=== PATIENT | female | born 1945 | race Caucasian/White ===

== ENCOUNTER → 2017-01-08 | Outpatient (CLI) | payer OTHER ==
[~2017-01-08] MED LIST: ACET1TAB84 PO; ALBU18002 INH; ALLO100T PO; APR50 PO; ASPI81TA28 PO; BACL10TA PO; CLBCRM30 EXT; CMD2 PO; CMD4 PO; INSU0.01 SC; INSUINJ12 SQ; LSX40 PO; LVMI SC; MAGN1TAB15 PO; MAGNTAB17 PO; METO1TAB71 PO; METO2.5T PO; NTRGSL/4 UT; NVLG SQ; NVLGI SC; NVLNI SC; OMEP20CA9 PO; OXYC1TAB3 PO; OXYC5TAB PO; POTA20TA16 PO; ROPI0.5T15 PO; ROPI2TAB6 PO; ROSU40TA PO; RQP/2 PO; SPR25 PO; TPRSR/100 PO; VTMD1000 PO; XPNIN INH
[2017-01-08 17:19] LABS: HEMATOCRIT 37.9 % (37-47); MEAN CELL VOLUME 88.8 fL (80-100); MEAN CORPUSCULAR HEMOGLOBIN 27.2 pg (25-34); MEAN CORPUSCULAR HGB CONC 30.6 g/dl (32-36); MEAN PLATELET VOLUME 9.5 fL (7.4-10.4); PLATELET COUNT 294 K/uL (130-400); RED BLOOD COUNT 4.27 M/uL (4.2-5.4); WHITE BLOOD COUNT 8.21 K/uL (4.8-10.8)
[2017-01-08 17:28] LABS: AST/SGOT 29 U/L (15-37); BLOOD UREA NITROGEN 75 mg/dl (7-18); BUN/CREATININE RATIO 37.7 (10-20); CALCIUM 9.2 mg/dl (8.5-10.1); CARBON DIOXIDE 32 mmol/L (21-32); CHLORIDE 92 mmol/L (98-107); GLUCOSE 234 mg/dl (70-99); POTASSIUM 3.3 mmol/L (3.5-5.1); SODIUM 135 mmol/L (136-145); URIC ACID 11.1 mg/dl (2.6-7.2)
[2017-01-08 17:32] LABS: ALKALINE PHOSPHATASE 87 U/L (45-117); ALT/SGPT 23 U/L (12-78)
[2017-01-08 17:34] LABS: FERRITIN 90.7 ng/ml (8.0-388.0)
== END | disposition home or self-care (01) ==
LOC: C.LABPVFM 10:29
PROVIDERS: ATTEND Internal Medicine
DX: D64.9 Anemia, unspecified (principal); I12.9 Hypertensive chronic kidney disease with stage 1 through stage 4 chronic kidney disease, or unspecified chronic kidney disease; E55.9 Vitamin D deficiency, unspecified; N18.3 Chronic kidney disease, stage 3 (moderate); R60.9 Edema, unspecified; M10.9 Gout, unspecified

== ENCOUNTER → 2017-01-16 | Outpatient (CLI) | payer OTHER ==
--- NOTE | 2017-01-16 10:54 | DIAGNOSTIC IMAGING REPORT ---
CT OF THE CHEST WITHOUT IV CONTRAST CLINICAL HISTORY: Carcinoid tumor. COMPARISON STUDY: Chest CT October 19, 2013 and June 12, 2016 and PET/CT September 07, 2015. CT DOSE: 714.79 mGycm TECHNIQUE: Axial images of the chest were obtained without IV contrast. Images were reviewed in the axial, sagittal, and coronal planes. IV contrast was not administered for this examination. FINDINGS: No enlarged axillary, mediastinal or hilar lymph nodes are present. There are findings consistent with a right middle lobectomy. Mild opacity within the operative bed is noted along the resection margin. Numerous pulmonary nodules are similar to exam of June 12, 2016 hours, several these have increased in size since exam of October 19, 2013. The largest is a 1 cm right lower lobe nodule shown image 44 of 63. This is unchanged since exam of June 12, 2016 but increased in size since earlier exams. Numerous additional nodules are similar in appearance to prior CT. No new nodules are identified. No suspicious osseous lesions are present. Evaluation for hilar lymphadenopathy is suboptimal on this unenhanced exam. There is moderate cardiomegaly and extensive coronary artery calcification. There is no pneumothorax or pleural effusion. The gallbladder is surgically absent. IMPRESSION: 1. Findings consistent with interval right middle lobectomy. Mild opacity within the operative bed is likely postsurgical but should be assessed on subsequent studies. 2. No enlarged thoracic lymph nodes although evaluation for hilar lymphadenopathy is suboptimal on this unenhanced exam. 3. Numerous pulmonary nodules measuring up to 1 cm. These are unchanged since CT of June 12, 2016 but the majority of these have moderately increased in size since initial CT of October 19, 2013. These remain indeterminate and slow growing neoplasms could have this imaging appearance. Electronically signed by: Dennis Hernadez M.D. 01/16/2017 10:53 AM Dictated Date/Time: 01/16/2017 10:36 AM
== END | disposition home or self-care (01) ==
LOC: C.CTS 10:03
PROVIDERS: ATTEND Surgery
DX: D3A.00 Benign carcinoid tumor of unspecified site (principal); Z90.2 Acquired absence of lung [part of]; R91.8 Other nonspecific abnormal finding of lung field

== ENCOUNTER 2017-02-24 07:29 | Emergency (ER) | payer OTHER ==
[~2017-02-24 07:29] MED LIST changes: -ACET1TAB84 PO; -ALBU18002 INH; -ALLO100T PO; -APR50 PO; -ASPI81TA28 PO; -CLBCRM30 EXT; -CMD4 PO; -LSX40 PO; -LVMI SC; -MAGNTAB17 PO; -METO2.5T PO; -NTRGSL/4 UT; -NVLG SQ; -NVLNI SC; -OMEP20CA9 PO; -OXYC1TAB3 PO; -POTA20TA16 PO; -ROPI0.5T15 PO; -ROPI2TAB6 PO; -ROSU40TA PO; -RQP/2 PO; -SPR25 PO; -TPRSR/100 PO; -VTMD1000 PO
[2017-02-24 07:33] VITALS: PULSE 72; TEMP 36.5; O2SAT 97; Ht 167.6 cm
[2017-02-24] MEDS ORDERED: OXYCODONE HCL IR 5 MG TAB (IMMEDIATE RELEASE) PO STA (07:50)
--- NOTE | 2017-02-24 08:29 | DIAGNOSTIC IMAGING REPORT ---
RIGHT KNEE 3 VIEWS CLINICAL HISTORY: Right knee pain. COMPARISON: None FINDINGS: Extensive vascular calcification is present. Alignment of the total right knee arthroplasty is anatomic. There is no periprosthetic fracture or lucency. There is a moderate size right knee joint effusion. There is osteophytosis along the patella. IMPRESSION: 1. Status post total right knee arthroplasty. Hardware intact with no periprosthetic fracture or lucency. 2. Moderate size right knee joint effusion. Electronically signed by: Dennis Hernadez M.D. 02/24/2017 8:28 AM Dictated Date/Time: 02/24/2017 8:26 AM
--- NOTE | 2017-02-24 08:32 | EMERGENCY ROOM VISIT NOTE ---
ED Visit Note First contact with patient: 07:38 CHIEF COMPLAINT: Right knee pain times one day HISTORY OF PRESENT ILLNESS: Patient is a 71-year-old white female who presents emergency department for evaluation of pain in her right knee. She states that it started yesterday. She is status post bilateral total knee arthroplasties performed in 2003. She states that she has been doing well until just yesterday. She denies any fall or direct trauma to the knee, no increased physical activity or unusual activity that would have caused her pain. She largely in the anterior aspect of the knee. She feels it radiating down her chandler slightly. She does have a history of gout. She tried applying BenGay and taking Tylenol which did not help. She had to start walking with a cane.She notes pain with weightbearing, flexion and extension. She presently rates her discomfort a 10/10. She does not have any symptoms in the left leg. She denies any calf or leg pain or swelling. No numbness or tingling. REVIEW OF SYSTEMS: Review of systems as per HPI. All other systems reviewed were negative. At least 6 systems reviewed. PMH: Electronic medical records are reviewed and summarized as above/below. See Problem List. SOCIAL HISTORY: Patient lives at home. . PHYSICAL EXAM: Vital Signs: Reviewed Nurse's notes. CONSTITUTIONAL: Patient is a 71-year-old female who is awake and alert and seated in a wheelchair in no acute distress. HEART: Regular rate and rhythm. LUNGS: Clear to auscultation. MUSCULOSKELETAL: Examination of the right knee notes a well-healed anterior surgical incision. There is no significant soft tissue swelling. No joint effusion. No increased warmth or induration. There is no crepitus with range of motion. The knee is globally tender to palpation. No localized tenderness is appreciated. She can extend fully, flexes greater than 90. The calves are soft and nontender. Distal pulses are easily palpable. Chronic venostasis changes noted in the lower legs bilaterally. EMERGENCY DEPARTMENT COURSE: Patient was medicated with oxycodone 10 mg orally. Ice pack was applied. X-rays of the right knee were obtained. There was no evidence for fracture or lucency around the hardware. Differential diagnoses entertained included septic joint, sprain, strain, failed prosthesis, gouty arthropathy, among others. Patient was reviewed with attending physician. She was encouraged to follow-up with Dr. Dyer's office week for recheck of her right knee. RIGHT KNEE 3 VIEWS CLINICAL HISTORY: Right knee pain. COMPARISON: None FINDINGS: Extensive vascular calcification is present. Alignment of the total right knee arthroplasty is anatomic. There is no periprosthetic fracture or lucency. There is a moderate size right knee joint effusion. There is osteophytosis along the patella. IMPRESSION: 1. Status post total right knee arthroplasty. Hardware intact with no periprosthetic fracture or lucency. 2. Moderate size right knee joint effusion. Problem List Medical Problems: (1) Abdominal pain Status: Resolved (2) Acute bronchitis Status: Resolved (3) Acute diastolic CHF (congestive heart failure) Status: Resolved (4) Acute gouty arthropathy Status: Resolved (5) Acute renal failure Status: Resolved (6) Acute renal failure Status: Resolved (7) Anemia Status: Resolved (8) Anticoagulants,Lt,Current Use Status: Chronic (9) Arthritis Status: Chronic (10) Atrial fibrillation Status: Resolved (11) Atrial fibrillation Status: Chronic (12) Benign hypertension Status: Chronic (13) CHF (congestive heart failure) Status: Resolved (14) CHF exacerbation Status: Resolved (15) Cholecystitis Status: Resolved (16) Chronic Kidney Disease, Unspecified Status: Chronic (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 (18) Dehydration Status: Resolved (19) Diabetes mellitus Status: Chronic (20) Esophageal Reflux Status: Chronic (21) Gallstones Status: Resolved (22) Gallstones Status: Resolved (23) Hepatomegaly Status: Chronic (24) Hyperlipidemia Nec/Nos Status: Chronic (25) Hypotension Status: Resolved (26) Hypoxemia Status: Resolved (27) Left ankle pain Status: Resolved (28) Leg muscle spasm Status: Resolved (29) Lung mass Status: Chronic (30) Myocardial infarction Status: Resolved (31) Occipital neuralgia Status: Resolved (32) Pneumonia Status: Resolved (33) Pneumonia Status: Resolved (34) Shingles Status: Resolved (35) Subtherapeutic anticoagulation Status: Resolved Surgical Problems: (1) Appendectomy Status: Resolved (2) Hx of CABG Status: Resolved (3) Hysterectomy Status: Resolved (4) Replacement of total knee joint Status: Resolved (5) Status post double vessel coronary artery bypass Status: Resolved Current/Historical Medications Scheduled Allopurinol (Zyloprim), 200 MG PO DAILY Aspirin (Aspirin Ec), 81 MG PO QAM Cholecalciferol (Vitamin D3), 1,000 INTUNIT PO QAM Furosemide (Furosemide), 80 MG PO TID Hydralazine HCl (Hydralazine HCl), 50 MG PO TID Insulin Detemir (Levemir), 90 UNIT SC AMPM Insulin Human NPH (Novolin N), 35-48 UNIT SC HS Magnesium Chloride-Calcium Car (Slow-Mag), 2 TAB PO TID Metolazone (Zaroxolyn), 2.5 MG PO DAILY Metoprolol Succinate (Metoprolol Succinate ER), 100 MG PO DAILY Omeprazole (Prilosec), 20 MG PO HS Potassium Ext Rel (Klor-Con), 20 MEQ PO QID Ropinirole (Requip), 0.5 MG PO QPM Rosuvastatin Calcium (Crestor), 40 MG PO QAM Warfarin Sod (Coumadin), 4 MG PO UD Scheduled PRN Nitroglycerin (Nitrostat), 0.4 MG UT UD PRN for Chest Pain Oxycodone Immediate Rel Tab (Roxicodone Ir), 1-2 TAB PO Q4H PRN for Severe Pain Miscellaneous Medications Albuterol Sulfate (Proair Respiclick) Clobetasol Propionate (Clobetasol Propionate Cream 0.05%), 1 APPLN EXT Insulin Aspart (Novolog) Allergies Coded Allergies: No Known Allergies (Unverified , 02/24/17) Vital Signs Date Time Temp Pulse Resp B/P Pulse Ox O2 Delivery O2 Flow Rate FiO2 02/24/17 08:54 189/90 02/24/17 07:33 36.5 72 16 205/89 97 Medications Administered Medications (Trade) Dose Ordered Sig/Scott Route Start Time Stop Time Status Last Admin Dose Admin Oxycodone HCl (Roxicodone Immediate Rel Tab) 10 mg NOW STAT PO 02/24/17 07:50 02/24/17 07:52 DC 02/24/17 08:21 10 MG Departure Information Impression Primary Impression: Right knee pain Additional Impression: History of total knee arthroplasty Prescriptions Oxycodone Immediate Rel Tab (ROXICODONE IR) 5 Mg Tab 1-2 TAB PO Q4H Y for Severe Pain, #20 TAB For Initial Treatment Prov: Sahra Paez PA 02/24/17 Referrals RV. Prasad MD (PCP) Braulio Dyer M.D. Patient Instructions My [facility] Additional Instructions DO NOT drive, drink alcohol, operate machinery, or perform dangerous activities today. You were given medications in the ER that can affect your ability to safely function or operate a vehicle. Percocet 5/325 mg: Take 1-2 pills every four hours for breakthrough pain. Avoid alcohol, operating machinery or dangerous equipment, working on ladders or roofs, DRIVING, or situations where being under the influence may be dangerous. It is recommended to use an sjqv-non-fekbayp stool softener such as Colace, 100mg twice daily while taking this medication to avoid constipation. Ice compresses for 20 minutes at a time four times daily for 2-3 days. Use the cane or walker as needed. Rest and elevate your injury. Continue current medications. Return to the ER immediately for any numbness, tingling, severe pain, extreme swelling in the extremity or as needed. Call [facility] tomorrow to arrange follow up for your injury. Problem Qualifiers
[2017-02-24] MEDS ORDERED: NVLG SQ (08:39)
[2017-02-24] MEDS ORDERED: METO2.5T PO (08:39)
[2017-02-24] MEDS ORDERED: ROPI0.5T15 PO (08:39)
[2017-02-24] MEDS ORDERED: OXYC1TAB3 PO (08:43)
[2017-02-24 08:54] VITALS: BP 189/90
--- NOTE | 2017-02-24 14:14 | EMERGENCY ROOM VISIT NOTE ---
ED Visit Note First contact with patient: 07:38 I have personally evaluated this patient examined her and reviewed the pertinent labs and data. I have discussed the case with Marti Paez, the physician medical assistant per diem and agree with the plan. Please refer to the PA note This patient has a prosthetic knee replacement on the right she's had some pain. She's had no trauma. On my exam, it is not red or warm. Her x-ray shows a moderate effusion. We are going treated with pain management. she's going to follow-up with Dr. Dyer. At this point, she has nothing to suggest infection.
[2017-08-03] MEDS ORDERED: CLBCRM30 EXT (08:39)
[2017-08-03] MEDS ORDERED: CMD4 PO (08:39)
[2017-08-03] MEDS ORDERED: NVLNI SC (08:39)
[2017-08-03] MEDS ORDERED: LVMI SC (08:39)
[2017-08-03] MEDS ORDERED: ALLO100T PO (08:39)
[2017-08-03] MEDS ORDERED: TPRSR/100 PO (08:39)
[2017-08-03] MEDS ORDERED: ALBU18002 INH (08:39)
[2017-08-03] MEDS ORDERED: MAGNTAB17 PO (08:39)
[2017-08-03] MEDS ORDERED: NTRGSL/4 UT (10:00)
[2017-08-03] MEDS ORDERED: VTMD1000 PO (14:05)
[2017-08-03] MEDS ORDERED: APR50 PO (14:05)
[2017-08-03] MEDS ORDERED: LSX40 PO (15:23)
[2017-08-03] MEDS ORDERED: POTA20TA16 PO (16:25)
[2017-08-03] MEDS ORDERED: OMEP20CA9 PO (16:25)
[2017-08-03] MEDS ORDERED: ROSU40TA PO (16:25)
[2017-08-03] MEDS ORDERED: ASPI81TA28 PO (16:29)
== END 2017-02-24 08:55 | disposition home or self-care (01) ==
LOC: C.EDB 07:30 → C.EDA 08:55
DX: M25.561 Pain in right knee (principal); Z96.653 Presence of artificial knee joint, bilateral; M10.9 Gout, unspecified; E11.9 Type 2 diabetes mellitus without complications; K21.9 Gastro-esophageal reflux disease without esophagitis; E78.5 Hyperlipidemia, unspecified; I25.2 Old myocardial infarction; Z87.01 Personal history of pneumonia (recurrent); Z95.1 Presence of aortocoronary bypass graft; Z90.710 Acquired absence of both cervix and uterus; Z90.49 Acquired absence of other specified parts of digestive tract; Z79.82 Long term (current) use of aspirin; Z79.4 Long term (current) use of insulin; Z79.01 Long term (current) use of anticoagulants; Z79.899 Other long term (current) drug therapy

== ENCOUNTER → 2017-02-25 | Outpatient (CLI) | payer OTHER ==
[~2017-02-25] VITALS: Ht 167.6 cm; Wt 118.3 kg
[~2017-02-25] MED LIST changes: +ACET1TAB84 PO; +ALBU18002 INH; +ALLO100T PO; +APR50 PO; +ASPI81TA28 PO; -BACL10TA PO; +CLBCRM30 EXT; -CMD2 PO; +CMD4 PO; -INSU0.01 SC; -INSUINJ12 SQ; +LSX40 PO; +LVMI SC; -MAGN1TAB15 PO; +MAGNTAB17 PO; -METO1TAB71 PO; +METO2.5T PO; +NTRGSL/4 UT; +NVLG SQ; -NVLGI SC; +NVLNI SC; +OMEP20CA9 PO; +OXYC1TAB3 PO; -OXYC5TAB PO; +POTA20TA16 PO; +ROPI0.5T15 PO; +ROPI2TAB6 PO; +ROSU40TA PO; +RQP/2 PO; +SPR25 PO; +TPRSR/100 PO; +VTMD1000 PO; -XPNIN INH
[2017-02-25 13:30] VITALS: BP 140/52; PULSE 40; Ht 167.6 cm; Wt 118.3 kg
[2017-02-25 13:32] VITALS: PULSE 53
== END | disposition home or self-care (01) ==
LOC: C.NEUR 12:55
PROVIDERS: ATTEND Internal Medicine Pulmonary Disease
DX: G47.30 Sleep apnea, unspecified (principal); G25.81 Restless legs syndrome

== ENCOUNTER → 2017-03-04 | Outpatient (CLI) | payer OTHER ==
[~2017-03-04] MED LIST changes: +DICL50TA3 PO; +KFL500 PO; +WARF4TAB8 PO
[2017-03-04 12:32] LABS: URINE APPEARANCE CLEAR (CLEAR); URINE BILIRUBIN NEG (NEG); URINE COLOR YELLOW; URINE EPITHELIAL CELL AUTO >30 /lpf (0-5); URINE NITRITE NEG (NEG); URINE PH 6.5 (4.5-7.5); URINE SPECIFIC GRAVITY 1.012 (1.000-1.030); UROBILINOGEN NEG (NEG)
[2017-03-04 12:35] LABS: HEMATOCRIT 36.6 % (37-47); MEAN CELL VOLUME 86.5 fL (80-100); MEAN CORPUSCULAR HEMOGLOBIN 27.4 pg (25-34); MEAN CORPUSCULAR HGB CONC 31.7 g/dl (32-36); MEAN PLATELET VOLUME 9.1 fL (7.4-10.4); PLATELET COUNT 364 K/uL (130-400); RED BLOOD COUNT 4.23 M/uL (4.2-5.4); WHITE BLOOD COUNT 9.08 K/uL (4.8-10.8)
[2017-03-04 12:43] LABS: MANUAL MICROSCOPIC REQUIRED? NO; REVIEW REQ? NO
[2017-03-04 13:03] LABS: URINE PROTIEN/CREAT RATIO 0.1 (0-0.2)
[2017-03-04 13:11] LABS: ALT/SGPT 35 U/L (12-78); AST/SGOT 32 U/L (15-37); BLOOD UREA NITROGEN 97 mg/dl (7-18); BUN/CREATININE RATIO 46.2 (10-20); CALCIUM 9.1 mg/dl (8.5-10.1); CARBON DIOXIDE 36 mmol/L (21-32); CHLORIDE 90 mmol/L (98-107); GLUCOSE 125 mg/dl (70-99); POTASSIUM 2.8 mmol/L (3.5-5.1); SODIUM 134 mmol/L (136-145)
[2017-03-04 13:13] LABS: ALB/GLOB RATIO 0.8 (0.9-2); ALKALINE PHOSPHATASE 110 U/L (45-117); CHOLESTEROL 96 mg/dl (0-200); CHOLESTEROL/HDL RATIO 3.6; HDL CHOLESTEROL 27 mg/dl; LDL CHOLESTEROL CALCULATED 42 mg/dl; TRIGLYCERIDES 133 mg/dl (0-150); VERY LOW DENSITY LIPOPROT CALC 27 mg/dl
[2017-03-04 13:18] LABS: ESTIMATED AVERAGE GLUCOSE 137 mg/dl; HA1C FLAG Normal (Normal)
== END | disposition home or self-care (01) ==
LOC: C.LABPVFM 07:59
PROVIDERS: ATTEND Internal Medicine Nephrology
DX: Z86.79 Personal history of other diseases of the circulatory system (principal); E55.9 Vitamin D deficiency, unspecified; R80.9 Proteinuria, unspecified; D64.9 Anemia, unspecified; N18.3 Chronic kidney disease, stage 3 (moderate); M10.9 Gout, unspecified; D3A.00 Benign carcinoid tumor of unspecified site; E11.8 Type 2 diabetes mellitus with unspecified complications

== ENCOUNTER → 2017-03-11 | Outpatient (CLI) | payer OTHER ==
[2017-03-11 13:36] LABS: BLOOD UREA NITROGEN 74 mg/dl (7-18); BUN/CREATININE RATIO 46.2 (10-20); CALCIUM 9.3 mg/dl (8.5-10.1); CARBON DIOXIDE 32 mmol/L (21-32); CHLORIDE 95 mmol/L (98-107); GLUCOSE 139 mg/dl (70-99); SODIUM 137 mmol/L (136-145)
== END | disposition home or self-care (01) ==
LOC: C.LABPVFM 07:49
PROVIDERS: ATTEND Internal Medicine
DX: E87.6 Hypokalemia (principal)

== ENCOUNTER → 2017-03-13 | Outpatient (CLI) | payer OTHER ==
[2017-03-13 15:05] LABS: BLOOD UREA NITROGEN 52 mg/dl (7-18); BUN/CREATININE RATIO 40.3 (10-20); CALCIUM 8.9 mg/dl (8.5-10.1); CARBON DIOXIDE 30 mmol/L (21-32); CHLORIDE 107 mmol/L (98-107); GLUCOSE 111 mg/dl (70-99); MAGNESIUM 2.2 mg/dl (1.8-2.4); POTASSIUM 4.1 mmol/L (3.5-5.1); SODIUM 143 mmol/L (136-145)
== END | disposition home or self-care (01) ==
LOC: C.LAB1850 13:46
PROVIDERS: ATTEND Internal Medicine Cardiovascular Disease
DX: E87.6 Hypokalemia (principal)

== ENCOUNTER → 2017-03-18 | Outpatient (CLI) | payer OTHER ==
[2017-03-18 12:55] LABS: BLOOD UREA NITROGEN 26 mg/dl (7-18); BUN/CREATININE RATIO 18.5 (10-20); CARBON DIOXIDE 29 mmol/L (21-32); CHLORIDE 102 mmol/L (98-107); GLUCOSE 111 mg/dl (70-99); MAGNESIUM 1.9 mg/dl (1.8-2.4); POTASSIUM 4.3 mmol/L (3.5-5.1); SODIUM 139 mmol/L (136-145)
[2017-03-18 12:56] LABS: PHOSPHORUS 3.9 mg/dl (2.5-4.9)
== END | disposition home or self-care (01) ==
LOC: C.LABPVFM 08:06
PROVIDERS: ATTEND Internal Medicine Nephrology
DX: N18.3 Chronic kidney disease, stage 3 (moderate) (principal)

== ENCOUNTER → 2017-04-09 | Outpatient (CLI) | payer OTHER ==
[2017-04-09 13:11] LABS: BLOOD UREA NITROGEN 40 mg/dl (7-18); BUN/CREATININE RATIO 36.3 (10-20); CALCIUM 8.8 mg/dl (8.5-10.1); CARBON DIOXIDE 24 mmol/L (21-32); CHLORIDE 108 mmol/L (98-107); GLUCOSE 105 mg/dl (70-99); POTASSIUM 4.5 mmol/L (3.5-5.1); SODIUM 141 mmol/L (136-145)
[2017-04-09 13:12] LABS: PHOSPHORUS 3.5 mg/dl (2.5-4.9)
== END | disposition home or self-care (01) ==
LOC: C.LABPVFM 07:35
PROVIDERS: ATTEND Internal Medicine Nephrology
DX: N18.3 Chronic kidney disease, stage 3 (moderate) (principal)

== ENCOUNTER → 2017-05-10 | Outpatient (CLI) | payer OTHER ==
[2017-05-10 13:35] LABS: HEMATOCRIT 33.5 % (37-47)
[2017-05-10 13:43] LABS: ESTIMATED AVERAGE GLUCOSE 146 mg/dl; HA1C FLAG Normal (Normal)
== END | disposition home or self-care (01) ==
LOC: C.LABPVFM 08:10
PROVIDERS: ATTEND Nurse Practitioner Adult Health
DX: E11.8 Type 2 diabetes mellitus with unspecified complications (principal)

== ENCOUNTER → 2017-06-12 | Outpatient (CLI) | payer OTHER ==
[~2017-06-12] MED LIST changes: -KFL500 PO
[2017-06-12 13:27] LABS: BLOOD UREA NITROGEN 48 mg/dl (7-18); BUN/CREATININE RATIO 32.1 (10-20); CARBON DIOXIDE 24 mmol/L (21-32); CHLORIDE 104 mmol/L (98-107); GLUCOSE 114 mg/dl (70-99); SODIUM 138 mmol/L (136-145)
== END | disposition home or self-care (01) ==
LOC: C.LABPVFM 08:00
PROVIDERS: ATTEND Internal Medicine
DX: D49.0 Neoplasm of unspecified behavior of digestive system (principal)

== ENCOUNTER → 2017-06-14 | Outpatient (CLI) | payer OTHER ==
[~2017-06-14] MED LIST changes: +GADAVIST IV PRN
--- NOTE | 2017-06-14 17:20 | DIAGNOSTIC IMAGING REPORT ---
MRI OF THE ABDOMEN WITH AND WITHOUT CONTRAST PANCREAS PROTOCOL CLINICAL HISTORY: Intraductal papillary mucinous neoplasm. COMPARISON STUDY: MRI of the abdomen May 09, 2015 and right upper quadrant ultrasound February 24, 2016. TECHNIQUE: Utilizing a 1.5 Sofia magnet and dedicated coil, multiplanar, multiecho imaging of the abdomen was performed pre and postcontrast administration. Post contrast imaging was performed utilizing dynamic enhancement. Injection of 12.5 cc of Gadavist IV was uneventful. FINDINGS: The liver is enlarged. There is fatty infiltration of the liver. Mild splenomegaly is unchanged. A few nodules within visualized portions the lower lungs are better depicted on recent chest CT of January 16, 2017. These nodules remain indeterminate. A 9 mm nonenhancing T2 hyperintense lesion within the pancreatic body is unchanged since MRI of May 09, 2015. There is no pancreatic or biliary ductal dilatation. Two left adrenal nodules are unchanged since earlier exams. These are benign given stability. The right adrenal gland and right kidney are unremarkable. There is no hydronephrosis. There is no abdominal lymphadenopathy. Cardiomegaly is unchanged. Several left renal cysts are noted. IMPRESSION: 1. No change in the 9 mm cystic lesion within the pancreatic body since prior exam. This is suggestive of a side branch intraductal papillary neoplasm and no imaging follow-up for this lesion is needed. 2. Fatty liver. 3. Stable mild splenomegaly. Electronically signed by: Dennis Hernadez M.D. 06/14/2017 5:19 PM Dictated Date/Time: 06/14/2017 4:32 PM
== END | disposition home or self-care (01) ==
LOC: C.MRI 14:56
PROVIDERS: ATTEND Internal Medicine
DX: D49.0 Neoplasm of unspecified behavior of digestive system (principal); R16.1 Splenomegaly, not elsewhere classified; K76.0 Fatty (change of) liver, not elsewhere classified

== ENCOUNTER → 2017-06-24 | Outpatient (CLI) | payer OTHER ==
[~2017-06-24] MED LIST changes: -GADAVIST IV PRN
--- NOTE | 2017-06-24 14:31 | MAMMOGRAPHY REPORT ---
BILATERAL DIGITAL SCREENING MAMMOGRAM WITH CAD: 06/24/2017 CLINICAL HISTORY: Routine screening. Patient has no complaints. TECHNIQUE: Current study was also evaluated with a Computer Aided Detection (CAD) system. Bilateral CC and MLO views were obtained. COMPARISON: Comparison is made to exams dated: 06/20/2016 mammogram, 06/17/2015 mammogram, 04/20/2014 m ammogram, 03/31/2012 mammogram, 03/28/2011 mammogram, and 03/27/2010 mammogram - [facility] enter. BREAST COMPOSITION: There are scattered areas of fibroglandular density in both breasts. FINDINGS: No suspicious masses, calcifications, or areas of architectural distortion are noted in ei ther breast. There has been no significant interval change compared to prior exams. IMPRESSION: ACR BI-RADS CATEGORY 1: NEGATIVE There is no mammographic evidence of malignancy. A 1 year screening mammogram is recommended. The pa tient will receive written notification of the results. Approximately 10% of breast cancers are not detected with mammography. A negative mammographic report should not delay biopsy if a clinically suggestive mass is present. Kelsey Navarro M.D. /:06/24/2017 12:18:39 Senior Consulting Manager: Soledad RAMEY([place])([place]), [facility] letter sent: Normal 1/2 BI-RADS Code: ACR BI-RADS Category 1: Negative
== END | disposition home or self-care (01) ==
LOC: C.MAMM 09:54
PROVIDERS: ATTEND Internal Medicine
DX: Z12.31 Encounter for screening mammogram for malignant neoplasm of breast (principal)

== ENCOUNTER → 2017-07-17 | Outpatient (CLI) | payer OTHER ==
[~2017-07-17] MED LIST changes: +KFL500 PO
--- NOTE | 2017-07-17 14:02 | DIAGNOSTIC IMAGING REPORT ---
CT SCAN OF THE CHEST WITHOUT IV CONTRAST CLINICAL HISTORY: Follow-up for nodules. History of neuroendocrine tumor and right middle lobe resection. COMPARISON STUDY: Prior chest CT scans dated 01/16/2017 and 07/18/2014. TECHNIQUE: CT scan of the thorax was performed from the thoracic inlet to the upper abdomen. Images are reviewed in the axial, sagittal, and coronal planes. IV contrast was not administered for this examination as per the referring clinician. A dose lowering technique was utilized adhering to the principles of ALARA. CT DOSE: 720.49 mGycm FINDINGS: Thyroid: A 2 cm coarse calcification is again seen in the right thyroid lobe. Additional subcentimeter nodules and calcifications are identified throughout the gland. Thoracic aorta: There is atherosclerotic calcification of the thoracic aorta, which is normal in caliber and 4-vessel variant arch anatomy. Heart: The patient is status post midline sternotomy. The heart is enlarged and without pericardial effusion. The coronary arteries are densely calcified. The pulmonary trunk is dilated, measuring 3.8 cm in diameter. This suggests pulmonary artery hypertension. There is diminished attenuation of the cardiac blood pool as compared to the myocardium suggesting anemia. Lungs and pleural spaces: There are postoperative changes consistent with right middle lobe resection. Scarring is seen at the operative site. There are numerous (greater than 20) pulmonary nodules scattered throughout both lungs, overall similar in both size and distribution from 01/16/2017. The largest nodule is seen at the right lung base on image #233 and measures 1.1 cm. No airspace consolidation or pleural effusion is identified. The trachea and central airways are clear Mediastinum: There are numerous prominent mediastinal lymph nodes which measure up to 11 mm in short axis. Nicky: Not well assessed without IV contrast. Axillae: There is no axillary lymphadenopathy. Upper abdomen: The spleen is enlarged measuring 15 cm in length. The liver appears enlarged and steatotic. A small hiatal hernia is noted. A 1.3 cm left adrenal nodule meets CT criteria for a fat-containing adenoma. Skeletal structures: The skeletal structures are osteopenic. No lytic or blastic bony lesions are seen. Advanced arthritic change is present in the shoulders. Degenerative change is also seen in the thoracic spine. There is a 9 mm calcified nodule identified in the central spinal canal at the level of T9-T10. This is best seen on axial image #213. IMPRESSION: 1. Again seen are postoperative changes from right middle lobe resection. No airspace consolidation or pleural effusion is identified. 2. There are numerous (greater than 20) pulmonary nodules scattered throughout both lungs. These have not significantly changed from 01/16/2017 but have increased in size dating back to studies from 2014. These remain pathologically indeterminant. Given the history of carcinoid tumor slow-growing neoplasm is not excluded. 3. There is an indeterminant 9 mm calcified nodule seen within the central spinal canal at T9-T10. This is of indeterminate etiology, and although this could represent a disc fragment the appearance is atypical. A neoplasm such as meningioma or less likely ependymoma could also have this appearance. Correlation with a contrast-enhanced MRI of the thoracic spine is recommended for further assessment. 4. Cardiomegaly. 5. Hepatic steatosis and splenomegaly. 6. Additional findings as above. Electronically signed by: Albert Bonner M.D. 07/17/2017 2:01 PM Dictated Date/Time: 07/17/2017 1:35 PM
== END | disposition home or self-care (01) ==
LOC: C.CTS 12:46
PROVIDERS: ATTEND Surgery
DX: R91.8 Other nonspecific abnormal finding of lung field (principal); Z90.2 Acquired absence of lung [part of]; I51.7 Cardiomegaly; K76.0 Fatty (change of) liver, not elsewhere classified; R16.1 Splenomegaly, not elsewhere classified

== ENCOUNTER 2017-08-03 18:53 | Emergency (ER) | payer OTHER ==
[~2017-08-03] VITALS: Ht 167.6 cm; Wt 125.0 kg
[~2017-08-03 18:53] MED LIST changes: -ACET1TAB84 PO; -DICL50TA3 PO; -KFL500 PO; -ROPI2TAB6 PO; -RQP/2 PO; -SPR25 PO; -WARF4TAB8 PO
[2017-08-03 18:59] VITALS: TEMP 36.8; Ht 167.6 cm; Wt 125.0 kg
--- NOTE | 2017-08-03 19:15 | EMERGENCY ROOM VISIT NOTE ---
History First contact with patient: 19:03 Chief Complaint: MEDICATION REFILL REQUEST Stated Complaint: RESTLESS LEGS History of Present Illness The patient is a 71 year old female who presents to the Emergency Room with complaints of medication refill request. The patient states that she takes Requip 2 mg at night for restless leg syndrome. She states that she had to take a few extra in the recent past. He states that because of that she ran of her medication 2 days ago. She states that she cannot get it filled until the 12th of this month. She did follow with her diabetes doctor yesterday. The patient denies any chest pain or worsening shortness of breath from baseline. She states she would not be here if she had the medication at home and that is the only reason she presents to the emergency department. Review of Systems A 10 system review of systems was completed with positives and pertinent negatives listed in the HPI. 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 (18) Dehydration (19) Diabetes mellitus (20) Esophageal Reflux (21) Gallstones (22) Gallstones (23) Hepatomegaly (24) Hyperlipidemia Nec/Nos (25) Hypotension (26) Hypoxemia (27) Left ankle pain (28) Leg muscle spasm (29) Lung mass (30) Myocardial infarction (31) Occipital neuralgia (32) Pneumonia (33) Pneumonia (34) Shingles (35) Subtherapeutic anticoagulation Surgical Problems: (1) Appendectomy (2) Hx of CABG (3) Hysterectomy (4) Replacement of total knee joint (5) Status post double vessel coronary artery bypass Family History Diabetes mellitus Heart disease Hypertension Social History Smoking Status: Former Smoker Alcohol Use: none Drug Use: none Marital Status: Housing Status: lives with significant other Occupation Status: retired Current/Historical Medications Scheduled Allopurinol (Zyloprim), 200 MG PO DAILY Aspirin (Aspirin Ec), 81 MG PO QAM Cholecalciferol (Vitamin D3), 1,000 INTUNIT PO QAM Furosemide (Furosemide), 80 MG PO BID Hydralazine HCl (Hydralazine HCl), 50 MG PO TID Insulin Aspart (Novolog), SQ UD Insulin Detemir (Levemir), 35 UNIT SC AMPM Insulin Human NPH (Novolin N), 50 UNIT SC HS Magnesium Chloride-Calcium Car (Slow-Mag), 2 TAB PO TID Metoprolol Succinate (Metoprolol Succinate ER), 100 MG PO DAILY Omeprazole (Prilosec), 20 MG PO HS Potassium Ext Rel (Klor-Con), 20 MEQ PO QID Ropinirole (Requip), 2 MG PO HS Ropinirole Hydrochloride (Requip), 2 MG PO HS Rosuvastatin Calcium (Crestor), 40 MG PO QAM Spironolactone (Spironolactone), 25 MG PO DAILY Warfarin Sod (Coumadin), 4 MG PO UD Scheduled PRN Acetaminophen (Tylenol Arthritis Ext Rel), 1,300 MG PO Q8H PRN for Pain Albuterol Sulfate (Proair Respiclick), 2 PUFF INH Q4 PRN for SOB/Wheezing Nitroglycerin (Nitrostat), 0.4 MG UT UD PRN for Chest Pain Miscellaneous Medications Clobetasol Propionate (Clobetasol Propionate Cream 0.05%), 1 APPLN EXT Physical Exam Vital Signs Date Time Temp Pulse Resp B/P (MAP) Pulse Ox O2 Delivery O2 Flow Rate FiO2 08/03/17 19:40 57 160/63 94 08/03/17 18:59 36.8 63 20 177/63 93 Room Air Physical Exam VITALS: Vitals are noted on the nurse's note and reviewed by myself. Vital signs stable. GENERAL: This is a 71-year-old female, in no acute distress, nondiaphoretic, well-developed well-nourished. SKIN: The skin was without rashes, erythema, edema, or bruising. There is no tenting of the skin. Capillary reflex less than 2 seconds. HEAD: Normocephalic atraumatic. EARS: The external ears are normal in appearance. EYES: Pupils equal round and reactive to light and accommodation. Conjunctivae without injection, sclerae without icterus. Extraocular movements intact. NOSE: Patent, turbinates without inflammation or discharge. MOUTH: Mucous membranes moist. Tonsils are not enlarged. Pharynx without erythema or exudate. Uvula midline. Airway patent. Tongue does not deviate. NECK: Supple without nuchal rigidity. No JVD. HEART: Regular rate and rhythm without murmurs gallops or rubs. LUNGS: Clear to auscultation bilaterally without wheezes, rales or rhonchi. No retractions or accessory muscle use. MUSCULOSKELETAL: No muscle atrophy, erythema, or edema noted. Full range of motion in all extremities. Normal gait. Strength 5/5 throughout. NEURO: Patient was alert and oriented to person place and time. No focal neurological deficits. Medical Decision & Procedures Medications Administered Medications (Trade) Dose Ordered Sig/Scott Route Start Time Stop Time Status Last Admin Dose Admin Ropinirole HCl (Requip Tab) 2 mg ONE STAT PO 08/03/17 19:19 08/03/17 19:20 DC 08/03/17 19:48 2 MG ED Course The patient was seen and examined. Previous visits were reviewed. The patient presents to the emergency department only for medication refill. The patient states she would not be here otherwise. She denies any change in shortness of breath from baseline, chest pain or any other symptoms. The patient was given 2 mg Requip in the emergency department and a prescription. I advised her to take it to a pharmacy to have the 10 day prescription filled and she will likely have to pay kearney. The patient thinks that she may need a higher dose and I encouraged her to discuss this with her doctor. She should return with any worsening symptoms. The patient was also seen and examined by who agrees with the assessment and treatment plan. Medical Decision The differential diagnosis includes medication refill request, chronic pain, chronic restless leg syndrome, among others Medication Reconcilliation Current Medication List: was personally reviewed by me Blood Pressure Screening Patient's blood pressure: Elevated blood pressure Blood pressure disposition: Elevated BP felt to be situational Impression Primary Impression: Medication refill Departure Information Dispostion Home / Self-Care Condition GOOD Prescriptions Ropinirole (Requip) 2 Mg Tab 2 MG PO HS for 10 Days, #10 TAB Prov: Ashley Sellers PA-C 08/03/17 Referrals RV. Prasad MD (PCP) Patient Instructions My [facility], Restless Leg Syndrome Additional Instructions take the prescription to the pharmacy tomorrow Fill the rest when you can on the 12th Return with worsening symptoms
[2017-08-03] MEDS ORDERED: ROPINIROLE HCL 1 MG TAB PO STA (19:19)
--- NOTE | 2017-08-03 19:21 | EMERGENCY ROOM VISIT NOTE ---
ED Visit Note First contact with patient: 19:03 Patient was seen by our PA/VEHICLE INSURANCE AGENT. I was involved in the patient's care and did evaluate the patient myself. I was involved in the care throughout the ER stay. The patient needs a dose of Requip for her restless legs. She will be given a small prescription of this medication to last until her insurance kicks in to pay for her full prescription.
[2017-08-03] MEDS ORDERED: RQP/2 PO (19:23)
[2017-08-03] MEDS ORDERED: SPR25 PO (19:23)
[2017-08-03] MEDS ORDERED: ACET1TAB84 PO (19:23)
[2017-08-03] MEDS ORDERED: ROPI2TAB6 PO (19:26)
[2017-08-03 19:40] VITALS: BP 160/63; PULSE 57; O2SAT 94
[2017-09-14] MEDS ORDERED: KFL500 PO (12:03)
== END 2017-08-03 20:05 | disposition home or self-care (01) ==
LOC: C.EDB 18:57 → C.EDD 20:05
DX: Z76.0 Encounter for issue of repeat prescription (principal); I13.0 Hypertensive heart and chronic kidney disease with heart failure and stage 1 through stage 4 chronic kidney disease, or unspecified chronic kidney disease; I50.32 Chronic diastolic (congestive) heart failure; E11.22 Type 2 diabetes mellitus with diabetic chronic kidney disease; N18.9 Chronic kidney disease, unspecified; E78.5 Hyperlipidemia, unspecified; M10.9 Gout, unspecified; I48.91 Unspecified atrial fibrillation; I25.2 Old myocardial infarction; M19.021 Primary osteoarthritis, right elbow; K21.9 Gastro-esophageal reflux disease without esophagitis; Z87.891 Personal history of nicotine dependence; Z87.01 Personal history of pneumonia (recurrent); Z90.710 Acquired absence of both cervix and uterus; Z95.1 Presence of aortocoronary bypass graft; Z96.659 Presence of unspecified artificial knee joint; Z90.89 Acquired absence of other organs; Z83.3 Family history of diabetes mellitus; Z82.49 Family history of ischemic heart disease and other diseases of the circulatory system; Z79.01 Long term (current) use of anticoagulants; Z79.4 Long term (current) use of insulin; Z79.82 Long term (current) use of aspirin; Z79.899 Other long term (current) drug therapy

== ENCOUNTER → 2017-08-12 | Outpatient (CLI) | payer OTHER ==
[~2017-08-12] MED LIST changes: +ACET1TAB84 PO; +DICL50TA3 PO; +KFL500 PO; -METO2.5T PO; -OXYC1TAB3 PO; -ROPI0.5T15 PO; +ROPI2TAB6 PO; +RQP/2 PO; +SPR25 PO; +WARF4TAB8 PO
[2017-08-12 12:37] LABS: URINE PROTIEN/CREAT RATIO 0.2 (0-0.2); URINE TOTAL PROTEIN 15.2 mg/dl (0-11.9)
[2017-08-12 12:43] LABS: URINE APPEARANCE CLEAR (CLEAR); URINE BILIRUBIN NEG (NEG); URINE COLOR YELLOW; URINE NITRITE NEG (NEG); URINE PH 6.5 (4.5-7.5); URINE SPECIFIC GRAVITY 1.014 (1.000-1.030); UROBILINOGEN NEG (NEG)
[2017-08-12 12:47] LABS: MANUAL MICROSCOPIC REQUIRED? NO; REVIEW REQ? YES
[2017-08-12 12:54] LABS: BLOOD UREA NITROGEN 36 mg/dl (7-18); BUN/CREATININE RATIO 27.9 (10-20); CARBON DIOXIDE 31 mmol/L (21-32); CHLORIDE 104 mmol/L (98-107); GLUCOSE 97 mg/dl (70-99); POTASSIUM 4.4 mmol/L (3.5-5.1); SODIUM 138 mmol/L (136-145)
[2017-08-12 12:55] LABS: PHOSPHORUS 3.6 mg/dl (2.5-4.9)
[2017-08-12 13:03] LABS: HEMATOCRIT 34.5 % (37-47); MEAN CELL VOLUME 93.5 fL (80-100); MEAN CORPUSCULAR HEMOGLOBIN 26.8 pg (25-34); MEAN CORPUSCULAR HGB CONC 28.7 g/dl (32-36); MEAN PLATELET VOLUME 9.1 fL (7.4-10.4); PLATELET COUNT 318 K/uL (130-400); RED BLOOD COUNT 3.69 M/uL (4.2-5.4); WHITE BLOOD COUNT 8.28 K/uL (4.8-10.8)
[2017-08-12 13:18] LABS: URINE EPITHELIAL CELL AUTO >30 /lpf (0-5)
== END | disposition home or self-care (01) ==
LOC: C.LABPVFM 08:01
PROVIDERS: ATTEND Internal Medicine
DX: M10.9 Gout, unspecified (principal); E55.9 Vitamin D deficiency, unspecified; N18.3 Chronic kidney disease, stage 3 (moderate); D64.9 Anemia, unspecified; R80.9 Proteinuria, unspecified; I12.9 Hypertensive chronic kidney disease with stage 1 through stage 4 chronic kidney disease, or unspecified chronic kidney disease

== ENCOUNTER → 2017-08-27 | Outpatient (CLI) | payer OTHER ==
[~2017-08-27] VITALS: Ht 152.4 cm; Wt 122.4 kg
[~2017-08-27] MED LIST changes: -ROPI2TAB6 PO
[2017-08-27 13:11] VITALS: BP 121/64; PULSE 64; Ht 152.4 cm; Wt 122.4 kg
== END | disposition home or self-care (01) ==
LOC: C.NEUR 12:05
PROVIDERS: ATTEND Internal Medicine Pulmonary Disease
DX: G47.30 Sleep apnea, unspecified (principal); G25.81 Restless legs syndrome; D3A.00 Benign carcinoid tumor of unspecified site; I48.91 Unspecified atrial fibrillation

== ENCOUNTER → 2017-08-31 | Outpatient (CLI) | payer OTHER ==
[~2017-08-31] MED LIST changes: -DICL50TA3 PO; -KFL500 PO; -WARF4TAB8 PO
== END | disposition home or self-care (01) ==
LOC: C.LABPVFM 12:09
PROVIDERS: ATTEND Internal Medicine Nephrology
DX: I12.9 Hypertensive chronic kidney disease with stage 1 through stage 4 chronic kidney disease, or unspecified chronic kidney disease (principal); E55.9 Vitamin D deficiency, unspecified; D64.9 Anemia, unspecified; N18.3 Chronic kidney disease, stage 3 (moderate)

== ENCOUNTER 2017-09-10 11:58 | Inpatient (IN) | payer OTHER ==
[~2017-09-10] VITALS: Ht 167.6 cm; Wt 124.8 kg
[2017-09-10] MEDS ORDERED: WARF4TAB8 PO (12:34)
[2017-09-10] MEDS ORDERED: DICL50TA3 PO (12:34)
--- NOTE | 2017-09-10 13:00 | DIAGNOSTIC IMAGING REPORT ---
SINGLE VIEW CHEST CLINICAL HISTORY: Atypical chest pain. FINDINGS: An AP, portable, upright chest radiograph is compared to study dated 07/23/2016 and correlated with chest CT dated 07/17/2017. The examination is degraded by portable technique and patient rotation. The patient is status post midline sternotomy. The heart is enlarged and there is atherosclerotic calcification of the thoracic aorta. There is mild pulmonary vascular congestion. Suture material and scarring is noted in the right midlung. No airspace consolidation is seen typical for pneumonia and there is no large pleural effusion. No pneumothorax is seen. The skeletal structures are osteopenic. The bony thorax is grossly intact. IMPRESSION: 1. Cardiomegaly with mild pulmonary vascular congestion. 2. No airspace consolidation is seen typical for pneumonia and there is no large pleural effusion. Electronically signed by: Albert Bonner M.D. 09/10/2017 12:59 PM Dictated Date/Time: 09/10/2017 12:57 PM
[2017-09-10 13:13] LABS: BASO % 0.6 %; BASO ABS # 0.05 K/uL (0-0.2); COMPLETE YES; EOS % 2.3 %; HEMATOCRIT 29.4 % (37-47); IG% 0.4 %; LYMPH % 14.2 %; LYMPH ABS # 1.17 K/uL (1.2-3.4); MEAN CELL VOLUME 88.6 fL (80-100); MEAN CORPUSCULAR HEMOGLOBIN 27.1 pg (25-34); MEAN CORPUSCULAR HGB CONC 30.6 g/dl (32-36); MEAN PLATELET VOLUME 8.6 fL (7.4-10.4); MONO % 8.7 %; NEUT % 73.8 %; PLATELET COUNT 251 K/uL (130-400); RED BLOOD COUNT 3.32 M/uL (4.2-5.4); WHITE BLOOD COUNT 8.25 K/uL (4.8-10.8)
[2017-09-10 13:18] LABS: INR 1.7 (0.9-1.1); PROTHROMBIN TIME (PATIENT) 18.5 SECONDS (9.0-12.0)
[2017-09-10 13:29] LABS: BUN/CREATININE RATIO 32.7 (10-20); CALCIUM 8.2 mg/dl (8.5-10.1); POTASSIUM 4.3 mmol/L (3.5-5.1)
[2017-09-10] MEDS ORDERED: FUROSEMIDE INJ 80 MG in SYRINGE 0 ML IV STA (13:30)
[2017-09-10] MEDS ORDERED: FUROSEMIDE 40 MG/4 ML VIAL ONE (13:54)
[2017-09-10] MEDS ORDERED: DEXTROSE 50% 50 ML SYR ONE (14:59)
--- NOTE | 2017-09-10 15:57 | EMERGENCY ROOM VISIT NOTE ---
History Report prepared by Shahana: Randall Whitfield Under the Supervision of: Dr. Laron Willis M.D. First contact with patient: 12:31 Chief Complaint: RESPIRATORY PROBLEMS Stated Complaint: FILLING UP WITH FLUID Nursing Triage Summary: triage note; pt reports "i am filling up with fluid and i am short of breath this started oct ." History of Present Illness The patient is a 72 year old female who presents to the Emergency Room with complaints of worsening shortness of breath beginning 10 days ago. She states she has gained 17 pounds in the last 10 days. She believes she is filling up with fluid. The patient's shortness of breath is worsened with laying flat and exertion. She wears CPAP at night, but no supplemental oxygen normally. She also complains of mild non-productive cough. The patient denies chest pain, fever, chills, nausea, vomiting, or diarrhea. Source of History: patient Onset: Ten days ago Quality: other (shortness of breath) Timing: worsening Associated Symptoms: + cough (mild non-productive), No fevers, No chills, No chest pain, No nausea, No vomiting, No diarrhea Review of Systems See HPI for pertinent positives and negatives. A total of ten systems were reviewed and were otherwise negative. 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 (18) Dehydration (19) Diabetes mellitus (20) Esophageal Reflux (21) Gallstones (22) Gallstones (23) Hepatomegaly (24) Hyperlipidemia Nec/Nos (25) Hypotension (26) Hypoxemia (27) Left ankle pain (28) Leg muscle spasm (29) Lung mass (30) Myocardial infarction (31) Occipital neuralgia (32) Pneumonia (33) Pneumonia (34) Shingles (35) Subtherapeutic anticoagulation Surgical Problems: (1) Appendectomy (2) Hx of CABG (3) Hysterectomy (4) Replacement of total knee joint (5) Status post double vessel coronary artery bypass Family History Diabetes mellitus Heart disease Hypertension Social History Smoking Status: Never Smoker Alcohol Use: none Drug Use: none Marital Status: Housing Status: lives with significant other Occupation Status: retired Current/Historical Medications Scheduled Allopurinol (Zyloprim), 200 MG PO DAILY Aspirin (Aspirin Ec), 81 MG PO QAM Cholecalciferol (Vitamin D3), 1,000 INTUNIT PO QAM Diclofenac (Voltaren), 50 MG PO Q12 Furosemide (Furosemide), 80 MG PO TID Hydralazine HCl (Hydralazine HCl), 50 MG PO TID Insulin Aspart (Novolog), SQ UD Insulin Detemir (Levemir), 45 UNIT SC AMPM Insulin Human NPH (Novolin N), 50 UNIT SC HS Magnesium Chloride-Calcium Car (Slow-Mag), 2 TAB PO TID Metoprolol Succinate (Metoprolol Succinate ER), 100 MG PO DAILY Omeprazole (Prilosec), 20 MG PO HS Potassium Ext Rel (Klor-Con), 20 MEQ PO QID Ropinirole Hydrochloride (Requip), 2 MG PO HS Rosuvastatin Calcium (Crestor), 40 MG PO QAM Spironolactone (Spironolactone), 25 MG PO DAILY Warfarin Sod (Coumadin), 4 MG PO 2XWK Warfarin Sod (Jantoven), 2 MG PO 5XWK Scheduled PRN Acetaminophen (Tylenol Arthritis Ext Rel), 1,300 MG PO Q8H PRN for Pain Albuterol Sulfate (Proair Respiclick), 2 PUFF INH Q4 PRN for SOB/Wheezing Nitroglycerin (Nitrostat), 0.4 MG UT UD PRN for Chest Pain Miscellaneous Medications Clobetasol Propionate (Clobetasol Propionate Cream 0.05%), 1 APPLN EXT Allergies Coded Allergies: No Known Allergies (Unverified , 09/10/17) Physical Exam Vital Signs Date Time Temp Pulse Resp B/P (MAP) Pulse Ox O2 Delivery O2 Flow Rate FiO2 09/10/17 16:00 99 Nasal Cannula 2.0 09/10/17 15:32 42 16 Nasal Cannula 2.0 09/10/17 15:05 40 20 127/37 100 Nasal Cannula 2.0 09/10/17 13:57 46 20 139/77 98 Nasal Cannula 2.0 09/10/17 13:17 41 09/10/17 13:08 39 20 139/77 98 Room Air 09/10/17 13:08 96 T-piece 09/10/17 13:08 98 Nasal Cannula 2.0 09/10/17 12:02 36.5 46 22 126/65 94 Room Air Physical Exam GENERAL: Awake, alert, well-appearing, in no distress HENT: Normocephalic, atraumatic. Oropharynx unremarkable. Dry mucous membranes. EYES: Normal conjunctiva. Sclera non-icteric. NECK: Supple. No nuchal rigidity. FROM. Mild JVD. RESPIRATORY: Labored breathing with mild tripoding. No acute respiratory distress. Diminished at the bases with scattered rales and rhonchi. CARDIAC: Regular rate, normal rhythm. Extremities warm and well perfused. Pulses equal. ABDOMEN: Soft, non-distended. No tenderness to palpation. No rebound or guarding. No masses. RECTAL: Deferred. MUSCULOSKELETAL: Chest examination reveals no tenderness. The back is symmetrical on inspection without obvious abnormality. There is no CVA tenderness to palpation. No joint edema. LOWER EXTREMITIES: Calves are equal size bilaterally. No discoloration. 2+ bilateral pitting edema. NEURO: Normal sensorium. No sensory or motor deficits noted. SKIN: No rash or jaundice noted. Medical Decision & Procedures ER Provider Diagnostic Interpretation: X-ray: Per my interpretation, radiologist review. SINGLE VIEW CHEST FINDINGS: An AP, portable, upright chest radiograph is compared to study dated 07/23/2016 and correlated with chest CT dated 07/17/2017. The examination is degraded by portable technique and patient rotation. The patient is status post midline sternotomy. The heart is enlarged and there is atherosclerotic calcification of the thoracic aorta. There is mild pulmonary vascular congestion. Suture material and scarring is noted in the right midlung. No airspace consolidation is seen typical for pneumonia and there is no large pleural effusion. No pneumothorax is seen. The skeletal structures are osteopenic. The bony thorax is grossly intact. IMPRESSION: 1. Cardiomegaly with mild pulmonary vascular congestion. 2. No airspace consolidation is seen typical for pneumonia and there is no large pleural effusion. Electronically signed by: Albert Bonner M.D. 09/10/2017 12:59 PM Laboratory Results 09/10/17 12:50 Red Blood Count 3.32, Mean Corpuscular Volume 88.6, Mean Corpuscular Hemoglobin 27.1, Mean Corpuscular Hemoglobin Concent 30.6, Mean Platelet Volume 8.6, Neutrophils (%) (Auto) 73.8, Lymphocytes (%) (Auto) 14.2, Monocytes (%) (Auto) 8.7, Eosinophils (%) (Auto) 2.3, Basophils (%) (Auto) 0.6, Neutrophils # (Auto) 6.09, Lymphocytes # (Auto) 1.17, Monocytes # (Auto) 0.72, Eosinophils # (Auto) 0.19, Basophils # (Auto) 0.05 09/10/17 12:50 Test 09/10/17 12:50 White Blood Count 8.25 K/uL (4.8-10.8) Red Blood Count 3.32 M/uL (4.2-5.4) Hemoglobin 9.0 g/dL (12.0-16.0) Hematocrit 29.4 % (37-47) Mean Corpuscular Volume 88.6 fL (80-100) Mean Corpuscular Hemoglobin 27.1 pg (25-34) Mean Corpuscular Hemoglobin Concent 30.6 g/dl (32-36) Platelet Count 251 K/uL (130-400) Mean Platelet Volume 8.6 fL (7.4-10.4) Neutrophils (%) (Auto) 73.8 % Lymphocytes (%) (Auto) 14.2 % Monocytes (%) (Auto) 8.7 % Eosinophils (%) (Auto) 2.3 % Basophils (%) (Auto) 0.6 % Neutrophils # (Auto) 6.09 K/uL (1.4-6.5) Lymphocytes # (Auto) 1.17 K/uL (1.2-3.4) Monocytes # (Auto) 0.72 K/uL (0.11-0.59) Eosinophils # (Auto) 0.19 K/uL (0-0.5) Basophils # (Auto) 0.05 K/uL (0-0.2) RDW Standard Deviation 59.7 fL (36.4-46.3) RDW Coefficient of Variation 18.5 % (11.5-14.5) Immature Granulocyte % (Auto) 0.4 % Immature Granulocyte # (Auto) 0.03 K/uL (0.00-0.02) Prothrombin Time 18.5 SECONDS (9.0-12.0) Prothromb Time International Ratio 1.7 (0.9-1.1) Anion Gap 6.0 mmol/L (3-11) Est Creatinine Clear Calc Drug Dose 34.6 ml/min Estimated GFR () 28.0 Estimated GFR (Non- 24.2 BUN/Creatinine Ratio 32.7 (10-20) Calcium Level 8.2 mg/dl (8.5-10.1) Total Bilirubin 0.9 mg/dl (0.2-1) Direct Bilirubin 0.3 mg/dl (0-0.2) Aspartate Amino Transf (AST/SGOT) 20 U/L (15-37) Alanine Aminotransferase (ALT/SGPT) 24 U/L (12-78) Alkaline Phosphatase 80 U/L (45-117) Troponin I 0.029 ng/ml (0-0.045) Pro-B-Type Natriuretic Peptide 2333 pg/ml (0-900) Total Protein 6.9 gm/dl (6.4-8.2) Albumin 3.2 gm/dl (3.4-5.0) Lipase 151 U/L (73-393) Laboratory results reviewed by me Medications Administered Medications (Trade) Dose Ordered Sig/Scott Route Start Time Stop Time Status Last Admin Dose Admin Furosemide 80 mg/ Syringe 8 ml @ 4 mls/min NOW STAT IV 09/10/17 13:30 09/10/17 13:32 DC 09/10/17 13:30 4 MLS/MIN Dextrose (Dextrose 50% 50ML Syringe) 50 ml STK-MED ONCE .ROUTE 09/10/17 14:59 09/10/17 15:00 DC 09/10/17 15:09 50 ML ECG Indication: SOB/dyspnea Rate (beats per minute): 42 Rhythm: atrial fibrillation (with SVR) Findings: other (Nonspecific conduction delay. QRS of 124. LAD. ) Comparison ECG Date: January 31, 2016 Change: SVR is new, otherwise no change. ED Course 1234: The patient was evaluated in room C2B. A complete history and physical exam was performed. 1330: Ordered Furosemide 80 mg/Syringe 8 mL @ 4 mL/min IV. 1540: Upon reexamination, the patient was resting comfortably. I discussed the test results and treatment plan with her. The patient will be evaluated for further management. Medical Decision I reviewed the patient's past medical history, medications, and the nursing notes as described above. The patient's presentation and history were concerning for CHF, pneumonia, bronchitis, ACS, and PE. The patient is a 72-year-old woman with a past medical history of CHF on 80 of Lasix twice a day who presents to emergency department with worsening shortness of breath, dyspnea on exertion orthopnea with a 17 pound weight gain since the first of the month per history of present illness. Arrival the patient appears dyspneic with mild work of breathing but in no acute distress able to speak full sentences. She is afebrile and with stable vital signs. Patient's BNP is in the 2000 up from prior. CXR shows venous congestion. Given 80 mg of IV Lasix. Patient has also had persistent bradycardia in the 40s and intermittently in the 30s, although with stable blood pressure and mentating normally. Given this in setting of CHF exacerbation will admit for further management. Of note the patient took her insulin today but has not eaten and thus her glucose has been persistently low in the 40s. She was given 1 amp of D50. Case was discussed with DELFIN Britton, hospitalist will admit the patient for further management. Medication Reconcilliation Current Medication List: was personally reviewed by me Blood Pressure Screening Patient's blood pressure: Normal blood pressure Blood pressure disposition: Did not require urgent referral Consults Time Called: 1535 Consulting Physician: Dr. Abiel [place] Returned Call: [phone] Discussed the patient's case. The patient will be evaluated for further treatment and disposition. Impression Primary Impression: CHF exacerbation Scribe Attestation The scribe's documentation has been prepared under my direction and personally reviewed by me in its entirety. I confirm that the note above accurately reflects all work, treatment, procedures, and medical decision making performed by me. Departure Information Dispostion Being Evaluated By Hospitalist Referrals RV. Prasad MD (PCP) Patient Instructions My [facility]
[2017-09-10 16:00] VITALS: O2SAT 99; BMI 46.3
[2017-09-10] MEDS ORDERED: ALUMINUM/MAGNESIUM/SIMETH (MAALOX MAX) 30 ML UDC PO PRN (16:45)
[2017-09-10] MEDS ORDERED: MAGNESIUM HYDROXIDE SUSP 30 ML UDC PO PRN (16:45)
[2017-09-10] MEDS ORDERED: POLYETHYLENE (MIRALAX) 17 GM PACK PO PRN (16:45)
[2017-09-10] MEDS ORDERED: ALBUTEROL HFA 8 GM INHALER INH PRN (16:45)
[2017-09-10] MEDS ORDERED: ONDANSETRON INJ 2 MG/ML 2 ML VIAL IV PRN (16:45)
[2017-09-10] MEDS ORDERED: MoRPHine SULFATE 2 MG/ML CARP IV PRN (16:45)
[2017-09-10] MEDS ORDERED: NITROGLYCERIN 0.4 MG SL PER TAB CHARGE SL PRN (16:45)
--- NOTE | 2017-09-10 17:05 | History and Physical ---
History & Physical Date & Time of Service: Sep 10, 2017 at 16:46 Chief Complaint: Filling Up With Fluid Primary Care Physician: RV. Prasad MD History of Present Illness Source: patient, family ( at bedside ), clinic records, hospital records Patient is a pleasant 72 y/o female, with PMHx of a.fib, CAD s/p CABG, chronic diastolic CHF, chronic anemia, CKD stage III, arthritis, gout. HTN, T2DM, HLD, RLS, carcinoid, and GERD, who presented to the ED because of a 17 pound weight gain since Sep.01. She notes she recently had a follow up with Coty Larson for her diabetes and has been watching what she has been eating. Despite this, she has continued to gain weight. She notices most of her weight gain to her abdomen. She does have a h/o CHF. She has been taking her medications as prescribed. She follows w/ Dr. Hernandez. She denies any recently hospitalizations for CHF. +edema- R>L, notes associated muscle spasms to RLE. +orthopnea. +SOB at rest/exertion. +RLE erythema. Of note, patient was hypoglycemic in ED- states this is unusual for her, she took her medication this AM, but did not eat anything since 0530. Patient denies any fever, chills, sweats, lightheadedness, dizziness, vision changes, CP, palpitations, wheezing, cough, abdominal pain, nausea, vomiting, diarrhea, urinary symptoms, melena, numbness/ tingling, weakness, muscle/joint pain, anxiety/depression, active bleeding. Past Medical/Surgical History Medical Problems: a.fib CAD s/p CABG chronic diastolic CHF gout HTN T2DM HLD RLS GERD chronic anemia CKD stage III arthritis Surgical History: cholecystectomy s/p CABG hysterectomy appendectomy bilateral knee replacement right middle lobectomy and wedge resection to right upper lobe Family History Diabetes mellitus Heart disease Hypertension Social History Smoking Status: Never Smoker Smokeless Tobacco Use: No Alcohol Use: none Drug Use: none Marital Status: Housing status: lives with family Occupational Status: retired Immunizations History of Influenza Vaccine: Unknown Influenza Vaccine Date: Sep 03, 2012 History of Tetanus Vaccine?: Unknown Tetanus Immunization Date: Jun 01, 2005 History of Pneumococcal: Unknown Pneumococcal Date: Aug 10, 2013 History of Hepatitis B Vaccine: Unknown Multi-Drug Resistant Organisms History of MDRO: No Allergies Coded Allergies: No Known Allergies (Unverified , 09/10/17) Home Medications Scheduled Allopurinol (Zyloprim), 200 MG PO DAILY Aspirin (Aspirin Ec), 81 MG PO QAM Cholecalciferol (Vitamin D3), 1,000 INTUNIT PO QAM Diclofenac (Voltaren), 50 MG PO Q12 Furosemide (Furosemide), 80 MG PO TID Hydralazine HCl (Hydralazine HCl), 50 MG PO TID Insulin Aspart (Novolog), SQ UD Insulin Detemir (Levemir), 45 UNIT SC AMPM Insulin Human NPH (Novolin N), 50 UNIT SC HS Magnesium Chloride-Calcium Car (Slow-Mag), 2 TAB PO TID Metoprolol Succinate (Metoprolol Succinate ER), 100 MG PO DAILY Omeprazole (Prilosec), 20 MG PO HS Potassium Ext Rel (Klor-Con), 20 MEQ PO QID Ropinirole Hydrochloride (Requip), 2 MG PO HS Rosuvastatin Calcium (Crestor), 40 MG PO QAM Spironolactone (Spironolactone), 25 MG PO DAILY Warfarin Sod (Coumadin), 4 MG PO 2XWK Warfarin Sod (Jantoven), 2 MG PO 5XWK Scheduled PRN Acetaminophen (Tylenol Arthritis Ext Rel), 1,300 MG PO Q8H PRN for Pain Albuterol Sulfate (Proair Respiclick), 2 PUFF INH Q4 PRN for SOB/Wheezing Nitroglycerin (Nitrostat), 0.4 MG UT UD PRN for Chest Pain Miscellaneous Medications Clobetasol Propionate (Clobetasol Propionate Cream 0.05%), 1 APPLN EXT Physical Exam Vital Signs Date Time Temp Pulse Resp B/P (MAP) Pulse Ox O2 Delivery O2 Flow Rate FiO2 09/10/17 15:32 42 16 Nasal Cannula 2.0 09/10/17 15:05 40 20 127/37 100 Nasal Cannula 2.0 09/10/17 13:57 46 20 139/77 98 Nasal Cannula 2.0 09/10/17 13:17 41 09/10/17 13:08 39 20 139/77 98 Room Air 09/10/17 13:08 96 T-piece 09/10/17 13:08 98 Nasal Cannula 2.0 09/10/17 12:02 36.5 46 22 126/65 94 Room Air General Appearance: no apparent distress, + obese, + pertinent finding (O2 NC ) Head: normocephalic, atraumatic Eyes: normal inspection, PERRL ENT: hearing grossly normal Neck: supple Respiratory/Chest: lungs clear, no respiratory distress, no accessory muscle use Cardiovascular: regular rate, rhythm, + bradycardia Abdomen/GI: normal bowel sounds, non tender, soft Back: normal inspection Extremities/Musculoskelatal: no calf tenderness, + swelling (+1 pitting edema to LLE; +2-3 RLE edema), + pertinent finding (noted erythema + warmth to RLE anterior chandler region ) Neurologic/Psych: alert, normal mood/affect, oriented x 3 Skin: normal color, warm/dry, no rash Diagnostics Laboratory Results Results Past 24 Hours Test 09/10/17 12:50 09/10/17 14:35 09/10/17 14:36 09/10/17 14:57 Range/Units White Blood Count 8.25 4.8-10.8 K/uL Red Blood Count 3.32 4.2-5.4 M/uL Hemoglobin 9.0 12.0-16.0 g/dL Hematocrit 29.4 37-47 % Mean Corpuscular Volume 88.6 80-100 fL Mean Corpuscular Hemoglobin 27.1 25-34 pg Mean Corpuscular Hemoglobin Concent 30.6 32-36 g/dl Platelet Count 251 130-400 K/uL Mean Platelet Volume 8.6 7.4-10.4 fL Neutrophils (%) (Auto) 73.8 % Lymphocytes (%) (Auto) 14.2 % Monocytes (%) (Auto) 8.7 % Eosinophils (%) (Auto) 2.3 % Basophils (%) (Auto) 0.6 % Neutrophils # (Auto) 6.09 1.4-6.5 K/uL Lymphocytes # (Auto) 1.17 1.2-3.4 K/uL Monocytes # (Auto) 0.72 0.11-0.59 K/uL Eosinophils # (Auto) 0.19 0-0.5 K/uL Basophils # (Auto) 0.05 0-0.2 K/uL RDW Standard Deviation 59.7 36.4-46.3 fL RDW Coefficient of Variation 18.5 11.5-14.5 % Immature Granulocyte % (Auto) 0.4 % Immature Granulocyte # (Auto) 0.03 0.00-0.02 K/uL Prothrombin Time 18.5 9.0-12.0 SECONDS Prothromb Time International Ratio 1.7 0.9-1.1 Sodium Level 139 136-145 mmol/L Potassium Level 4.3 3.5-5.1 mmol/L Chloride Level 106 98-107 mmol/L Carbon Dioxide Level 27 21-32 mmol/L Anion Gap 6.0 3-11 mmol/L Blood Urea Nitrogen 65 7-18 mg/dl Creatinine 2.00 0.60-1.20 mg/dl Est Creatinine Clear Calc Drug Dose 34.6 ml/min Estimated GFR () 28.0 Estimated GFR (Non- 24.2 BUN/Creatinine Ratio 32.7 10-20 Random Glucose 67 70-99 mg/dl Calcium Level 8.2 8.5-10.1 mg/dl Total Bilirubin 0.9 0.2-1 mg/dl Direct Bilirubin 0.3 0-0.2 mg/dl Aspartate Amino Transf (AST/SGOT) 20 15-37 U/L Alanine Aminotransferase (ALT/SGPT) 24 12-78 U/L Alkaline Phosphatase 80 45-117 U/L Troponin I 0.029 0-0.045 ng/ml Pro-B-Type Natriuretic Peptide 2333 0-900 pg/ml Total Protein 6.9 6.4-8.2 gm/dl Albumin 3.2 3.4-5.0 gm/dl Lipase 151 73-393 U/L Bedside Glucose 39 40 49 70-90 mg/dl Test 09/10/17 15:30 Range/Units Bedside Glucose 151 70-90 mg/dl Diagnostic Radiology SINGLE VIEW CHEST CLINICAL HISTORY: Atypical chest pain. FINDINGS: An AP, portable, upright chest radiograph is compared to study dated 07/23/2016 and correlated with chest CT dated 07/17/2017. The examination is degraded by portable technique and patient rotation. The patient is status post midline sternotomy. The heart is enlarged and there is atherosclerotic calcification of the thoracic aorta. There is mild pulmonary vascular congestion. Suture material and scarring is noted in the right midlung. No airspace consolidation is seen typical for pneumonia and there is no large pleural effusion. No pneumothorax is seen. The skeletal structures are osteopenic. The bony thorax is grossly intact. IMPRESSION: 1. Cardiomegaly with mild pulmonary vascular congestion. 2. No airspace consolidation is seen typical for pneumonia and there is no large pleural effusion. Electronically signed by: Albert Bonner M.D. 09/10/2017 12:59 PM Dictated Date/Time: 09/10/2017 12:57 PM The status of this report is Signed. Draft = Not yet reviewed or approved by Radiologist. Signed = Reviewed and approved by Radiologist. EKG MERCED SESAY ID:[id number] 10-SEP-2017 13:03:05 [facility] Poor data quality, interpretation may be adversely affected Atrial fibrillation with slow ventricular response Left axis deviation Non-specific intra-ventricular conduction delay Nonspecific ST and T wave abnormality Abnormal ECG When compared with ECG of 31-JAN-2016 07:14, Vent. rate has decreased BY 35 BPM Confirmed by GLORIA LINTON ([id number]) on 09/10/2017 3:04:38 PM 25mm/s 10mm/mV 150Hz 8.0 SP2 12SL 241 DONNY: 13 Referred by: RV. Prasad Confirmed By: GLORIA LINTON Vent. rate 42 BPM NH interval * ms QRS duration 124 ms QT/QTc 564/470 ms P-R-T axes * -54 97 1945 (72 yr) Female 1lb Room: Loc:15 Biostatistics Director:SARAH Aguiar ind: Impression Assessment and Plan Patient is a pleasant 72 y/o female, with PMHx of a.fib, CAD s/p CABG, chronic diastolic CHF, chronic anemia, CKD stage III, arthritis, gout. HTN, T2DM, HLD, RLS, and GERD, who presented to the ED because of a 17 pound weight gain since Sep.01. Acute on chronic diastolic CHF exacerbation: - Admit to tele for cardiac monitoring - Obtain ECHO - IV Lasix 80 mg BID; hold PO Lasix 80 mg TID - Monitor I&Os and daily weights - Consult cardiology, appreciate recommendations ?RLE cellulitis and edema: - Check venous Doppler due to edema, muscle spasms, and subtherapeutic INR - IV Rocephin- check MRSA swab, if positive can add MRSA coverage CAD, s/p CAGB, a.fib, HLD- follows w/ Dr. Hernandez: - Continue ASA 81 mg daily, Crestor 40 mg daily, KCL supplement, Mag supplement - Hold Metoprolol 100 mg daily due to bradycardia - Continue Warfarin 4 mg on Tu, Fri, and 2 mg on all other days- follow PT/INR HTN: Continue Hydralazine 50 mg TID. Spironolactone 25 mg daily T2DM- follows w/ Coty Neo: - Continue Levemir 45 U BID - BSG ACHS and sliding insulin scale CKD, stage III- baseline Cr. 1.6-2.0- follows w/ Dr. Roman- STABLE: Follow PRP Chronic anemia- baseline hgb 9.0-10.0- STABLE: Follow CBC Gout: Continue Allopurinol 200 mg daily Carcinoid s/p middle lobectomy and wedge resection to right upper lobe- follows w/ Dr. Perkins GI Prophylaxis: Protonix DVT prophylaxis: Coumadin Code Status: LEVEL I, FULL Dispo: From home, lives w/ - PT/OT and CM consulted Attending Addendum: I have physically seen and examined this patient, have directed the physician assistants medical activities, and agree with the H&P as noted above with the following exceptions as noted. The patient is awake, alert and oriented 3, well-developed and well-nourished , normocephalic and atraumatic, lying in bed and in no acute distress. HEENT--PERRL, EOMI, mucous membranes and oropharynx dry. Neck--supple, no JVD or bruits, thyroid normal, trachea midline, no adenopathy. Heart--bradycardia, no extra beats, no murmurs, rubs or gallops. Lungs--clear bilaterally with good air movement, no respiratory distress, no accessory muscle use. Abdomen--normal bowel sounds and soft, nontender and nondistended, no hernias or masses, no organomegaly. Extremities--no cyanosis, clubbing. There is bilateral pretibial 1+ pitting Edema on the left 2+ on the right .There are good distal pulses b/l. Dermatologic--right lower extremity with erythema and warmth over the anterior chandler. Neurologic--cranial nerves II through XII grossly intact. Rheumatologic--normal range of motion, nontender, muscles and joints. Psychiatric--normal affect. Assessment and Plan: Acute on chronic diastolic CHF-- The patient will be admitted to telemetry for serial cardiac enzymes, cardiac rhythm monitoring and a 2-D echocardiogram with Dopplers. Change Lasix 80 mg by mouth 3 times a day to 80 mg IV twice a day. Serial BMP and magnesium levels Right lower extremity cellulitis/edema-- Ceftriaxone 1 g IV daily. Order lower extremity venous Doppler. CAD/hypertension/status post CABG/atrial fibrillation-- Continue aspirin, Crestor, potassium, magnesium, hydralazine and spironolactone. Hold metoprolol due to bradycardia. Continue warfarin and follow daily PT/INR. Diabetes mellitus-- Continue Levemir 45 units subcutaneous twice a day. Place on Accu-Cheks before meals and at bedtime with NovoLog coverage per scale. Level of Care Telemetry Advanced Directives Existing Advance Directive: No Existing Living Will: No Existing Power of Matchbook Maker: No Resuscitation Status FULL RESUSCITATION VTE Prophylaxis VTE Risk Assessment Done? Y/N: Yes Risk Level: Moderate Given or contraindicated: Warfarin (Coumadin) Social Service Consult None Apply
[2017-09-10 18:42] VITALS: BP 152/64; PULSE 44; TEMP 36.3; O2SAT 99
[2017-09-10] MEDS: FUROSEMIDE INJ 80 MG in SYRINGE 0 ML IV SCH (19:00)
[2017-09-10] MEDS: INSULIN ASPART 100 UNITS/ML 3 ML PEN SC SCH (21:00)
[2017-09-10] MEDS: CEFTRIAXONE SOD INJ 1 GM in DEXTROSE 5% ADD-VANTAGE 50ML 50 ML IV SCH (21:11)
[2017-09-10] MEDS: DICLOFENAC SOD 25 MG TABEC PO SCH (21:14)
[2017-09-10] MEDS: POTASSIUM CHLORIDE 20 MEQ TABCR PO SCH (21:15)
[2017-09-10] MEDS: ROPINIROLE HCL 1 MG TAB PO SCH (21:15)
[2017-09-10] MEDS: WARFARIN SOD 4 MG TAB PO SCH (21:17)
[2017-09-10] MEDS: MAGNESIUM CHLORIDE 64MG DELAYED REL TAB PO SCH (21:18)
[2017-09-10] MEDS: INSULIN DETEMIR FLEXPEN/FLEX TOUCH 100 UNITS/ML 3ML SC SCH (21:20)
--- NOTE | 2017-09-10 22:14 | DIAGNOSTIC IMAGING REPORT ---
ULTRASOUND R VENOUS DOPP LOWER EXT UNILAT CLINICAL HISTORY: Right leg swelling COMPARISON STUDY: No previous studies for comparison. FINDINGS: Real-time and color flow Doppler imaging were performed. Flow was seen within the femoral, popliteal and calf veins with no intraluminal thrombus demonstrated. The saphenous vein is patent. There is a mildly complex right popliteal cyst measuring 49 x 14 x 29 mm. IMPRESSION: No evidence of right lower extremity DVT. Electronically signed by: Franco Lopez M.D. 09/10/2017 10:13 PM Dictated Date/Time: 09/10/2017 10:12 PM
[2017-09-11] VITALS (7 sets, daily range): BP systolic 132–158; BP diastolic 52–77; PULSE 44–50; TEMP 36.4–36.6; O2SAT 92–95; BMI 45.7
--- NOTE | 2017-09-11 07:49 | Clinical Documentation Query ---
CLINICAL DOCUMENTATION QUERY In your clinical opinion is this patient being managed for: ( ) Acute kidney failure ( ) Not Agree ( ) Other explanation of clinical findings (Please Explain) ( ) Unable to determine (Please Define) ( ) Need to Discuss The medical record reflects the following clinical findings, treatment, and risk factors. Clinical Indicators: Serum creatinine increase from 1.30 to 2.00, GFR decrease 41.0 to 24.2, CKD 3, acute CHF, peripheral edema Treatment: Serial PRPs, Nephrology consult Risk Factors: Age, acute CHF, DM, obesity, HTN, hx acute renal failure, A-fib Please clarify and document your clinical opinion in the progress notes and discharge summary. Terms such as "probable", "suspected", "likely", "questionable", "possible", or "still to be ruled out" are acceptable. IF IN AGREEMENT, YOU MUST DOCUMENT ABOVE DIAGNOSTIC STATEMENT IN DAILY PROGRESS NOTES AND DISCHARGE SUMMARY. This document is not part of the patient's record. Thank You, Tamiko Fritz RN [phone]
[2017-09-11] MEDS: ROSUVASTATIN CALCIUM 20 MG TAB PO SCH (08:08)
[2017-09-11] MEDS: FUROSEMIDE INJ 80 MG in SYRINGE 0 ML IV SCH ×2 (08:08→16:54)
[2017-09-11] MEDS: SPIRONOLACTONE 25 MG TAB PO SCH (08:08)
[2017-09-11] MEDS: CHOLECALCIFEROL 1000 INTER.UNIT TAB PO SCH (08:09)
[2017-09-11] MEDS: ASPIRIN 81 MG ECTAB PO SCH (08:09)
[2017-09-11] MEDS: POTASSIUM CHLORIDE 20 MEQ TABCR PO SCH ×4 (08:09→20:02)
[2017-09-11] MEDS: ALLOPURINOL 100 MG TAB PO SCH (08:09)
[2017-09-11] MEDS: MAGNESIUM CHLORIDE 64MG DELAYED REL TAB PO SCH ×3 (08:09→20:02)
[2017-09-11] MEDS: PANTOprazole SOD 40 MG TAB PO SCH (08:09)
[2017-09-11] MEDS: DICLOFENAC SOD 25 MG TABEC PO SCH ×2 (08:09→20:04)
[2017-09-11] MEDS: INSULIN ASPART 100 UNITS/ML 3 ML PEN SC SCH ×4 (08:12→20:39)
[2017-09-11] MEDS: INSULIN DETEMIR FLEXPEN/FLEX TOUCH 100 UNITS/ML 3ML SC SCH ×2 (08:12→20:39)
--- NOTE | 2017-09-11 10:56 | CARDIOLOGY CONSULTATION REPORT ---
DATE OF CONSULTATION: 09/11/2017 DATE OF CONSULTATION: 09/11/2017 REASON FOR CONSULTATION: 1. Acute on chronic diastolic CHF. 2. CAD s/p CABG x2 vessels 2012. 3. Chronic Atrial Fibrillation with slow ventricular response rate. HISTORY OF PRESENT ILLNESS: Mrs. Ramires is a morbidly obese 72-year-old white female with a history of CAD s/p CABG x2 vessels 07/14/2013 (RANDHAWA to LAD, SVG to PDA), Chronic Atrial Fibrillation (on Coumadin), Chronic Diastolic CHF (initially diagnosed in 2003), insulin requiring Type 2 DM, stage 3 Chronic Kidney Disease, Hypertension, Dyslipidemia, COPD with both obstructive and restrictive features on PFTs, decreased diffusing capacity, Moderate Concentric LVH, Mild Aortic Stenosis, Mild to Moderate MR, Mild TR, Moderate Pulmonary Hypertension, Sleep Apnea, Restless Leg Syndrome, and Diabetic Neuropathy who was admitted acutely on 09/10/2017 after a 17 pound to 18 pound nonintentional weight gain since September 01. The patient denies any recent changes in her dietary salt intake, did not eat at any restaurants recently, and denies any recent changes in her medications. She has noticed most of the swelling around her abdomen, but has also had lower extremity edema and progressive shortness of breath over the past 10 days. She was admitted and noted to have an elevated BMP as well as mild pulmonary vascular congestion on chest x-ray. The patient has been started on Lasix 80 mg IV b.i.d. and has a negative fluid balance of 1.4 liters thus far. The patient is symptomatically improved. She offers no other complaints. She denies any chest pain, heaviness, tightness, pressure, or angina pectoris. Denies any neck, jaw, back or arm pain. Denies any palpitations, tachypalpitations, syncope, or near syncope. She does admit to chronic orthopnea and has noted some PND recently. The patient has had the following cardiac procedures/studies: 1. Cardiac Catheterization 07/27/2013: -- Extensive coronary artery calcifications. -- Severe LAD stenosis with severe mid RCA stenosis. LCX with mild disease. 2. Echocardiogram 08/14/2013: -- LVEF 60% to 65% with moderate concentric LVH, mild AI, mild MR, moderate TR with moderate pulmonary hypertension. 3. Echocardiogram 07/18/2014: -- LVEF 55% to 60%. -- Mild LVH with diastolic dysfunction. -- Moderately dilated LA. -- Normal RV size and systolic function. -- Mild aortic stenosis. -- Mild to moderate MR. -- Mild TR. -- Moderate pulmonary hypertension. 4. Echocardiogram 01/25/2016: -- LVEF 50% to 55%. -- Moderate concentric LVH with basal anteroseptal wall hypokinesis with abnormal septal wall motion consistent with postoperative status. Mid anteroseptum is mildly hypokinetic. -- Mild to moderate MR. -- Mild TR. -- Trace PI. -- Severe pulmonary hypertension. -- Elevated central venous pressure. -- Mild aortic stenosis. 5. Lexiscan Cardiolite 12/08/2015: -- Probable normal pharmacologic Cardiolite stress test. MEDICATIONS: 1. Coumadin 2 mg every Saturday, Saturday, Saturday, and Saturday, 4 mg every Saturday and Saturday. 2. Allopurinol 200 mg daily. 3. Aspirin 81 mg daily. 4. Vitamin D 1000 International Units daily. 5. Crestor 40 mg q.a.m. 6. Spironolactone 25 mg daily. 7. Protonix 40 mg daily. 8. Voltaren 50 mg p.o. q. 12 hour. 9. Hydralazine 50 mg t.i.d. 10. Potassium chloride 20 mEq q.i.d. 11. Requip 2 mg at bedtime. 12. Levemir insulin 45 units subcutaneous injection b.i.d. 13. Slo-Mag 128 mg t.i.d. 14. NovoLog sliding scale insulin. 15. Ceftriaxone 1 gram IV daily. 16. Lasix 80 mg IV b.i.d. 17. Tylenol 650 mg p.r.n. 18. Maalox Max p.r.n. 19. Milk of Magnesia p.r.n. 20. Zofran p.r.n. 21. Sublingual nitroglycerin p.r.n. 22. Morphine sulfate 2 mg IV q. 30 minutes p.r.n. for chest pain. 23. MiraLax 17 grams daily as needed for constipation. 24. Albuterol inhaler 2 puffs p.o. q. 4 hours p.r.n. for shortness of breath or wheezing. ALLERGIES: No known drug allergies. PAST MEDICAL HISTORY: 1. CAD status post CABG x2 vessels 07/31/2013 at [facility]. RANDHAWA to LAD, SVG to PDA. 2. Chronic atrial fibrillation (on chronic Coumadin). 3. Chronic diastolic CHF. 4. Insulin requiring type 2 diabetes mellitus with diabetic neuropathy. 5. Stage 3 chronic kidney disease. 6. Hypertension. 7. Dyslipidemia. 8. History of COPD with both restrictive and obstructive features on PFTs. 9. History of renal cyst. 10. Mild aortic stenosis. 11. History of carcinoid. 12. Status post right middle lobectomy and wedge resection of right upper lobe. 13. Hypertension. 14. Dyslipidemia. 15. Morbid obesity. 16. Gout. 17. Restless leg syndrome. 18. Chronic anemia. 19. Arthritis. 20. Status post cholecystectomy. 21. History of hysterectomy. 22. Status post appendectomy. 23. History of bilateral knee replacements. SOCIAL HISTORY: The patient is and lives with family. She is retired from work. She is a life-long nonsmoker. Does not drink alcohol. FAMILY HISTORY: Significant for diabetes mellitus, heart disease, and hypertension. PHYSICAL EXAMINATION: VITAL SIGNS: Temperature 36.5?C, pulse 48 and slightly irregular, respiration rate 18, no accessory muscle use. Blood pressure is 135/52, SPO2 is 95% on room air. GENERAL: The patient is in no acute distress. HEAD, EYES, EARS, NOSE, AND THROAT: Head is atraumatic, normocephalic. EOM intact. Sclera anicteric. Faces symmetric. No perioral cyanosis. NECK: Without obvious JVD. Jugular venous pressure is elevated. Carotid upstrokes +2 bilaterally without obvious bruits. CHEST AND LUNGS: Are with diminished breath sounds in bilateral bases, occasional crackles noted. CARDIOVASCULAR SYSTEM: S1 and S2 are regular with a grade 1/6 basal systolic murmur, grade 2/6 apical holosystolic murmur. No diastolic murmurs appreciated. No gallops or rubs. PMI is nonpalpable. No lifts, heaves, or thrills. No abdominal, aortic or renal bruits. ABDOMINAL EXAMINATION: Bowel sounds present. Abdomen is distended. No masses, organomegaly, or tenderness. EXTREMITIES: Are with +2 pitting edema of the right lower extremity to the proximal tibia, +2 pitting edema to the proximal tibia on the left. Pigmentation changes consistent with chronic edema are present. Calves are soft, nontender. NEUROLOGIC EXAMINATION: Patient is awake, alert and interactive. Answers questions appropriately. Speech is clear. Normal movement in bilateral upper and lower extremities. Gait pattern not assessed. Echocardiogram is pending. EKGs thus far show atrial fibrillation with an intranuclear conduction delay, slow ventricular response rate. Nonspecific ST T-wave abnormalities. LABORATORY DATA: White blood cell count is 8.25, hemoglobin 9.0 g/dL, hematocrit 29.4%, and platelet count 252,000. INR is 1.7. Sodium is 139 mmol/L, potassium 4.3 mmol/L, BUN 65 mg/dL, creatinine 2.00 mg/dL. Random glucose 67 mg/dL. ProBNP elevated at 2,333 pg/mL. Troponin I is normal at 0.029 ng/mL. Followup laboratory values are pending. I&Os negative 1,515 mL. Body weight 128.5 kg, down 1.6 kg since admission. ASSESSMENT: 1. Acute on Chronic Diastolic CHF. 2. CAD s/p CABG x 2 vessels 2012. 3. Chronic Atrial Fibrillation with slow ventricular response rate -- could signify development of AV disease. 4. Mild Aortic Stenosis. 5. Moderate concentric LVH with diastolic dysfunction. 6. Hypertension. 7. Dyslipidemia. 8. Insulin requiring Type 2 Diabetes Mellitus. 9. Chronic kidney disease. 10. Chronic obstructive pulmonary disease with both restrictive and obstructive physiology on PFTs. 11. Diagnoses as mentioned above. PLAN: 1. The patient was admitted yesterday with an acute on chronic exacerbation of Diastolic CHF. Thus far she has diuresed greater than 1.5 liters, and is symptomatically improving. She continues to have some degree of shortness of breath, dyspnea on exertion, and abdominal bloating/leg edema. 2. She remains in atrial fibrillation, but having very slow ventricular response rate, possibly some physiologic. Would agree with holding metoprolol to allow more appropriate ventricular response rate. 3. Continue holding Metoprolol because of probably inappropriately slow ventricular response rate. 4. Continue Hydralazine 50 mg t.i.d. 5. Continue long-term Coumadin. 6. Continue Aspirin 81 mg a day. 7. Continue Spironolactone 25 mg daily. 8. Continue Lasix 80 mg IV b.i.d. until she approaches an euvolemic state. Suspect that her renal function will worsen before it improves considering degree of volume overload. 9. Continue long-term Crestor 40 mg daily. 10. Echocardiogram is pending. 11. She has not had any angina pectoris or anginal equivalent symptoms. 12. Monitor I&Os and daily body weights closely. 13. Low sodium, heart healthy diet. 14. We will continue to follow. The patient was seen and examined by me in conjunction with Mr. Isaacs. History reviewed with patient. Agree with above. The patient was examined by me. Agree with exam above. Over the past few weeks she has had significant fluid retention, weight gain, and increasing dyspnea. She has had increased peripheral edema as well as increased abdominal distention. Since admission she has begun diuresing with intravenous diuretics. She she feels that her dyspnea has improved. She has no anginal complaints. Echocardiogram performed today reveals low normal overall left ventricular systolic function. Moderate concentric LVH. Moderate right ventricular dilatation and right ventricular systolic dysfunction. Severe pulmonary hypertension. Elevated central venous pressure. Moderate calcific aortic stenosis. Moderate mitral regurgitation. Moderate to severe tricuspid regurgitation. Suspect that her fluid retention is secondary to a combination of her left ventricular diastolic dysfunction as well as her elevated right heart pressures and right ventricular systolic dysfunction. The low ventricular response to atrial fibrillation could also be contributory to a decreased cardiac output. Agree with holding metoprolol. Monitor ventricular response to the atrial fibrillation off of the metoprolol. Agree with continuing with intravenous diuretics. Need to monitor renal function closely. With diuresis and increased heart rate paras cardiac output may actually improve thus increasing renal perfusion. Agree with continuing anticoagulation therapy with warfarin and anti platelet therapy with aspirin. Thank you for asking us to see this patient in Cardiology consultation. Luis Hernandez MD [facility]
[2017-09-11 11:12] LABS: HEMATOCRIT 31.2 % (37-47); MEAN CELL VOLUME 88.1 fL (80-100); MEAN CORPUSCULAR HEMOGLOBIN 26.6 pg (25-34); MEAN CORPUSCULAR HGB CONC 30.1 g/dl (32-36); MEAN PLATELET VOLUME 10.2 fL (7.4-10.4); PLATELET COUNT 198 K/uL (130-400); RED BLOOD COUNT 3.54 M/uL (4.2-5.4); WHITE BLOOD COUNT 9.97 K/uL (4.8-10.8)
[2017-09-11 11:27] LABS: INR 1.7 (0.9-1.1)
[2017-09-11 11:33] LABS: BUN/CREATININE RATIO 30.7 (10-20); CALCIUM 8.4 mg/dl (8.5-10.1); CREATININE 2.1 mg/dl (0.60-1.20); POTASSIUM 4.7 mmol/L (3.5-5.1)
--- NOTE | 2017-09-11 11:56 | ECHOCARDIOGRAM REPORT ---
*NOTICE TO RECEIVING LIBERTARIAN AGENCY This information is strictly Confidential and protected under [place] law. [place] law prohibits you from making any further disclosure of this information unless further disclosure is expressly permitted by the written consent of the person to whom it pertains or is authorized by law. A general authorization for the release of medical or other information is not sufficient for this purpose. Hospital accepts no responsibility if the information is made available to any other person, INCLUDING THE PATIENT. Interpretation Summary * Name: MERCED SESAY Study Date: 09/11/2017 08:40 AM BP: 135/52 mmHg * Patient Location: [facility] HR: 47 * : 1945 (M/d/yyyy) Gender: Female Height: 66 in * Age: 72 yrs Ethnicity: [place] Weight: 286 lb * Ordering Physician: Nay Broderick * Referring Physician: LOAN Prasad. * Performed By: Sandi Villa RCS * * Reason For Study: CHF * BSA: 2.3 m2 * Low normal overall left ventricular systolic function. * Moderate concentric left ventricular hypertrophy. * Biatrial dilatation. * Moderate right ventricular dilatation. * Moderate right ventricular systolic dysfunction. * Moderate calcific aortic stenosis. * Trace pulmonic regurgitation. * Moderate mitral regurgitation. * Moderate to severe tricuspid regurgitation. * Severe pulmonary hypertension. * Elevated central venous pressure. Procedure Details * A complete two-dimensional transthoracic echocardiogram was performed (2D, M-mode, Doppler and color flow Doppler). Left Ventricle * The left ventricle is normal in size. * There is moderate concentric left ventricular hypertrophy. * Ejection Fraction = 50-55%. * Left ventricular systolic function is low normal. * The left ventricular wall motion is normal. Right Ventricle * The right ventricle is moderately dilated. * The right ventricular systolic function is moderately reduced. Atria * The left atrium is moderately dilated. * The right atrium is mildly dilated. Mitral Valve * There is mild mitral annular calcification. * There is no mitral valve stenosis. * There is moderate mitral regurgitation. Tricuspid Valve * The tricuspid valve is normal. * There is no tricuspid stenosis. * There is moderate to severe tricuspid regurgitation. * Right ventricular systolic pressure is elevated at >60mmHg. Aortic Valve * The aortic valve is trileaflet. * The valve is calcified and has decreased opening. * Moderate valvular aortic stenosis. * Dimensionless aortic valve index 0.30 * No aortic regurgitation is present. Pulmonic Valve * The pulmonic valve is not well visualized. * The pulmonary valve is inadequately visualized, but the Doppler data is adequate for interpretation. * There is no pulmonic valvular stenosis. * Trace pulmonic valvular regurgitation. Great Vessels * The aortic root is normal size. Pericardium/Pleural * There is no pericardial effusion. Great Vessels * The inferior vena cava is moderately dilated. MMode 2D Measurements and Calculations IVSd 1.5 cm IVSs 1.5 cm LVIDd 4.8 cm LVIDs 3.5 cm LVPWd 1.4 cm LVPWs 1.6 cm IVS/LVPW 1.1 FS 26.0 % EDV(Teich) 106.4 ml ESV(Teich) 52.1 ml EF(Teich) 51.0 % EDV(cubed) 109.1 ml ESV(cubed) 44.2 ml EF(cubed) 59.5 % % IVS thick 0.56 % % LVPW thick 18.7 % LV mass(C)d 285.2 grams LV mass(C)dI 122.5 grams/m\S\2 LV mass(C)s 213.6 grams LV mass(C)sI 91.7 grams/m\S\2 SV(Teich) 54.3 ml SI(Teich) 23.3 ml/m\S\2 SV(cubed) 64.9 ml SI(cubed) 27.9 ml/m\S\2 Ao root diam 2.8 cm Ao root area 6.1 cm\S\2 LA dimension 4.9 cm LA/Ao 1.8 Doppler Measurements and Calculations MV E max alma 162.3 cm/sec MV P1/2t max alma 203.6 cm/sec MV P1/2t 75.2 msec MVA(P1/2t) 2.9 cm\S\2 MV dec slope 792.9 cm/sec\S\2 MV dec time 0.24 sec Ao V2 max 182.7 cm/sec Ao max PG 13.4 mmHg Ao max PG (full) 12.2 mmHg LV V1 max PG 1.2 mmHg LV V1 max 54.1 cm/sec MR max alma 566.8 cm/sec MR max PG 128.5 mmHg PA V2 max 87.1 cm/sec PA max PG 3.0 mmHg PI max alma 166.5 cm/sec PI max PG 11.1 mmHg PI dec slope 151.7 cm/sec\S\2 PI P1/2t 321.5 msec TR max alma 375.6 cm/sec
--- NOTE | 2017-09-11 15:48 | Hospitalist Progress Note ---
Hospitalist Progress Note Date of Service Sep 11, 2017. (Nishi Parr ., KENNETHC) Subjective Pt evaluation today including: conversation w/ patient, physical exam, chart review, lab review, review of inpatient medication list Pain: None PO Intake: Tolerating PO diet Voiding: no voiding problems The patient reports feeling well. She states that she is no longer having shortness of breath at rest, but she does still complain of dyspnea on exertion , as well as orthopnea and PND. She states that her leg swelling is improved, and her RLE is looking less red. The patient denies fevers, chills, sweats, chest pain, palpitations, claudication, cough, wheezing, shortness of breath at rest, nausea, vomiting, abdominal pain, dysuria, hematuria, urinary retention, paralysis, weakness, numbness and tingling. Additional Comments: See HPI for pertinent positives and negatives. All other systems reviewed and negative. (Nishi Parr ., THERESA-C) Objective Vital Signs Date Time Temp Pulse Resp B/P (MAP) Pulse Ox O2 Delivery O2 Flow Rate FiO2 09/11/17 15:18 36.4 48 18 132/55 (80) 94 Room Air 09/11/17 11:46 36.4 49 18 134/55 (81) 92 Room Air 09/11/17 11:45 Room Air 09/11/17 08:00 Room Air 09/11/17 07:57 36.5 44 18 135/52 (79) 95 Room Air 09/11/17 04:00 94 Nasal Cannula 2.0 09/11/17 04:00 36.5 45 20 158/74 (102) 92 Room Air 09/11/17 00:26 36.6 50 20 153/65 (94) 94 Room Air 09/11/17 00:05 94 Nasal Cannula 2.0 09/10/17 18:42 36.3 44 16 152/64 (93) 99 Nasal Cannula 2.0 09/10/17 18:10 36.5 43 20 145/112 94 09/10/17 17:43 43 20 145/112 94 Nasal Cannula 2.0 09/10/17 17:20 44 09/10/17 17:01 41 16 132/68 99 Nasal Cannula 2.0 09/10/17 16:00 99 Nasal Cannula 2.0 09/10/17 15:32 42 16 Nasal Cannula 2.0 (Nishi Parr ., THERESA-C) Physical Exam Notes: General appearance: +Morbidly obese. Well-developed, well-nourished, no apparent distress Head: Normocephalic, atraumatic Eyes: Normal inspection, PERRL, EOMI ENT: Normal ENT inspection, hearing grossly normal, pharynx normal Neck: Supple, no JVD, trachea midline Respiratory/Chest: Lungs clear to auscultation, normal breath sounds, no respiratory distress Cardiovascular: +Irregularly irregular, bradycardic. No gallop, no murmur Abdomen/GI: Normal bowel sounds, non-tender, soft Extremities/Musculoskeletal: +2+ pitting edema and erythema RLE. Per pt, erythema and edema improved from yesterday. 1+ pitting edema LLE. No calf tenderness Neurological/Psych: Alert, normal mood/affect, oriented x 3 Skin: Normal color, warm/dry, no rash (Nishi Parr, THERESA-C) Laboratory Results Last 24 Hours Test 09/10/17 21:08 09/11/17 07:39 09/11/17 10:43 09/11/17 11:28 Bedside Glucose 126 mg/dl 75 mg/dl 139 mg/dl White Blood Count 9.97 K/uL Red Blood Count 3.54 M/uL Hemoglobin 9.4 g/dL Hematocrit 31.2 % Mean Corpuscular Volume 88.1 fL Mean Corpuscular Hemoglobin 26.6 pg Mean Corpuscular Hemoglobin Concent 30.1 g/dl RDW Standard Deviation 59.7 fL RDW Coefficient of Variation 18.3 % Platelet Count 198 K/uL Mean Platelet Volume 10.2 fL Prothrombin Time 19.0 SECONDS Prothromb Time International Ratio 1.7 Sodium Level 139 mmol/L Potassium Level 4.7 mmol/L Chloride Level 104 mmol/L Carbon Dioxide Level 25 mmol/L Anion Gap 10.0 mmol/L Blood Urea Nitrogen 64 mg/dl Creatinine 2.10 mg/dl Est Creatinine Clear Calc Drug Dose 32.8 ml/min Estimated GFR () 26.4 Estimated GFR (Non- 22.8 BUN/Creatinine Ratio 30.7 Random Glucose 140 mg/dl Calcium Level 8.4 mg/dl (Nishi Parr, THERESA-C) Diagnostic Results Echo: Interpretation Summary * Name: MERCED SESAY Study Date: 09/11/2017 08:40 AM BP: 135/52 mmHg * Patient Location: 286 HR: 47 * : 1945 (M/d/yyyy) Gender: Female Height: 66 in * Age: 72 yrs Ethnicity: [place] Weight: 286 lb * Ordering Physician: Nay Broderick * Referring Physician: LOAN Prasad. * Performed By: Sandi Villa RCS * * Reason For Study: CHF * BSA: 2.3 m2 * Low normal overall left ventricular systolic function. * Moderate concentric left ventricular hypertrophy. * Biatrial dilatation. * Moderate right ventricular dilatation. * Moderate right ventricular systolic dysfunction. * Moderate calcific aortic stenosis. * Trace pulmonic regurgitation. * Moderate mitral regurgitation. * Moderate to severe tricuspid regurgitation. * Severe pulmonary hypertension. * Elevated central venous pressure. Procedure Details * A complete two-dimensional transthoracic echocardiogram was performed (2D, M- mode, Doppler and color flow Doppler). Left Ventricle * The left ventricle is normal in size. * There is moderate concentric left ventricular hypertrophy. * Ejection Fraction = 50-55%. * Left ventricular systolic function is low normal. * The left ventricular wall motion is normal. Right Ventricle * The right ventricle is moderately dilated. * The right ventricular systolic function is moderately reduced. Atria * The left atrium is moderately dilated. * The right atrium is mildly dilated. Mitral Valve * There is mild mitral annular calcification. * There is no mitral valve stenosis. * There is moderate mitral regurgitation. Tricuspid Valve * The tricuspid valve is normal. * There is no tricuspid stenosis. * There is moderate to severe tricuspid regurgitation. * Right ventricular systolic pressure is elevated at >60mmHg. Aortic Valve * The aortic valve is trileaflet. * The valve is calcified and has decreased opening. * Moderate valvular aortic stenosis. * Dimensionless aortic valve index 0.30 * No aortic regurgitation is present. Pulmonic Valve * The pulmonic valve is not well visualized. * The pulmonary valve is inadequately visualized, but the Doppler data is adequate for interpretation. * There is no pulmonic valvular stenosis. * Trace pulmonic valvular regurgitation. Great Vessels * The aortic root is normal size. Pericardium/Pleural * There is no pericardial effusion. Great Vessels * The inferior vena cava is moderately dilated. (Nishi Parr ., PA-C) Assessment and Plan 72 y/o female with a history of a.fib, CAD s/p CABG, chronic diastolic CHF, chronic anemia, CKD stage III, arthritis, gout, HTN, T2DM, HLD, RLS, and GERD, who presented to the ED because of a 17 pound weight gain since Sep.01 and shortness of breath. Acute on chronic diastolic CHF exacerbation--improving - Admit to [facility] for cardiac monitoring. Pt in a-fib with slow ventricular response. HR 30s-40s overnight but asymptomatic - Echo shows LVEF of 50-55%, no wall motion abnormalities, severe pulmonary HTN - Pt diuresed over 1L yesterday - Continue IV Lasix 80 mg BID; hold PO Lasix 80 mg TID - Monitor I&Os and daily weights - Consult cardiology, appreciate recommendations: continue to hold metoprolol - Continue spironolactone 25 mg daily RLE cellulitis and edema--improving - Venous doppler negative for DVT - Continue Rocephin 1 gm IV qd. MRSA swab negative CAD, s/p CAGB, a.fib, HLD- follows w/ Dr. Hernandez - Continue ASA 81 mg daily, Crestor 40 mg daily, KCL supplement, Mag supplement - Hold Metoprolol 100 mg daily due to bradycardia - Continue Warfarin 4 mg on Tues, Fri, and 2 mg on all other days- follow PT/INR HTN--stable -Continue Hydralazine 50 mg TID T2DM- follows w/ [facility]--last HgbA1c was 6.7 on 05/10/17 - Continue Levemir 45 U BID - BSG ACHS and sliding insulin scale - Recheck HgbA1c CKD, stage III- baseline Cr. 1.6-2.0- follows w/ Dr. Roman--stable -Creatinine stable at 2.1 Chronic anemia- baseline hgb 9.0-10.0--stable -Hgb remains stable Gout -Continue Allopurinol 200 mg daily Carcinoid s/p middle lobectomy and wedge resection to right upper lobe- follows w/ Dr. Perkins DVT prophylaxis -Coumadin Code Status -Level I, FULL RESUSCITATION STATUS Dispo -From home, lives w/ - PT/OT and CM consulted (Nishi Parr ., JULIO) I examined patient. I agree with above note. I discussed plan with patient and APC. My exam did not differ from the exam done by the APC. (Mal Sorenson M.D.)
[2017-09-11] MEDS: WARFARIN SOD 4 MG TAB PO SCH (16:55)
[2017-09-11] MEDS: ACETAMINOPHEN 325 MG TAB PO PRN (19:36)
[2017-09-11] MEDS: CEFTRIAXONE SOD INJ 1 GM in DEXTROSE 5% ADD-VANTAGE 50ML 50 ML IV SCH (20:01)
[2017-09-11] MEDS: ROPINIROLE HCL 1 MG TAB PO SCH (20:03)
[2017-09-11] MEDS ORDERED: OXYCODONE/ACETAMINOPHEN 5-325 TAB PO ONE (21:45)
[2017-09-12] VITALS (7 sets, daily range): BP systolic 127–161; BP diastolic 68–92; PULSE 45–56; TEMP 36.3–36.6; O2SAT 91–95; Ht 167.6 cm; Wt 124.8 kg
[2017-09-12] MEDS: FUROSEMIDE INJ 80 MG in SYRINGE 0 ML IV SCH ×3 (05:00→18:05)
[2017-09-12 05:51] LABS: HEMATOCRIT 29.4 % (37-47); MEAN CELL VOLUME 87.2 fL (80-100); MEAN CORPUSCULAR HEMOGLOBIN 26.4 pg (25-34); MEAN CORPUSCULAR HGB CONC 30.3 g/dl (32-36); MEAN PLATELET VOLUME 8.9 fL (7.4-10.4); PLATELET COUNT 227 K/uL (130-400); RED BLOOD COUNT 3.37 M/uL (4.2-5.4)
[2017-09-12 05:59] LABS: INR 1.8 (0.9-1.1); PROTHROMBIN TIME (PATIENT) 19.7 SECONDS (9.0-12.0)
[2017-09-12 06:21] LABS: BUN/CREATININE RATIO 31.8 (10-20); CALCIUM 8.3 mg/dl (8.5-10.1); CREATININE 2.1 mg/dl (0.60-1.20); POTASSIUM 4.5 mmol/L (3.5-5.1)
[2017-09-12] MEDS: CHOLECALCIFEROL 1000 INTER.UNIT TAB PO SCH (08:16)
[2017-09-12] MEDS: ASPIRIN 81 MG ECTAB PO SCH (08:16)
[2017-09-12] MEDS: ROSUVASTATIN CALCIUM 20 MG TAB PO SCH (08:16)
[2017-09-12] MEDS: SPIRONOLACTONE 25 MG TAB PO SCH (08:16)
[2017-09-12] MEDS: MAGNESIUM CHLORIDE 64MG DELAYED REL TAB PO SCH ×3 (08:16→20:51)
[2017-09-12] MEDS: PANTOprazole SOD 40 MG TAB PO SCH (08:16)
[2017-09-12] MEDS: POTASSIUM CHLORIDE 20 MEQ TABCR PO SCH ×4 (08:16→20:50)
[2017-09-12] MEDS: ALLOPURINOL 100 MG TAB PO SCH (08:17)
[2017-09-12] MEDS: DICLOFENAC SOD 25 MG TABEC PO SCH ×2 (08:17→20:52)
[2017-09-12] MEDS: INSULIN ASPART 100 UNITS/ML 3 ML PEN SC SCH ×4 (08:41→20:54)
[2017-09-12] MEDS: INSULIN DETEMIR FLEXPEN/FLEX TOUCH 100 UNITS/ML 3ML SC SCH ×2 (08:42→20:59)
[2017-09-12] MEDS: ACETAMINOPHEN 325 MG TAB PO PRN ×2 (09:28→16:59)
[2017-09-12] MEDS ORDERED: NURSING VERBAL MED ORDER ONE (12:15)
[2017-09-12] MEDS ORDERED: TRAMADOL HCL 50 MG TAB ONE (12:22)
[2017-09-12 13:28] LABS: ESTIMATED AVERAGE GLUCOSE 128 mg/dl; HA1C FLAG Normal (Normal)
[2017-09-12] MEDS: WARFARIN SOD 4 MG TAB PO SCH (16:22)
[2017-09-12] MEDS: CEFTRIAXONE SOD INJ 1 GM in DEXTROSE 5% ADD-VANTAGE 50ML 50 ML IV SCH (19:58)
[2017-09-12] MEDS: ROPINIROLE HCL 1 MG TAB PO SCH (20:51)
--- NOTE | 2017-09-12 22:28 | Progress Note ---
Subjective Date of Service: Sep 12, 2017. Subjective The patient reports feeling well. She states that she is no longer having shortness of breath at rest. She continues to have dyspnea on exertion, however, she is able to ambulate shannen than yesterday. She states that her leg swelling is improved even more. Her RLE is looking less red. The patient denies fevers, chills, sweats, chest pain, palpitations, claudication, cough, wheezing, shortness of breath at rest, nausea, vomiting, abdominal pain, dysuria, hematuria, urinary retention, paralysis, weakness, numbness and tingling. Problem List Medical Problems: (1) Anticoagulants,Lt,Current Use Status: Chronic (2) Arthritis Status: Chronic (3) Atrial fibrillation Status: Chronic (4) Benign hypertension Status: Chronic (5) Chronic Kidney Disease, Unspecified Status: Chronic (6) Diabetes mellitus Status: Chronic (7) Esophageal Reflux Status: Chronic (8) Hepatomegaly Status: Chronic (9) Hyperlipidemia Nec/Nos Status: Chronic (10) Hypoxia Status: Acute (11) Medication refill Status: Acute (12) Right knee pain Status: Acute Social History Problems: (1) History of total knee arthroplasty Status: Acute Review of Systems Constitutional: No fever, No chills Respiratory: No cough, No sputum Cardiac: + orthopnea, + PND, + edema, No chest pain Abdomen: No pain, No nausea Neurologic: No memory loss, No paralysis Psychiatric: No depression symptoms, No anhedonism Heme: No abnormal bleeding/bruising All Other Systems: Reviewed and Negative Medications Current Inpatient Medications Medications (Trade) Dose Ordered Sig/Scott Route Start Time Stop Time Status Last Admin Dose Admin Acetaminophen (Tylenol Tab) 650 mg Q4H PRN PO 09/10/17 16:45 10/10/17 16:44 09/12/17 16:59 650 MG Al Hydrox/Mg Hydrox/Simethicone (Maalox Max Susp) 15 ml Q4H PRN PO 09/10/17 16:45 10/10/17 16:44 Magnesium Hydroxide (Milk Of Magnesia Susp) 30 ml Q12H PRN PO 09/10/17 16:45 10/10/17 16:44 Ondansetron HCl (Zofran Inj) 4 mg Q6H PRN IV 09/10/17 16:45 10/10/17 16:44 Nitroglycerin (Nitrostat Tab) 0.4 mg UD PRN SL 09/10/17 16:45 10/10/17 16:44 Morphine Sulfate (MoRPHine SULFATE INJ) 2 mg Q30M PRN IV 09/10/17 16:45 09/24/17 16:44 Polyethylene (Miralax Powder Packet) 17 gm DAILY PRN PO 09/10/17 16:45 10/10/17 16:44 Allopurinol (Zyloprim Tab) 200 mg DAILY PO 09/11/17 09:00 10/11/17 08:59 09/12/17 08:17 200 MG Aspirin (Ecotrin Tab) 81 mg QAM PO 09/11/17 09:00 10/11/17 08:59 09/12/17 08:16 81 MG Cholecalciferol (Vitamin D Tab) 1,000 inter.unit QAM PO 09/11/17 09:00 10/11/17 08:59 09/12/17 08:16 1,000 INTER.UNIT Diclofenac Sodium (Voltaren Tab) 50 mg Q12 PO 09/10/17 21:00 10/10/17 20:59 09/12/17 20:52 50 MG Hydralazine HCl (Apresoline Tab) 50 mg TID PO 09/10/17 21:00 10/10/17 20:59 09/12/17 20:59 50 MG Potassium Chloride (Klor-Con Tab) 20 meq QID PO 09/10/17 21:00 10/10/17 20:59 09/12/17 20:50 20 MEQ Ropinirole HCl (Requip Tab) 2 mg HS PO 09/10/17 21:00 10/10/17 20:59 09/12/17 20:51 2 MG Rosuvastatin Calcium (Crestor Tab) 40 mg QAM PO 09/11/17 09:00 10/11/17 08:59 09/12/17 08:16 40 MG Spironolactone (Aldactone Tab) 25 mg DAILY PO 09/11/17 09:00 10/11/17 08:59 09/12/17 08:16 25 MG Warfarin Sodium (Coumadin Tab) 4 mg TuFr@1600 PO 09/10/17 20:00 10/10/17 19:59 09/10/17 21:17 4 MG Warfarin Sodium (Coumadin Tab) 2 mg SuMoWeThSa@1600 PO 09/11/17 16:00 10/11/17 15:59 09/12/17 16:22 2 MG Albuterol (Ventolin Hfa Inhaler) 2 puffs Q4 PRN INH 09/10/17 16:45 10/10/17 16:44 Insulin Detemir (Levemir Flexpen/ FlexTouch) 45 units BID SC 09/10/17 21:00 10/10/17 20:59 09/12/17 20:59 45 UNITS Magnesium Chloride (Slow-Mag Tab) 128 mg TID PO 09/10/17 21:00 10/10/17 20:59 09/12/17 20:51 128 MG Pantoprazole Sodium (Protonix Tab) 40 mg QAM PO 09/11/17 09:00 10/11/17 08:59 09/12/17 08:16 40 MG Ceftriaxone Sodium 1 gm/ Dextrose 50 ml @ 100 mls/hr Q24H IV 09/10/17 20:00 09/20/17 19:59 09/12/17 19:58 100 MLS/HR Insulin Aspart (novoLOG ASPART) SLIDING SCALE G... ACHS SC 09/10/17 21:00 10/10/17 20:59 09/12/17 17:46 4 UNITS Furosemide 80 mg/ Syringe 8 ml @ 4 mls/min BID@0500,1700 IV 09/11/17 17:00 10/10/17 18:59 09/12/17 18:05 4 MLS/MIN Objective Vital Signs Date Time Temp Pulse Resp B/P (MAP) Pulse Ox O2 Delivery O2 Flow Rate FiO2 09/12/17 20:12 56 18 161/68 (99) 94 Room Air 09/12/17 20:00 Room Air 09/12/17 15:50 Room Air 09/12/17 15:22 36.5 53 18 147/71 (96) 95 Room Air 09/12/17 11:45 Room Air 09/12/17 11:01 36.3 56 18 144/73 (96) 93 Room Air 09/12/17 07:57 94 Room Air 09/12/17 07:45 Room Air 09/12/17 07:11 36.3 56 18 127/74 (91) 94 Room Air 09/12/17 04:32 36.4 47 18 159/92 (114) 92 Room Air 09/12/17 04:00 Room Air 09/12/17 00:00 Room Air 09/11/17 23:58 36.4 47 16 155/77 (103) 92 Room Air Physical Exam Comments: General appearance: +Morbidly obese. Well-developed, well-nourished, no apparent distress Head: Normocephalic, atraumatic Eyes: Normal inspection, PERRL, EOMI ENT: Normal ENT inspection, hearing grossly normal, pharynx normal Neck: Supple, no JVD, trachea midline Respiratory/Chest: Lungs clear to auscultation, normal breath sounds, no respiratory distress Cardiovascular: +Irregularly irregular, bradycardic. No gallop, no murmur Abdomen/GI: Normal bowel sounds, non-tender, soft Extremities/Musculoskeletal: +1 pitting edema and erythema RLE. Per pt, erythema and edema improved from yesterday. no pitting edema on LLE. No calf tenderness Neurological/Psych: Alert, normal mood/affect, oriented x 3 Skin: Normal color, warm/dry, no rash Laboratory Results Last 24 Hours Test 09/12/17 05:27 09/12/17 07:27 09/12/17 11:16 09/12/17 16:34 White Blood Count 6.90 K/uL Red Blood Count 3.37 M/uL Hemoglobin 8.9 g/dL Hematocrit 29.4 % Mean Corpuscular Volume 87.2 fL Mean Corpuscular Hemoglobin 26.4 pg Mean Corpuscular Hemoglobin Concent 30.3 g/dl RDW Standard Deviation 58.9 fL RDW Coefficient of Variation 18.4 % Platelet Count 227 K/uL Mean Platelet Volume 8.9 fL Prothrombin Time 19.7 SECONDS Prothromb Time International Ratio 1.8 Sodium Level 138 mmol/L Potassium Level 4.5 mmol/L Chloride Level 105 mmol/L Carbon Dioxide Level 24 mmol/L Anion Gap 9.0 mmol/L Blood Urea Nitrogen 67 mg/dl Creatinine 2.10 mg/dl Est Creatinine Clear Calc Drug Dose 32.8 ml/min Estimated GFR () 26.4 Estimated GFR (Non- 22.8 BUN/Creatinine Ratio 31.8 Random Glucose 72 mg/dl Estimated Average Glucose 128 mg/dl Hemoglobin A1c 6.1 % Calcium Level 8.3 mg/dl Bedside Glucose 62 mg/dl 140 mg/dl 117 mg/dl Test 09/12/17 20:21 Bedside Glucose 166 mg/dl Assessment and Plan 72 y/o female with a history of a.fib, CAD s/p CABG, chronic diastolic CHF, chronic anemia, CKD stage III, arthritis, gout, HTN, T2DM, HLD, RLS, and GERD, who presented to the ED because of a 17 pound weight gain since Sep.01 and shortness of breath. Acute on chronic diastolic CHF exacerbation--improving - Pt in a-fib with slow ventricular response. HR 30s-40s overnight but asymptomatic - Echo shows LVEF of 50-55%, no wall motion abnormalities, severe pulmonary HTN - Pt negative about 1 liter - Continue IV Lasix 80 mg BID; will likely change to PO lasix tomorrow - Monitor I&Os and daily weights - No new input from cardio: continue to hold metoprolol - Continue spironolactone 25 mg daily RLE cellulitis and edema--improving - Venous doppler negative for DVT - Continue Rocephin 1 gm IV qd. MRSA swab negative CAD, s/p CAGB, a.fib, HLD- follows w/ Dr. Hernandez - Continue ASA 81 mg daily, Crestor 40 mg daily, KCL supplement, Mag supplement - Hold Metoprolol 100 mg daily due to bradycardia - Continue Warfarin 4 mg on Tu, Fri, and 2 mg on all other days- follow PT/INR HTN--stable -Continue Hydralazine 50 mg TID T2DM- follows w/ [facility]--last HgbA1c was 6.7 on 05/10/17 - Continue Levemir 45 U BID - BSG ACHS and sliding insulin scale - HBA1C was 6.1 CKD, stage III- baseline Cr. 1.6-2.0- follows w/ Dr. Roman--stable -Creatinine stable at 2.1. no change from yesterday Chronic anemia- baseline hgb 9.0-10.0--stable -Hgb remains stable Gout -Continue Allopurinol 200 mg daily Carcinoid s/p middle lobectomy and wedge resection to right upper lobe- follows w/ Dr. Perkins DVT prophylaxis -Coumadin Code Status -Level I, FULL RESUSCITATION STATUS Continued [facility] stay due to: ambulation difficulties Discharge planning: uncertain, other
[2017-09-13] VITALS (7 sets, daily range): BP systolic 140–149; BP diastolic 58–80; PULSE 51–61; TEMP 36.4–36.9; O2SAT 90–97
[2017-09-13] MEDS: FUROSEMIDE INJ 80 MG in SYRINGE 0 ML IV SCH ×3 (05:00→16:21)
[2017-09-13 06:15] LABS: HEMATOCRIT 30.1 % (37-47); MEAN CELL VOLUME 87.2 fL (80-100); MEAN CORPUSCULAR HEMOGLOBIN 26.4 pg (25-34); MEAN CORPUSCULAR HGB CONC 30.2 g/dl (32-36); MEAN PLATELET VOLUME 8.7 fL (7.4-10.4); PLATELET COUNT 232 K/uL (130-400); RED BLOOD COUNT 3.45 M/uL (4.2-5.4); WHITE BLOOD COUNT 8.28 K/uL (4.8-10.8)
[2017-09-13 06:28] LABS: INR 1.9 (0.9-1.1)
[2017-09-13 06:47] LABS: BUN/CREATININE RATIO 28.3 (10-20); CALCIUM 8.5 mg/dl (8.5-10.1); CREATININE 2.4 mg/dl (0.60-1.20); POTASSIUM 4.8 mmol/L (3.5-5.1)
[2017-09-13] MEDS: CHOLECALCIFEROL 1000 INTER.UNIT TAB PO SCH (08:09)
[2017-09-13] MEDS: POTASSIUM CHLORIDE 20 MEQ TABCR PO SCH ×4 (08:09→20:28)
[2017-09-13] MEDS: ASPIRIN 81 MG ECTAB PO SCH (08:09)
[2017-09-13] MEDS: ROSUVASTATIN CALCIUM 20 MG TAB PO SCH (08:09)
[2017-09-13] MEDS: SPIRONOLACTONE 25 MG TAB PO SCH (08:09)
[2017-09-13] MEDS: MAGNESIUM CHLORIDE 64MG DELAYED REL TAB PO SCH ×3 (08:09→20:27)
[2017-09-13] MEDS: PANTOprazole SOD 40 MG TAB PO SCH (08:09)
[2017-09-13] MEDS: ALLOPURINOL 100 MG TAB PO SCH (08:10)
[2017-09-13] MEDS: DICLOFENAC SOD 25 MG TABEC PO SCH ×2 (08:10→08:16)
[2017-09-13] MEDS: INSULIN ASPART 100 UNITS/ML 3 ML PEN SC SCH ×4 (08:12→20:31)
[2017-09-13] MEDS: INSULIN DETEMIR FLEXPEN/FLEX TOUCH 100 UNITS/ML 3ML SC SCH ×2 (08:13→20:31)
--- NOTE | 2017-09-13 09:10 | CARDIOLOGY PROGRESS NOTE ---
DATE: 09/13/2017 HISTORY OF PRESENT ILLNESS: The patient was seen by me this morning in the telemetry unit room. She was first seen by me and Mr. Xavi Isaacs on 09/11/2017. On 09/12/2017, I was not in the hospital. On reviewing the patient's medication list this morning, it was noted that she is on diclofenac. The patient states that she was placed on this approximately 2 weeks ago. Of note is that since she was started on it, she began to develop fluid retention and increased dyspnea. The diclofenac was given for back pain. The patient states that since admission, she has had a slight decrease in her peripheral edema and abdominal distention. She still has dyspnea walking down the cha. This is worse than her baseline. No dyspnea at rest. No orthopnea or PND overnight. No palpitations, lightheadedness, syncope or chest pain. No leg pain. No abdominal pain or nausea. CURRENT MEDICATIONS: As of this morning, she has been on diclofenac 50 mg q. 12 hours. Other medications include furosemide 80 mg IV b.i.d., warfarin 2 mg Sundays, Mondays, Wednesdays, and Saturdays, allopurinol 200 mg daily, aspirin 81 mg daily, vitamin D 1000 units daily, rosuvastatin 40 mg daily, spironolactone 25 mg daily, pantoprazole 40 mg daily, hydralazine 50 mg t.i.d., potassium 20 mEq q.i.d., ropinirole 2 mg at bedtime, detemir insulin 45 units subcu b.i.d., magnesium chloride 128 mg t.i.d., NovoLog sliding scale insulin, warfarin 4 mg on Tuesdays and Fridays, ceftriaxone 1 gram IV q. 24 hours and several p.r.n. medications. ALLERGIES AND ADVERSE DRUG REACTIONS: On admission, no known drug allergies or adverse drug reactions. WOULD LIST NONSTEROIDAL ANTI-INFLAMMATORY DRUGS NOW ADVERSE DRUG REACTION. Monitor reviewed by me. Atrial fibrillation with slow ventricular response. Ventricular rates generally in the 50s to low 60s. Intake and output yesterday 1820/4300. Today's weight 128.3 kg. Admission weight was 130.1 kg. PHYSICAL EXAMINATION: GENERAL: Shows her to be in no distress. She is sitting in a chair by her bedside. VITAL SIGNS: This morning oral temperature 36.4, pulse 51, blood pressure 140/63, pulse oximetry on room air 90%. At 4 a.m., her pulse oximetry on room air was 97%. NECK: No jugular venous distention sitting upright. LUNGS: Normal respiratory effort. Clear. No rales or wheezes. HEART: Irregularly irregular. Decreased rate. 2/6 systolic murmur second intercostal space and left sternal border. No diastolic murmur or rub. ABDOMEN: Soft. Nontender. No palpable masses or organomegaly. No bruits. EXTREMITIES: 2+ pretibial edema bilaterally. NEUROLOGIC: Alert and oriented x3. Motor grossly intact. PSYCHIATRIC: Affect is normal. LABORATORY DATA: This morning hemoglobin 9.1, hematocrit 30.1, platelet count 232. INR today 1.9. Metabolic profile -- sodium 137, potassium 4.8, chloride 104, carbon dioxide 24, BUN 68, creatinine 2.40, random glucose 93. Echocardiogram 09/11/2017 with low normal overall LV systolic function, moderate concentric LVH, biatrial dilatation, moderate right ventricular systolic dysfunction, moderate calcific aortic stenosis, trace pulmonic regurgitation, moderate mitral regurgitation, moderate to severe tricuspid regurgitation, severe pulmonary hypertension, elevated central venous pressure. ASSESSMENT: 1. Fluid retention. This is in the setting of low normal left ventricular systolic function, left ventricular diastolic dysfunction and right ventricular systolic dysfunction. She also has severe pulmonary hypertension. Of note is that the patient has been on a nonsteroidal anti-inflammatory drug for 2 weeks. Since starting on diclofenac, her fluid retention started. Suspect that the nonsteroidal is a major contributing factor to her fluid retention. 2. No evidence of pulmonary vascular congestion on exam. 3. Chronic atrial fibrillation. Slow ventricular response. Cannot exclude edema in her atrioventricular node. 4. Chronic kidney disease. BUN and creatinine are elevated since admission. They were elevated at the time of admission. The nonsteroidal would certainly contribute to worsening of her renal function by decreasing renal perfusion. She is also receiving intravenous diuretics at this time which could worsen her renal function. 5. Blood pressure good despite slow ventricular response. Her metoprolol was held at the time of admission. RECOMMENDATIONS AND PLAN: 1. Discontinue diclofenac. It has been done by me. 2. Would avoid administration of nonsteroidal anti-inflammatory drugs in her in the future. 3. Continue intravenous diuretics today. 4. If her renal function remains relatively stable by tomorrow and if she is stable, would consider discharge home. She does have a followup appointment already scheduled with me on 09/16/2017. 5. Continue to hold beta blockers at this time. If her ventricular response improves and increases, we will consider restarting low-dose beta jody in the future.
[2017-09-13] MEDS ORDERED: TRAMADOL HCL 50 MG TAB PO PRN (12:45)
--- NOTE | 2017-09-13 12:47 | Hospitalist Progress Note ---
Hospitalist Progress Note Date of Service Sep 13, 2017. Subjective Pt evaluation today including: conversation w/ patient, physical exam, chart review, lab review, review of inpatient medication list The patient reports feeling better. She still has some dyspnea on exertion but states that this is improving. She denies any shortness of breath at rest. She still has some redness and swelling in her right lower extremity, but this is also improving. The patient denies fevers, chills, sweats, chest pain, palpitations, claudication, cough, wheezing, shortness of breath at rest, nausea , vomiting, abdominal pain, dysuria, hematuria, urinary retention, paralysis, weakness, numbness and tingling. Additional Comments: See HPI for pertinent positives and negatives. All other systems reviewed and negative. Objective Vital Signs Date Time Temp Pulse Resp B/P (MAP) Pulse Ox O2 Delivery O2 Flow Rate FiO2 09/13/17 12:10 36.4 53 18 146/62 (90) 96 Room Air 09/13/17 11:45 Room Air 09/13/17 08:09 36.4 51 18 140/63 (88) 90 Room Air 09/13/17 07:45 Room Air 09/13/17 04:00 36.6 54 18 142/61 (88) 97 Room Air 09/13/17 04:00 Room Air 09/13/17 00:00 Room Air 09/12/17 23:44 36.6 45 18 145/74 (97) 91 Room Air 09/12/17 20:12 56 18 161/68 (99) 94 Room Air 09/12/17 20:00 Room Air 09/12/17 15:50 Room Air 09/12/17 15:22 36.5 53 18 147/71 (96) 95 Room Air Physical Exam Notes: General appearance: +Morbidly obese. Well-developed, well-nourished, no apparent distress Head: Normocephalic, atraumatic Eyes: Normal inspection, PERRL, EOMI ENT: Normal ENT inspection, hearing grossly normal, pharynx normal Neck: Supple, no JVD, trachea midline Respiratory/Chest: Lungs clear to auscultation, normal breath sounds, no respiratory distress Cardiovascular: +Irregularly irregular, bradycardic. No gallop, no murmur Abdomen/GI: Normal bowel sounds, non-tender, soft Extremities/Musculoskeletal: +2+ pitting edema and erythema RLE. Erythema improving. 1+ pitting edema LLE. No calf tenderness Neurological/Psych: Alert, normal mood/affect, oriented x 3 Skin: Normal color, warm/dry, no rash Laboratory Results Last 24 Hours Test 09/12/17 16:34 09/12/17 20:21 09/13/17 05:42 09/13/17 07:33 Bedside Glucose 117 mg/dl 166 mg/dl 93 mg/dl White Blood Count 8.28 K/uL Red Blood Count 3.45 M/uL Hemoglobin 9.1 g/dL Hematocrit 30.1 % Mean Corpuscular Volume 87.2 fL Mean Corpuscular Hemoglobin 26.4 pg Mean Corpuscular Hemoglobin Concent 30.2 g/dl RDW Standard Deviation 59.1 fL RDW Coefficient of Variation 18.4 % Platelet Count 232 K/uL Mean Platelet Volume 8.7 fL Prothrombin Time 21.0 SECONDS Prothromb Time International Ratio 1.9 Sodium Level 137 mmol/L Potassium Level 4.8 mmol/L Chloride Level 104 mmol/L Carbon Dioxide Level 24 mmol/L Anion Gap 9.0 mmol/L Blood Urea Nitrogen 68 mg/dl Creatinine 2.40 mg/dl Est Creatinine Clear Calc Drug Dose 28.7 ml/min Estimated GFR () 22.5 Estimated GFR (Non- 19.4 BUN/Creatinine Ratio 28.3 Random Glucose 93 mg/dl Calcium Level 8.5 mg/dl Test 09/13/17 11:47 Bedside Glucose 98 mg/dl Assessment and Plan 72 y/o female with a history of a.fib, CAD s/p CABG, chronic diastolic CHF, chronic anemia, CKD stage III, arthritis, gout, HTN, T2DM, HLD, RLS, and GERD, who presented to the ED because of a 17 pound weight gain since Sep.01 and shortness of breath. Acute on chronic diastolic CHF exacerbation--improving - Admit to [facility] for cardiac monitoring. Pt still in a-fib with slow ventricular response. HR 40s-50s - Echo shows LVEF of 50-55%, no wall motion abnormalities, severe pulmonary HTN - UO 4300 cc, net balance -2480 cc 09/12 - Continue IV Lasix 80 mg BID; hold PO Lasix 80 mg TID - Monitor I&Os and daily weights - Consult cardiology, appreciate recommendations: D/C diclofenac and avoid NSAIDs as these can worsen heart failure. Would observe for one more day after stopping diclofenac and continue IV diuresis. Continue to hold metoprolol - Continue spironolactone 25 mg daily RLE cellulitis and edema--improving - Venous doppler negative for DVT - D/C Rocephin - Start Keflex 500 mg PO BID. Day #3 of abx - MRSA swab negative CAD, s/p CAGB, a.fib, HLD- follows w/ Dr. Hernandez - Continue ASA 81 mg daily, Crestor 40 mg daily, KCL supplement, Mag supplement - Hold Metoprolol 100 mg daily due to bradycardia - Continue Warfarin 4 mg on , Fri, and 2 mg on all other days- follow PT/INR HTN--stable -Continue Hydralazine 50 mg TID T2DM- follows w/ Coty Larson--last HgbA1c was 6.7 on 05/10/17 - Continue Levemir 45 U BID - BSG ACHS and sliding insulin scale - HgbA1c 6.1 on 09/12 SRINI on CKD, stage III- baseline Cr. 1.6-2.0- follows w/ Dr. Roman -Creatinine 2.4 on 09/13 -Continue IV Lasix per cardio, continue to monitor creatinine Chronic back pain -D/C diclofenac -Start tramadol 25 mg PO q6h prn pain Chronic anemia- baseline hgb 9.0-10.0--stable -Hgb remains stable Gout -Continue Allopurinol 200 mg daily Carcinoid s/p middle lobectomy and wedge resection to right upper lobe- follows w/ Dr. Perkins DVT prophylaxis -Coumadin Code Status -Level I, FULL RESUSCITATION STATUS Dispo -From home, lives w/ - PT/OT and CM consulted -PT recommends return home
[2017-09-13] MEDS: ACETAMINOPHEN 325 MG TAB PO PRN (13:59)
[2017-09-13] MEDS: WARFARIN SOD 4 MG TAB PO SCH (16:20)
[2017-09-13] MEDS: CEPHALEXIN MONOHYDRATE 500 MG CAP PO SCH (20:28)
[2017-09-13] MEDS: ROPINIROLE HCL 1 MG TAB PO SCH (20:28)
[2017-09-14 00:07] VITALS: O2SAT 93
[2017-09-14 04:00] VITALS: BP 145/57; PULSE 58; TEMP 36.9; O2SAT 93
[2017-09-14] MEDS: FUROSEMIDE INJ 80 MG in SYRINGE 0 ML IV SCH (05:28)
[2017-09-14 05:55] LABS: HEMATOCRIT 30.3 % (37-47); MEAN CELL VOLUME 86.6 fL (80-100); MEAN PLATELET VOLUME 8.5 fL (7.4-10.4); PLATELET COUNT 247 K/uL (130-400)
[2017-09-14 06:08] LABS: INR 1.8 (0.9-1.1); PROTHROMBIN TIME (PATIENT) 19.3 SECONDS (9.0-12.0)
[2017-09-14 06:37] LABS: BUN/CREATININE RATIO 30.1 (10-20); CALCIUM 8.9 mg/dl (8.5-10.1); CREATININE 2.1 mg/dl (0.60-1.20); POTASSIUM 4.2 mmol/L (3.5-5.1)
[2017-09-14 07:09] VITALS: BP 149/52; PULSE 59; TEMP 36.4; O2SAT 95
[2017-09-14] MEDS: ROSUVASTATIN CALCIUM 20 MG TAB PO SCH (08:41)
[2017-09-14] MEDS: MAGNESIUM CHLORIDE 64MG DELAYED REL TAB PO SCH (08:41)
[2017-09-14] MEDS: PANTOprazole SOD 40 MG TAB PO SCH (08:42)
[2017-09-14] MEDS: SPIRONOLACTONE 25 MG TAB PO SCH (08:42)
[2017-09-14] MEDS: CEPHALEXIN MONOHYDRATE 500 MG CAP PO SCH (08:42)
[2017-09-14] MEDS: POTASSIUM CHLORIDE 20 MEQ TABCR PO SCH ×2 (08:42→12:25)
[2017-09-14] MEDS: CHOLECALCIFEROL 1000 INTER.UNIT TAB PO SCH (08:43)
[2017-09-14] MEDS: ALLOPURINOL 100 MG TAB PO SCH (08:43)
[2017-09-14] MEDS: ASPIRIN 81 MG ECTAB PO SCH (08:43)
[2017-09-14] MEDS: INSULIN ASPART 100 UNITS/ML 3 ML PEN SC SCH ×2 (08:54→12:27)
[2017-09-14] MEDS: INSULIN DETEMIR FLEXPEN/FLEX TOUCH 100 UNITS/ML 3ML SC SCH (08:54)
[2017-09-14 11:26] VITALS: BP 156/73; PULSE 65; TEMP 36.5; O2SAT 95
[2017-09-14] MEDS ORDERED: KFL500 PO (12:03)
--- NOTE | 2017-09-14 12:10 | Discharge Instructions ---
Discharge Instructions Date of Service Sep 14, 2017. Admission Reason for Admission: Chf Exacerbation Discharge Discharge Diagnosis / Problem: CHF exacerbation/ RLE cellulitis Discharge Goals Goal(s): Decrease discomfort, Improve function Activity Recommendations Activity Limitations: resume your previous activity . Instructions / Follow-Up Instructions / Follow-Up F/U with Cardiology on Saturday with Dr. Hernandez (already scheduled) Monitor weight Monitor INR in 3 days F/U with PCP in 1 week Current Hospital Diet Patient's current hospital diet: AHA Diet (Heart Healthy), Diabetes Type 2 Diet Discharge Diet Recommended Diet: AHA Diet (Heart Healthy), Diabetes Type 2 Diet Fluid Restriction: 1800 ml (7 cups) Pending Studies Studies pending at discharge: no Laboratory Results Hemoglobin A1c Test 09/12/17 05:27 Range/Units Estimated Average Glucose 128 mg/dl Hemoglobin A1c 6.1 H 4.5-5.6 % Medical Emergencies . Who to Call and When: Medical Emergencies: If at any time you feel your situation is an emergency, please call 911 immediately. . Non-Emergent Contact Non-Emergency issues call your: Primary Care Provider Call Non-Emergent contact if: you have any medication questions increased weight gain (1-2 pound) per day . . "Provider Documentation" section prepared by Mal Sorenson. . VTE Core Measure Inpt VTE Proph given/why not?: Warfarin (Coumadin)
[2017-09-14 12:47] VITALS: BP 156/73; PULSE 65; TEMP 36.5; O2SAT 95
== END 2017-09-14 14:29 | disposition home or self-care (01) | DRG 292 ==
LOC: C.EDB 12:00 → C.MED 16:42 → ENRESERV 17:40
PROVIDERS: ADMIT Hospitalist; ATTEND Internal Medicine Sports Medicine
DX: I50.33 Acute on chronic diastolic (congestive) heart failure (principal); L03.115 Cellulitis of right lower limb; N17.9 Acute kidney failure, unspecified; Z83.3 Family history of diabetes mellitus; Z82.49 Family history of ischemic heart disease and other diseases of the circulatory system; Z79.82 Long term (current) use of aspirin; Z79.4 Long term (current) use of insulin; I48.91 Unspecified atrial fibrillation; I25.10 Atherosclerotic heart disease of native coronary artery without angina pectoris; Z95.1 Presence of aortocoronary bypass graft; D64.9 Anemia, unspecified; N18.3 Chronic kidney disease, stage 3 (moderate); M19.90 Unspecified osteoarthritis, unspecified site; M10.9 Gout, unspecified; I10 Essential (primary) hypertension; E11.22 Type 2 diabetes mellitus with diabetic chronic kidney disease; E78.5 Hyperlipidemia, unspecified; G25.81 Restless legs syndrome; K21.9 Gastro-esophageal reflux disease without esophagitis; R60.9 Edema, unspecified; E08.41 Diabetes mellitus due to underlying condition with diabetic mononeuropathy; J44.9 Chronic obstructive pulmonary disease, unspecified; E66.01 Morbid (severe) obesity due to excess calories

== ENCOUNTER → 2017-09-16 | Outpatient (CLI) | payer OTHER ==
[~2017-09-16] MED LIST changes: +KFL500 PO; -TPRSR/100 PO; +WARF4TAB8 PO
[2017-09-16 15:00] LABS: HEMATOCRIT 36.1 % (37-47); MEAN CELL VOLUME 87.4 fL (80-100); MEAN CORPUSCULAR HEMOGLOBIN 25.9 pg (25-34); MEAN CORPUSCULAR HGB CONC 29.6 g/dl (32-36); MEAN PLATELET VOLUME 8.6 fL (7.4-10.4); PLATELET COUNT 342 K/uL (130-400); RED BLOOD COUNT 4.13 M/uL (4.2-5.4); WHITE BLOOD COUNT 8.34 K/uL (4.8-10.8)
[2017-09-16 18:39] LABS: BLOOD UREA NITROGEN 46 mg/dl (7-18); CARBON DIOXIDE 27 mmol/L (21-32); CHLORIDE 102 mmol/L (98-107); CREATININE 1.63 mg/dl (0.60-1.20); GLUCOSE 45 mg/dl (70-99); SODIUM 137 mmol/L (136-145); TOTAL IRON BINDING CAPACITY 212 mcg/dl (250-450)
== END | disposition home or self-care (01) ==
LOC: C.LAB1850 13:43
PROVIDERS: ATTEND Internal Medicine Cardiovascular Disease
DX: I12.9 Hypertensive chronic kidney disease with stage 1 through stage 4 chronic kidney disease, or unspecified chronic kidney disease (principal); E55.9 Vitamin D deficiency, unspecified; N18.3 Chronic kidney disease, stage 3 (moderate); D64.9 Anemia, unspecified; R60.0 Localized edema

== ENCOUNTER → 2017-10-17 | Outpatient (CLI) | payer OTHER ==
[2017-10-17 15:09] LABS: BLOOD UREA NITROGEN 59 mg/dl (7-18); BUN/CREATININE RATIO 39.5 (10-20); CALCIUM 9.3 mg/dl (8.5-10.1); CARBON DIOXIDE 28 mmol/L (21-32); CHLORIDE 102 mmol/L (98-107); CREATININE 1.49 mg/dl (0.60-1.20); GLUCOSE 149 mg/dl (70-99); MAGNESIUM 2.5 mg/dl (1.8-2.4); POTASSIUM 4.3 mmol/L (3.5-5.1); SODIUM 138 mmol/L (136-145)
== END | disposition home or self-care (01) ==
LOC: C.LAB1850 13:41
PROVIDERS: ATTEND Physician Assistant Medical
DX: I50.32 Chronic diastolic (congestive) heart failure (principal)

== ENCOUNTER → 2018-01-22 | Outpatient (CLI) | payer OTHER ==
[2018-01-22 12:39] LABS: HEMATOCRIT 36.4 % (37-47); HEMOGLOBIN 11.3 g/dL (12.0-16.0); MEAN CELL VOLUME 90.3 fL (80-100); MEAN PLATELET VOLUME 9.4 fL (7.4-10.4); PLATELET COUNT 231 K/uL (130-400); RED CELL DISTRIBUTION WIDTH CV 17.5 % (11.5-14.5); RED CELL DISTRIBUTION WIDTH SD 58.2 fL (36.4-46.3); WHITE BLOOD COUNT 6.92 K/uL (4.8-10.8)
[2018-01-22 13:51] LABS: ALBUMIN 3.7 gm/dl (3.4-5.0); BLOOD UREA NITROGEN 52 mg/dl (7-18); CALCIUM 9.1 mg/dl (8.5-10.1); CARBON DIOXIDE 28 mmol/L (21-32); GLUCOSE 160 mg/dl (70-99); POTASSIUM 3.9 mmol/L (3.5-5.1); SODIUM 138 mmol/L (136-145)
[2018-01-22 13:58] LABS: PHOSPHORUS 4.1 mg/dl (2.5-4.9); TRANSFERRIN 142 mg/dl (200-360)
[2018-01-22 14:07] LABS: URIC ACID 7.8 mg/dl (2.6-7.2)
== END | disposition home or self-care (01) ==
LOC: C.LABPVFM 07:45
PROVIDERS: ATTEND Internal Medicine
DX: I12.9 Hypertensive chronic kidney disease with stage 1 through stage 4 chronic kidney disease, or unspecified chronic kidney disease (principal); E55.9 Vitamin D deficiency, unspecified; D64.9 Anemia, unspecified; N28.1 Cyst of kidney, acquired; N18.3 Chronic kidney disease, stage 3 (moderate); M10.9 Gout, unspecified; E04.2 Nontoxic multinodular goiter

== ENCOUNTER → 2018-06-25 | Outpatient (CLI) | payer OTHER ==
[~2018-06-25] MED LIST changes: +BCTCR/30 EXT; +CLIN300C2 PO; +POTA-639 PO; -POTA20TA16 PO; +ROPI5TAB PO; +SPIR25TA6 PO; -SPR25 PO
--- NOTE | 2018-06-26 07:56 | MAMMOGRAPHY REPORT ---
BILATERAL DIGITAL SCREENING MAMMOGRAM TOMOSYNTHESIS WITH CAD: 06/25/2018 CLINICAL HISTORY: Routine screening. Patient has no complaints. TECHNIQUE: The study was acquired using full field digital technology and interpreted from soft copy. Breast tomosynthesis in addition to standard 2D mammography was performed. Current study was also ev aluated with a Computer Aided Detection (CAD) system. COMPARISON: Comparison is made to exams dated: 06/20/2016 mammogram, 06/17/2015 mammogram, 03/31/2012 m ammogram, 04/20/2014 mammogram, 03/28/2011 mammogram, and 03/27/2010 mammogram - [facility] enter. BREAST COMPOSITION: There are scattered areas of fibroglandular density in both breasts. FINDINGS: There are mild vascular calcifications bilaterally. No new suspicious mass, architectural d istortion or cluster of microcalcifications is seen. IMPRESSION: ACR BI-RADS CATEGORY 1: NEGATIVE There is no mammographic evidence of malignancy. A 1 year screening mammogram is recommended.( 019) The patient will receive written notification of the results. Some breast cancers are not detected with mammography. A negative mammographic report should not gris y biopsy if a clinically suggestive mass is present. Lois Rocha M.D. ay/:06/25/2018 13:36:58 [employer] Supervisor: RT Elmo(R)(M)(BD), [facility] letter sent: Normal 1/2 BI-RADS Code: ACR BI-RADS Category 1: Negative
== END | disposition home or self-care (01) ==
LOC: C.MAMM 12:18
PROVIDERS: ATTEND Internal Medicine
DX: Z12.31 Encounter for screening mammogram for malignant neoplasm of breast (principal)

== ENCOUNTER → 2018-07-14 | Outpatient (CLI) | payer OTHER ==
[~2018-07-14] MED LIST changes: -CLBCRM30 EXT; +DOXY-300 PO; -KFL500 PO; +LEVO1TAB34 PO; -RQP/2 PO
--- NOTE | 2018-07-14 12:44 | DIAGNOSTIC IMAGING REPORT ---
L TOE(S) MIN 2 VIEWS CLINICAL HISTORY: 72 years-old Female presenting with ULCER 3RD L TOE. TECHNIQUE: Frontal, oblique, and lateral views of the left third toe were obtained. COMPARISON: None. FINDINGS: Significant osseous dissolution of the distal phalanx of the third toe. This does not grossly involve the distal interphalangeal joint. No gross evidence of osseous dissolution of the middle phalanx allowing for the presence of osteopenia. No displaced fracture or malalignment. No advanced degenerative change. Focal soft tissue swelling at the distal aspect of the left third toe. Atherosclerosis. IMPRESSION: Findings highly suspicious for osteomyelitis of the distal phalanx of the left third toe. No radiographic evidence of more proximal extension allowing for osteopenia. The report will be called/faxed according to standard departmental protocol. Electronically signed by: Jabier Avila M.D. 07/14/2018 12:43 PM Dictated Date/Time: 07/14/2018 12:41 PM
== END | disposition home or self-care (01) ==
LOC: C.RAD 10:54
PROVIDERS: ATTEND Emergency Medicine
DX: S91.105A Unspecified open wound of left lesser toe(s) without damage to nail, initial encounter (principal); X58.XXXA Exposure to other specified factors, initial encounter

== ENCOUNTER 2019-05-24 17:13 | Inpatient (IN) ==
[2019-05-24] MEDS ORDERED: SODIUM CHLORIDE 0.9% 1000ML 1,000 ML IV SCH (17:30)
[2019-05-24] MEDS ORDERED: ONDANSETRON INJ 2 MG/ML 2 ML VIAL IV STA (17:30)
[2019-05-24 17:49] LABS: Hematocrit (blood only) 31.7 % (37-47); Hemoglobin 10.1 g/dL (12.0-16.0); Mean Corpuscular Hgb Conc 31.9 g/dL (32-36); Mean Platelet Volume 9.1 fL (7.4-10.4); Platelet Count 187 K/uL (130-400); RDW Coefficient of Variation 16.5 % (11.5-14.5); RDW Standard Deviation 53.5 fL (36.4-46.3); Red Blood Count 3.56 M/uL (4.2-5.4); White Blood Count 17.43 K/uL (4.8-10.8)
--- NOTE | 2019-05-24 17:50 | XRay Report ---
XR chest 1V portable CLINICAL HISTORY: weakness COMPARISON STUDY: 11/08/2018 FINDINGS: The heart is enlarged. There is mild pulmonary vascular congestion. There are postsurgical changes of a midline sternotomy. There is no focal pulmonary consolidation. No pleural effusions are visualized.[ IMPRESSION: Cardiomegaly and mild central pulmonary vascular congestion. No evidence of acute parench ymal consolidation. Electronically signed by: Franco Lopez M.D. 05/24/2019 5:48 PM
[2019-05-24 18:01] LABS: INR 1.2 (0.9-1.1); Partial Thromboplastin Ratio 1.2; Partial Thromboplastin Time 32.6 Seconds (21.0-31.0); Prothrombin Time 12.4 Seconds (9.0-12.0)
[2019-05-24 18:13] LABS: Basophils # (auto) 0.02 K/uL (0-0.2); Basophils % (auto) 0.1 %; Eosinophils # (auto) 0.03 K/uL (0-0.5); Eosinophils % (auto) 0.2 %; Immature Granulocytes # (auto) 0.08 K/uL (0.00-0.02); Immature Granulocytes % (auto) 0.5 %; Lymphocytes # (auto) 0.81 K/uL (1.2-3.4); Lymphocytes % (auto) 4.6 %; Monocytes # (auto) 1.04 K/uL (0.11-0.59); Neutrophils # (auto) 15.45 K/uL (1.4-6.5); Neutrophils % (auto) 88.6 %; Polychromasia 1+
[2019-05-24] MEDS ORDERED: LIDOCAINE/EPINEPHRINE 1% 20 ML VIAL INFIL ONE (18:14)
[2019-05-24 18:16] LABS: Albumin Level 3.2 gm/dl (3.4-5.0); BUN Creatinine Ratio 30.6 (10-20); Creatinine Clr Calc Pharmacy 37.3 ml/min; Est GFR (African American) 33.6; Magnesium 1.9 mg/dl (1.8-2.4)
--- NOTE | 2019-05-24 18:19 | CT Scan Report ---
CT head/brain wo con CLINICAL HISTORY: Change in neurological status with new onset weakness COMPARISON STUDY: 11/08/2018 TECHNIQUE: Axial CT of the brain is performed from the vertex to the skull base. IV contrast was not administered for this examination. A dose lowering technique was utilized adhering to the principles of ALARA. CT DOSE: 691.05 mGy.cm FINDINGS: There is a zacarias 7 mm dural based calcification in the left inferior parietal region. There is no C T evidence of acute cortical infarction. There is no evidence of midline shift. There is no acute he morrhage. No calvarial fractures are visualized. There are patchy white matter hypodensities likely on a small vessel basis. 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 There is no evidence of acute sinusitis IMPRESSION: No acute intracranial findings Electronically signed by: Franco Lopez M.D. 05/24/2019 6:18 PM
[2019-05-24 18:27] LABS: Albumin Globulin Ratio 0.7 (0.9-2); Bilirubin,Total 1.8 mg/dl (0.2-1); Globulin 4.3 gm/dl (2.5-4.0); Total Protein 7.5 gm/dl (6.4-8.2); Troponin I 0.045 ng/ml (0-0.045)
--- NOTE | 2019-05-24 18:32 | CT Scan Report ---
CT SCAN OF THE ABDOMEN AND PELVIS WITHOUT CONTRAST CLINICAL HISTORY: vomiting COMPARISON STUDY: November 2018 TECHNIQUE: CT scan of the abdomen and pelvis was performed from the lung bases to the proximal femurs . Images are reviewed in the axial, sagittal, and coronal planes. IV contrast was not administered fo r this examination. A dose lowering technique was utilized adhering to the principles of ALARA. CT DOSE: 1505.85 mGy.cm FINDINGS: Lower chest: The heart is enlarged. There is no pericardial effusion. There are no pleural effusions. There are multiple bilateral point nodules the largest of which measures 1 cm. Liver: There is mild hepatic steatosis. No focal masses are visualized. Gallbladder: Surgically absent Spleen: The spleen is mildly enlarged measuring 12.5 cm. Pancreas: Unremarkable. Adrenal glands: There are 2 left adrenal nodules, similar to the preceding study. Kidneys: There are bilateral renal calcifications. While many of the calcifications are likely vascul ar, 2 tiny right renal calculi are suspected.. There is a 44 mm left renal cyst. There is no signific ant hydronephrosis. No ureteral or bladder calculi are visualized. Bowel: There are no transition zones indicate bowel obstruction. There is no evidence of acute divert iculitis. By history the appendix is surgically absent. Peritoneum: There is no intraperitoneal free air or abdominal ascites. Vasculature: The abdominal aorta is normal in course and caliber. Atheromatous calcifications are pre sent within the aorta and iliac vessels. Adenopathy: None. Pelvic viscera: The uterus appears surgically absent. Skeletal structures: No destructive osseous lesions are seen. IMPRESSION: 1. Hepatic steatosis and mild hepatosplenomegaly 2. No evidence of bowel obstruction. No evidence of free air 3. No acute inflammatory changes 4. Multiple pulmonary nodules similar to the prior study. Electronically signed by: Franco Lopez M.D. 05/24/2019 6:29 PM
[2019-05-24] MEDS ORDERED: cefTRIAXone SODIUM 1,000 MG/50 ML BAG IV STA (18:49)
[2019-05-24] MEDS ORDERED: metroNIDAZOLE 500 MG/100 ML BAG IV STA (18:49)
--- NOTE | 2019-05-24 19:01 | Emergency Department Note ---
Entered by Negra Ding acting as a scribe for History of Present Illness General Chief complaint: Nausea Stated complaint: FELL AND HIT HEAD,FEVER,NO APETITE Time Seen by Provider: 05/24/19 17:22 Source: patient Mode of arrival: ambulatory Limitations: no limitations History of Present Illness Provider complaint: weakness Onset (ago): hour(s) (this am) Location: lower extremity Pain Consistency: + other (episode) Quality: + other (weakness) Associated symptoms: + denies other symptoms, + cough and + nausea/vomiting; no chest pain, no headaches and no shortness of breath The patient is a 73 year old female who presents to the Emergency Room with complaints of an episode of weakness that occurred this morning. The patient reports that both her legs just keep going down. She states that she also had an episode of nausea and vomiting. She notes that she has a history of spinal stenosis and lumbar radiculopathy but denies any back pain today. She reports that she has had similar episodes in the past and that she does follow-up with physical therapy. She states that she has been eating and drinking baseline. She denies doing nay strenuous activities and explains she was at a picnic earlier today. She reports that she has a mild cough but denies any chest pain, shortnes s of breath, abdominal pain, or headaches. She states that she has a history of diabetes, hypertension and a-fib. Home Medications Home Medications Medication Instructions Recorded Confirmed Type albuterol sulfate HFA 90 1 - 2 puffs INH Q4H PRN gm 07/30/18 05/24/19 History mcg/actuation aerosol inhaler allopurinol 100 mg tablet 200 mg PO QAM tab 07/30/18 05/24/19 History furosemide 80 mg tablet 120 mg PO BID tab 07/30/18 05/24/19 History hydralazine 50 mg tablet 50 mg PO TID 07/30/18 05/24/19 History nitroglycerin 0.4 mg sublingual 0.4 mg SL UD PRN tab 07/30/18 05/24/19 History tablet ropinirole 5 mg tablet 5 mg PO BID tab 07/30/18 05/24/19 History rosuvastatin 40 mg tablet 40 mg PO QAM tab 07/30/18 05/24/19 History spironolactone 25 mg tablet 25 mg PO QAM tab 07/30/18 05/24/19 History cholecalciferol (vitamin D3) 2,000 unit PO QAM 10/13/18 05/24/19 History [Vitamin D3] metoprolol succinate 50 mg PO QAM 10/13/18 05/24/19 History potassium chloride 20 meq PO TID 10/13/18 05/24/19 History Levemir U-100 Insulin 30 units SUBCUT BID 11/08/18 05/24/19 History Novolin N NPH U-100 Insulin 10 units SUBCUT HS 11/08/18 05/24/19 History Novolog U-100 Insulin aspart 25 unit SUBCUT QAM 11/08/18 05/24/19 History apixaban 5 mg tablet 5 mg PO BID 11/21/18 05/24/19 History acetaminophen [Tylenol Extra 500 mg PO Q6H PRN 05/24/19 05/24/19 History Strength] amitriptyline 50 mg PO HS 05/24/19 05/24/19 History ferrous sulfate [iron] 325 mg PO QAM 05/24/19 05/24/19 History insulin aspart U-100 [Novolog 20 unit SUBCUT BID 05/24/19 05/24/19 History U-100 Insulin aspart] magnesium chloride 64 mg PO TID 05/24/19 05/24/19 History Allergies Allergy/AdvReac Type Severity Reaction Status Date / Time NSAIDS (Non-Steroidal Allergy Unknown UNK? Verified 05/24/19 17:50 Anti-Inflamma DENIES SOB. capsaicin AdvReac Severe SHORTNESS Verified 05/24/19 17:50 OF BREATH diclofenac AdvReac Severe SHORTNESS Verified 05/24/19 17:50 OF BREATH Diclopak AdvReac Severe SHORTNESS Verified 07/24/18 10:57 OF BREATH Past Med/Surg History Medical History Chronic atrial fibrillation (Chronic) Abscess of right genital labia (Acute) CHF (congestive heart failure) (Chronic) CAD (coronary artery disease) (Chronic) Diabetes mellitus (Chronic) Lumbar spinal stenosis (Chronic) Severe at L4-5 Chronic obstructive pulmonary disease (Chronic) Myocardial Infarction (Chronic) 2012 Diabetic foot ulcer associated with type 2 diabetes mellitus (Acute) Status post amputation of toe of left foot (Acute) Acquired hammer toe of right foot (Acute) Callus (Acute) Type 2 diabetes mellitus with diabetic neuropathy (Chronic) Hallux valgus (acquired), left foot (Chronic) Acquired hallux valgus of right foot (Chronic) Acquired claw toe of left foot (Chronic) Anemia (Resolved) Neuropathic ulcer of toe of right foot (Acute) 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 CORTES Chronic kidney disease FOLLOWS W/ DR. SHAY Clostridium difficile infection DX [facility] 11/2018 - TREATED - REPORTS CONTINUED DIARRHEA - STOOL SPECIMEN PROVIDED TO PCP OFFICE 01/12/19. RESULTS PENDING Diabetes mellitus, type 2 IDDM Fatty liver Gout History of hypotension Lung cancer S/P SURGERY Osteoarthritis Restless leg syndrome Sleep apnea CPAP Syncope Transient ischemic attack (TIA) 2005 Surgical History Hx of CABG (Resolved) 2012 - - [place] - [place] - 2 VESSELS - FOLLOWS W/ DR. CORTES History of bilateral knee replacement (Resolved) H/O: hysterectomy (Resolved) History of appendectomy (Resolved) History of amputation LEFT 3RD TOE History of appendectomy History of bronchoscopy History of cardiac cath 2012 [facility] - CT - NO STENTS/ANGIOPLASTY -- > CABG - FOLLOWS W/ DR. CORTES History of cholecystectomy History of colonoscopy 11/2018 [facility] History of esophagogastroduodenoscopy (EGD) 11/2018 [facility] History of hysterectomy with oophorectomy History of lobectomy of lung RML History of surgery VATS PROCEDURE History of total knee replacement BL Family History Daughter Family history of diabetes mellitus Social History Preferred Language: Afghan Communication Ability: Effective Visual Impairment: No Limitations Hearing Ability: Normal Beliefs That Will Affect Care: None marital status: Current Living Situation: Spouse Feels Safe at Home: Yes Smoking Status: Former smoker Tobacco Type: cigarettes Cigarettes Per Day: 10 Second Hand Exposure: No Hx Alcohol Use: No Hx Substance Use: No Review of Systems See HPI for pertinent positives & negatives. and A total of 10 systems reviewed and were otherwise negative Physical Exam Vital Signs Vital Signs - 24 hr 05/24/19 19:01 Pulse Rate [Left Finger] 87 Respiratory Rate 22 Blood Pressure [Left Arm] 136/67 Blood Pressure Mean [Left Arm] 90 Pulse Oximetry 93 Oxygen Delivery Method Room Air GENERAL: Patient is awake, alert, and in no acute distress.Patient is resting comfortably and showing no signs of anxiety EYES: The conjunctivae are clear. The pupils are round and reactive. EARS, NOSE, MOUTH AND THROAT: The nose is without any evidence of any deformity. Mucous membranes are moist.Tongue is midline NECK: The neck is nontender and supple. RESPIRATORY: Normal respiratory effort is noted. There is no evidence of wh eezing rhonchi or rales to auscultation. CARDIOVASCULAR: Irregular rhythm was noted to auscultation. There were no murmurs rubs or gallops noted. GASTROINTESTINAL: The abdomen is soft. Bowel sounds are present in all quadrants. Abdomen is nontender. MUSCULOSKELETAL/EXTREMITIES: There is no evidence of gross deformity. Full range of motion is noted in the hips and shoulders. SKIN: There is no obvious evidence of any rash. There are no petechiae, pallor or cyanosis noted. Pedal edema bilaterally. Skin is warm and dry. NEUROLOGIC: Patient is awake alert and oriented x3. No facial drift or pronator drift. Speech is clear. Patient was able to hold up legs for longer than 5 seconds. Procedures Abscess I/D Site: other (labia) Side (if applicable): right Local Anesthetic: lidocaine 1% and with epi Amount of anesthesia used (mL): 3 Technique: incised with #11 blade Amount of fluid expressed (mL): 1 Irrigation: No Packing used?: none Course 1727: Past medical records reviewed. The patient was evaluated in room C3. A complete history and physical examination was performed. 1841: Abscess I&D perfromed. 1857: I reviewed the patient's case with Dr. Doss - [facility] Hospitalist. He will evaluate the patient for further management. Administered Medications Allopurinol (Zyloprim) 200 mg PO QAM [facility] Stop: 06/24/19 08:59 Last Admin: 05/25/19 08:20 Dose: 200 mg Documented by: [id number] Amitriptyline HCl (Elavil) 50 mg PO HS [facility] Stop: 06/23/19 20:59 Last Admin: 05/24/19 21:42 Dose: 50 mg Documented by: [id number] Ferrous Sulfate (Feosol) 325 mg PO QDB [facility] Stop: 06/24/19 07:29 Last Admin: 06/24/19 08:21 Dose: 325 mg Documented by: [id number] Furosemide (Lasix) 120 mg PO BID17 [facility] Stop: 06/24/19 08:59 Last Admin: 05/25/19 16:43 Dose: 120 mg Documented by: [id number] Admin: 05/25/19 08:21 Dose: 120 mg Documented by: [id number] Hydralazine HCl (Apresoline) 50 mg PO TID [facility] Stop: 06/23/19 20:59 Last Admin: 05/25/19 13:14 Dose: 50 mg Documented by: [id number] Admin: 05/25/19 08:20 Dose: 50 mg Documented by: [id number] Admin: 05/24/19 21:42 Dose: 50 mg Documented by: [id number] Ceftriaxone Sodium 2,000 mg/ (Dextrose) 70 mls @ 100 mls/hr IV DAILY [facility]; Protocol Stop: 06/04/19 08:59 Last Infusion: 05/25/19 08:58 Dose: 0 mls/hr Documented by: [id number] Admin: 05/25/19 08:16 Dose: 100 mls/hr Documented by: [id number] Insulin Aspart (Novolog Flexpen) 0 units SC ACHS [facility] Stop: 06/23/19 21:59 Last Admin: 05/25/19 16:43 Dose: Not Given Documented by: [id number] Cosigned by: [id number] Admin: 05/25/19 12:19 Dose: 2 units Documented by: [id number] Cosigned by: [id number] Admin: 05/25/19 08:19 Dose: Not Given Documented by: [id number] Cosigned by: [id number] Admin: 05/24/19 22:29 Dose: 1 units Documented by: [id number] Cosigned by: [id number] Insulin Detemir (Levemir Flextouch) 30 units SC BID [facility] Stop: 06/23/19 20:59 Last Admin: 05/25/19 08:18 Dose: 30 units Documented by: [id number] Cosigned by: [id number] Admin: 05/24/19 21:43 Dose: 30 units Documented by: [id number] Cosigned by: [id number] Insulin Human NPH (Novolin N Nph) 10 units SC HS [facility] Stop: 06/23/19 20:59 Last Admin: 05/24/19 21:43 Dose: 10 units Documented by: [id number] Cosigned by: [id number] Magnesium Chloride (Slow-Mag) 64 mg PO TID [facility] Stop: 06/23/19 20:59 Last Admin: 05/25/19 13:14 Dose: 64 mg Documented by: [id number] Admin: 05/25/19 08:20 Dose: 64 mg Documented by: [id number] Admin: 05/24/19 21:43 Dose: 64 mg Documented by: [id number] Metoprolol Succinate (Toprol Xl) 50 mg PO [place] Stop: 06/24/19 08:59 Last Admin: 05/25/19 08:20 Dose: 50 mg Documented by: [id number] Potassium Chloride (Klor-Con M20) 20 meq PO TID [facility] Stop: 06/23/19 20:59 Last Admin: 05/25/19 13:14 Dose: 20 meq Documented by: [id number] Admin: 05/25/19 08:21 Dose: 20 meq Documented by: [id number] Admin: 05/24/19 21:42 Dose: 20 meq Documented by: [id number] Ropinirole HCl (Requip) 5 mg PO BID [facility] Stop: 06/23/19 20:59 Last Admin: 05/25/19 08:19 Dose: 5 mg Documented by: [id number] Admin: 05/24/19 21:43 Dose: 5 mg Documented by: [id number] Rosuvastatin Calcium (Crestor) [address] [facility] Stop: 06/24/19 08:59 Last Admin: 05/25/19 08:20 Dose: 40 mg Documented by: [id number] Spironolactone (Aldactone) 25 mg PO [place] Stop: 06/24/19 08:59 Last Admin: 05/25/19 08:20 Dose: 25 mg Documented by: [id number] Vitamin D (Vitamin D3) 2,000 units PO [place] Stop: 06/24/19 08:59 Last Admin: 05/25/19 08:21 Dose: 2,000 units Documented by: [id number] Discontinued Medications Sodium Chloride (Nss 1000ml) 1,000 mls @ 999 mls/hr IV .Q1H1M [facility] Stop: 05/24/19 18:30 Last Infusion: 05/24/19 19:05 Dose: 0 mls/hr Documented by: [id number] Admin: 05/24/19 18:01 Dose: 999 mls/hr Documented by: [id number] Ceftriaxone Sodium (Rocephin) 1,000 mg in 50 mls @ 100 mls/hr IV NOW STA Stop: 05/24/19 19:18 Last Infusion: 05/24/19 20:21 Dose: 0 mls/hr Documented by: [id number] Admin: 05/24/19 19:23 Dose: 100 mls/hr Documented by: [id number] Metronidazole (Flagyl) 500 mg in 100 mls @ 100 mls/hr IV NOW STA Stop: 05/24/19 19:48 Last Infusion: 05/24/19 20:58 Dose: 0 mls/hr Documented by: [id number] Admin: 05/24/19 19:23 Dose: 100 mls/hr Documented by: [id number] Metronidazole (Flagyl) 500 mg in 100 mls @ 100 mls/hr IV Q8H [facility] Stop: 06/03/19 18:59 Last Infusion: 05/25/19 09:52 Dose: 0 mls/hr Documented by: [id number] Admin: 05/25/19 08:52 Dose: 100 mls/hr Documented by: [id number] Infusion: 05/25/19 03:08 Dose: 0 mls/hr Documented by: [id number] Admin: 05/25/19 01:57 Dose: 100 mls/hr Documented by: [id number] Lidocaine/Epinephrine (Xylocaine/Epinephrine 1%) 20 ml INFIL NOW ONE Stop: 05/24/19 18:15 Last Admin: 05/24/19 18:37 Dose: 20 ml Documented by: [id number] Ondansetron HCl (Zofran) 4 mg IV NOW STA Stop: 05/24/19 17:31 Last Admin: 05/24/19 18:01 Dose: 4 mg Documented by: [id number] Medical Decision Making Differential Diagnosis Differential diagnosis includes: gastroenteritis, food borne illness, infec tions, appendicitis, diverticulitis, inflammatory bowel disease, obstruction, GI bleed, biliary pathology, as well as others were entertained. Medical Records Attestation: I reviewed the patient's medical records. Home Medications Current Medication List: was personally reviewed by me Laboratory Data Attestation: I reviewed the patient's lab results. Result diagrams: 05/25/19 05:37 05/25/19 05:37 Lab Results 05/24/19 05/24/19 05/24/19 Range/Units 17:38 17:38 17:38 WBC 17.43 H (4.8-10.8) K/uL RBC 3.56 L (4.2-5.4) M/uL Hgb 10.1 L (12.0-16.0) g/dL Hct 31.7 L (37-47) % MCV 89.0 (80-100) fL MCH 28.4 (25-34) pg MCHC 31.9 L (32-36) g/dL RDW Std Deviation 53.5 H (36.4-46.3) fL RDW Coeff of Lelo 16.5 H (11.5-14.5) % Plt Count 187 (130-400) K/uL MPV 9.1 (7.4-10.4) fL Immature Gran % (Auto) 0.5 % Neut % (Auto) 88.6 % Lymph % (Auto) 4.6 % [place] % (Auto) 6.0 % Eos % (Auto) 0.2 % Baso % (Auto) 0.1 % Immature Gran # (Auto) 0.08 H (0.00-0.02) K/uL Neut # (Auto) 15.45 H (1.4-6.5) K/uL Lymph # (Auto) 0.81 L (1.2-3.4) K/uL [place] # (Auto) 1.04 H (0.11-0.59) K/uL Eos # (Auto) 0.03 (0-0.5) K/uL Baso # (Auto) 0.02 (0-0.2) K/uL Polychromasia 1+ PT 12.4 H (9.0-12.0) Seconds INR 1.2 H (0.9-1.1) APTT 32.6 H (21.0-31.0) Seconds PTT Ratio 1.2 Sodium 135 L (136-145) mmol/L Potassium 4.0 (3.5-5.1) mmol/L Chloride 102 (98-107) mmol/L Carbon Dioxide 25 (21-32) mmol/L Anion Gap 8.0 (3-11) BUN 52 H (7-18) mg/dl Creatinine 1.71 H (0.6-1.2) mg/dl Est Cr Clr Drug Dosing 37.3 ml/min Est GFR ( Amer) 33.6 Est GFR (Non-Af Amer) 29.0 BUN/Creatinine Ratio 30.6 H (10-20) Glucose 210 H (70-99) mg/dl Calcium 9.0 (8.5-10.1) mg/dl Magnesium 1.9 (1.8-2.4) mg/dl Total Bilirubin 1.8 H (0.2-1) mg/dl AST 16 (15-37) U/L ALT 19 (12-78) U/L Alkaline Phosphatase 89 (45-117) U/L Troponin I 0.045 (0-0.045) ng/ml Total Protein 7.5 (6.4-8.2) gm/dl Albumin 3.2 L (3.4-5.0) gm/dl Globulin 4.3 H (2.5-4.0) gm/dl Albumin/Globulin Ratio 0.7 L (0.9-2) TSH 0.465 (0.300-4.500) uIu/ml Imaging Data Radiologist's Impression: Radiology results as stated below per my review and the radiologist's interpretation: XR chest 1V portable CLINICAL HISTORY: weakness COMPARISON STUDY: 11/08/2018 FINDINGS: The heart is enlarged. There is mild pulmonary vascular congestion. There are postsurgical changes of a midline sternotomy. There is no focal pulmonary consolidation. No pleural effusions are visualized.[ IMPRESSION: Cardiomegaly and mild central pulmonary vascular congestion. No evidence of acute parenchymal consolidation. Electronically signed by: Franco Lopez M.D. 05/24/2019 5:[address] head/brain wo con CLINICAL HISTORY: Change in neurological status with new onset weakness COMPARISON STUDY: 11/08/2018 TECHNIQUE: Axial CT of the brain is performed from the vertex to the skull base. IV contrast was not administered for this examination. A dose lowering technique was utilized adhering to the principles of ALARA. CT DOSE: 691.05 mGy.cm FINDINGS: There is a zacarias 7 mm dural based calcification in the left inferior parietal region. There is no CT evidence of acute cortical infarction. There is no evid ence of midline shift. There is no acute hemorrhage. No calvarial fractures are visualized. There are patchy white matter hypodensities likely on a small vessel basis. There is an old left frontal lobe infarct There is no evidence of pathologic ventricular dilatation. There is no evidence of acute sinusitis IMPRESSION: No acute intracranial findings Electronically signed by: Franco Lopez M.D. 05/24/2019 6:[address] SCAN OF THE ABDOMEN AND PELVIS WITHOUT CONTRAST CLINICAL HISTORY: vomiting COMPARISON STUDY: November 2018 TECHNIQUE: CT scan of the abdomen and pelvis was performed from the lung bases to the proximal femurs. Images are reviewed in the axial, sagittal, and coronal planes. IV contrast was not administered for this examination. A dose lowering technique was utilized adhering to the principles of ALARA. CT DOSE: 1505.85 mGy.cm FINDINGS: Lower chest: The heart is enlarged. There is no pericardial effusion. There are no pleural effusions. There are multiple bilateral point nodules the largest of which measures 1 cm. Liver: There is mild hepatic steatosis. No focal masses are visualized. Gallbladder: Surgically absent Spleen: The spleen is mildly enlarged measuring 12.5 cm. Pancreas: Unremarkable. Adrenal glands: There are 2 left adrenal nodules, similar to the preceding study. Kidneys: There are bilateral renal calcifications. While many of the calcifications are likely vascular, 2 tiny right renal calculi are suspected.. There is a 44 mm left renal cyst. There is no significant hydronephrosis. No u reteral or bladder calculi are visualized. Bowel: There are no transition zones indicate bowel obstruction. There is no evidence of acute diverticulitis. By history the appendix is surgically absent. Peritoneum: There is no intraperitoneal free air or abdominal ascites. Vasculature: The abdominal aorta is normal in course and caliber. Atheromatous calcifications are present within the aorta and iliac vessels. Adenopathy: None. Pelvic viscera: The uterus appears surgically absent. Skeletal structures: No destructive osseous lesions are seen. IMPRESSION: 1. Hepatic steatosis and mild hepatosplenomegaly 2. No evidence of bowel obstruction. No evidence of free air 3. No acute inflammatory changes 4. Multiple pulmonary nodules similar to the prior study. Electronically signed by: Franco Lopez M.D. 05/24/2019 6:29 PM ECG Data Attestation: I personally reviewed and interpreted this ECG as follows: Indication: weakness Rate (beats per minute): 84 Rhythm: normal sinus Findings: + LBBB; no PVC Comparison ECG Date: from (09-NOV-2018) Change: no significant change Blood Pressure Blood Pressure Findings: Elevated blood pressure Blood Pressure Disposition: further management by hospitalist MDM Narrative The patient is a 73-year-old female who presented to the emergency department for an evaluation of generalized weakness. The patient was complaining of nausea near syncope. She was found to have a fever as well as an elevated white blood cell count in the emergency department. The patient is a diabetic. Furt her laboratory and radiographic studies were obtained. The patient then told nursing that she was having pain and swelling around her vaginal area. She was found to have a very large area of right labial swelling. This appears to be consistent with a cellulitis. Attempts were made to incise and drain this area as it was felt to be a possible abscess. No purulent material was noted. The patient was treated with IV fluids and IV antibiotic in the emergency department. Because of her comorbidities and findings on laboratory studies I did discuss her case with the on-call [facility] hospitalist group. They have agreed to evaluate the patient in the emergency department for further man agement and disposition. The patient was feeling somewhat better on subsequent reevaluation. Impression & Plan Cellulitis of labia, Fever, Nausea & vomiting, Near syncope Discharge Plan Visit Data *Final* Discharge Date/Time: 05/24/19 19:46 Chief Complaint: Nausea Stated Complaint: FELL AND HIT HEAD,FEVER,NO APETITE Other Complaint: Fall ED Provider: Jose J Casanova Discharge Problem: Cellulitis of labia, Fever, Nausea & vomiting, Near syncope Patient Disposition: Admitted As Inpatient Discharge Instructions Interventions: ED Discharge Assessment Last Done: 05/24/19 19:46 Discharge Problem: Fever Qualifiers: Fever type: unspecified Qualified Code(s): R50.9 - Fever, unspecified Nausea & vomiting Qualifiers: Vomiting type: unspecified Vomiting Intractability: non-intractable Qualified Code(s): R11.2 - Nausea with vomiting, unspecified The scribe's documentation has been prepared under my direction and personally reviewed by me in its entirety. I confirm that the note above accurately reflects all work, treatment, procedures, and medical decision making performed by me.
--- NOTE | 2019-05-24 19:27 | History & Physical Report ---
Date of Service May 24, 2019 Assessment & Plan (1) Abscess of right genital labia: Continue intravenous Rocephin and Flagyl. Hold Eliquis. Consult DRY PASTE SUPERVISOR for possible incision and drainage Present on Admission?: Yes (2) Chronic atrial fibrillation: Rate controlled. Eliquis is on hold (3) Diabetes mellitus: Continue basal insulin. Sliding scale coverage. ADA diet (4) CAD (coronary artery disease): Continue current medical management (5) CHF (congestive heart failure): Diastolic. Stable. Continue current medical management History of Present Illness Chief Complaint: Nausea, fever, labial abscess Primary Care Provider: Jaquelin Crowley MD 73-year-old diabetic female with heart disease who has nausea, fever, right labial swelling and tenderness for several days. She has a large right labial abscess with minimal drainage. There is some surrounding cellulitis. There does not appear to be any gangrenous changes or skin breakdown at this time. White count is 17,400. She was administered intravenous Rocephin and Flagyl in the ED. DRY PASTE SUPERVISOR consultation is pending. She is admitted for further evaluation and treatment. Allergies Allergy/AdvReac Type Severity Reaction Status Date / Time NSAIDS (Non-Steroidal Allergy Unknown UNK? Verified 05/24/19 17:50 Anti-Inflamma DENIES SOB. capsaicin AdvReac Severe SHORTNESS Verified 05/24/19 17:50 OF BREATH diclofenac AdvReac Severe SHORTNESS Verified 05/24/19 17:50 OF BREATH Diclopak AdvReac Severe SHORTNESS Verified 07/24/18 10:57 OF BREATH Home Medications Home Medications Medication Instructions Recorded Confirmed Type albuterol sulfate HFA 90 1 - 2 puffs INH Q4H PRN gm 07/30/18 05/24/19 History mcg/actuation aerosol inhaler allopurinol 100 mg tablet 200 mg PO QAM tab 07/30/18 05/24/19 History furosemide 80 mg tablet 120 mg PO BID tab 07/30/18 05/24/19 History hydralazine 50 mg tablet 50 mg PO TID 07/30/18 05/24/19 History nitroglycerin 0.4 mg sublingual 0.4 mg SL UD PRN tab 07/30/18 05/24/19 History tablet ropinirole 5 mg tablet 5 mg PO BID tab 07/30/18 05/24/19 History rosuvastatin 40 mg tablet 40 mg PO QAM tab 07/30/18 05/24/19 History spironolactone 25 mg tablet 25 mg PO QAM tab 07/30/18 05/24/19 History cholecalciferol (vitamin D3) 2,000 unit PO QAM 10/13/18 05/24/19 History [Vitamin D3] metoprolol succinate 50 mg PO QAM 10/13/18 05/24/19 History potassium chloride 20 meq PO TID 10/13/18 05/24/19 History Levemir U-100 Insulin 30 units SUBCUT BID 11/08/18 05/24/19 History Novolin N NPH U-100 Insulin 10 units SUBCUT HS 11/08/18 05/24/19 History Novolog U-100 Insulin aspart 25 unit SUBCUT QAM 11/08/18 05/24/19 History apixaban 5 mg tablet 5 mg PO BID 11/21/18 05/24/19 History acetaminophen [Tylenol Extra 500 mg PO Q6H PRN 05/24/19 05/24/19 History Strength] amitriptyline 50 mg PO HS 05/24/19 05/24/19 History ferrous sulfate [iron] 325 mg PO QAM 05/24/19 05/24/19 History insulin aspart U-100 [Novolog 20 unit SUBCUT BID 05/24/19 05/24/19 History U-100 Insulin aspart] magnesium chloride 64 mg PO TID 05/24/19 05/24/19 History Past Med/Surg History Medical History Lumbar spinal stenosis (Chronic) Severe at L4-5 Chronic obstructive pulmonary disease (Chronic) Myocardial Infarction (Chronic) 2012 Diabetic foot ulcer associated with type 2 diabetes mellitus (Acute) Status post amputation of toe of left foot (Acute) Acquired hammer toe of right foot (Acute) Callus (Acute) Type 2 diabetes mellitus with diabetic neuropathy (Chronic) Hallux valgus (acquired), left foot (Chronic) Acquired hallux valgus of right foot (Chronic) Acquired claw toe of left foot (Chronic) Anemia (Resolved) Neuropathic ulcer of toe of right foot (Acute) 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 CORTES Chronic kidney disease FOLLOWS W/ DR. SHAY Clostridium difficile infection DX [facility] 11/2018 - TREATED - REPORTS CONTINUED DIARRHEA - STOOL SPECIMEN PROVIDED TO PCP OFFICE 01/12/19. RESULTS PENDING Diabetes mellitus, type 2 IDDM Fatty liver Gout History of hypotension Lung cancer S/P SURGERY Osteoarthritis Restless leg syndrome Sleep apnea CPAP Syncope Transient ischemic attack (TIA) 2005 Surgical History Hx of CABG (Resolved) 2012 - - [place] - [place] - 2 VESSELS - FOLLOWS W/ DR. CORTES History of bilateral knee replacement (Resolved) H/O: hysterectomy (Resolved) History of appendectomy (Resolved) History of amputation LEFT 3RD TOE History of appendectomy History of bronchoscopy History of cardiac cath 2012 [facility] - [place] - NO STENTS/ANGIOPLASTY -- > CABG - FOLLOWS W/ DR. CORTES History of cholecystectomy History of colonoscopy 11/2018 [facility] History of esophagogastroduodenoscopy (EGD) 11/2018 [facility] History of hysterectomy with oophorectomy History of lobectomy of lung RML History of surgery VATS PROCEDURE History of total knee replacement BL Family History Daughter Family history of diabetes mellitus Social History Preferred Language: Sami Communication Ability: Effective Visual Impairment: No Limitations Hearing Ability: Normal Beliefs That Will Affect Care: None marital status: Current Living Situation: Spouse Feels Safe at Home: Yes Smoking Status: Former smoker Tobacco Type: cigarettes Cigarettes Per Day: 10 Second Hand Exposure: No Hx Alcohol Use: No Hx Substance Use: No Review of Systems Review of Systems: Constitutional-fever and chills ENT-no blurred vision, no double vision, no epistaxis, no sore throat Respiratory-no cough, no wheezing, no shortness of breath Cardiac-no palpitations, no chest pain, no syncope GI-no nausea, vomiting, diarrhea, melena, hematochezia [id number] labial abscess as discussed above Musculoskeletal-no joint pain, no muscle tenderness Skin-no bruising, no rashes, no pruritus Neuro-no isolated weakness, no paresthesia, no weakness Psych-no depression, no anxiety Physical Exam Physical Exam: General-alert and oriented x3, no fevers, no chills HEENT-head atraumatic and normocephalic, TMs intact bilaterally, pupils equal and reactive to light, extraocular muscles intact Neck-no lymphadenopathy or thyromegaly, trachea midline Chest-clear to auscultation percussion. No rales wheezing or rhonchi Cardiac-irregular rhythm consistent with atrial fibrillation. Controlled rate, normal S1 and S2 Abdomen-normal bowel sounds, nontender, no hepatosplenomegaly Extremities-no cyanosis, clubbing, or edema GYNright labial swelling, tenderness, induration, erythema Neuro-cranial nerves II through XII intact, motor and sensory function within normal limits, strength symmetrical 5/5, no focal deficits Psych-normal affect, normal mood Results & Data Vital Signs (Past 12 Hours) Vital Signs Temp Pulse Pulse Resp BP Pulse Ox 05/24/19 19:01 87 22 136/67 93 05/24/19 17:35 94 05/24/19 17:15 38 C H 83 18 98 Laboratory Results 05/24/19 17:38 05/24/19 17:38 PG Care Time/CCT Total # of Minutes Spent Total Time Spent with Patient: Total time spent is greater than 50% in coordinat ion of care (as documented) at patient's floor/unit and/or counseling patient:
[2019-05-24] MEDS ORDERED: ALUMINUM/MAGNESIUM SUSP 30 ML UDC PO PRN (19:58)
[2019-05-24] MEDS ORDERED: NITROGLYCERIN SL 0.4 MG/TAB TAB SL PRN (19:58)
[2019-05-24] MEDS ORDERED: ONDANSETRON INJ 2 MG/ML 2 ML VIAL IV PRN (19:58)
[2019-05-24] MEDS ORDERED: ALBUTEROL HFA 8 GM INHALER INH PRN (20:15)
[2019-05-24] MEDS ORDERED: GLUCOSE 40% GEL 15 GM TUBE PO PRN (20:30)
[2019-05-24] MEDS ORDERED: CARBOHYDRATES FOR HYPOGLYCEMIA PO PRN (20:30)
[2019-05-24] MEDS ORDERED: DEXTROSE 50% 50 ML SYRINGE IV PRN (20:30)
[2019-05-24] MEDS ORDERED: GLUCOSE 10 TABS/TUBE PO PRN (20:30)
[2019-05-24] MEDS ORDERED: GLUCAGON FOR INJ 1 MG VIAL IM PRN (20:30)
[2019-05-24] MEDS: POTASSIUM CHLORIDE 20 MEQ TABCR PO SCH (21:42)
[2019-05-24] MEDS: HydrALAZINE TAB 50 MG TAB PO SCH (21:42)
[2019-05-24] MEDS: AMITRIPTYLINE HCL 50 MG TAB PO SCH (21:42)
[2019-05-24] MEDS: MAGNESIUM CHLORIDE 64MG DELAYED REL TAB PO SCH (21:43)
[2019-05-24] MEDS: INSULIN DETEMIR FLEXPEN/FLEX TOUCH 100 UNITS/ML 3ML SC SCH (21:43)
[2019-05-24] MEDS: INSULIN HUMAN NPH SC SCH (21:43)
[2019-05-24] MEDS: ROPINIROLE HCL 5 MG TABLET PO SCH (21:43)
[2019-05-24] MEDS: INSULIN ASPART 100 UNITS/ML 3 ML PEN SC SCH (22:29)
[2019-05-24 22:50] LABS: Appearance Urine Cloudy (Clear); Bacteria Urine Automated Negative (Negative); Bilirubin Urine Negative (Negative); Blood Urine Negative (Negative); Color Urine Yellow; Epithelial Cell Urine Auto 20-30 /lpf (0-5); Glucose Urine UA Negative (Negative); Ketones Urine Negative (Negative); Leukocyte Esterase Urine Negative (Negative); Nitrite Urine Negative (Negative); Protein Urine Negative (Negative); RBC Urine Automated 0-4 /hpf (0-4); Specific Gravity Urine 1.019 (1.000-1.030); Urobilinogen Urine Negative (Negative)
[2019-05-25] MEDS: metroNIDAZOLE 500 MG/100 ML BAG IV SCH ×3 (01:57→20:16)
[2019-05-25 05:50] LABS: Basophils # (auto) 0.02 K/uL (0-0.2); Basophils % (auto) 0.1 %; Eosinophils # (auto) 0.05 K/uL (0-0.5); Eosinophils % (auto) 0.3 %; Hematocrit (blood only) 29.8 % (37-47); Hemoglobin 9.3 g/dL (12.0-16.0); Immature Granulocytes # (auto) 0.07 K/uL (0.00-0.02); Immature Granulocytes % (auto) 0.4 %; Lymphocytes # (auto) 1.01 K/uL (1.2-3.4); Lymphocytes % (auto) 6.2 %; Mean Corpuscular Hgb Conc 31.2 g/dL (32-36); Mean Corpuscular Volume 88.4 fL (80-100); Mean Platelet Volume 9.1 fL (7.4-10.4); Monocytes % (auto) 6.7 %; Neutrophils # (auto) 14.07 K/uL (1.4-6.5); Neutrophils % (auto) 86.3 %; Platelet Count 160 K/uL (130-400); RDW Coefficient of Variation 16.7 % (11.5-14.5); RDW Standard Deviation 54.4 fL (36.4-46.3); Red Blood Count 3.37 M/uL (4.2-5.4); White Blood Count 16.32 K/uL (4.8-10.8)
[2019-05-25 06:25] LABS: BUN Creatinine Ratio 32.3 (10-20); Calcium 8.9 mg/dl (8.5-10.1); Creatinine Clr Calc Pharmacy 39.7 ml/min; Est GFR (African American) 37.5; Est GFR (Non-African American) 32.4
--- NOTE | 2019-05-25 08:02 | Consultation Report ---
DATE OF CONSULTATION: 05/25/2019 [facility] CONSULT REASON FOR CONSULT: Evaluation for a right vulvar abscess. HISTORY OF PRESENT ILLNESS: The patient is a 73-year-old 5, para 5-0-0-5 white female who gives a history of having had some lower extremity weakness and a fall at home which prompted her to come to the Emergency Room for evaluation. During her evaluation for that issue, she also mentioned that she was having vaginal soreness and swelling for the last several days. Prior to that, she had no itching or soreness. No unusual vaginal discharge or bleeding. She started with this one small area on the right side of the vulva and the spread rapidly over the last several days. She denies any drainage from the area as well. She does have fever and chills now; however, prior to this, she had not noticed any symptoms that were systemic. The area was incised and drained by Dr. Casanova and a moderate amount of purulent material was removed. We are here to evaluate whether there needs to be any further drainage of the area. PAST GYNECOLOGIC HISTORY: She has had 5 vaginal deliveries in 5 years without any complications. She did have an abdominal hysterectomy done many years ago. She does still have 1 ovary. She is unsure of the reason for the hysterectomy, although she knew it was not for malignancy. Since then, she has had no other issues. She continues to have good bladder control and bowel control. No issues with an ongoing vaginal discharge or bleeding. PHYSICAL EXAMINATION: On exam, there is significant swelling of the right labia minora and majora. The tissue was indurated and tender with more of a woody type consistency. There is no appreciable abscess or fluctuance to this area. Gentle squeezing of the area especially in the area of the incision and drainage. There is no ongoing drainage noted. There are no lymph nodes palpable in the groin. The redness does spread to the mons on the right side as well. ASSESSMENT: Right vulvar cellulitis with no appreciable abscess present now after drainage in the Emergency Room. Continue with antibiotics as prescribed. I would add Sitz baths twice a day and ice packs to the perineum as needed. I do not feel she needs any other topical ointments at this time. We will follow along with you to be sure that no abscess does appear during her admission. Thank you very much for this consult. If there are any other questions, please do not hesitate to call myself. Dr. Villatoro will be masonry inspector on May 25.
[2019-05-25] MEDS: cefTRIAXone SODIUM 2,000 MG in DEXTROSE 5% 50 ML IV SCH (08:16)
[2019-05-25] MEDS: INSULIN DETEMIR FLEXPEN/FLEX TOUCH 100 UNITS/ML 3ML SC SCH ×2 (08:18→20:19)
[2019-05-25] MEDS: INSULIN ASPART 100 UNITS/ML 3 ML PEN SC SCH ×4 (08:19→20:18)
[2019-05-25] MEDS: ROPINIROLE HCL 5 MG TABLET PO SCH ×2 (08:19→20:17)
[2019-05-25] MEDS: MAGNESIUM CHLORIDE 64MG DELAYED REL TAB PO SCH ×3 (08:20→20:18)
[2019-05-25] MEDS: ROSUVASTATIN CALCIUM 20 MG TAB PO SCH (08:20)
[2019-05-25] MEDS: ALLOPURINOL 100 MG TAB PO SCH (08:20)
[2019-05-25] MEDS: HydrALAZINE TAB 50 MG TAB PO SCH ×3 (08:20→20:16)
[2019-05-25] MEDS: SPIRONOLACTONE 25 MG TAB PO SCH (08:20)
[2019-05-25] MEDS: METOPROLOL SUCC 50MG EXT REL TAB PO SCH (08:20)
[2019-05-25] MEDS: CHOLECALCIFEROL 1,000 UNITS TAB PO SCH (08:21)
[2019-05-25] MEDS: POTASSIUM CHLORIDE 20 MEQ TABCR PO SCH ×3 (08:21→20:17)
[2019-05-25] MEDS: FUROSEMIDE 80 MG TAB PO SCH ×2 (08:21→16:43)
[2019-05-25] MEDS: FERROUS SULFATE 325 MG TAB PO SCH (08:21)
--- NOTE | 2019-05-25 15:32 | Hospitalist Progress Note ---
Date of Service May 25, 2019 Assessment & Plan (1) Abscess of right genital labia: Unclear if there was ever an abscess vs. simple cellulitis. I&D was attempted in the ED on 05/24; however, no purulent material was expressed per ED physician notes. Nonetheless, a sample was collected and sent to the lab. - Continue intravenous ceftriaxone - Stop metronidazole for no actual abscess and for culture results - Follow culture done on 05/24 - Presently growing Group F beta-hemolytic Strep - Appreciate toy electric train repairer assistance - Continued Sitz baths and icing. (2) Diarrhea: Had episode of C. diff in 11/2018 with diarrhea never really resolving per patient. - Still toxin-positive on retest on 12/11/2018, but negative on 12/30/2018. On 01/12/2019, sample was rejected for being too firm. - Will retest today as patient reports continued watery diarrhea 2-3 times/day. (3) Chronic atrial fibrillation: Rate controlled with Toprol XL 50mg daily. - Eliquis is on hold after surgery; will restart tomorrow if no further need for procedure and bleeding improving (4) Diabetes mellitus: A1c was 5.8% in 12/2018. - Continue basal insulin. - Sliding scale coverage. - ADA diet - Repeat A1c in the morning (5) CKD (chronic kidney disease) stage 3, GFR 30-59 ml/min: Baseline Cr has varied significantly in last 6 months, but baselin appears to be ~1.3-1.4 with eGFR ~35-40. - Renally-dose medications - Avoid nephrotoxins - Monitor Cr while admitted (6) CAD (coronary artery disease): No indication of current CAD issues. - Continue current medical management (7) CHF (congestive heart failure): Diastolic. Stable. No exacerbation. - Continue current medical management (8) DVT prophylaxis: On apixaban as outpatient; will restart as able. SCDs until then. Subjective Doing well. Her pain is improved from admission. Right labrium are painful when sitting upright. Having diarrhea. Watery diarrhea 2x/day. Review of Systems Review of Systems: All systems reviewed & are unremarkable except as noted in HPI & below Physical Exam Constitutional: WD/WN, vitals as above Eyes: EOM intact bilaterally; no conjunctival abnormality ENMT: external ear and nose normal, oropharynx normal Neck: trachea midline, no thyromegaly normal visual inspection Respiratory: normal respiratory effort, lungs clear to auscultation no respiratory distress Cardiovascular: RRR, no murmur, no edema Gastrointestinal (Abdomen): Inspection/Auscultation: abdomen normal to inspection; abdomen not distended Musculoskeletal: no cyanosis or clubbing, extremities motor strength 5/5 Skin: no rashes, warm and dry Neurologic: moves all extremities and awake Psychiatric: Orientation: alert, oriented to person and cooperative Genitourinary: + external swelling (Right labrium is swollen, red, and indurated. Scant drainage from wound.) Results & Data Vital Signs (Past 12 Hours) Vital Signs Temp Pulse Resp BP Pulse Ox 05/25/19 15:14 37.1 C 73 20 119/71 95 05/25/19 07:19 37.6 C H 79 20 118/75 99 PG Care Time/CCT Total # of Minutes Spent Total Time Spent with Patient: Total time spent is greater than 50% in coordination of care (as documented) at patient's floor/unit and/or counseling patient:
--- NOTE | 2019-05-25 19:42 | Communication Note ---
Date of Service: May 25, 2019 Patient notes she is doing well. Notes does not have alot of pain unless sits wrong. On exam, the entire right labia is swollen, firm and wooden feeling, there is an area of bruising on the lower part of the labia, no obvious purulent drainage, but there is a bit of blood-tinged fluid on the chux. It does not appear significantly changed from Dr. Dyer's exam earlier this am. Will continue to follow. Just noted that the flagyl was d/c. Do not think that the ceftriaxone is enough coverage for this and gram neg coverage should continue. Discussed with Dr. Ervin. Will add back the metronidazole.
[2019-05-25] MEDS: AMITRIPTYLINE HCL 50 MG TAB PO SCH (20:18)
[2019-05-25] MEDS: INSULIN HUMAN NPH SC SCH (20:20)
[2019-05-26] MEDS: metroNIDAZOLE 500 MG/100 ML BAG IV SCH ×3 (04:57→19:46)
[2019-05-26 07:06] LABS: Hematocrit (blood only) 29.1 % (37-47); Hemoglobin 9.3 g/dL (12.0-16.0); Mean Corpuscular Volume 87.7 fL (80-100); Mean Platelet Volume 9.3 fL (7.4-10.4); Platelet Count 188 K/uL (130-400); RDW Coefficient of Variation 16.6 % (11.5-14.5); RDW Standard Deviation 53.6 fL (36.4-46.3); Red Blood Count 3.32 M/uL (4.2-5.4); White Blood Count 12.97 K/uL (4.8-10.8)
[2019-05-26 07:11] LABS: Basophils # (auto) 0.04 K/uL (0-0.2); Basophils % (auto) 0.3 %; Eosinophils # (auto) 0.19 K/uL (0-0.5); Eosinophils % (auto) 1.5 %; Immature Granulocytes # (auto) 0.04 K/uL (0.00-0.02); Immature Granulocytes % (auto) 0.3 %; Lymphocytes # (auto) 1.09 K/uL (1.2-3.4); Lymphocytes % (auto) 8.4 %; Monocytes # (auto) 0.88 K/uL (0.11-0.59); Monocytes % (auto) 6.8 %; Neutrophils # (auto) 10.73 K/uL (1.4-6.5); Neutrophils % (auto) 82.7 %
[2019-05-26 07:23] LABS: Calcium 8.8 mg/dl (8.5-10.1); Creatinine Clr Calc Pharmacy 34.6 ml/min; Est GFR (African American) 31.8; Est GFR (Non-African American) 27.4
[2019-05-26 07:56] LABS: Estimated Average Glucose 171 mg/dl; Hemoglobin A1C 7.6 % (4.5-5.6)
--- NOTE | 2019-05-26 08:18 | Gynecologic Progress Note ---
Date of Service May 26, 2019 Assessment & Plan (1) Abscess of right genital labia: Group F strep is preliminarily growing from the culture obtained in the ED. ON a search of up to date, ceftriaxone and flagyl are noted as the first line drugs. Should continue these for at least 48 hours, then consider 10 oral antibiotic course. Consider rescreen for C. diff given diarrhea, but likely side effect of antibiotics. Her labia did not get this way over night, in fact it took a few weeks. It will like take a few weeks for total resolution of the cellulitis. Discussed this course with the patient. Patient examined today with Dr. Anderson who will be taking over call today and will see the patient in the am. Subjective Patient notes she is most concerned about the onset of diarrhea this am. Notes can't really control it. Notes she is not really having pain of her vulva. No other changes overnight. Physical Exam Constitutional: WD/WN, vitals as above Genitourinary: The right labia is slightly improved this am. Less erythema up on the mons. The labia is still indurated but may be slightly softer this am. Has some sloughing of the skin on the lower labia and the area where they attempted to I&D I can express some very slight bloody/slightly purulent fluid. No fluctuance c/w abscess. Results & Data Vital Signs (Past 12 Hours) Vital Signs Temp Pulse Resp BP Pulse Ox 05/26/19 07:11 36.9 C 73 18 122/72 93 05/25/19 23:14 36.8 C 87 20 122/66 92
[2019-05-26] MEDS: CHOLECALCIFEROL 1,000 UNITS TAB PO SCH (08:26)
[2019-05-26] MEDS: FUROSEMIDE 80 MG TAB PO SCH ×2 (08:26→16:39)
[2019-05-26] MEDS: ALLOPURINOL 100 MG TAB PO SCH (08:26)
[2019-05-26] MEDS: FERROUS SULFATE 325 MG TAB PO SCH (08:26)
[2019-05-26] MEDS: METOPROLOL SUCC 50MG EXT REL TAB PO SCH (08:26)
[2019-05-26] MEDS: SPIRONOLACTONE 25 MG TAB PO SCH (08:27)
[2019-05-26] MEDS: ROPINIROLE HCL 5 MG TABLET PO SCH ×2 (08:27→20:38)
[2019-05-26] MEDS: MAGNESIUM CHLORIDE 64MG DELAYED REL TAB PO SCH ×3 (08:27→20:37)
[2019-05-26] MEDS: ROSUVASTATIN CALCIUM 20 MG TAB PO SCH (08:27)
[2019-05-26] MEDS: POTASSIUM CHLORIDE 20 MEQ TABCR PO SCH ×3 (08:28→20:38)
[2019-05-26] MEDS: HydrALAZINE TAB 50 MG TAB PO SCH ×3 (08:28→20:38)
[2019-05-26] MEDS: INSULIN DETEMIR FLEXPEN/FLEX TOUCH 100 UNITS/ML 3ML SC SCH ×2 (08:33→20:40)
[2019-05-26] MEDS: INSULIN ASPART 100 UNITS/ML 3 ML PEN SC SCH ×4 (08:33→20:40)
[2019-05-26] MEDS: cefTRIAXone SODIUM 2,000 MG in DEXTROSE 5% 50 ML IV SCH (08:36)
[2019-05-26] MEDS ORDERED: LOPERAMIDE HCL 2 MG CAP PO PRN (08:55)
[2019-05-26] MEDS ORDERED: LOPERAMIDE HCL 2 MG CAP PO STA (08:55)
--- NOTE | 2019-05-26 16:29 | Hospitalist Progress Note ---
Date of Service May 26, 2019 Assessment & Plan (1) Abscess of right genital labia: Unclear if there was ever an abscess vs. simple cellulitis. I&D was attempted in the ED on 05/24; however, no purulent material was expressed per ED physician notes. Nonetheless, a sample was collected and sent to the lab. - Continue intravenous ceftriaxone - Stopped metronidazole on 05/25 for no actual abscess and for culture results; however, professional advisor felt it metronidazole was needed and restarted it the same day. - Will continue metronidazole for now. Continue IV abx for 24-48 hours. - Follow culture done on 05/24 - Presently growing Group F beta-hemolytic Strep, sensitivities pending - Appreciate professional advisor assistance - Continued Sitz baths and icing. (2) Diarrhea: Had episode of C. diff in 11/2018 with diarrhea never really resolving per patient. - Still toxin-positive on retest on 12/11/2018, but negative on 12/30/2018. On 01/12/2019, sample was rejected for being too firm. - Retest on 05/26 still negative. - Imodium and probiotic (3) Chronic atrial fibrillation: Rate controlled with Toprol XL 50mg daily. - Restarted Eliquis on 05/26 (4) Diabetes mellitus: A1c was 5.8% in 12/2018, but up to 7.6% on this admission. - Continue basal insulin. - Sliding scale coverage. - ADA diet (5) CKD (chronic kidney disease) stage 3, GFR 30-59 ml/min: Baseline Cr has varied significantly in last 6 months, but baseline appears to be ~1.3-1.4 with eGFR ~35-40. - Renally-dose medications - Avoid nephrotoxins - Monitor Cr while admitted (6) CAD (coronary artery disease): No indication of current CAD issues. - Continue current medical management (7) CHF (congestive heart failure): Diastolic. Stable. No exacerbation. - Continue current medical management (8) DVT prophylaxis: Apixaban Subjective Doing well today. Less pain in the labia. Continued diarrhea. Review of Systems Review of Systems: All systems reviewed & are unremarkable except as noted in HPI & below Physical Exam Constitutional: WD/WN, vitals as above Eyes: EOM intact bilaterally; no conjunctival abnormality ENMT: external ear and nose normal, oropharynx normal Neck: trachea midline, no thyromegaly normal visual inspection Respiratory: normal respiratory effort, lungs clear to auscultation no respiratory distress Cardiovascular: RRR, no murmur, no edema Gastrointestinal (Abdomen): Inspection/Auscultation: abdomen normal to inspection; abdomen not distended Musculoskeletal: no cyanosis or clubbing, extremities motor strength 5/5 Skin: no rashes, warm and dry Neurologic: moves all extremities and awake Psychiatric: Orientation: alert, oriented to person and cooperative Genitourinary: + external swelling (Right labrium is swollen, red, and indurated. Mildly improved.) Results & Data Vital Signs (Past 12 Hours) Vital Signs Temp Pulse Resp BP Pulse Ox 05/26/19 07:11 36.9 C 73 18 122/72 93 PG Care Time/CCT Total # of Minutes Spent Total Time Spent with Patient: Total time spent is greater than 50% in coordination of care (as documented) at patient's floor/unit and/or counseling patient:
[2019-05-26] MEDS: ACETAMINOPHEN 325 MG TAB PO PRN (18:22)
[2019-05-26] MEDS: APIXABAN 5 MG TABLET PO SCH (20:37)
[2019-05-26] MEDS: AMITRIPTYLINE HCL 50 MG TAB PO SCH (20:39)
[2019-05-26] MEDS: INSULIN HUMAN NPH SC SCH (20:41)
[2019-05-26] MEDS: DICLOFENAC SOD 1% GEL 100 GM TUBE EXT SCH (21:42)
[2019-05-27] MEDS: metroNIDAZOLE 500 MG/100 ML BAG IV SCH (03:53)
[2019-05-27 05:52] LABS: Basophils # (auto) 0.04 K/uL (0-0.2); Basophils % (auto) 0.4 %; Eosinophils % (auto) 2.1 %; Hematocrit (blood only) 28.7 % (37-47); Hemoglobin 9.1 g/dL (12.0-16.0); Immature Granulocytes # (auto) 0.03 K/uL (0.00-0.02); Immature Granulocytes % (auto) 0.3 %; Lymphocytes # (auto) 0.82 K/uL (1.2-3.4); Lymphocytes % (auto) 8.7 %; Mean Corpuscular Hgb Conc 31.7 g/dL (32-36); Mean Corpuscular Volume 87.2 fL (80-100); Mean Platelet Volume 9.2 fL (7.4-10.4); Monocytes # (auto) 0.59 K/uL (0.11-0.59); Monocytes % (auto) 6.3 %; Neutrophils # (auto) 7.74 K/uL (1.4-6.5); Neutrophils % (auto) 82.2 %; Platelet Count 184 K/uL (130-400); RDW Coefficient of Variation 16.4 % (11.5-14.5); RDW Standard Deviation 52.5 fL (36.4-46.3); Red Blood Count 3.29 M/uL (4.2-5.4); White Blood Count 9.42 K/uL (4.8-10.8)
[2019-05-27 06:22] LABS: BUN Creatinine Ratio 27.7 (10-20); Calcium 8.5 mg/dl (8.5-10.1); Creatinine Clr Calc Pharmacy 36.2 ml/min; Est GFR (African American) 33.6; Potassium 3.5 mmol/L (3.5-5.1)
[2019-05-27] MEDS: cefTRIAXone SODIUM 2,000 MG in DEXTROSE 5% 50 ML IV SCH (08:15)
[2019-05-27] MEDS: MAGNESIUM CHLORIDE 64MG DELAYED REL TAB PO SCH ×3 (08:17→21:13)
[2019-05-27] MEDS: ROSUVASTATIN CALCIUM 20 MG TAB PO SCH (08:17)
[2019-05-27] MEDS: METOPROLOL SUCC 50MG EXT REL TAB PO SCH (08:18)
[2019-05-27] MEDS: ROPINIROLE HCL 5 MG TABLET PO SCH ×2 (08:18→21:12)
[2019-05-27] MEDS: POTASSIUM CHLORIDE 20 MEQ TABCR PO SCH ×3 (08:19→21:13)
[2019-05-27] MEDS: FUROSEMIDE 80 MG TAB PO SCH ×2 (08:19→17:07)
[2019-05-27] MEDS: CHOLECALCIFEROL 1,000 UNITS TAB PO SCH (08:19)
[2019-05-27] MEDS: ALLOPURINOL 100 MG TAB PO SCH (08:21)
[2019-05-27] MEDS: DICLOFENAC SOD 1% GEL 100 GM TUBE EXT SCH ×4 (08:21→21:12)
[2019-05-27] MEDS: FERROUS SULFATE 325 MG TAB PO SCH (08:22)
[2019-05-27] MEDS: HydrALAZINE TAB 50 MG TAB PO SCH ×3 (08:22→21:14)
[2019-05-27] MEDS: SPIRONOLACTONE 25 MG TAB PO SCH (08:22)
[2019-05-27] MEDS: APIXABAN 5 MG TABLET PO SCH ×2 (08:23→21:13)
[2019-05-27] MEDS: SACCHAROMYCES BOULARDII 250 MG CAP PO SCH (08:23)
--- NOTE | 2019-05-27 08:29 | Gynecologic Progress Note ---
Date of Service May 27, 2019 Assessment & Plan (1) Abscess of right genital labia: NEW: Continues to improve with appropriate antibiotic coverage for the identified pathogen. Would transition to oral flagyl and cephalosporin today, to assure patient tolerance of at least one dose each, then send home with ten days' supply of each. Please have f/u in [facility] office after abx completed, in 2-3 weeks, with either Dr. Villatoro or myself or Dr. Dyer, as we have seen the patient during this stay. Call [phone] for appointment. We will sign off her care at this point but remain available as needed for any concerns or worsening. COPIED: Group F strep is preliminarily growing from the culture obtained in the ED. ON a search of up to date, ceftriaxone and flagyl are noted as the first line drugs. Should continue these for at least 48 hours, then consider 10 oral antibiotic course. Consider rescreen for C. diff given diarrhea, but likely side effect of antibiotics. Her labia did not get this way over night, in fact it took a few weeks. It will like take a few weeks for total resolution of the cellulitis. Discussed this course with the patient. Patient examined today with Dr. Anderson who will be taking over call today and will see the patient in the am. Subjective Patient feeling better - diarrhea stopped with immodium, labium less painful. Biggest complaint now is R shoulder and upper arm pain. Physical Exam Physical Exam: Area of labial induration is decreased, and drainage is decreased from attempted I&D site. Pain improved / less TTP than yesterday per patient. Genitourinary: + external swelling (Right labium remains erythematous and indurated. Improved from yesterday.) Results & Data Vital Signs (Past 12 Hours) Vital Signs Temp Pulse Resp BP Pulse Ox 05/27/19 07:16 37.1 C 70 18 117/66 93 05/26/19 23:00 37 C 72 20 127/73 93 Laboratory Results Laboratory Results - last 24 hr 05/26/19 05/26/19 05/26/19 11:29 16:24 20:30 WBC RBC Hgb Hct MCV MCH MCHC RDW Std Deviation RDW Coeff of Lelo Plt Count MPV Immature Gran % (Auto) Neut % (Auto) Lymph % (Auto) [place] % (Auto) Eos % (Auto) Baso % (Auto) Immature Gran # (Auto) Neut # (Auto) Lymph # (Auto) [place] # (Auto) Eos # (Auto) Baso # (Auto) Sodium Potassium Chloride Carbon Dioxide Anion Gap BUN Creatinine Est Cr Clr Drug Dosing Est GFR ( Amer) Est GFR (Non-Af Amer) BUN/Creatinine Ratio Glucose POC Glucose 186 H 132 H 157 H Calcium 05/27/19 05/27/19 05/27/19 05:35 05:35 07:33 WBC 9.42 RBC 3.29 L Hgb 9.1 L Hct 28.7 L MCV 87.2 MCH 27.7 MCHC 31.7 L RDW Std Deviation 52.5 H RDW Coeff of Lelo 16.4 H Plt Count 184 MPV 9.2 Immature Gran % (Auto) 0.3 Neut % (Auto) 82.2 Lymph % (Auto) 8.7 [place] % (Auto) 6.3 Eos % (Auto) 2.1 Baso % (Auto) 0.4 Immature Gran # (Auto) 0.03 H Neut # (Auto) 7.74 H Lymph # (Auto) 0.82 L [place] # (Auto) 0.59 Eos # (Auto) 0.20 Baso # (Auto) 0.04 Sodium 133 L Potassium 3.5 Chloride 101 Carbon Dioxide 25 Anion Gap 7.0 BUN 47 H Creatinine 1.71 H Est Cr Clr Drug Dosing 36.2 Est GFR ( Amer) 33.6 Est GFR (Non-Af Amer) 29.0 BUN/Creatinine Ratio 27.7 H Glucose 106 H POC Glucose 113 H Calcium 8.5
[2019-05-27] MEDS: INSULIN DETEMIR FLEXPEN/FLEX TOUCH 100 UNITS/ML 3ML SC SCH ×2 (08:47→21:10)
[2019-05-27] MEDS: INSULIN ASPART 100 UNITS/ML 3 ML PEN SC SCH ×4 (08:48→21:09)
--- NOTE | 2019-05-27 11:51 | Ultrasound Report ---
US extremity nonvascular CLINICAL HISTORY: RUE erythema/swelling, mild fluctuance; abscess? COMPARISON STUDY: No previous studies for comparison. FINDINGS: Unremarkable evaluation of the soft tissues of the upper arm. Mild soft tissue edema mechanical manufacturing engineer ior right arm. No evidence for abscess or collection. IMPRESSION: Mild soft tissue edema at the point clinical tenderness. No evidence for mass abscess or collection. The above report was generated using voice recognition software. It may contain grammatical, syntax or spelling errors. Electronically signed by: Hank Camacho M.D. 05/27/2019 11:50 AM
[2019-05-27] MEDS: metroNIDAZOLE 500 MG TAB PO SCH ×2 (12:47→21:12)
[2019-05-27] MEDS ORDERED: VANCOMYCIN CONSULT ACTIVE PRN (13:40)
--- NOTE | 2019-05-27 13:43 | Hospitalist Progress Note ---
Date of Service May 27, 2019 Assessment & Plan (1) Right arm cellulitis: Right arm with new area of redness and pain. Appears to be cellulitic in nature. Already on ceftriaxone & metronidazole for her labial cellulitis. U/S of the area on 05/27 showed only mild swelling. - Add vanc for MRSA coverage. (2) Abscess of right genital labia: Unclear if there was ever an abscess vs. simple cellulitis. I&D was attempted in the ED on 05/24; however, no purulent material was expressed per ED physician notes. Nonetheless, a sample was collected and sent to the lab. - Continue intravenous ceftriaxone - Stopped metronidazole on 05/25 for no actual abscess and for culture results; however, printing plate clerk felt it metronidazole was needed and restarted it the same day. - Follow culture done on 05/24 - Presently growing Group F beta-hemolytic Strep, Gram(+) cocci (unidentified), and Bacteroides thetaiotaomicron. - Appreciate printing plate clerk assistance - Continued Sitz baths and icing. - Will switch to Keflex and metronidzole PO (3) Diarrhea: Had episode of C. diff in 11/2018 with diarrhea never really resolving per patient. - Still toxin-positive on retest on 12/11/2018, but negative on 12/30/2018. On 01/12/2019, sample was rejected for being too firm. - Retest on 05/26 still negative. - Imodium and probiotic - Improved by 05/27 (4) Chronic atrial fibrillation: Rate controlled with Toprol XL 50mg daily. - Restarted Eliquis on 05/26 (5) Diabetes mellitus: A1c was 5.8% in 12/2018, but up to 7.6% on this admission. - Continue basal insulin. - Sliding scale coverage. - ADA diet (6) CKD (chronic kidney disease) stage 3, GFR 30-59 ml/min: Baseline Cr has varied significantly in last 6 months, but baseline appears to be ~1.3-1.4 with eGFR ~35-40. - Renally-dose medications - Avoid nephrotoxins - Monitor Cr while on vanc (7) CAD (coronary artery disease): No indication of current CAD issues. - Continue current medical management (8) CHF (congestive heart failure): Diastolic. Stable. No exacerbation. - Continue current medical management (9) DVT prophylaxis: Apixaban Subjective Feels well today from initial infection standpoint. Labial swelling and pain improved. Right arm is more painful today though. Review of Systems Review of Systems: All systems reviewed & are unremarkable except as noted in HPI & below Physical Exam Constitutional: WD/WN, vitals as above Eyes: EOM intact bilaterally; no conjunctival abnormality ENMT: external ear and nose normal, oropharynx normal Neck: trachea midline, no thyromegaly normal visual inspection Respiratory: normal respiratory effort, lungs clear to auscultation no respiratory distress Cardiovascular: RRR, no murmur, no edema Gastrointestinal (Abdomen): Inspection/Auscultation: abdomen normal to inspe ction; abdomen not distended Musculoskeletal: no cyanosis or clubbing, extremities motor strength 5/5 Skin: + erythema (Right arm) Neurologic: moves all extremities and awake Psychiatric: Orientation: alert, oriented to person and cooperative Genitourinary: + external swelling (Right labrium is swollen, red, and indurated. Mildly improved.) Results & Data Vital Signs (Past 12 Hours) Vital Signs Temp Pulse Resp BP Pulse Ox 05/27/19 07:16 37.1 C 70 18 117/66 93 PG Care Time/CCT Total # of Minutes Spent Total Time Spent with Patient: Total time spent is greater than 50% in coordi nation of care (as documented) at patient's floor/unit and/or counseling patient:
[2019-05-27] MEDS ORDERED: VANCOMYCIN HCL 2,250 MG in SODIUM CHLORIDE 0.9% 500 ML IV SCH (14:30)
--- NOTE | 2019-05-27 14:40 | Pharmacy Report ---
Pharmacy Abx Initial Consult - Date of Service May 27, 2019 - Pharmacy Dosing Scope Date of Consult: 05/27/19 Consultation requested by: Dr. Tai Kam Pharmacy is consulted to initiate Vancomycin IV dosing therapy, order appropriate labs and adjust drug dose/frequency. - Subjective The patient is a 73 year old F admitted on 05/24/19 19:21. - Objective Height: 5 ft 8 in Weight: 102.9 kg Vital Signs (Past 12hrs): Vital Signs Temp Pulse Resp BP Pulse Ox 05/27/19 07:16 37.1 C 70 18 117/66 93 Lab Results (24hrs): Laboratory Tests (24 Hours) 05/27/19 05/27/19 05/27/19 05:35 05:35 05:35 WBC 9.42 Neut # (Auto) 7.74 H Creatinine 1.71 H Est Cr Clr Drug Dosing 36.2 Total Creatine Kinase 84 Micro Results: 05/24/19 18:45 Gram Stain - Final Labia - Assessment & Plan Assessment 73 year old F admitted for labial abscess or simple cellulitis. She was started on Rocephin and Flagyl and this is currently ongoing. Today patient developed R arm cellulitis. Vancomycin ordered in addition for MRSA coverage. Labial wound culture grew Group F strep, G + cocci, Bacteroides. Sensitivity info on Bacteroides is not currently available but Metronidazole should provide adequate coverage. Plan Vancomycin for treatment of R arm cellulitis. Vancomycin IV * Estimated PK Parameters: Vd 0.7 L/kg, Jun 0.034 hr-1, t1/2 20.4 hr * Loading dose: Vanco 2250 mg (21.9 mg/kg) x1 ordered for 1430 today. * Maintenance dose: Vanco 1250 mg IV ( 12.1 mg/kg) every 24 hours * Goal trough level for Cellulitis: ~15 mcg/mL * Trough Vanco level ordered for 05/30/19 before dose at 1000. * A less than traditional dose have been selected due to likelihood of drug accumulation in obese patient with h/o CKD. Pharmacy will continue to follow and will adjust dose/frequency as necessary. Thank you.
[2019-05-27] MEDS: ACETAMINOPHEN 325 MG TAB PO PRN (21:11)
[2019-05-27] MEDS: INSULIN HUMAN NPH SC SCH (21:11)
[2019-05-27] MEDS: AMITRIPTYLINE HCL 50 MG TAB PO SCH (21:12)
[2019-05-28] MEDS: ACETAMINOPHEN 325 MG TAB PO PRN (01:02)
[2019-05-28 06:04] LABS: Hematocrit (blood only) 28.5 % (37-47); Hemoglobin 9.1 g/dL (12.0-16.0); Mean Corpuscular Hgb Conc 31.9 g/dL (32-36); Mean Corpuscular Volume 86.9 fL (80-100); Mean Platelet Volume 9.1 fL (7.4-10.4); Platelet Count 197 K/uL (130-400); RDW Coefficient of Variation 16.3 % (11.5-14.5); RDW Standard Deviation 52.2 fL (36.4-46.3); Red Blood Count 3.28 M/uL (4.2-5.4); White Blood Count 7.35 K/uL (4.8-10.8)
[2019-05-28 06:40] LABS: BUN Creatinine Ratio 27.1 (10-20); Calcium 9.2 mg/dl (8.5-10.1); Creatinine Clr Calc Pharmacy 36.2 ml/min; Est GFR (African American) 33.6; Magnesium 2.1 mg/dl (1.8-2.4); Potassium 3.4 mmol/L (3.5-5.1)
[2019-05-28] MEDS: APIXABAN 5 MG TABLET PO SCH (07:59)
[2019-05-28] MEDS: SACCHAROMYCES BOULARDII 250 MG CAP PO SCH (07:59)
[2019-05-28] MEDS: DICLOFENAC SOD 1% GEL 100 GM TUBE EXT SCH ×2 (07:59→14:11)
[2019-05-28] MEDS: metroNIDAZOLE 500 MG TAB PO SCH ×2 (08:00→14:11)
[2019-05-28] MEDS: ALLOPURINOL 100 MG TAB PO SCH (08:01)
[2019-05-28] MEDS: CHOLECALCIFEROL 1,000 UNITS TAB PO SCH (08:02)
[2019-05-28] MEDS: FUROSEMIDE 80 MG TAB PO SCH (08:02)
[2019-05-28] MEDS: SPIRONOLACTONE 25 MG TAB PO SCH (08:02)
[2019-05-28] MEDS: METOPROLOL SUCC 50MG EXT REL TAB PO SCH (08:03)
[2019-05-28] MEDS: POTASSIUM CHLORIDE 20 MEQ TABCR PO SCH ×2 (08:04→14:11)
[2019-05-28] MEDS: MAGNESIUM CHLORIDE 64MG DELAYED REL TAB PO SCH ×2 (08:05→14:12)
[2019-05-28] MEDS: FERROUS SULFATE 325 MG TAB PO SCH (08:05)
[2019-05-28] MEDS: ROSUVASTATIN CALCIUM 20 MG TAB PO SCH (08:06)
[2019-05-28] MEDS: ROPINIROLE HCL 5 MG TABLET PO SCH (08:06)
[2019-05-28] MEDS: HydrALAZINE TAB 50 MG TAB PO SCH ×2 (08:07→14:11)
[2019-05-28] MEDS: cefTRIAXone SODIUM 2,000 MG in DEXTROSE 5% 50 ML IV SCH (08:08)
[2019-05-28] MEDS: INSULIN DETEMIR FLEXPEN/FLEX TOUCH 100 UNITS/ML 3ML SC SCH (08:26)
[2019-05-28] MEDS: INSULIN ASPART 100 UNITS/ML 3 ML PEN SC SCH ×2 (08:46→12:16)
[2019-05-28] MEDS ORDERED: VANCOMYCIN HCL 1,250 MG in SODIUM CHLORIDE 0.9% 250 ML IV SCH (10:00)
--- NOTE | 2019-05-28 15:58 | Discharge Summary ---
Date of Service May 28, 2019 Admission HPI Per Admitting Provider 73-year-old diabetic female with heart disease who has nausea, fever, right labial swelling and tenderness for several days. She has a large right labial abscess with minimal drainage. There is some surrounding cellulitis. There does not appear to be any gangrenous changes or skin breakdown at this time. White count is 17,400. She was administered intravenous Rocephin and Flagyl in the ED. SYSTEMS OPERATOR consultation is pending. She is admitted for further evaluation and treatment. Principal Diagnosis Labial cellulitis Discharge Exam Constitutional WD/WN, vitals as above Eyes EOM intact bilaterally; no conjunctival abnormality ENMT external ear and nose normal, oropharynx normal Neck trachea midline, no thyromegaly normal visual inspection Respiratory normal respiratory effort, lungs clear to auscultation no respiratory distress Cardiovascular RRR, no murmur, no edema Gastrointestinal (Abdomen) Inspection/Auscultation: abdomen normal to inspection; abdomen not distended Musculoskeletal no cyanosis or clubbing, extremities motor strength 5/5 Skin no rashes, warm and dry + erythema (Right arm) Neurologic moves all extremities and awake Psychiatric Orientation: alert, oriented to person and cooperative Genitourinary + external swelling (Right labrium is swollen, red, and indurated. Mildly improved.) Discharge Data Allergies Allergy/AdvReac Type Severity Reaction Status Date / Time NSAIDS (Non-Steroidal Allergy Unknown UNK? Verified 05/24/19 17:50 Anti-Inflamma DENIES SOB. capsaicin AdvReac Severe SHORTNESS Verified 05/24/19 17:50 OF BREATH diclofenac AdvReac Severe SHORTNESS Verified 05/24/19 17:50 OF BREATH Diclopak AdvReac Severe SHORTNESS Verified 07/24/18 10:57 OF BREATH Consultations 05/24/19 18:57 ED Decision to Admit Stat 05/24/19 19:58 Consult Gynecology Routine Ordered Studies 05/24/19 17:30 CT head/brain wo con Stat 05/24/19 17:32 CT abd pelvis wo con Stat 05/27/19 11:02 US extremity nonvascular Urgent Hospital Course (1) Abscess of right genital labia: Unclear if there was ever an abscess vs. simple cellulitis. I&D was attempted in the ED on 05/24; however, no purulent material was expressed per ED physician notes. Nonetheless, a sample was collected and sent to the lab. - Culture done on 05/24 - Grew Group F beta-hemolytic Strep, Gram(+) cocci (unidentified), and Bacteroides thetaiotaomicron. - On ceftriaxone & metronidazole per automotive shop foreman while in the hospital - Discharged on 10-day course of cefdinir and metronidazole. - Will follow up with automotive shop foreman in 2-3 weeks. Number for appt given. (2) Right arm cellulitis: Right arm with new area of redness and pain on 05/27. Appeared to be cellulitic in nature. U/S of the area on 05/27 showed only mild swelling. - Given 2 doses of vanc for MRSA coverage. - By 05/28, swelling had already gone down and the pain was essentially gone. In mutual discussion with the patient, she preferred to hold off on further MRSA- coverage. She was already going to take 2 antibiotics for her labial swelling and did not want a third. Given it resolved with <18 hours, it is possible this was merely skin irritation from her sliding scale injections. - She will closely watch the area. If the redness or pain returns, she will call her PCP caroline. (3) Diarrhea: Had episode of C. diff in 11/2018 with diarrhea never really resolving per patient. - Still toxin-positive on retest on 12/11/2018, but negative on 12/30/2018. On 01/12/2019, sample was rejected for being too firm. - Retest on 05/26 still negative. - Imodium and probiotic - Improved by 05/27 (4) Chronic atrial fibrillation: Rate controlled with Toprol XL 50mg daily. - Restarted Eliquis on 05/26 (5) Diabetes mellitus: A1c was 5.8% in 12/2018, but up to 7.6% on this admission. - Continued basal insulin. - Sliding scale coverage. - ADA diet (6) CKD (chronic kidney disease) stage 3, GFR 30-59 ml/min: Baseline Cr has varied significantly in last 6 months, but baseline appears to be ~1.3-1.4 with eGFR ~35-40. - Renally-dose medications - Avoid nephrotoxins - Monitor Cr while on vanc - Remained stable ~1.7. Will recheck with her PCP or Dr. Roman at next visit. (7) CAD (coronary artery disease): No indication of current CAD issues. - Continue current medical management (8) CHF (congestive heart failure): Diastolic. Stable. No exacerbation. - Continue current medical management Total Time Total Time Spent Total Time Spent (In Minutes): 35 Discharge Plan Discharge Items Patient Disposition: Home - Self-Care Reason For Visit: LABIAL ABSCESS Discharge Diagnosis: Labial abscess Discharge Goals: Decrease discomfort and Diagnostic testing Activity: Resume your previous activity Non-emergency contact: Primary Care Provider Call non-emergency contact if: your symptoms worsen, your pain is not controlled and your temperature is above 100.5 Follow-up/Referrals: Helen Mata MD, FACOG [Physician] - (Please call [phone] to get an appointment with Dr. Villatoro, Dr. Anderson, or Dr. Dyer in 2-3 weeks.) Jaquelin Crowley MD [Primary Care Provider] - 06/02/19 11:40 am (follow up appointment with your primary care physician) Diet: Carb Consistent or DM2 Addtl Provider Instructions: You were admitted to the hospital with an infection of the right groin. We gave you IV antibiotics which help improve the infection. We are giving you 10 more days of antibiotics to help fully treat the infection. Please see the Road Packer Operator doctors in follow up in 2-3 weeks for a check-up. Please watch your right arm. We were worried about a tweaked muscle or possibly a skin infection. It was looking better before your discharge, so we are not adding another antibiotic; however, you will need to call your PCP right away if it starts to get worse. Prescriptions: New metronidazole 500 mg tablet 500 mg PO BID Qty: 20 RF: 0 cefdinir 300 mg capsule 300 mg PO BID 10 Days Qty: 20 RF: 0 Continued albuterol sulfate [ProAir HFA] 90 mcg/actuation HFA aerosol inhaler 1 - 2 puffs INH Q4H PRN (Reason: Shortness Of Breath Or Wheezing) RF: 0 allopurinol [Zyloprim] 100 mg tablet 200 mg PO QAM RF: 0 furosemide 80 mg tablet 120 mg PO BID RF: 0 hydralazine 50 mg tablet 50 mg PO TID RF: 0 nitroglycerin [Nitrostat] 0.4 mg tablet, sublingual 0.4 mg SL UD PRN (Reason: Chest Pain) RF: 0 ropinirole [Requip] 5 mg tablet 5 mg PO BID RF: 0 rosuvastatin [Crestor] 40 mg tablet 40 mg PO QAM RF: 0 spironolactone 25 mg tablet 25 mg PO QAM RF: 0 apixaban [Eliquis] 5 mg tablet 5 mg PO BID RF: 0 cholecalciferol (vitamin D3) [Vitamin D3] 2,000 unit Tablet 2,000 unit PO QAM RF: 0 potassium chloride 20 mEq tablet,ER particles/crystals 20 meq PO TID RF: 0 metoprolol succinate 50 mg tablet extended release 24 hr 50 mg PO QAM RF: 0 Novolog U-100 Insulin aspart 100 unit/mL solution 25 unit subcut QAM RF: 0 Novolin N NPH U-100 Insulin 100 unit/mL suspension 10 units subcut HS RF: 0 Levemir U-100 Insulin 100 unit/mL solution 30 units subcut BID RF: 0 amitriptyline 50 mg tablet 50 mg PO HS RF: 0 acetaminophen [Tylenol Extra Strength] 500 mg Tablet 500 mg PO Q6H PRN (Reason: Pain) RF: 0 Novolog U-100 Insulin aspart 100 unit/mL solution 20 unit subcut BID RF: 0 ferrous sulfate [iron] 325 mg (65 mg iron) Tablet 325 mg PO QAM RF: 0 magnesium chloride 64 mg Tablet,Delayed Release (Dr/Ec) 64 mg PO TID RF: 0 Stand-Alone Forms: [facility] Discharge Orders: Discharge Order (Routine); Ordered 05/28/19 Ordered By: Tai Kam Admission Data Admit Date/Time: 05/24/19 19:21 Attending Provider: Tai Kam Admit Provider: Derrick Doss Primary Care Provider: Jaquelin Crowley V. Other Providers: Helen Mata ; Tai Kam Service: Medical Other Interventions: Discharge Summary Assessment (RN) Last Done: 05/28/19 12:44 DC Date/Time DO NOT enter until pt leaves facility: 05/28/19 14:22
[2019-05-30] MEDS ORDERED: VANCOMYCIN TROUGH ONE (09:30)
== END 2019-05-28 14:22 | disposition home or self-care (01) | DRG 746 ==
LOC: ED 17:13 → SUATTDRO 19:21 → 4E 19:21

== ENCOUNTER 2019-07-16 23:13 | Inpatient (IN) ==
[2019-07-16] MEDS ORDERED: GABAPENTIN 100 MG CAP PO STA (23:25)
[2019-07-16 23:43] LABS: Basophils # (auto) 0.01 K/uL (0-0.2); Basophils % (auto) 0.1 %; Hematocrit (blood only) 33.6 % (37-47); Hemoglobin 10.8 g/dL (12.0-16.0); Immature Granulocytes # (auto) 0.22 K/uL (0.00-0.02); Immature Granulocytes % (auto) 1.7 %; Lymphocytes # (auto) 1.11 K/uL (1.2-3.4); Lymphocytes % (auto) 8.4 %; Mean Corpuscular Hgb Conc 32.1 g/dL (32-36); Mean Corpuscular Volume 88.2 fL (80-100); Mean Platelet Volume 8.8 fL (7.4-10.4); Monocytes # (auto) 1.05 K/uL (0.11-0.59); Monocytes % (auto) 7.9 %; Neutrophils # (auto) 10.86 K/uL (1.4-6.5); Neutrophils % (auto) 81.9 %; Platelet Count 229 K/uL (130-400); RDW Coefficient of Variation 16.2 % (11.5-14.5); Red Blood Count 3.81 M/uL (4.2-5.4); White Blood Count 13.25 K/uL (4.8-10.8)
[2019-07-17 00:02] LABS: Albumin Level 3.4 gm/dl (3.4-5.0); BUN Creatinine Ratio 49.4 (10-20); Calcium 8.4 mg/dl (8.5-10.1); Creatinine Clr Calc Pharmacy 35.4 ml/min; Est GFR (African American) 37.3; Est GFR (Non-African American) 32.1; Magnesium 2.7 mg/dl (1.8-2.4); Potassium 4.1 mmol/L (3.5-5.1)
[2019-07-17 00:13] LABS: Albumin Globulin Ratio 0.9 (0.9-2); Bilirubin,Total 0.6 mg/dl (0.2-1); Globulin 3.6 gm/dl (2.5-4.0)
[2019-07-17 00:18] LABS: Appearance Urine Cloudy (Clear); Bacteria Urine Automated Negative (Negative); Bilirubin Urine Negative (Negative); Blood Urine Negative (Negative); Color Urine Yellow; Epithelial Cell Urine Auto >30 /lpf (0-5); Glucose Urine UA Negative (Negative); Ketones Urine Negative (Negative); Leukocyte Esterase Urine Negative (Negative); Nitrite Urine Negative (Negative); Protein Urine Trace (Negative); Urobilinogen Urine Negative (Negative)
[2019-07-17] MEDS ORDERED: ROPINIROLE HCL 5 MG TABLET PO STA ×2 (01:34→02:18)
--- NOTE | 2019-07-17 03:36 | History & Physical Report ---
Date of Service July 17, 2019 Assessment & Plan (1) Lower extremity weakness: 73-year-old female was admitted on 17 July 2019 for bilateral leg weakness and lumbar spinal stenosis Bilateral leg weakness, lumbar spinal stenosis (see MRI Nov 2018): See primary care note on 08Aug at which time she was started on a Medrol Dosepak. Has seen Dr. Capone of PM&R before for local injections. Was on track to see Dr. Kramer of orthopedic spine surgery. Notes left > right leg weakness and recent falls. - In ED, afebrile, not tachycardic or tachypneic, moderately hypertensive, with normal room SpO2. WBC 13 (may be related to recent prednisone use). UA is a dirty specimen. Acute MRI of lumbar spine (overnight read) notes no acute fracture, positive multilevel degenerative disc disease and lumbar spondylosis with multilevel severe spinal canal stenosis, no disc herniation, and no abno rmal distal cord signal. - In ED, given gabapentin. - Will consult orthopedic surgery for further evaluation. On home amitriptyline. Lower extremity abrasions: Status post fall. Will apply Vaseline and monitor for s/s local infection. Hypermagnesemia: Admit Mg 2.7. At home is on magnesium three times daily but patient is unsure why. - Will hold this temporarily and order recheck for a.m. Ongoing medical issues: - Hypertension, hyperlipidemia, CAD, [place], CABG x2 vessels, aortic stenosis, chronic diastolic CHF: Echocardiogram and September 2017 noted EF 50-55%, moderate biventricular dilatation, moderate , along with other valvular issues (see full report). Continue home Lasix, hydralazine, metoprolol, Crestor, spironolactone, potassium. - Permanent atrial fibrillation: Rate controlled. Will temporarily hold home Eliquis. - Diabetes with neuropathy: At home is on insulin NovoLog, Novolin, and Levemir 30 units twice daily. --- Ordered pharmacy glycemic consult. - CKD: Admit creatinine 1.57, lower than recent baseline. - COPD, pulmonary nodules, lung cancer s/p resection: Is not on any chronic maintenance meds. Albuterol as needed. - Toxic multinodular goiter: Admit TSH 0.046. - Obesity: BMI 34. - Sleep apnea: Continue CPAP use. - Chronic anemia, history of GI bleed: Admit hemoglobin 10.8, higher than recent 9s. No reports of recent bleeding. - Gout: Continue home allopurinol. - Restless leg syndrome: Continue home ropinirole. - Chronic urinary incontinence: Previously thought to be related to taking Lasix. Code status: Full code. Diet: DM2, heart healthy. DVT prophy: Will temporarily hold Eliquis. Ordered SCDs. PT/OT: Ordered. Disbo: Admit to MedSurg. (2) Spinal stenosis: (3) Abrasions of multiple sites: (4) Hypermagnesemia: (5) HTN (hypertension): (6) Hyperlipidemia: (7) CAD (coronary artery disease): (8) Aortic stenosis: (9) CHF (congestive heart failure): (10) Chronic atrial fibrillation: (11) Diabetic nephropathy: (12) Diabetes mellitus: (13) CKD (chronic kidney disease) stage 3, GFR 30-59 ml/min: (14) Chronic obstructive pulmonary disease: (15) Nontoxic multinodular goiter: (16) Obesity: (17) Sleep apnea: (18) Anemia: (19) Gout: (20) Restless leg syndrome: (21) Urinary incontinence: History of Present Illness Primary Care Provider: Jaquelin Crowley MD 73-year-old female is accompanied by her requesting further evaluation of bilateral leg weakness. She has had known lumbar stenosis since at least November 2018. She has been seen by her primary care provider as well as Dr. Capone of PM&R to include two local steroid injections, most recently this past summer. She says she was seen in her primary care clinic on July 09 when she was placed on a prednisone taper. She notes no improvement of her symptoms with the steroids but does note her blood sugar became much higher. Steroids have since been completed. She presents overnight stating that she had three "falls" throughout the past 24 hours. They were not falls per se, but more the sense that her legs could not support her weights such that she ended up falling towards the ground. She says she sustained abrasions to her feet and right knee because of this. Denies any more serious direct trauma, focal pains, or passing out. She says she is on track to seen Dr. Kramer of orthopedic spine surgery on August 13 but says her symptoms have been worsening quite a bit since scheduling that appointment. She denies any acute changes in bowel or bladder function, numbness around her bottom, fevers or feeling of recent infection, pains elsewhere, or any other acute concerns. - Past medical history includes hypertension, hyperlipidemia, CAD, GA, aortic stenosis, chronic diastolic CHF, permanent atrial fibrillation, diabetes type 2 with neuropathy, CKD, COPD, pulmonary nodules, lung cancer, toxic multinodular goiter, obesity, sleep apnea, carcinoid tumor, chronic anemia, history of GI bleed, gout, restless leg syndrome, urinary incontinence, fatty liver, TIA. - Past surgical history includes left toe amputation, hysterectomy, bilateral knee replacement, appendectomy, CABG. - Social history includes former smoker. Denies alcohol use. Lives at home with . Allergies Allergy/AdvReac Type Severity Reaction Status Date / Time NSAIDS (Non-Steroidal Allergy Unknown UNK? Verified 07/17/19 00:21 Anti-Inflamma DENIES SOB. capsaicin AdvReac Severe SHORTNESS Verified 07/17/19 00:21 OF BREATH diclofenac AdvReac Severe SHORTNESS Verified 07/17/19 00:21 OF BREATH Diclopak AdvReac Severe SHORTNESS Verified 07/24/18 10:57 OF BREATH Home Medications Home Medications Medication Instructions Recorded Confirmed Type albuterol sulfate HFA 90 1 - 2 puffs INH Q4H PRN gm 07/30/18 07/20/19 History mcg/actuation aerosol inhaler allopurinol 100 mg tablet 200 mg PO QAM tab 07/30/18 07/17/19 History hydralazine 50 mg tablet 50 mg PO TID 07/30/18 07/17/19 History nitroglycerin 0.4 mg sublingual 0.4 mg SL UD PRN tab 07/30/18 07/20/19 History tablet rosuvastatin 40 mg tablet 40 mg PO QAM tab 07/30/18 07/17/19 History spironolactone 25 mg tablet 25 mg PO QAM tab 07/30/18 07/17/19 History cholecalciferol (vitamin D3) 2,000 unit PO QAM 10/13/18 07/17/19 History [Vitamin D3] potassium chloride 20 meq PO TID 10/13/18 07/17/19 History Levemir U-100 Insulin 30 units SUBCUT BID 11/08/18 07/17/19 History Novolin N NPH U-100 Insulin 10 units SUBCUT HS 11/08/18 07/17/19 History acetaminophen [Tylenol Extra 500 mg PO Q6H PRN 05/24/19 07/20/19 History Strength] amitriptyline 50 mg PO HS 05/24/19 07/17/19 History magnesium 64 mg (magnesium 64 mg PO TID tab 06/02/19 07/17/19 History chloride) tablet,delayed release apixaban 5 mg tablet 5 mg PO BID #180 tab 06/18/19 07/17/19 Rx metoprolol succinate ER 50 mg 50 mg PO QAM #90 tab 06/18/19 07/17/19 Rx tablet,extended release 24 hr insulin syringe U-100 with needle #300 ea 07/15/19 07/17/19 Rx 1 mL 30 gauge x 04/16" furosemide 80 mg tablet 120 mg PO BID #90 tab 07/16/19 07/17/19 Rx insulin aspart U- 100 100 unit/mL See Rx Instructions .ROUTE 07/16/19 07/17/19 Rx subcutaneous solution .COMPLEX #70 milliliter blood sugar diagnostic strips #150 ea 07/17/19 Rx ropinirole 5 mg PO QAM 07/17/19 07/17/19 History ropinirole 10 mg PO HS 07/17/19 07/17/19 History Past Med/Surg History Medical History Neuropathic ulcer of toe of right foot (Acute) 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 CORTES CAD (coronary artery disease) CHF (congestive heart failure) Chronic atrial fibrillation Chronic kidney disease FOLLOWS W/ DR. SHAY Chronic obstructive pulmonary disease Clostridium difficile infection DX [facility] 11/2018 - TREATED - REPORTS CONTINUED DIARRHEA - STOOL SPECIMEN PROVIDED TO PCP OFFICE 01/12/19. RESULTS PENDING Diabetes mellitus Diabetes mellitus, type 2 IDDM Diabetic foot ulcer associated with type 2 diabetes mellitus Fatty liver Gout Hallux valgus (acquired), left foot History of hypotension Lumbar spinal stenosis Severe at L4-5 Lung cancer S/P SURGERY Myocardial Infarction 2012 Osteoarthritis Restless leg syndrome Sleep apnea CPAP Status post amputation of toe of left foot Syncope Transient ischemic attack (TIA) 2006 Type 2 diabetes mellitus with diabetic neuropathy Surgical History H/O: hysterectomy History of amputation LEFT 3RD TOE History of appendectomy History of appendectomy History of bilateral knee replacement History of bronchoscopy History of cardiac cath 2012 - [facility] [place] - NO STENTS/ANGIOPLASTY -- > CABG - FOLLOWS W/ DR. CORTES History of cholecystectomy History of colonoscopy 11/2018 [facility] History of esophagogastroduodenoscopy (EGD) 11/2018 [facility] History of hysterectomy with oophorectomy History of lobectomy of lung RML History of ovarian cystectomy History of surgery VATS PROCEDURE History of total knee replacement BL History of tubal ligation Hx of CABG 2012 - [place] - 2 VESSELS - FOLLOWS W/ DR. CORTES Family History Daughter Family history of diabetes mellitus Mother Heart disease Hypertension Myocardial infarction Father Hypertension Social History Preferred Language: Slovenian Communication Ability: Effective Visual Impairment: No Limitations Hearing Ability: Normal Helix Coil Winder Required: No Beliefs That Will Affect Care: Sabianism marital status: Current Living Situation: Spouse Feels Safe at Home: Yes Smoking Status: Former smoker Tobacco Type: cigarettes ; Cigarettes Per Day: 10 ; Second Hand Exposure: No ; Hx Alcohol Use: No Hx Substance Use: No Review of Systems Review of Systems: Constitutional: Denies fevers, chills. Eyes: Denies any visual loss or diplopia ENT: Denies any ear/nose/throat pain or difficulty speaking or swallowing Respiratory: Denies any dyspnea, cough, hemoptysis Cardiovascular: Denies any chest pain or feeling of edema Gastrointestinal: Denies any abdominal pain, nausea/vomiting/diarrhea Musculoskeletal: Denies any acute extremity pains, myalgias. Positive worsening left greater than right lower extremity weakness. Skin: Positive multiple abrasions to legs status post fall. Otherwise no acute rashes or patient concerns. Neuro: Denies any headache or difficulties with speech or swallow. Positive numbness in left greater than right lower extremities. Hematologic: Denies any recent bleeding or bruising, but is on Eliquis. Physical Exam Physical Exam: GENERAL: Awake, alert, well-appearing, in no acute distress HENT: Normocephalic, atraumatic. Oropharynx unremarkable. EYES: Normal conjunctiva. Sclera non-icteric. NECK: Inspection normal. Non-tender. Supple and full ROM. No nuchal rigidity. CARDIAC: +S1S2 RRR, no murmurs. RESPIRATORY: Clear to auscultation. No wheezes or rales. Normal respiratory effort. GI: +BS, soft, non-distended. No tenderness to palpation. No rebound or guarding. No appreciable masses. EXTREMITIES: - Grossly, strength in the left lower extremity is about 4/5 and strength in the right lower extremity is 5-/5. Particularly worse on left toe extension and lifting legs off of the bed. -Decreased sensation throughout the entire left lower extremity up to about the hip. - Decreased sensation in the right lower extremity primarily in the foot and ankle and less so in the calf. - Abrasion over the right patella without present bleeding or drainage. No significant surrounding erythema. Well-healed bilateral TKA scars. - Multiple superficial abrasions over the bilateral feet. Results & Data Vital Signs (Past 12 Hours) Vital Signs Temp Pulse Pulse Resp BP BP Pulse Ox 07/17/19 01:25 64 18 170/76 H 98 07/16/19 23:16 36.5 C 82 20 160/93 H 96 Laboratory Results 07/17/19 07/16/19 07/16/19 Range/Units 00:03 23:33 23:32 WBC 13.25 H (4.8-10.8) K/uL RBC 3.81 L (4.2-5.4) M/uL Hgb 10.8 L (12.0-16.0) g/dL Hct 33.6 L (37-47) % MCV 88.2 (80-100) fL MCH 28.3 (25-34) pg MCHC 32.1 (32-36) g/dL RDW Std Deviation 52.0 H (36.4-46.3) fL RDW Coeff of Lelo 16.2 H (11.5-14.5) % Plt Count 229 (130-400) K/uL MPV 8.8 (7.4-10.4) fL Immature Gran % (Auto) 1.7 % Neut % (Auto) 81.9 % Lymph % (Auto) 8.4 % [place] % (Auto) 7.9 % Eos % (Auto) 0.0 % Baso % (Auto) 0.1 % Immature Gran # (Auto) 0.22 H (0.00-0.02) K/uL Neut # (Auto) 10.86 H (1.4-6.5) K/uL Lymph # (Auto) 1.11 L (1.2-3.4) K/uL [place] # (Auto) 1.05 H (0.11-0.59) K/uL Eos # (Auto) 0.00 (0-0.5) K/uL Baso # (Auto) 0.01 (0-0.2) K/uL Sodium 142 (136-145) mmol/L Potassium 4.1 (3.5-5.1) mmol/L Chloride 108 H (98-107) mmol/L Carbon Dioxide 28 (21-32) mmol/L Anion Gap 5.0 (3-11) BUN 78 H (7-18) mg/dl Creatinine 1.57 H (0.6-1.2) mg/dl Est Cr Clr Drug Dosing 35.4 ml/min Est GFR ( Amer) 37.3 Est GFR (Non-Af Amer) 32.1 BUN/Creatinine Ratio 49.4 H (10-20) Glucose 162 H (70-99) mg/dl Calcium 8.4 L (8.5-10.1) mg/dl Magnesium 2.7 H (1.8-2.4) mg/dl Total Bilirubin 0.6 (0.2-1) mg/dl AST 29 (15-37) U/L ALT 47 (12-78) U/L Alkaline Phosphatase 68 (45-117) U/L Total Protein 7.0 (6.4-8.2) gm/dl Albumin 3.4 (3.4-5.0) gm/dl Globulin 3.6 (2.5-4.0) gm/dl Albumin/Globulin Ratio 0.9 (0.9-2) TSH 0.046 L (0.300-4.500) uIu/ml Urine Color Yellow Urine Appearance Cloudy A (Clear) Urine pH 5.0 (4.5-7.5) Ur Specific [place] 1.020 (1.000-1.030) Urine Protein Trace H (Negative) Urine Glucose (UA) Negative (Negative) Urine Ketones Negative (Negative) Urine Blood Negative (Negative) Urine Nitrite Negative (Negative) Urine Bilirubin Negative (Negative) Urine Urobilinogen Negative (Negative) Ur Leukocyte Esterase Negative (Negative) Urine WBC (Auto) 5-10 H (0-5) /hpf Urine RBC (Auto) 5-10 H (0-4) /hpf U Hyaline Cast (Auto) 5-10 H (0-5) /lpf U Epithel Cells (Auto) >30 H (0-5) /lpf Urine Bacteria (Auto) Negative (Negative) Ur Renal Epithelial Cell Not Reportable Granular Casts 1-5 H (0) /lpf Medications Administered Discontinued Medications Gabapentin (Neurontin) 100 mg PO NOW STA Stop: 07/16/19 23:26 Last Admin: 07/16/19 23:34 Dose: 100 mg Documented by: [id number] Ropinirole HCl (Requip) 5 mg PO NOW STA Stop: 07/17/19 01:35 Last Admin: 07/17/19 01:43 Dose: 5 mg Documented by: [id number] Ropinirole HCl (Requip) 5 mg PO NOW STA Stop: 07/17/19 02:19 Last Admin: 07/17/19 02:56 Dose: 5 mg Documented by: [id number] Code Status & VTE Plan Code Status Full code VTE Prophylaxis Plan VTE Prophylaxis will be ordered: Yes Supervising Physician Co-Signing Physician Notes I reviewed above note and agree with it. During my face to face encounter with patient, I performed a history and physical examination. I answered all of the patient's questions. will consult ortho for further eval as patient is having lower extremity weakness and is not responding to steroids. PG Care Time/CCT Total # of Minutes Spent Total Time Spent with Patient: Total time spent is greater than 50% in coordination of care (as documented) at patient's floor/unit and/or counseling patient: Resident Activity Tracking Resident Involvement: Resident Care Provided Care Provided: Adult Hospital Medicine (1) Anemia Anemia type: unspecified type Qualified Code(s): D64.9 - Anemia, unspecified (2) Spinal stenosis Spinal region: unspecified Qualified Code(s): M48.00 - Spinal stenosis, site unspecified
[2019-07-17] MEDS ORDERED: ACETAMINOPHEN 500 MG TAB PO PRN (06:06)
[2019-07-17] MEDS ORDERED: NITROGLYCERIN SL 0.4 MG/TAB TAB SL PRN (06:06)
[2019-07-17] MEDS ORDERED: ALBUTEROL HFA 8 GM INHALER INH PRN (06:06)
[2019-07-17] MEDS ORDERED: PHARMACY GLYCEMIC MGMT CONSULT PRN (06:26)
[2019-07-17] MEDS ORDERED: GLUCAGON FOR INJ 1 MG VIAL IM PRN (07:00)
[2019-07-17] MEDS ORDERED: GLUCOSE 10 TABS/TUBE PO PRN (07:00)
[2019-07-17] MEDS ORDERED: CARBOHYDRATES FOR HYPOGLYCEMIA PO PRN (07:00)
[2019-07-17] MEDS ORDERED: GLUCOSE 40% GEL 15 GM TUBE PO PRN (07:00)
[2019-07-17] MEDS ORDERED: DEXTROSE 50% 50 ML SYRINGE IV PRN (07:00)
--- NOTE | 2019-07-17 07:10 | Magnetic Resonance Report ---
MR lumbar spine wo con CLINICAL HISTORY: 73 years-old Female presenting with weakness, falls, known spinal stenosis, history of lung cancer. TECHNIQUE: Multisequence, multiplanar MR imaging of the lumbar spine was performed without the use of intravenous contrast. IV contrast: None. COMPARISON: 11/08/2018. FINDINGS: Localizer images: Mild levoscoliosis centered at L2-3. Normal lumbar lordosis apart from mild scoliosis. Vertebral bodies demonstrate normal height, alignme nt, bone marrow signal intensity with the exception of a bone island and L3. Diffuse intervertebral d isc desiccation with varying degrees of height loss, greatest at L3-4 eccentrically worse on the righ t due to scoliosis. Additional multilevel degenerative changes further detail below: T12-L1: Disc bulge with mild effacement of the ventral thecal sac. No significant neural foraminal na rrowing. L1-2: Trace disc bulge. Mild left neural foraminal narrowing. No significant spinal canal narrowing. L2-3: Mild disc bulge, which is worse at the level of the neural foramina. Mild facet arthropathy als o noted worse on the right. This results in moderate bilateral left neural foraminal narrowing. Mass effect on the exiting right L2 nerve root suspected. Mild effacement of the ventral thecal sac. Ligam entum flavum hypertrophy and a congenitally narrow spinal canal result in moderate circumferential ef facement of the thecal sac. L3-4: Annular fissure may be present. Congenitally narrow spinal canal is suggested. Mild facet arthr opathy greater on the right. Moderate to severe right and moderate left neural foraminal narrowing. S uspected mass effect on the exiting right L3 nerve root. Moderate circumferential effacement of the t hecal sac. L4-5: Disc bulge and ligamentum flavum thickening and redundancy results in severe focal circumferent ial narrowing of the thecal sac. No evidence of a buckled morphology of the cauda equina though no re sidual CSF is evident at this level. Moderate to severe bilateral neural foraminal narrowing with mas s effect on the bilateral exiting L4 nerve roots. L5-S1: Suspected annular fissure. Disc bulge moderately effaces the paracentral ventral thecal sac. M ild bilateral neural foraminal narrowing. Spinal cord terminates in good position at the superior endplate of L1. Cauda equina normal morpholog y without evidence of buckling. This is despite the severe appearing stenosis at L4-5. No paraspinal muscle edema. No gross evidence of an epidural collection. Flow-voids within the vasculature preserve d. Remaining visualized soft tissues demonstrate dominant left renal cyst. IMPRESSION: 1. Multilevel degenerative changes with severe appearing stenosis at L4-5, however, there is no conv incing evidence of cauda equina impingement. Multilevel neural foraminal narrowing with mass effect o n several exiting nerve roots, again most severe at L4-5. Additional changes as above. Electronically signed by: Jabier Avila M.D. 07/17/2019 7:08 AM
[2019-07-17] MEDS: INSULIN ASPART 100 UNITS/ML 3 ML PEN SC SCH ×4 (08:50→21:14)
[2019-07-17] MEDS: INSULIN DETEMIR FLEXPEN/FLEX TOUCH 100 UNITS/ML 3ML SC SCH ×2 (08:51→21:12)
[2019-07-17] MEDS: ROSUVASTATIN CALCIUM 20 MG TAB PO SCH (08:52)
[2019-07-17] MEDS: CHOLECALCIFEROL 1,000 UNITS TAB PO SCH (08:52)
[2019-07-17] MEDS: POTASSIUM CHLORIDE 20 MEQ TABCR PO SCH ×3 (08:52→21:11)
[2019-07-17] MEDS: FUROSEMIDE 40 MG TAB PO SCH ×2 (08:53→16:43)
[2019-07-17] MEDS: METOPROLOL SUCC 50MG EXT REL TAB PO SCH (08:53)
[2019-07-17] MEDS: ALLOPURINOL 100 MG TAB PO SCH (08:53)
[2019-07-17] MEDS: HydrALAZINE TAB 50 MG TAB PO SCH ×3 (08:53→21:10)
[2019-07-17] MEDS: ROPINIROLE HCL 5 MG TABLET PO SCH ×2 (08:53→21:11)
[2019-07-17] MEDS: SPIRONOLACTONE 25 MG TAB PO SCH (08:53)
--- NOTE | 2019-07-17 09:26 | Pharmacy Report ---
Glycemic Control Consultation - Date of Service July 17, 2019 - Scope Scope: Glycemic Pharmacist consulted by Dr Flores on 07/17 for glycemic control and to write orders per [facility] inpatient glycemic control protocol - Objective Weight: 112.3 kg Accuchecks BSG (last 24hrs): 07/16/19 07/17/19 23:33 08:36 Glucose 162 H POC Glucose 148 H Laboratory Data (last 24hrs): 07/16/19 23:33 Potassium 4.1 Carbon Dioxide 28 Anion Gap 5.0 Creatinine 1.57 H Est Cr Clr Drug Dosing 35.4 - Recent Pertinent Medications Outpatient Anti-diabetic Regimen: * Levemir 30 units BID * NPH 10 units HS * Novolog, up to 240 units/day * A1c = 7.6 % 05/26/19 Risk Factors for Insulin Resistance: * Diet: Type 2 DM - Assessment & Plan Assessment & Plan: ASSESSMENT: * 73 year old female admitted for leg weakness, spinal stenosis, to be seen by orthopedic surgery. * Type 2 diabetic, reports very large doses of bolus insulin at home, will begin with reduced doses for inpatient, as patient only required 55-80 units/day when admitted last November, and titrate to goal blood sugar. * ADA & AACE recommend a goal blood sugar range 140-180 mg/dl for the majority of critically ill & non-critically ill patients. However, more stringent targets may be selected in individual cases. Will utilize more stringent goal of 110-140mg/dl based on patient age & comorbidities. Additionally, tighter glycemic control is warranted to facilitate wound/infection healing. PLAN FOR INPATIENT GLYCEMIC CONTROL: * Basal insulin * Levemir 25 units SQ BID * Bolus insulin * NovoLog per scale ACHS or Q6hrs while NPO * Goal Range: Low 110 mg/dL - High 140 mg/dL * Correction Factor: 15 mg/dL/unit * Nutritional / Prandial insulin per carb ratio of 1 unit per 5 grams CHO consumed * Please note that the plan above was derived based on current level of insulin resistance and hospital stress. These recommendations are appropriate for inpatient admission only. Plan of care upon discharge will need to be reassessed to avoid potential outpatient hypo/hyperglycemia. Thank you.
[2019-07-17 10:16] LABS: Hematocrit (blood only) 33.5 % (37-47); Hemoglobin 10.3 g/dL (12.0-16.0); Mean Corpuscular Hgb Conc 30.7 g/dL (32-36); Mean Corpuscular Volume 89.6 fL (80-100); Platelet Count 187 K/uL (130-400); RDW Coefficient of Variation 16.3 % (11.5-14.5); RDW Standard Deviation 53.7 fL (36.4-46.3); Red Blood Count 3.74 M/uL (4.2-5.4); White Blood Count 10.53 K/uL (4.8-10.8)
[2019-07-17 10:43] LABS: BUN Creatinine Ratio 49.1 (10-20); Calcium 8.5 mg/dl (8.5-10.1); Creatinine Clr Calc Pharmacy 41.1 ml/min; Est GFR (African American) 39.4; Magnesium 2.8 mg/dl (1.8-2.4)
--- NOTE | 2019-07-17 14:45 | Orthopedic Consultation ---
Date of Consultation July 17, 2019 Assessment & Plan (1) Spinal stenosis, lumbar region with neurogenic claudication: This time a lengthy discussion with this patient reviewing her clinical course and MRI findings. She does have severe multilevel spinal stenosis. Her most acute issues appear to be at the L4-5 followed by the L5-S1 level. We could consider surgical intervention. It would require a lumbar decompression fusion involving at least L4-5 L5-S1. Risk benefits pros cons and alternatives were outlined in detail. Clearly she has a significant medical history and would require preop evaluation for medicine and anesthesia. If she would like to pursue surgery would be happy to move forward early next week pending case review from anesthesia and medicine. I will be following patient. Present on Admission?: Yes History of Present Illness Reason for Consultation: Back and leg pain. Attending Physician: Galdino Medina History of Present Illness This is a very pleasant 73-year-old female has had long-standing history of neurogenic claudication secondary to lumbar spinal stenosis. She has had 2 lumbar epidural injections in the past both providing very minimal long-term relief. She presents the emergency room yesterday with a marked decline in st atus with significant weakness in the left lower extremity. She is states she fell 3 times secondary to the legs giving out. She describes pain involving most of the left lower extremity. There is a dense numbness associate with this. It does markedly limit her ability to ambulate. Does not awaken her from sleep. Allergies Allergy/AdvReac Type Severity Reaction Status Date / Time NSAIDS (Non-Steroidal Allergy Unknown UNK? Verified 07/17/19 00:21 Anti-Inflamma DENIES SOB. capsaicin AdvReac Severe SHORTNESS Verified 07/17/19 00:21 OF BREATH diclofenac AdvReac Severe SHORTNESS Verified 07/17/19 00:21 OF BREATH Diclopak AdvReac Severe SHORTNESS Verified 07/24/18 10:57 OF BREATH Home Medications Home Medications Medication Instructions Recorded Confirmed Type albuterol sulfate HFA 90 1 - 2 puffs INH Q4H PRN gm 07/30/18 07/17/19 History mcg/actuation aerosol inhaler allopurinol 100 mg tablet 200 mg PO QAM tab 07/30/18 07/17/19 History hydralazine 50 mg tablet 50 mg PO TID 07/30/18 07/17/19 History nitroglycerin 0.4 mg sublingual 0.4 mg SL UD PRN tab 07/30/18 07/17/19 History tablet rosuvastatin 40 mg tablet 40 mg PO QAM tab 07/30/18 07/17/19 History spironolactone 25 mg tablet 25 mg PO QAM tab 07/30/18 07/17/19 History cholecalciferol (vitamin D3) 2,000 unit PO QAM 10/13/18 07/17/19 History [Vitamin D3] potassium chloride 20 meq PO TID 10/13/18 07/17/19 History Levemir U-100 Insulin 30 units SUBCUT BID 11/08/18 07/17/19 History Novolin N NPH U-100 Insulin 10 units SUBCUT HS 11/08/18 07/17/19 History acetaminophen [Tylenol Extra 500 mg PO Q6H PRN 05/24/19 07/17/19 History Strength] amitriptyline 50 mg PO HS 05/24/19 07/17/19 History blood sugar diagnostic strips #10 ea 06/02/19 07/17/19 History magnesium 64 mg (magnesium 64 mg PO TID tab 06/02/19 07/17/19 History chloride) tablet,delayed release apixaban 5 mg tablet 5 mg PO BID #180 tab 06/18/19 07/17/19 Rx metoprolol succinate ER 50 mg 50 mg PO QAM #90 tab 06/18/19 07/17/19 Rx tablet,extended release 24 hr insulin syringe U-100 with needle #300 ea 07/15/19 07/17/19 Rx 1 mL 30 gauge x 5/16" furosemide 80 mg tablet 120 mg PO BID #90 tab 07/16/19 07/17/19 Rx insulin aspart U- 100 100 unit/mL See Rx Instructions .ROUTE 07/16/19 07/17/19 Rx subcutaneous solution .COMPLEX #70 milliliter ropinirole 5 mg PO QAM 07/17/19 07/17/19 History ropinirole 10 mg PO HS 07/17/19 07/17/19 History Patient History Medical History Chronic atrial fibrillation (Chronic) Abscess of right genital labia (Chronic) CHF (congestive heart failure) (Chronic) CAD (coronary artery disease) (Chronic) Diabetes mellitus (Chronic) Lumbar spinal stenosis (Chronic) Severe at L4-5 Chronic obstructive pulmonary disease (Chronic) Myocardial Infarction (Chronic) 2013 Diabetic foot ulcer associated with type 2 diabetes mellitus (Chronic) 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 CORTES Chronic kidney disease FOLLOWS W/ DR. SHAY Clostridium difficile infection DX [facility] 11/2018 - TREATED - REPORTS CONTINUED DIARRHEA - STOOL SPECIMEN PROVIDED TO PCP OFFICE 01/12/19. RESULTS PENDING Diabetes mellitus, type 2 IDDM Fatty liver Gout History of hypotension Lung cancer S/P SURGERY Osteoarthritis Restless leg syndrome Sleep apnea CPAP Syncope Transient ischemic attack (TIA) 2005 Surgical History Hx of CABG (Chronic) 2012 - - [place] - [place] - 2 VESSELS - FOLLOWS W/ DR. CORTES History of bilateral knee replacement (Chronic) H/O: hysterectomy (Chronic) History of appendectomy (Chronic) History of amputation LEFT 3RD TOE History of appendectomy History of bronchoscopy History of cardiac cath 2012 - [facility] - [place] - NO STENTS/ANGIOPLASTY -- > CABG - FOLLOWS W/ DR. CORTES History of cholecystectomy History of colonoscopy 11/2018 [facility] History of esophagogastroduodenoscopy (EGD) 11/2018 [facility] History of hysterectomy with oophorectomy History of lobectomy of lung RML History of ovarian cystectomy History of surgery VATS PROCEDURE History of total knee replacement BL History of tubal ligation Family History Daughter Family history of diabetes mellitus Mother Heart disease Hypertension Myocardial infarction Father Hypertension Social History Preferred Language: Italian Communication Ability: Effective Visual Impairment: No Limitations Hearing Ability: Normal 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 She does exhibit reasonable strength detailed testing plantar flexion dorsiflexion bilaterally. She has difficulty with quadriceps and hip flexors on the left com pared to the right. She has marked decrease in sensation to light touch and cold to the left lower extremity compared to the right. Results & Data Vital Signs (Past 12 Hours) Vital Signs Temp Pulse Pulse Resp BP BP BP 07/17/19 12:52 07/17/19 07:23 36.7 C 70 18 148/64 H 07/17/19 05:35 36.6 C 73 18 156/84 H 07/17/19 04:30 65 14 168/68 H 07/17/19 04:01 63 14 157/69 H 07/17/19 04:00 70 14 07/17/19 03:31 70 17 158/78 H 07/17/19 03:30 66 22 07/17/19 03:01 78 19 155/96 H 07/17/19 03:00 67 22 Pulse Ox Pulse Ox 07/17/19 12:52 95 07/17/19 07:23 96 07/17/19 05:35 95 07/17/19 04:30 100 07/17/19 04:01 96 07/17/19 04:00 07/17/19 03:31 97 07/17/19 03:30 95 07/17/19 03:01 07/17/19 03:00
--- NOTE | 2019-07-17 15:08 | Hospitalist Progress Note ---
Date of Service July 17, 2019 Assessment & Plan (1) Spinal stenosis, lumbar region with neurogenic claudication: - Presented with bilat LE weakness, L>R, related to spinal stenosis. - Imaging on admission of spine showed mulitlevel spinal stenosis, most acute issue at L4-L5. - Ortho consulted, may proceed with surgical intervention early next week. Would need cardiology clearance due to extensive past medical history. - PT/OT evaluation. (2) Lower extremity weakness: - Related to spinal stenosis, see above. (3) Fall: - In setting of spinal stenosis, see above. (4) Hyperlipidemia: - Contiue statin as prescribed. (5) HTN (hypertension): - Continue Lasix 120 mg BID, Hydralazine 50 mg BID, Toprol XL 50 mg qAM, Spironolactone 25 mg qAM as prescribed. - BP has been elevated, will monitor. (6) CAD (coronary artery disease): - H/o CABG x 2 vessels in 2012 (RANDHAWA to LAD and SVG to PDA). - Continue home cardiac meds. - Will need cardiac clearance for surgery. (7) Hx of CABG: - As noted above. (8) Aortic stenosis: - Noted on TTE. - Monitored as outpatient. (9) Chronic diastolic HF (heart failure): - Most recent TTE Nov 2018 showed EF 55-60%, mild LVH. - Monitor net I/Os and daily weights; currently appears well compensated. - Continue Lasix 120 mg BID, Toprol XL as prescribed. (10) Chronic atrial fibrillation: - Continue Toprol XL as prescribed. - Holding home Eliquis for possible procedure; consider Heparin drip during transition period. (11) Diabetes mellitus: - Hgb A1C was 7.6 in May 2019. - SSI and Lantus ordered -- BG well controlled. (12) CKD (chronic kidney disease) stage 3, GFR 30-59 ml/min: - Renally dose all meds, currently at baseline. (13) Chronic obstructive pulmonary disease: - No acute exacerbation noted. - Not currently on inhalers. (14) Multiple pulmonary nodules: - Followed as outpatient; h/o lung cancer. (15) Obesity: - BMI 41.2. - Encourage weight loss and exercise. (16) Sleep apnea: - CPAP qhs. (17) Anemia: - H/o GI bleed, caution with anti-coagulants. - Monitor CBC daily. (18) Gout: - Continue home allopurinol. (19) Restless leg syndrome: - Continue Requip as prescribed. (20) DVT prophylaxis: - SCDs; holding pharmacologic ppx for possible procedure. Dispo: Med/surg; ortho surgery following. Supervising Physician Co-Signing Physician Notes Attending Attestation - Chart reviewed, care plan d/w PA Radha Yusuf in detail. I agree w/ the jimenez components of her documentation. Pt with numerous medical issues including extensive cardiac disease. Now with b/l leg weakness presumably due to lumbar spinal stenosis. Ortho has seen - lumbar decompression/fusion procedure recommended but needs cardiology clearance/optimization. Holding systemic anticoagulation in preparation for possible surgery. Galdino Medina MD Subjective Pt. complains of bilat LE weakness, no improvement. Ortho consulted for evaluation. Review of Systems Review of Systems: All systems reviewed & are unremarkable except as noted in HPI & below Constitutional: + weakness; no fever, no chills, no fatigue and no anorexia Respiratory: no cough, no dyspnea, no dyspnea on exertion and no wheezing Cardiovascular: no chest pain, no palpitations and no edema Gastrointestinal: no abdominal pain, no nausea, no vomiting, no constipation, no diarrhea/loose stools and no fecal incontinence Genitourinary: no difficulty urinating and no urinary incontinence Musculoskeletal: + muscle weakness; no back pain and no joint pain Integumentary: no non-healing lesions Allergy / Immunological: no rash Physical Exam Physical Exam: General: Obese female. HEENT: NC/AT; PERRLA with EOMI; Caroleen conjunctiva, MMM. No erythema of posterior pharynx Neck: Supple and nontender Cardiac: RRR Lungs: CTA bilaterally Abdomen: Bowel normoactive X 4; Nontender to palpation Extremities: Warm. No edema present Neuro: No focal weakness. +1/5 muscle strength LLE, +2/5 muscle strength RLE. Skin: No rash Results & Data Vital Signs (Past 12 Hours) Vital Signs Temp Pulse Pulse Resp BP BP BP 07/17/19 12:52 07/17/19 07:23 36.7 C 70 18 148/64 H 07/17/19 05:35 36.6 C 73 18 156/84 H 07/17/19 04:30 65 14 168/68 H 07/17/19 04:01 63 14 157/69 H 07/17/19 04:00 70 14 07/17/19 03:31 70 17 158/78 H 07/17/19 03:30 66 22 07/17/19 03:01 78 19 155/96 H 07/17/19 03:00 67 22 Pulse Ox Pulse Ox 07/17/19 12:52 95 07/17/19 07:23 96 07/17/19 05:35 95 07/17/19 04:30 100 07/17/19 04:01 96 07/17/19 04:00 07/17/19 03:31 97 07/17/19 03:30 95 07/17/19 03:01 07/17/19 03:00 Laboratory Results 07/17/19 07/17/19 07/17/19 Range/Units 11:56 10:03 10:03 WBC 10.53 (4.8-10.8) K/uL RBC 3.74 L (4.2-5.4) M/uL Hgb 10.3 L (12.0-16.0) g/dL Hct 33.5 L (37-47) % MCV 89.6 (80-100) fL MCH 27.5 (25-34) pg MCHC 30.7 L (32-36) g/dL RDW Std Deviation 53.7 H (36.4-46.3) fL RDW Coeff of Lelo 16.3 H (11.5-14.5) % Plt Count 187 (130-400) K/uL MPV 9.0 (7.4-10.4) fL Immature Gran % (Auto) % Neut % (Auto) % Lymph % (Auto) % Boyd % (Auto) % Eos % (Auto) % Baso % (Auto) % Immature Gran # (Auto) (0.00-0.02) K/uL Neut # (Auto) (1.4-6.5) K/uL Lymph # (Auto) (1.2-3.4) K/uL Boyd # (Auto) (0.11-0.59) K/uL Eos # (Auto) (0-0.5) K/uL Baso # (Auto) (0-0.2) K/uL Sodium 142 (136-145) mmol/L Potassium 4.0 (3.5-5.1) mmol/L Chloride 107 (98-107) mmol/L Carbon Dioxide 27 (21-32) mmol/L Anion Gap 7.0 (3-11) BUN 74 H (7-18) mg/dl Creatinine 1.50 H (0.6-1.2) mg/dl Est Cr Clr Drug Dosing 41.1 ml/min Est GFR ( Amer) 39.4 Est GFR (Non-Af Amer) 34.0 BUN/Creatinine Ratio 49.1 H (10-20) Glucose 236 H (70-99) mg/dl POC Glucose 219 H (70-99) Calcium 8.5 (8.5-10.1) mg/dl Magnesium 2.8 H (1.8-2.4) mg/dl Total Bilirubin (0.2-1) mg/dl AST (15-37) U/L ALT (12-78) U/L Alkaline Phosphatase (45-117) U/L Total Protein (6.4-8.2) gm/dl Albumin (3.4-5.0) gm/dl Globulin (2.5-4.0) gm/dl Albumin/Globulin Ratio (0.9-2) TSH (0.300-4.500) uIu/ml Specimen Hemolysis Urine Color Urine Appearance (Clear) Urine pH (4.5-7.5) Ur Specific [place] (1.000-1.030) Urine Protein (Negative) Urine Glucose (UA) (Negative) Urine Ketones (Negative) Urine Blood (Negative) Urine Nitrite (Negative) Urine Bilirubin (Negative) Urine Urobilinogen (Negative) Ur Leukocyte Esterase (Negative) Urine WBC (Auto) (0-5) /hpf Urine RBC (Auto) (0-4) /hpf U Hyaline Cast (Auto) (0-5) /lpf U Epithel Cells (Auto) (0-5) /lpf Urine Bacteria (Auto) (Negative) Ur Renal Epithelial Cell Granular Casts (0) /lpf 07/17/19 07/17/19 07/16/19 Range/Units 08:36 00:03 23:33 WBC (4.8-10.8) K/uL RBC (4.2-5.4) M/uL Hgb (12.0-16.0) g/dL Hct (37-47) % MCV (80-100) fL MCH (25-34) pg MCHC (32-36) g/dL RDW Std Deviation (36.4-46.3) fL RDW Coeff of Lelo (11.5-14.5) % Plt Count (130-400) K/uL MPV (7.4-10.4) fL Immature Gran % (Auto) % Neut % (Auto) % Lymph % (Auto) % Boyd % (Auto) % Eos % (Auto) % Baso % (Auto) % Immature Gran # (Auto) (0.00-0.02) K/uL Neut # (Auto) (1.4-6.5) K/uL Lymph # (Auto) (1.2-3.4) K/uL Boyd # (Auto) (0.11-0.59) K/uL Eos # (Auto) (0-0.5) K/uL Baso # (Auto) (0-0.2) K/uL Sodium 142 (136-145) mmol/L Potassium 4.1 (3.5-5.1) mmol/L Chloride 108 H (98-107) mmol/L Carbon Dioxide 28 (21-32) mmol/L Anion Gap 5.0 (3-11) BUN 78 H (7-18) mg/dl Creatinine 1.57 H (0.6-1.2) mg/dl Est Cr Clr Drug Dosing 35.4 ml/min Est GFR ( Amer) 37.3 Est GFR (Non-Af Amer) 32.1 BUN/Creatinine Ratio 49.4 H (10-20) Glucose 162 H (70-99) mg/dl POC Glucose 148 H (70-99) Calcium 8.4 L (8.5-10.1) mg/dl Magnesium 2.7 H (1.8-2.4) mg/dl Total Bilirubin 0.6 (0.2-1) mg/dl AST 29 (15-37) U/L ALT 47 (12-78) U/L Alkaline Phosphatase 68 (45-117) U/L Total Protein 7.0 (6.4-8.2) gm/dl Albumin 3.4 (3.4-5.0) gm/dl Globulin 3.6 (2.5-4.0) gm/dl Albumin/Globulin Ratio 0.9 (0.9-2) TSH 0.046 L (0.300-4.500) uIu/ml Specimen Hemolysis Urine Color Yellow Urine Appearance Cloudy A (Clear) Urine pH 5.0 (4.5-7.5) Ur Specific [place] 1.020 (1.000-1.030) Urine Protein Trace H (Negative) Urine Glucose (UA) Negative (Negative) Urine Ketones Negative (Negative) Urine Blood Negative (Negative) Urine Nitrite Negative (Negative) Urine Bilirubin Negative (Negative) Urine Urobilinogen Negative (Negative) Ur Leukocyte Esterase Negative (Negative) Urine WBC (Auto) 5-10 H (0-5) /hpf Urine RBC (Auto) 5-10 H (0-4) /hpf U Hyaline Cast (Auto) 5-10 H (0-5) /lpf U Epithel Cells (Auto) >30 H (0-5) /lpf Urine Bacteria (Auto) Negative (Negative) Ur Renal Epithelial Cell Not Reportable Granular Casts 1-5 H (0) /lpf 07/16/19 Range/Units 23:32 WBC 13.25 H (4.8-10.8) K/uL RBC 3.81 L (4.2-5.4) M/uL Hgb 10.8 L (12.0-16.0) g/dL Hct 33.6 L (37-47) % MCV 88.2 (80-100) fL MCH 28.3 (25-34) pg MCHC 32.1 (32-36) g/dL RDW Std Deviation 52.0 H (36.4-46.3) fL RDW Coeff of Lelo 16.2 H (11.5-14.5) % Plt Count 229 (130-400) K/uL MPV 8.8 (7.4-10.4) fL Immature Gran % (Auto) 1.7 % Neut % (Auto) 81.9 % Lymph % (Auto) 8.4 % Boyd % (Auto) 7.9 % Eos % (Auto) 0.0 % Baso % (Auto) 0.1 % Immature Gran # (Auto) 0.22 H (0.00-0.02) K/uL Neut # (Auto) 10.86 H (1.4-6.5) K/uL Lymph # (Auto) 1.11 L (1.2-3.4) K/uL Boyd # (Auto) 1.05 H (0.11-0.59) K/uL Eos # (Auto) 0.00 (0-0.5) K/uL Baso # (Auto) 0.01 (0-0.2) K/uL Sodium (136-145) mmol/L Potassium (3.5-5.1) mmol/L Chloride (98-107) mmol/L Carbon Dioxide (21-32) mmol/L Anion Gap (3-11) BUN (7-18) mg/dl Creatinine (0.6-1.2) mg/dl Est Cr Clr Drug Dosing ml/min Est GFR ( Amer) Est GFR (Non-Af Amer) BUN/Creatinine Ratio (10-20) Glucose (70-99) mg/dl POC Glucose (70-99) Calcium (8.5-10.1) mg/dl Magnesium (1.8-2.4) mg/dl Total Bilirubin (0.2-1) mg/dl AST (15-37) U/L ALT (12-78) U/L Alkaline Phosphatase (45-117) U/L Total Protein (6.4-8.2) gm/dl Albumin (3.4-5.0) gm/dl Globulin (2.5-4.0) gm/dl Albumin/Globulin Ratio (0.9-2) TSH (0.300-4.500) uIu/ml Specimen Hemolysis Urine Color Urine Appearance (Clear) Urine pH (4.5-7.5) Ur Specific [place] (1.000-1.030) Urine Protein (Negative) Urine Glucose (UA) (Negative) Urine Ketones (Negative) Urine Blood (Negative) Urine Nitrite (Negative) Urine Bilirubin (Negative) Urine Urobilinogen (Negative) Ur Leukocyte Esterase (Negative) Urine WBC (Auto) (0-5) /hpf Urine RBC (Auto) (0-4) /hpf U Hyaline Cast (Auto) (0-5) /lpf U Epithel Cells (Auto) (0-5) /lpf Urine Bacteria (Auto) (Negative) Ur Renal Epithelial Cell Granular Casts (0) /lpf PG Care Time/CCT Total # of Minutes Spent Total Time Spent with Patient: Total time spent is greater than 50% in coordination of care (as documented) at patient's floor/unit and/or counseling patient: (1) Anemia Anemia type: unspecified type Qualified Code(s): D64.9 - Anemia, unspecified (2) Fall Encounter type: initial encounter Qualified Code(s): W19.XXXA - Unspecified fall, initial encounter
[2019-07-17] MEDS: AMITRIPTYLINE HCL 50 MG TAB PO SCH (21:10)
--- NOTE | 2019-07-18 02:03 | Emergency Department Note ---
Entered by Kiarra Zapata acting as a scribe for Sabrina Lynn DO History of Present Illness General Chief complaint: Leg Weakness, Bilateral Stated complaint: TINGLING SENSATION IN LEGS Time Seen by Provider: 07/16/19 23:16 Source: patient History of Present Illness Onset (ago): week(s) 2 Location: left (leg) and right (leg) Severity: similar to prior episodes Pain Consistency: + other (Worsening) Quality: + other (Tightness) Exacerbated By: not by movement Associated symptoms: + weakness and + other (Positive urinary incontinence, recent falls. Negative abdominal pain, bowel incontinence.); no fever/chills Treatments prior to arrival: none The patient is a 73 year old female presenting to the Emergency Department complaining of worsening leg weakness starting 2 weeks ago. The patient reports that both of her legs are weak. She explains that both of her legs feel numb and describe this as a tightness. She states that her left leg numbness is worse than her right leg numbness. She notes that she sometimes experienced urinary urging incontinence. States she gets the urge to urinate and if she can't get to the bathroom fast enough she begins to dribble. 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 The patient reports that she has experienced these symptoms before as she has spinal stenosis and has an appointment with Dr. Kramer spinal surgeon on August 13, 2019 but does not think that she can wait that long because her symptoms are worsening. Pt uses a walker and wheelchair at home already. She explains that walking doesnt worsen her back pain. She states that she had an MRI of her back a long time ago. She notes that she regularly takes Eliquis. 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 The patient denies fevers, chills, abdominal pain and bowel incontinence. Patient recent illness the course of steroids from her family doctor that she was given for her complaints of lower extremity numbness. Home Medications Home Medications Medication Instructions Recorded Confirmed Type albuterol sulfate HFA 90 1 - 2 puffs INH Q4H PRN gm 07/30/18 07/17/19 History mcg/actuation aerosol inhaler allopurinol 100 mg tablet 200 mg PO QAM tab 07/30/18 07/17/19 History hydralazine 50 mg tablet 50 mg PO TID 07/30/18 07/17/19 History nitroglycerin 0.4 mg sublingual 0.4 mg SL UD PRN tab 07/30/18 07/17/19 History tablet rosuvastatin 40 mg tablet 40 mg PO QAM tab 07/30/18 07/17/19 History spironolactone 25 mg tablet 25 mg PO QAM tab 07/30/18 07/17/19 History cholecalciferol (vitamin D3) 2,000 unit PO QAM 10/13/18 07/17/19 History [Vitamin D3] potassium chloride 20 meq PO TID 10/13/18 07/17/19 History Levemir U-100 Insulin 30 units SUBCUT BID 11/08/18 07/17/19 History Novolin N NPH U-100 Insulin 10 units SUBCUT HS 11/08/18 07/17/19 History acetaminophen [Tylenol Extra 500 mg PO Q6H PRN 05/24/19 07/17/19 History Strength] amitriptyline 50 mg PO HS 05/24/19 07/17/19 History magnesium 64 mg (magnesium 64 mg PO TID tab 06/02/19 07/17/19 History chloride) tablet,delayed release apixaban 5 mg tablet 5 mg PO BID #180 tab 06/18/19 07/17/19 Rx metoprolol succinate ER 50 mg 50 mg PO QAM #90 tab 06/18/19 07/17/19 Rx tablet,extended release 24 hr insulin syringe U-100 with needle #300 ea 07/15/19 07/17/19 Rx 1 mL 30 gauge x /16" furosemide 80 mg tablet 120 mg PO BID #90 tab 07/16/19 07/17/19 Rx insulin aspart U- 100 100 unit/mL See Rx Instructions .ROUTE 07/16/19 07/17/19 Rx subcutaneous solution .COMPLEX #70 milliliter blood sugar diagnostic strips #150 ea 07/17/19 Rx ropinirole 5 mg PO QAM 07/17/19 07/17/19 History ropinirole 10 mg PO HS 07/17/19 07/17/19 History Allergies Allergy/AdvReac Type Severity Reaction Status Date / Time NSAIDS (Non-Steroidal Allergy Unknown UNK? Verified 07/17/19 00:21 Anti-Inflamma DENIES SOB. capsaicin AdvReac Severe SHORTNESS Verified 07/17/19 00:21 OF BREATH diclofenac AdvReac Severe SHORTNESS Verified 07/17/19 00:21 OF BREATH Diclopak AdvReac Severe SHORTNESS Verified 07/24/18 10:57 OF BREATH Past Med/Surg History Medical History Chronic atrial fibrillation (Chronic) Abscess of right genital labia (Chronic) CHF (congestive heart failure) (Chronic) CAD (coronary artery disease) (Chronic) Diabetes mellitus (Chronic) Lumbar spinal stenosis (Chronic) Severe at L4-5 Chronic obstructive pulmonary disease (Chronic) Myocardial Infarction (Chronic) 2012 Diabetic foot ulcer associated with type 2 diabetes mellitus (Chronic) 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 CORTES Chronic kidney disease FOLLOWS W/ DR. SHAY Clostridium difficile infection DX [facility] 11/2018 - TREATED - REPORTS CONTINUED DIARRHEA - STOOL SPECIMEN PROVIDED TO PCP OFFICE 01/12/19. RESULTS PENDING Diabetes mellitus, type 2 IDDM Fatty liver Gout History of hypotension Lung cancer S/P SURGERY Osteoarthritis Restless leg syndrome Sleep apnea CPAP Syncope Transient ischemic attack (TIA) 2005 Surgical History Hx of CABG (Chronic) 2012 - - [place] - [place] - 2 VESSELS - FOLLOWS W/ DR. CORTES History of bilateral knee replacement (Chronic) H/O: hysterectomy (Chronic) History of appendectomy (Chronic) History of amputation LEFT 3RD TOE History of appendectomy History of bronchoscopy History of cardiac cath 2012 - [facility] - [place] - NO STENTS/ANGIOPLASTY -- > CABG - FOLLOWS Jose/ DR. CORTES History of cholecystectomy History of colonoscopy 11/2018 [facility] History of esophagogastroduodenoscopy (EGD) 11/2018 [facility] History of hysterectomy with oophorectomy History of lobectomy of lung RML History of ovarian cystectomy History of surgery VATS PROCEDURE History of total knee replacement BL History of tubal ligation Family History Daughter Family history of diabetes mellitus Mother Heart disease Hypertension Myocardial infarction Father Hypertension Social History Preferred Language: Venezuelan Communication Ability: Effective Visual Impairment: No Limitations Hearing Ability: Normal Sterilisation Technician Required: No Beliefs That Will Affect Care: Sabianist marital status: Current Living Situation: Spouse Other Information That Helps Us Care for You: No Feels Safe at Home: Yes Safety Concerns: Feels Safe At This Time Smoking Status: Former smoker Tobacco Type: cigarettes ; Cigarettes Per Day: 10 ; Do You Dip or Chew Tobacco: No ; Second Hand Exposure: No ; Hx Alcohol Use: No Hx Substance Use: No Review of Systems See HPI for pertinent positives & negatives. and A total of 10 systems reviewed and were otherwise negative Physical Exam Vital Signs Vital Signs - 24 hr 07/17/19 02:30 07/17/19 03:00 07/17/19 03:01 Pulse Rate 83 67 78 Respiratory Rate 19 22 19 Blood Pressure 163/95 H 155/96 H Blood Pressure Mean 117 115 GENERAL: alert, well appearing, well nourished, no distress, non-toxic HEAD: nc/at, no bassett sign, no raccoon eyes EYE EXAM: normal conjunctiva, PERRL and EOM's grossly intact OROPHARYNX: no exudate, no erythema, lips, buccal mucosa, and tongue normal and mucous membranes are moist NECK: supple, no nuchal rigidity, no adenopathy, non-tender LUNGS: Clear to auscultation. Normal chest wall mechanics HEART: no murmurs, S1 normal and S2 normal ABDOMEN: abdomen soft, non-tender, normo-active bowel sounds, no masses, no rebound or guarding. BACK: Back is symmetrical on inspection and there is no deformity, no midline tenderness, no CVA tenderness. SKIN: no rashes and no bruising UPPER EXTREMITIES: upper extremities are grossly normal. FROM, nml pulses b/l. No bony tenderness or deformities, no evidence of trauma. LOWER EXTREMITIES: Diminished sensation to sharp touch and pressure to lower extremities. Decreased ROM to LLE secondary to discomfort. Pt able to straight leg raise without pain b/l. No ataxia. Nml pulses b/l. Incr ROM on right compared to left. No bony tenderness or deformities, no evidence of trauma. NEURO EXAM: Normal sensorium, cranial nerves II-XII grossly intact, normal speech, no gross weakness of arms, no gross weakness of legs. No ataxia. Course 2318: The patient was evaluated in room C4, and a complete history and physical examination were performed. 0205: I reevaluated the patient at this time. No improvement of symptoms. 0215: I discussed the patients case with Dr. Yas LENZ hospitalist. He will evaluate the patient for further management. Consultations Consultation #1: I discussed the patients case with Dr. Yas LENZ [facility]. He will evaluate the patient for further management. Time: 02:15 Administered Medications Allopurinol (Zyloprim) 200 mg PO QAM [facility] Stop: 08/16/19 08:59 Last Admin: 07/17/19 08:53 Dose: 200 mg Documented by: [id number] Amitriptyline HCl (Elavil) 50 mg PO HS [facility] Stop: 08/16/19 20:59 Last Admin: 07/17/19 21:10 Dose: 50 mg Documented by: [id number] Furosemide (Lasix) 120 mg PO BID17 [facility] Stop: 08/16/19 08:59 Last Admin: 07/17/19 16:43 Dose: 120 mg Documented by: [id number] Admin: 07/17/19 08:53 Dose: 120 mg Documented by: [id number] Hydralazine HCl (Apresoline) 50 mg PO TID [facility] Stop: 08/16/19 08:59 Last Admin: 07/17/19 21:10 Dose: 50 mg Documented by: [id number] Admin: 07/17/19 13:52 Dose: 50 mg Documented by: [id number] Admin: 07/17/19 08:53 Dose: 50 mg Documented by: [id number] Insulin Aspart (Novolog Flexpen) 0 units SC [facility]; Protocol Stop: 08/16/19 07:29 Last Admin: 07/17/19 21:14 Dose: 8 units Documented by: [id number] Cosigned by: [id number] Admin: 07/17/19 18:20 Dose: 16 units Documented by: [id number] Cosigned by: [id number] Admin: 07/17/19 13:51 Dose: 19 units Documented by: [id number] Cosigned by: [id number] Admin: 07/17/19 08:50 Dose: 6 units Documented by: [id number] Cosigned by: [id number] Insulin Detemir (Levemir Flextouch) 25 units SC BID [facility]; Protocol Stop: 08/16/19 08:59 Last Admin: 07/17/19 21:12 Dose: 25 units Documented by: [id number] Cosigned by: [id number] Admin: 07/17/19 08:51 Dose: 25 units Documented by: [id number] Cosigned by: [id number] Metoprolol Succinate ([facility] Xl) [facility] [place] Stop: 08/16/19 08:59 Last Admin: 07/17/19 08:53 Dose: 50 mg Documented by: [id number] Potassium Chloride (Klor-Con M20) 20 meq PO TID [facility] Stop: 08/16/19 08:59 Last Admin: 07/17/19 21:11 Dose: 20 meq Documented by: [id number] Admin: 07/17/19 13:52 Dose: 20 meq Documented by: [id number] Admin: 07/17/19 08:52 Dose: 20 meq Documented by: [id number] Ropinirole HCl (Requip) [facility] [place] Stop: 08/16/19 08:59 Last Admin: 07/17/19 08:53 Dose: 5 mg Documented by: [id number] Ropinirole HCl (Requip) 10 mg PO [facility] Stop: 08/16/19 20:59 Last Admin: 07/17/19 21:11 Dose: 10 mg Documented by: [id number] Rosuvastatin Calcium (Crestor) 40 mg PO [facility] Stop: 08/16/19 08:59 Last Admin: 07/17/19 08:52 Dose: 40 mg Documented by: [id number] Spironolactone (Aldactone) 25 [facility] [place] Stop: 08/16/19 08:59 Last Admin: 07/17/19 08:53 Dose: 25 mg Documented by: [id number] Vitamin D (Vitamin D3) 2,000 units [facility] [place] Stop: 08/16/19 08:59 Last Admin: 07/17/19 08:52 Dose: 2,000 units Documented by: [id number] Discontinued Medications Gabapentin (Neurontin) 100 mg PO NOW [facility] Stop: 07/16/19 23:26 Last Admin: 07/16/19 23:34 Dose: 100 mg Documented by: [id number] Ropinirole HCl (Requip) 5 mg PO NOW [facility] Stop: 07/17/19 01:35 Last Admin: 07/17/19 01:43 Dose: 5 mg Documented by: [id number] Ropinirole HCl (Requip) 5 mg PO [facility] Stop: 07/17/19 02:19 Last Admin: 07/17/19 02:56 Dose: 5 mg Documented by: [id number] Medical Decision Making Differential Diagnosis Differential diagnoses includes but is not limited to lumbar radiculopathy, muscle strain, fracture, cauda equina, mass, and disc herniation amongst others. Medical Records Attestation: I reviewed the patient's medical records. Home Medications Current Medication List: was personally reviewed by me Laboratory Data Attestation: I reviewed the patient's lab results. Result diagrams: 07/17/19 10:03 07/17/19 10:03 Lab Results 07/16/19 07/16/19 07/17/19 Range/Units 23:32 23:33 00:03 WBC 13.25 H (4.8-10.8) K/uL RBC 3.81 L (4.2-5.4) M/uL Hgb 10.8 L (12.0-16.0) g/dL Hct 33.6 L (37-47) % MCV 88.2 (80-100) fL MCH 28.3 (25-34) pg MCHC 32.1 (32-36) g/dL RDW Std Deviation 52.0 H (36.4-46.3) fL RDW Coeff of Lelo 16.2 H (11.5-14.5) % Plt Count 229 (130-400) K/uL MPV 8.8 (7.4-10.4) fL Immature Gran % (Auto) 1.7 % Neut % (Auto) 81.9 % Lymph % (Auto) 8.4 % [place] % (Auto) 7.9 % Eos % (Auto) 0.0 % Baso % (Auto) 0.1 % Immature Gran # (Auto) 0.22 H (0.00-0.02) K/uL Neut # (Auto) 10.86 H (1.4-6.5) K/uL Lymph # (Auto) 1.11 L (1.2-3.4) K/uL [place] # (Auto) 1.05 H (0.11-0.59) K/uL Eos # (Auto) 0.00 (0-0.5) K/uL Baso # (Auto) 0.01 (0-0.2) K/uL Sodium 142 (136-145) mmol/L Potassium 4.1 (3.5-5.1) mmol/L Chloride 108 H (98-107) mmol/L Carbon Dioxide 28 (21-32) mmol/L Anion Gap 5.0 (3-11) BUN 78 H (7-18) mg/dl Creatinine 1.57 H (0.6-1.2) mg/dl Est Cr Clr Drug Dosing 35.4 ml/min Est GFR ( Amer) 37.3 Est GFR (Non-Af Amer) 32.1 BUN/Creatinine Ratio 49.4 H (10-20) Glucose 162 H (70-99) mg/dl Calcium 8.4 L (8.5-10.1) mg/dl Magnesium 2.7 H (1.8-2.4) mg/dl Total Bilirubin 0.6 (0.2-1) mg/dl AST 29 (15-37) U/L ALT 47 (12-78) U/L Alkaline Phosphatase 68 (45-117) U/L Total Protein 7.0 (6.4-8.2) gm/dl Albumin 3.4 (3.4-5.0) gm/dl Globulin 3.6 (2.5-4.0) gm/dl Albumin/Globulin Ratio 0.9 (0.9-2) TSH 0.046 L (0.300-4.500) uIu/ml Urine Color Yellow Urine Appearance Cloudy A (Clear) Urine pH 5.0 (4.5-7.5) Ur Specific [place] 1.020 (1.000-1.030) Urine Protein Trace H (Negative) Urine Glucose (UA) Negative (Negative) Urine Ketones Negative (Negative) Urine Blood Negative (Negative) Urine Nitrite Negative (Negative) Urine Bilirubin Negative (Negative) Urine Urobilinogen Negative (Negative) Ur Leukocyte Esterase Negative (Negative) Urine WBC (Auto) 5-10 H (0-5) /hpf Urine RBC (Auto) 5-10 H (0-4) /hpf U Hyaline Cast (Auto) 5-10 H (0-5) /lpf U Epithel Cells (Auto) >30 H (0-5) /lpf Urine Bacteria (Auto) Negative (Negative) Ur Renal Epithelial Cell Not Reportable Granular Casts 1-5 H (0) /lpf Imaging Data Radiologist's Impression: Radiology results as stated below per my review and the radiologist's interpretation: MRI L SPINE : No acute fracture. Multilevel degenerative disc disease and lumbar spondylosis, resulting in multilevel severe spinal canal stenosis. No disc herniation. No abnormal distal cord signal. Radiologist: Elia Marquez MD Study ready at 01:34 and initial results transmitted at 01:41 ECG Data Attestation: I personally reviewed and interpreted this ECG as follows: Indication: weakness Rate (beats per minute): 89 Rhythm: atrial fibrillation Findings: + LBBB, + T-wave inversion (Lead 1 and aVL.) and + left axis deviation Comparison ECG Date: from (05/24/19) Change: no significant change Blood Pressure Blood Pressure Findings: Elevated blood pressure Blood Pressure Disposition: further management by hospitalist MDM Narrative Patient here well-appearing despite complaints. Patient with no pain, no saddle anesthesia, I feel her urinary incontinence is more likely urge incontinence and chronic. Unfortunately, patient has fallen 3 times recently due to increased paresthesias and weakness in the lower extremities despite already using a walker and intermittent wheelchair at home. Patient's symptoms are not improved with medications. Leukocytosis seen on labs likely secondary to recent course of steroids from PCP. Patient's MRI does not reveal any acute surgical pathology, she has chronic severe multilevel spinal stenosis and degenerative changes likely contributing to her progression of symptoms. Due to concern for ambulatory dysfunction and safety due to frequent falls, case was discussed with hospitalist for additional evaluation and management. Patient was hemodynamically stable throughout. I do not suspect acute pathology. Patient's UA here suboptimal. I do not suspect vascular etiology, or other occult infectious etiology. I do not suspect occult trauma related to the falls today. Impression & Plan Spinal stenosis, Ambulatory dysfunction, Fall, Radiculopathy, Neuropathy Discharge Plan Visit Data *Final* Discharge Date/Time: 07/17/19 04:41 Chief Complaint: Leg Weakness, Bilateral Stated Complaint: TINGLING SENSATION IN LEGS ED Provider: Pheasant,Sabrina S Discharge Problem: Spinal stenosis, Ambulatory dysfunction, Fall, Radiculopathy, Neuropathy Patient Disposition: Admitted As Inpatient Discharge Instructions Interventions: ED Discharge Assessment Last Done: 07/17/19 04:41 Discharge Problem: Spinal stenosis Qualifiers: Spinal region: unspecified Qualified Code(s): M48.00 - Spinal stenosis, site unspecified Fall Qualifiers: Encounter type: initial encounter Qualified Code(s): W19.XXXA - Unspecified fall, initial encounter Radiculopathy Qualifiers: Spinal region: unspecified Qualified Code(s): M54.10 - Radiculopathy, site unspecified The scribe's documentation has been prepared under my direction and personally reviewed by me in its entirety. I confirm that the note above accurately reflects all work, treatment, procedures, and medical decision making performed by me.
[2019-07-18 06:59] LABS: Hematocrit (blood only) 33.8 % (37-47); Hemoglobin 10.9 g/dL (12.0-16.0); Mean Corpuscular Hgb Conc 32.2 g/dL (32-36); Mean Corpuscular Volume 88.3 fL (80-100); Mean Platelet Volume 8.6 fL (7.4-10.4); Platelet Count 199 K/uL (130-400); RDW Coefficient of Variation 16.2 % (11.5-14.5); RDW Standard Deviation 51.9 fL (36.4-46.3); Red Blood Count 3.83 M/uL (4.2-5.4); White Blood Count 10.19 K/uL (4.8-10.8)
[2019-07-18 07:23] LABS: BUN Creatinine Ratio 49.4 (10-20); Calcium 8.3 mg/dl (8.5-10.1); Creatinine Clr Calc Pharmacy 43.6 ml/min; Est GFR (African American) 43.5; Est GFR (Non-African American) 37.6; Magnesium 2.7 mg/dl (1.8-2.4); Potassium 3.2 mmol/L (3.5-5.1)
[2019-07-18] MEDS ORDERED: POTASSIUM CHLORIDE 20 MEQ TABCR PO STA (07:59)
[2019-07-18] MEDS: ROPINIROLE HCL 5 MG TABLET PO SCH ×2 (09:07→22:02)
[2019-07-18] MEDS: CHOLECALCIFEROL 1,000 UNITS TAB PO SCH (09:07)
[2019-07-18] MEDS: ROSUVASTATIN CALCIUM 20 MG TAB PO SCH (09:07)
[2019-07-18] MEDS: METOPROLOL SUCC 50MG EXT REL TAB PO SCH (09:08)
[2019-07-18] MEDS: HydrALAZINE TAB 50 MG TAB PO SCH ×3 (09:08→22:03)
[2019-07-18] MEDS: SPIRONOLACTONE 25 MG TAB PO SCH (09:08)
[2019-07-18] MEDS: FUROSEMIDE 40 MG TAB PO SCH ×2 (09:08→17:23)
[2019-07-18] MEDS: POTASSIUM CHLORIDE 20 MEQ TABCR PO SCH ×3 (09:09→22:02)
[2019-07-18] MEDS: ALLOPURINOL 100 MG TAB PO SCH (09:09)
[2019-07-18] MEDS: INSULIN DETEMIR FLEXPEN/FLEX TOUCH 100 UNITS/ML 3ML SC SCH ×2 (09:13→22:06)
[2019-07-18] MEDS: INSULIN ASPART 100 UNITS/ML 3 ML PEN SC SCH ×3 (09:13→22:05)
--- NOTE | 2019-07-18 10:22 | Orthopedic Progress Note ---
Date of Service July 18, 2019 Assessment & Plan (1) Spinal stenosis, lumbar region with neurogenic claudication: At this time we will awaiting input from the internal medicine service regarding patient's candidacy for surgery. If she is deemed a reasonable surgical candidate I am comfortable proceeding with surgery next week if the patient would like. Present on Admission?: Yes Subjective Patient resting comfortably. Results & Data Vital Signs (Past 12 Hours) Vital Signs Temp Pulse Pulse Resp BP BP Pulse Ox 07/18/19 07:49 36.5 C 68 18 168/53 H 96 07/17/19 23:30 36.8 C 74 18 165/69 H 98
--- NOTE | 2019-07-18 11:14 | Pharmacy Report ---
Pharmacy Glycemic Short Note 2 - Date of Service July 18, 2019 - Glycemic Short BSG Results (Last 24 hours): 07/17/19 07/17/19 07/17/19 11:56 17:17 20:49 Glucose POC Glucose 219 H 168 H 234 H 07/18/19 07/18/19 06:38 08:15 Glucose 154 H POC Glucose 151 H OUTPATIENT ANTIDIABETIC REGIMEN: * Levemir 30 units BID * NPH 10 units HS * Novolog, up to 240 units/day * A1c = 7.6 % 05/26/19 ASSESSMENT: * 73 year old female admitted for leg weakness, spinal stenosis. Possible surgery next week if cleared by medicine. * Type 2 diabetic, reports very large doses of bolus insulin at home, will begin with reduced doses for inpatient, as patient only required 55-80 units/day when admitted last November, and titrate to goal blood sugar. * Pt has received 99 units of insulin over the past 24hrs with near adequate control * 50 units of basal insulin * 49 units of bolus insulin * BSGs ranging 148-234 mg/dl * AM fasting BSG just slightly above goal range at 151 mg/dl --> will increase Lantus slightly * Post-prandial BSGs elevated --> will tighten CR * Goal is to maintain BSGs <200 mg/dl (ideally <150 mg/dl) to prevent post op complications PLAN FOR INPATIENT GLYCEMIC CONTROL: * Basal insulin * increase sightly: Lantus 28 units SQ BID * Bolus insulin: tighten CR * NovoLog per scale ACHS or Q6hrs while NPO * Goal Range: Low 110 mg/dL - High 140 mg/dL * Correction Factor: 12 mg/dL/unit * Nutritional / Prandial insulin per carb ratio of 1 unit per 3 grams CHO consumed
--- NOTE | 2019-07-18 11:59 | Hospitalist Progress Note ---
Date of Service July 18, 2019 Assessment & Plan (1) Spinal stenosis, lumbar region with neurogenic claudication: - Presented with bilat LE weakness, L>R, related to spinal stenosis. - Imaging on admission of spine showed multi-level spinal stenosis, most acute issue at L4-L5. - Ortho consulted, may proceed with surgical intervention early next week. Will consult cardiology for pre-op clearance due to extensive cardiac history. - PT/OT evaluation - recommending rehab placement. (2) Lower extremity weakness: - Related to spinal stenosis, see above. (3) Fall: - In setting of spinal stenosis, see above. (4) Hyperlipidemia: - Continue statin as prescribed. (5) HTN (hypertension): - Continue Lasix 120 mg BID, Hydralazine 50 mg BID, Toprol XL 50 mg qAM, Spironolactone 25 mg qAM as prescribed. - BP has been elevated, will not make any medication adjustments at this time. (6) CAD (coronary artery disease): - H/o CABG x 2 vessels in 2012 (RANDHAWA to LAD and SVG to PDA). - Continue home cardiac meds. - Consult cardiology for pre-op clearance due to extensive cardiac history. (7) Hx of CABG: - As noted above, consulting cards. (8) Aortic stenosis: - Noted on TTE. - Monitored as outpatient. (9) Chronic diastolic HF (heart failure): - Most recent TTE Nov 2018 showed EF 55-60%, mild LVH. - Monitor net I/Os and daily weights; currently well compensated. - Continue Lasix 120 mg BID, Toprol XL as prescribed. (10) Chronic atrial fibrillation: - Continue Toprol XL as prescribed. - Holding home Eliquis for possible procedure. (11) Diabetes mellitus: - Hgb A1C was 7.6 in May 2019. - SSI and Lantus ordered -- BG has been fluctuating, will tighten SSI coverage. (12) CKD (chronic kidney disease) stage 3, GFR 30-59 ml/min: - Renally dose all meds, currently at baseline. (13) Chronic obstructive pulmonary disease: - No acute exacerbation noted. - Not currently on inhalers. (14) Multiple pulmonary nodules: - Followed as outpatient; h/o lung cancer. (15) Obesity: - BMI 41.2. - Encourage weight loss and exercise. (16) Sleep apnea: - CPAP qhs. (17) Anemia: - H/o GI bleed, caution with anti-coagulants. - Monitor CBC daily. (18) Gout: - Continue home allopurinol. (19) Restless leg syndrome: - Continue Requip as prescribed. (20) Electrolyte abnormality: - K level 3.2 -- ordered K 60 mEq PO due to high dose of Lasix. - Monitor levels daily. (21) DVT prophylaxis: - SCDs; holding pharmacologic ppx for possible procedure. Dispo: Med/surg; plan for surgical intervention early next week pending pre-op clearance. Subjective Pt. has ongoing LE weakness, no improvement. Ortho consulted, discussed possibility of surgery with the patient. She is considering this option. PT recommending rehab; will need rehab placement if we do not proceed with surgery during this admission. Review of Systems Review of Systems: All systems reviewed & are unremarkable except as noted in HPI & below Constitutional: + weakness; no fever, no chills and no fatigue Respiratory: no cough, no dyspnea, no dyspnea on exertion and no wheezing Cardiovascular: no chest pain, no palpitations and no edema Gastrointestinal: no abdominal pain, no nausea, no constipation and no fecal incontinence Genitourinary: no difficulty urinating and no urinary incontinence Musculoskeletal: + muscle weakness; no back pain and no joint pain Integumentary: no non-healing lesions Physical Exam Physical Exam: General: Obese female, no acute distress. HEENT: NC/AT; PERRLA with EOMI; [place] conjunctiva, MMM. No erythema of posterior pharynx Neck: Supple and nontender Cardiac: RRR Lungs: CTA bilaterally Abdomen: Bowel normoactive X 4; Nontender to palpation Extremities: Warm. No edema present Neuro: No focal weakness. +2/5 bilat LE muscle strength. Skin: No rash Results & Data Vital Signs (Past 12 Hours) Vital Signs Temp Pulse Resp BP Pulse Ox 07/18/19 07:49 36.5 C 68 18 168/53 H 96 Laboratory Results 07/18/19 07/18/19 07/18/19 Range/Units 08:15 06:38 06:38 WBC 10.19 (4.8-10.8) K/uL RBC 3.83 L (4.2-5.4) M/uL Hgb 10.9 L (12.0-16.0) g/dL Hct 33.8 L (37-47) % MCV 88.3 (80-100) fL MCH 28.5 (25-34) pg MCHC 32.2 (32-36) g/dL RDW Std Deviation 51.9 H (36.4-46.3) fL RDW Coeff of Lelo 16.2 H (11.5-14.5) % Plt Count 199 (130-400) K/uL MPV 8.6 (7.4-10.4) fL Sodium 142 (136-145) mmol/L Potassium 3.2 L D (3.5-5.1) mmol/L Chloride 105 (98-107) mmol/L Carbon Dioxide 30 (21-32) mmol/L Anion Gap 8.0 (3-11) BUN 68 H (7-18) mg/dl Creatinine 1.38 H (0.6-1.2) mg/dl Est Cr Clr Drug Dosing 43.6 ml/min Est GFR ( Amer) 43.5 Est GFR (Non-Af Amer) 37.6 BUN/Creatinine Ratio 49.4 H (10-20) Glucose 154 H (70-99) mg/dl POC Glucose 151 H (70-99) Calcium 8.3 L (8.5-10.1) mg/dl Magnesium 2.7 H (1.8-2.4) mg/dl 07/17/19 07/17/19 07/17/19 Range/Units 20:49 17:17 11:56 WBC (4.8-10.8) K/uL RBC (4.2-5.4) M/uL Hgb (12.0-16.0) g/dL Hct (37-47) % MCV (80-100) fL MCH (25-34) pg MCHC (32-36) g/dL RDW Std Deviation (36.4-46.3) fL RDW Coeff of Lelo (11.5-14.5) % Plt Count (130-400) K/uL MPV (7.4-10.4) fL Sodium (136-145) mmol/L Potassium (3.5-5.1) mmol/L Chloride (98-107) mmol/L Carbon Dioxide (21-32) mmol/L Anion Gap (3-11) BUN (7-18) mg/dl Creatinine (0.6-1.2) mg/dl Est Cr Clr Drug Dosing ml/min Est GFR ( Amer) Est GFR (Non-Af Amer) BUN/Creatinine Ratio (10-20) Glucose (70-99) mg/dl POC Glucose 234 H 168 H 219 H (70-99) Calcium (8.5-10.1) mg/dl Magnesium (1.8-2.4) mg/dl PG Care Time/CCT Total # of Minutes Spent Total Time Spent with Patient: Total time spent is greater than 50% in coordination of care (as documented) at patient's floor/unit and/or counseling patient: (1) Fall Encounter type: initial encounter Qualified Code(s): W19.XXXA - Unspecified fall, initial encounter (2) Anemia Anemia type: unspecified type Qualified Code(s): D64.9 - Anemia, unspecified
[2019-07-18] MEDS ORDERED: POTASSIUM CHLORIDE 20 MEQ TABCR PO ONE (12:00)
--- NOTE | 2019-07-18 14:00 | Cardiology Consultation ---
Date of Consultation July 18, 2019 Assessment & Plan (1) CAD (coronary artery disease): The patient underwent a 2 vessel bypass in July 2013. Her coronary artery disease has remained quiescent on her current medical regimen since that time. She underwent a right middle lobe resection back in July 2016 without event. She is an acceptable cardiac risk for lumbar surgery. (2) Chronic diastolic HF (heart failure): The patient carries a history of chronic diastolic CHF which has been well controlled on Lasix and spironolactone. Would avoid extremes of volume during her operative procedure. (3) Aortic stenosis: Mild aortic stenosis with a valve area of 1.9 cm2 on echocardiogram performed in March 2018. This is of no concern for upcoming procedure. (4) Chronic atrial fibrillation: The patient's atrial fibrillation is completely asymptomatic. Her Eliquis has been placed on hold due to the possibility of surgery. (5) Preoperative cardiovascular examination: The patient is an acceptable cardiac risk for lumbar surgery without further cardiac testing. History of Present Illness Attending Physician: Tai Kam MD History of Present Illness Mrs. Ramires is a 73-year-old female admitted yesterday because of symptomatic lumbar spinal stenosis. The patient will likely undergo a surgical procedure next week. This consultation was ordered as a preoperative evaluation. Of note, the patient followed by Dr. Hernandez in the outpatient setting. The patient has been experiencing significant symptoms home her spinal stenosis over the last 8-10 months. However, over the last several weeks, the patient has had profound lower extremity weakness and now can only ambulate with the assistance of a walker, or uses a wheelchair. She has had several falls because her "legs just give out." She presented to the emergency room with those complaints and was admitted for further care and consideration of spinal surgery. The patient has a significant cardiac history. She underwent a 2 vessel bypass in July 2013 at the [facility]. This included an RANDHAWA to the LAD, an SVG to the PDA. The patient has done well from a cardiac perspective since that time. She does not experience exertional angina pectoris or limiting dyspnea. She further denies syncope, presyncope, PND, orthopnea, lower extremity edema, and claudication. The patient also has persistent atrial fibrillation. She is maintained on metoprolol succinate and Eliquis for long-term management. Her Eliquis has been placed on hold as surgery is being considered. The patient also carries a history of mild aortic stenosis. Aortic valve area was calculated 1.9 cm2 on echocardiogram performed in March 2018. The patient has chronic diastolic CHF and is maintained on twice daily Lasix. Currently the patient is resting comfortably in the bedside chair without complaints. Past medical and surgical history 1. Coronary artery disease -see above 2. CABG times 03 July 2013 3. Mild aortic stenosis - 1.9 cm2, March 2018 4. Chronic diastolic CHF 5. Hypertension 6. LVH 7. Hypercholesterolemia 8. Persistent atrial fibrillation 9. Diabetes mellitus 10. Diabetic neuropathy 11. COPD 12. Pulmonary nodules 13. 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 Right middle lobe resection -July 2016 15. GERD 16. Chronic renal failure 17. Gout 18. IPMN 19. Multinodular goiter 20. Obesity 21. Obstructive sleep apnea 22. Vitamin D deficiency 23. Appendectomy 24. Cholecystectomy 25. Bilateral TKR 26. Toe amputation 27. Hysterectomy Social history The patient is and lives with her Retired No tobacco or alcohol Family history noncontributory Review of systems A 10 point review of systems was undertaken and negative except for that described above. Allergies Allergy/AdvReac Type Severity Reaction Status Date / Time NSAIDS (Non-Steroidal Allergy Unknown UNK? Verified 07/17/19 00:21 Anti-Inflamma DENIES SOB. capsaicin AdvReac Severe SHORTNESS Verified 07/17/19 00:21 OF BREATH diclofenac AdvReac Severe SHORTNESS Verified 07/17/19 00:21 OF BREATH Diclopak AdvReac Severe SHORTNESS Verified 07/24/18 10:57 OF BREATH Home Medications Home Medications Medication Instructions Recorded Confirmed Type albuterol sulfate HFA 90 1 - 2 puffs INH Q4H PRN gm 07/30/18 07/17/19 History mcg/actuation aerosol inhaler allopurinol 100 mg tablet 200 mg PO QAM tab 07/30/18 07/17/19 History hydralazine 50 mg tablet 50 mg PO TID 07/30/18 07/17/19 History nitroglycerin 0.4 mg sublingual 0.4 mg SL UD PRN tab 07/30/18 07/17/19 History tablet rosuvastatin 40 mg tablet 40 mg PO QAM tab 07/30/18 07/17/19 History spironolactone 25 mg tablet 25 mg PO QAM tab 07/30/18 07/17/19 History cholecalciferol (vitamin D3) 2,000 unit PO QAM 10/13/18 07/17/19 History [Vitamin D3] potassium chloride 20 meq PO TID 10/13/18 07/17/19 History Levemir U-100 Insulin 30 units SUBCUT BID 11/08/18 07/17/19 History Novolin N NPH U-100 Insulin 10 units SUBCUT HS 11/08/18 07/17/19 History acetaminophen [Tylenol Extra 500 mg PO Q6H PRN 05/24/19 07/17/19 History Strength] amitriptyline 50 mg PO HS 05/24/19 07/17/19 History magnesium 64 mg (magnesium 64 mg PO TID tab 06/02/19 07/17/19 History chloride) tablet,delayed release apixaban 5 mg tablet 5 mg PO BID #180 tab 06/18/19 07/17/19 Rx metoprolol succinate ER 50 mg 50 mg PO QAM #90 tab 06/18/19 07/17/19 Rx tablet,extended release 24 hr insulin syringe U-100 with needle #300 ea 07/15/19 07/17/19 Rx 1 mL 30 gauge x 5/16" furosemide 80 mg tablet 120 mg PO BID #90 tab 07/16/19 07/17/19 Rx insulin aspart U- 100 100 unit/mL See Rx Instructions .ROUTE 07/16/19 07/17/19 Rx subcutaneous solution .COMPLEX #70 milliliter blood sugar diagnostic strips #150 ea 07/17/19 Rx ropinirole 5 mg PO QAM 07/17/19 07/17/19 History ropinirole 10 mg PO HS 07/17/19 07/17/19 History Patient History Medical History Chronic atrial fibrillation (Chronic) Abscess of right genital labia (Chronic) CHF (congestive heart failure) (Chronic) CAD (coronary artery disease) (Chronic) Diabetes mellitus (Chronic) Lumbar spinal stenosis (Chronic) Severe at L4-5 Chronic obstructive pulmonary disease (Chronic) Myocardial Infarction (Chronic) 2012 Diabetic foot ulcer associated with type 2 diabetes mellitus (Chronic) 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 HERNANDEZ Chronic kidney disease FOLLOWS W/ DR. SHAY Clostridium difficile infection DX [facility] 11/2018 - TREATED - REPORTS CONTINUED DIARRHEA - STOOL SPECIMEN PROVIDED TO PCP OFFICE 01/12/19. RESULTS PENDING Diabetes mellitus, type 2 IDDM Fatty liver Gout History of hypotension Lung cancer S/P SURGERY Osteoarthritis Restless leg syndrome Sleep apnea CPAP Syncope Transient ischemic attack (TIA) 2005 Surgical History Hx of CABG (Chronic) 2012 - - [place] - [facility] - 2 VESSELS - FOLLOWS W/ DR. HERNANDEZ History of bilateral knee replacement (Chronic) H/O: hysterectomy (Chronic) History of appendectomy (Chronic) History of amputation LEFT 3RD TOE History of appendectomy History of bronchoscopy History of cardiac cath 2012 [facility] - [place] - NO STENTS/ANGIOPLASTY -- > CABG - FOLLOWS W/ DR. HERNANDEZ History of cholecystectomy History of colonoscopy 11/2018 [facility] History of esophagogastroduodenoscopy (EGD) 11/2018 [facility] History of hysterectomy with oophorectomy History of lobectomy of lung RML History of ovarian cystectomy History of surgery VATS PROCEDURE History of total knee replacement BL History of tubal ligation Family History Daughter Family history of diabetes mellitus Mother Heart disease Hypertension Myocardial infarction Father Hypertension Social History Preferred Language: Vietnamese Communication Ability: Effective Visual Impairment: No Limitations Hearing Ability: Normal Flagsetter Required: No Beliefs That Will Affect Care: Presybeterian marital status: Current Living Situation: Spouse Other Information That Helps Us Care for You: No Feels Safe at Home: Yes Safety Concerns: Feels Safe At This Time Smoking Status: Former smoker Tobacco Type: cigarettes ; Cigarettes Per Day: 10 ; Do You Dip or Chew Tobacco: No ; Second Hand Exposure: No ; Hx Alcohol Use: No Hx Substance Use: No Physical Exam Physical Exam: In general this is an obese white female in no acute distress. HEENT exam is negative. Neck is supple with full carotid upstrokes. There are no carotid bruits. Jugular venous pressure is flat at 90. There is no thyromegaly. Cardiovascular exam reveals a regular rhythm with a 2/6 basal systolic ejection murmur. No S3. Lungs are clear without rales, rhonchi or wheezes. Abdomen is obese without bruits. Extremities reveal intact radial artery pulses bilaterally. Trace pretibial edema is noted. Results & Data Vital Signs (Past 12 Hours) Vital Signs Temp Pulse Resp BP Pulse Ox 07/18/19 12:00 36.6 C 75 18 151/63 H 95 07/18/19 07:49 36.5 C 68 18 168/53 H 96 Laboratory Results CBC notes hemoglobin 10.9, hematocrit 33.8, white count 10.1, and platelet count [id number]. Electrolytes note a sodium 142, potassium 3.2, chloride 105, bicarb 30, BUN 60, creatinine 1.38, glucose of 154. Diagnostic Findings EKG notes atrial fibrillation with a controlled ventricular response. This left axis deviation and left ventricular hypertrophy with QRS widening and repolarization changes. This is unchanged compared with study dated May 24, 2019. PG Care Time/CCT Total # of Minutes Spent Total Time Spent with Patient: Total time spent is greater than 50% in coordination of care (as documented) at patient's floor/unit and/or counseling patient:
[2019-07-18] MEDS: AMITRIPTYLINE HCL 50 MG TAB PO SCH (22:01)
[2019-07-19 07:24] LABS: Calcium 8.7 mg/dl (8.5-10.1); Est GFR (Non-African American) 43.2; Potassium 3.5 mmol/L (3.5-5.1)
[2019-07-19] MEDS: ROSUVASTATIN CALCIUM 20 MG TAB PO SCH (08:53)
[2019-07-19] MEDS: ALLOPURINOL 100 MG TAB PO SCH (08:53)
[2019-07-19] MEDS: METOPROLOL SUCC 50MG EXT REL TAB PO SCH (08:53)
[2019-07-19] MEDS: SPIRONOLACTONE 25 MG TAB PO SCH (08:53)
[2019-07-19] MEDS: CHOLECALCIFEROL 1,000 UNITS TAB PO SCH (08:53)
[2019-07-19] MEDS: HydrALAZINE TAB 50 MG TAB PO SCH ×3 (08:53→20:47)
[2019-07-19] MEDS: FUROSEMIDE 40 MG TAB PO SCH ×2 (08:54→17:28)
[2019-07-19] MEDS: POTASSIUM CHLORIDE 20 MEQ TABCR PO SCH ×3 (08:54→20:44)
[2019-07-19] MEDS: ROPINIROLE HCL 5 MG TABLET PO SCH ×2 (08:54→20:43)
[2019-07-19] MEDS ORDERED: INSULIN DETEMIR FLEXPEN/FLEX TOUCH 100 UNITS/ML 3ML SC SCH (09:00)
[2019-07-19] MEDS: INSULIN ASPART 100 UNITS/ML 3 ML PEN SC SCH ×4 (09:00→20:52)
--- NOTE | 2019-07-19 11:39 | Orthopedic Progress Note ---
Date of Service July 19, 2019 Assessment & Plan (1) Spinal stenosis, lumbar region with neurogenic claudication: This time patient has been cleared by cardiology and we had a long discussion today regarding surgical intervention. He would require a lumbar decompression fusion L for 5 L5-S1. Risk benefits pros cons and alternatives were outlined in detail. She will made n.p.o. after midnight tonight. We hope to be able to perform surgery tomorrow. Present on Admission?: Yes Subjective Patient continues to complain of bilateral leg pain. Left is worse than the right. She notes significant weakness to left lower extremity. Physical Exam Physical Exam: Patient is in the chair at the bedside. She does have weakness to testing left lower extremity as well as sensory deficits. Results & Data Vital Signs (Past 12 Hours) Vital Signs Temp Pulse Resp BP Pulse Ox 07/19/19 08:00 36.5 C 63 18 158/95 H 99
--- NOTE | 2019-07-19 12:07 | Pharmacy Report ---
Pharmacy Glycemic Short Note 2 - Date of Service July 19, 2019 - Glycemic Short BSG Results (Last 24 hours): 07/18/19 07/18/19 07/18/19 12:24 16:53 20:53 Glucose POC Glucose 198 H 194 H 187 H 07/19/19 07/19/19 07/19/19 06:38 08:22 08:43 Glucose 74 POC Glucose 66 L* 82 OUTPATIENT ANTIDIABETIC REGIMEN: * Levemir 30 units BID * NPH 10 units HS * Novolog, up to 240 units/day * A1c = 7.6 % 05/26/19 ASSESSMENT: * 73 year old female admitted for leg weakness, spinal stenosis. * Pt cleared for lumbar decompression fusion L for 5 L5-S1 scheduled for tomorrow. * Pt with LOW BSG this morning. Will reduce basal insulin dosing by 20% * Will further reduce basal insulin dosing for tonight and tomorrow morning for NPO status for surgery. * Goal is to maintain BSGs <200 mg/dl (ideally <150 mg/dl) to prevent post op complications PLAN FOR INPATIENT GLYCEMIC CONTROL: * Basal insulin * decrease sightly: Lantus 25 units SQ BID * Will further decrease to Lantus 20 units SQ BID x 2 doses (tonight and tomorrow morning) for NPO status * Bolus insulin: loosen slightly based on estimated total daily dose of 100 units/day * NovoLog per scale ACHS or Q6hrs while NPO * Goal Range: Low 110 mg/dL - High 140 mg/dL * Correction Factor: 15 mg/dL/unit * Nutritional / Prandial insulin per carb ratio of 1 unit per 5 grams CHO consumed
--- NOTE | 2019-07-19 12:20 | Hospitalist Progress Note ---
Date of Service July 19, 2019 Assessment & Plan (1) Spinal stenosis, lumbar region with neurogenic claudication: - Presented with bilat LE weakness, L>R, related to spinal stenosis. - Imaging on admission of spine showed multi-level spinal stenosis, most acute issue at L4-L5. - Ortho consulted. Plan for surgery tomorrow. Cleared by cardiology. Pt will be made NPO after midnight. - PT/OT evaluation - recommending rehab placement. (2) Lower extremity weakness: - Related to spinal stenosis, see above. (3) Fall: - In setting of spinal stenosis, see above. (4) Hyperlipidemia: - Continue statin as prescribed. (5) HTN (hypertension): - Continue Lasix 120 mg BID, Hydralazine 50 mg BID, Toprol XL 50 mg qAM, Spironolactone 25 mg qAM as prescribed. - BP has been elevated, will not make any medication adjustments at this time. Likely secondary to pain. (6) CAD (coronary artery disease): - H/o CABG x 2 vessels in 2012 (RANDHAWA to LAD and SVG to PDA). - Continue home cardiac meds. - Cleared for surgery from cardiology standpoint. (7) Hx of CABG: - As noted above (8) Aortic stenosis: - Noted on TTE. - Monitored as outpatient. (9) Chronic diastolic HF (heart failure): - Most recent TTE Nov 2018 showed EF 55-60%, mild LVH. - Continue to onitor net I/Os and daily weights; currently stable. - Continue Lasix 120 mg BID, Toprol XL as prescribed. (10) Chronic atrial fibrillation: - Continue Toprol XL as prescribed. - Holding home Eliquis for possible procedure. (11) Diabetes mellitus: - Hgb A1C was 7.6 in May 2019. - SSI and Lantus ordered -- BG has been fluctuating. Glucose was 74 this AM. Continue to monitor. (12) CKD (chronic kidney disease) stage 3, GFR 30-59 ml/min: - Renally dose all meds, currently at baseline. (13) Chronic obstructive pulmonary disease: - No acute exacerbation noted. - Not currently on inhalers. (14) Multiple pulmonary nodules: - Followed as outpatient; h/o lung cancer. (15) Obesity: - BMI 41.2. - Encourage weight loss and exercise. (16) Sleep apnea: - CPAP qhs. (17) Anemia: - H/o GI bleed, caution with anti-coagulants. - Monitor CBC daily. (18) Gout: - Continue home allopurinol. (19) Restless leg syndrome: - Continue Requip as prescribed. (20) Electrolyte abnormality: - K level 3.2 -- ordered K 60 mEq PO due to high dose of Lasix. K now improved to 3.5 this morning. - Continue to monitor. (21) DVT prophylaxis: - SCDs; holding pharmacologic ppx for possible procedure. Dispo: Med/surg; plan for surgical intervention tomorrow. Will likely need rehab placement upon discharge. Subjective 73-year-old female admitted for lower extremity weakness and pain. Noted to have spinal stenosis on imaging. Patient continues to complain of lower extremity weakness today L>R. C/o back pain. Patient was seen by Dr. Capone today. Pending possible surgery tomorrow. She has been cleared from a cardiology standpoint. Review of Systems Constitutional: no fever and no chills Ear, Nose, Mouth, Throat: no dizziness Respiratory: no dyspnea Cardiovascular: no chest pain Gastrointestinal: no abdominal pain, no nausea and no vomiting Genitourinary: no dysuria and no difficulty urinating Psychiatric: no confusion Physical Exam Physical Exam: Temp Pulse Resp BP Pulse Ox 36.5 C 63 18 158/95 H 99 07/19/19 08:00 07/19/19 08:00 07/19/19 08:00 07/19/19 08:00 07/19/19 08:00 Pt is afebrile. She is hypertensive at 158/95. Constitutional: + obese; no acute distress ENMT: Ears: no hearing impairment Neck: normal visual inspection Respiratory: normal respiratory effort, lungs clear to auscultation Cardiovascular: RRR, no murmur, no edema Gastrointestinal (Abdomen): Inspection/Auscultation: normal bowel sounds Pe rcussion/Palpation: abdomen soft; abdomen nontender Musculoskeletal: Head/Neck/Chest: normocephalic and head atraumatic Extremities: + abnormal strength (Decreased strength bilateral lower extremities ) Skin: no rashes, warm and dry Psychiatric: A+Ox3, euthymic affect Results & Data Vital Signs (Past 12 Hours) Vital Signs Temp Pulse Resp BP Pulse Ox 07/19/19 08:00 36.5 C 63 18 158/95 H 99 PG Care Time/CCT Total # of Minutes Spent Total Time Spent with Patient: Total time spent is greater than 50% in coordination of care (as documented) at patient's floor/unit and/or counseling patient: (1) Fall Encounter type: initial encounter Qualified Code(s): W19.XXXA - Unspecified fall, initial encounter (2) Anemia Anemia type: unspecified type Qualified Code(s): D64.9 - Anemia, unspecified
[2019-07-19] MEDS ORDERED: OXYCODONE HCL IR 5 MG TAB (IMMEDIATE RELEASE) PO PRN (12:26)
[2019-07-19] MEDS: AMITRIPTYLINE HCL 50 MG TAB PO SCH (20:43)
[2019-07-19] MEDS: INSULIN DETEMIR FLEXPEN/FLEX TOUCH 100 UNITS/ML 3ML SC SCH (20:50)
[2019-07-20] MEDS ORDERED: Nursing to Pharmacy Communication ONE ×2 (01:29→16:24)
[2019-07-20 06:17] LABS: Basophils # (auto) 0.01 K/uL (0-0.2); Basophils % (auto) 0.1 %; Eosinophils % (auto) 2.6 %; Hematocrit (blood only) 37.9 % (37-47); Hemoglobin 12.1 g/dL (12.0-16.0); Immature Granulocytes # (auto) 0.12 K/uL (0.00-0.02); Lymphocytes # (auto) 1.89 K/uL (1.2-3.4); Lymphocytes % (auto) 16.5 %; Mean Corpuscular Hgb Conc 31.9 g/dL (32-36); Mean Corpuscular Volume 89.6 fL (80-100); Mean Platelet Volume 9.5 fL (7.4-10.4); Monocytes # (auto) 0.76 K/uL (0.11-0.59); Monocytes % (auto) 6.6 %; Neutrophils % (auto) 73.2 %; Platelet Count 194 K/uL (130-400); RDW Coefficient of Variation 16.5 % (11.5-14.5); Red Blood Count 4.23 M/uL (4.2-5.4); White Blood Count 11.48 K/uL (4.8-10.8)
[2019-07-20] MEDS: INSULIN ASPART 100 UNITS/ML 3 ML PEN SC SCH ×4 (06:27→20:50)
[2019-07-20 06:34] LABS: INR 1.1 (0.9-1.1); Prothrombin Time 11.1 Seconds (9.0-12.0)
[2019-07-20 06:44] LABS: BUN Creatinine Ratio 48.5 (10-20); Calcium 8.6 mg/dl (8.5-10.1); Creatinine Clr Calc Pharmacy 44.2 ml/min; Est GFR (African American) 44.3; Est GFR (Non-African American) 38.2; Potassium 3.7 mmol/L (3.5-5.1)
[2019-07-20] MEDS: ALLOPURINOL 100 MG TAB PO SCH (07:46)
[2019-07-20] MEDS: POTASSIUM CHLORIDE 20 MEQ TABCR PO SCH ×3 (07:46→20:23)
[2019-07-20] MEDS: SPIRONOLACTONE 25 MG TAB PO SCH (07:47)
[2019-07-20] MEDS: HydrALAZINE TAB 50 MG TAB PO SCH ×3 (07:47→20:23)
[2019-07-20] MEDS: FUROSEMIDE 40 MG TAB PO SCH ×2 (07:47→16:09)
[2019-07-20] MEDS: ROSUVASTATIN CALCIUM 20 MG TAB PO SCH (07:47)
[2019-07-20] MEDS: ROPINIROLE HCL 5 MG TABLET PO SCH ×2 (07:47→20:23)
[2019-07-20] MEDS: METOPROLOL SUCC 50MG EXT REL TAB PO SCH (07:48)
[2019-07-20] MEDS: CHOLECALCIFEROL 1,000 UNITS TAB PO SCH (07:48)
[2019-07-20] MEDS: INSULIN DETEMIR FLEXPEN/FLEX TOUCH 100 UNITS/ML 3ML SC SCH (07:50)
--- NOTE | 2019-07-20 09:09 | Pharmacy Report ---
Pharmacy Glycemic Short Note 2 - Date of Service July 20, 2019 - Glycemic Short BSG Results (Last 24 hours): 07/19/19 07/19/19 07/19/19 12:40 17:34 20:48 Glucose POC Glucose 122 H 102 H 151 H 07/20/19 07/20/19 06:04 06:05 Glucose 76 POC Glucose 82 OUTPATIENT ANTIDIABETIC REGIMEN: * Levemir 30 units BID * NPH 10 units HS * Novolog, up to 240 units/day * A1c = 7.6 % 05/26/19 ASSESSMENT: 07/20 * Ms. Ramires received 77 units of insulin yesterday (45 of this being basal) * Basal dosing was reduced x 2 doses for NPO status; however, fasting BSG today remains "low" at 76 mg/dL after adequate po intake at each meal yesterday. Will plan to keep reduced basal dosing to prevent further hypoglycemia. * Postprandial BSGs within range so no adjustment to Novolog is necessary * Patient in OR now for spinal surgery. No intraop Decadron administered that I can see but will f/u later today to confirm this. 07/19 * 73 year old female admitted for leg weakness, spinal stenosis. * Pt cleared for lumbar decompression fusion L for 5 L5-S1 scheduled for tomorrow. * Pt with LOW BSG this morning. Will reduce basal insulin dosing by 20% * Will further reduce basal insulin dosing for tonight and tomorrow morning for NPO status for surgery. * Goal is to maintain BSGs <200 mg/dl (ideally <150 mg/dl) to prevent post op complications PLAN FOR INPATIENT GLYCEMIC CONTROL: * Basal insulin - continue with decreased dose used for NPO status * Levemir 20 units BID * Bolus insulin - no change * NovoLog per scale ACHS or Q6hrs while NPO * Goal Range: Low 110 mg/dL - High 140 mg/dL * Correction Factor: 15 mg/dL/unit * Nutritional / Prandial insulin per carb ratio of 1 unit per 5 grams CHO consumed Discharge Recommendations: * A1c of 7.6% indicates excellent outpatient control * Continue outpatient regimen on discharge unless patient experiencing hypoglycemia at home
[2019-07-20] MEDS ORDERED: MIDAZOLAM HCL 1 MG/ML 2ML VIAL ONE (11:08)
[2019-07-20] MEDS ORDERED: fentaNYL citrate 100 MCG/2 ML VIAL ONE ×5 (11:08→14:35)
--- NOTE | 2019-07-20 11:24 | History & Physical Bridge Note ---
Date of Service July 20, 2019 History & Physical Bridge Note I have examined the patient, reviewed the History & Physical and in the interval since the performance of the History & Physical I have noted the following changes of clinical significance: no changes noted
[2019-07-20] MEDS ORDERED: CEFAZOLIN 2,000 MG/15 ML IV PUSH IV ONE (11:53)
[2019-07-20] MEDS ORDERED: CEFAZOLIN 2000MG 2,000 MG/15 ML SYR IV ONE (11:55)
[2019-07-20] MEDS ORDERED: BUPIVACAINE/EPINEPHRINE 0.5% MPF 1:200,000 30 ML VIAL ONE (12:03)
[2019-07-20] MEDS ORDERED: BACITRACIN INJ 50,000 UNIT VIAL ONE (12:03)
[2019-07-20] MEDS ORDERED: VANCOMYCIN HCL 1000MG/20ML VIAL ONE (12:20)
[2019-07-20] MEDS ORDERED: GENTAMICIN SULFATE 40 MG/ML 2 ML VIAL ONE (12:21)
--- NOTE | 2019-07-20 12:26 | Hospitalist Progress Note ---
Date of Service July 20, 2019 Assessment & Plan (1) Spinal stenosis, lumbar region with neurogenic claudication: - Presents with B/L LE weakness with L>R related to spinal stenosis; imaging supports multi-level spinal stenosis most acute in L4-L5 - Has experience a few falls related to this condition prior to admission - Orthopedics following with plan for surgical repair on 07/20 - PT/OT - appreciate re-evaluation post-operatively Present on Admission?: Yes (2) CAD (coronary artery disease): - H/O CABG x 2 (2012); Aortic Stenosis; HTN; HLD; Chronic Diastolic CHF; Chronic Atrial Fibrillation - Echo (Nov 2018) - EF 55-60%; mild LVH - Lasix 120 mg BID; Spironolactone 25 mg daily; Hydralazine 50 mg TID; Toprol XL 50 mg daily; Rosuvastatin 40 mg daily - Eliquis on hold pending surgical procedure - appreciate orthopedics input on resumption - Cardiology consulted - cleared for surgical procedure; no ACS symptoms or decompensated CHF Present on Admission?: Yes (3) Chronic atrial fibrillation: - Rate controlled; treatment as above Present on Admission?: Yes (4) Chronic diastolic HF (heart failure): - No acute decompensation; treatment as above Present on Admission?: Yes (5) Diabetes mellitus: - A1C was 7.6 in May 2019. - Appreciate glycemic management - anticipate possibility of intraoperative steroids so BSGs may elevate Present on Admission?: Yes (6) CKD (chronic kidney disease) stage 3, GFR 30-59 ml/min: - STABLE; continue to monitor and avoid nephrotoxins when able Present on Admission?: Yes (7) Chronic obstructive pulmonary disease: - No acute exacerbation; Albuterol PRN Present on Admission?: Yes (8) Multiple pulmonary nodules: - Followed as outpatient; H/O lung cancer Present on Admission?: Yes (9) Anemia: - STABLE; monitor post-operatively - H/O GI bleed Present on Admission?: Yes (10) Sleep apnea: - CPAP (11) Obesity: - BMI 41.2. - Encourage weight loss and exercise. (12) DVT prophylaxis: - SCDs; holding chemical ppx pending surgical intervention Disposition: Appreciate PT/OT evaluations post-operatively; rehab vs home with outpatient services? Subjective Reports feeling well today. Continues with numbness/tingling of legs with L > R but currently no pain. Is planning on surgical intervention later today. Verbalizes no new issues today. Review of Systems Constitutional: no fever and no chills Ear, Nose, Mouth, Throat: no nasal congestion and no sore throat Respiratory: no cough and no dyspnea Cardiovascular: no chest pain, no palpitations, no lightheadedness and no edema Gastrointestinal: no abdominal pain, no nausea, no vomiting, no constipation and no diarrhea/loose stools Genitourinary: no dysuria Musculoskeletal: + stiffness Integumentary: no rash Neurologic: + tingling and + numbness Physical Exam Constitutional: WD/WN, vitals as above Eyes: + anicteric sclerae ENMT: Ears: no hearing impairment Neck: normal visual inspection and trachea midline Respiratory: normal respiratory effort, lungs clear to auscultation Cardiovascular: Rate/Rhythm: regular rate and + irregularly irregular Gastrointestinal (Abdomen): Inspection/Auscultation: normal bowel sounds Percussion/Palpation: abdomen soft; abdomen nontender Musculoskeletal: Head/Neck/Chest: normocephalic and head atraumatic Skin: no rashes, warm and dry Neurologic: moves all extremities Psychiatric: A+Ox3, euthymic affect Results & Data Vital Signs (Past 12 Hours) Vital Signs Temp Pulse Pulse Resp BP Pulse Ox 07/20/19 11:04 36.9 C 81 18 141/91 H 94 07/20/19 08:16 36.6 C 86 20 156/68 H 95 PG Care Time/CCT Total # of Minutes Spent Total Time Spent with Patient: Total time spent is greater than 50% in coordination of care (as documented) at patient's floor/unit and/or counseling patient: (1) Anemia Anemia type: unspecified type Qualified Code(s): D64.9 - Anemia, unspecified
[2019-07-20] MEDS ORDERED: HYDROmorphone INJ 2 MG/ML SYR/VIAL ONE ×2 (12:35→14:24)
--- NOTE | 2019-07-20 12:37 | Anesthesiology Consultation ---
Date of Service July 20, 2019 Assessment & Plan Chart Review Chart Review: Acceptable Risk for Surgery and Patient NOT seen in Pre Admission Testing Consults Requested none Proposed Anesthesia Risk / Benefits Reviewed With: PT / POA / Parent / Guardian, Accepts Plan and Informed Consent Obtained History Surgery Operation Date: 07/20/19 12:35 Proposed Procedures p Lumbar Decompression Fusion L4-S1 - Rubén Kramer, DO Height/Weight Height: 5 ft 5 in Weight: 107.2 kg Allergies Allergy/AdvReac Type Severity Reaction Status Date / Time NSAIDS (Non-Steroidal Allergy Unknown UNK? Verified 07/17/19 00:21 Anti-Inflamma DENIES SOB. capsaicin AdvReac Severe SHORTNESS Verified 07/17/19 00:21 OF BREATH diclofenac AdvReac Severe SHORTNESS Verified 07/17/19 00:21 OF BREATH [place] AdvReac Severe SHORTNESS Verified 07/24/18 10:57 OF BREATH Medications Home Medications Medication Instructions Recorded Confirmed Last Taken albuterol sulfate HFA 90 1 - 2 puffs INH Q4H PRN gm 07/30/18 07/17/19 10/12/18 mcg/actuation aerosol inhaler allopurinol 100 mg tablet 200 mg PO QAM tab 07/30/18 07/17/19 07/16/19 hydralazine 50 mg tablet 50 mg PO TID 07/30/18 07/17/19 07/16/19 nitroglycerin 0.4 mg sublingual 0.4 mg SL UD PRN tab 07/30/18 07/17/19 Unknown tablet rosuvastatin 40 mg tablet 40 mg PO QAM tab 07/30/18 07/17/19 07/16/19 spironolactone 25 mg tablet 25 mg PO QAM tab 07/30/18 07/17/19 07/16/19 cholecalciferol (vitamin D3) 2,000 unit PO QAM 10/13/18 07/17/19 07/16/19 [Vitamin D3] potassium chloride 20 meq PO TID 10/13/18 07/17/19 07/16/19 Levemir U-100 Insulin 30 units SUBCUT BID 11/08/18 07/17/19 07/16/19 Novolin N NPH U-100 Insulin 10 units SUBCUT HS 11/08/18 07/17/19 07/16/19 acetaminophen [Tylenol Extra 500 mg PO Q6H PRN 05/24/19 07/17/19 05/24/19 08:00 Strength] 1000mg amitriptyline 50 mg PO HS 05/24/19 07/17/19 07/16/19 magnesium 64 mg (magnesium 64 mg PO TID tab 06/02/19 07/17/19 07/16/19 chloride) tablet,delayed release apixaban 5 mg tablet 5 mg PO BID #180 tab 06/18/19 07/17/19 07/16/19 metoprolol succinate ER 50 mg 50 mg PO QAM #90 tab 06/18/19 07/17/19 07/16/19 tablet,extended release 24 hr insulin syringe U-100 with needle #300 ea 07/15/19 07/17/19 Unknown 1 mL 30 gauge x 04/16" furosemide 80 mg tablet 120 mg PO BID #90 tab 07/16/19 07/17/19 07/16/19 insulin aspart U- 100 100 unit/mL See Rx Instructions .ROUTE 07/16/19 07/17/19 07/16/19 subcutaneous solution .COMPLEX #70 milliliter blood sugar diagnostic strips #150 ea 07/17/19 Unknown ropinirole 5 mg PO QAM 07/17/19 07/17/19 07/16/19 ropinirole 10 mg PO HS 07/17/19 07/17/19 07/17/19 5 mg in ed Active Medications Generic Name Dose Route Start Last Admin Trade Name Freq PRN Reason Stop Dose Admin Allopurinol 200 mg 07/17/19 09:00 07/20/19 07:46 Zyloprim PO 08/16/19 08:59 200 mg QAM CEM Administration Amitriptyline HCl 50 mg 07/17/19 21:00 07/19/19 20:43 Elavil PO 08/16/19 20:59 50 mg HS CEM Administration Furosemide 120 mg 07/17/19 09:00 07/20/19 07:47 Lasix PO 08/16/19 08:59 120 mg BID17 CEM Administration Hydralazine HCl 50 mg 07/17/19 09:00 07/20/19 07:47 Apresoline PO 08/16/19 08:59 50 mg TID CEM Administration Insulin Aspart 0 units 07/20/19 06:00 07/20/19 12:05 Novolog Flexpen SC 08/19/19 05:59 Not Given Q6 CEM Protocol Metoprolol Succinate 50 mg 07/17/19 09:00 07/20/19 07:48 Toprol Xl PO 08/16/19 08:59 50 mg QAM CEM Administration Miscellaneous 15 - 30 gm 07/17/19 07:00 07/19/19 08:25 Carbohydrates For Hypoglycemia PO 08/16/19 06:59 15 gm UD PRN Administration Hypoglycemia Treatment Potassium Chloride 20 meq 07/17/19 09:00 07/20/19 07:46 Klor-Con M20 PO 08/16/19 08:59 20 meq TID CEM Administration Ropinirole HCl 5 mg 07/17/19 09:00 07/20/19 07:47 Requip PO 08/16/19 08:59 5 mg QAM CEM Administration Ropinirole HCl 10 mg 07/17/19 21:00 07/19/19 20:43 Requip PO 08/16/19 20:59 10 mg HS CME Administration Rosuvastatin Calcium 40 mg 07/17/19 09:00 07/20/19 07:47 Crestor PO 08/16/19 08:59 40 mg QAM CEM Administration Spironolactone 25 mg 07/17/19 09:00 07/20/19 07:47 Aldactone PO 08/16/19 08:59 25 mg QAM CEM Administration Vitamin D 2,000 units 07/17/19 09:00 07/20/19 07:48 Vitamin D3 PO 08/16/19 08:59 2,000 units QAM CEM Administration NPO Date Last Intake of Fluids: 07/19/19 Time Last Intake of Fluids: 21:00 Last Intake of Fluids Comment: sips with meds this am Date Last Intake of Solids: 07/19/19 Time Last Intake of Solids: 18:00 Past Medical History Medical History Chronic atrial fibrillation (Chronic) Abscess of right genital labia (Chronic) CHF (congestive heart failure) (Chronic) CAD (coronary artery disease) (Chronic) Diabetes mellitus (Chronic) Lumbar spinal stenosis (Chronic) Severe at L4-5 Chronic obstructive pulmonary disease (Chronic) Myocardial Infarction (Chronic) 2013 Diabetic foot ulcer associated with type 2 diabetes mellitus (Chronic) 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 CORTES Chronic kidney disease FOLLOWS W/ DR. SHAY Clostridium difficile infection DX [facility] 11/2018 - TREATED - REPORTS CONTINUED DIARRHEA - STOOL SPECIMEN PROVIDED TO PCP OFFICE 01/12/19. RESULTS PENDING Diabetes mellitus, type 2 IDDM Fatty liver Gout History of hypotension Lung cancer S/P SURGERY Osteoarthritis Restless leg syndrome Sleep apnea CPAP Syncope Transient ischemic attack (TIA) 2005 Past Family History Family History Daughter Family history of diabetes mellitus Mother Heart disease Hypertension Myocardial infarction Father Hypertension Past Surgical History Surgical History Hx of CABG (Chronic) 2012 - - [place] - 2 VESSELS - FOLLOWS W/ DR. CORTES History of bilateral knee replacement (Chronic) H/O: hysterectomy (Chronic) History of appendectomy (Chronic) History of amputation LEFT 3RD TOE History of appendectomy History of bronchoscopy History of cardiac cath 2012 - [facility] - [place] - NO STENTS/ANGIOPLASTY -- > CABG - FOLLOWS W/ DR. CORTES History of cholecystectomy History of colonoscopy 11/2018 [facility] History of esophagogastroduodenoscopy (EGD) 11/2018 [facility] History of hysterectomy with oophorectomy History of lobectomy of lung RML History of ovarian cystectomy History of surgery VATS PROCEDURE History of total knee replacement BL History of tubal ligation Social History Smoking Status: Former smoker tobacco type: cigarettes Smoking cigarettes per day: 10 Do You Dip or Chew Tobacco: No Hx Alcohol Use: No Hx Substance Use: No substance use type: does not use Physical Exam Vital Signs Last Vital Signs Temp 36.9 C 07/20/19 11:04 Pulse 81 07/20/19 11:04 Resp 18 07/20/19 11:04 BP 141/91 H 07/20/19 11:04 Pulse Ox 94 07/20/19 11:04 Testing Laboratory Results 07/20/19 06:05 07/20/19 06:05 PT 11.1 Seconds (9.0-12.0) 07/20/19 06:05 INR 1.1 (0.9-1.1) 07/20/19 06:05 Urine Color Yellow 07/17/19 00:03 Urine Appearance Cloudy (Clear) A 07/17/19 00:03 Urine pH 5.0 (4.5-7.5) 07/17/19 00:03 Ur Specific [place] 1.020 (1.000-1.030) 07/17/19 00:03 Urine Protein Trace (Negative) H 07/17/19 00:03 Urine Glucose (UA) Negative (Negative) 07/17/19 00:03 Urine Ketones Negative (Negative) 07/17/19 00:03 Urine Nitrite Negative (Negative) 07/17/19 00:03 Ur Leukocyte Esterase Negative (Negative) 07/17/19 00:03 Urine WBC (Auto) 5-10 /hpf (0-5) H 07/17/19 00:03 Urine RBC (Auto) 5-10 /hpf (0-4) H 07/17/19 00:03 U Hyaline Cast (Auto) 5-10 /lpf (0-5) H 07/17/19 00:03 U Epithel Cells (Auto) >30 /lpf (0-5) H 07/17/19 00:03 Urine Bacteria (Auto) Negative (Negative) 07/17/19 00:03 07/20/19 06:04 POC Glucose 82
[2019-07-20] MEDS ORDERED: fentaNYL citrate 100 MCG/2 ML VIAL IV PRN (12:39)
[2019-07-20] MEDS ORDERED: ATROPINE SULFATE 0.1 MG/ML 10ML SYR IV PRN (12:39)
[2019-07-20] MEDS ORDERED: HYDROmorphone INJ 1 MG/ML SYRINGE IV PRN (12:39)
[2019-07-20] MEDS ORDERED: METOCLOPRAMIDE HCL INJ 5 MG/ML 2 ML VIAL IV PRN ×2 (12:39→15:54)
[2019-07-20] MEDS ORDERED: ONDANSETRON INJ 2 MG/ML 2 ML VIAL IV PRN ×2 (12:39→15:54)
[2019-07-20] MEDS ORDERED: ePHEDrine sulfate 50 MG/ML AMP IV PRN (12:39)
[2019-07-20] MEDS ORDERED: PROMETHAZINE HCL 12.5 MG in SODIUM CHLORIDE 0.9% 50 ML IV PRN ×2 (12:39→15:54)
[2019-07-20] MEDS ORDERED: SURGICEL ABSORB HEMOSTAT 2IN X 14IN TOP ONE (12:59)
[2019-07-20] MEDS ORDERED: ALBUMIN HUMAN 5% 12.5 GM/250 ML VIAL IV ONE (13:36)
[2019-07-20] MEDS ORDERED: FLOSEAL HEMOSTATIC MATRIX 10ML TOP ONE (14:19)
[2019-07-20] MEDS ORDERED: ePHEDrine sulfate 50 MG/ML SYR ONE (14:25)
[2019-07-20] MEDS ORDERED: LIDOCAINE HCL 2% 2 ML VIAL/AMP(20MG/ML) INFIL ONE (14:25)
[2019-07-20] MEDS ORDERED: PHENYLEPHRINE 100MCG/ML 5ML SYR ONE (14:25)
[2019-07-20] MEDS ORDERED: ONDANSETRON INJ 2 MG/ML 2 ML VIAL ONE (14:25)
[2019-07-20] MEDS ORDERED: DEXAMETHASONE SOD INJ 4 MG/ML VIAL ONE (14:25)
[2019-07-20] MEDS ORDERED: PROPOFOL IV EMULSION 10 MG/ML 20 ML VIAL IV ONE (14:25)
[2019-07-20] MEDS ORDERED: GLYCOPYRROLATE 0.2 MG/ML VIAL ONE (14:25)
[2019-07-20] MEDS ORDERED: NEOSTIGMINE METHYLSULFATE 1 MG/ML 10ML VIAL ONE (14:25)
--- NOTE | 2019-07-20 14:29 | Operative Report ---
Post Operative Report Pre & Post Diagnosis Operation Date: 07/20/19 12:35 Pre-Op Diagnosis: Spinal Stenosis, Lumbar Region with Neurogenic Claudication Post-Op Diagnosis: Spinal Stenosis, Lumbar Region with Neurogenic Claudication Procedure Operation Date: 07/20/19 12:35 Actual Procedures #1 lumbar decompression with bilateral medial facetectomies foraminotomies L3-4 L4-5 L5-S1. #2 posterior spinal fusion L4-5 L5-S1. #3 placement posterior instrumentation L4-5 L5-S1. #4 interbody fusion L4-5 L5-S1. #5 placed a peek cage 11 x 26 mm L4-5 and 12 x 26 mm at L5-S1. #6 placement of local autograft in the posterior lateral gutters per #7 placement Feese collagen sponge master graft in the posterior lateral gutters and ostial amp in the interbody space. Surgeon Rubén Kramer DO Optimization Analyst Rachel Monge Estimated Blood Loss 300 Findings See Below The patient is a 5 foot 5 inches tall weighing over 107 kg with a BMI in excess of 39. The patient's body habitus added significant technical difficulty throughout the procedure both in patient positioning as well as the operative procedure itself at at least 40% increase in operative time. Specimens None Indications This is a 73-year-old female presents with above-mentioned diagnosis after failing extensive course of nonoperative care and progressive weakness we elect ed to go the above-mentioned procedure. Description of Procedure Informed consent obtained. Patient was then taken to the operative suite underwent intubation placed in a prone position on the Reyes table on top of the Alex frame. All bony prominences well-padded eyes inspected to ensure no external pressure placed upon the peer at this point the lumbar spine was prepped and draped in a normal sterile fashion. Sharp dissection with the assistance of Bovie cautery was performed down to and exposing the lamina transverse processes of L3-L4-L5 and the sacral ala bilaterally. From a caudal to cephalad fashion complete laminectomy of L5 L4 and partial laminectomy of L3 was performed including bilateral medial facetectomies and foraminotomies addressing severe stenosis. Pedicle screws were then placed in L4-L5 and S1 levels bilaterally with the assistance of fluoroscopy the appropriately sized swapnil placed. By way of a transforaminal approach and left complete discectomy of L5-S1 was performed endplates curetted to subcortical bleeding bone and a 12 x 26 mm peek cage filled with osteo-amp bone graft tapped into position. Then proceeded to L4-[address] of a transforaminal approach and left complete discectomy performed in plate graded to subcortical being bone and a 11 x 26 mm peek cage filled with ostium bone graft tapped in position. The rods were then locked in final position bilaterally. The transverse processes of L4-L5 and sacral ala bur to subcortical bleeding bone. Infuse collagen sponge mass graft and local autograft placed in the posterior lateral gutters. 15 round LUDY drain inserted. Approximately 10 cc of stimulant beads impregnated with vancomycin tobramycin sprinkled throughout the incision. It was then closed with 1 Vicryl in the fascia 2-0 Vicryl substantially and 4-0 Monocryl for final skin closure. Steri-Strip sterile dressings placed. Patient will continue to PACU stable condition. Please note Rachel Monge present all the entire procedure involved the patient positioning complex portions of the surgery and final skin closure. Lastly spinal cord monitoring was utilized that the procedure no changes noted. I attest to the content of the Intraoperative Record and any orders documented therein. Any exceptions are noted below.
--- NOTE | 2019-07-20 14:34 | Fluoroscopy Report ---
FL lumbar spine 2-3V CLINICAL HISTORY: L4-L5, L5-S1 DECOMPRESSION AND FUSION COMPARISON STUDY: 03/19/2019 FLUOROSCOPY TIME: 31 seconds NUMBER OF FLUOROSCOPIC IMAGES: 2 FINDINGS: Image intensifier support for an L4 L5 S1 laminectomy and fusion. IMPRESSION: Image intensifier support for a laminectomy and fusion from L4 through S1. The above report was generated using voice recognition software. It may contain grammatical, syntax or spelling errors. Electronically signed by: Hank Camacho M.D. 07/20/2019 2:33 PM
[2019-07-20] MEDS ORDERED: LABETALOL HCL IV 5 MG/ML 20ML IV ONE (14:42)
--- NOTE | 2019-07-20 15:28 | Anesthesiology Progress Note ---
Date of Service July 20, 2019 Anesthesia Post Procedure Vital Signs Vital Signs: Temp Pulse Pulse Pulse Resp BP Pulse Ox 07/20/19 15:25 36.7 C 61 16 136/54 L 98 07/20/19 15:15 58 L 14 135/49 L 99 07/20/19 15:05 56 L 14 135/72 99 07/20/19 14:55 63 17 155/76 H 100 07/20/19 14:47 37 C 67 12 161/82 H 100 07/20/19 11:04 36.9 C 81 18 141/91 H 94 07/20/19 08:16 36.6 C 86 20 156/68 H 95 07/19/19 22:47 36.4 C L 70 16 111/68 94 Pain Intensity Back: Pain Intensity: 5 Transfer of Care Handoff Completed per policy Notes Mental Status: alert / awake / arousable and participated in evaluation Patient Amnestic to Procedure: Yes Nausea / Vomiting: adequately controlled Pain: adequately controlled Airway Patency, RR, SpO2: stable & adequate BP & HR: stable & adequate Hydration State: stable & adequate Anesthetic Complications: no major complications apparent and Pt Satisfied with anesthetic care
[2019-07-20] MEDS ORDERED: LORazepam 0.5 MG/1 ML VIAL IV PRN (15:54)
[2019-07-20] MEDS ORDERED: ONDANSETRON 4 MG TAB PO PRN (15:54)
[2019-07-20] MEDS ORDERED: SOD PHOSPHATE/SOD BIPHOSPHATE ENEMA 132 ML BTL PR PRN (15:54)
[2019-07-20] MEDS ORDERED: NALOXONE HCL 0.4 MG/1 ML VIAL/CARP IV PRN (15:54)
[2019-07-20] MEDS ORDERED: MAGNESIUM HYDROXIDE SUSP 30 ML UDC PO PRN (15:54)
[2019-07-20] MEDS ORDERED: HYDROmorphone INJ 0.5 MG/0.5 ML SYR IV PRN (15:54)
[2019-07-20] MEDS ORDERED: DO NOT ADMINISTER FLU VACCINE PRN (15:54)
[2019-07-20] MEDS ORDERED: OXYCODONE HCL IR 5 MG TAB (IMMEDIATE RELEASE) PO PRN (15:54)
[2019-07-20] MEDS ORDERED: TRAMADOL HCL 50 MG TABLET PO PRN (15:54)
[2019-07-20] MEDS ORDERED: FAMOTIDINE 20 MG TAB PO PRN (15:54)
[2019-07-20] MEDS ORDERED: ACETAMINOPHEN 1,000 MG/100 ML VIAL IV PRN (15:54)
[2019-07-20] MEDS ORDERED: DO NOT ADMINISTER PNEUMOCOCCAL VACCINE PRN (15:54)
[2019-07-20] MEDS ORDERED: BISACODYL 10 MG SUPP PR PRN (15:54)
[2019-07-20] MEDS ORDERED: LORazepam 0.5 MG TAB PO PRN (15:54)
[2019-07-20] MEDS ORDERED: ACETAMINOPHEN 500 MG TAB PO PRN (15:54)
[2019-07-20] MEDS ORDERED: ALUMINUM/MAGNESIUM SUSP 30 ML UDC PO PRN (15:54)
[2019-07-20] MEDS: SODIUM CHLORIDE 0.9% 1000ML 1,000 ML IV SCH ×2 (16:08→22:17)
[2019-07-20] MEDS ORDERED: INSULIN DETEMIR FLEXPEN/FLEX TOUCH 100 UNITS/ML 3ML SC ONE (16:30)
[2019-07-20] MEDS: CEFAZOLIN 2000MG 2,000 MG/15 ML SYR IV SCH (20:19)
[2019-07-20] MEDS: AMITRIPTYLINE HCL 50 MG TAB PO SCH (20:22)
[2019-07-20] MEDS: DOCUSATE SODIUM/SENNA 50/8.6MG TAB PO SCH (20:24)
[2019-07-20] MEDS ORDERED: INSULIN DETEMIR FLEXPEN/FLEX TOUCH 100 UNITS/ML 3ML SC SCH (21:00)
[2019-07-21] MEDS ORDERED: INSULIN ASPART 100 UNITS/ML 3 ML PEN SC ONE (02:00)
[2019-07-21] MEDS: CEFAZOLIN 2000MG 2,000 MG/15 ML SYR IV SCH (03:49)
[2019-07-21] MEDS: POLYETHYLENE (MIRALAX) 17 GM PACK PO SCH ×4 (05:16→23:23)
[2019-07-21] MEDS: SODIUM CHLORIDE 0.9% 1000ML 1,000 ML IV SCH (05:16)
[2019-07-21 07:10] LABS: Eosinophils # (auto) 0.01 K/uL (0-0.5); Eosinophils % (auto) 0.1 %; Hematocrit (blood only) 30.9 % (37-47); Hemoglobin 9.8 g/dL (12.0-16.0); Immature Granulocytes % (auto) 0.6 %; Lymphocytes # (auto) 0.64 K/uL (1.2-3.4); Lymphocytes % (auto) 4.2 %; Mean Corpuscular Hgb Conc 31.7 g/dL (32-36); Mean Corpuscular Volume 88.3 fL (80-100); Mean Platelet Volume 9.2 fL (7.4-10.4); Monocytes # (auto) 1.16 K/uL (0.11-0.59); Monocytes % (auto) 7.5 %; Neutrophils # (auto) 13.51 K/uL (1.4-6.5); Neutrophils % (auto) 87.6 %; Platelet Count 180 K/uL (130-400); RDW Coefficient of Variation 16.2 % (11.5-14.5); RDW Standard Deviation 52.8 fL (36.4-46.3); White Blood Count 15.42 K/uL (4.8-10.8)
[2019-07-21 07:42] LABS: BUN Creatinine Ratio 37.4 (10-20); Calcium 8.1 mg/dl (8.5-10.1); Creatinine Clr Calc Pharmacy 35.3 ml/min; Est GFR (African American) 33.4; Est GFR (Non-African American) 28.8
[2019-07-21] MEDS: CHOLECALCIFEROL 1,000 UNITS TAB PO SCH (08:10)
[2019-07-21] MEDS: SPIRONOLACTONE 25 MG TAB PO SCH (08:11)
[2019-07-21] MEDS: ROPINIROLE HCL 5 MG TABLET PO SCH ×2 (08:11→20:52)
[2019-07-21] MEDS: METOPROLOL SUCC 50MG EXT REL TAB PO SCH (08:11)
[2019-07-21] MEDS: FUROSEMIDE 40 MG TAB PO SCH ×2 (08:11→16:36)
[2019-07-21] MEDS: HydrALAZINE TAB 50 MG TAB PO SCH ×3 (08:12→20:51)
[2019-07-21] MEDS: ALLOPURINOL 100 MG TAB PO SCH (08:12)
[2019-07-21] MEDS: ROSUVASTATIN CALCIUM 20 MG TAB PO SCH (08:12)
[2019-07-21] MEDS: POTASSIUM CHLORIDE 20 MEQ TABCR PO SCH ×3 (08:12→20:50)
--- NOTE | 2019-07-21 08:20 | Anesthesiology Progress Note ---
Date of Service July 21, 2019 Anesthesia Post Procedure Vital Signs Vital Signs: Temp Pulse Pulse Pulse Resp BP BP 07/21/19 07:10 36.5 C 53 L 20 125/65 07/21/19 02:15 36.5 C 56 L 16 115/64 07/20/19 22:46 36.6 C 72 16 153/71 H 07/20/19 18:36 36.6 C 55 L 16 127/61 07/20/19 17:34 36.4 C L 59 L 18 146/69 H 07/20/19 16:46 36.5 C 56 L 16 154/72 H 07/20/19 16:18 36.4 C L 63 16 124/73 07/20/19 15:37 36.7 C 61 16 146/56 H 07/20/19 15:25 36.7 C 61 16 136/54 L 07/20/19 15:15 58 L 14 135/49 L 07/20/19 15:05 56 L 14 135/72 07/20/19 14:55 63 17 155/76 H 07/20/19 14:47 37 C 67 12 161/82 H 07/20/19 11:04 36.9 C 81 18 141/91 H Pulse Ox 07/21/19 07:10 96 07/21/19 02:15 92 07/20/19 22:46 98 07/20/19 18:36 98 07/20/19 17:34 99 07/20/19 16:46 98 07/20/19 16:18 96 07/20/19 15:37 97 07/20/19 15:25 98 07/20/19 15:15 99 07/20/19 15:05 99 07/20/19 14:55 100 07/20/19 14:47 100 07/20/19 11:04 94 Pain Intensity Back: Pain Intensity: 5 Notes Mental Status: alert / awake / arousable and participated in evaluation Patient Amnestic to Procedure: Yes Nausea / Vomiting: adequately controlled Pain: adequately controlled Airway Patency, RR, SpO2: stable & adequate BP & HR: stable & adequate Hydration State: stable & adequate Anesthetic Complications: no major complications apparent and Pt Satisfied with anesthetic care
[2019-07-21] MEDS: INSULIN ASPART 100 UNITS/ML 3 ML PEN SC SCH ×4 (08:48→20:56)
[2019-07-21] MEDS: INSULIN DETEMIR FLEXPEN/FLEX TOUCH 100 UNITS/ML 3ML SC SCH ×2 (08:49→20:54)
--- NOTE | 2019-07-21 08:54 | Hospitalist Progress Note ---
Date of Service July 21, 2019 Assessment & Plan (1) Spinal stenosis, lumbar region with neurogenic claudication: - Presents with B/L LE weakness with L>R related to spinal stenosis; imaging supports multi-level spinal stenosis most acute in L4-L5 - Has experienced a few falls related to this condition prior to admission - S/P Lumbar Decompression and Fusion on 07/20 and doing well post-operatively - Orthopedics following - appreciate surgical management - PT/OT - appreciate re-evaluation post-operatively to assist with disposition Present on Admission?: Yes (2) CAD (coronary artery disease): - H/O CABG x 2 (2012); Aortic Stenosis; HTN; HLD; Chronic Diastolic CHF; Chronic Atrial Fibrillation - Echo (Nov 2018) - EF 55-60%; mild LVH - Lasix 120 mg BID; Spironolactone 25 mg daily; Hydralazine 50 mg TID; Toprol XL 50 mg daily; Rosuvastatin 40 mg daily - Eliquis on hold - will discuss with ortho about resumption tonight vs later time - Cardiology consulted - cleared for surgical procedure; no ACS symptoms or decompensated CHF Present on Admission?: Yes (3) Chronic atrial fibrillation: - Rate controlled; treatment as above Present on Admission?: Yes (4) Chronic diastolic HF (heart failure): - No acute decompensation - currently at - 3.6 L balance; treatment as above Present on Admission?: Yes (5) Diabetes mellitus: - A1C was 7.6 in May 2019. - Appreciate glycemic management Present on Admission?: Yes (6) CKD (chronic kidney disease) stage 3, GFR 30-59 ml/min: - STABLE - Baseline Cr (1.5-1.7) - Continue to monitor and avoid nephrotoxins when able Present on Admission?: Yes (7) Chronic obstructive pulmonary disease: - No acute exacerbation; Albuterol PRN Present on Admission?: Yes (8) Multiple pulmonary nodules: - Followed as outpatient; H/O lung cancer Present on Admission?: Yes (9) Anemia: - STABLE; monitor post-operatively - currently at 9.8 -- Surgical EBL 300 mL - H/O GI bleed Present on Admission?: Yes (10) Sleep apnea: - CPAP Present on Admission?: Yes (11) Obesity: - BMI 41.2. - Encourage weight loss and exercise. Present on Admission?: Yes (12) DVT prophylaxis: - SCDs; will discuss Eliquis resumption Disposition: Appreciate PT/OT evaluations post-operatively; anticipating [facility] on D/C Subjective Doing well today. Minimal to no pain at surgical site. Continues with some tightness/burning pain of lower extremities but not worsening. Tolerating diet without issue. Anticipating some acute rehab prior to returning home. Having some spikes in BSGs post-operatively Review of Systems Constitutional: no fever and no chills Respiratory: no cough and no dyspnea Cardiovascular: no chest pain, no palpitations and no edema Gastrointestinal: no abdominal pain, no nausea, no vomiting, no constipation and no diarrhea/loose stools Genitourinary: no dysuria Musculoskeletal: + stiffness Integumentary: no rash Neurologic: + tingling and + numbness "burning"/"tight" feeling in lower extremities with L>R Physical Exam Constitutional: WD/WN, vitals as above Eyes: + anicteric sclerae ENMT: Ears: no hearing impairment Neck: normal visual inspection and trachea midline Respiratory: normal respiratory effort, lungs clear to auscultation Cardiovascular: Rate/Rhythm: regular rate and + irregularly irregular Gastrointestinal (Abdomen): Inspection/Auscultation: normal bowel sounds Percussion/Palpation: abdomen soft; abdomen nontender Musculoskeletal: Head/Neck/Chest: normocephalic and head atraumatic Dressing applied to surgical site C/D/I; LUDY drain present with serosang drainage Skin: no rashes, warm and dry Neurologic: moves all extremities Psychiatric: A+Ox3, euthymic affect Results & Data Vital Signs (Past 12 Hours) Vital Signs Temp Pulse Resp BP BP Pulse Ox 07/21/19 07:10 36.5 C 53 L 20 125/65 96 07/21/19 02:15 36.5 C 56 L 16 115/64 92 07/20/19 22:46 36.6 C 72 16 153/71 H 98 PG Care Time/CCT Total # of Minutes Spent Total Time Spent with Patient: Total time spent is greater than 50% in coordination of care (as documented) at patient's floor/unit and/or counseling patient: (1) Anemia Anemia type: unspecified type Qualified Code(s): D64.9 - Anemia, unspecified
--- NOTE | 2019-07-21 10:58 | Orthopedic Progress Note ---
Date of Service July 21, 2019 Assessment & Plan (1) Spinal stenosis, lumbar region with neurogenic claudication: This time we will continue to encourage physical therapy occupational therapy as tolerated. She is an excellent candidate for rehab when ready to be discharged which most likely would be the next few days. Present on Admission?: Yes Subjective Back pain is controlled leg symptoms steadily improved still fairly weak to the left lower extremity. Physical Exam Physical Exam: Patient is bed. She appears very comfortable. Is reasonable strength detailed testing bilateral extremities. Results & Data Vital Signs (Past 12 Hours) Vital Signs Temp Pulse Resp BP BP Pulse Ox 07/21/19 07:10 36.5 C 53 L 20 125/65 96 07/21/19 02:15 36.5 C 56 L 16 115/64 92
[2019-07-21] MEDS ORDERED: INSULIN DETEMIR FLEXPEN/FLEX TOUCH 100 UNITS/ML 3ML SC ONE (12:15)
--- NOTE | 2019-07-21 14:32 | Pharmacy Report ---
Pharmacy Glycemic Short Note 2 - Date of Service July 21, 2019 - Glycemic Short BSG Results (Last 24 hours): 07/20/19 07/20/19 07/20/19 15:01 17:06 20:37 Glucose POC Glucose 142 H 176 H 291 H 07/21/19 07/21/19 07/21/19 02:09 06:58 07:58 Glucose 209 H POC Glucose 201 H 215 H 07/21/19 11:39 Glucose POC Glucose 341 H* OUTPATIENT ANTIDIABETIC REGIMEN: * Levemir 30 units BID * NPH 10 units HS * Novolog, up to 240 units/day * A1c = 7.6 % 05/26/19 ASSESSMENT: 07/21: * Ms. Ramires received 80 units of insulin yesterday (50 of this being basal) * BSG continues to trend up postop, likely contributed by dexamethasone 8mg IV intraop. While fasting BSG this morning remained elevated at 215, an appropriate increase in morning levemir dose was made. * Lunch post prandial BSG was elevated at 341. However, morning novolog was given ~1.5 hrs past due and thus this reading may be somewhat falsely elevated. Will hold off on tightening novolog coverage at this time and watch closely with dinner. An extra 10 units of levemir was given at lunch time due to elevated fasting and lunch post prandial. * Hyperglycemia is likely significantly contributed by intraop steroids. Thus novolog and levemir dosing will likely need to be reduced as that steroid effect wears off 07/20 * Ms. Ramires received 77 units of insulin yesterday (45 of this being basal) * Basal dosing was reduced x 2 doses for NPO status; however, fasting BSG today remains "low" at 76 mg/dL after adequate po intake at each meal yesterday. Will plan to keep reduced basal dosing to prevent further hypoglycemia. * Postprandial BSGs within range so no adjustment to Novolog is necessary * Patient in OR now for spinal surgery. No intraop Decadron administered that I can see but will f/u later today to confirm this. 07/19 * 73 year old female admitted for leg weakness, spinal stenosis. * Pt cleared for lumbar decompression fusion L for 5 L5-S1 scheduled for tomorrow. * Pt with LOW BSG this morning. Will reduce basal insulin dosing by 20% * Will further reduce basal insulin dosing for tonight and tomorrow morning for NPO status for surgery. * Goal is to maintain BSGs <200 mg/dl (ideally <150 mg/dl) to prevent post op complications PLAN FOR INPATIENT GLYCEMIC CONTROL: * Basal insulin - continue with decreased dose used for NPO status * Levemir 30 units this morning * Levemir 10 units at lunch * Levemir per scale this evening * 15,20, or 25 units based on BSG * Bolus insulin - no change * NovoLog per scale ACHS or Q6hrs while NPO * Goal Range: Low 110 mg/dL - High 140 mg/dL * Correction Factor: 10 mg/dL/unit * Nutritional / Prandial insulin per carb ratio of 1 unit per 3 grams CHO consumed Discharge Recommendations: * A1c of 7.6% indicates excellent outpatient control * Continue outpatient regimen on discharge unless patient experiencing hypoglycemia at home
[2019-07-21] MEDS: DOCUSATE SODIUM/SENNA 50/8.6MG TAB PO SCH (20:51)
[2019-07-21] MEDS: AMITRIPTYLINE HCL 50 MG TAB PO SCH (20:52)
[2019-07-22] MEDS ORDERED: INSULIN ASPART 100 UNITS/ML 3 ML PEN SC ONE (02:00)
[2019-07-22] MEDS: POLYETHYLENE (MIRALAX) 17 GM PACK PO SCH ×4 (05:36→23:23)
[2019-07-22 07:21] LABS: Basophils # (auto) 0.01 K/uL (0-0.2); Basophils % (auto) 0.1 %; Eosinophils # (auto) 0.22 K/uL (0-0.5); Eosinophils % (auto) 1.4 %; Hematocrit (blood only) 31.2 % (37-47); Immature Granulocytes # (auto) 0.13 K/uL (0.00-0.02); Immature Granulocytes % (auto) 0.8 %; Lymphocytes # (auto) 1.38 K/uL (1.2-3.4); Lymphocytes % (auto) 8.6 %; Mean Corpuscular Hgb Conc 32.1 g/dL (32-36); Mean Corpuscular Volume 88.4 fL (80-100); Mean Platelet Volume 9.3 fL (7.4-10.4); Monocytes # (auto) 1.91 K/uL (0.11-0.59); Monocytes % (auto) 11.9 %; Neutrophils # (auto) 12.46 K/uL (1.4-6.5); Neutrophils % (auto) 77.2 %; Platelet Count 174 K/uL (130-400); RDW Coefficient of Variation 16.5 % (11.5-14.5); RDW Standard Deviation 53.1 fL (36.4-46.3); Red Blood Count 3.53 M/uL (4.2-5.4); White Blood Count 16.11 K/uL (4.8-10.8)
[2019-07-22] MEDS: SPIRONOLACTONE 25 MG TAB PO SCH (08:33)
[2019-07-22] MEDS: HydrALAZINE TAB 50 MG TAB PO SCH ×3 (08:34→21:51)
[2019-07-22] MEDS: ROSUVASTATIN CALCIUM 20 MG TAB PO SCH (08:35)
[2019-07-22] MEDS: FUROSEMIDE 40 MG TAB PO SCH ×2 (08:35→16:01)
[2019-07-22] MEDS: POTASSIUM CHLORIDE 20 MEQ TABCR PO SCH ×3 (08:35→21:50)
[2019-07-22] MEDS: ROPINIROLE HCL 5 MG TABLET PO SCH ×2 (08:36→21:52)
[2019-07-22] MEDS: METOPROLOL SUCC 50MG EXT REL TAB PO SCH (08:36)
[2019-07-22] MEDS: ALLOPURINOL 100 MG TAB PO SCH (08:37)
[2019-07-22] MEDS: CHOLECALCIFEROL 1,000 UNITS TAB PO SCH (08:37)
[2019-07-22] MEDS: INSULIN ASPART 100 UNITS/ML 3 ML PEN SC SCH ×4 (08:57→21:55)
[2019-07-22] MEDS: INSULIN DETEMIR FLEXPEN/FLEX TOUCH 100 UNITS/ML 3ML SC SCH ×2 (09:12→21:56)
--- NOTE | 2019-07-22 12:38 | Pharmacy Report ---
Pharmacy Glycemic Short Note 2 - Date of Service July 22, 2019 - Glycemic Short BSG Results (Last 24 hours): 07/21/19 07/21/19 07/22/19 17:03 20:45 02:10 POC Glucose 205 H 169 H 140 H 07/22/19 07/22/19 07:55 11:51 POC Glucose 233 H 173 H OUTPATIENT ANTIDIABETIC REGIMEN: * Levemir 30 units BID * NPH 10 units HS * Novolog, up to 240 units/day * A1c = 7.6 % 05/26/19 ASSESSMENT: * Insulin requirements in post-op period significantly increased as compared to previous. However, anticipate insulin sensitivity to increase now that patient is POD 2 and dexamethasone's effects should be dissipating as it was administered >48 hours ago * AM fasting BSG elevated to 233 mg/dL. However, hesitant to be more aggressive as patient had AM hypoglycemia prior to surgery after receiving 56 units of Levemir the previous day. Patient received 60 units yesterday. Will continue slightly higher dose. * Current Novolog parameters appropriate as BSG's did successfully decrease from breakfast to lunch (233 to 173 mg/dL). Patient may require loosening of parameters tomorrow as effects of dexamethasone dissipate PLAN FOR INPATIENT GLYCEMIC CONTROL: * Basal insulin: Levemir 40 units this morning. * Scale tonight based on BS-20 units * Scale ongoing BID starting tomorrow AM based on BS-30 units * Bolus insulin - no change * NovoLog per scale ACHS or Q6hrs while NPO * Goal Range: Low 110 mg/dL - High 140 mg/dL * Correction Factor: 10 mg/dL/unit * Nutritional / Prandial insulin per carb ratio of 1 unit per 3 grams CHO consumed Discharge Recommendations: * A1c of 7.6% indicates excellent outpatient control * Continue outpatient regimen on discharge unless patient experiencing hypoglycemia at home
--- NOTE | 2019-07-22 13:47 | Orthopedic Progress Note ---
Date of Service July 22, 2019 Assessment & Plan (1) Spinal stenosis, lumbar region with neurogenic claudication: Patient is to continue with physical therapy and she is ready for rehab when stable per medicine. Emphasized that she must continue to work at weightbearing rebuild her quadricep strength. This may take several months. Present on Admission?: Yes Subjective Patient's back pain is controlled left leg pain markedly improved. Still struggling with significant weakness. Physical Exam Physical Exam: Exam she is comfortable in bed. She does have evidence of contraction of left quadriceps and sensory improving. But still quite weak. Results & Data Vital Signs (Past 12 Hours) Vital Signs Temp Pulse Resp BP Pulse Ox 07/22/19 07:56 36.9 C 68 16 116/62 94
--- NOTE | 2019-07-22 16:19 | Hospitalist Progress Note ---
Date of Service July 22, 2019 Assessment & Plan (1) Spinal stenosis, lumbar region with neurogenic claudication: - Presents with B/L LE weakness with L>R related to spinal stenosis; imaging supports multi-level spinal stenosis most acute in L4-L5 - Has experienced a few falls related to this condition prior to admission - S/P Lumbar Decompression and Fusion on 07/20 and doing well post-operatively - Orthopedics following - appreciate surgical management - PT/OT - planning on [facility] for rehab (2) CAD (coronary artery disease): - H/O CABG x 2 (2012); Aortic Stenosis; HTN; HLD; Chronic Diastolic CHF; Chronic Atrial Fibrillation - Echo (Nov 2018) - EF 55-60%; mild LVH - Lasix 120 mg BID; Spironolactone 25 mg daily; Hydralazine 50 mg TID; Toprol XL 50 mg daily; Rosuvastatin 40 mg daily - Eliquis to resume tonight - Cardiology consulted - cleared for surgical procedure; no ACS symptoms or decompensated CHF (3) Chronic atrial fibrillation: - Rate controlled; treatment as above (4) Chronic diastolic HF (heart failure): - No acute decompensation - treatment as above (5) Diabetes mellitus: - A1C was 7.6 in May 2019. - Appreciate glycemic management (6) CKD (chronic kidney disease) stage 3, GFR 30-59 ml/min: - STABLE - Baseline Cr (1.5-1.7) - Continue to monitor and avoid nephrotoxins when able (7) Chronic obstructive pulmonary disease: - No acute exacerbation; Albuterol PRN (8) Multiple pulmonary nodules: - Followed as outpatient; H/O lung cancer (9) Anemia: - STABLE; monitor post-operatively - currently at 10 -- Surgical EBL 300 mL - H/O GI bleed (10) Sleep apnea: - CPAP (11) Obesity: - BMI 41.2. - Encourage weight loss and exercise. (12) DVT prophylaxis: - SCDs; Eliquis Disposition: Anticipate D/C to [facility] tomorrow Subjective Reports feeling well and minimal to no pain. However still with significant weakness and limited mobility due to this. Review of Systems Constitutional: + weakness; no fever and no chills Respiratory: no cough and no dyspnea Cardiovascular: no chest pain Gastrointestinal: no abdominal pain, no nausea, no vomiting, no constipation and no diarrhea/loose stools Genitourinary: no dysuria Musculoskeletal: + muscle weakness Integumentary: no rash Neurologic: "burning"/"tight" feeling in lower extremities with L>R - slightly improved Physical Exam Constitutional: WD/WN, vitals as above Eyes: + anicteric sclerae ENMT: Ears: no hearing impairment Neck: normal visual inspection and trachea midline Respiratory: normal respiratory effort, lungs clear to auscultation Cardiovascular: Rate/Rhythm: regular rate and + irregularly irregular Gastrointestinal (Abdomen): Inspection/Auscultation: normal bowel sounds Percussion/Palpation: abdomen soft; abdomen nontender Musculoskeletal: Head/Neck/Chest: normocephalic and head atraumatic Skin: no rashes, warm and dry Neurologic: moves all extremities Psychiatric: A+Ox3, euthymic affect Results & Data Vital Signs (Past 12 Hours) Vital Signs Temp Pulse Pulse Resp BP BP Pulse Ox 07/22/19 15:00 37.0 C 71 18 120/60 93 07/22/19 07:56 36.9 C 68 16 116/62 94 PG Care Time/CCT Total # of Minutes Spent Total Time Spent with Patient: Total time spent is greater than 50% in coordination of care (as documented) at patient's floor/unit and/or counseling patient: (1) Anemia Anemia type: unspecified type Qualified Code(s): D64.9 - Anemia, unspecified
[2019-07-22] MEDS ORDERED: INSULIN DETEMIR FLEXPEN/FLEX TOUCH 100 UNITS/ML 3ML SC SCH (21:00)
[2019-07-22] MEDS: AMITRIPTYLINE HCL 50 MG TAB PO SCH (21:50)
[2019-07-22] MEDS: DOCUSATE SODIUM/SENNA 50/8.6MG TAB PO SCH (21:52)
[2019-07-22] MEDS: APIXABAN 5 MG TABLET PO SCH (21:58)
[2019-07-23] MEDS: POLYETHYLENE (MIRALAX) 17 GM PACK PO SCH ×2 (05:47→13:38)
[2019-07-23 07:26] LABS: Hematocrit (blood only) 33.5 % (37-47); Mean Corpuscular Hgb Conc 32.8 g/dL (32-36); Mean Corpuscular Volume 86.6 fL (80-100); Mean Platelet Volume 9.8 fL (7.4-10.4); Platelet Count 208 K/uL (130-400); RDW Coefficient of Variation 16.5 % (11.5-14.5); RDW Standard Deviation 52.7 fL (36.4-46.3); Red Blood Count 3.87 M/uL (4.2-5.4); White Blood Count 16.45 K/uL (4.8-10.8)
[2019-07-23 08:05] LABS: BUN Creatinine Ratio 32.3 (10-20); Calcium 8.7 mg/dl (8.5-10.1); Creatinine Clr Calc Pharmacy 32.6 ml/min; Est GFR (African American) 30.6; Est GFR (Non-African American) 26.4; Potassium 4.4 mmol/L (3.5-5.1)
--- NOTE | 2019-07-23 08:24 | Orthopedic Progress Note ---
Date of Service July 23, 2019 Assessment & Plan (1) Spinal stenosis, lumbar region with neurogenic claudication: This time we will change the dressing DC drain today. She can transfer to rehab when medically stable. Present on Admission?: Yes Subjective Back pain is controlled. Left leg pain is improved but still quite weak. Physical Exam Physical Exam: On exam she appears comfortable. She has reasonable quadricep activity but certainly not strong enough to bear weight. Results & Data Vital Signs (Past 12 Hours) Vital Signs Temp Pulse Resp BP BP Pulse Ox 07/23/19 07:14 36.8 C 56 L 16 136/73 92 07/22/19 22:59 37.1 C 71 16 135/69 92
[2019-07-23] MEDS: APIXABAN 5 MG TABLET PO SCH (08:25)
[2019-07-23] MEDS: FUROSEMIDE 40 MG TAB PO SCH ×2 (08:26→18:15)
[2019-07-23] MEDS: ROSUVASTATIN CALCIUM 20 MG TAB PO SCH (08:26)
[2019-07-23] MEDS: POTASSIUM CHLORIDE 20 MEQ TABCR PO SCH ×2 (08:26→13:41)
[2019-07-23] MEDS: ALLOPURINOL 100 MG TAB PO SCH (08:27)
[2019-07-23] MEDS: CHOLECALCIFEROL 1,000 UNITS TAB PO SCH (08:27)
[2019-07-23] MEDS: METOPROLOL SUCC 50MG EXT REL TAB PO SCH (08:28)
[2019-07-23] MEDS: SPIRONOLACTONE 25 MG TAB PO SCH (08:28)
[2019-07-23] MEDS: HydrALAZINE TAB 50 MG TAB PO SCH ×2 (08:28→13:41)
[2019-07-23] MEDS: ROPINIROLE HCL 5 MG TABLET PO SCH (08:29)
[2019-07-23] MEDS ORDERED: INSULIN DETEMIR FLEXPEN/FLEX TOUCH 100 UNITS/ML 3ML SC SCH (09:00)
[2019-07-23] MEDS: INSULIN ASPART 100 UNITS/ML 3 ML PEN SC SCH ×3 (09:19→18:27)
--- NOTE | 2019-07-23 12:22 | Cardiology Progress Note ---
Date of Service July 23, 2019 Assessment & Plan (1) CAD (coronary artery disease): The patient underwent a 2 vessel bypass in July 2013. Her coronary artery disease has remained quiescent on her current medical regimen since that time. (2) Chronic diastolic HF (heart failure): The patient carries a history of chronic diastolic CHF which has been well controlled on Lasix and spironolactone. Would avoid extremes of volume during her operative procedure. (3) Aortic stenosis: Mild aortic stenosis with a valve area of 1.9 cm2 on echocardiogram performed in March 2018. This is of no concern for upcoming procedure. (4) Chronic atrial fibrillation: The patient's atrial fibrillation is completely asymptomatic. Her Eliquis has been restarted without difficulty. Subjective The patient is resting comfortably in bed without complaints of chest pain or dyspnea. Postoperative pain is adequately controlled. Physical Exam Physical Exam: In general this is an obese white female in no acute distress. HEENT exam is negative. Neck is supple with full carotid upstrokes. There are no carotid bruits. Jugular venous pressure is flat at 90. There is no thyromegaly. Cardiovascular exam reveals a regular rhythm with a 2/6 basal systolic ejection murmur. No S3. Lungs are clear without rales, rhonchi or wheezes. Abdomen is obese without bruits. Extremities reveal intact radial artery pulses bilaterally. Trace pretibial edema is noted. Results & Data Vital Signs (Past 12 Hours) Vital Signs Temp Pulse Pulse Resp BP BP Pulse Ox 07/23/19 10:41 36.8 C 68 56 L 16 135/69 136/73 92 07/23/19 07:14 36.8 C 56 L 16 136/73 92 PG Care Time/CCT Total # of Minutes Spent Total Time Spent with Patient: Total time spent is greater than 50% in coordination of care (as documented) at patient's floor/unit and/or counseling patient:
--- NOTE | 2019-07-23 18:25 | Discharge Summary ---
Date of Service July 23, 2019 Admission HPI Per Admitting Provider 73-year-old female is accompanied by her requesting further evaluation of bilateral leg weakness. She has had known lumbar stenosis since at least November 2018. She has been seen by her primary care provider as well as Dr. Capone of PM&R to include two local steroid injections, most recently this past summer. She says she was seen in her primary care clinic on July 09 when she was placed on a prednisone taper. She notes no improvement of her symptoms with the steroids but does note her blood sugar became much higher. Steroids have since been completed. She presents overnight stating that she had three "falls" throughout the past 24 hours. They were not falls per se, but more the sense that her legs could not support her weights such that she ended up falling towards the ground. She says she sustained abrasions to her feet and right knee because of this. Denies any more serious direct trauma, focal pains, or passing out. She says she is on track to seen Dr. Kramer of orthopedic spine surgery on August 13 but says her symptoms have been worsening quite a bit since scheduling that appointment. She denies any acute changes in bowel or bladder function, numbness around her bottom, fevers or feeling of recent infection, pains elsewhere, or any other acute concerns. - Past medical history includes hypertension, hyperlipidemia, CAD, ID, aortic stenosis, chronic diastolic CHF, permanent atrial fibrillation, diabetes type 2 with neuropathy, CKD, COPD, pulmonary nodules, lung cancer, toxic multinodular goiter, obesity, sleep apnea, carcinoid tumor, chronic anemia, history of GI bleed, gout, restless leg syndrome, urinary incontinence, fatty liver, TIA. - Past surgical history includes left toe amputation, hysterectomy, bilateral knee replacement, appendectomy, CABG. - Social history includes former smoker. Denies alcohol use. Lives at home with . Principal Diagnosis Lumbar Stenosis with Decompression Discharge Exam Constitutional WD/WN, vitals as above Eyes + anicteric sclerae ENMT Ears: no hearing impairment Neck normal visual inspection and trachea midline Respiratory normal respiratory effort, lungs clear to auscultation Cardiovascular Rate/Rhythm: regular rate and + irregularly irregular Gastrointestinal (Abdomen) Inspection/Auscultation: normal bowel sounds Percussion/Palpation: abdomen soft; abdomen nontender Musculoskeletal Head/Neck/Chest: normocephalic and head atraumatic Skin no rashes, warm and dry Neurologic moves all extremities Psychiatric A+Ox3, euthymic affect Discharge Data Allergies Allergy/AdvReac Type Severity Reaction Status Date / Time NSAIDS (Non-Steroidal Allergy Unknown UNK? Verified 07/17/19 00:21 Anti-Inflamma DENIES SOB. capsaicin AdvReac Severe SHORTNESS Verified 07/17/19 00:21 OF BREATH diclofenac AdvReac Severe SHORTNESS Verified 07/17/19 00:21 OF BREATH Diclopak AdvReac Severe SHORTNESS Verified 07/24/18 10:57 OF BREATH Consultations 07/17/19 02:17 ED Decision to Admit Stat 07/17/19 06:06 Consult Orthopedic Surgery Routine 07/18/19 11:56 Consult Cardiology Routine 07/20/19 15:54 Consult Case Management - Discharge Planning Routine Procedures Performed Operation Date: 07/20/19 12:35 Actual Procedures p Lumbar Decompression Fusion L4-S1 with Spinal Cord Monitoring, Application of Bone Infuse and Allograft, Placement of Interbody L4-L5, L5-S1(Not Applicable) - Rubén Kramer, Ordered Studies 07/17/19 00:03 MR lumbar spine wo con Urgent 07/20/19 14:00 FL fluoroscopy <1hr Routine FL lumbar spine 2-3V Routine Hospital Course (1) Spinal stenosis, lumbar region with neurogenic claudication: - Presents with B/L LE weakness with L>R related to spinal stenosis; i maging supports multi-level spinal stenosis most acute in L4-L5 - Has experienced a few falls related to this condition prior to admission - Reporting improvement in "burning" sensation of legs but still with weakness and likely a component of significant deconditioning - S/P Lumbar Decompression and Fusion on 07/20 and doing well post-operatively - Orthopedics followed - follow-up as outpatient with Dr. Kramer (2) CAD (coronary artery disease): - H/O CABG x 2 (2012); Aortic Stenosis; HTN; HLD; Chronic Diastolic CHF; Chronic Atrial Fibrillation - Echo (Nov 2018) - EF 55-60%; mild LVH - Lasix 120 mg BID; Spironolactone 25 mg daily; Hydralazine 50 mg TID; Toprol XL 50 mg daily; Rosuvastatin 40 mg daily - Eliquis resumed - Cardiology consulted - cleared for surgical procedure; no ACS symptoms or decompensated CHF (3) Chronic atrial fibrillation: - Rate controlled; treatment as above (4) Chronic diastolic HF (heart failure): - No acute decompensation - treatment as above (5) Diabetes mellitus: - A1C was 7.6 in May 2019. (6) CKD (chronic kidney disease) stage 3, GFR 30-59 ml/min: - STABLE - Baseline Cr (1.5-1.8) (7) Chronic obstructive pulmonary disease: - No acute exacerbation; Albuterol PRN (8) Multiple pulmonary nodules: - Followed as outpatient; H/O lung cancer (9) Anemia: - STABLE; monitor post-operatively - currently at 11 -- Surgical EBL 300 mL - H/O GI bleed (10) Sleep apnea: - CPAP (11) Obesity: - BMI 41.2. - Encourage weight loss and exercise. (12) DVT prophylaxis: - SCDs; Eliquis Disposition: [facility] for rehab Total Time Total Time Spent Total Time Spent (In Minutes): Greater than 30 minutes Discharge Plan Discharge Items Patient Disposition: Transfer Inpatient Rehab Fac Reason For Visit: LEG WEAKNESS, SPINAL STENOSIS Discharge Diagnosis: Spinal Stenosis with Left Leg Weakness Discharge Goals: Decrease discomfort, Improve function and Increase independence Activity: Per 'Additional Instructions' section Non-emergency contact: Primary Care Provider Call non-emergency contact if: you have any medication questions, your symptoms worsen and you have a fever Follow-up/Referrals: Jaquelin Crowley MD [Primary Care Provider] - Diet: Carb Consistent or DM2 Addtl Provider Instructions: ACTIVITY RECOMMENDATIONS: SELF CARE INSTRUCTIONS AFTER THORACIC/LUMBAR FUSIONS 1. You may walk to your tolerance. It is good exercise for your legs and back. Expect some back and intermittent leg aches and pains. 2. You may perform "counter-top" level activities (make a sandwich, brittni with a project, etc.). 3. No bending or lifting of more than 10 pounds or back twisting of any nature (roll like a log when turning in bed). 4. You may ride in a car for 20-30 minutes at a time. No driving until after your first visit with your doctor. 5. Frequent changes of position and restricting sitting to 30 minutes at a time will help limit the amount of back spasms and stiffness you may experience. 6. You may discontinue the use of ambulatory aids (cane, crutches, etc.) once your strength and confidence allow. 7. You may bacon skinner the shower and let water strike your incision when you arrive home at least once daily. Do not take a tub bath, sit in a hot tub or go into a swimming pool until after your first recheck in the office. SPECIAL CARE INSTRUCTIONS: VERY IMPORTANT TO READ AND REVIEW A. Your surgical incision has been closed with a cosmetic suture under the skin that will dissolve in about 6 weeks. In 14 days, you can use a pair of clean scissors and cut the suture that is left outside of the skin at the ends of your incision. 1. The small skin tapes can be removed 7 days after surgery if they have not fallen off by that point. 2. You may keep the wound open to air as much as possible to promote healing after post-op day number 5 unless told otherwise by your doctor. 3. If you think the wound looks like it is becoming infected (redness or worsening drainage) and/or you are experiencing fever, chill or worsening back pain and muscle spasms, contact the office so that we may abdoul luate you as soon as possible. B. Complications are uncommon, but please contact us if you have any signs or symptoms of: 1. wound infection (fever higher than 102.5 degrees F, redness, separation of wound, drainage, or increasing pain from the incision) 2. blood clots in legs (pain, swelling, redness and warmth in legs) 3. urinary tract infection (fever higher than 102.5 degrees F, burning upon urination or increased frequency of urination) 4. nerve problems (inability to walk on your toes or heels, numbness, loss of bowel or bladder control) 5. any other symptoms that concern you C. Please call the office at if you have any concerns or questions about your operation or recovery. D. No smoking! Smoking drastically decreases the chance of a solid fusion. E. Do not take any anti-inflammatory medications (Indocin, Advil, Motrin, As pirin, Naprosyn, etc.) as these may inhibit the chance of a solid fusion. Tylenol is okay to take for pain. MANAGING PAIN AFTER SPINAL SURGERY 1. Narcotic medication is intended for short-term use and will be provided for surgical pain. Surgical pain usually lasts for a period of 4-6 weeks. Narcotic medication includes Percocet, Vicodin, Darvocet, Tylenol #3 or Lortab. 2. Longer-term pain is more appropriately treated with non-narcotic medication such as Tylenol ES. 3. Muscle spasm is not appropriately treated with narcotics. Muscle relaxers such as Soma, Flexeril or Skelaxin can be used along with Tylenol ES. 4. Remember that we all live with some "aches and pains". This is not unusual or uncommon after an injury or as we get older. a. Back pain is expected and may include muscle spasms for 4 to 6 weeks after surgery. The pain should gradually improve. If the pain worsens for no apparent reason, please contact the office. b. Intermittent leg pain may also be experienced and should not be concerned about unless it worsens for no apparent reason. If so, please contact the office. 5. We will provide appropriate medication within the normal guidelines of their prescribed use. We will also be very cautious and aware of potential abuse and extended duration of patients' medication needs. a. Pain medications are for your comfort and to assist with sleep and rest so that the tissue can heal. They are not provided in order to return to normal activity and should not be used through the day. To do so or worsening pain at night can result from ongoing tissue damage and development of tolerance to the prescribed medicine. 6. Please allow 2-3 days to process refills. Prescriptions will not be mailed but must be picked up at the office. FOLLOW UP VISIT: Keep your scheduled follow-up appointment. Any questions, please call the office at . (1) Spinal stenosis, lumbar region with neurogenic claudication: - Presents with B/L LE weakness with L>R related to spinal stenosis; imaging supports multi-level spinal stenosis most acute in L4-L5 - Has experienced a few falls related to this condition prior to admission - Continues to have "burning" discomfort in the legs but this is improving; weakness currently about the same - S/P Lumbar Decompression and Fusion on 07/20 and doing well post-operatively; minimal to no pain and has not required any inhouse - Orthopedics followed - please refer to instructions provided by Dr. Kramer above (2) CAD (coronary artery disease): - H/O CABG x 2 (2012); Aortic Stenosis; HTN; HLD; Chronic Diastolic CHF; Chronic Atrial Fibrillation - Echo (Nov 2018) - EF 55-60%; mild LVH - Lasix 120 mg BID; Spironolactone 25 mg daily; Hydralazine 50 mg TID; Toprol XL 50 mg daily; Rosuvastatin 40 mg daily - Eliquis has been resumed (3) Chronic atrial fibrillation: - Rate controlled; treatment as above (4) Chronic diastolic HF (heart failure): - No acute decompensation - treatment as above (5) Diabetes mellitus: - A1C was 7.6 in May 2019. Continue home regimen -- May need to follow facility sliding scale while there pending food intake/meal sizes (6) CKD (chronic kidney disease) stage 3, GFR 30-59 ml/min: - STABLE - Baseline Cr (1.5-1.8) (7) Chronic obstructive pulmonary disease: - No acute exacerbation; Albuterol PRN (8) Multiple pulmonary nodules: - Followed as outpatient (9) Anemia: STABLE; monitor post-operatively - currently at 11 -- Surgical EBL 300 mL - H/O GI bleed in the past Prescriptions: Continued albuterol sulfate [ProAir HFA] 90 mcg/actuation HFA aerosol inhaler 1 - 2 puffs INH Q4H PRN (Reason: Shortness Of Breath Or Wheezing) RF: 0 allopurinol [Zyloprim] 100 mg tablet 200 mg PO QAM RF: 0 hydralazine 50 mg tablet 50 mg PO TID RF: 0 nitroglycerin [Nitrostat] 0.4 mg tablet, sublingual 0.4 mg SL UD PRN (Reason: Chest Pain) RF: 0 rosuvastatin [Crestor] 40 mg tablet 40 mg PO QAM RF: 0 spironolactone 25 mg tablet 25 mg PO QAM RF: 0 metoprolol succinate 50 mg tablet extended release 24 hr 50 mg PO QAM Qty: 90 RF: 4 Eliquis 5 mg tablet 5 mg PO BID Qty: 180 RF: 3 insulin syringe-needle U-100 [CareTouch Insulin Syringe] 1 mL 30 gauge x 5/16 syringe .ROUTE .MEDSUPPLY Qty: 300 RF: 5 furosemide 80 mg tablet 120 mg PO BID Qty: 90 RF: 0 insulin aspart U-100 [Novolog U-100 Insulin aspart] 100 unit/mL solution See Rx Instructions .ROUTE .COMPLEX Qty: 70 RF: 4 OneTouch Verio strip .ROUTE .MEDSUPPLY Qty: 150 RF: 11 magnesium chloride 64 mg tablet,delayed release (DR/EC) 64 mg PO TID RF: 0 cholecalciferol (vitamin D3) [Vitamin D3] 2,000 unit Tablet 2,000 unit PO QAM RF: 0 potassium chloride 20 mEq tablet,ER particles/crystals 20 meq PO TID RF: 0 Novolin N NPH U-100 Insulin 100 unit/mL suspension 10 units subcut HS RF: 0 Levemir U-100 Insulin 100 unit/mL solution 30 units subcut BID RF: 0 amitriptyline 50 mg tablet 50 mg PO HS RF: 0 acetaminophen [Tylenol Extra Strength] 500 mg Tablet 500 mg PO Q6H PRN (Reason: Pain) RF: 0 ropinirole 5 mg tablet 10 mg PO HS RF: 0 ropinirole 5 mg tablet 5 mg PO QAM RF: 0 Stand-Alone Forms: [facility] Discharge Orders: Discharge Order (Routine); Ordered 07/23/19 Ordered By: Estela Jones Skilled Items Patient informed of condition?: Yes DNR: No Discharge Level of Care: Acute rehab Communicable Disease: No Discharge Prognosis: Stable Admission Data Admit Date/Time: 07/19/19 11:21 Attending Provider: Akhil Sandoval Admit Provider: Jony Flores Primary Care Provider: Jaquelin Crowley V. Other Providers: Tai Kam ; Mal Sorenson ; Rubén Kramer ; Jose J Rider Service: Surgical Services Other Interventions: Discharge Summary Assessment (RN) Last Done: 07/23/19 10:41 Pending Studies at Discharge: No DC Date/Time DO NOT enter until pt leaves facility: 07/23/19 19:07 Supervising Physician Co-Signing Physician Notes Attending note: patient seen and examined with Estela Jones PA-C. I agree with her discharge summary. I personally reviewed the labs and imaging findings. Patient doing well from mobility standpoint. She has no pain. Her appetite could be a little better but she is not concerned. She feels ready to go to rehab. - Spinal stenosis, s/p decompression by Dr. Kramer: d/c to acute rehab
== END 2019-07-23 19:07 | DRG 454 ==
LOC: ED 23:13 → 3N 23:13 → SUATTDRO 07-17 03:30 → 3N 07-17 04:41 → SUATTDRO 07-19 11:21

== ENCOUNTER 2019-10-10 09:06 | Inpatient (IN) ==
[2019-10-10 09:35] LABS: Basophils # (auto) 0.01 K/uL (0-0.2); Basophils % (auto) 0.1 %; Eosinophils # (auto) 0.01 K/uL (0-0.5); Eosinophils % (auto) 0.1 %; Hematocrit (blood only) 29.3 % (37-47); Immature Granulocytes # (auto) 0.07 K/uL (0.00-0.02); Immature Granulocytes % (auto) 0.8 %; Lymphocytes # (auto) 0.61 K/uL (1.2-3.4); Lymphocytes % (auto) 6.6 %; Mean Corpuscular Hemoglobin 27.9 pg (25-34); Mean Corpuscular Hgb Conc 30.7 g/dL (32-36); Mean Corpuscular Volume 90.7 fL (80-100); Mean Platelet Volume 8.3 fL (7.4-10.4); Monocytes # (auto) 0.19 K/uL (0.11-0.59); Neutrophils # (auto) 8.39 K/uL (1.4-6.5); Neutrophils % (auto) 90.4 %; Platelet Count 354 K/uL (130-400); RDW Coefficient of Variation 16.2 % (11.5-14.5); Red Blood Count 3.23 M/uL (4.2-5.4); White Blood Count 9.28 K/uL (4.8-10.8)
--- NOTE | 2019-10-10 09:38 | XRay Report ---
XR chest 1V portable CLINICAL HISTORY: hypoglycemia, stroke like symptoms COMPARISON STUDY: 05/24/2019 FINDINGS: The heart is enlarged. There are postsurgical changes of a midline sternotomy. There is jackson vation of interstitium consistent with mild pulmonary vascular congestion. There are postsurgical cora nges present within the right midlung zone with a suture line. There is no lobar consolidation.[ IMPRESSION: 1. Cardiomegaly and mild central pulmonary vascular congestion. No evidence of focal pulmonary consol idation Electronically signed by: Franco Lopez M.D. 10/10/2019 9:37 AM
[2019-10-10 09:47] LABS: INR 1.2 (0.9-1.1); Partial Thromboplastin Time 27.3 Seconds (21.0-31.0); Prothrombin Time 11.9 Seconds (9.0-12.0)
[2019-10-10 09:54] LABS: Alanine Aminotransferase 36 U/L (12-78); Albumin Level 2.9 gm/dl (3.4-5.0); Aspartate Aminotransferase 32 U/L (15-37); BUN Creatinine Ratio 26.6 (10-20); Blood Urea Nitrogen 42 mg/dl (7-18); Calcium 10.1 mg/dl (8.5-10.1); Carbon Dioxide 31 mmol/L (21-32); Chloride 100 mmol/L (98-107); Est GFR (African American) 36.7; Est GFR (Non-African American) 31.7; Glucose 89 mg/dl (70-99); Magnesium 2.5 mg/dl (1.8-2.4); Potassium 4.5 mmol/L (3.5-5.1); Sodium 139 mmol/L (136-145)
[2019-10-10 09:59] LABS: Albumin Globulin Ratio 0.6 (0.9-2); Alkaline Phosphatase 107 U/L (45-117); Bilirubin,Total 0.7 mg/dl (0.2-1); Globulin 4.8 gm/dl (2.5-4.0); Total Protein 7.7 gm/dl (6.4-8.2); Troponin I 0.034 ng/ml (0-0.045)
--- NOTE | 2019-10-10 10:04 | CT Scan Report ---
CT head/brain wo con CLINICAL HISTORY: Strokelike symptoms. COMPARISON STUDY: 05/24/2019 TECHNIQUE: Axial CT of the brain is performed from the vertex to the skull base. IV contrast was not administered for this examination. A dose lowering technique was utilized adhering to the principles of ALARA. CT DOSE: 537.48 mGy.cm FINDINGS: No intra or extra-axial mass lesions are visualized. There is no CT evidence of acute cortical infarc tion. There is no evidence of midline shift. There is no acute hemorrhage. No calvarial fractures ar e visualized. There are patchy white matter hypodensities likely on a small vessel basis. 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 There is no evidence of pathologic ventricular dilatation. There is no evidence of acute sinusitis IMPRESSION: No acute intracranial findings Electronically signed by: Franco Lopez M.D. 10/10/2019 10:03 AM
[2019-10-10] MEDS: SODIUM CHLORIDE 0.9% 1000ML 1,000 ML IV SCH (10:55)
[2019-10-10 12:20] LABS: Appearance Urine Cloudy (Clear); Bacteria Urine Automated 4+ (Negative); Bilirubin Urine Negative (Negative); Blood Urine Negative (Negative); Color Urine Yellow; Glucose Urine UA Negative (Negative); Ketones Urine Negative (Negative); Leukocyte Esterase Urine 3+ (Negative); Nitrite Urine Positive (Negative); Protein Urine Negative (Negative); RBC Urine Automated 0-4 /hpf (0-4); Specific Gravity Urine 1.012 (1.000-1.030); Urobilinogen Urine Negative (Negative); WBC Urine Automated >30 /hpf (0-5); pH Urine 8.5 (4.5-7.5)
--- NOTE | 2019-10-10 12:43 | History & Physical Report ---
Date of Service October 10, 2019 Assessment & Plan (1) Stroke-like symptoms: - Admit to tele - Stroke order set completed - Allow for permissive HTN for now - Neuro consulted, neurochecks q2h, - PT/OT consults - Speech to evaluate, aspiration precautions -A1c 6.3 as of approximately 1 month ago, no need to rechecked -Lipid panel fasting with a.m. labs (2) Atrial fibrillation: - Continue Eliquis 5 mg BID, metoprolol succ 50 mg QAM, spironolactone 25 mg QAM - EKG reviewed (3) CHF (congestive heart failure): - Consider cardiology heart failure clinic referral while inpt as she follows as an outpt. - Daily weights, low sodium diet - Follows with Dr. Cortes as an outpatient - Cont lasix 40 mg BID -Last echo completed 09/11/2017 showing low normal overall LV systolic function, left ventricular hypertrophy, biatrial dilation, moderate right ventricular dilatation, moderate right ventricular systolic dysfunction, trace pulmonic regurg, moderate mitral regurg, moderate to severe tricuspid regurg, severe pulmonary hypertension, elevated central venous pressure - Consider repeat echo during this admission (4) Hypertension: -Continue diuretics as above, will continue metoprolol to avoid rebound tachycardia, hold hydralazine to allow for permissive hypertension, BP 145/64. May resume hydralazine for SBP>200 or DBP>100, will also await neurology recommendations and change accordingly. (5) Hyperlipidemia: -Continue rosuvastatin 40 mg every morning (6) Lung cancer: - S/p thoacocentesis with carcinoid tumor diagnosed Jul 2016 - Pulmonary nodules being followed via imaging completed annually, appear benign (7) Diabetes mellitus: - Pt was hypoglycemic prior to arrival, noted at 63 when EMS got to her home and then the patient drank juice with improvement up into the mid 80s. - Glycemic pharmacy consulted, ISS, follow with accuchecks achs - DM/HH diet - Last a1c=6.3 on 09/09/19, no need to recheck (8) Diabetic foot ulcer: -diabetic foot ulceration being followed by wound clinic, Dr. Yun is embedded developer -Continue Bactrim for diabetic foot ulceration -Wound consulted during hospital stay (9) Gout: -Stable (10) CKD (chronic kidney disease), stage III: - Cr. = 1.58, appears to be around her baseline. (11) Osteopenia: -Continue supplementation with vitamin D (12) Osteoarthritis involving multiple joints on both sides of body: (13) Obesity (BMI 30-39.9): - BMI of 37.6, diet and exercise to be encouraged prior to discharge (14) Hypomagnesemia: - Hx of such, Mag= 2.5 upon arrival, can continue PO mag starting next dose as missed morning and early afternoon doses. - Follow with am labs (15) Sarcopenia: - Albumin level of 2.9, likely adding to nonhealing diabetic wound. Nutritional supplementation ordered, recommend Boost QID, at least give at HS to reduce the catabolic effect overnight. (16) Indwelling Wilson catheter present: - Placed s/p back surgery in July 2019 due to not being able to walk. - Recently exchanged by urology on 10/06/19 - UA today appears dirty but no urinary sx. Pt also on Bactrim which was started yesterday by wound service for foot ulcerations, so this will likely cover any organism present in urine. Follow UCx, can change abx per sensitivity. (17) DVT prophylaxis: Teds, SCDs, continue Eliquis CODE STATUS: Full Disco: Patient from home, lives with , PT/OT to evaluate, CM to assist with discharge planning, likely to remain in the hospital x1 to 2 days History of Present Illness Primary Care Provider: Jaquelin Crowley MD This is a 74 yo F with PMHx of Afib on coumadin, chronic diastolic CHF, CAD s/p CABG x 2 ( [place] to LAD, SVG to PDA in July 2013) hx of AR, HTN, HLD, DM II, hypoglycemia, CKD stage III, RLS, anemia, gout, sleep apnea, spinal stenosis, chronic indwelling catheter, and hx of lung cancer s/p right middle lobectomy on 07/09/16, who presents with acute stroke-like sx. the patient's and daughter present at bedside. notes that when he went into the patient's room at approximately 6:30 in the morning to wake her up she did not respond appropriately. Her speech was slurred, and she was leaning towards the left side and unable to move her upper left extremity. He called his daughter who then proceeded to come to the house, by 7:20 AM. Her blood glucose was 63 as she has a known history of becoming hypoglycemic, they gave her at orange juice and a small candy bar which increased glucose into the mid 80s. She continued to have difficulty with slurred speech as well as a slight left-sided facial droop. EMS was called and patient was brought to the ER. At time of evaluation of the patient her symptoms have nearly resolved, she is able to speak without difficulty. She is able to move her left arm and there is no facial droop. She denies any acute complaints. CT the head is negative. CTA of the head and neck are in process. Allergies Allergy/AdvReac Type Severity Reaction Status Date / Time NSAIDS (Non-Steroidal Allergy Unknown UNK? Verified 10/10/19 09:56 Anti-Inflamma DENIES SOB. capsaicin AdvReac Severe SHORTNESS Verified 10/10/19 09:56 OF BREATH diclofenac AdvReac Severe SHORTNESS Verified 10/10/19 09:56 OF BREATH Diclopak AdvReac Severe SHORTNESS Verified 07/24/18 10:57 OF BREATH Home Medications Home Medications Medication Instructions Recorded Confirmed Type albuterol sulfate HFA 90 1 - 2 puffs INH Q4H PRN gm 07/30/18 10/10/19 History mcg/actuation aerosol inhaler hydralazine 50 mg tablet 50 mg PO TID 07/30/18 10/10/19 History nitroglycerin 0.4 mg sublingual 0.4 mg SL UD PRN tab 07/30/18 10/10/19 History tablet rosuvastatin 40 mg tablet 40 mg PO QAM tab 07/30/18 10/10/19 History spironolactone 25 mg tablet 25 mg PO QAM tab 07/30/18 10/10/19 History cholecalciferol (vitamin D3) 2,000 unit PO QAM 10/13/18 10/10/19 History [Vitamin D3] acetaminophen [Tylenol Extra 500 mg PO Q6H PRN 05/24/19 10/10/19 History Strength] amitriptyline 50 mg PO HS 05/24/19 10/10/19 History magnesium 64 mg (magnesium 64 mg PO TID tab 06/02/19 10/10/19 History chloride) tablet,delayed release apixaban 5 mg tablet 5 mg PO BID #180 tab 06/18/19 10/10/19 Rx metoprolol succinate ER 50 mg 50 mg PO QAM #90 tab 06/18/19 10/10/19 Rx tablet,extended release 24 hr insulin syringe U-100 with needle #300 ea 07/15/19 10/10/19 Rx 1 mL 30 gauge x 04/16" blood sugar diagnostic strips #150 ea 07/17/19 10/10/19 Rx melatonin 3 mg capsule 3 mg PO HS #1 cap 08/14/19 10/10/19 Rx sennosides 8.6 mg tablet 8.6 mg PO BID #1 tab 08/14/19 10/10/19 Rx potassium chloride ER 20 mEq 20 meq PO TID tab 08/19/19 10/10/19 History tablet,extended release(part/cryst) insulin aspart U- 100 100 unit/mL See Rx Instructions SUBCUT 08/27/19 10/10/19 History subcutaneous solution .COMPLEX ml insulin detemir (U- 100) 100 30 units SUBCUT BID ml 08/27/19 10/10/19 History unit/mL subcutaneous solution ropinirole 5 mg tablet See Rx Instructions PO QAM tab 09/17/19 10/10/19 History furosemide 40 mg tablet 40 mg PO BID #60 tab 09/24/19 10/10/19 Rx insulin NPH isophane U- 100 human 10 units SUBCUT QPM 90 Days #9 ml 10/02/19 10/10/19 Rx 100 unit/mL subcutaneous suspension sulfamethoxazole 400 1 tab PO BID 14 Days #28 tab 10/08/19 10/10/19 Rx mg-trimethoprim 80 mg tablet allopurinol [Zyloprim] 100 mg PO QAM 10/10/19 10/10/19 History collagenase clostridium histo. 1 applic TOP BID 10/10/19 10/10/19 History [Santyl] Past Med/Surg History Medical History Vitamin D deficiency (Chronic) Hypertension (Chronic) Chronic kidney disease, stage 3 (Chronic) Anemia (Resolved) Callus (Resolved) History of hypotension (Resolved) Abscess of right genital labia Acquired claw toe of left foot Acquired hallux valgus of right foot Acquired hammer toe of right foot Atrial fibrillation DX > 6 YEARS AGO - ON ELIQUIS - FOLLOW W/ DR. CORTES CAD (coronary artery disease) CHF (congestive heart failure) Chronic atrial fibrillation Chronic obstructive pulmonary disease Clostridium difficile infection DX [facility] 11/2018 - TREATED - REPORTS CONTINUED DIARRHEA - STOOL SPECIMEN PROVIDED TO PCP OFFICE 01/12/19. RESULTS PENDING Degenerative joint disease of right elbow Diabetes mellitus Diabetes mellitus, type 2 IDDM Diabetic foot ulcer associated with type 2 diabetes mellitus Fatty liver Gout Hallux valgus (acquired), left foot Lumbar spinal stenosis Severe at L4-5 Lung cancer S/P SURGERY Myocardial Infarction 2012 Neuropathic ulcer of toe of right foot Osteoarthritis Restless leg syndrome Sleep apnea CPAP Status post amputation of toe of left foot Syncope Transient ischemic attack (TIA) 2005 Type 2 diabetes mellitus with diabetic neuropathy Surgical History History of back surgery (Acute) H/O: hysterectomy History of amputation LEFT 3RD TOE History of appendectomy History of appendectomy History of bilateral knee replacement History of bronchoscopy History of cardiac cath 2012 - [facility] - [place] - NO STENTS/ANGIOPLASTY -- > CABG - FOLLOWS W/ DR. CORTES History of cholecystectomy History of colonoscopy 11/2018 [facility] History of esophagogastroduodenoscopy (EGD) 11/2018 [facility] History of hysterectomy with oophorectomy History of lobectomy of lung RML History of ovarian cystectomy History of surgery VATS PROCEDURE History of total knee replacement BL History of tubal ligation Hx of CABG 2012 - - [place] - [place] - 2 VESSELS - FOLLOWS W/ DR. 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 current occupational status: retired Other Information That Helps Us Care for You: No Feels Safe at Home: Yes Safety Concerns: Feels Safe At This Time Smoking Status: Never smoker Tobacco Type: cigarettes ; Cigarettes Per Day: 10 ; Second Hand Exposure: No ; Hx Alcohol Use: No Hx Substance Use: No Review of Systems Review of Systems: Constitutional: No fever, sweats or chills Eyes: No diplopia, no worsening or blurred vision ENT: normal hearing, no trouble swallowing Respiratory: No cough, sputum, dyspnea at rest or on exertion Cardiovascular: No chest pain, tightness or palpitations Abdomen: No pain, nausea, vomiting, diarrhea or constipation Musculoskeletal: No joint pain, calf pain, swelling Neurologic: No weakness,+ chronic inability to walk x 2 mo s/p back surgery, +BLE numbness/tingling, + indwelling catheter Psychiatric: No anxiety or depression Skin: No rash or itch Physical Exam Physical Exam: General: awake, alert, no apparent distress Head: Normocephalic, atraumatic ENT: PERRL, EOMI, no pharyngeal exudate, mucous membranes moist Chest: Clear to auscultation, on room air, no adventitious breath sounds Cardiac: Irregularly irregular, rate controlled, + faint CLOVER, no JVD, appears euvolemic, normal peripheral pulses, good capillary refill Abdominal: NABS x 4 quadrants, soft, nondistended, nontender to palpation, no rebound, guarding or tenderness Extremities: Normal inspection, no peripheral edema or erythema, + unable to move legs at all, RLE in waffle boot, + ulcerations on right foot, calfs nontender to palpation Psych: Normal mood and affect Neuro: AAO x 3, strength intact bilateral upper extremities and rated 5/5, patient unable to move legs bilaterally at all, rated as a 0 out of 5, has been chronic since having back surgery approximately 2 months ago, no facial droop, no slurred speech, no dysarthria, no difficulty word finding, speech is clear, +bilateral lower extremity peripheral sensory deficits, unable to feel light touch on feet or ankles, dulled sensation over anterior tibial region Constitutional: WD/WN, vitals as above Eyes: normal visual colin by confrontation and + anicteric sclerae Neck: normal visual inspection and trachea midline Respiratory: normal respiratory effort, lungs clear to auscultation Cardiovascular: Rate/Rhythm: regular rate and regular rhythm Gastrointestinal (Abdomen): Inspection/Auscultation: abdomen not distended Percussion/Palpation: abdomen soft; abdomen nontender Musculoskeletal: Head/Neck/Chest: normocephalic and head atraumatic Neg for peripheral LE edema, + pedal pulses Skin: no rashes, warm and dry Neurologic: CN's II-XI intact bilaterally and awake; not confused Speech / Cognition: normal speech able to move UE without issue, no slurring of speech Psychiatric: A+Ox3, euthymic affect Lymphatic: Exam as done by Doretha Mojica DO Results & Data Vital Signs (Past 12 Hours) Vital Signs Temp Pulse Pulse Resp BP BP Pulse Ox 10/10/19 10:55 36.4 C L 60 18 145/64 H 97 10/10/19 09:06 67 18 166/73 H [address] angio neck with con CLINICAL HISTORY: stroke like symptoms COMPARISON STUDY: No previous studies for comparison. TECHNIQUE: CT angiography was performed from the aortic arch to the skull base. MIP imaging was performed. The patient was scanned in a dynamic helical fashion during intravenous administration of 119 cc of Optiray 320. A dose lowering technique was utilized adhering to the principles of ALARA. CT DOSE: 539.05 mGy.cm Technique: CT angiogram of the carotid and vertebral arteries was obtained using intravenous contrast and 3-D reconstruction. NASCET criteria was utilized. Findings: There is a multinodular thyroid goiter. Multiple nodules demonstrate calcifications. There is a borderline enlarged right paratracheal lymph node measuring 9 mm in short axis. There are moderate atheromatous changes within the common carotid with calcified plaque. There is calcified plaque at the level of the right carotid bulb. There is no evidence of hemodynamic significant carotid stenosis. There is moderate calcific plaque at the level of the cavernous carotid and supraclinoid carotid. There is moderate calcified plaque at the level left carotid bulb. There is a less than 30% diameter stenosis. There is no evidence of hemodynamic significant left common and internal carotid artery stenosis. There is no evidence of dissection. There is calcified plaque at the level of the cavernous and supraclinoid carotid. There are mild vertebral and basilar atherosclerotic calcifications. The left vertebral artery originates separately from the aortic arch. There is no evidence of hemodynamic significant vertebral artery stenosis. There is no evidence of dissection. IMPRESSION: No evidence of hemodynamically significant carotid or vertebral artery stenosis. No evidence of dissection. CT angio head w con CLINICAL HISTORY: stroke like symptoms TECHNIQUE: CT angiography of the head was performed in a dynamic helical fashion during intravenous administration of 119 cc of Optiray 320. MIP imaging was performed. A dose lowering technique was utilized adhering to the principles of ALARA. CT DOSE: COMPARISON STUDY: Noncontrast head CT dated 10/20/2019 FINDINGS: There is no evidence for major intracranial branch occlusion. The dural venous sinuses appear patent. There are no pathologically enhancing masses. There are atheromatous calcifications within the cavernous and supraclinoid internal carotids. There is a 3 mm aneurysm of the right middle cerebral artery at the level of the sylvian fissure IMPRESSION: 1. 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 No evidence of intracranial branch occlusion or major intracranial stenosis. 2. No evidence of dural venous sinus thrombosis ECG Additional Comments: 10-OCT-2019 09:15:01 [facility]-EDSTAT ROUTINE RETRIEVAL Atrial fibrillation Left axis deviation Non-specific intra-ventricular conduction block Abnormal ECG When compared with ECG of 16-JUL-2019 23:17, T wave inversion no longer evident in Lateral leads 25mm/s 10mm/mV 150Hz 9.0.9 12SL 241 DONNY: 10 Referred by: REFERRED SELF Unconfirmed Vent. rate 66 BPM CO interval * ms QRS duration 134 ms QT/QTc 498/522 ms P-R-T axes * -53 65 Supervising Physician Co-Signing Physician Notes Pt seen and examined by me. States that she was at her usual yesterday, but had sudden onset of slurred speech and L UE numbness and tingling. BS at that time was 63. Family gave her orange juice and called EMS. EMS checked BS at that time and it was 80. Pt has hx of hypoglycemia, but not with sx like this. Denies chest pain or SOB. Has been tolerating PO without issue and is hungry now. Agree with HPI/ROS as noted by PA See above for my exam in PE section Agree with plan as outlined above Sx have fully resolved, likely related to hypoglycemia vs TIA vs CVA CT, CTA head/neck WNL MRI pending Bactrim for DM wounds UA noted with chronic indwelling wilson, will continue with bactrim for now and await cx results PG Care Time/CCT Total # of Minutes Spent Total Time Spent with Patient: Total time spent is greater than 50% in coordination of care (as documented) at patient's floor/unit and/or counseling patient:
[2019-10-10] MEDS ORDERED: PHARMACIST DISCHARGE MED REC CONSULT PRN (12:52)
[2019-10-10] MEDS ORDERED: OPTIRAY 320 125ml IV PRN (13:00)
--- NOTE | 2019-10-10 13:10 | CT Scan Report ---
CT angio neck with con CLINICAL HISTORY: stroke like symptoms COMPARISON STUDY: No previous studies for comparison. TECHNIQUE: CT angiography was performed from the aortic arch to the skull base. MIP imaging was perfo rmed. The patient was scanned in a dynamic helical fashion during intravenous administration of 119 c c of Optiray 320. A dose lowering technique was utilized adhering to the principles of ALARA. CT DOSE: 539.05 mGy.cm Technique: CT angiogram of the carotid and vertebral arteries was obtained using intravenous contrast and 3-D reconstruction. NASCET criteria was utilized. Findings: There is a multinodular thyroid goiter. Multiple nodules demonstrate calcifications. There is a borde rline enlarged right paratracheal lymph node measuring 9 mm in short axis. There are moderate atheromatous changes within the common carotid with calcified plaque. There is katia cified plaque at the level of the right carotid bulb. There is no evidence of hemodynamic significant carotid stenosis. There is moderate calcific plaque at the level of the cavernous carotid and suprac linoid carotid. There is moderate calcified plaque at the level left carotid bulb. There is a less than 30% diameter stenosis. There is no evidence of hemodynamic significant left common and internal carotid artery darryl nosis. There is no evidence of dissection. There is calcified plaque at the level of the cavernous an d supraclinoid carotid. There are mild vertebral and basilar atherosclerotic calcifications. The left vertebral artery origin ates separately from the aortic arch. There is no evidence of hemodynamic significant vertebral arter y stenosis. There is no evidence of dissection. IMPRESSION: No evidence of hemodynamically significant carotid or vertebral artery stenosis. No evidence of disse ction. Electronically signed by: Franco Lopez M.D. 10/10/2019 1:08 PM
--- NOTE | 2019-10-10 13:14 | CT Scan Report ---
CT angio head w con CLINICAL HISTORY: stroke like symptoms TECHNIQUE: CT angiography of the head was performed in a dynamic helical fashion during intravenous a dministration of 119 cc of Optiray 320. MIP imaging was performed. A dose lowering technique was util ized adhering to the principles of ALARA. CT DOSE: COMPARISON STUDY: Noncontrast head CT dated 10/20/2019 FINDINGS: There is no evidence for major intracranial branch occlusion. The dural venous sinuses appe ar patent. There are no pathologically enhancing masses. There are atheromatous calcifications within the cavernous and supraclinoid internal carotids. There is a 3 mm aneurysm of the right middle cereb ral artery at the level of the sylvian fissure IMPRESSION: 1. 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 No evidence of intracranial branch occlusion or major intracranial stenosis. 2. No evidence of dural venous sinus thrombosis Electronically signed by: Franco Lopez M.D. 10/10/2019 1:12 PM
[2019-10-10] MEDS ORDERED: MAGNESIUM SULFATE / D5W 1 GM/100 ML BAG IV ONE (13:17)
[2019-10-10] MEDS ORDERED: CARBOHYDRATES FOR HYPOGLYCEMIA PO PRN (14:01)
[2019-10-10] MEDS ORDERED: GLUCAGON FOR INJ 1 MG VIAL SQ PRN (14:01)
[2019-10-10] MEDS ORDERED: GLUCOSE 10 TABS/TUBE PO PRN (14:01)
[2019-10-10] MEDS ORDERED: GLUCOSE 40% GEL 15 GM TUBE PO PRN (14:01)
[2019-10-10] MEDS ORDERED: DEXTROSE 50% 50 ML SYRINGE IV PRN (14:01)
[2019-10-10] MEDS ORDERED: ACETAMINOPHEN 500 MG TAB PO PRN (14:01)
[2019-10-10] MEDS ORDERED: ALBUTEROL HFA 8 GM INHALER INH PRN (14:01)
[2019-10-10] MEDS ORDERED: NITROGLYCERIN SL 0.4 MG/TAB TAB SL PRN (14:01)
[2019-10-10] MEDS ORDERED: PHARMACY GLYCEMIC MGMT CONSULT PRN (14:14)
--- NOTE | 2019-10-10 14:22 | Pharmacy Report ---
Glycemic Control Consultation - Date of Service October 10, 2019 - Scope Scope: Glycemic Pharmacist consulted by Sahra Holm on 10/10/19 for glycemic control and to write orders per [facility] inpatient glycemic control protocol - Objective Weight: 104.7 kg Accuchecks BSG (last 24hrs): 10/10/19 10/10/19 09:25 09:30 Glucose 89 POC Glucose 90 Laboratory Data (last 24hrs): 10/10/19 09:25 Potassium 4.5 Carbon Dioxide 31 Anion Gap 8.0 Creatinine 1.58 H Est Cr Clr Drug Dosing Not Reportable - Recent Pertinent Medications Outpatient Anti-diabetic Regimen: * Levemir 30 units SQ BID + NPH 10 units qPM + Novolog with meals () * A1c = 6.3 % 09/09/19 Risk Factors for Insulin Resistance: * Diet: NPO - Assessment & Plan Assessment & Plan: ASSESSMENT: * Ms Ramires is a 74 y/o F with a PMH of extremely well controlled T2DM who presents with acute stroke-like symptoms. Patient was hypoglycemic when found by EMS. Recovered with OJ. * Patient's blood sugar on admission was 90 mg/dL. Per previous data, patient typically requires around 50 units of basal plus Novolog CF 15 CR 5. This generally produces excellent glycemic control. Will re-order Novolog with goal range 140-180 mg/dL since NPO. Will order Levemir for this evening - hold if blood sugar below 140 mg/dL. I believe that once blood sugar greater than that the patient's hypoglycemia is resolved an half doses of Levemir is appropriate. PLAN FOR INPATIENT GLYCEMIC CONTROL: * Basal insulin * Levemir 0-25 units SQ BID * 0 units if blood sugar under 140 mg/dL * 15 units if blood sugar 140-180 mg/dL * 25 units if blood sugar greater than 180 mg/dL * Bolus insulin * NovoLog per scale ACHS or Q6hrs while NPO * Goal Range: Low 140 mg/dL - High 180 mg/dL * Correction Factor: 15 mg/dL/unit * Nutritional / Prandial insulin per carb ratio of 1 unit per 5 grams CHO consumed * Please note that the plan above was derived based on current level of insulin resistance and hospital stress. These recommendations are appropriate for inpatient admission only. Plan of care upon discharge will need to be reassessed to avoid potential outpatient hypo/hyperglycemia. Thank you.
[2019-10-10] MEDS: POTASSIUM CHLORIDE 20 MEQ TABCR PO SCH ×2 (15:21→20:37)
[2019-10-10] MEDS: SULFA/TRIMETH 400/80MG TAB PO SCH ×2 (15:21→22:44)
[2019-10-10] MEDS: MAGNESIUM CHLORIDE 64MG DELAYED REL TAB PO SCH ×2 (15:21→20:36)
[2019-10-10] MEDS: ROPINIROLE HCL 5 MG TABLET PO SCH (15:21)
--- NOTE | 2019-10-10 15:39 | Emergency Department Note ---
Entered by Lynn Welch acting as a scribe for ED Provider Note CHIEF COMPLAINT: Stroke-like symptoms HISTORY OF PRESENT ILLNESS: The patient is a 74 year old female who presents to the Emergency Room with complaints of an episode of stroke-like symptoms that started this morning around 0730 and resolved within 30 minutes. The patient reports that she has been asymptomatic for the past 72 minutes. She states that she was experiencing slurred speech, confusion, and tingling and numbness in her left upper extremity. She notes that she has a history of insulin-dependent diabetes. She states that she was found to have a blood glucose level of 63mg/dL by her family during the episode, which is much lower than her baseline around 140mg/dL. She notes that her family gave her orange juice and she felt better. She reports that she felt asymptomatic once EMS arrived. She notes that her blood glucose was 80mg/dL when the bus company manager arrived. The patient reports that she is on bed rest following a back surgery for spinal stenosis in 07/2019. She notes that she has a Soto catheter in place and denies any issues with it at this moment. She states that she has chronic numbness and tingling in her lower extremities. She reports some spasms in her lower legs, which is chronic. The patient reports that she has a history of a TIA at an unreported date. She states that she takes Elliquis secondary to a history of atrial fibrillation. She notes that she has a history of CAD. Pt denies LOC, headache, fevers, chills, diaphoresis, visual changes, neck pain, chest pain, breathing difficulties, nausea, vomiting, abdominal pain, back pain, melena, hematochezia, urinary symptoms, lymphadenopathy, rash, or other complaints. REVIEW OF SYSTEMS: See HPI for pertinent positives and negatives. A total of ten systems were reviewed and were otherwise negative. PMHx/PSHx: CAD, DMII, spinal stenosis, chronic leg numbness and weakness, Soto catheter pl acement, CKD, HTN, TIA, atrial fibrillation, COPD, CHF; CABG, back surgery, cardiac catheterization, hysterectomy, cholecystectomy, appendectomy, bilateral knee replacement SOCIAL HISTORY: Patient lives at home. She is retired and . PHYSICAL EXAM: GENERAL: Awake, alert, well-appearing, in no distress HENT: Normocephalic, atraumatic. Oropharynx unremarkable. EYES: PERRL. Normal conjunctiva. Sclera non-icteric. NECK: Inspection normal. Non-tender. Supple. No nuchal rigidity. FROM. No masses. RESPIRATORY: Clear to auscultation. No wheezes. No rales. Normal respiratory effort. CARDIAC: Borderline tachycardic rate. Irregular rhythm. No murmurs. No rubs. Extremities warm and well perfused. Pulses equal. No JVD. GI: Soft, non-distended. No tenderness to palpation. No rebound or guarding. No masses. RECTAL: Deferred. MUSCULOSKELETAL: Atraumatic. Chest examination reveals no tenderness. The back is symmetrical on inspection without obvious abnormality. There is no CVA tenderness to palpation. No joint edema. LOWER EXTREMITIES: Calves are equal size bilaterally and non-tender. No edema. No discoloration. Subjective tingling in legs which is chronic. NEURO: Normal sensorium. No sensory or motor deficits noted. SKIN: No rash or jaundice noted. EMERGENCY DEPARTMENT COURSE: 0912: The patient was evaluated in room B07, and a complete history and physical examination were performed. 1205: I discussed the patients case with Dr. Costa, Neurology, who recommended a CTA of the head and neck. She recommended the patient be kept in the hospital for further observation. 1215: Upon reevaluation, the patient is resting comfortably. I discussed laboratory and radiographic results with the patient. She verbalized agreement of the treatment plan. The patient will be evaluated for further management and care. 1217: I discussed the patients case with Dr. Mojica, [facility] Hospitalist, who will evaluate the patient for further management and care. 1335: I spoke with Sahra Holm PA-C [facility], about the patient's abnormal urinalysis results. The patient will continue Bactrim that she started taking yesterday. MEDICAL DECISION MAKING: Prior records/ancillary studies reviewed. Nursing notes reviewed and agree them. Additional history obtained from family. The patient's history was concerning for strokelike symptoms and hypoglycemia. Differential diagnosis: Etiologies such as CVA, TIA, metabolic, infection, hypo/hyperglycemia, electrolyte abnormalities, cardiac sources, intracerebral event, toxicologic, neurologic, as well as others were entertained. Physical examination: As above. ER treatment provided: IV Lock Saline hydration On reassessment the patient felt well. Diagnostics interpretation by me: ECG: No acute ischemia. The labs revealed an unremarkable CBC except for mild anemia which is at [facility]. Chemistry panel was unremarkable. Urinalysis did show some signs concerning for infection. The patient has recently been started on Bactrim. Imaging studies: CT scan of the head reveals an old CVA but no acute findings. CT angiography of the head and neck revealed no focal stenosis. Incidental 3 mm aneurysm noted. Chest x-ray was negative for acute process. Consultation: The patient had 30 minutes of strokelike symptoms. She had some borderline hypoglycemia. She does have a history of what she describes as TIA however there is an old infarct on CT imaging. A consultation was placed with Dr. Costa of neurology. She recommended CT angiography of the head and neck and admission for further stroke work-up. Patient is not a TPA candidate as she has no symptoms at this time and is currently anticoagulated. A consultation was placed with the hospitalist. The case was discussed and diagnostics were reviewed. The patient was evaluated in the ER for further treatment. IMPRESSION: Stroke-like symptoms, hypoglycemia PLAN: Being evaluated by a hospitalist. The scribe's documentation has been prepared under my direction and personally reviewed by me in its entirety. I confirm that the note above accurately reflects all work, treatment, procedures, and medical decision making performed by me. Impression & Plan Stroke-like symptoms, Hypoglycemia Past Med/Surg History Medical History Vitamin D deficiency (Chronic) Hypertension (Chronic) Chronic kidney disease, stage 3 (Chronic) Anemia (Resolved) Callus (Resolved) History of hypotension (Resolved) Abscess of right genital labia Acquired claw toe of left foot Acquired hallux valgus of right foot Acquired hammer toe of right foot Atrial fibrillation DX > 6 YEARS AGO - ON ELIQUIS - FOLLOW W/ DR. CORTES CAD (coronary artery disease) CHF (congestive heart failure) Chronic atrial fibrillation Chronic obstructive pulmonary disease Clostridium difficile infection DX [facility] 11/2018 - TREATED - REPORTS CONTINUED DIARRHEA - STOOL SPECIMEN PROVIDED TO PCP OFFICE 01/12/19. RESULTS PENDING Degenerative joint disease of right elbow Diabetes mellitus Diabetes mellitus, type 2 IDDM Diabetic foot ulcer associated with type 2 diabetes mellitus Fatty liver Gout Hallux valgus (acquired), left foot Lumbar spinal stenosis Severe at L4-5 Lung cancer S/P SURGERY Myocardial Infarction 2012 Neuropathic ulcer of toe of right foot Osteoarthritis Restless leg syndrome Sleep apnea CPAP Status post amputation of toe of left foot Syncope Transient ischemic attack (TIA) 2006 Type 2 diabetes mellitus with diabetic neuropathy Surgical History History of back surgery (Acute) H/O: hysterectomy History of amputation LEFT 3RD TOE History of appendectomy History of appendectomy History of bilateral knee replacement History of bronchoscopy History of cardiac cath 2012 - [facility] - [place] - NO STENTS/ANGIOPLASTY -- > CABG - FOLLOWS W/ DR. CORTES History of cholecystectomy History of colonoscopy 11/2018 [facility] History of esophagogastroduodenoscopy (EGD) 11/2018 [facility] History of hysterectomy with oophorectomy History of lobectomy of lung RML History of ovarian cystectomy History of surgery VATS PROCEDURE History of total knee replacement BL History of tubal ligation Hx of CABG 2012 - - [place] - [facility] - 2 VESSELS - FOLLOWS W/ DR. CORTES Family History Daughter Family history of diabetes mellitus Mother Heart disease Hypertension Myocardial infarction Father Hypertension Social History Preferred Language: Uzbek Communication Ability: Effective Visual Impairment: No Limitations Hearing Ability: Normal Plasma Specialist Required: No Beliefs That Will Affect Care: None marital status: Current Living Situation: Spouse Current Living Situation Comment: Live with . current occupational status: retired Other Information That Helps Us Care for You: No Feels Safe at Home: Yes Safety Concerns: Feels Safe At This Time Smoking Status: Never smoker Tobacco Type: cigarettes ; Cigarettes Per Day: 10 ; Second Hand Exposure: No ; Hx Alcohol Use: No Hx Substance Use: No Results & Data Vital Signs Vital Signs - 24 hr 10/10/19 09:06 10/10/19 10:55 Temperature 36.4 C L Temperature Source Oral Oral Sepsis Recent Fever Within 48 Hours No Sepsis New/Unexplained Change in Mental Status No Sepsis Action Taken by Nursing No Action Required Pulse Rate 67 Pulse Rate [Apical] 60 Pulse Rhythm Irregular Pulse Rhythm [Apical] Irregular Pulse Strength Normal Pulse Strength [Apical] Normal Respiratory Rate 18 18 Respiratory Effort / Characteristics Non-Labored Spontaneous Non-Labored Spontaneous Respiratory Depth Normal Normal Respiratory Pattern Regular Regular Blood Pressure 166/73 H Blood Pressure [Right Arm] 145/64 H Blood Pressure Mean 104 Blood Pressure Mean [Right Arm] 91 Blood Pressure Position Sitting Blood Pressure Position [Right Arm] Sitting Pulse Oximetry 97 97 Oxygen Delivery Method Room Air Room Air Home Medications Current Medication List: was personally reviewed by me Laboratory Data Attestation: I reviewed the patient's lab results. Result diagrams: 10/10/19 09:25 10/10/19 09:25 Lab Results 10/10/19 10/10/19 10/10/19 Range/Units 09:25 09:25 09:25 WBC 9.28 (4.8-10.8) K/uL RBC 3.23 L (4.2-5.4) M/uL Hgb 9.0 L (12.0-16.0) g/dL Hct 29.3 L (37-47) % MCV 90.7 (80-100) fL MCH 27.9 (25-34) pg MCHC 30.7 L (32-36) g/dL RDW Std Deviation 54.0 H (36.4-46.3) fL RDW Coeff of Lelo 16.2 H (11.5-14.5) % Plt Count 354 (130-400) K/uL MPV 8.3 (7.4-10.4) fL Immature Gran % (Auto) 0.8 % Neut % (Auto) 90.4 % Lymph % (Auto) 6.6 % Davis % (Auto) 2.0 % Eos % (Auto) 0.1 % Baso % (Auto) 0.1 % Immature Gran # (Auto) 0.07 H (0.00-0.02) K/uL Neut # (Auto) 8.39 H (1.4-6.5) K/uL Lymph # (Auto) 0.61 L (1.2-3.4) K/uL Davis # (Auto) 0.19 (0.11-0.59) K/uL Eos # (Auto) 0.01 (0-0.5) K/uL Baso # (Auto) 0.01 (0-0.2) K/uL PT 11.9 (9.0-12.0) Seconds INR 1.2 H (0.9-1.1) APTT 27.3 (21.0-31.0) Seconds PTT Ratio 1.0 Sodium 139 (136-145) mmol/L Potassium 4.5 (3.5-5.1) mmol/L Chloride 100 (98-107) mmol/L Carbon Dioxide 31 (21-32) mmol/L Anion Gap 8.0 (3-11) BUN 42 H (7-18) mg/dl Creatinine 1.58 H (0.6-1.2) mg/dl Est Cr Clr Drug Dosing Not Reportable Est GFR ( Amer) 36.7 Est GFR (Non-Af Amer) 31.7 BUN/Creatinine Ratio 26.6 H (10-20) Glucose 89 (70-99) mg/dl POC Glucose (70-99) Calcium 10.1 (8.5-10.1) mg/dl Magnesium 2.5 H (1.8-2.4) mg/dl Total Bilirubin 0.7 (0.2-1) mg/dl AST 32 (15-37) U/L ALT 36 (12-78) U/L Alkaline Phosphatase 107 (45-117) U/L Troponin I 0.034 (0-0.045) ng/ml Total Protein 7.7 (6.4-8.2) gm/dl Albumin 2.9 L (3.4-5.0) gm/dl Globulin 4.8 H (2.5-4.0) gm/dl Albumin/Globulin Ratio 0.6 L (0.9-2) Urine Color Urine Appearance (Clear) Urine pH (4.5-7.5) Ur Specific [place] (1.000-1.030) Urine Protein (Negative) Urine Glucose (UA) (Negative) Urine Ketones (Negative) Urine Blood (Negative) Urine Nitrite (Negative) Urine Bilirubin (Negative) Urine Urobilinogen (Negative) Ur Leukocyte Esterase (Negative) Urine WBC (Auto) (0-5) /hpf Urine RBC (Auto) (0-4) /hpf U Hyaline Cast (Auto) (0-5) /lpf U Epithel Cells (Auto) (0-5) /lpf Urine Bacteria (Auto) (Negative) 10/10/19 10/10/19 Range/Units 09:30 12:10 WBC (4.8-10.8) K/uL RBC (4.2-5.4) M/uL Hgb (12.0-16.0) g/dL Hct (37-47) % MCV (80-100) fL MCH (25-34) pg MCHC (32-36) g/dL RDW Std Deviation (36.4-46.3) fL RDW Coeff of Lelo (11.5-14.5) % Plt Count (130-400) K/uL MPV (7.4-10.4) fL Immature Gran % (Auto) % Neut % (Auto) % Lymph % (Auto) % Davis % (Auto) % Eos % (Auto) % Baso % (Auto) % Immature Gran # (Auto) (0.00-0.02) K/uL Neut # (Auto) (1.4-6.5) K/uL Lymph # (Auto) (1.2-3.4) K/uL Davis # (Auto) (0.11-0.59) K/uL Eos # (Auto) (0-0.5) K/uL Baso # (Auto) (0-0.2) K/uL PT (9.0-12.0) Seconds INR (0.9-1.1) APTT (21.0-31.0) Seconds PTT Ratio Sodium (136-145) mmol/L Potassium (3.5-5.1) mmol/L Chloride (98-107) mmol/L Carbon Dioxide (21-32) mmol/L Anion Gap (3-11) BUN (7-18) mg/dl Creatinine (0.6-1.2) mg/dl Est Cr Clr Drug Dosing Est GFR ( Amer) Est GFR (Non-Af Amer) BUN/Creatinine Ratio (10-20) Glucose (70-99) mg/dl POC Glucose 90 (70-99) Calcium (8.5-10.1) mg/dl Magnesium (1.8-2.4) mg/dl Total Bilirubin (0.2-1) mg/dl AST (15-37) U/L ALT (12-78) U/L Alkaline Phosphatase (45-117) U/L Troponin I (0-0.045) ng/ml Total Protein (6.4-8.2) gm/dl Albumin (3.4-5.0) gm/dl Globulin (2.5-4.0) gm/dl Albumin/Globulin Ratio (0.9-2) Urine Color Yellow Urine Appearance Cloudy A (Clear) Urine pH 8.5 H (4.5-7.5) Ur Specific [place] 1.012 (1.000-1.030) Urine Protein Negative (Negative) Urine Glucose (UA) Negative (Negative) Urine Ketones Negative (Negative) Urine Blood Negative (Negative) Urine Nitrite Positive A (Negative) Urine Bilirubin Negative (Negative) Urine Urobilinogen Negative (Negative) Ur Leukocyte Esterase 3+ H (Negative) Urine WBC (Auto) >30 H (0-5) /hpf Urine RBC (Auto) 0-4 (0-4) /hpf U Hyaline Cast (Auto) 10-30 H (0-5) /lpf U Epithel Cells (Auto) 10-20 H (0-5) /lpf Urine Bacteria (Auto) 4+ H (Negative) Administered Medications Sodium Chloride (Nss 1000ml) 1,000 mls @ 50 mls/hr IV .Q20H [facility] Stop: 11/09/19 09:29 Last Admin: 10/10/19 10:55 Dose: 50 mls/hr Documented by: [id number] Ioversol (Optiray 320 125ml) 119 ml IV ONCE PRN PRN Reason: Interaction Checking Stop: 10/14/19 12:59 Last Admin: 10/10/19 13:00 Dose: 119 ml Documented by: [id number] Magnesium Chloride (Slow-Mag) 64 mg PO TID [facility] Stop: 11/09/19 14:00 Last Admin: 10/10/19 15:21 Dose: 64 mg Documented by: [id number] Potassium Chloride (Klor-Con M20) 20 meq PO TID [facility] Stop: 11/09/19 14:00 Last Admin: 10/10/19 15:21 Dose: 20 meq Documented by: [id number] Ropinirole HCl (Requip) 10 mg PO Q24H [facility] Stop: 11/09/19 13:59 Last Admin: 10/10/19 15:21 Dose: 10 mg Documented by: [id number] Trimethoprim/Sulfamethoxazole (Septra 400/80mg Tab) 1 tab PO BID [facility] Stop: 10/23/19 14:59 Last Admin: 10/10/19 15:21 Dose: 1 tab Documented by: [id number] Imaging Data Radiologist's Impression: Radiology results as stated below per my review and the radiologist's interpretation: XR chest 1V portable CLINICAL HISTORY: hypoglycemia, stroke like symptoms COMPARISON STUDY: 05/24/2019 FINDINGS: The heart is enlarged. There are postsurgical changes of a midline sternotomy. There is elevation of interstitium consistent with mild pulmonary vascular congestion. There are postsurgical changes present within the right midlung zone with a suture line. There is no lobar consolidation.[ IMPRESSION: 1. Cardiomegaly and mild central pulmonary vascular congestion. No evidence of focal pulmonary consolidation Electronically signed by: Franco Lopez M.D. 10/10/2019 9:[address] head/brain wo con CLINICAL HISTORY: Strokelike symptoms. COMPARISON STUDY: 05/24/2019 TECHNIQUE: Axial CT of the brain is performed from the vertex to the skull base. IV contrast was not administered for this examination. A dose lowering technique was utilized adhering to the principles of ALARA. CT DOSE: 537.48 mGy.cm FINDINGS: No intra or extra-axial mass lesions are visualized. There is no CT evidence of acute cortical infarction. There is no evidence of midline shift. There is no acute hemorrhage. No calvarial fractures are visualized. There are patchy white matter hypodensities likely on a small vessel basis. There is an old left frontal lobe infarct. There is no evidence of pathologic ventricular dilatation. There is no evidence of acute sinusitis IMPRESSION: No acute intracranial findings Electronically signed by: Franco Lopez M.D. 10/10/2019 10:[address] angio neck with con CLINICAL HISTORY: stroke like symptoms COMPARISON STUDY: No previous studies for comparison. TECHNIQUE: CT angiography was performed from the aortic arch to the skull base. MIP imaging was performed. The patient was scanned in a dynamic helical fashion during intravenous administration of 119 cc of Optiray 320. A dose lowering technique was utilized adhering to the principles of ALARA. CT DOSE: 539.05 mGy.cm Technique: CT angiogram of the carotid and vertebral arteries was obtained using intravenous contrast and 3-D reconstruction. NASCET criteria was utilized. Findings: There is a multinodular thyroid goiter. Multiple nodules demonstrate calcific ations. There is a borderline enlarged right paratracheal lymph node measuring 9 mm in short axis. There are moderate atheromatous changes within the common carotid with calcified plaque. There is calcified plaque at the level of the right carotid bulb. There is no evidence of hemodynamic significant carotid stenosis. There is moderate calcific plaque at the level of the cavernous carotid and supraclinoid carotid. There is moderate calcified plaque at the level left carotid bulb. There is a le ss than 30% diameter stenosis. There is no evidence of hemodynamic significant left common and internal carotid artery stenosis. There is no evidence of dissection. There is calcified plaque at the level of the cavernous and supraclinoid carotid. There are mild vertebral and basilar atherosclerotic calcifications. The left vertebral artery originates separately from the aortic arch. There is no ev idence of hemodynamic significant vertebral artery stenosis. There is no evidence of dissection. IMPRESSION: No evidence of hemodynamically significant carotid or vertebral artery stenosis. No evidence of dissection. Electronically signed by: Franco Lopez M.D. 10/10/2019 1:[address] angio head w con CLINICAL HISTORY: stroke like symptoms TECHNIQUE: CT angiography of the head was performed in a dynamic helical fashion during intravenous administration of 119 cc of Optiray 320. MIP imaging was performed. A dose lowering technique was utilized adhering to the principles of ALARA. CT DOSE: COMPARISON STUDY: Noncontrast head CT dated 10/20/2019 FINDINGS: There is no evidence for major intracranial branch occlusion. The dural venous sinuses appear patent. There are no pathologically enhancing masses. There are atheromatous calcifications within the cavernous and supraclinoid internal carotids. There is a 3 mm aneurysm of the right middle cerebral artery at the level of the sylvian fissure IMPRESSION: 1. 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 No evidence of intracranial branch occlusion or major intracranial stenosis. 2. No evidence of dural venous sinus thrombosis Electronically signed by: Franco Lopez M.D. 10/10/2019 1:12 PM ECG Data Attestation: I personally reviewed and interpreted this ECG as follows: Indication: altered mental status Rate (beats per minute): 66 Rhythm: atrial fibrillation Findings: + other (non-specific intraventricular block) and + left axis deviation; no PVC, no ST depression and no ST elevation Blood Pressure Blood Pressure Findings: Elevated blood pressure Blood Pressure Disposition: Referred to patients primary care provider Medical Decision Making Medical Records Attestation: I reviewed the patient's medical records. Home Medications Current Medication List: was personally reviewed by sd Laboratory Data Attestation: I reviewed the patient's lab results. Result diagrams: 10/10/19 09:25 10/10/19 09:25 Lab Results 10/10/19 10/10/19 10/10/19 Range/Units 09:25 09:25 09:25 WBC 9.28 (4.8-10.8) K/uL RBC 3.23 L (4.2-5.4) M/uL Hgb 9.0 L (12.0-16.0) g/dL Hct 29.3 L (37-47) % MCV 90.7 (80-100) fL MCH 27.9 (25-34) pg MCHC 30.7 L (32-36) g/dL RDW Std Deviation 54.0 H (36.4-46.3) fL RDW Coeff of Lelo 16.2 H (11.5-14.5) % Plt Count 354 (130-400) K/uL MPV 8.3 (7.4-10.4) fL Immature Gran % (Auto) 0.8 % Neut % (Auto) 90.4 % Lymph % (Auto) 6.6 % Davis % (Auto) 2.0 % Eos % (Auto) 0.1 % Baso % (Auto) 0.1 % Immature Gran # (Auto) 0.07 H (0.00-0.02) K/uL Neut # (Auto) 8.39 H (1.4-6.5) K/uL Lymph # (Auto) 0.61 L (1.2-3.4) K/uL Davis # (Auto) 0.19 (0.11-0.59) K/uL Eos # (Auto) 0.01 (0-0.5) K/uL Baso # (Auto) 0.01 (0-0.2) K/uL PT 11.9 (9.0-12.0) Seconds INR 1.2 H (0.9-1.1) APTT 27.3 (21.0-31.0) Seconds PTT Ratio 1.0 Sodium 139 (136-145) mmol/L Potassium 4.5 (3.5-5.1) mmol/L Chloride 100 (98-107) mmol/L Carbon Dioxide 31 (21-32) mmol/L Anion Gap 8.0 (3-11) BUN 42 H (7-18) mg/dl Creatinine 1.58 H (0.6-1.2) mg/dl Est Cr Clr Drug Dosing Not Reportable Est GFR ( Amer) 36.7 Est GFR (Non-Af Amer) 31.7 BUN/Creatinine Ratio 26.6 H (10-20) Glucose 89 (70-99) mg/dl POC Glucose (70-99) Calcium 10.1 (8.5-10.1) mg/dl Magnesium 2.5 H (1.8-2.4) mg/dl Total Bilirubin 0.7 (0.2-1) mg/dl AST 32 (15-37) U/L ALT 36 (12-78) U/L Alkaline Phosphatase 107 (45-117) U/L Troponin I 0.034 (0-0.045) ng/ml Total Protein 7.7 (6.4-8.2) gm/dl Albumin 2.9 L (3.4-5.0) gm/dl Globulin 4.8 H (2.5-4.0) gm/dl Albumin/Globulin Ratio 0.6 L (0.9-2) Urine Color Urine Appearance (Clear) Urine pH (4.5-7.5) Ur Specific [place] (1.000-1.030) Urine Protein (Negative) Urine Glucose (UA) (Negative) Urine Ketones (Negative) Urine Blood (Negative) Urine Nitrite (Negative) Urine Bilirubin (Negative) Urine Urobilinogen (Negative) Ur Leukocyte Esterase (Negative) Urine WBC (Auto) (0-5) /hpf Urine RBC (Auto) (0-4) /hpf U Hyaline Cast (Auto) (0-5) /lpf U Epithel Cells (Auto) (0-5) /lpf Urine Bacteria (Auto) (Negative) 10/10/19 10/10/19 Range/Units 09:30 12:10 WBC (4.8-10.8) K/uL RBC (4.2-5.4) M/uL Hgb (12.0-16.0) g/dL Hct (37-47) % MCV (80-100) fL MCH (25-34) pg MCHC (32-36) g/dL RDW Std Deviation (36.4-46.3) fL RDW Coeff of Lelo (11.5-14.5) % Plt Count (130-400) K/uL MPV (7.4-10.4) fL Immature Gran % (Auto) % Neut % (Auto) % Lymph % (Auto) % Davis % (Auto) % Eos % (Auto) % Baso % (Auto) % Immature Gran # (Auto) (0.00-0.02) K/uL Neut # (Auto) (1.4-6.5) K/uL Lymph # (Auto) (1.2-3.4) K/uL Davis # (Auto) (0.11-0.59) K/uL Eos # (Auto) (0-0.5) K/uL Baso # (Auto) (0-0.2) K/uL PT (9.0-12.0) Seconds INR (0.9-1.1) APTT (21.0-31.0) Seconds PTT Ratio Sodium (136-145) mmol/L Potassium (3.5-5.1) mmol/L Chloride (98-107) mmol/L Carbon Dioxide (21-32) mmol/L Anion Gap (3-11) BUN (7-18) mg/dl Creatinine (0.6-1.2) mg/dl Est Cr Clr Drug Dosing Est GFR ( Amer) Est GFR (Non-Af Amer) BUN/Creatinine Ratio (10-20) Glucose (70-99) mg/dl POC Glucose 90 (70-99) Calcium (8.5-10.1) mg/dl Magnesium (1.8-2.4) mg/dl Total Bilirubin (0.2-1) mg/dl AST (15-37) U/L ALT (12-78) U/L Alkaline Phosphatase (45-117) U/L Troponin I (0-0.045) ng/ml Total Protein (6.4-8.2) gm/dl Albumin (3.4-5.0) gm/dl Globulin (2.5-4.0) gm/dl Albumin/Globulin Ratio (0.9-2) Urine Color Yellow Urine Appearance Cloudy A (Clear) Urine pH 8.5 H (4.5-7.5) Ur Specific [place] 1.012 (1.000-1.030) Urine Protein Negative (Negative) Urine Glucose (UA) Negative (Negative) Urine Ketones Negative (Negative) Urine Blood Negative (Negative) Urine Nitrite Positive A (Negative) Urine Bilirubin Negative (Negative) Urine Urobilinogen Negative (Negative) Ur Leukocyte Esterase 3+ H (Negative) Urine WBC (Auto) >30 H (0-5) /hpf Urine RBC (Auto) 0-4 (0-4) /hpf U Hyaline Cast (Auto) 10-30 H (0-5) /lpf U Epithel Cells (Auto) 10-20 H (0-5) /lpf Urine Bacteria (Auto) 4+ H (Negative) ECG Data Attestation: I personally reviewed and interpreted this ECG as follows: Indication: + altered mental status Rate (beats per minute): 66 Rhythm: + atrial fibrillation Blood Pressure Blood Pressure Findings: Elevated blood pressure Blood Pressure Disposition: Referred to patients primary care provider MDM Narrative Discharge Plan Visit Data *Final* Discharge Date/Time: 10/10/19 13:36 Chief Complaint: Stroke/CVA Symptoms Stated Complaint: stroke symptoms/ eval ED Provider: Gurdeep Caldwell Discharge Problem: Stroke-like symptoms, Hypoglycemia Patient Disposition: Admitted As Inpatient Discharge Instructions Interventions: ED Discharge Assessment Last Done: 10/10/19 13:36 The scribe's documentation has been prepared under my direction and personally reviewed by me in its entirety. I confirm that the note above accurately reflects all work, treatment, procedures, and medical decision making performed by me.
[2019-10-10] MEDS: FUROSEMIDE 40 MG TAB PO SCH (17:17)
[2019-10-10] MEDS ORDERED: INSULIN ASPART 100 UNITS/ML 3 ML PEN SC SCH (18:00)
[2019-10-10] MEDS ORDERED: Nursing to Pharmacy Communication ONE (20:32)
[2019-10-10] MEDS: COLLAGENASE OINT 30 GM TUBE TOP SCH (20:35)
[2019-10-10] MEDS: APIXABAN 5 MG TABLET PO SCH (20:36)
[2019-10-10] MEDS: AMITRIPTYLINE HCL 50 MG TAB PO SCH (20:36)
[2019-10-10] MEDS: SENNA 8.6 MG TAB PO SCH (20:37)
[2019-10-10] MEDS ORDERED: [UNRECOGNIZED DRUG - OTHER] SQ SCH (21:00)
[2019-10-10] MEDS ORDERED: INSULIN DETEMIR U SQ SCH (21:00)
[2019-10-10] MEDS ORDERED: INSULIN ISOPHANE SQ SCH (21:00)
[2019-10-10] MEDS: INSULIN ASPART 100 UNITS/ML 3 ML PEN SC SCH (21:32)
[2019-10-10] MEDS: INSULIN DETEMIR FLEXPEN/FLEX TOUCH 100 UNITS/ML 3ML SC SCH (21:34)
[2019-10-11 05:47] LABS: Basophils # (auto) 0.04 K/uL (0-0.2); Basophils % (auto) 0.5 %; Eosinophils # (auto) 0.12 K/uL (0-0.5); Eosinophils % (auto) 1.4 %; Hematocrit (blood only) 27.4 % (37-47); Hemoglobin 8.4 g/dL (12.0-16.0); Immature Granulocytes # (auto) 0.05 K/uL (0.00-0.02); Immature Granulocytes % (auto) 0.6 %; Lymphocytes # (auto) 1.35 K/uL (1.2-3.4); Lymphocytes % (auto) 15.7 %; Mean Corpuscular Hemoglobin 27.9 pg (25-34); Mean Corpuscular Hgb Conc 30.7 g/dL (32-36); Mean Platelet Volume 8.5 fL (7.4-10.4); Monocytes # (auto) 0.66 K/uL (0.11-0.59); Monocytes % (auto) 7.7 %; Neutrophils # (auto) 6.38 K/uL (1.4-6.5); Neutrophils % (auto) 74.1 %; Platelet Count 340 K/uL (130-400); RDW Coefficient of Variation 16.8 % (11.5-14.5); RDW Standard Deviation 55.8 fL (36.4-46.3); Red Blood Count 3.01 M/uL (4.2-5.4)
[2019-10-11 06:19] LABS: BUN Creatinine Ratio 24.4 (10-20); Calcium 9.6 mg/dl (8.5-10.1); Creatinine Clr Calc Pharmacy 33.4 ml/min; Est GFR (African American) 32.4; Potassium 4.7 mmol/L (3.5-5.1)
[2019-10-11] MEDS: SODIUM CHLORIDE 0.9% 1000ML 1,000 ML IV SCH (08:13)
[2019-10-11] MEDS: INSULIN ASPART 100 UNITS/ML 3 ML PEN SC SCH ×4 (08:14→21:37)
[2019-10-11] MEDS: SULFA/TRIMETH 400/80MG TAB PO SCH ×2 (08:15→21:40)
[2019-10-11] MEDS: INSULIN DETEMIR FLEXPEN/FLEX TOUCH 100 UNITS/ML 3ML SC SCH ×2 (08:15→21:39)
[2019-10-11] MEDS: POTASSIUM CHLORIDE 20 MEQ TABCR PO SCH ×3 (08:16→21:35)
[2019-10-11] MEDS: FUROSEMIDE 40 MG TAB PO SCH (08:16)
[2019-10-11] MEDS: ROSUVASTATIN CALCIUM 20 MG TAB PO SCH (08:16)
[2019-10-11] MEDS: APIXABAN 5 MG TABLET PO SCH (08:16)
[2019-10-11] MEDS: METOPROLOL SUCC 50MG EXT REL TAB PO SCH (08:16)
[2019-10-11] MEDS: ALLOPURINOL 100 MG TAB PO SCH (08:16)
[2019-10-11] MEDS: ROPINIROLE HCL 5 MG TABLET PO SCH ×3 (08:17→21:35)
[2019-10-11] MEDS: CHOLECALCIFEROL 1,000 UNITS TAB PO SCH (08:17)
[2019-10-11] MEDS: MAGNESIUM CHLORIDE 64MG DELAYED REL TAB PO SCH ×3 (08:17→21:40)
[2019-10-11] MEDS: SPIRONOLACTONE 25 MG TAB PO SCH (08:17)
[2019-10-11] MEDS: SENNA 8.6 MG TAB PO SCH ×2 (08:19→21:41)
[2019-10-11] MEDS: COLLAGENASE OINT 30 GM TUBE TOP SCH ×2 (08:19→21:40)
--- NOTE | 2019-10-11 08:32 | Pharmacy Report ---
Glycemic Control Progress Note - Date of Service October 11, 2019 - Scope Glycemic Pharmacist consulted for glycemic control to write orders per [facility] inpatient glycemic control protocol. - Objective Accuchecks BSG(last 24 hours):: 10/10/19 10/10/19 10/10/19 09:25 09:30 16:28 Glucose 89 POC Glucose 90 145 H 10/10/19 10/11/19 10/11/19 20:02 05:24 07:44 Glucose 139 H POC Glucose 210 H 146 H - Recent Pertinent Medications The patient is currently receiving: * Basal insulin: Lantus 0-25 units every 12 hours * Correctional Insulin: Novolog Correction per scale ACHS Goal Range: Low 120 mg/dL - High 160 mg/dL Correction Factor: 15 mg/dL/unit * Prandial insulin: Per carb ratio of 1 unit per 5 grams CHO consumed - Outpatient Anti-Diabetic Meds LEVEMIR 30 UNITS BID NPH 10 UNITS AT BEDTIME NOVOLOG - Assessment & Plan ASSESSMENT: * See progress note from 10/10/19 for more background info, in short: * Pt receiving SQ basal bolus insulin regimen for hyperglycemia secondary to baseline DM (outpatient regimen on hold). Patient has resumed diet. * Patient is currently receiving an average of 40 units of insulin per day * 25 units of basal insulin * 15 units of prandial/correctional insulin * BSGs ranging 90 - 210 mg/dl over the past 24hrs * Changes needed to insulin regimen: * AM Fasting BSG = 146 mg/dl. This is in goal range for patient based on inpatient targets and co-morbidities. Previously the patient has required around 50 units while inhouse. Unfortunately this is typically the patient's entire regimen while inhouse. Therefore will utilize a scale of 0 (BSG less than 100) 15 (BSG 100-160 mg/dL) and 25 (BSG greater than 160 mg/dL). Hope to incorporate more Novolog into regimen. * Post-prandial BSGs were elevated yesterday but patient missed a dose of Levemir. Continue with parameters similar to previous hospitalizations * Total daily dose = ~50 units. PLAN FOR INPATIENT GLYCEMIC CONTROL: * Continuing Levemir 0-25 units SQ BID * Continuing correction factor of 15 mg/dl/unit * Continuing carb ratio of 1 unit per 5 grams CHO consumed * Continuing goal range of Low 110 mg/dL - High 140 mg/dL RECOMMENDATIONS FOR DISCHARGE: * Patient's HbA1C is EXTREMELY tight for her age and comorbidities. I would recommend working with outpatient provider to loosen insulin coverage at this point as her goal may be closer to 7%. Thank you.
--- NOTE | 2019-10-11 08:52 | Neurology Consultation ---
Date of Consultation October 11, 2019 Assessment & Plan (1) TIA (transient ischemic attack): Radha Ramires is a 74 yo woman w/ PMH of AFib on apixaban, chronic diastolic CHF, CAD s/p CABG x 2, h/o [place], HTN, HLD, DM, CKDIII, RLS, anemia, sleep apnea, spinal stenosis, chronic indwelling catheter and h/o lung cancer s/p right middle lobectomy in 07/2016 who p/t [facility] with LUE weakness, dysarthria, and difficulty awakening. Symptom localization: R MCA territory vs R internal capsule Stroke mechanism: cardioembolic vs vessel to vessel embolus given high grade stenosis of R M2 branch Stroke WorkUp: - CT head: chronic left frontal infarct, no hemorrhage. 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 M1/M2 bifurcation with a high grade stenosis 2/2 calcified plaque just proximal to these aneurysm - MRI brain: pending - TTE: pending - Telemetry: pending - A1c: pending - FLP: 19 Stroke Management: - Vitals, Neurochecks, NIHSS per unit routine - BP parameters: SBP CAP 180, goal normotension over next 3-4 days - Obtain MRI brain to evaluate if any stroke burden - Complete TIA workup with TTE without bubble, A1c, TSH (can have TTE done as an outpatient if no stroke identified on MRI as pt would prefer to go home and she is already anticoagulated with apixaban) - Consult speech, PT, OT for supportive management - Will mortgage loan counselor concerning stroke education, smoking cessation, healthy diet, physical activity, weight loss - Follow up with PCP for assistance with outpatient goals (BP <135/85, LDL <70, A1c <7) - Follow up in neurology clinic in 4 weeks Secondary Stroke Prevention: - Antiplatelet: n/a - Anticoagulation: continue home apixaban - Statin: continue home rosuvastatin HTN: - BP parameters, as above - Ok to restart home medications with goal of lowering BP to normotension over next 3-4 days FEN/GI: - Diet: Beside dysphagia to clear patient for PO meds/Cardiac HH diet - Monitor lytes and replete PRN Glucose Control: - Sliding scale insulin and accuchecks per primary team to avoid hyperglycemia Thank you for this interesting consult. Plan of care was discussed with patient. Please call or text with any questions. Present on Admission?: Yes History of Present Illness Attending Physician: DO Tereza Fuentesandrez Ramires is a 74 yo woman w/ PMH of AFib on apixaban, chronic diastolic CHF, CAD s/p CABG x 2, h/o [place], HTN, HLD, DM, CKDIII, RLS, anemia, sleep apnea, spinal stenosis, chronic indwelling catheter and h/o lung cancer s/p right middle lobectomy in 07/2016 who p/t [facility] with LUE weakness, dysarthria, and difficulty awakening. She was also noted to have leaning towards the left side. 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 Blood glucose at the time was 63, so family gave her orange juice and a candy. Glucose increased to the 80s, but she continued to have symptoms, so presented to the ED. EMS noted a slight left facial droop; all symptoms resolved by arrival to the hospital (NIHSS 0). In the ED, CTH showed a chronic left frontal infarct, no hemorrhage. CTA H&N showed diffuse atherosclerosis (extra- and intracranial) with a 3 mm aneurysm distal to the R M1/M2 bifurcation with a high grade stenosis 2/2 calcified plaque just proximal to these aneurysm. Labs notable for anemia, Plts 354, INR 1.2, Cr 1.58, glucose 90, UA + for infection vs colonization, LDL 19. On examination today, she reports that all symptoms have resolved. She denies missing any doses of apixaban other than yesterday morning when she woke up with symptoms. Denies any recent fevers, chills, illnesses or changes to medications. Uses a wheelchair at baseline; no new LE weakness or numbness. Allergies Allergy/AdvReac Type Severity Reaction Status Date / Time NSAIDS (Non-Steroidal Allergy Unknown UNK? Verified 10/10/19 09:56 Anti-Inflamma DENIES SOB. capsaicin AdvReac Severe SHORTNESS Verified 10/10/19 09:56 OF BREATH diclofenac AdvReac Severe SHORTNESS Verified 10/10/19 09:56 OF BREATH Diclopak AdvReac Severe SHORTNESS Verified 07/24/18 10:57 OF BREATH Home Medications Home Medications Medication Instructions Recorded Confirmed Type albuterol sulfate HFA 90 1 - 2 puffs INH Q4H PRN gm 07/30/18 10/10/19 History mcg/actuation aerosol inhaler hydralazine 50 mg tablet 50 mg PO TID 07/30/18 10/10/19 History nitroglycerin 0.4 mg sublingual 0.4 mg SL UD PRN tab 07/30/18 10/10/19 History tablet rosuvastatin 40 mg tablet 40 mg PO QAM tab 07/30/18 10/10/19 History spironolactone 25 mg tablet 25 mg PO QAM tab 07/30/18 10/10/19 History cholecalciferol (vitamin D3) 2,000 unit PO QAM 10/13/18 10/10/19 History [Vitamin D3] acetaminophen [Tylenol Extra 500 mg PO Q6H PRN 05/24/19 10/10/19 History Strength] amitriptyline 50 mg PO HS 05/24/19 10/10/19 History magnesium 64 mg (magnesium 64 mg PO TID tab 06/02/19 10/10/19 History chloride) tablet,delayed release apixaban 5 mg tablet 5 mg PO BID #180 tab 06/18/19 10/10/19 Rx metoprolol succinate ER 50 mg 50 mg PO QAM #90 tab 06/18/19 10/10/19 Rx tablet,extended release 24 hr insulin syringe U-100 with needle #300 ea 07/15/19 10/10/19 Rx 1 mL 30 gauge x 5/16" blood sugar diagnostic strips #150 ea 07/17/19 10/10/19 Rx melatonin 3 mg capsule 3 mg PO HS #1 cap 08/14/19 10/10/19 Rx sennosides 8.6 mg tablet 8.6 mg PO BID #1 tab 08/14/19 10/10/19 Rx potassium chloride ER 20 mEq 20 meq PO TID tab 08/19/19 10/10/19 History tablet,extended release(part/cryst) insulin aspart U- 100 100 unit/mL See Rx Instructions SUBCUT 08/27/19 10/10/19 History subcutaneous solution .COMPLEX ml insulin detemir (U- 100) 100 30 units SUBCUT BID ml 08/27/19 10/10/19 History unit/mL subcutaneous solution ropinirole 5 mg tablet See Rx Instructions PO QAM tab 09/17/19 10/10/19 History furosemide 40 mg tablet 40 mg PO BID #60 tab 09/24/19 10/10/19 Rx insulin NPH isophane U- 100 human 10 units SUBCUT QPM 90 Days #9 ml 10/02/19 10/10/19 Rx 100 unit/mL subcutaneous suspension sulfamethoxazole 400 1 tab PO BID 14 Days #28 tab 10/08/19 10/10/19 Rx mg-trimethoprim 80 mg tablet allopurinol [Zyloprim] 100 mg PO QAM 10/10/19 10/10/19 History collagenase clostridium histo. 1 applic TOP BID 10/10/19 10/10/19 History [Santyl] Patient History Medical History Vitamin D deficiency (Chronic) Hypertension (Chronic) Chronic kidney disease, stage 3 (Chronic) Anemia (Resolved) Callus (Resolved) History of hypotension (Resolved) Abscess of right genital labia Acquired claw toe of left foot Acquired hallux valgus of right foot Acquired hammer toe of right foot Atrial fibrillation DX > 6 YEARS AGO - ON ELIQUIS - FOLLOW W/ DR. CORTES CAD (coronary artery disease) CHF (congestive heart failure) Chronic atrial fibrillation Chronic obstructive pulmonary disease Clostridium difficile infection DX [facility] 11/2018 - TREATED - REPORTS CONTINUED DIARRHEA - STOOL SPECIMEN PROVIDED TO PCP OFFICE 01/12/19. RESULTS PENDING Degenerative joint disease of right elbow Diabetes mellitus Diabetes mellitus, type 2 IDDM Diabetic foot ulcer associated with type 2 diabetes mellitus Fatty liver Gout Hallux valgus (acquired), left foot Lumbar spinal stenosis Severe at L4-5 Lung cancer S/P SURGERY Myocardial Infarction 2012 Neuropathic ulcer of toe of right foot Osteoarthritis Restless leg syndrome Sleep apnea CPAP Status post amputation of toe of left foot Syncope Transient ischemic attack (TIA) 2005 Type 2 diabetes mellitus with diabetic neuropathy Surgical History History of back surgery (Acute) H/O: hysterectomy History of amputation LEFT 3RD TOE History of appendectomy History of appendectomy History of bilateral knee replacement History of bronchoscopy History of cardiac cath 2012 - [facility] - [place] - NO STENTS/ANGIOPLASTY -- > CABG - FOLLOWS W/ DR. CORTES History of cholecystectomy History of colonoscopy 11/2018 [facility] History of esophagogastroduodenoscopy (EGD) 11/2018 [facility] History of hysterectomy with oophorectomy History of lobectomy of lung RML History of ovarian cystectomy History of surgery VATS PROCEDURE History of total knee replacement BL History of tubal ligation Hx of CABG 2013 - - [place] - 2 VESSELS - FOLLOWS W/ DR. CORTES Family History Daughter Family history of diabetes mellitus Mother Heart disease Hypertension Myocardial infarction Father Hypertension Social History Preferred Language: Swiss Communication Ability: Effective Visual Impairment: No Limitations Hearing Ability: Normal Mobile Practice Lead Required: No Beliefs That Will Affect Care: None marital status: Current Living Situation: Spouse Current Living Situation Comment: Live with . current occupational status: retired Other Information That Helps Us Care for You: No Feels Safe at Home: Yes Safety Concerns: Feels Safe At This Time Smoking Status: Never smoker Tobacco Type: cigarettes ; Cigarettes Per Day: 10 ; Second Hand Exposure: No ; Hx Alcohol Use: No Hx Substance Use: No Review of Systems Review of Systems: 14 point review of systems completed and negative except as in HPI. Physical Exam Physical Exam: General Exam: GEN: NAD, lying down in examination bed. HEENT: No conjunctival injection, no rhinorrhea. CV: Afib, no significant edema. PULM: Nonlabored respirations on room air. Neuro Exam: MS: Awake and Alert. Oriented to person, place, and date. Speech fluent and appropriate without dysarthria or paraphasic errors. Language intact including naming, comprehension, repetition. Cognition and memory grossly intact. Attention intact. No neglect. CN: Visual palmer full, + blink to threat bilaterally. No extinction to double simultaneous stimuli. Unable to visualize fundi on fundoscopic exam. PERRLA OU. EOMI without nystagmus. Facial sensation intact to LT. Facial muscles full and symmetric. Hearing intact to conversation. Uvula midline with symmetric palatal elevation. Shoulder shrug normal. Tongue midline. MOTOR: Normal bulk and tone. No pronator drift. BUE strength 5/5 at deltoids, biceps, triceps, wrist flexors and extensors, and hand grasp. Has baseline paraplegia of BLEs (briefly antigravity on the LLE, no antigravity in the RLE, can wiggle toes). REFLEXES: 1+ at biceps, triceps, brachioradialis, absent patella, and absent Achilles bilaterally. Toes mute bilaterally. SENSORY: Intact to LT throughout, no extinction to double simultaneous stimuli. Normal vibration and temperature throughout. COORDINATION: No dysmetria or ataxia on [id number] bilaterally. Normal Dwayne bilaterally. GAIT: Deferred due to physical status (wheelchair bound at baseline). NIH STROKE SCALE 1A. Level of Consciousness (0-3) = 0 1B. LOC Questions (0-2) = 0 1C. LOC Commands (0-2) = 0 2. Best Horizontal Gaze (0-2) = 0 3. Visual Palmer (0-3) = 0 4. Facial Palsy (0-3) = 0 5. Motor Arm Right (0-4) = 0 Left (0-4) = 0 6. Motor Leg Right (0-4) = 4 Left (0-4) = 3 7. Limb Ataxia (0-2) = 0 8. Sensory (0-2) = 0 9. Best Language (0-3) = 0 10. Dysarthria (0-2) = 0 11. Extinction and Inattention (0-2) = 0 NIHSS TOTAL = 7 (*from baseline weakness) Results & Data Vital Signs (Past 12 Hours) Vital Signs Temp Pulse Pulse Resp BP Pulse Ox 10/11/19 07:58 36.7 C 74 20 116/56 L 93 10/11/19 00:00 83 10/10/19 22:58 37.2 C 77 20 132/53 L 93 PG Care Time/CCT Total # of Minutes Spent Total Time Spent with Patient: Total time spent is greater than 50% in coordination of care (as documented) at patient's floor/unit and/or counseling patient:
[2019-10-11] MEDS: FUROSEMIDE 20 MG in SYRINGE 0 ML IV SCH ×2 (12:51→21:37)
--- NOTE | 2019-10-11 17:00 | Hospitalist Progress Note ---
Date of Service October 11, 2019 Assessment & Plan (1) Stroke-like symptoms: - Admit to tele - Stroke order set completed - Allow for permissive HTN for now - Neuro consulted, neurochecks q2h, she is recommendations. 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 No evidence of dural venous sinus thrombosis. -PT/OT consults -Speech to evaluate-appreciate recommendations no issues with swallowing, aspiration precautions -A1c 6.3 as of approximately 1 month ago, no need to rechecked -Fasting lipid panel; triglycerides 142, cholesterol 73, LDL 19, HDL 26. -DVT prophylaxis Eliquis -Full code (2) Atrial fibrillation: - Continue Eliquis 5 mg BID, metoprolol succ 50 mg QAM, spironolactone 25 mg QAM - EKG reviewed (3) CHF (congestive heart failure): - Consider cardiology heart failure clinic referral while inpt as she follows as an outpt. - Daily weights, low sodium diet - Follows with Dr. Hernandez as an outpatient -Switched from p.o. Lasix to IV Lasix 20 mg IV twice daily -Last echo completed 09/11/2017 showing low normal overall LV systolic function, left ventricular hypertrophy, biatrial dilation, moderate right ventricular dilatation, moderate right ventricular systolic dysfunction, trace pulmonic regurg, moderate mitral regurg, moderate to severe tricuspid regurg, severe pulmonary hypertension, elevated central venous pressure -TTE pending (4) Hypertension: -Continue diuretics as above, will continue metoprolol to avoid rebound tachycardia, hold hydralazine to allow for permissive hypertension, BP 145/64. May resume hydralazine for SBP>200 or DBP>100, will also await neurology recommendations and change accordingly. (5) Hyperlipidemia: -Continue rosuvastatin 40 mg every morning (6) Lung cancer: - S/p thoacocentesis with carcinoid tumor diagnosed Jul 2016 - Pulmonary nodules being followed via imaging completed annually, appear benign (7) Diabetes mellitus: - Pt was hypoglycemic prior to arrival, noted at 63 when EMS got to her home and then the patient drank juice with improvement up into the mid 80s. - Glycemic pharmacy consulted, ISS, follow with accuchecks achs - DM/HH diet - Last a1c=6.3 on 09/09/19, no need to recheck (8) Diabetic foot ulcer: -diabetic foot ulceration being followed by wound clinic, Dr. Yun is manager customer service -Continue Bactrim for diabetic foot ulceration -Wound consulted during hospital stay (9) Gout: -Stable (10) CKD (chronic kidney disease), stage III: - Cr. = 1.58, appears to be around her baseline. (11) Osteopenia: -Continue supplementation with vitamin D (12) Osteoarthritis involving multiple joints on both sides of body: continue home regimen. Present on Admission?: Yes (13) Obesity (BMI 30-39.9): - BMI of 37.6, diet and exercise to be encouraged prior to discharge (14) Hypomagnesemia: - Hx of such, Mag= 2.5 upon arrival, replenished - Monitor (15) Sarcopenia: - Albumin level of 2.9, likely adding to nonhealing diabetic wound. Nutritional supplementation ordered, recommend Boost QID, at least give at HS to reduce the catabolic effect overnight. (16) Indwelling Soto catheter present: - Placed s/p back surgery in July 2019 due to not being able to walk. - Recently exchanged by urology on 10/06/19 - UA appears dirty but no urinary sx. Pt also on Bactrim which was started yesterday by wound service for foot ulcerations, so this will likely cover any organism present in urine. Follow UCx, can change abx per sensitivity. (17) DVT prophylaxis: Teds, SCDs, continue Eliquis CODE STATUS: Full Disco: Patient from home, lives with , PT/OT to evaluate, CM to assist with discharge planning, likely to remain in the hospital x1 to 2 days Subjective Seen and examined at the bedside. No acute event overnight. She is afebrile. Patient reports good p.o. intake. Patient reports drinking lots of water daily. She states that her oral function has been returned since yesterday and she again regain strength in her left upper extremity.Her face droop is now back to normal. Pt denies, fever chills, chest pain, shortness of breath abdominal pain, frequency and urgency. She said that she gained some weight and has trouble ambulating because she gets very short of breath. Good p.o. intake. Review of Systems Review of Systems: All systems reviewed & are unremarkable except as noted in HPI & below Physical Exam Constitutional: WD/WN, vitals as above well developed and + obese Eyes: PERRL, conjunctivae normal, anicteric sclerae ENMT: external ear and nose normal, oropharynx normal Neck: trachea midline, no thyromegaly Respiratory: normal respiratory effort, lungs clear to auscultation Cardiovascular: RRR, no murmur, no edema Rate/Rhythm: + irregularly irregular Heart Sounds: normal S1 and normal S2 Vessels: + JVD and dorsalis pedis pulses present Extremities: + pedal edema Gastrointestinal (Abdomen): normal bowel sounds, soft, nontender, no hepatosplenomegaly Musculoskeletal: no cyanosis or clubbing, extremities motor strength 5/5 Skin: no rashes, warm and dry Neurologic: She has weakness from before in the lower extremities bilaterally due to severe spinal stenosis. Psychiatric: A+Ox3, euthymic affect Lymphatic: no cervical or axillary lymphadenopathy Results & Data Vital Signs (Past 12 Hours) Vital Signs Temp Pulse Pulse Resp BP Pulse Ox 10/11/19 15:00 37.0 C 67 18 128/67 91 10/11/19 11:46 36.8 C 84 20 120/66 93 10/11/19 10:37 83 10/11/19 07:58 36.7 C 74 20 116/56 L 93 PG Care Time/CCT Total # of Minutes Spent Total Time Spent with Patient: Total time spent is greater than 50% in coordination of care (as documented) at patient's floor/unit and/or counseling patient:
--- NOTE | 2019-10-11 21:26 | Magnetic Resonance Report ---
MR brain wo con CLINICAL HISTORY: 74 years-old Female presenting with TIA v stroke. TECHNIQUE: Multisequence, multiplanar MR imaging of the brain was performed without the use of intrav enous contrast. IV contrast: None. COMPARISON: 11/06/[address] head from 10/10/2019. FINDINGS: Localizer images: Unremarkable. Bone marrow signal intensity within the calvarium within normal limits. Normal midline sagittal structures. Ventricles and sulci normal in size. No mass effect or midline sh ift. No restricted diffusion or hemorrhage. Limited old cortical infarct in the left frontal lobe. Pe riventricular and subcortical white matter T2/FLAIR hyperintensity, nonspecific but likely indicative of chronic small vessel ischemic change. No extra-axial fluid collection. T2 skull base flow voids preserved. IMPRESSION: 1. Limited old cortical infarct in the left frontal lobe and chronic small vessel ischemic change. N o acute intracranial abnormality. Electronically signed by: Jabier Avila M.D. 10/11/2019 9:24 PM
[2019-10-11] MEDS: AMITRIPTYLINE HCL 50 MG TAB PO SCH (21:35)
[2019-10-11] MEDS: APIXABAN 2.5 MG TAB PO SCH ×2 (22:15→22:29)
[2019-10-12] MEDS: SODIUM CHLORIDE 0.9% 1000ML 1,000 ML IV SCH (05:19)
[2019-10-12 06:05] LABS: Basophils # (auto) 0.06 K/uL (0-0.2); Basophils % (auto) 0.7 %; Eosinophils # (auto) 0.12 K/uL (0-0.5); Eosinophils % (auto) 1.3 %; Hematocrit (blood only) 27.3 % (37-47); Hemoglobin 8.3 g/dL (12.0-16.0); Immature Granulocytes # (auto) 0.08 K/uL (0.00-0.02); Immature Granulocytes % (auto) 0.9 %; Lymphocytes # (auto) 1.62 K/uL (1.2-3.4); Lymphocytes % (auto) 17.8 %; Mean Corpuscular Hemoglobin 27.6 pg (25-34); Mean Corpuscular Hgb Conc 30.4 g/dL (32-36); Mean Corpuscular Volume 90.7 fL (80-100); Mean Platelet Volume 8.4 fL (7.4-10.4); Monocytes # (auto) 0.85 K/uL (0.11-0.59); Monocytes % (auto) 9.3 %; Neutrophils # (auto) 6.39 K/uL (1.4-6.5); Platelet Count 328 K/uL (130-400); RDW Coefficient of Variation 16.9 % (11.5-14.5); RDW Standard Deviation 55.8 fL (36.4-46.3); Red Blood Count 3.01 M/uL (4.2-5.4); White Blood Count 9.12 K/uL (4.8-10.8)
[2019-10-12 06:46] LABS: BUN Creatinine Ratio 25.7 (10-20); Calcium 9.3 mg/dl (8.5-10.1); Creatinine Clr Calc Pharmacy 29.1 ml/min; Est GFR (African American) 28.1; Est GFR (Non-African American) 24.3
[2019-10-12] MEDS: SENNA 8.6 MG TAB PO SCH (08:03)
[2019-10-12] MEDS: ROPINIROLE HCL 5 MG TABLET PO SCH ×2 (08:03→14:03)
[2019-10-12] MEDS: POTASSIUM CHLORIDE 20 MEQ TABCR PO SCH ×2 (08:03→14:02)
[2019-10-12] MEDS: ROSUVASTATIN CALCIUM 20 MG TAB PO SCH (08:04)
[2019-10-12] MEDS: SPIRONOLACTONE 25 MG TAB PO SCH (08:04)
[2019-10-12] MEDS: CHOLECALCIFEROL 1,000 UNITS TAB PO SCH (08:04)
[2019-10-12] MEDS: SULFA/TRIMETH 400/80MG TAB PO SCH (08:05)
[2019-10-12] MEDS: ALLOPURINOL 100 MG TAB PO SCH (08:05)
[2019-10-12] MEDS: METOPROLOL SUCC 50MG EXT REL TAB PO SCH (08:06)
[2019-10-12] MEDS: MAGNESIUM CHLORIDE 64MG DELAYED REL TAB PO SCH ×2 (08:06→14:03)
[2019-10-12] MEDS: INSULIN DETEMIR FLEXPEN/FLEX TOUCH 100 UNITS/ML 3ML SC SCH (08:08)
[2019-10-12] MEDS: FUROSEMIDE 20 MG in SYRINGE 0 ML IV SCH (08:08)
[2019-10-12] MEDS: INSULIN ASPART 100 UNITS/ML 3 ML PEN SC SCH ×2 (08:10→12:18)
[2019-10-12] MEDS ORDERED: APIXABAN 5 MG TABLET PO SCH (09:00)
[2019-10-12] MEDS: COLLAGENASE OINT 30 GM TUBE TOP SCH (10:59)
--- NOTE | 2019-10-12 14:09 | Pharmacy Report ---
Pharmacy Glycemic Short Note 2 - Date of Service October 12, 2019 - Glycemic Short BSG Results (Last 24 hours): 10/11/19 10/11/19 10/12/19 16:44 20:33 05:42 Glucose 110 H POC Glucose 115 H 202 H 10/12/19 10/12/19 07:24 11:22 Glucose POC Glucose 120 H 180 H OUTPATIENT ANTIDIABETIC REGIMEN: * Levemir 30 units BID + NPH 10 units qpm + Novolog ASSESSMENT: * Patient's BSGs ranged from 139-243 yesterday with 78 units of insulin (40 of basal) * Fasting this morning 120, will continue scale for lantus dosing * BSG at lunch improved to 180 today, will continue current 15/5- tighten if continue to be elevated PLAN FOR INPATIENT GLYCEMIC CONTROL: * Hold outpatient oral diabetes medications * Basal insulin * Lantus 15 units SQ this morning, scale for pm * Bolus insulin * NovoLog per scale ACHS or Q6hrs while NPO * Goal Range: Low 120 mg/dL - High 160 mg/dL * Correction Factor: 15 mg/dL/unit * Nutritional / Prandial insulin per carb ratio of 1 unit per 5 grams CHO consumed PLAN FOR DISCHARGE: * Patient's A1c 6.3%, meeting goal <7%. Patient can likely resume outpatient regimen if not experiencing frequent hypoglycemic events/no major dietary changes.
[2019-10-12] MEDS ORDERED: STROKE PATIENT DISCHARGE STA (15:56)
--- NOTE | 2019-10-12 15:58 | Discharge Summary ---
Date of Service October 12, 2019 Admission HPI Per Admitting Provider This is a 74 yo F with PMHx of Afib on coumadin, chronic diastolic CHF, CAD s/p CABG x 2 ( RANDHAWA to LAD, SVG to PDA in July 2013) hx of RI, HTN, HLD, DM II, hypoglycemia, CKD stage III, RLS, anemia, gout, sleep apnea, spinal stenosis, chronic indwelling catheter, and hx of lung cancer s/p right middle lobectomy on 07/09/16, who presents with acute stroke-like sx. the patient's and daughter present at bedside. notes that when he went into the patient's room at approximately 6:30 in the morning to wake her up she did not respond appropriately. Her speech was slurred, and she was leaning towards the left side and unable to move her upper left extremity. He called his daughter who then proceeded to come to the house, by 7:20 AM. Her blood glucose was 63 as she has a known history of becoming hypoglycemic, they gave her at orange juice and a small candy bar which increased glucose into the mid 80s. She continued to have difficulty with slurred speech as well as a slight left-sided facial droop. EMS was called and patient was brought to the ER. At time of evaluation of the patient her symptoms have nearly resolved, she is able to speak without difficulty. She is able to move her left arm and there is no facial droop. She denies any acute complaints. CT the head is negative. CTA of the head and neck are in process. Principal Diagnosis Pt is without concerns and feels ready for d/c. She has had no return of stroke like sx. She has been eating without issue. Pt denies fever, SOB, chest pain, abd pain, n/v/c/d. She has ongoing LE pain and inability to use that is at baseline. Pertinent positives and negatives reviewed in HPI--all others negative Discharge Exam Constitutional WD/WN, vitals as above Eyes normal visual colin by confrontation and + anicteric sclerae Neck normal visual inspection and trachea midline Respiratory normal respiratory effort, lungs clear to auscultation Cardiovascular Rate/Rhythm: regular rate and regular rhythm Gastrointestinal (Abdomen) Inspection/Auscultation: abdomen not distended Percussion/Palpation: abdomen soft; abdomen nontender Musculoskeletal Head/Neck/Chest: normocephalic and head atraumatic Skin no rashes, warm and dry Neurologic CN's II-XI intact bilaterally and awake; not confused Speech / Cognition: normal speech Psychiatric A+Ox3, euthymic affect Discharge Data Allergies Allergy/AdvReac Type Severity Reaction Status Date / Time NSAIDS (Non-Steroidal Allergy Unknown UNK? Verified 10/10/19 09:56 Anti-Inflamma DENIES SOB. capsaicin AdvReac Severe SHORTNESS Verified 10/10/19 09:56 OF BREATH diclofenac AdvReac Severe SHORTNESS Verified 10/10/19 09:56 OF BREATH Diclopak AdvReac Severe SHORTNESS Verified 07/24/18 10:57 OF BREATH Consultations 10/10/19 12:19 ED Decision to Admit Stat 10/10/19 12:53 Consult Case Management - Discharge Planning Routine Consult Neurology Routine Ordered Studies 10/10/19 09:20 CT head/brain wo con Stat 10/10/19 12:07 CT angio head w con Stat CT angio neck with con Stat 10/11/19 18:18 MR brain wo con Stat Hospital Course (1) Stroke-like symptoms: - Follow up with PCP for assistance with outpatient goals (BP <135/85, LDL <70, A1c <7) - Counseled concerning stroke education, smoking cessation, healthy diet, physical activity, weight loss - Follow up in neurology clinic in 4 weeks, CM to assist in arranging - 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 No evidence of dural venous sinus thrombosis. ECHO stable from prior -PT/OT for d/c home -Speech to evaluate-appreciate recommendations no issues with swallowing, aspiration precautions -A1c 6.3 as of approximately 1 month ago, no need to recheck -Fasting lipid panel; triglycerides 142, cholesterol 73, LDL 19, HDL 26. (2) Atrial fibrillation: - Continue Eliquis 5 mg BID, metoprolol succ 50 mg QAM, spironolactone 25 mg QAM - EKG reviewed (3) CHF (congestive heart failure): - Consider cardiology heart failure clinic referral while inpt as she follows as an outpt. - Daily weights, low sodium diet - Follows with Dr. Hernandez as an outpatient -Resume home lasix -ECHO without changes from recent ECHO 08/2019 (4) Hypertension: -Continue diuretics as above, will continue metoprolol to avoid rebound tachycardia, hold hydralazine to allow for permissive hypertension, BP 145/64. May resume hydralazine for SBP>200 or DBP>100, will also await neurology recommendations and change accordingly. (5) Hyperlipidemia: -Continue rosuvastatin 40 mg every morning (6) Lung cancer: - S/p thoacocentesis with carcinoid tumor diagnosed Jul 2016 - Pulmonary nodules being followed via imaging completed annually, appear benign (7) Diabetes mellitus: - Pt was hypoglycemic prior to arrival, noted at 63 when EMS got to her home and then the patient drank juice with improvement up into the mid 80s. - Glycemic pharmacy consulted, ISS, follow with accuchecks achs - DM/HH diet - Last a1c=6.3 on 09/09/19, no need to recheck (8) Diabetic foot ulcer: -diabetic foot ulceration being followed by wound clinic, Dr. Yun is director of corporate marketing -Continue Bactrim for diabetic foot ulceration -Wound consulted during hospital stay (9) Gout: -Stable (10) CKD (chronic kidney disease), stage III: - Cr. = 1.58, appears to be around her baseline. (11) Osteopenia: -Continue supplementation with vitamin D (12) Osteoarthritis involving multiple joints on both sides of body: continue home regimen. (13) Obesity (BMI 30-39.9): - BMI of 37.6, diet and exercise to be encouraged prior to discharge (14) Hypomagnesemia: - Hx of such, Mag= 2.5 upon arrival, replenished - Monitor (15) Sarcopenia: - Albumin level of 2.9, likely adding to nonhealing diabetic wound. Nutritional supplementation ordered, recommend Boost QID, at least give at HS to reduce the catabolic effect overnight. (16) Indwelling Soto catheter present: - Placed s/p back surgery in July 2019 due to not being able to walk. - Recently exchanged by urology on 10/06/19 - UA appears dirty but no urinary sx. Pt also on Bactrim which was started yesterday for foot ulcerations Ucx noted for bactrim sensitivity, will continue x14 days total tx (17) DVT prophylaxis: Teds, SCDs, continue Eliquis CODE STATUS: Full Disco: Home with PT as outpt Total Time Total Time Spent Total Time Spent (In Minutes): >30 Discharge Plan Discharge Items Patient Disposition: Home - Self-Care Reason For Visit: STROKE SX, HYPOGLYCEMIA Discharge Diagnosis: Stroke like symptoms, high grade stenosis, hypoglycemia Activity: Resume your previous activity Non-emergency contact: Primary Care Provider Call non-emergency contact if: you have any medication questions and your symptoms worsen Follow-up/Referrals: Jaquelin Crowley MD [Primary Care Provider] - 10/16/19 11:00 am (Please, follow up at Dr. Prasad's office with her associate, Sofia Galan PA-C on SaturdayOctober 16 at 11:00 am. *If you need to change this appointment, call the office at [phone].) Rosangela Goodman PA-C [Physician [employer] Support Specialist] - 11/09/19 1:45 pm (Please, follow up at [facility] Office with Rosangela Goodman PA-C on SaturdayNovember 09 at 2:00 pm (arrive 1:45 pm). *The office is located at [address] [place] [address] in [place]. If you need to change this appointment, call the office at [phone].) Diet: Carb Consistent or DM2 and Heart Healthy Addtl Attending Provider Instructions: You should follow up with neurology in 4 weeks. Case management will set up this appt for you and call you with the details. If you have not heard back from them with an appt by the end of the week, you should call the hospital to make sure this was completed. You should see your PCP in the next 3-5 days. This will be arranged for you as well. You do have a urinary tract infection and should continue taking Bactrim (antibiotic) for a total of 14 days. You were already taking this prior to coming to the hospital. Pending Studies at Discharge: No Stand-Alone Forms: My [facility] [employer], Smoking Cessation Medications and DC Order Prescriptions: Continued albuterol sulfate [ProAir HFA] 90 mcg/actuation HFA aerosol inhaler 1 - 2 puffs INH Q4H PRN (Reason: Shortness Of Breath Or Wheezing) RF: 0 hydralazine 50 mg tablet 50 mg PO TID RF: 0 nitroglycerin [Nitrostat] 0.4 mg tablet, sublingual 0.4 mg SL UD PRN (Reason: Chest Pain) RF: 0 rosuvastatin [Crestor] 40 mg tablet 40 mg PO QAM RF: 0 spironolactone 25 mg tablet 25 mg PO QAM RF: 0 metoprolol succinate 50 mg tablet extended release 24 hr 50 mg PO QAM Qty: 90 RF: 4 Eliquis 5 mg tablet 5 mg PO BID Qty: 180 RF: 3 insulin syringe-needle U-100 [CareTouch Insulin Syringe] 1 mL 30 gauge x 5/16 syringe .ROUTE .MEDSUPPLY Qty: 300 RF: 5 OneTouch Verio strip .ROUTE .MEDSUPPLY Qty: 150 RF: 11 melatonin 3 mg capsule 3 mg PO HS Qty: 1 RF: 0 sennosides [Senokot] 8.6 mg tablet 8.6 mg PO BID Qty: 1 RF: 0 furosemide 40 mg tablet 40 mg PO BID Qty: 60 RF: 5 Novolin N NPH U-100 Insulin 100 unit/mL suspension 10 units subcut QPM 90 Days Qty: 9 RF: 3 sulfamethoxazole-trimethoprim [Bactrim] 400-80 mg tablet 1 tab PO BID 14 Days Qty: 28 RF: 0 magnesium chloride 64 mg tablet,delayed release (DR/EC) 64 mg PO TID RF: 0 potassium chloride 20 mEq tablet,ER particles/crystals 20 meq PO TID RF: 0 ropinirole 5 mg tablet See Patient Comments PO QAM RF: 0 Novolog U-100 Insulin aspart 100 unit/mL solution See Patient Comments subcut .COMPLEX RF: 0 cholecalciferol (vitamin D3) [Vitamin D3] 2,000 unit Tablet 2,000 unit PO QAM RF: 0 Levemir U-100 Insulin 100 unit/mL solution 30 units subcut BID RF: 0 amitriptyline 50 mg tablet 50 mg PO HS RF: 0 acetaminophen [Tylenol Extra Strength] 500 mg Tablet 500 mg PO Q6H PRN (Reason: Pain) RF: 0 allopurinol [Zyloprim] 100 mg tablet 100 mg PO QAM RF: 0 Santyl 250 unit/gram ointment 1 applic TOP BID RF: 0 Discharge Orders: Discharge Order (Routine); Ordered 10/12/19 Ordered By: Doretha Mojica Admission Data Admit Date/Time: 10/10/19 13:39 Attending Provider: Doretha Mojica Admit Provider: Doretha Mojica Primary Care Provider: Jaquelin Crowley V. Other Providers: Alexandria Costa ; Doretha Mojica Other Interventions: Discharge Summary Assessment (RN) Last Done: 10/12/19 15:59 DC Date/Time DO NOT enter until pt leaves facility: 10/12/19 16:45
--- NOTE | 2019-10-15 12:10 | Coding Query ---
CODING QUERY To promote full compliance with coding requirements relating to patient care, provider participation is requested in all cases of loan underwriter uncertainty. Please assist us with the question(s) below: Coding Question: TIA was listed in the neurology consult only, please clarify if a TIA was the cause of the patient's symptoms. Thanks for your help! ( ) TIA, present on admission ( ) TIA, ruled-out ( x) Other, explain TIA vs hypoglycemia with neurologic sx Thank you! Roshni Mosley Principal Diagnosis: "that condition established after study, to be chiefly responsible for occasioning the admission of the patient to the hospital for care." Co-Existing Principal Diagnosis: "when two or more diagnoses equally meet the criteria for principal diagnosis as determined by the circumstances of admission, diagnostic work up, and/or therapy provided, and the Alphabetic Index, Tabular List, or another coding guideline does not provide sequencing direction, any one of the diagnoses may be sequenced first." "When the physician has documented what appears to be a current diagnosis in the body of the record, but has not included the diagnosis in the final diagnostic statement, the physician should be asked whether the diagnosis should be added." (Source Coding Clinic 2 QTR90. p3-4) JULIENNE
== END 2019-10-12 16:45 | disposition home or self-care (01) | DRG 69 ==
LOC: ED 09:06 → 2N 13:36 → SUATTDRO 13:39 → 2N 10-11 03:55
DX: Z68.37 Body mass index [BMI] 37.0-37.9, adult; E11.22 Type 2 diabetes mellitus with diabetic chronic kidney disease; M10.9 Gout, unspecified; I13.0 Hypertensive heart and chronic kidney disease with heart failure and stage 1 through stage 4 chronic kidney disease, or unspecified chronic kidney disease; E66.9 Obesity, unspecified; I48.91 Unspecified atrial fibrillation; L97.519 Non-pressure chronic ulcer of other part of right foot with unspecified severity; Z79.01 Long term (current) use of anticoagulants; I25.2 Old myocardial infarction; E11.621 Type 2 diabetes mellitus with foot ulcer; G45.9 Transient cerebral ischemic attack, unspecified; G25.81 Restless legs syndrome; Z79.899 Other long term (current) drug therapy; I25.10 Atherosclerotic heart disease of native coronary artery without angina pectoris; N18.3 Chronic kidney disease, stage 3 (moderate); J44.9 Chronic obstructive pulmonary disease, unspecified; E83.42 Hypomagnesemia; Z95.1 Presence of aortocoronary bypass graft; E11.649 Type 2 diabetes mellitus with hypoglycemia without coma; I50.32 Chronic diastolic (congestive) heart failure; E78.5 Hyperlipidemia, unspecified; Z79.4 Long term (current) use of insulin; M62.84 Sarcopenia

== ENCOUNTER 2020-09-24 09:37 | Inpatient (IN) ==
--- NOTE | 2020-09-24 10:10 | Emergency Department Note ---
Impression & Plan Volume overload, Breathlessness, Leg swelling ED Provider Note Provider: Seamus Costa MD DATE OF SERVICE:09/24/2020 CHIEF COMPLAINT: Shortness of breath, fluid overload HISTORY OF PRESENT ILLNESS: Patient is a 75-year-old female with a past medical history including CHF, atrial fibrillation on Eliquis, CAD, diabetes, hypertension, neurogenic bladder with suprapubic catheter managed by urology presenting today stating that she is beginning to "fill with fluid "and that she feels more short of breath. Patient has been to the emergency department several times over the last month due to recurrent shortness of breath and swelling issues last approximately 48 hours ago. Given some extra Lasix at that time but talked with her primary doctor yesterday did not wish her to take the increased dosage per her and the daughter's report. Has follow-up on Saturday but concerned about continued swelling in the legs and abdomen. Denies chest pain, abdominal pain, or significant pain in the legs. No weeping legs reported. Patient states over the past 2 weeks she has gained about 30 pounds and increase Lasix has not improved her swelling breathing. She denies any pain or falls. Denies fever or URI symptoms. Patient states she is nonambulatory and is usually in her wheelchair or in the recliner and when she is in the recliner she keeps her legs up. States she cannot lie flat due to difficulty breathing. Patient states not quite her normal amount of urine output from her catheter today. REVIEW OF SYSTEMS: A total of 10 review of systems was obtained and negative except as stated above in the HPI. PAST MEDICAL HISTORY: As noted above MEDICATIONS: Reviewed home medication list which includes significantly Eliquis as well as furosemide FMH: Hypertension, CAD SOCIAL HISTORY: Former smoker, was at home with PHYSICAL EXAM: GENERAL: alert and oriented in no acute distress in wheelchair Head: normocephalic and atraumatic EYES: No injection, discharge or icterus. NECK: Trachea midline. ENT: Mucous membranes pink and moist. LUNGS: Airway patent. No retractions. Breath sounds clear with diminished bases HEART: Irregularly irregular rate and rhythm. No chest wall tenderness ABDOMEN: Soft and non-tender, without guarding or rebound. Suprapubic catheter SKIN: Acyanotic, warm, dry EXTREMITIES: Swollen the bilateral lower extremities without weeping they are dry. Swelling approximately 2-3+ bilaterally. Bandaging of the right heel reportedly with underlying chronic wound. NEUROLOGICAL: No aphasia. No facial droop or slurred speech. Sensation to gross touch normal in the lower extremities. EK bpm atrial fibrillation with a left axis noted and some QRS prolongation. No acute ST segment elevation but aVL T wave inversion as well as lead I noted. Compared to previous from September 22, 2020 appears similar. CONTINUOUS CARDIAC MONITORING: was ordered and showed a heart rate of 66 bpm in atrial fibrillation rate controlled Patient's laboratory studies and imaging reviewed. Differential includes Reactive airway disease, pneumonia, pneumothorax, COPD, CHF, infections, cardiac ischemia, pulmonary embolism, musculoskeletal, gastrointestinal, as well as other pathologies. IMPRESSION/MEDICAL DECISION MAKING: Patient with shortness of breath and concern for fluid overload with history of CHF and similar presentations. No fever likely reported or significant URI symptoms. Basic labs obtained as well as EKG. Patient anticoagulated due to chronic A. fib. Patient not significantly hypoxic on room air at rest. No respiratory distress but difficulty laying flat. Anticoagulated lowers my suspicion for PE. I doubt dissection she not having any significant pain. Swelling in the leg is fairly significant as well as now into the abdomen without abdominal tenderness or appreciable mass. The bilateral nature of the swelling in les and some swelling of the abdomen, I have concerns for worsening fluid overload. She does have some underlying CKD believe the reason why the PCP was concerned about additional diuretics. We will not hypoxic on room air at rest and with her limited activity level she is having difficulty sleeping and she has significant concern about swelling of her legs. Evidence of volume overload but laboratory studies appear stable. Do not see evidence of significant pulmonary edema on the chest x-ray. Additional IV Lasix given. Discussed with patient and daughter and they wish for further observation here in the hospital which is not unreasonable at this time. Discussed with the hospitalist DIAGNOSIS: Fluid overload, shortness of breath, leg swelling DISPOSITION: Hospitalist will evaluate Patient was agreeable with this plan. Past Med/Surg History Medical History (Updated 09/24/20 @ 13:51 by Seamus Costa M.D.) Acute dehydration Acute osteomyelitis of toe of left foot Acute UTI (urinary tract infection) Anemia Anemia Aortic stenosis MILD-MOD per 08/2019 echo, but NO SIGNIFICANT STENOSIS noted on 10/12/19 echo. Atrial fibrillation On Eliquis CAD (coronary artery disease) s/p CABG x 2 in 2012. CAD has remained quiescent since then. Follows with Dr. Hernandez, who cleared the patient for lumbar surgery 07/2019. CHF (congestive heart failure) Appears euvolemic on exam at [facility] but unable to asses pedal edema due to b/l medical walking shoes for diabetic ulcers. EF 50-55% on most recent echo. Chronic kidney disease, stage 3 Clostridium difficile infection DX [facility] 12/2018 @ [facility]. Stool NEGATIVE 05/25/19. Diabetes mellitus, type 2 IDDM Diabetic foot ulcer associated with type 2 diabetes mellitus Following with wound clinic [facility]. DVT prophylaxis Dysphagia E. coli infect Encounter for immunization Encounter for monitoring diuretic therapy Fatty liver Gout Hypertension Hypoglycemia Indwelling Soto catheter present Lumbar spinal stenosis Severe at L4-5. 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 Lung cancer S/P RM lobectomy 2015, follows with Dr. Perkins. Myocardial Infarction 2012 Nausea & vomiting Neuroendocrine tumor Neurogenic bladder Neuropathic ulcer of toe of right foot Orthopnea Osteoarthritis Paraplegia Since 07/2019 decompression/fusion @ [facility] ([place]) Pressure ulcer of ischium, stage 2 Restless leg syndrome Sleep apnea CPAP Stroke-like symptoms Transient ischemic attack (TIA) 10/2019. Urinary tract infection Wheelchair dependent Surgical History Fusion of spine lumbar (07/2019) at [facility] --- uneventful surgery/anesthesia and hospitalization, but patient developed subsequent LE paraplegia. 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 History of appendectomy History of bilateral knee replacement History of bronchoscopy History of cardiac cath 2012 - [facility] - [place] - NO STENTS/ANGIOPLASTY -- > CABG History of cholecystectomy History of colonoscopy 11/2018 [facility] History of esophagogastroduodenoscopy (EGD) 11/2018 [facility] History of hysterectomy with oophorectomy KEARA with BSO History of lobectomy of lung RML History of ovarian cystectomy History of surgery Right VATS PROCEDURE History of tubal ligation Hx of CABG 2012 - - [place] - [place] - 2 VESSELS Family History Daughter Family history of diabetes mellitus Mother Heart disease Hypertension Myocardial infarction Father Hypertension Other Diabetes Denies family history of Ovarian cancer Prostate cancer Crohn's disease Breast cancer Colorectal cancer Ulcerative colitis Social History Smoking Status: Former smoker Tobacco Type: Cigarettes Cigarettes Per Day: 10; Number of Years Since Quit: 8; Second Hand Exposure: No; Hx Alcohol Use: No Hx Substance Use: No Preferred Language: Slovak Communication Ability: Effective Visual Impairment: No Limitations Hearing Ability: Normal 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 current occupational status: retired Feels Safe at Home: Yes Childhood Exposure to Second-Hand Smoke: No Dental Care, Regularly: No Physical Activity Frequency: Does not Exercise Seatbelt Use: always Sunscreen Use: No Assistive Devices: Mechanical Lift and Wheelchair Allergies Allergies Allergy/AdvReac Type Severity Reaction Status Date / Time metoclopramide [From Reglan] Allergy Mild "went Verified 09/24/20 10:48 crazy" NSAIDS (Non-Steroidal Allergy Unknown UNK? Verified 09/24/20 10:48 Anti-Inflamma DENIES SOB. capsaicin AdvReac Severe SHORTNESS Verified 09/24/20 10:48 OF BREATH diclofenac AdvReac Severe SHORTNESS Verified 09/24/20 10:48 OF BREATH Diclopak AdvReac Severe SHORTNESS Verified 07/24/18 10:57 OF BREATH Home Meds Home Medications Medication Instructions Recorded Confirmed nitroglycerin 0.4 mg sublingual 0.4 mg SL UD PRN tab 07/30/18 09/24/20 tablet magnesium chloride 64 mg 64 mg PO TID tab 06/02/19 09/24/20 (magnesium chloride) tablet,delayed release cholecalciferol (vitamin D3) 125 mcg PO QAM 04/16/20 09/24/20 acetaminophen 325 mg capsule 650 mg PO BID PRN cap MDD 10 tabs 04/22/20 09/24/20 insulin detemir U-100 100 unit/mL 22 unit SUBCUT BID ml 08/05/20 09/24/20 (3 mL) subcutaneous pen insulin aspart U-100 100 unit/mL 5 units SQ QID ml 09/02/20 09/24/20 subcutaneous solution lidocaine 5 % topical patch 2 patch TOP DAILY PRN 09/02/20 09/24/20 albuterol sulfate [Ventolin HFA] 1 inh INHALATION DIRECTED PRN 09/24/20 09/24/20 baclofen 2.5 mg PO HS 09/24/20 09/24/20 furosemide 40 mg PO PM 09/24/20 09/24/20 furosemide [Lasix] 60 mg PO QAM 09/24/20 09/24/20 Previous Rx's Medication Instructions Recorded insulin syringe-needle U-100 1 mL #300 ea 07/15/19 30 gauge x 5/16" amitriptyline 50 mg tablet 50 mg PO HS #90 tab 10/16/19 cadexomer iodine 0.9 % topical gel 40 g TOP DAILY 30 Days #40 gm 05/06/20 hydralazine 50 mg tablet 50 mg PO TID #270 tab 05/19/20 metoprolol succinate 25 mg 25 mg PO DAILY #90 tab 05/19/20 tablet,extended release 24 hr allopurinol 100 mg tablet 100 mg PO QAM #90 tab 06/13/20 apixaban 5 mg tablet 5 mg PO BID #180 tab 06/13/20 ferrous sulfate 325 mg (65 mg 325 mg PO BID #180 tab 07/13/20 iron) tablet ropinirole 5 mg tablet 5 mg PO QID #270 tab 07/20/20 rosuvastatin 40 mg tablet 40 mg PO DAILY #90 tab 07/20/20 potassium chloride 20 mEq 20 meq PO BID #60 tab 08/17/20 tablet,extended release BD Ultra Fine Lancets 33 gauge #200 ea NS 09/20/20 True Metrix Glucose Meter #1 ea NS 09/20/20 True Metrix Glucose Test Strip #200 ea NS 09/20/20 Results & Data (ED) Vital Signs Vital Signs - 24 hr 09/24/20 09:42 09/24/20 10:07 09/24/20 10:26 Temperature 37 C Temperature Source Oral Pulse Rate 69 60 Pulse Rate from SpO2 Sensor 64 Respiratory Rate 18 19 Respiratory Effort / Characteristics Non-Labored Spontaneous Respiratory Depth Normal Respiratory Pattern Regular Blood Pressure 131/61 129/68 Blood Pressure Mean 84 86 Blood Pressure Position Sitting Pulse Oximetry 97 94 97 Oxygen Delivery Method Room Air Room Air Sepsis Recent Fever Within 48 Hours No Sepsis New/Unexplained Change in Mental Status N/A Sepsis Action Taken by Nursing No Action Required 09/24/20 10:27 09/24/20 10:30 09/24/20 10:40 Temperature Temperature Source Pulse Rate 70 76 70 Pulse Rate from SpO2 Sensor 65 76 72 Respiratory Rate 25 H 28 H 20 Respiratory Effort / Characteristics Respiratory Depth Respiratory Pattern Blood Pressure 122/54 L Blood Pressure Mean 88 Blood Pressure Position Pulse Oximetry 97 96 Oxygen Delivery Method Sepsis Recent Fever Within 48 Hours Sepsis New/Unexplained Change in Mental Status Sepsis Action Taken by Nursing 09/24/20 10:50 09/24/20 11:00 09/24/20 11:10 Temperature Temperature Source Pulse Rate 70 66 72 Pulse Rate from SpO2 Sensor 73 73 67 Respiratory Rate 21 20 16 Respiratory Effort / Characteristics Respiratory Depth Respiratory Pattern Blood Pressure 115/75 Blood Pressure Mean 98 Blood Pressure Position Pulse Oximetry 93 91 Oxygen Delivery Method Sepsis Recent Fever Within 48 Hours Sepsis New/Unexplained Change in Mental Status Sepsis Action Taken by Nursing 09/24/20 11:20 09/24/20 11:30 09/24/20 11:40 Temperature Temperature Source Pulse Rate 75 56 L 53 L Pulse Rate from SpO2 Sensor 78 56 L 57 L Respiratory Rate 21 17 21 Respiratory Effort / Characteristics Respiratory Depth Respiratory Pattern Blood Pressure 138/56 L Blood Pressure Mean 91 Blood Pressure Position Pulse Oximetry 90 98 96 Oxygen Delivery Method Sepsis Recent Fever Within 48 Hours Sepsis New/Unexplained Change in Mental Status Sepsis Action Taken by Nursing 09/24/20 11:50 Temperature Temperature Source Pulse Rate 68 Pulse Rate from SpO2 Sensor 71 Respiratory Rate 21 Respiratory Effort / Characteristics Respiratory Depth Respiratory Pattern Blood Pressure Blood Pressure Mean Blood Pressure Position Pulse Oximetry 98 Oxygen Delivery Method Sepsis Recent Fever Within 48 Hours Sepsis New/Unexplained Change in Mental Status Sepsis Action Taken by Nursing Laboratory Data Result diagrams: 09/24/20 10:05 09/24/20 10:05 Lab Results 09/24/20 09/24/20 09/24/20 Range/Units 10:05 10:05 10:05 WBC 7.08 (4.8-10.8) K/uL RBC 2.94 L (4.2-5.4) M/uL Hgb 7.9 L (12.0-16.0) g/dL Hct 26.8 L (37-47) % MCV 91.2 (80-100) fL MCH 26.9 (25-34) pg MCHC 29.5 L (32-36) g/dL RDW Std Deviation 62.1 H (36.4-46.3) fL RDW Coeff of Lelo 18.6 H (11.5-14.5) % Plt Count 204 (130-400) K/uL MPV 8.2 (7.4-10.4) fL Immature Gran % (Auto) 0.3 % Neut % (Auto) 80.9 % Lymph % (Auto) 9.6 % Pettis % (Auto) 6.8 % Eos % (Auto) 2.1 % Baso % (Auto) 0.3 % Neut # (Auto) 5.73 (1.4-6.5) K/uL Lymph # (Auto) 0.68 L (1.2-3.4) K/uL Pettis # (Auto) 0.48 (0.11-0.59) K/uL Eos # (Auto) 0.15 (0-0.5) K/uL Baso # (Auto) 0.02 (0-0.2) K/uL Immature Gran # (Auto) 0.02 (0.00-0.02) K/uL Ovalocytes 1+ PT 13.4 H (9.0-12.0) Seconds INR 1.3 H (0.9-1.1) APTT 30.2 (21.0-31.0) Seconds PTT Ratio 1.1 Sodium 139 (136-145) mmol/L Potassium 3.6 (3.5-5.1) mmol/L Chloride 108 H (98-107) mmol/L Carbon Dioxide 28 (21-32) mmol/L Anion Gap 4.0 (3-11) BUN 44 H (7-18) mg/dl Creatinine 1.40 H (0.6-1.2) mg/dl Est Cr Clr Drug Dosing 44.3 ml/min Est GFR ( Amer) 42.2 Est GFR (Non-Af Amer) 36.4 BUN/Creatinine Ratio 31.4 H (10-20) Glucose 114 H (70-99) mg/dl Calcium 9.0 (8.5-10.1) mg/dl Magnesium 2.3 (1.8-2.4) mg/dl Total Bilirubin 0.8 (0.2-1) mg/dl AST 15 (15-37) U/L ALT 16 (12-78) U/L Alkaline Phosphatase 94 (45-117) U/L Troponin I 0.021 (0-0.045) ng/ml Total Protein 7.1 (6.4-8.2) gm/dl Albumin 3.0 L (3.4-5.0) gm/dl Globulin 4.1 H (2.5-4.0) gm/dl Albumin/Globulin Ratio 0.7 L (0.9-2) Urine Color Urine Appearance (Clear) Urine pH (4.5-7.5) Ur Specific Magnolia (1.000-1.030) Urine Protein (Negative) Urine Glucose (UA) (Negative) Urine Ketones (Negative) Urine Blood (Negative) Urine Nitrite (Negative) Urine Bilirubin (Negative) Urine Urobilinogen (Negative) Ur Leukocyte Esterase (Negative) Urine WBC (Auto) (0-5) /hpf Urine RBC (Auto) (0-4) /hpf U Hyaline Cast (Auto) (0-5) /lpf U Epithel Cells (Auto) (0-5) /lpf Urine Bacteria (Auto) (Negative) 09/24/20 Range/Units 11:51 WBC (4.8-10.8) K/uL RBC (4.2-5.4) M/uL Hgb (12.0-16.0) g/dL Hct (37-47) % MCV (80-100) fL MCH (25-34) pg MCHC (32-36) g/dL RDW Std Deviation (36.4-46.3) fL RDW Coeff of Lelo (11.5-14.5) % Plt Count (130-400) K/uL MPV (7.4-10.4) fL Immature Gran % (Auto) % Neut % (Auto) % Lymph % (Auto) % Pettis % (Auto) % Eos % (Auto) % Baso % (Auto) % Neut # (Auto) (1.4-6.5) K/uL Lymph # (Auto) (1.2-3.4) K/uL Pettis # (Auto) (0.11-0.59) K/uL Eos # (Auto) (0-0.5) K/uL Baso # (Auto) (0-0.2) K/uL Immature Gran # (Auto) (0.00-0.02) K/uL Ovalocytes PT (9.0-12.0) Seconds INR (0.9-1.1) APTT (21.0-31.0) Seconds PTT Ratio Sodium (136-145) mmol/L Potassium (3.5-5.1) mmol/L Chloride (98-107) mmol/L Carbon Dioxide (21-32) mmol/L Anion Gap (3-11) BUN (7-18) mg/dl Creatinine (0.6-1.2) mg/dl Est Cr Clr Drug Dosing ml/min Est GFR ( Amer) Est GFR (Non-Af Amer) BUN/Creatinine Ratio (10-20) Glucose (70-99) mg/dl Calcium (8.5-10.1) mg/dl Magnesium (1.8-2.4) mg/dl Total Bilirubin (0.2-1) mg/dl AST (15-37) U/L ALT (12-78) U/L Alkaline Phosphatase (45-117) U/L Troponin I (0-0.045) ng/ml Total Protein (6.4-8.2) gm/dl Albumin (3.4-5.0) gm/dl Globulin (2.5-4.0) gm/dl Albumin/Globulin Ratio (0.9-2) Urine Color Yellow Urine Appearance Clear (Clear) Urine pH 5.0 (4.5-7.5) Ur Specific Magnolia 1.015 (1.000-1.030) Urine Protein Negative (Negative) Urine Glucose (UA) Negative (Negative) Urine Ketones Negative (Negative) Urine Blood Negative (Negative) Urine Nitrite Positive A (Negative) Urine Bilirubin Negative (Negative) Urine Urobilinogen Negative (Negative) Ur Leukocyte Esterase 1+ H (Negative) Urine WBC (Auto) 1-5 (0-5) /hpf Urine RBC (Auto) 0-4 (0-4) /hpf U Hyaline Cast (Auto) 5-10 H (0-5) /lpf U Epithel Cells (Auto) 10-20 H (0-5) /lpf Urine Bacteria (Auto) Negative (Negative) Administered Medications Discontinued Medications Furosemide (Furosemide 40 Mg/4 Ml Vial) 40 mg IV NOW STA Stop: 09/24/20 11:26 Last Admin: 09/24/20 11:54 Dose: 40 mg Documented by: [id number] Discharge Plan Visit Data Chief Complaint: Shortness of Breath/Dyspnea Stated Complaint: FULL OF FLUID ED Provider: Seamus Costa Discharge Problem: Volume overload, Breathlessness, Leg swelling Patient Disposition: Admitted As Inpatient Discharge Instructions Interventions: ED Discharge Assessment Last Done: 09/24/20 13:06 Discharge Problem: Volume overload Qualifiers: Hypervolemia type: other Qualified Code(s): E87.79 - Other fluid overload
[2020-09-24 10:14] LABS: Basophils # (auto) 0.02 K/uL (0-0.2); Basophils % (auto) 0.3 %; Eosinophils # (auto) 0.15 K/uL (0-0.5); Eosinophils % (auto) 2.1 %; Hematocrit (blood only) 26.8 % (37-47); Hemoglobin 7.9 g/dL (12.0-16.0); Immature Granulocytes # (auto) 0.02 K/uL (0.00-0.02); Immature Granulocytes % (auto) 0.3 %; Lymphocytes # (auto) 0.68 K/uL (1.2-3.4); Lymphocytes % (auto) 9.6 %; Mean Corpuscular Hemoglobin 26.9 pg (25-34); Mean Corpuscular Hgb Conc 29.5 g/dL (32-36); Mean Corpuscular Volume 91.2 fL (80-100); Mean Platelet Volume 8.2 fL (7.4-10.4); Monocytes # (auto) 0.48 K/uL (0.11-0.59); Monocytes % (auto) 6.8 %; Neutrophils # (auto) 5.73 K/uL (1.4-6.5); Neutrophils % (auto) 80.9 %; Platelet Count 204 K/uL (130-400); RDW Coefficient of Variation 18.6 % (11.5-14.5); RDW Standard Deviation 62.1 fL (36.4-46.3); Red Blood Count 2.94 M/uL (4.2-5.4); White Blood Count 7.08 K/uL (4.8-10.8)
--- NOTE | 2020-09-24 10:27 | XRay Report ---
XR chest 1V portable CLINICAL HISTORY: Dyspnea COMPARISON STUDY: Chest CT August 04, 2020. Chest radiograph September 22, 2020. FINDINGS: There is no pneumothorax or pleural effusion. Postoperative findings within the right lung are unchanged. Right hilar prominence is unchanged. There is moderate cardiomegaly with pulmonary vas cular congestion. This is similar to prior exam. There is no consolidation to suggest pneumonia. Appe arance of the chest is unchanged. IMPRESSION: No change in appearance of the chest. Cardiomegaly with pulmonary vascular congestion. ACT 112: Negative or not required by law. Electronically signed by: Dennis Hernadez M.D. 09/24/2020 10:26 AM
[2020-09-24 10:29] LABS: INR 1.3 (0.9-1.1); Partial Thromboplastin Ratio 1.1; Partial Thromboplastin Time 30.2 Seconds (21.0-31.0); Prothrombin Time 13.4 Seconds (9.0-12.0)
[2020-09-24 10:38] LABS: BUN Creatinine Ratio 31.4 (10-20); Creatinine Clr Calc Pharmacy 44.3 ml/min; Est GFR (African American) 42.2; Est GFR (Non-African American) 36.4; Magnesium 2.3 mg/dl (1.8-2.4); Potassium 3.6 mmol/L (3.5-5.1)
[2020-09-24 10:39] LABS: Ovalocytes 1+
[2020-09-24 10:42] LABS: Albumin Globulin Ratio 0.7 (0.9-2); Bilirubin,Total 0.8 mg/dl (0.2-1); Globulin 4.1 gm/dl (2.5-4.0); Total Protein 7.1 gm/dl (6.4-8.2); Troponin I 0.021 ng/ml (0-0.045)
[2020-09-24] MEDS ORDERED: FUROSEMIDE 40 MG/4 ML VIAL IV STA (11:25)
[2020-09-24 12:13] LABS: Appearance Urine Clear (Clear); Bacteria Urine Automated Negative (Negative); Bilirubin Urine Negative (Negative); Blood Urine Negative (Negative); Color Urine Yellow; Glucose Urine UA Negative (Negative); Ketones Urine Negative (Negative); Leukocyte Esterase Urine 1+ (Negative); Nitrite Urine Positive (Negative); Protein Urine Negative (Negative); RBC Urine Automated 0-4 /hpf (0-4); Specific Gravity Urine 1.015 (1.000-1.030); Urobilinogen Urine Negative (Negative)
--- NOTE | 2020-09-24 12:17 | History & Physical Report ---
Date of Service September 24, 2020 Assessment & Plan (1) Volume overload: Patient is volume overloaded likely not responding to outpatient Lasix due to noncompliance with noninvasive positive pressure ventilation at night. He freely admits that because of her choice of where she sleeps with it she sleeps in her hospital bed or her recliner he does not take her CPAP unit with her. Reinforced the need to do this. Seemingly accepting this. She seems to have nasal pillows for her pressure device at home and her daughters will try to bring them in. To this end we will use Lasix 40 IV twice daily low-salt diet consideration of a chlorthalidone or Zaroxolyn if she does not have good diur esis. There was some documentation in her chart that her dry weight is around 253 which is 10 pounds lower than what she is currently however the patient states that at one point time she did go below 200 pounds after aggressive diuresis. We will watch her potassium and magnesium. Her last echocardiogram was in the late fall 2018 a repeat echocardiogram will be performed at that time she is intact ejection fraction and only mild diastolic dysfunction and mild valvular heart disease (2) Venous stasis ulcer of right lower leg with edema of right lower leg: Patient is been seeing wound care for a heel ulceration present on admission wound care nursing will be ordered (3) Anemia: Patient has a longstanding history of anemia likely anemia of chronic disease she also is a history of iron deficiency anemia continue her iron at this point in time (4) Type 2 diabetes mellitus with diabetic neuropathy, with long-term current use of insulin: She typically cooks takes insulin detemir 22 twice daily with sliding scale these will be continued with a diabetic diet (5) CAD (coronary artery disease): Previous history of CABG, not on therapy at presentation. Typically on Lasix hydralazine metoprolol also not seeing a statin in her med list does previously see Dr. Alberts for cardiology as an outpatient (6) CKD (chronic kidney disease), stage III: Patient is chronic kidney disease stage III follow carefully with diuresis with Lasix (7) Atrial fibrillation: Rate controlled with metoprolol XL anticoagulated with apixaban 5 twice daily (8) Gout: 18 allopurinol for gout (9) Obesity (BMI 30-39.9): bmi of 43 affects her breathing History of Present Illness Primary Care Provider: Jaquelin Crowley MD 75-year-old female recently in our emergency department with complaints of lower extremity swelling. Reported was given additional doses of Lasix. Then according to the patient her primary care provider did not want her to continue on additional doses of Lasix. Patient feels she is a significant weight gain. Reports to be noncompliant with her CPAP. The patient said no chest pain she is dyspneic but only likely with her increased effort of movement as she is a paraplegic using or lift at home. She has prehospital lower extremity wounds for which she sees wound care particularly left heel wound. She complains of having some orthopnea. Patient's body weight is about 10 pounds at least over her most recent dry weight loss echocardiogram that showed preserved ejection fraction making this diastolic heart failure or heart failure preserved ejection fraction. Will be made for diuresis enrollment in the heart failure clinic reinforcing use of her noninvasive positive pressure ventilation Allergies Allergy/AdvReac Type Severity Reaction Status Date / Time metoclopramide [From Reglan] Allergy Mild "went Verified 09/24/20 10:48 crazy" NSAIDS (Non-Steroidal Allergy Unknown UNK? Verified 09/24/20 10:48 Anti-Inflamma DENIES SOB. capsaicin AdvReac Severe SHORTNESS Verified 09/24/20 10:48 OF BREATH diclofenac AdvReac Severe SHORTNESS Verified 09/24/20 10:48 OF BREATH Diclopak AdvReac Severe SHORTNESS Verified 07/24/18 10:57 OF BREATH Home Medications Home Medications Medication Instructions Recorded Confirmed Type nitroglycerin 0.4 mg sublingual 0.4 mg SL UD PRN tab 07/30/18 09/24/20 History tablet magnesium chloride 64 mg 64 mg PO TID tab 06/02/19 09/24/20 History (magnesium chloride) tablet,delayed release insulin syringe-needle U-100 1 mL #300 ea 07/15/19 09/06/20 Rx 30 gauge x 04/16" amitriptyline 50 mg tablet 50 mg PO HS #90 tab 10/16/19 09/24/20 Rx cholecalciferol (vitamin D3) 125 mcg PO QAM 04/16/20 09/24/20 History acetaminophen 325 mg capsule 650 mg PO BID PRN cap MDD 10 tabs 04/22/20 09/24/20 History cadexomer iodine 0.9 % topical gel 40 g TOP DAILY 30 Days #40 gm 05/06/20 09/24/20 Rx hydralazine 50 mg tablet 50 mg PO TID #270 tab 05/19/20 09/24/20 Rx metoprolol succinate 25 mg 25 mg PO DAILY #90 tab 05/19/20 09/24/20 Rx tablet,extended release 24 hr allopurinol 100 mg tablet 100 mg PO QAM #90 tab 06/13/20 09/24/20 Rx apixaban 5 mg tablet 5 mg PO BID #180 tab 06/13/20 09/24/20 Rx ferrous sulfate 325 mg (65 mg 325 mg PO BID #180 tab 07/13/20 09/24/20 Rx iron) tablet ropinirole 5 mg tablet 5 mg PO QID #270 tab 07/20/20 09/24/20 Rx rosuvastatin 40 mg tablet 40 mg PO DAILY #90 tab 07/20/20 09/24/20 Rx insulin detemir U-100 100 unit/mL 22 unit SUBCUT BID ml 08/05/20 09/24/20 History (3 mL) subcutaneous pen potassium chloride 20 mEq 20 meq PO BID #60 tab 08/17/20 09/24/20 Rx tablet,extended release insulin aspart U-100 100 unit/mL 5 units SQ QID ml 09/02/20 09/24/20 History subcutaneous solution lidocaine 5 % topical patch 2 patch TOP DAILY PRN 09/02/20 09/24/20 History BD Ultra Fine Lancets 33 gauge #200 ea NS 09/20/20 09/20/20 Rx True Metrix Glucose Meter #1 ea NS 09/20/20 09/20/20 Rx True Metrix Glucose Test Strip #200 ea NS 09/20/20 09/20/20 Rx albuterol sulfate [Ventolin HFA] 1 inh INHALATION DIRECTED PRN 09/24/20 09/24/20 History baclofen 2.5 mg PO HS 09/24/20 09/24/20 History furosemide 40 mg PO PM 09/24/20 09/24/20 History furosemide [Lasix] 60 mg PO QAM 09/24/20 09/24/20 History Past Med/Surg History Medical History Acute dehydration Acute osteomyelitis of toe of left foot Acute UTI (urinary tract infection) Anemia Anemia Aortic stenosis MILD-MOD per 08/2019 echo, but NO SIGNIFICANT STENOSIS noted on 10/12/19 echo. Atrial fibrillation On Eliquis CAD (coronary artery disease) s/p CABG x 2 in 2012. CAD has remained quiescent since then. Follows with Dr. Hernandez, who cleared the patient for lumbar surgery 07/2019. CHF (congestive heart failure) Appears euvolemic on exam at [facility] but unable to asses pedal edema due to b/l medical walking shoes for diabetic ulcers. EF 50-55% on most recent echo. Chronic kidney disease, stage 3 Clostridium difficile infection DX [facility] 12/2018 @ [facility]. Stool NEGATIVE 05/25/19. Diabetes mellitus, type 2 IDDM Diabetic foot ulcer associated with type 2 diabetes mellitus Following with wound clinic [facility]. DVT prophylaxis Dysphagia E. coli infect Encounter for immunization Encounter for monitoring diuretic therapy Fatty liver Gout Hypertension Hypoglycemia Indwelling Soto catheter present Lumbar spinal stenosis Severe at L4-5. 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 Lung cancer S/P RM lobectomy 2015, follows with Dr. Perkins. Myocardial Infarction 2013 Nausea & vomiting Neuroendocrine tumor Neurogenic bladder Neuropathic ulcer of toe of right foot Orthopnea Osteoarthritis Paraplegia Since 07/2019 decompression/fusion @ [facility] ([facility]) Pressure ulcer of ischium, stage 2 Restless leg syndrome Sleep apnea CPAP Stroke-like symptoms Transient ischemic attack (TIA) 10/2019. Urinary tract infection Wheelchair dependent Surgical History Fusion of spine lumbar (07/2019) at [facility] --- uneventful surgery/anesthesia and hospitalization, but patient developed subsequent LE paraplegia. 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 History of appendectomy History of bilateral knee replacement History of bronchoscopy History of cardiac cath 2012 - [facility] - [place] - NO STENTS/ANGIOPLASTY -- > CABG History of cholecystectomy History of colonoscopy 11/2018 [facility] History of esophagogastroduodenoscopy (EGD) 11/2018 [facility] History of hysterectomy with oophorectomy KEARA with BSO History of lobectomy of lung RML History of ovarian cystectomy History of surgery Right VATS PROCEDURE History of tubal ligation Hx of CABG 2012 - - [place] - [facility] - 2 VESSELS Family History Daughter Family history of diabetes mellitus Mother Heart disease Hypertension Myocardial infarction Father Hypertension Other Diabetes Denies family history of Ovarian cancer Prostate cancer Crohn's disease Breast cancer Colorectal cancer Ulcerative colitis Social History Smoking Status: Former smoker Tobacco Type: Cigarettes Cigarettes Per Day: 10; Number of Years Since Quit: 8; Second Hand Exposure: No; Hx Alcohol Use: No Hx Substance Use: No Preferred Language: Finnish Communication Ability: Effective Visual Impairment: No Limitations Hearing Ability: Normal Photographic Process Screen Maker Required: No Beliefs That Will Affect Care: None marital status: Current Living Situation: Spouse Current Living Situation Comment: Live with . current occupational status: retired Feels Safe at Home: Yes Childhood Exposure to Second-Hand Smoke: No Dental Care, Regularly: No Physical Activity Frequency: Does not Exercise Seatbelt Use: always Sunscreen Use: No Assistive Devices: Mechanical Lift and Wheelchair Review of Systems Review of Systems: Moderate distress and fatigue no headache, blurry or double vision no speech or swallowing issues no chest pain, pressure or palpitations Increased over baseline shortness of breath, no cough or wheezes no abdominal pain, nausea or vomiting, diarrhea or constipation no dysuria, hematuria or frequency no focal joint pain does have significant bilateral lower extremity swelling no back pain, CVA tenderness or radicular pain The existing outpatient open areas on her heel seeing wound care no focal signs of weakness or numbness or altered sensation no complaints of anxiety or depression. Physical Exam Physical Exam: The patient appeared well nourished and normally developed she does have fairly significant swelling to her lower legs bilaterally. Vital signs as documented. Head exam is normocephalic atraumatic no scleral icterus Neck is without JVD, thyromegaly, or carotid bruits. Lungs are clear to auscultation, no focal loss of breath sounds Cardiac exam, rate controlled but irregular.slight systolic ejection, rubs or gallops. Abdominal exam reveals normal bowel sounds, soft non tender, no masses Extremities are edematous bilaterally to the thigh Neurologic exam is alert and oriented, pre-existing lower extremity paraplegia secondary to spinal tumor Skin is with prehospital open areas to her heel Psychologically is without concerns for anxiety or depression. Results & Data Results & Data ([facility]) Vital Signs (Past 12 Hours) Vital Signs Temp Pulse Resp BP Pulse Ox 10/24/20 10:26 60 19 129/68 97 09/24/20 10:07 94 09/24/20 09:42 98.6 F 69 18 131/61 97 Chest x-ray 09/24/2020 shows no change in appearance of previous chest cardiomegaly and pulmonary vascular congestion is seen EKG shows rate controlled atrial fibrillation Code Status & VTE Plan VTE Prophylaxis Plan VTE Prophylaxis will be ordered: Yes PG Care Time/CCT Total # of Minutes Spent Total Time Spent with Patient: Total time spent is greater than 50% in coordination of care (as documented) at patient's floor/unit and/or counseling patient: Coding Level of Care Code 66560 Initial Inpt Care Lvl 3 Diagnoses Volume overload E87.79 Hypervolemia type: other Venous stasis ulcer of right lower leg with edema of right lower leg I83.019; I83.891; L97.919; R60.9 Anemia D64.9 Type 2 diabetes mellitus with diabetic neuropathy, with long-term current use of insulin E11.40; Z79.4 CAD (coronary artery disease) I25.10 CKD (chronic kidney disease), stage III N18.3 Atrial fibrillation I48.91 Gout M10.9 Obesity (BMI 30-39.9) E66.9 (1) Volume overload Hypervolemia type: other Qualified Code(s): E87.79 - Other fluid overload
[2020-09-24] MEDS ORDERED: ONDANSETRON INJ 2 MG/ML 2 ML VIAL IV PRN (13:38)
[2020-09-24] MEDS ORDERED: GLUCOSE 40% GEL 15 GM TUBE PO PRN (13:38)
[2020-09-24] MEDS ORDERED: CARBOHYDRATES FOR HYPOGLYCEMIA PO PRN (13:38)
[2020-09-24] MEDS ORDERED: GLUCAGON FOR INJ 1 MG VIAL SQ PRN (13:38)
[2020-09-24] MEDS ORDERED: FUROSEMIDE 40 MG/4 ML VIAL IV SCH (13:38)
[2020-09-24] MEDS ORDERED: GLUCOSE 10 TABS/TUBE PO PRN (13:38)
[2020-09-24] MEDS ORDERED: NITROGLYCERIN SL 0.4 MG/TAB TAB SL PRN (13:38)
[2020-09-24] MEDS ORDERED: DEXTROSE 50% 50 ML SYRINGE IV PRN (13:38)
[2020-09-24] MEDS ORDERED: POLYETHYLENE (MIRALAX) 17 GM PACK PO PRN (13:38)
[2020-09-24] MEDS ORDERED: LIDOCAINE 5% 1 PATCH TD PRN (13:38)
[2020-09-24] MEDS ORDERED: POTASSIUM CHLORIDE CRTAB 20 MEQ TABCR PO STA (13:38)
--- NOTE | 2020-09-24 14:04 | Pharmacy Report ---
Pharmacy Glycemic Short Note 2 - Date of Service September 24, 2020 - Glycemic Short BSG Results (Last 24 hours): 09/24/20 10:05 Glucose 114 H OUTPATIENT ANTIDIABETIC REGIMEN: * Levemir 22 units bid, novolog 5 units qid + SSI ASSESSMENT: 09/24: * 75 year old female admitted with symptoms of heart failure. Type 2 diabetic managed on insulin at home * [facility]. Per notes, patient adjusts bolus insulin based upon BSG value * Plan to continue home Levemir dosing / add correctional insulin based upon stress of 2/3 dosing PLAN FOR INPATIENT GLYCEMIC CONTROL: * Hold outpatient oral diabetes medications * Basal insulin * Levemir 22 units bid * Bolus insulin * NovoLog per scale ACHS or Q6hrs while NPO * Goal Range: Low 110 mg/dL - High 140 mg/dL * Correction Factor: 20 mg/dL/unit * Nutritional / Prandial insulin per carb ratio of 1 unit per 6 grams CHO consumed PLAN FOR DISCHARGE: * tbd
[2020-09-24] MEDS ORDERED: PHARMACY GLYCEMIC MGMT CONSULT PRN (14:05)
[2020-09-24] MEDS: hydrALAZINE TAB 50 MG TAB PO SCH ×2 (15:36→21:00)
[2020-09-24] MEDS: MAGNESIUM CHLORIDE 64MG DELAYED REL TAB PO SCH ×2 (15:36→20:58)
[2020-09-24] MEDS: ACETAMINOPHEN 325 MG TAB PO PRN (15:38)
[2020-09-24] MEDS: [UNRECOGNIZED DRUG - REMARK] SCH (15:39)
--- NOTE | 2020-09-24 17:19 | XCELERA ---
[id number]
[2020-09-24] MEDS: FUROSEMIDE 40 MG in SYRINGE 0 ML IV SCH (17:37)
[2020-09-24] MEDS: INSULIN ASPART 100 UNITS/ML 3 ML PEN SC SCH ×2 (17:38→20:59)
[2020-09-24] MEDS: APIXABAN 5 MG TABLET PO SCH (20:59)
[2020-09-24] MEDS: AMITRIPTYLINE HCL 50 MG TAB PO SCH (20:59)
[2020-09-24] MEDS: POTASSIUM CHLORIDE CRTAB 20 MEQ TABCR PO SCH (20:59)
[2020-09-24] MEDS ORDERED: INSULIN DETEMIR FLEXPEN/FLEX TOUCH 100 UNITS/ML 3ML SQ SCH (21:00)
[2020-09-24] MEDS: BACLOFEN 10 MG TAB PO SCH (21:00)
[2020-09-24] MEDS: FERROUS SULFATE 325 MG TAB PO SCH (21:00)
[2020-09-25] MEDS: [UNRECOGNIZED DRUG - REMARK] SCH ×2 (01:14→08:37)
[2020-09-25 08:22] LABS: BUN Creatinine Ratio 32.4 (10-20); Calcium 8.6 mg/dl (8.5-10.1); Est GFR (African American) 44.1; Potassium 3.7 mmol/L (3.5-5.1)
[2020-09-25 08:24] LABS: Hematocrit (blood only) 25.8 % (37-47); Hemoglobin 7.4 g/dL (12.0-16.0); Mean Corpuscular Hemoglobin 26.2 pg (25-34); Mean Corpuscular Hgb Conc 28.7 g/dL (32-36); Mean Corpuscular Volume 91.5 fL (80-100); Mean Platelet Volume 8.5 fL (7.4-10.4); Platelet Count 208 K/uL (130-400); RDW Coefficient of Variation 18.5 % (11.5-14.5); RDW Standard Deviation 62.6 fL (36.4-46.3); Red Blood Count 2.82 M/uL (4.2-5.4)
[2020-09-25] MEDS: INSULIN ASPART 100 UNITS/ML 3 ML PEN SC SCH ×4 (08:43→20:54)
[2020-09-25] MEDS: hydrALAZINE TAB 50 MG TAB PO SCH ×3 (08:44→20:48)
[2020-09-25] MEDS: ASPIRIN 81 MG ECTAB PO SCH (08:44)
[2020-09-25] MEDS: FERROUS SULFATE 325 MG TAB PO SCH (08:44)
[2020-09-25] MEDS: APIXABAN 5 MG TABLET PO SCH ×2 (08:44→20:51)
[2020-09-25] MEDS: ROSUVASTATIN CALCIUM 20 MG TAB PO SCH (08:44)
[2020-09-25] MEDS: POTASSIUM CHLORIDE CRTAB 20 MEQ TABCR PO SCH (08:45)
[2020-09-25] MEDS: FUROSEMIDE 40 MG in SYRINGE 0 ML IV SCH ×2 (08:45→17:16)
[2020-09-25] MEDS: allopurinoL 100 MG TAB PO SCH (08:46)
[2020-09-25] MEDS: CHOLECALCIFEROL 1,000 UNITS 25 MCG TAB PO SCH (08:46)
[2020-09-25] MEDS: METOPROLOL SUCC 25MG EXT REL TAB PO SCH (08:46)
[2020-09-25] MEDS: ACETAMINOPHEN 325 MG TAB PO PRN ×2 (08:47→20:56)
[2020-09-25] MEDS: MAGNESIUM CHLORIDE 64MG DELAYED REL TAB PO SCH ×3 (08:49→20:48)
[2020-09-25] MEDS ORDERED: INSULIN DETEMIR FLEXPEN/FLEX TOUCH 100 UNITS/ML 3ML SQ SCH (09:00)
--- NOTE | 2020-09-25 10:54 | Pharmacy Report ---
Pharmacy Glycemic Short Note 2 - Date of Service September 25, 2020 - Glycemic Short BSG Results (Last 24 hours): 09/24/20 09/24/20 09/25/20 16:31 20:43 07:16 Glucose 81 POC Glucose 100 H 100 H OUTPATIENT ANTIDIABETIC REGIMEN: * Levemir 22 units bid, novolog 5 units qid + SSI ASSESSMENT: 09/25: * Patient received 22 units (home dose of basal insulin) of insulin yesterday * Fasting BSG this AM 81 mg/dL - will decrease AM basal dose, as PO intake poor yesterday * Plan to use scale for basal for HS to ensure diet improves 09/24: * 75 year old female admitted with symptoms of heart failure. Type 2 diabetic managed on insulin at home * Patient follows with [facility] for diabetes management. Per notes, patient adjusts bolus insulin based upon BSG value * Plan to continue home Levemir dosing / add correctional insulin based upon stress of 2/3 dosing PLAN FOR INPATIENT GLYCEMIC CONTROL: * Hold outpatient oral diabetes medications * Basal insulin * Levemir 18 this AM * Levemir 18-22 units at HS depending on BSG value * Bolus insulin * NovoLog per scale ACHS or Q6hrs while NPO * Goal Range: Low 110 mg/dL - High 140 mg/dL * Correction Factor: 20 mg/dL/unit * Nutritional / Prandial insulin per carb ratio of 1 unit per 6 grams CHO consumed PLAN FOR DISCHARGE: * A1c pending - Patient follows with [facility] for diabetes management, would defer adjustments to insulin regimen to them
--- NOTE | 2020-09-25 13:45 | Hospitalist Progress Note ---
Date of Service September 25, 2020 Assessment & Plan (1) Volume overload: Echo on 09/24 showed EF 50-55% & mild concentric LVH. - Continue Lasix 40 mg IV BID - Monitor I&Os, weights - Improving today, but clearly still with large volume overload. (2) Anemia: Patient has a longstanding history of anemia, likely anemia of chronic disease. However, she is considerably lower than priors. - Will get iron labs tomorrow AM. - Will give IV iron if indicated as this can improve HF outcomes. - Continue oral iron - If it falls further, consider GI consult. Presently no indication of acute GI bleed, so will continue anticoagulation. (3) Type 2 diabetes mellitus with diabetic neuropathy, with long-term current use of insulin: A1c was 6.9% in 2019, but nothing in our system more recently. - Glycemic pharmacist consulted - Continue long-acting/sliding scale insulins. -> Sugars 80-125 since admission. (4) CAD (coronary artery disease): Previous history of CABG. - Continue beta-jody, ASA, statin, hydralazine (5) CKD (chronic kidney disease), stage III: Baseline Cr ~1.1-1.3, eGFR ~45. - Cr presently at baseline or just slightly above. - Monitor with diuresis (6) Atrial fibrillation: HR in the 80s at present. In chronic afib. - Rate controlled with metoprolol XL. - Anticoagulated with apixaban 5 twice daily (7) Venous stasis ulcer of right lower leg with edema of right lower leg: Patient is been seeing wound care for a heel ulceration present on admission. - Consult wound care nursing (8) Gout: No active flare at present. - Continue allopurinol (9) DVT prophylaxis: Apixaban Admission and Anticipated Discharge Date Admission Date: September 24, 2020 Subjective Feeling better today. Some shortness of breath, but still lots of swelling. Reports no fevers/chills, chest pain, abdominal pain, nausea, or vomiting. Physical Exam Constitutional: WD/WN, vitals as above + obese Eyes: EOM intact bilaterally; no conjunctival abnormality ENMT: external ear and nose normal, oropharynx normal Neck: trachea midline, no thyromegaly normal visual inspection Respiratory: no respiratory distress Auscultation: + crackles Cardiovascular: Rate/Rhythm: regular rate and regular rhythm Heart Sounds: normal S1 and normal S2 Extremities: + edema Gastrointestinal (Abdomen): Inspection/Auscultation: abdomen normal to inspection; abdomen not distended Musculoskeletal: no cyanosis or clubbing, extremities motor strength 5/5 Skin: no rashes, warm and dry Neurologic: moves all extremities and awake Psychiatric: Orientation: alert, oriented to person and cooperative Results & Data Results & Data ([facility]) Vital Signs (Past 12 Hours) Vital Signs Temp Pulse Pulse Resp BP BP Pulse Ox 09/25/20 12:04 37.1 C 80 18 119/63 90 09/25/20 07:21 72 09/25/20 06:59 36.3 C L 73 18 129/67 92 09/25/20 03:40 36.8 C 86 20 125/66 93 PG Care Time/CCT Total # of Minutes Spent Total Time Spent with Patient: Total time spent is greater than 50% in coordination of care (as documented) at patient's floor/unit and/or counseling patient: Coding Level of Care Code 67627 Subseq Hosp Care Lvl 3 Diagnoses Volume overload E87.79 Hypervolemia type: other Anemia D64.9 Type 2 diabetes mellitus with diabetic neuropathy, with long-term current use of insulin E11.40; Z79.4 CAD (coronary artery disease) I25.10 CKD (chronic kidney disease), stage III N18.3 Atrial fibrillation I48.91 Venous stasis ulcer of right lower leg with edema of right lower leg I83.019; I83.891; L97.919; R60.9 Gout M10.9 DVT prophylaxis Z29.9 (1) Volume overload Hypervolemia type: other Qualified Code(s): E87.79 - Other fluid overload
[2020-09-25] MEDS: AMITRIPTYLINE HCL 50 MG TAB PO SCH (20:48)
[2020-09-25] MEDS: INSULIN DETEMIR FLEXPEN/FLEX TOUCH 100 UNITS/ML 3ML SQ SCH (20:53)
[2020-09-25] MEDS: BACLOFEN 10 MG TAB PO SCH (21:07)
--- NOTE | 2020-09-25 21:51 | Electrocardiogram Report ---
Test Reason : Blood Pressure : / mmHG Vent. Rate : 064 BPM Atrial Rate : 096 BPM P-R Int : 000 ms QRS Dur : 130 ms QT Int : 466 ms P-R-T Axes : 000 -51 104 degrees QTc Int : 480 ms Atrial fibrillation Left axis deviation Left ventricular hypertrophy with QRS widening with repolarization abnormality Abnormal ECG When compared with ECG of 22-SEP-2020 18:13, No significant change was found Confirmed by Satya Lindquist ([id number]) on 09/25/2020 9:51:02 PM Referred By: REFERRED SELF Confirmed By:Satya Lindquist
[2020-09-26] MEDS: MELATONIN 3 MG TAB PO PRN ×2 (01:09→21:16)
[2020-09-26 06:26] LABS: Estimated Average Glucose 128 mg/dl; Hemoglobin A1C 6.1 % (4.5-5.6)
[2020-09-26 06:49] LABS: Hematocrit (blood only) 24.2 % (37-47); Hemoglobin 7.4 g/dL (12.0-16.0); Mean Corpuscular Hemoglobin 27.3 pg (25-34); Mean Corpuscular Hgb Conc 30.6 g/dL (32-36); Mean Corpuscular Volume 89.3 fL (80-100); Mean Platelet Volume 8.1 fL (7.4-10.4); Platelet Count 182 K/uL (130-400); RDW Coefficient of Variation 18.4 % (11.5-14.5); Red Blood Count 2.71 M/uL (4.2-5.4); White Blood Count 7.69 K/uL (4.8-10.8)
[2020-09-26 07:20] LABS: BUN Creatinine Ratio 33.4 (10-20); Calcium 8.7 mg/dl (8.5-10.1); Creatinine Clr Calc Pharmacy 45.2 ml/min; Est GFR (African American) 44.5; Est GFR (Non-African American) 38.4; Magnesium 2.4 mg/dl (1.8-2.4); Potassium 3.4 mmol/L (3.5-5.1)
[2020-09-26] MEDS: hydrALAZINE TAB 50 MG TAB PO SCH ×2 (09:24→14:27)
[2020-09-26] MEDS: METOPROLOL SUCC 25MG EXT REL TAB PO SCH (09:24)
[2020-09-26] MEDS: FUROSEMIDE 40 MG in SYRINGE 0 ML IV SCH ×2 (09:25→17:29)
[2020-09-26] MEDS: APIXABAN 5 MG TABLET PO SCH ×2 (09:25→21:16)
[2020-09-26] MEDS: ASPIRIN 81 MG ECTAB PO SCH (09:25)
[2020-09-26] MEDS: ROSUVASTATIN CALCIUM 20 MG TAB PO SCH (09:26)
[2020-09-26] MEDS: MAGNESIUM CHLORIDE 64MG DELAYED REL TAB PO SCH ×3 (09:26→21:16)
[2020-09-26] MEDS: CHOLECALCIFEROL 1,000 UNITS 25 MCG TAB PO SCH (09:26)
[2020-09-26] MEDS: allopurinoL 100 MG TAB PO SCH (09:26)
[2020-09-26] MEDS: INSULIN ASPART 100 UNITS/ML 3 ML PEN SC SCH ×4 (09:28→20:25)
[2020-09-26] MEDS: INSULIN DETEMIR FLEXPEN/FLEX TOUCH 100 UNITS/ML 3ML SQ SCH ×2 (09:31→21:21)
[2020-09-26] MEDS: ACETAMINOPHEN 325 MG TAB PO PRN ×2 (12:56→21:23)
--- NOTE | 2020-09-26 13:50 | Hospitalist Progress Note ---
Date of Service September 26, 2020 Assessment & Plan (1) Volume overload: Echo on 09/24 showed EF 50-55% & mild concentric LVH. 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 - Continue Lasix 40 mg IV BID - Monitor I&Os, weights - Improving today, but clearly still with large volume overload. Kidneys doing well with present diuresis. Net negative 2.5L; weight down 5 kg. (2) Anemia: Patient has a longstanding history of anemia, likely anemia of chronic disease. However, she is considerably lower than priors. Iron studies indicate mix of iron deficiency and chronic disease. - Continue oral iron - Will give 3 rounds of IV iron while in the hospital. - If it falls further, consider GI consult. Presently no indication of acute GI bleed, so will continue anticoagulation. (3) Type 2 diabetes mellitus with diabetic neuropathy, with long-term current use of insulin: A1c was 6.9% in 2019, but nothing in our system more recently. - Glycemic pharmacist consulted - Continue long-acting/sliding scale insulins. -> Sugars 60-125 since admission. (4) CAD (coronary artery disease): Previous history of CABG. - Continue beta-jody, ASA, statin, hydralazine (5) CKD (chronic kidney disease), stage III: Baseline Cr ~1.1-1.3, eGFR ~45. - Cr presently at baseline or just slightly above. - Monitor with diuresis -> Stable. (6) Atrial fibrillation: HR in the 80s at present. In chronic afib. - Rate controlled with metoprolol XL. - Anticoagulated with apixaban 5 twice daily (7) Venous stasis ulcer of right lower leg with edema of right lower leg: Patient is been seeing wound care for a heel ulceration present on admission. - Consult wound care nursing (8) Gout: No active flare at present. - Continue allopurinol (9) DVT prophylaxis: Apixaban Admission and Anticipated Discharge Date Admission Date: September 24, 2020 Subjective Feeling better today. Reports no fevers/chills, chest pain, shortness of breath, abdominal pain, nausea, or vomiting. Still significant edema in her legs. Physical Exam Constitutional: WD/WN, vitals as above + obese Eyes: EOM intact bilaterally; no conjunctival abnormality ENMT: external ear and nose normal, oropharynx normal Neck: trachea midline, no thyromegaly normal visual inspection Respiratory: no respiratory distress Auscultation: + crackles Cardiovascular: Rate/Rhythm: regular rate and regular rhythm Heart Sounds: normal S1 and normal S2 Extremities: + edema Gastrointestinal (Abdomen): Inspection/Auscultation: abdomen normal to inspection; abdomen not distended Musculoskeletal: no cyanosis or clubbing, extremities motor strength 5/5 Skin: no rashes, warm and dry Neurologic: moves all extremities and awake Psychiatric: Orientation: alert, oriented to person and cooperative Results & Data Results & Data ([facility]) Vital Signs (Past 12 Hours) Vital Signs Temp Pulse Resp BP BP Pulse Ox 09/26/20 11:19 36.8 C 65 18 118/61 90 09/26/20 06:53 36.4 C L 68 18 137/54 L 90 09/26/20 03:43 36.7 C 68 18 124/60 90 PG Care Time/CCT Total # of Minutes Spent Total Time Spent with Patient: Total time spent is greater than 50% in coordination of care (as documented) at patient's floor/unit and/or counseling patient: Coding Level of Care Code 72252 Subseq Hosp Care Lvl 2 Diagnoses Volume overload E87.79 Hypervolemia type: other Anemia D64.9 Type 2 diabetes mellitus with diabetic neuropathy, with long-term current use of insulin E11.40; Z79.4 CAD (coronary artery disease) I25.10 CKD (chronic kidney disease), stage III N18.3 Atrial fibrillation I48.91 Venous stasis ulcer of right lower leg with edema of right lower leg I83.019; I83.891; L97.919; R60.9 Gout M10.9 DVT prophylaxis Z29.9 (1) Volume overload Hypervolemia type: other Qualified Code(s): E87.79 - Other fluid overload
--- NOTE | 2020-09-26 13:57 | Pharmacy Report ---
Pharmacy Glycemic Short Note 2 - Date of Service September 26, 2020 - Glycemic Short BSG Results (Last 24 hours): 09/25/20 09/25/20 09/26/20 16:36 20:24 06:28 Glucose 65 L POC Glucose 109 H 93 09/26/20 09/26/20 07:22 11:31 Glucose POC Glucose 88 125 H OUTPATIENT ANTIDIABETIC REGIMEN: * Levemir 22 units SQ BID * Novolog 5 units SQ QID + SSI * HbA1c: 6.1% (09/25/20) ASSESSMENT: 09/26/20: * Ms Ramires received 50 units of insulin yesterday. * Basal: 30 units * Prandial/correctional: 20 units * Several BSGs have been below goal range, with an episode of hypoglycemia (BSG 65mg/dL) this morning. * Basal insulin scale was reduced this morning and Novolog parameters were loosened. 09/24 * 75 year old female admitted with symptoms of heart failure. Type 2 diabetic managed on insulin at home * Patient follows with [facility] for diabetes management. Per notes, patient adjusts bolus insulin based upon BSG value * Plan to continue home Levemir dosing / add correctional insulin based upon stress of 2/3 dosing PLAN FOR INPATIENT GLYCEMIC CONTROL: * Basal insulin * Levemir 12-20 units SQ BID, based on scale (see EMR for details) * Bolus insulin * NovoLog per scale ACHS or Q6hrs while NPO * Goal Range: Low 110 mg/dL - High 140 mg/dL * Correction Factor: 25 mg/dL/unit * Nutritional / Prandial insulin per carb ratio of 1 unit per 7 grams CHO consumed PLAN FOR DISCHARGE: * A1c: 6.1% * Expect that pt may resume home regimen on discharge, as long as she does not report having episodes of hypoglycemia. * [facility] for diabetes management.
[2020-09-26] MEDS: IRON SUCROSE 200 MG in 0.9 % SODIUM CHLORIDE 100 ML IV SCH (14:35)
--- NOTE | 2020-09-26 16:09 | Heart Failure Consultation ---
Date of Consultation September 26, 2020 Assessment & Plan (1) Acute on chronic diastolic (congestive) heart failure: (2) Pulmonary hypertension: (3) Tricuspid regurgitation: (4) Wheelchair dependent: (5) Atrial fibrillation: (6) CAD (coronary artery disease): (7) CKD (chronic kidney disease), stage III: Patient remains hypervolemic on exam. Her symptoms are improving but she continues to have significant lower extremity edema. Continue wound care for ulceration. She is non ambulatory so exertional symptoms are difficult to assess. Symptoms and echocardiogram are consistent with RV systolic failure secondary to noncompliance with her CPAP. She is responding well to Lasix 40 mg IV BID. Weight is trending down each day. Continue to monitor kidney function and electrolytes. Continue to monitor strict I&Os. She is unable to do standing weights. Continue low sodium diet, less than 2,000 mg daily. Discussed the heart failure program and she is agreeable to participation. Will plan outpatient follow up within 7 days of discharge. Disposition: Will continue to follow during hospitalization. Anticipate close outpatient follow up with the heart failure program. History of Present Illness Attending Physician: Tai Kam MD Ms. Ramires is a 75-year-old female with a history including TIA, morbid obesity, paraplegia, CHF, coronary artery disease status post CABG, obstructive sleep apnea noncompliant with CPAP and history of neuroendocrine tumor of the right middle lobe status post resection in 2016. She's currently admitted for hypervolemia. Dr. Ramírez and are her primary cardiologists. She's been struggling with increasing edema, weight gain, and shortness of breath for several weeks. She presented to the ED on 09/22/20. She was treated with IV diuretics and discharged to home. She presented again on 09/24/20 with similar symptoms and was admitted for further management. ProBNP elevated at 4388. Chest xray consistent with pulmonary vascular congestion. Echocardiogram consistent with right sided failure, TR, and pulmonary hypertension. She has a history of non compliance with her CPAP. Hemoglobin is also slightly below baseline which might be contributing. Patient was referred to [facility] heart failure program on admission. Patient reports she's feeling improved. She is resting comfortably in bed with her head slightly elevated. She's been responding well to diuretics, Lasix 40 mg IV BID. She's net negative 2.5 L so far this admission. She continues to have lower extremity edema. She has a RLE wound. She denies chest pain, cough, wheezing. Allergies Allergy/AdvReac Type Severity Reaction Status Date / Time metoclopramide [From Reglan] Allergy Mild "went Verified 09/24/20 10:48 crazy" NSAIDS (Non-Steroidal Allergy Unknown UNK? Verified 09/24/20 10:48 Anti-Inflamma DENIES SOB. capsaicin AdvReac Severe SHORTNESS Verified 09/24/20 10:48 OF BREATH diclofenac AdvReac Severe SHORTNESS Verified 09/24/20 10:48 OF BREATH Diclopak AdvReac Severe SHORTNESS Verified 07/24/18 10:57 OF BREATH Home Medications Home Medications Medication Instructions Recorded Confirmed Type nitroglycerin 0.4 mg sublingual 0.4 mg SL UD PRN tab 07/30/18 09/24/20 History tablet magnesium chloride 64 mg 64 mg PO TID tab 06/02/19 09/24/20 History (magnesium chloride) tablet,delayed release insulin syringe-needle U-100 1 mL #300 ea 07/15/19 09/06/20 Rx 30 gauge x 5/16" amitriptyline 50 mg tablet 50 mg PO HS #90 tab 10/16/19 09/24/20 Rx cholecalciferol (vitamin D3) 125 mcg PO QAM 04/16/20 09/24/20 History acetaminophen 325 mg capsule 650 mg PO BID PRN cap MDD 10 tabs 04/22/20 09/24/20 History cadexomer iodine 0.9 % topical gel 40 g TOP DAILY 30 Days #40 gm 05/06/20 09/24/20 Rx hydralazine 50 mg tablet 50 mg PO TID #270 tab 05/19/20 09/24/20 Rx metoprolol succinate 25 mg 25 mg PO DAILY #90 tab 05/19/20 09/24/20 Rx tablet,extended release 24 hr allopurinol 100 mg tablet 100 mg PO QAM #90 tab 06/13/20 09/24/20 Rx apixaban 5 mg tablet 5 mg PO BID #180 tab 06/13/20 09/24/20 Rx ferrous sulfate 325 mg (65 mg 325 mg PO BID #180 tab 07/13/20 09/24/20 Rx iron) tablet ropinirole 5 mg tablet 5 mg PO QID #270 tab 07/20/20 09/24/20 Rx rosuvastatin 40 mg tablet 40 mg PO DAILY #90 tab 07/20/20 09/24/20 Rx insulin detemir U-100 100 unit/mL 22 unit SUBCUT BID ml 08/05/20 09/24/20 History (3 mL) subcutaneous pen potassium chloride 20 mEq 20 meq PO BID #60 tab 08/17/20 09/24/20 Rx tablet,extended release insulin aspart U-100 100 unit/mL 5 units SQ QID ml 09/02/20 09/24/20 History subcutaneous solution lidocaine 5 % topical patch 2 patch TOP DAILY PRN 09/02/20 09/24/20 History BD Ultra Fine Lancets 33 gauge #200 ea NS 09/20/20 09/20/20 Rx True Metrix Glucose Meter #1 ea NS 09/20/20 09/20/20 Rx True Metrix Glucose Test Strip #200 ea NS 09/20/20 09/20/20 Rx albuterol sulfate [Ventolin HFA] 1 inh INHALATION DIRECTED PRN 09/24/20 09/24/20 History baclofen 2.5 mg PO HS 09/24/20 09/24/20 History furosemide 40 mg PO PM 09/24/20 09/24/20 History furosemide [Lasix] 60 mg PO QAM 09/24/20 09/24/20 History Patient History Medical History (Updated 09/26/20 @ 21:55 by Melania French PA-C) Acute dehydration Acute osteomyelitis of toe of left foot Acute UTI (urinary tract infection) Anemia Anemia Aortic stenosis MILD-MOD per 08/2019 echo, but NO SIGNIFICANT STENOSIS noted on 10/12/19 echo. Atrial fibrillation On Eliquis CAD (coronary artery disease) s/p CABG x 2 in 2012. CAD has remained quiescent since then. Follows with Dr. Hernandez, who cleared the patient for lumbar surgery 07/2019. CHF (congestive heart failure) Appears euvolemic on exam at [facility] but unable to asses pedal edema due to b/l medical walking shoes for diabetic ulcers. EF 50-55% on most recent echo. Chronic kidney disease, stage [address] [facility] 12/[address] [facility]. Stool NEGATIVE 05/25/19. Diabetes mellitus, type 2 IDDM Diabetic foot ulcer associated with type 2 diabetes mellitus Following with wound clinic [facility]. DVT prophylaxis Dysphagia E. coli infect Encounter for immunization Encounter for monitoring diuretic therapy Fatty liver Gout Hypertension Hypoglycemia Indwelling Soto catheter present Lumbar spinal stenosis Severe at L4-5. 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 Lung cancer S/P RM lobectomy 2015, follows with Dr. Perkins. Myocardial Infarction 2012 Nausea & vomiting Neuroendocrine tumor Neurogenic bladder Neuropathic ulcer of toe of right foot Orthopnea Osteoarthritis Paraplegia Since 07/2019 decompression/fusion @ [facility] ([place]) Pressure ulcer of ischium, stage 2 Restless leg syndrome Sleep apnea CPAP Stroke-like symptoms Transient ischemic attack (TIA) 10/2019. Urinary tract infection Wheelchair dependent Surgical History Fusion of spine lumbar (07/2019) at [facility] --- uneventful surgery/anesthesia and hospitalization, but patient developed subsequent LE paraplegia. 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 - [place] - NO STENTS/ANGIOPLASTY -- > CABG History of cholecystectomy History of colonoscopy 11/2018 [facility] History of esophagogastroduodenoscopy (EGD) 11/2018 [facility] History of hysterectomy with oophorectomy KEARA with BSO History of lobectomy of lung RML History of ovarian cystectomy History of surgery Right VATS PROCEDURE History of tubal ligation Hx of CABG 2012 - - [place] - 2 VESSELS Family History Daughter Family history of diabetes mellitus Mother Heart disease Hypertension Myocardial infarction Father Hypertension Other Diabetes Denies family history of Ovarian cancer Prostate cancer Crohn's disease Breast cancer Colorectal cancer Ulcerative colitis Social History Smoking Status: Never smoker Tobacco Type: Cigarettes Cigarettes Per Day: 10; Number of Years Since Quit: 8; Second Hand Exposure: No; Hx Alcohol Use: No Hx Substance Use: No Preferred Language: Slovak Communication Ability: Effective Visual Impairment: No Limitations Hearing Ability: Normal 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 current occupational status: retired Feels Safe at Home: Yes Childhood Exposure to Second-Hand Smoke: No Dental Care, Regularly: No Physical Activity Frequency: Does not Exercise Seatbelt Use: always Sunscreen Use: No Assistive Devices: CPAP and Oxygen - at Night Review of Systems Review of Systems: As noted in HPI. All other ROS are reviewed and otherwise negative at this time. Physical Exam Physical Exam: Constitutional: Alert, oriented, in no acute distress HEENT: Head is atraumatic and normocephalic. EOMs intact. Sclera anicteric. Face is symmetric. No perioral cyanosis. Mucous membranes moist. Neck: Supple, no JVD Pulmonary: Normal respiratory effort, clear to auscultation bilaterally, decreased slightly at bases. Cardiac: Irregular rate and rhythm. Normal S1 and S2, no gallops, no rubs, no murmurs Extremities: 2+ radial pulses bilaterally. 2+ posterior tibialis pulses bilaterally. 2-3+ pitting edema to the knees. Dressing RLE. No cyanosis or clubbing. Abdomen: Normal bowel sounds, soft, non-tender, no abdominal mass palpated Skin: Normal skin color, turgor, and pigmentation, no rash, no skin lesions Neurological: Patient is awake, alert, and oriented. Pleasant and cooperative. Answers questions appropriately. Speech is clear. Results & Data ([facility]) Vital Signs (Past 12 Hours) Vital Signs Temp Pulse Resp BP BP Pulse Ox 09/26/20 15:03 97.7 F 59 L 18 91 09/26/20 14:27 85 99/45 L 09/26/20 11:19 98.2 F 65 18 118/61 90 09/26/20 06:53 97.5 F L 68 18 137/54 L 90 Coding Level of Care Code 05478 Initial Inpt Care Lvl 3 Diagnoses Acute on chronic diastolic (congestive) heart failure I50.33 Pulmonary hypertension I27.20 Tricuspid regurgitation I07.1 Wheelchair dependent Z99.3 Atrial fibrillation I48.91 CAD (coronary artery disease) I25.10 CKD (chronic kidney disease), stage III N18.3
[2020-09-26] MEDS: POTASSIUM CHLORIDE 10 MEQ TABCR PO SCH ×2 (17:28→21:17)
[2020-09-26] MEDS: DICLOFENAC SOD 1% GEL 100 GM TUBE EXT PRN (18:50)
[2020-09-26] MEDS: AMITRIPTYLINE HCL 50 MG TAB PO SCH (21:16)
[2020-09-26] MEDS: hydrALAZINE HCL 25 MG TAB PO SCH (21:17)
[2020-09-26] MEDS: BACLOFEN 10 MG TAB PO SCH (21:17)
[2020-09-26] MEDS ORDERED: traMADol HCL 50 MG TABLET PO STA (22:08)
--- NOTE | 2020-09-26 22:15 | Communication Note ---
Date of Service: September 26, 2020 Notified that pt was having right arm swelling and redness with 10/10 pain not relieved with tylenol. Ordered XR R arm as well as a venous doppler though pt has been on Eliquis (r/o hematoma?) Ordered tramadol for pain. 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
--- NOTE | 2020-09-27 00:26 | Ultrasound Report ---
US venous doppler UE RT HISTORY: 75 years-old Female r/o dvt (red, warm, swollen, tender) acute pain and swelling of the rig ht upper extremity COMPARISON: None TECHNIQUE: Multiple real-time sonographic images of the right upper extremity deep venous structures were obtained assessing grayscale appearance, color and spectral flow FINDINGS: Normal flow, compressibility, phasicity and augmentation of the right upper extremity deep venous str uctures. IMPRESSION: No sonographic evidence of deep venous thrombosis. ACT 112: Negative or not required by law. The above report was generated using voice recognition software. It may contain grammatical, syntax o r spelling errors. Electronically signed by: Jony Dupree M.D. 09/27/2020 12:24 AM
[2020-09-27 07:34] LABS: Hematocrit (blood only) 24.6 % (37-47); Hemoglobin 7.3 g/dL (12.0-16.0); Mean Corpuscular Hemoglobin 26.4 pg (25-34); Mean Corpuscular Hgb Conc 29.7 g/dL (32-36); Mean Corpuscular Volume 89.1 fL (80-100); Platelet Count 181 K/uL (130-400); RDW Coefficient of Variation 18.2 % (11.5-14.5); RDW Standard Deviation 59.3 fL (36.4-46.3); Red Blood Count 2.76 M/uL (4.2-5.4); White Blood Count 6.23 K/uL (4.8-10.8)
--- NOTE | 2020-09-27 07:50 | XRay Report ---
RIGHT HUMERUS 2 VIEWS HISTORY: Right arm pain, r/o fracture COMPARISON: None. FINDINGS: There is no fracture or dislocation. Soft tissues are unremarkable. No radiopaque foreign b odies. IMPRESSION: No fractures within the right humerus. ACT 112: Negative or not required by law. Electronically signed by: Duc Oconnell M.D. 09/27/2020 7:49 AM
[2020-09-27 08:06] LABS: BUN Creatinine Ratio 30.1 (10-20); Calcium 8.6 mg/dl (8.5-10.1); Creatinine Clr Calc Pharmacy 40.6 ml/min; Est GFR (African American) 39.5; Magnesium 2.3 mg/dl (1.8-2.4); Potassium 3.6 mmol/L (3.5-5.1)
[2020-09-27] MEDS: INSULIN ASPART 100 UNITS/ML 3 ML PEN SC SCH ×4 (08:40→20:52)
[2020-09-27] MEDS: hydrALAZINE HCL 25 MG TAB PO SCH ×3 (08:41→20:12)
[2020-09-27] MEDS: INSULIN DETEMIR FLEXPEN/FLEX TOUCH 100 UNITS/ML 3ML SQ SCH ×2 (08:41→20:51)
[2020-09-27] MEDS: FUROSEMIDE 40 MG in SYRINGE 0 ML IV SCH (08:41)
[2020-09-27] MEDS: CHOLECALCIFEROL 1,000 UNITS 25 MCG TAB PO SCH (08:42)
[2020-09-27] MEDS: allopurinoL 100 MG TAB PO SCH (08:42)
[2020-09-27] MEDS: MAGNESIUM CHLORIDE 64MG DELAYED REL TAB PO SCH ×3 (08:42→20:11)
[2020-09-27] MEDS: ROSUVASTATIN CALCIUM 20 MG TAB PO SCH (08:42)
[2020-09-27] MEDS: ASPIRIN 81 MG ECTAB PO SCH (08:42)
[2020-09-27] MEDS: METOPROLOL SUCC 25MG EXT REL TAB PO SCH (08:42)
[2020-09-27] MEDS: APIXABAN 5 MG TABLET PO SCH ×2 (08:43→20:10)
--- NOTE | 2020-09-27 12:50 | Hospitalist Progress Note ---
Date of Service September 27, 2020 Assessment & Plan (1) Volume overload: Echo on 09/24 showed EF 50-55% & mild concentric LVH. 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 - Continue Lasix 40 mg IV BID (but skip this afternoon) - Monitor I&Os, weights - Improving today, but clearly still with large volume overload. Kidneys stable with present diuresis. Net negative 4.5L; weight down 5 kg. (2) Anemia: Patient has a longstanding history of anemia, likely anemia of chronic disease. However, she is considerably lower than priors. Iron studies indicate mix of iron deficiency and chronic disease. - Continue oral iron - Will give 3 rounds of IV iron while in the hospital. - If it falls further, consider GI consult. Presently no indication of acute GI bleed, so will continue anticoagulation. (3) Type 2 diabetes mellitus with diabetic neuropathy, with long-term current use of insulin: A1c was 6.9% in 2019, but nothing in our system more recently. - Glycemic pharmacist consulted - Continue long-acting/sliding scale insulins. -> Sugars 100-150 in last 24 hours. (4) Hypertension: BP presently 125/70. - Continue metoprolol - Lowered hydralazine to 25 mg PO TID (from 50 mg) because of low BPs on 09/26 (5) CAD (coronary artery disease): Previous history of CABG. - Continue beta-jody, ASA, statin, hydralazine (6) CKD (chronic kidney disease), stage III: Baseline Cr ~1.1-1.3, eGFR ~45. - Cr presently at baseline or just slightly above. - Monitor with diuresis -> Stable. (7) Atrial fibrillation: HR in the 80s at present. In chronic afib. - Rate controlled with metoprolol XL. - Anticoagulated with apixaban 5 twice daily (8) Venous stasis ulcer of right lower leg with edema of right lower leg: Patient is been seeing wound care for a heel ulceration present on admission. - Consult wound care nursing (9) Gout: No active flare at present. - Continue allopurinol (10) DVT prophylaxis: Apixaban Admission and Anticipated Discharge Date Admission Date: September 24, 2020 Subjective No issues today. The right arm felt "heavy" last night, but otherwise no shortness of breath. Edema still present. Reports no fevers/chills, chest pain, shortness of breath, abdominal pain, nausea, or vomiting. Physical Exam Constitutional: WD/WN, vitals as above + obese Eyes: EOM intact bilaterally; no conjunctival abnormality ENMT: external ear and nose normal, oropharynx normal Neck: trachea midline, no thyromegaly normal visual inspection Respiratory: no respiratory distress Auscultation: + crackles Cardiovascular: Rate/Rhythm: regular rate and regular rhythm Heart Sounds: normal S1 and normal S2 Extremities: + edema Gastrointestinal (Abdomen): Inspection/Auscultation: abdomen normal to inspection; abdomen not distended Musculoskeletal: no cyanosis or clubbing, extremities motor strength 5/5 Skin: + induration (On right triceps area) Neurologic: moves all extremities and awake Psychiatric: Orientation: alert, oriented to person and cooperative Results & Data Results & Data ([facility]) Vital Signs (Past 12 Hours) Vital Signs Temp Pulse Resp BP BP Pulse Ox 09/27/20 11:19 36.7 C 61 18 123/67 98 09/27/20 07:49 36.5 C 68 18 118/74 95 09/27/20 03:04 36.9 C 72 17 121/66 92 PG Care Time/CCT Total # of Minutes Spent Total Time Spent with Patient: Total time spent is greater than 50% in coordination of care (as documented) at patient's floor/unit and/or counseling patient: Coding Level of Care Code 19272 Subseq Hosp Care Lvl 3 Diagnoses Volume overload E87.79 Hypervolemia type: other Anemia D64.9 Type 2 diabetes mellitus with diabetic neuropathy, with long-term current use of insulin E11.40; Z79.4 Hypertension I10 CAD (coronary artery disease) I25.10 CKD (chronic kidney disease), stage III N18.3 Atrial fibrillation I48.91 Venous stasis ulcer of right lower leg with edema of right lower leg I83.019; I83.891; L97.919; R60.9 Gout M10.9 DVT prophylaxis Z29.9 (1) Volume overload Hypervolemia type: other Qualified Code(s): E87.79 - Other fluid overload
[2020-09-27] MEDS: IRON SUCROSE 200 MG in 0.9 % SODIUM CHLORIDE 100 ML IV SCH (13:07)
--- NOTE | 2020-09-27 13:44 | Heart Failure Progress Note ---
Date of Service September 27, 2020 Assessment & Plan (1) Acute on chronic diastolic (congestive) heart failure: (2) Pulmonary hypertension: (3) Tricuspid regurgitation: (4) Wheelchair dependent: (5) Atrial fibrillation: (6) CAD (coronary artery disease): (7) CKD (chronic kidney disease), stage III: Patient remains hypervolemic on exam. Her symptoms are improving but she continues to have significant lower extremity edema. Continue wound care for ulceration. She is non ambulatory so exertional symptoms are difficult to assess. Symptoms and echocardiogram are consistent with RV systolic failure secondary to noncompliance with her CPAP. She is responding well to Lasix 40 mg IV BID. Would recommend transition to PO diuretics 24 hours prior to discharge. Weight is trending down each day. Continue to monitor kidney function and electrolytes. Continue to monitor strict I&Os. She is unable to do standing weights. Continue low sodium diet, less than 2,000 mg daily. Encourage CPAP compliance. Discussed the heart failure program and she is agreeable to participation. Will plan outpatient follow up within 7 days of discharge. Disposition: Will continue to follow during hospitalization. Anticipate close outpatient follow up with the heart failure program. Admission and Anticipated Discharge Date Admission Date: September 24, 2020 Subjective Patient reports she's feeling improved today. She had an episode of arm pain last night but that has since resolved. Xray and Doppler negative. Her breathing is stable. Her lower extremity edema is slightly improved. She reports she slept well last night with her head slightly elevated. She's net negative 4.5 L so far this admission. Weight is trending down but is bed scale. She denies chest pain, cough, or wheezing. Physical Exam Physical Exam: Constitutional: Alert, oriented, in no acute distress HEENT: Head is atraumatic and normocephalic. EOMs intact. Sclera anicteric. Face is symmetric. No perioral cyanosis. Mucous membranes moist. Neck: Supple, no JVD Pulmonary: Normal respiratory effort, clear to auscultation bilaterally, decreased slightly at bases. Cardiac: Irregular rate and rhythm. Normal S1 and S2, no gallops, no rubs, no murmurs Extremities: 2+ radial pulses bilaterally. 2+ posterior tibialis pulses bilaterally. 2+ pitting edema to the knees. Dressing RLE. No cyanosis or clubbing. Abdomen: Normal bowel sounds, soft, non-tender, no abdominal mass palpated Skin: Normal skin color, turgor, and pigmentation, no rash, no skin lesions Neurological: Patient is awake, alert, and oriented. Pleasant and cooperative. Answers questions appropriately. Speech is clear. Results & Data ([facility]) Vital Signs (Past 12 Hours) Vital Signs Temp Pulse Resp BP BP Pulse Ox 09/27/20 11:19 98.1 F 61 18 123/67 98 09/27/20 07:49 97.7 F 68 18 118/74 95 09/27/20 03:04 98.4 F 72 17 121/66 92 PG Care Time/CCT Total # of Minutes Spent Total Time Spent with Patient: Total time spent is greater than 50% in coordination of care (as documented) at patient's floor/unit and/or counseling patient: Coding Level of Care Code 14594 Subseq Hosp Care Lvl 3 Diagnoses Acute on chronic diastolic (congestive) heart failure I50.33 Pulmonary hypertension I27.20 Tricuspid regurgitation I07.1 Wheelchair dependent Z99.3 Atrial fibrillation I48.91 CAD (coronary artery disease) I25.10 CKD (chronic kidney disease), stage III N18.3
--- NOTE | 2020-09-27 15:02 | Ultrasound Report ---
RIGHT UPPER ARM SOFT TISSUE ULTRASOUND CLINICAL HISTORY: Palpable lumps COMPARISON STUDY: Ultrasound study dated 05/27/2019 FINDINGS: The patient reports palpable lumps in the region of the triceps. Ultrasonographic evaluatio n reveals multiple small hypoechoic nodules within the subcutaneous fat, possibly representing areas of fat necrosis. In addition there is a 8 x 7 x 2 hypoechoic cutaneous lesion. IMPRESSION: 1. 8 x 7 x 2 mm superficial lesion, likely of dermal adnexal origin 2. Multiple small hypoechoic nodules in the subcutaneous fat, possibly representing areas of fat necr osis. ACT 112: Negative or not required by law. Electronically signed by: Franco Lopez M.D. 09/27/2020 3:00 PM
[2020-09-27] MEDS: ACETAMINOPHEN 500 MG TAB PO PRN ×2 (15:43→23:30)
[2020-09-27] MEDS: AMITRIPTYLINE HCL 50 MG TAB PO SCH (20:10)
[2020-09-27] MEDS: BACLOFEN 10 MG TAB PO SCH (20:11)
[2020-09-28 07:36] LABS: Hematocrit (blood only) 23.9 % (37-47); Hemoglobin 7.2 g/dL (12.0-16.0); Mean Corpuscular Hgb Conc 30.1 g/dL (32-36); Mean Corpuscular Volume 89.5 fL (80-100); Mean Platelet Volume 8.3 fL (7.4-10.4); Platelet Count 191 K/uL (130-400); RDW Coefficient of Variation 18.3 % (11.5-14.5); RDW Standard Deviation 60.3 fL (36.4-46.3); Red Blood Count 2.67 M/uL (4.2-5.4); White Blood Count 7.37 K/uL (4.8-10.8)
[2020-09-28 08:09] LABS: BUN Creatinine Ratio 34.2 (10-20); Calcium 8.5 mg/dl (8.5-10.1); Creatinine Clr Calc Pharmacy 43.7 ml/min; Est GFR (African American) 42.2; Est GFR (Non-African American) 36.4; Magnesium 2.4 mg/dl (1.8-2.4); Potassium 3.5 mmol/L (3.5-5.1)
[2020-09-28] MEDS: hydrALAZINE HCL 25 MG TAB PO SCH ×3 (08:20→20:22)
[2020-09-28] MEDS: METOPROLOL SUCC 25MG EXT REL TAB PO SCH (08:20)
[2020-09-28] MEDS: ASPIRIN 81 MG ECTAB PO SCH (08:21)
[2020-09-28] MEDS: ROSUVASTATIN CALCIUM 20 MG TAB PO SCH (08:21)
[2020-09-28] MEDS: allopurinoL 100 MG TAB PO SCH (08:21)
[2020-09-28] MEDS: MAGNESIUM CHLORIDE 64MG DELAYED REL TAB PO SCH ×3 (08:22→20:22)
[2020-09-28] MEDS: APIXABAN 5 MG TABLET PO SCH (08:22)
[2020-09-28] MEDS: CHOLECALCIFEROL 1,000 UNITS 25 MCG TAB PO SCH (08:23)
[2020-09-28] MEDS: INSULIN DETEMIR FLEXPEN/FLEX TOUCH 100 UNITS/ML 3ML SQ SCH ×2 (08:24→20:24)
[2020-09-28] MEDS: INSULIN ASPART 100 UNITS/ML 3 ML PEN SC SCH ×4 (08:25→20:23)
[2020-09-28] MEDS: FUROSEMIDE 40 MG in SYRINGE 0 ML IV SCH ×2 (08:27→17:33)
[2020-09-28] MEDS: PANTOprazole 40 MG in SYRINGE 0 ML IV SCH ×2 (08:48→20:22)
[2020-09-28] MEDS: ACETAMINOPHEN 500 MG TAB PO PRN (10:17)
--- NOTE | 2020-09-28 11:19 | Gastrointestinal Consultation ---
Date of Consultation September 28, 2020 Assessment & Plan (1) Anemia: Hgb 7.2/Hct 23.9 today. Patient with multiple comorbidities and is considered high risk for endoscopy. History of iron deficiency anemia. Iron infusions ordered. On chronic anticoagulation (Eliquis) BID due to atrial fibr illation. Appears to be currently on hold. Continue Protonix BID - currently receiving IV. Obtain stool for occult blood testing - nursing aware. Please refer to supervising physician addendum for further recommendations. Supervising Physician Co-Signing Physician Notes I have seen and examined the patient. I agree with note above by SHANIQUA Bourgeois except as noted below. HPI Pt with Fe def anemia. Black stools on Fe. Hemoccult ordered but no stools today. Has large bruise on right foream. PE Abdomen pos bs, soft, no guarding nor rebound A/P Fe def anemia--hemoccult pending. Cover PUD with PPI. Pt high risk for endoscopy given CHF so would favor conservative therapy unless has life threatening bleed. History of Present Illness Attending Physician: Tai Kam MD History of Present Illness The patient is a pleasant 75-year-old female with past medical history to include pulmonary hypertension, tricuspid regurgitation, acute on chronic diastolic heart failure, neuroendocrine tumor, iron deficiency anemia, type 2 diabetes mellitus with kidney complication, coronary artery disease, sleep apnea, history of lung cancer, hyperlipidemia, obesity who presented to the emergency department on 01/2020 and again 09/24/2020 due to shortness of breath, volume overload, leg swelling. Patient is on chronic anticoagulation due to chronic atrial fibrillation. Patient was subsequently admitted for volume overload. GI consult was placed due to anemia. The patient reports that she has noted no blood in her stools. She states that she does have black stools that she takes an iron supplement daily. Her last colonoscopy was performed 11/14/[address] Goodman due to heme positive stools. She denies any abdominal pain or vomiting or hematemesis. She reports occasional nausea. She has had increased weakness. Solid food diet this morning tolerated without difficulty. She does have a bowel movement daily which is soft formed and easy to pass. Prior surgical history is include cholecystectomy and hysterectomy. Patient is a former smoker. She reports she quit smoking approximately 10 to 12 years ago. She denies any use of alcohol. Denies use of recreational drugs including marijuana. Reports that she retired from [employer]. She is and lives with her who serves as her primary caregiver. She does have help in the morning that comes in 5 days a week to help with ADLs Allergies Allergy/AdvReac Type Severity Reaction Status Date / Time metoclopramide [From Reglan] Allergy Mild "went Verified 09/24/20 10:48 crazy" NSAIDS (Non-Steroidal Allergy Unknown UNK? Verified 09/24/20 10:48 Anti-Inflamma DENIES SOB. capsaicin AdvReac Severe SHORTNESS Verified 09/24/20 10:48 OF BREATH diclofenac AdvReac Severe SHORTNESS Verified 09/24/20 10:48 OF BREATH Diclopak AdvReac Severe SHORTNESS Verified 07/24/18 10:57 OF BREATH Home Medications Home Medications Medication Instructions Recorded Confirmed Type nitroglycerin 0.4 mg sublingual 0.4 mg SL UD PRN tab 07/30/18 09/24/20 History tablet magnesium chloride 64 mg 64 mg PO TID tab 06/02/19 09/24/20 History (magnesium chloride) tablet,delayed release insulin syringe-needle U-100 1 mL #300 ea 07/15/19 09/06/20 Rx 30 gauge x 5/16" amitriptyline 50 mg tablet 50 mg PO HS #90 tab 10/16/19 09/24/20 Rx cholecalciferol (vitamin D3) 125 mcg PO QAM 04/16/20 09/24/20 History acetaminophen 325 mg capsule 650 mg PO BID PRN cap MDD 10 tabs 04/22/20 09/24/20 History cadexomer iodine 0.9 % topical gel 40 g TOP DAILY 30 Days #40 gm 05/06/20 09/24/20 Rx hydralazine 50 mg tablet 50 mg PO TID #270 tab 05/19/20 09/24/20 Rx metoprolol succinate 25 mg 25 mg PO DAILY #90 tab 05/19/20 09/24/20 Rx tablet,extended release 24 hr allopurinol 100 mg tablet 100 mg PO QAM #90 tab 06/13/20 09/24/20 Rx apixaban 5 mg tablet 5 mg PO BID #180 tab 06/13/20 09/24/20 Rx ferrous sulfate 325 mg (65 mg 325 mg PO BID #180 tab 07/13/20 09/24/20 Rx iron) tablet ropinirole 5 mg tablet 5 mg PO QID #270 tab 07/20/20 09/24/20 Rx rosuvastatin 40 mg tablet 40 mg PO DAILY #90 tab 07/20/20 09/24/20 Rx insulin detemir U-100 100 unit/mL 22 unit SUBCUT BID ml 08/05/20 09/24/20 History (3 mL) subcutaneous pen potassium chloride 20 mEq 20 meq PO BID #60 tab 08/17/20 09/24/20 Rx tablet,extended release insulin aspart U-100 100 unit/mL 5 units SQ QID ml 09/02/20 09/24/20 History subcutaneous solution lidocaine 5 % topical patch 2 patch TOP DAILY PRN 09/02/20 09/24/20 History BD Ultra Fine Lancets 33 gauge #200 ea NS 09/20/20 09/20/20 Rx True Metrix Glucose Meter #1 ea NS 09/20/20 09/20/20 Rx True Metrix Glucose Test Strip #200 ea NS 09/20/20 09/20/20 Rx albuterol sulfate [Ventolin HFA] 1 inh INHALATION DIRECTED PRN 09/24/20 09/24/20 History baclofen 2.5 mg PO HS 09/24/20 09/24/20 History furosemide 40 mg PO PM 09/24/20 09/24/20 History furosemide [Lasix] 60 mg PO QAM 09/24/20 09/24/20 History Patient History Medical History (Updated 09/26/20 @ 21:55 by Melania French PA-C) Acute dehydration Acute osteomyelitis of toe of left foot Acute UTI (urinary tract infection) Anemia Anemia Aortic stenosis MILD-MOD per 08/2019 echo, but NO SIGNIFICANT STENOSIS noted on 10/12/19 echo. Atrial fibrillation On Eliquis CAD (coronary artery disease) s/p CABG x 2 in 2012. CAD has remained quiescent since then. Follows with Dr. Hernandez, who cleared the patient for lumbar surgery 07/2019. CHF (congestive heart failure) Appears euvolemic on exam at [facility] but unable to asses pedal edema due to b/l medical walking shoes for diabetic ulcers. EF 50-55% on most recent echo. Chronic kidney disease, stage 3 Clostridium difficile infection DX [facility] 12/2018 @ [facility]. Stool NEGATIVE 05/25/19. Diabetes mellitus, type 2 IDDM Diabetic foot ulcer associated with type 2 diabetes mellitus Following with wound clinic [facility]. DVT prophylaxis Dysphagia E. coli infect Encounter for immunization Encounter for monitoring diuretic therapy Fatty liver Gout Hypertension Hypoglycemia Indwelling Soto catheter present Lumbar spinal stenosis Severe at L4-5. 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 Lung cancer S/P RM lobectomy 2015, follows with Dr. Perkins. Myocardial Infarction 2013 Nausea & vomiting Neuroendocrine tumor Neurogenic bladder Neuropathic ulcer of toe of right foot Orthopnea Osteoarthritis Paraplegia Since 07/2019 decompression/fusion @ [facility] ([place]) Pressure ulcer of ischium, stage 2 Restless leg syndrome Sleep apnea CPAP Stroke-like symptoms Transient ischemic attack (TIA) 10/2019. Urinary tract infection Wheelchair dependent Surgical History Fusion of spine lumbar (07/2019) at [facility] --- uneventful surgery/anesthesia and hospitalization, but patient developed subsequent LE paraplegia. 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 History of appendectomy History of bilateral knee replacement History of bronchoscopy History of cardiac cath 2012 - [facility] - [place] - NO STENTS/ANGIOPLASTY -- > CABG History of cholecystectomy History of colonoscopy 11/2018 [facility] History of esophagogastroduodenoscopy (EGD) 11/2018 [facility] History of hysterectomy with oophorectomy KEARA with BSO History of lobectomy of lung RML History of ovarian cystectomy History of surgery Right VATS PROCEDURE History of tubal ligation Hx of CABG 2012 - - [place] - [place] - 2 VESSELS Family History Daughter Family history of diabetes mellitus Mother Heart disease Hypertension Myocardial infarction Father Hypertension Other Diabetes Denies family history of Ovarian cancer Prostate cancer Crohn's disease Breast cancer Colorectal cancer Ulcerative colitis Social History Smoking Status: Never smoker Tobacco Type: Cigarettes Cigarettes Per Day: 10; Number of Years Since Quit: 8; Second Hand Exposure: No; Hx Alcohol Use: No Hx Substance Use: No Preferred Language: Libyan Communication Ability: Effective Visual Impairment: No Limitations Hearing Ability: Normal Community Affairs Manager Required: No Beliefs That Will Affect Care: None marital status: Current Living Situation: Spouse Current Living Situation Comment: Live with . current occupational status: retired Feels Safe at Home: Yes Childhood Exposure to Second-Hand Smoke: No Dental Care, Regularly: No Physical Activity Frequency: Does not Exercise Seatbelt Use: always Sunscreen Use: No Assistive Devices: Wheelchair Review of Systems Review of Systems: All systems reviewed & are unremarkable except as noted in Subjective Physical Exam Constitutional: WD/WN, vitals as above Eyes: no eyelid abnormality wears corrective lenses ENMT: Nose: no external nose abnormality Neck: normal visual inspection and trachea midline Respiratory: normal respiratory effort; no respiratory distress and no labored breathing Cardiovascular: Rate/Rhythm: + irregularly irregular Extremities: + edema Gastrointestinal (Abdomen): Inspection/Auscultation: abdomen normal to inspection and normal bowel sounds Percussion/Palpation: abdomen soft; abdomen nontender, no guarding and abdomen not rigid Musculoskeletal: Extremities: no cyanosis and no clubbing Skin: + ecchymosis (Anterior right upper arm ) Neurologic: PERRL, EOMI, accommodation nl, no face palsy, no dysarthria Psychiatric: A+Ox3, euthymic affect Results & Data ([facility]) Vital Signs (Past 12 Hours) Vital Signs Temp Pulse Pulse Resp BP BP Pulse Ox 09/28/20 11:12 36.9 C 71 20 132/77 93 09/28/20 10:34 63 09/28/20 07:34 36.8 C 62 18 113/53 L 93 09/28/20 05:20 66 09/28/20 04:00 36.7 C 73 20 127/81 92 Laboratory Results - last 24 hr 09/27/20 09/27/20 09/27/20 11:51 16:37 20:42 WBC RBC Hgb Hct MCV MCH MCHC RDW Std Deviation RDW Coeff of Lelo Plt Count MPV Sodium Potassium Chloride Carbon Dioxide Anion Gap BUN Creatinine Est Cr Clr Drug Dosing Est GFR ( Amer) Est GFR (Non-Af Amer) BUN/Creatinine Ratio Glucose POC Glucose 156 H 132 H 141 H Calcium Magnesium 09/28/20 09/28/20 09/28/20 07:08 07:08 07:30 WBC 7.37 RBC 2.67 L Hgb 7.2 L Hct 23.9 L MCV 89.5 MCH 27.0 MCHC 30.1 L RDW Std Deviation 60.3 H RDW Coeff of Lelo 18.3 H Plt Count 191 MPV 8.3 Sodium 137 Potassium 3.5 Chloride 103 Carbon Dioxide 28 Anion Gap 6.0 BUN 48 H Creatinine 1.40 H Est Cr Clr Drug Dosing 43.7 Est GFR ( Amer) 42.2 Est GFR (Non-Af Amer) 36.4 BUN/Creatinine Ratio 34.2 H Glucose 93 POC Glucose 100 H Calcium 8.5 Magnesium 2.4
[2020-09-28] MEDS: LORazepam 0.5 MG TAB PO PRN (11:51)
--- NOTE | 2020-09-28 13:58 | Hospitalist Progress Note ---
Date of Service September 28, 2020 Assessment & Plan (1) Anemia: Patient has a longstanding history of anemia, likely anemia of chronic disease. However, she is considerably lower than priors. Iron studies indicate mix of iron deficiency and chronic disease. - Continue oral iron - Gave 3 rounds of IV iron while in the hospital (Last dose on 09/28). - Hgb continues to fall. Down to 7.2 today. Despite no bleeding seen; stopped aspirin and apixaban. PPI IV BID. GI consulted. (2) Volume overload: Echo on 09/24 showed EF 50-55% & mild concentric LVH. 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 - Continue Lasix 40 mg IV BID (but skip this afternoon) - Monitor I&Os, weights - Improving today. Kidneys stable with present diuresis. Net negative 4.5L. CHF provider following. Likely switch to oral Lasix tomorrow to find stable home dose. (3) Type 2 diabetes mellitus with diabetic neuropathy, with long-term current use of insulin: A1c was 6.9% in 2019, but nothing in our system more recently. - Glycemic pharmacist consulted - Continue long-acting/sliding scale insulins. -> Sugars 100-150 in last 24 hours. (4) Hypertension: BP presently 130/80. - Continue metoprolol - Lowered hydralazine to 25 mg PO TID (from 50 mg) because of low BPs on 09/26 (5) CAD (coronary artery disease): Previous history of CABG. - Continue beta-jody, statin - Hold ASA on 09/28 for worsening anemia (6) CKD (chronic kidney disease), stage III: Baseline Cr ~1.1-1.3, eGFR ~45. - Cr presently at baseline or just slightly above. - Monitor with diuresis -> Stable at 1.4 today. (7) Atrial fibrillation: HR in the 80s at present. In chronic afib. - Rate controlled with metoprolol XL. - Anticoagulated with apixaban; held on 09/28 for anemia (8) Venous stasis ulcer of right lower leg with edema of right lower leg: Patient is been seeing wound care for a heel ulceration present on admission. - Consult wound care nursing (9) Gout: No active flare at present. - Continue allopurinol (10) DVT prophylaxis: Holding apixaban - SCDs Admission and Anticipated Discharge Date Admission Date: September 24, 2020 Subjective Stable today. The right arm is feeling better. The legs are still restless. Reports no fevers/chills, chest pain, shortness of breath, abdominal pain, nausea, or vomiting. Physical Exam Constitutional: WD/WN, vitals as above + obese Eyes: EOM intact bilaterally; no conjunctival abnormality ENMT: external ear and nose normal, oropharynx normal Neck: trachea midline, no thyromegaly normal visual inspection Respiratory: no respiratory distress Auscultation: + crackles Cardiovascular: Rate/Rhythm: regular rate and regular rhythm Heart Sounds: normal S1 and normal S2 Extremities: + edema (Improved) Gastrointestinal (Abdomen): Inspection/Auscultation: abdomen normal to inspection; abdomen not distended Musculoskeletal: no cyanosis or clubbing, extremities motor strength 5/5 Skin: no rashes, warm and dry + induration (On right triceps area) Neurologic: moves all extremities and awake Psychiatric: Orientation: alert, oriented to person and cooperative Results & Data Results & Data ([facility]) Vital Signs (Past 12 Hours) Vital Signs Temp Pulse Pulse Resp BP BP Pulse Ox 09/28/20 11:12 36.9 C 71 20 132/77 93 09/28/20 10:34 63 09/28/20 07:34 36.8 C 62 18 113/53 L 93 09/28/20 05:20 66 09/28/20 04:00 36.7 C 73 20 127/81 92 PG Care Time/CCT Total # of Minutes Spent Total Time Spent with Patient: Total time spent is greater than 50% in coordination of care (as documented) at patient's floor/unit and/or counseling patient: Coding Level of Care Code 99792 Subseq Hosp Care Lvl 3 Diagnoses Anemia D64.9 Volume overload E87.79 Hypervolemia type: other Type 2 diabetes mellitus with diabetic neuropathy, with long-term current use of insulin E11.40; Z79.4 Hypertension I10 CAD (coronary artery disease) I25.10 CKD (chronic kidney disease), stage III N18.3 Atrial fibrillation I48.91 Venous stasis ulcer of right lower leg with edema of right lower leg I83.019; I83.891; L97.919; R60.9 Gout M10.9 DVT prophylaxis Z29.9 (1) Volume overload Hypervolemia type: other Qualified Code(s): E87.79 - Other fluid overload
[2020-09-28] MEDS: IRON SUCROSE 200 MG in 0.9 % SODIUM CHLORIDE 100 ML IV SCH (14:24)
[2020-09-28] MEDS: BACLOFEN 10 MG TAB PO SCH (20:19)
[2020-09-28] MEDS: AMITRIPTYLINE HCL 50 MG TAB PO SCH (20:21)
[2020-09-29 06:03] LABS: Basophils # (auto) 0.02 K/uL (0-0.2); Basophils % (auto) 0.3 %; Eosinophils # (auto) 0.17 K/uL (0-0.5); Eosinophils % (auto) 2.3 %; Hematocrit (blood only) 24.2 % (37-47); Hemoglobin 7.2 g/dL (12.0-16.0); Immature Granulocytes # (auto) 0.02 K/uL (0.00-0.02); Immature Granulocytes % (auto) 0.3 %; Lymphocytes % (auto) 12.2 %; Mean Corpuscular Hemoglobin 26.8 pg (25-34); Mean Corpuscular Hgb Conc 29.8 g/dL (32-36); Mean Platelet Volume 8.4 fL (7.4-10.4); Monocytes # (auto) 0.57 K/uL (0.11-0.59); Monocytes % (auto) 7.7 %; Neutrophils # (auto) 5.72 K/uL (1.4-6.5); Neutrophils % (auto) 77.2 %; Platelet Count 195 K/uL (130-400); RDW Coefficient of Variation 18.8 % (11.5-14.5); RDW Standard Deviation 61.2 fL (36.4-46.3); Red Blood Count 2.69 M/uL (4.2-5.4)
[2020-09-29 06:21] LABS: Hypochromasia Present; Ovalocytes 1+
[2020-09-29] MEDS: LORazepam 0.5 MG TAB PO PRN (06:36)
[2020-09-29 06:50] LABS: Albumin Level 2.8 gm/dl (3.4-5.0); BUN Creatinine Ratio 33.3 (10-20); Calcium 8.8 mg/dl (8.5-10.1); Creatinine Clr Calc Pharmacy 41.5 ml/min; Est GFR (African American) 40.1; Est GFR (Non-African American) 34.6; Magnesium 2.5 mg/dl (1.8-2.4); Potassium 3.4 mmol/L (3.5-5.1)
[2020-09-29 06:53] LABS: Albumin Globulin Ratio 0.8 (0.9-2); Bilirubin,Total 0.9 mg/dl (0.2-1); Globulin 3.7 gm/dl (2.5-4.0); Total Protein 6.5 gm/dl (6.4-8.2)
[2020-09-29] MEDS: CHOLECALCIFEROL 1,000 UNITS 25 MCG TAB PO SCH (08:29)
[2020-09-29] MEDS: METOPROLOL SUCC 25MG EXT REL TAB PO SCH (08:29)
[2020-09-29] MEDS: INSULIN DETEMIR FLEXPEN/FLEX TOUCH 100 UNITS/ML 3ML SQ SCH ×2 (08:29→20:44)
[2020-09-29] MEDS: allopurinoL 100 MG TAB PO SCH (08:29)
[2020-09-29] MEDS: PANTOprazole 40 MG in SYRINGE 0 ML IV SCH ×2 (08:29→20:44)
[2020-09-29] MEDS: hydrALAZINE HCL 25 MG TAB PO SCH ×3 (08:29→20:43)
[2020-09-29] MEDS: FUROSEMIDE 40 MG in SYRINGE 0 ML IV SCH ×2 (08:29→16:38)
[2020-09-29] MEDS: MAGNESIUM CHLORIDE 64MG DELAYED REL TAB PO SCH ×3 (08:29→20:41)
[2020-09-29] MEDS: ROSUVASTATIN CALCIUM 20 MG TAB PO SCH (08:29)
[2020-09-29] MEDS: INSULIN ASPART 100 UNITS/ML 3 ML PEN SC SCH ×4 (08:30→20:44)
--- NOTE | 2020-09-29 09:26 | Gastroenterology Progress Note ---
Date of Service September 29, 2020 Assessment & Plan (1) Anemia: Hgb 7.2/Hct 24.2 today. Patient with multiple comorbidities and is considered high risk for endoscopy. History of iron deficiency anemia. Iron infusions ordered. On chronic anticoagulation (Eliquis) BID due to atrial fibrillation. Appears to be currently on hold. Continue Protonix BID - currently receiving IV. Obtain stool for occult blood testing - nursing aware. Please refer to supervising physician addendum for further recommendations. Admission and Anticipated Discharge Date Admission Date: September 24, 2020 Subjective The patient is alert and oriented, eating breakfast at time of evaluation. She is c/o increased bilateral lower extremity pain. Denies abdominal pain, nausea, or vomiting. Bowel movement yesterday without evidence of blood. No heme stool testing completed. Review of Systems Review of Systems: All systems reviewed & are unremarkable except as noted in Subjective Physical Exam Constitutional: WD/WN, vitals as above Eyes: no eyelid abnormality ENMT: Nose: no external nose abnormality Neck: normal visual inspection and trachea midline Respiratory: normal respiratory effort; no respiratory distress and no labored breathing Cardiovascular: Rate/Rhythm: + irregularly irregular Extremities: + edema Gastrointestinal (Abdomen): Inspection/Auscultation: abdomen normal to inspection and normal bowel sounds Percussion/Palpation: abdomen soft; abdomen nontender, no guarding and abdomen not rigid Musculoskeletal: Extremities: no cyanosis and no clubbing Skin: + ecchymosis (Anterior right upper arm ) Neurologic: PERRL, EOMI, accommodation nl, no face palsy, no dysarthria Psychiatric: A+Ox3, euthymic affect Results & Data ([facility]) Vital Signs (Past 12 Hours) Vital Signs Temp Pulse Pulse Resp BP BP Pulse Ox 09/29/20 07:32 36.6 C 69 18 115/60 93 09/29/20 07:07 66 09/29/20 03:40 36.9 C 86 19 119/61 90 09/28/20 23:00 36.9 C 64 18 114/55 L 92 09/28/20 22:19 55 L Laboratory Results - last 24 hr 09/28/20 09/28/20 09/28/20 11:30 17:03 20:00 WBC RBC Hgb Hct MCV MCH MCHC RDW Std Deviation RDW Coeff of Lelo Plt Count MPV Immature Gran % (Auto) Neut % (Auto) Lymph % (Auto) C[place]shaw % (Auto) Eos % (Auto) Baso % (Auto) Neut # (Auto) Lymph # (Auto) [place] # (Auto) Eos # (Auto) Baso # (Auto) Immature Gran # (Auto) Hypochromasia Ovalocytes Sodium Potassium Chloride Carbon Dioxide Anion Gap BUN Creatinine Est Cr Clr Drug Dosing Est GFR ( Amer) Est GFR (Non-Af Amer) BUN/Creatinine Ratio Glucose POC Glucose 146 H 95 170 H Calcium Magnesium Total Bilirubin AST ALT Alkaline Phosphatase Total Protein Albumin Globulin Albumin/Globulin Ratio 09/29/20 09/29/20 09/29/20 05:36 05:36 07:45 WBC 7.40 RBC 2.69 L Hgb 7.2 L Hct 24.2 L MCV 90.0 MCH 26.8 MCHC 29.8 L RDW Std Deviation 61.2 H RDW Coeff of Lelo 18.8 H Plt Count 195 MPV 8.4 Immature Gran % (Auto) 0.3 Neut % (Auto) 77.2 Lymph % (Auto) 12.2 Crenshaw % (Auto) 7.7 Eos % (Auto) 2.3 Baso % (Auto) 0.3 Neut # (Auto) 5.72 Lymph # (Auto) 0.90 L Crenshaw # (Auto) 0.57 Eos # (Auto) 0.17 Baso # (Auto) 0.02 Immature Gran # (Auto) 0.02 Hypochromasia Present Ovalocytes 1+ Sodium 137 Potassium 3.4 L Chloride 102 Carbon Dioxide 32 Anion Gap 3.0 BUN 49 H Creatinine 1.46 H Est Cr Clr Drug Dosing 41.5 Est GFR ( Amer) 40.1 Est GFR (Non-Af Amer) 34.6 BUN/Creatinine Ratio 33.3 H Glucose 86 POC Glucose 106 H Calcium 8.8 Magnesium 2.5 H Total Bilirubin 0.9 AST 18 ALT 15 Alkaline Phosphatase 90 Total Protein 6.5 Albumin 2.8 L Globulin 3.7 Albumin/Globulin Ratio 0.8 L
--- NOTE | 2020-09-29 09:53 | Heart Failure Progress Note ---
Date of Service September 29, 2020 Assessment & Plan (1) Pulmonary hypertension: (2) Tricuspid regurgitation: (3) Wheelchair dependent: (4) Atrial fibrillation: (5) CAD (coronary artery disease): (6) CKD (chronic kidney disease), stage III: (7) Congestive heart failure with right ventricular systolic dysfunction: (8) Obesity (BMI 30-39.9): (9) Hypertension: Patient remains hypervolemic on exam. She continues to have significant lower extremity edema. Her breathing is worse this morning. Continue wound care for ulceration. She is non ambulatory so exertional symptoms are difficult to assess. Symptoms and echocardiogram are consistent with RV systolic failure secondary to noncompliance with her CPAP. She is responding well to Lasix 40 mg IV BID. Creatinine is stable. BUN slightly elevated. Would continue IV diuretics through today and recheck labs tomorrow. Would recommend transition to PO diuretics 24 hours prior to discharge. Continue to monitor kidney function and electrolytes. Continue to monitor strict I&Os. She is unable to do standing weights. Continue low sodium diet, less than 2,000 mg daily. Encourage CPAP compliance. Discussed the heart failure program and she is agreeable to participation. Will plan outpatient follow up within 7 days of discharge. Disposition: Will continue to follow during hospitalization. Anticipate close outpatient follow up with the heart failure program. Admission and Anticipated Discharge Date Admission Date: September 24, 2020 Subjective Patient reports she's not feeling as well today. Her breathing is a little worse this morning. Her lower extremity edema is stable. She reports she slept well last night with her head slightly elevated. She's net negative 5.5 L so far this admission. Weight is up 4 lb today but likely unreliable by bed scale. She denies chest pain, cough, or wheezing. GI is following for anemia. Iron infusions ordered. May be contributing factor to dyspnea. Physical Exam Physical Exam: Constitutional: Alert, oriented, in no acute distress HEENT: Head is atraumatic and normocephalic. EOMs intact. Sclera anicteric. Face is symmetric. No perioral cyanosis. Mucous membranes moist. Neck: Supple, no JVD Pulmonary: Normal respiratory effort, clear to auscultation bilaterally, dec reased slightly at bases. Cardiac: Irregular rate and rhythm. Normal S1 and S2, no gallops, no rubs, no murmurs Extremities: 2+ radial pulses bilaterally. 2+ posterior tibialis pulses bilaterally. 2+ pitting edema to the knees. Dressing RLE. No cyanosis or clubbing. Abdomen: Normal bowel sounds, soft, non-tender, no abdominal mass palpated Skin: Normal skin color, turgor, and pigmentation, no rash, no skin lesions Neurological: Patient is awake, alert, and oriented. Pleasant and cooperative. Answers questions appropriately. Speech is clear. Results & Data ([facility]) Vital Signs (Past 12 Hours) Vital Signs Temp Pulse Pulse Resp BP BP Pulse Ox 09/29/20 07:32 97.9 F 69 18 115/60 93 09/29/20 07:07 66 09/29/20 03:40 98.4 F 86 19 119/61 90 09/28/20 23:00 98.4 F 64 18 114/55 L 92 09/28/20 22:19 55 L PG Care Time/CCT Total # of Minutes Spent Total Time Spent with Patient: Total time spent is greater than 50% in coordination of care (as documented) at patient's floor/unit and/or counseling patient: Coding Level of Care Code 49832 Subseq Hosp Care Lvl 2 Diagnoses Pulmonary hypertension I27.20 Tricuspid regurgitation I07.1 Wheelchair dependent Z99.3 Atrial fibrillation I48.91 CAD (coronary artery disease) I25.10 CKD (chronic kidney disease), stage III N18.3 Congestive heart failure with right ventricular systolic dysfunction I50.82; I50.20 Obesity (BMI 30-39.9) E66.9 Hypertension I10
--- NOTE | 2020-09-29 17:38 | Progress Notes ---
DATE: 09/29/2020 ADDENDUM: Addendum is to Melvina Arana's progress note from today. The patient is awake, alert. She reports no abdominal pain, nausea or vomiting. She has dark stools from taking oral iron. She did have a stool yesterday, but unfortunately was not hemocculted. Her hemoglobin over the last month has dropped a gram from about 8.2-7.2. She is seeing no visible blood and she is not having any hematemesis. She continues to take Eliquis twice a day for chronic atrial fibrillation and receives outpatient iron infusions. She continues on Protonix IV b.i.d. PHYSICAL EXAMINATION: VITAL SIGNS: Normal. Blood pressure is 115/60, pulse 69, oxygen is 93% saturation. IMPRESSION: The patient is a poor candidate for sedation for endoscopy and without heme positive stools or overt bleeding, I do not think it is indicated at this time. I would recommend iron infusions to restore her iron balance and we would intervene only if she has signs of overt active GI bleeding.
[2020-09-29] MEDS: BACLOFEN 10 MG TAB PO SCH (20:42)
[2020-09-29] MEDS: AMITRIPTYLINE HCL 50 MG TAB PO SCH (20:42)
[2020-09-29] MEDS: POTASSIUM CHLORIDE CRTAB 20 MEQ TABCR PO SCH (20:43)
--- NOTE | 2020-09-29 21:38 | Hospitalist Progress Note ---
Date of Service September 29, 2020 Assessment & Plan (1) Anemia: Patient has a longstanding history of anemia, likely anemia of chronic disease. However, she is considerably lower than priors. Iron studies indicate mix of iron deficiency and chronic disease. - Continue oral iron - Gave 3 rounds of IV iron while in the hospital (Last dose on 09/28). - Hgb continues to fall. Stable today but remains low.. Despite no bleeding seen; stopped aspirin and apixaban. PPI IV BID. GI consulted. -Appreciate input. If hemoglobin drops, will need transfusion. (2) Volume overload: Echo on 09/24 showed EF 50-55% & mild concentric LVH. 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 - Continue Lasix 40 mg IV BID (but skip this afternoon) - Monitor I&Os, weights - Improving today. Kidneys stable with present diuresis. Net negative 4.5L. CHF provider following. Likely switch to oral Lasix tomorrow to find stable home dose. (3) Type 2 diabetes mellitus with diabetic neuropathy, with long-term current use of insulin: A1c was 6.9% in 2019, but nothing in our system more recently. - Glycemic pharmacist consulted - Continue long-acting/sliding scale insulins. -> Sugars 100-150 in last 24 hours. (4) Hypertension: BP presently 130/80. - Continue metoprolol - Lowered hydralazine to 25 mg PO TID (from 50 mg) because of low BPs on 09/26 (5) CAD (coronary artery disease): Previous history of CABG. - Continue beta-jody, statin - Hold ASA on 09/28 for worsening anemia (6) CKD (chronic kidney disease), stage III: Baseline Cr ~1.1-1.3, eGFR ~45. - Cr presently at baseline or just slightly above. - Monitor with diuresis -> Stable at 1.4 today. (7) Atrial fibrillation: HR in the 80s at present. In chronic afib. - Rate controlled with metoprolol XL. - Anticoagulated with apixaban; held on 09/28 for anemia (8) Venous stasis ulcer of right lower leg with edema of right lower leg: Patient is been seeing wound care for a heel ulceration present on admission. - Consult wound care nursing (9) Gout: No active flare at present. - Continue allopurinol (10) DVT prophylaxis: Holding apixaban - SCDs Admission and Anticipated Discharge Date Admission Date: September 24, 2020 Subjective 75 yo female reports feeling well. She has no new complaints. She continues to have no BM today. Review of Systems Review of Systems: All systems reviewed & are unremarkable except as noted in HPI & below Physical Exam Physical Exam: Constitutional: WD/WN, vitals as above + obese Eyes: EOM intact bilaterally; no conjunctival abnormality ENMT: external ear and nose normal, oropharynx normal Neck: trachea midline, no thyromegaly normal visual inspection Respiratory: no respiratory distress Auscultation: + crackles Cardiovascular: Rate/Rhythm: regular rate and regular rhythm Heart Sounds: normal S1 and normal S2 Extremities: + edema (Improved) Gastrointestinal (Abdomen): Inspection/Auscultation: abdomen normal to inspection; abdomen not distended Musculoskeletal: no cyanosis or clubbing, extremities motor strength 5/5 Skin: no rashes, warm and dry + induration (On right triceps area) Neurologic: moves all extremities and awake Psychiatric: Orientation: alert, oriented to person and cooperative Results & Data Results & Data ([facility]) Vital Signs (Past 12 Hours) Vital Signs Temp Pulse Resp BP Pulse Ox 09/29/20 18:26 37 C 69 19 133/65 90 09/29/20 14:56 36.8 C 73 18 122/67 91 09/29/20 11:48 37.0 C 86 18 114/61 91 PG Care Time/CCT Total # of Minutes Spent Total Time Spent with Patient: Total time spent is greater than 50% in coordination of care (as documented) at patient's floor/unit and/or counseling patient: Coding Level of Care Code 90719 Subseq Hosp Care Lvl 3 Diagnoses Anemia D64.9 Volume overload E87.79 Hypervolemia type: other Type 2 diabetes mellitus with diabetic neuropathy, with long-term current use of insulin E11.40; Z79.4 Hypertension I10 CAD (coronary artery disease) I25.10 CKD (chronic kidney disease), stage III N18.3 Atrial fibrillation I48.91 Venous stasis ulcer of right lower leg with edema of right lower leg I83.019; I83.891; L97.919; R60.9 Gout M10.9 DVT prophylaxis Z29.9 (1) Volume overload Hypervolemia type: other Qualified Code(s): E87.79 - Other fluid overload
[2020-09-30] MEDS: ACETAMINOPHEN 500 MG TAB PO PRN (02:23)
[2020-09-30] MEDS: LORazepam 0.5 MG TAB PO PRN (03:57)
[2020-09-30 07:20] LABS: Hematocrit (blood only) 22.6 % (37-47); Hemoglobin 6.6 g/dL (12.0-16.0); Mean Corpuscular Hemoglobin 26.3 pg (25-34); Mean Corpuscular Hgb Conc 29.2 g/dL (32-36); Mean Platelet Volume 7.9 fL (7.4-10.4); Platelet Count 196 K/uL (130-400); RDW Coefficient of Variation 18.8 % (11.5-14.5); Red Blood Count 2.51 M/uL (4.2-5.4); White Blood Count 7.71 K/uL (4.8-10.8)
[2020-09-30 07:38] LABS: Albumin Level 2.7 gm/dl (3.4-5.0); BUN Creatinine Ratio 32.1 (10-20); Basophils # (auto) 0.03 K/uL (0-0.2); Basophils % (auto) 0.4 %; Calcium 8.6 mg/dl (8.5-10.1); Creatinine Clr Calc Pharmacy 42.9 ml/min; Eosinophils # (auto) 0.15 K/uL (0-0.5); Eosinophils % (auto) 1.9 %; Est GFR (African American) 41.1; Est GFR (Non-African American) 35.5; Immature Granulocytes # (auto) 0.03 K/uL (0.00-0.02); Immature Granulocytes % (auto) 0.4 %; Lymphocytes % (auto) 11.7 %; Monocytes # (auto) 0.56 K/uL (0.11-0.59); Monocytes % (auto) 7.3 %; Neutrophils # (auto) 6.04 K/uL (1.4-6.5); Neutrophils % (auto) 78.3 %; Ovalocytes 1+; Potassium 3.3 mmol/L (3.5-5.1)
[2020-09-30 07:41] LABS: Albumin Globulin Ratio 0.7 (0.9-2); Bilirubin,Total 0.9 mg/dl (0.2-1); Globulin 3.6 gm/dl (2.5-4.0); Total Protein 6.3 gm/dl (6.4-8.2)
[2020-09-30] MEDS ORDERED: SODIUM CHLORIDE 0.9% 250 ML IV PRN (08:02)
--- NOTE | 2020-09-30 09:11 | Gastroenterology Progress Note ---
Date of Service September 30, 2020 Assessment & Plan (1) Anemia: Hgb 6.6/Hct 22.6. Plan is to transfuse 2 units PRBC today. Patient with multiple comorbidities and is considered high risk for endoscopy. History of iron deficiency anemia. Received iron infusions while inpatient. On chronic a nticoagulation (Eliquis) BID due to atrial fibrillation. Appears to be currently on hold. Continue Protonix BID. Obtain stool for occult blood testing - nursing aware. Please refer to supervising physician addendum for further recommendations. Admission and Anticipated Discharge Date Admission Date: September 24, 2020 Subjective The patient is alert and oriented, eating breakfast at time of evaluation. Reports bilateral lower extremity pain is significantly better today. Denies abdominal pain, nausea, or vomiting. No bowel movement yesterday or today. Nursing aware to collect for fecal occult blood testing. Patient Hgb 6.6/Hct 22.6 today. Plan is to transfuse 2 units PRBC today. Review of Systems Review of Systems: All systems reviewed & are unremarkable except as noted in Subjective Physical Exam Constitutional: WD/WN, vitals as above Eyes: no eyelid abnormality ENMT: Nose: no external nose abnormality Neck: normal visual inspection and trachea midline Respiratory: normal respiratory effort; no respiratory distress and no labored breathing Cardiovascular: Rate/Rhythm: + irregularly irregular Extremities: + edema Gastrointestinal (Abdomen): Inspection/Auscultation: abdomen normal to inspection and normal bowel sounds Percussion/Palpation: abdomen soft; abdomen nontender, no guarding and abdomen not rigid Musculoskeletal: Extremities: no cyanosis and no clubbing Skin: + ecchymosis (Anterior right upper arm ) Neurologic: PERRL, EOMI, accommodation nl, no face palsy, no dysarthria Psychiatric: A+Ox3, euthymic affect Results & Data ([facility]) Vital Signs (Past 12 Hours) Vital Signs Temp Pulse Pulse Resp BP BP Pulse Ox 09/30/20 07:33 36.3 C L 74 18 130/68 91 09/30/20 07:25 103 H 09/30/20 04:00 36.6 C 100 H 21 123/67 95 09/29/20 23:15 75 09/29/20 23:10 37 C 66 20 150/79 H 91 Laboratory Results - last 24 hr 09/29/20 09/29/20 09/29/20 11:23 16:52 20:10 WBC RBC Hgb Hct MCV MCH MCHC RDW Std Deviation RDW Coeff of Lelo Plt Count MPV Immature Gran % (Auto) Neut % (Auto) Lymph % (Auto) Bond % (Auto) Eos % (Auto) Baso % (Auto) Neut # (Auto) Lymph # (Auto) Bond # (Auto) Eos # (Auto) Baso # (Auto) Immature Gran # (Auto) Ovalocytes Sodium Potassium Chloride Carbon Dioxide Anion Gap BUN Creatinine Est Cr Clr Drug Dosing Est GFR ( Amer) Est GFR (Non-Af Amer) BUN/Creatinine Ratio Glucose POC Glucose 153 H 129 H 175 H Calcium Total Bilirubin AST ALT Alkaline Phosphatase Total Protein Albumin Globulin Albumin/Globulin Ratio Blood Type Antibody Screen Crossmatch 09/30/20 09/30/20 09/30/20 06:55 06:55 07:24 WBC 7.71 RBC 2.51 L Hgb 6.6 L* Hct 22.6 L MCV 90.0 MCH 26.3 MCHC 29.2 L RDW Std Deviation 62.0 H RDW Coeff of Lelo 18.8 H Plt Count 196 MPV 7.9 Immature Gran % (Auto) 0.4 Neut % (Auto) 78.3 Lymph % (Auto) 11.7 Bond % (Auto) 7.3 Eos % (Auto) 1.9 Baso % (Auto) 0.4 Neut # (Auto) 6.04 Lymph # (Auto) 0.90 L Bond # (Auto) 0.56 Eos # (Auto) 0.15 Baso # (Auto) 0.03 Immature Gran # (Auto) 0.03 H Ovalocytes 1+ Sodium 136 Potassium 3.3 L Chloride 103 Carbon Dioxide 28 Anion Gap 5.0 BUN 46 H Creatinine 1.43 H Est Cr Clr Drug Dosing 42.9 Est GFR ( Amer) 41.1 Est GFR (Non-Af Amer) 35.5 BUN/Creatinine Ratio 32.1 H Glucose 99 POC Glucose 115 H Calcium 8.6 Total Bilirubin 0.9 AST 24 ALT 18 Alkaline Phosphatase 84 Total Protein 6.3 L Albumin 2.7 L Globulin 3.6 Albumin/Globulin Ratio 0.7 L Blood Type Antibody Screen Crossmatch 09/30/20 08:08 WBC RBC Hgb Hct MCV MCH MCHC RDW Std Deviation RDW Coeff of Lelo Plt Count MPV Immature Gran % (Auto) Neut % (Auto) Lymph % (Auto) Bond % (Auto) Eos % (Auto) Baso % (Auto) Neut # (Auto) Lymph # (Auto) Bond # (Auto) Eos # (Auto) Baso # (Auto) Immature Gran # (Auto) Ovalocytes Sodium Potassium Chloride Carbon Dioxide Anion Gap BUN Creatinine Est Cr Clr Drug Dosing Est GFR ( Amer) Est GFR (Non-Af Amer) BUN/Creatinine Ratio Glucose POC Glucose Calcium Total Bilirubin AST ALT Alkaline Phosphatase Total Protein Albumin Globulin Albumin/Globulin Ratio Blood Type A Positive Antibody Screen NEGATIVE Crossmatch See Detail
[2020-09-30] MEDS: allopurinoL 100 MG TAB PO SCH (09:13)
[2020-09-30] MEDS: METOPROLOL SUCC 25MG EXT REL TAB PO SCH (09:13)
[2020-09-30] MEDS: POTASSIUM CHLORIDE CRTAB 20 MEQ TABCR PO SCH ×2 (09:13→20:25)
[2020-09-30] MEDS: ROSUVASTATIN CALCIUM 20 MG TAB PO SCH (09:14)
[2020-09-30] MEDS: CHOLECALCIFEROL 1,000 UNITS 25 MCG TAB PO SCH (09:14)
[2020-09-30] MEDS: MAGNESIUM CHLORIDE 64MG DELAYED REL TAB PO SCH ×3 (09:14→20:22)
[2020-09-30] MEDS: hydrALAZINE HCL 25 MG TAB PO SCH ×3 (09:14→20:24)
[2020-09-30] MEDS: FUROSEMIDE 40 MG in SYRINGE 0 ML IV SCH ×2 (09:15→17:23)
[2020-09-30] MEDS: PANTOprazole 40 MG in SYRINGE 0 ML IV SCH ×2 (09:15→20:22)
[2020-09-30] MEDS: INSULIN ASPART 100 UNITS/ML 3 ML PEN SC SCH ×4 (09:15→20:33)
[2020-09-30] MEDS: INSULIN DETEMIR FLEXPEN/FLEX TOUCH 100 UNITS/ML 3ML SQ SCH ×2 (09:17→20:32)
--- NOTE | 2020-09-30 10:55 | Heart Failure Progress Note ---
Date of Service September 30, 2020 Assessment & Plan (1) Pulmonary hypertension: (2) Tricuspid regurgitation: (3) Wheelchair dependent: (4) Atrial fibrillation: (5) CAD (coronary artery disease): (6) CKD (chronic kidney disease), stage III: (7) Congestive heart failure with right ventricular systolic dysfunction: (8) Obesity (BMI 30-39.9): (9) Hypertension: Patient is likely near euvolemic on exam. She continues to have significant lower extremity edema which is likely stable and chronic due to her RV failure. Continue wound care for ulceration. She is non ambulatory so exertional symptoms are difficult to assess. Symptoms and echocardiogram are consistent with RV systolic failure secondary to noncompliance with her CPAP. Anemia may also be contributing factor. GI is following. She is responding well to Lasix 40 mg IV BID (negative >6 L). Would continue IV diuretics through today since she's receiving blood. Recheck labs tomorrow. Would recommend transition to PO diuretics at least 24 hours prior to discharge to be sure she can maintain. Continue to monitor kidney function and electrolytes. Replete potassium as needed. Continue to monitor strict I&Os. She is unable to do standing weights. Continue low sodium diet, less than 2,000 mg daily. Encourage CPAP compliance. Discussed the heart failure program and she is agreeable to participation. Will plan outpatient follow up within 7 days of discharge. Disposition: Will continue to follow during hospitalization. Anticipate close outpatient follow up with the heart failure program. Admission and Anticipated Discharge Date Admission Date: September 24, 2020 Subjective Patient reports she's feeling "ok" today. Her hemoglobin has dropped further and she's currently receiving a transfusion. Her breathing is stable. She slept well last night. Her edema is stable. She is net negative 6.2 L so far this admission. Her weight is trending up but is a bed weight so likely unreliable. She denies chest pain, wheezing, coughing, PND. Physical Exam Physical Exam: Constitutional: Alert, oriented, in no acute distress HEENT: Head is atraumatic and normocephalic. EOMs intact. Sclera anicteric. Face is symmetric. No perioral cyanosis. Mucous membranes moist. Neck: Supple, no JVD Pulmonary: Normal respiratory effort, clear to auscultation bilaterally, decreased slightly at bases. Cardiac: Irregular rate and rhythm. Normal S1 and S2, no gallops, no rubs, no murmurs Extremities: 2+ radial pulses bilaterally. 2+ posterior tibialis pulses bilaterally. 2+ pitting edema to the knees. Dressing RLE. No cyanosis or clubbing. Abdomen: Normal bowel sounds, soft, non-tender, no abdominal mass palpated Skin: Normal skin color, turgor, and pigmentation, no rash, no skin lesions Neurological: Patient is awake, alert, and oriented. Pleasant and cooperative. Answers questions appropriately. Speech is clear. Results & Data ([facility]) Vital Signs (Past 12 Hours) Vital Signs Temp Pulse Pulse Resp BP BP BP 09/30/20 10:02 98.1 F 72 18 123/67 09/30/20 09:45 97.5 F L 91 H 20 126/61 09/30/20 09:31 97.5 F L 91 H 18 120/68 09/30/20 07:33 97.3 F L 74 18 130/68 09/30/20 07:25 103 H 09/30/20 04:00 97.9 F 100 H 21 123/67 09/29/20 23:15 75 09/29/20 23:10 98.6 F 66 20 150/79 H Pulse Ox 09/30/20 10:02 97 09/30/20 09:45 96 09/30/20 09:31 09/30/20 07:33 91 09/30/20 07:25 09/30/20 04:00 95 09/29/20 23:15 09/29/20 23:10 91 PG Care Time/CCT Total # of Minutes Spent Total Time Spent with Patient: Total time spent is greater than 50% in coordination of care (as documented) at patient's floor/unit and/or counseling patient: Coding Diagnoses Pulmonary hypertension I27.20 Tricuspid regurgitation I07.1 Wheelchair dependent Z99.3 Atrial fibrillation I48.91 CAD (coronary artery disease) I25.10 CKD (chronic kidney disease), stage III N18.3 Congestive heart failure with right ventricular systolic dysfunction I50.82; I50.20 Obesity (BMI 30-39.9) E66.9 Hypertension I10
--- NOTE | 2020-09-30 15:08 | Pharmacy Report ---
Pharmacy Glycemic Short Note 2 - Date of Service September 30, 2020 - Glycemic Short BSG Results (Last 24 hours): 09/29/20 09/29/20 09/30/20 16:52 20:10 06:55 Glucose 99 POC Glucose 129 H 175 H 09/30/20 09/30/20 07:24 11:21 Glucose POC Glucose 115 H 189 H OUTPATIENT ANTIDIABETIC REGIMEN: * Levemir 22 units SQ BID * Novolog 5 units SQ QID + SSI * HbA1c: 6.1% (09/25/20) ASSESSMENT: 09/30: * Patient received total 52 units of insulin yesterday: 32 units basal (12 units in AM and 20 units at HS) + 20 units bolus * Fasting BSGs have been at goal these last few days. Will continue current dosing of basal Levemir. * Post-prandial BSGs have been in range as well. Continuing current Novolog parameters. 09/26/20: * Ms Ramires received 50 units of insulin yesterday. * Basal: 30 units * Prandial/correctional: 20 units * Several BSGs have been below goal range, with an episode of hypoglycemia (BSG 65mg/dL) this morning. * Basal insulin scale was reduced this morning and Novolog parameters were loosened. 09/24 * 75 year old female admitted with symptoms of heart failure. Type 2 diabetic managed on insulin at home * Patient follows with [facility] for diabetes management. Per notes, patient adjusts bolus insulin based upon BSG value * Plan to continue home Levemir dosing / add correctional insulin based upon stress of 2/3 dosing PLAN FOR INPATIENT GLYCEMIC CONTROL: * Basal insulin: continue * Levemir 12-20 units SQ BID, based on scale (see EMR for details) * Bolus insulin: continue * NovoLog per scale ACHS or Q6hrs while NPO * Goal Range: Low 110 mg/dL - High 140 mg/dL * Correction Factor: 25 mg/dL/unit * Nutritional / Prandial insulin per carb ratio of 1 unit per 7 grams CHO consumed PLAN FOR DISCHARGE: * A1c: 6.1% * Expect that pt may resume home regimen on discharge, as long as she does not report having episodes of hypoglycemia. * [facility] with [facility] for diabetes management.
[2020-09-30] MEDS: AMITRIPTYLINE HCL 50 MG TAB PO SCH (20:23)
[2020-09-30] MEDS: BACLOFEN 10 MG TAB PO SCH (20:24)
--- NOTE | 2020-09-30 22:58 | Hospitalist Progress Note ---
Date of Service September 30, 2020 Assessment & Plan (1) Anemia: Patient has a longstanding history of anemia, likely anemia of chronic disease. However, she is considerably lower than priors. Iron studies indicate mix of iron deficiency and chronic disease. - Continue oral iron - Gave 3 rounds of IV iron while in the hospital (Last dose on 09/28). - Hgb continues to fall. Stable today but remains low.. Despite no bleeding seen; stopped aspirin and apixaban. PPI IV BID. GI consulted. -Appreciate input. hemoglobin dropped, will transfuse. (2) Volume overload: Echo on 09/24 showed EF 50-55% & mild concentric LVH. Likely acute systo lic RV CHF in setting of CPAP noncompliance and fluid volume overload. - Continue Lasix 40 mg IV BID (but skip this afternoon) - Monitor I&Os, weights - Improving today. Kidneys stable with present diuresis. Net negative 4.5L. CHF provider following. Likely switch to oral Lasix tomorrow to find stable home dose. (3) Type 2 diabetes mellitus with diabetic neuropathy, with long-term current use of insulin: A1c was 6.9% in 2019, but nothing in our system more recently. - Glycemic pharmacist consulted - Continue long-acting/sliding scale insulins. -> Sugars 100-150 in last 24 hours. (4) Hypertension: BP presently 130/80. - Continue metoprolol - Lowered hydralazine to 25 mg PO TID (from 50 mg) because of low BPs on 09/26 (5) CAD (coronary artery disease): Previous history of CABG. - Continue beta-jody, statin - Hold ASA on 09/28 for worsening anemia (6) CKD (chronic kidney disease), stage III: Baseline Cr ~1.1-1.3, eGFR ~45. - Cr presently at baseline or just slightly above. - Monitor with diuresis -> Stable at 1.4 today. (7) Atrial fibrillation: HR in the 80s at present. In chronic afib. - Rate controlled with metoprolol XL. - Anticoagulated with apixaban; held on 09/28 for anemia (8) Venous stasis ulcer of right lower leg with edema of right lower leg: Patient is been seeing wound care for a heel ulceration present on admission. - Consult wound care nursing (9) Gout: No active flare at present. - Continue allopurinol (10) DVT prophylaxis: Holding apixaban - [facility] Admission and Anticipated Discharge Date Admission Date: September 24, 2020 Subjective Patient reports no new symptoms today. Review of Systems Review of Systems: All systems reviewed & are unremarkable except as noted in HPI & below Physical Exam Physical Exam: Constitutional: WD/WN, vitals as above + obese Eyes: EOM intact bilaterally; no conjunctival abnormality ENMT: external ear and nose normal, oropharynx normal Neck: trachea midline, no thyromegaly normal visual inspection Respiratory: no respiratory distress Auscultation: + crackles Cardiovascular: Rate/Rhythm: regular rate and regular rhythm Heart Sounds: normal S1 and normal S2 Extremities: + edema (Improved) Gastrointestinal (Abdomen): Inspection/Auscultation: abdomen normal to inspection; abdomen not distended Musculoskeletal: no cyanosis or clubbing, extremities motor strength 5/5 Skin: no rashes, warm and dry + induration (On right triceps area) Neurologic: moves all extremities and awake Psychiatric: Orientation: alert, oriented to person and cooperative Results & Data Results & Data ([facility]) Vital Signs (Past 12 Hours) Vital Signs Temp Pulse Pulse Resp BP BP Pulse Ox 09/30/20 19:18 36.8 C 76 18 127/69 94 09/30/20 15:07 36.7 C 68 18 126/65 96 09/30/20 14:25 36.9 C 74 18 127/79 97 09/30/20 13:56 36.9 C 55 L 18 116/68 96 09/30/20 13:41 36.6 C 62 18 124/69 92 09/30/20 13:24 36.7 C 80 18 130/65 09/30/20 13:15 36.8 C 60 18 118/55 L 96 PG Care Time/CCT Total # of Minutes Spent Total Time Spent with Patient: Total time spent is greater than 50% in coordination of care (as documented) at patient's floor/unit and/or counseling patient: Coding Level of Care Code 35855 Subseq Hosp Care Lvl 2 Diagnoses Anemia D64.9 Volume overload E87.79 Hypervolemia type: other Type 2 diabetes mellitus with diabetic neuropathy, with long-term current use of insulin E11.40; Z79.4 Hypertension I10 CAD (coronary artery disease) I25.10 CKD (chronic kidney disease), stage III N18.3 Atrial fibrillation I48.91 Venous stasis ulcer of right lower leg with edema of right lower leg I83.019; I83.891; L97.919; R60.9 Gout M10.9 DVT prophylaxis Z29.9 Time Spent (min) 35 (1) Volume overload Hypervolemia type: other Qualified Code(s): E87.79 - Other fluid overload
[2020-10-01 08:05] LABS: Basophils # (auto) 0.02 K/uL (0-0.2); Basophils % (auto) 0.3 %; Eosinophils # (auto) 0.18 K/uL (0-0.5); Eosinophils % (auto) 2.4 %; Hematocrit (blood only) 27.5 % (37-47); Hemoglobin 8.3 g/dL (12.0-16.0); Immature Granulocytes # (auto) 0.04 K/uL (0.00-0.02); Immature Granulocytes % (auto) 0.5 %; Lymphocytes # (auto) 1.03 K/uL (1.2-3.4); Lymphocytes % (auto) 13.9 %; Mean Corpuscular Hgb Conc 30.2 g/dL (32-36); Mean Corpuscular Volume 89.6 fL (80-100); Mean Platelet Volume 8.2 fL (7.4-10.4); Monocytes # (auto) 0.61 K/uL (0.11-0.59); Monocytes % (auto) 8.2 %; Neutrophils # (auto) 5.54 K/uL (1.4-6.5); Neutrophils % (auto) 74.7 %; Platelet Count 194 K/uL (130-400); RDW Coefficient of Variation 18.5 % (11.5-14.5); RDW Standard Deviation 59.4 fL (36.4-46.3); Red Blood Count 3.07 M/uL (4.2-5.4); White Blood Count 7.42 K/uL (4.8-10.8)
[2020-10-01 08:40] LABS: Albumin Level 2.7 gm/dl (3.4-5.0); Calcium 8.6 mg/dl (8.5-10.1); Creatinine Clr Calc Pharmacy 41.7 ml/min; Est GFR (African American) 40.4; Est GFR (Non-African American) 34.9; Potassium 3.6 mmol/L (3.5-5.1)
[2020-10-01 08:45] LABS: Albumin Globulin Ratio 0.7 (0.9-2); Bilirubin,Total 1.5 mg/dl (0.2-1); Globulin 3.8 gm/dl (2.5-4.0); Total Protein 6.5 gm/dl (6.4-8.2)
[2020-10-01] MEDS: ROSUVASTATIN CALCIUM 20 MG TAB PO SCH (09:15)
[2020-10-01] MEDS: allopurinoL 100 MG TAB PO SCH (09:15)
[2020-10-01] MEDS: hydrALAZINE HCL 25 MG TAB PO SCH ×3 (09:15→20:17)
[2020-10-01] MEDS: MAGNESIUM CHLORIDE 64MG DELAYED REL TAB PO SCH ×3 (09:16→20:18)
[2020-10-01] MEDS: POTASSIUM CHLORIDE CRTAB 20 MEQ TABCR PO SCH ×2 (09:16→20:19)
[2020-10-01] MEDS: METOPROLOL SUCC 25MG EXT REL TAB PO SCH (09:16)
[2020-10-01] MEDS: CHOLECALCIFEROL 1,000 UNITS 25 MCG TAB PO SCH (09:16)
[2020-10-01] MEDS: INSULIN DETEMIR FLEXPEN/FLEX TOUCH 100 UNITS/ML 3ML SQ SCH ×2 (09:17→21:13)
[2020-10-01] MEDS: FUROSEMIDE 40 MG in SYRINGE 0 ML IV SCH ×2 (09:17→17:43)
[2020-10-01] MEDS: PANTOprazole 40 MG in SYRINGE 0 ML IV SCH ×2 (09:17→21:14)
[2020-10-01] MEDS: INSULIN ASPART 100 UNITS/ML 3 ML PEN SC SCH ×4 (09:17→21:12)
--- NOTE | 2020-10-01 10:43 | Progress Notes ---
DATE: 10/01/2020 SUBJECTIVE: The patient received 2 units of blood yesterday for a drop in her hemoglobin from 6.6, it is now 8.3 following the transfusion. She did have a stool Hemoccult, which was positive, but she has had no signs of overt bleeding. PHYSICAL EXAMINATION: VITAL SIGNS: Blood pressure is 114/54, pulse 75 and irregular. IMPRESSION: The patient is anemic from multiple causes, but she does have heme positive stool and a relatively high BUN to creatinine ratio suggesting a possible upper gastrointestinal source. Unfortunately, due to her multiple comorbidities, she is a poor candidate for endoscopic intervention and we would only undertake this in the case of an acute life-threatening bleed. We will continue her proton pump inhibitor treatment for now and oral iron following her IV infusions earlier this hospitalization.
--- NOTE | 2020-10-01 19:07 | XRay Report ---
SINGLE VIEW CHEST CLINICAL HISTORY: Dyspnea. FINDINGS: 2 AP, portable, upright chest radiographs are compared to study dated 09/24/2020. The exami nation is degraded by portable technique and patient rotation. The patient is status post midline darryl rnotomy. The heart is enlarged noting atherosclerotic calcification of the thoracic aorta. There is p ulmonary vascular congestion. There is bibasilar atelectasis. Parenchymal scarring and postoperative change is again seen in the right midlung. No focal airspace consolidation or large pleural effusion is identified. No pneumothorax is seen. The skeletal structures are osteopenic. The bony thorax is gr ossly intact. IMPRESSION: Cardiomegaly with evidence of mild congestive failure. ACT 112: Negative or not required by law. Electronically signed by: Albert Bonner M.D. 10/01/2020 7:06 PM
[2020-10-01] MEDS: ACETAMINOPHEN 500 MG TAB PO PRN (20:16)
[2020-10-01] MEDS: AMITRIPTYLINE HCL 50 MG TAB PO SCH (20:17)
[2020-10-01] MEDS: BACLOFEN 10 MG TAB PO SCH (20:19)
--- NOTE | 2020-10-01 22:37 | Hospitalist Progress Note ---
Date of Service October 01, 2020 Assessment & Plan (1) Anemia: Patient has a longstanding history of anemia, likely anemia of chronic disease. However, she is considerably lower than priors. Iron studies indicate mix of iron deficiency and chronic disease. - Continue oral iron - Gave 3 rounds of IV iron while in the hospital (Last dose on 09/28). - Hgb continues to fall. Stable today but remains low.. Despite no bleeding seen; stopped aspirin and apixaban. PPI IV BID. GI consulted. -Appreciate input. hemoglobin improved after transfusion. patient is SOB, checking xray for TRALI. (2) Volume overload: Echo on 09/24 showed EF 50-55% & mild concentric LVH. 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 - Continue Lasix 40 mg IV BID (but skip this afternoon) - Monitor I&Os, weights - Improving today. Kidneys stable with present diuresis. Net negative 4.5L. CHF provider following. Likely switch to oral Lasix tomorrow to find stable home dose. (3) Type 2 diabetes mellitus with diabetic neuropathy, with long-term current use of insulin: A1c was 6.9% in 2019, but nothing in our system more recently. - Glycemic pharmacist consulted - Continue long-acting/sliding scale insulins. -> Sugars 100-150 in last 24 hours. (4) Hypertension: BP presently 130/80. - Continue metoprolol - Lowered hydralazine to 25 mg PO TID (from 50 mg) because of low BPs on 09/26 (5) CAD (coronary artery disease): Previous history of CABG. - Continue beta-jody, statin - Hold ASA on 09/28 for worsening anemia (6) CKD (chronic kidney disease), stage III: Baseline Cr ~1.1-1.3, eGFR ~45. - Cr presently at baseline or just slightly above. - Monitor with diuresis -> Stable (7) Atrial fibrillation: HR in the 80s at present. In chronic afib. - Rate controlled with metoprolol XL. - Anticoagulated with apixaban; held on 09/28 for anemia (8) Venous stasis ulcer of right lower leg with edema of right lower leg: Patient is been seeing wound care for a heel ulceration present on admission. - Consult wound care nursing (9) Gout: No active flare at present. - Continue allopurinol (10) DVT prophylaxis: [place] [facility] [place]mission and Anticipated Discharge Date Admission Date: September 24, 2020 Subjective Patient reports feeling more short of breath today. Review of Systems Review of Systems: All systems reviewed & are unremarkable except as noted in HPI & below Physical Exam Physical Exam: Constitutional: WD/WN, vitals as above + obese Eyes: EOM intact bilaterally; no conjunctival abnormality ENMT: external ear and nose normal, oropharynx normal Neck: trachea midline, no thyromegaly normal visual inspection Respiratory: no respiratory distress Auscultation: + crackles Cardiovascular: Rate/Rhythm: regular rate and regular rhythm Heart Sounds: normal S1 and normal S2 Extremities: + edema (Improved) Gastrointestinal (Abdomen): Inspection/Auscultation: abdomen normal to inspection; abdomen not distended Musculoskeletal: no cyanosis or clubbing, extremities motor strength 5/5 Skin: no rashes, warm and dry + induration (On right triceps area) Neurologic: moves all extremities and awake Psychiatric: Orientation: alert, oriented to person and cooperative Results & Data Results & Data ([facility]) Vital Signs (Past 12 Hours) Vital Signs Temp Pulse Resp BP BP Pulse Ox 10/01/20 19:11 36.9 C 79 20 146/91 H 95 10/01/20 15:55 36.6 C 79 18 119/72 90 10/01/20 11:43 36.7 C 90 16 110/65 98 PG Care Time/CCT Total # of Minutes Spent Total Time Spent with Patient: Total time spent is greater than 50% in coordination of care (as documented) at patient's floor/unit and/or counseling patient: Coding Level of Care Code 12931 Subseq Hosp Care Lvl 2 Diagnoses Anemia D64.9 Volume overload E87.79 Hypervolemia type: other Type 2 diabetes mellitus with diabetic neuropathy, with long-term current use of insulin E11.40; Z79.4 Hypertension I10 CAD (coronary artery disease) I25.10 CKD (chronic kidney disease), stage III N18.3 Atrial fibrillation I48.91 Venous stasis ulcer of right lower leg with edema of right lower leg I83.019; I83.891; L97.919; R60.9 Gout M10.9 DVT prophylaxis Z29.9 (1) Volume overload Hypervolemia type: other Qualified Code(s): E87.79 - Other fluid overload
[2020-10-02 05:49] LABS: Basophils # (auto) 0.03 K/uL (0-0.2); Basophils % (auto) 0.5 %; Eosinophils # (auto) 0.19 K/uL (0-0.5); Eosinophils % (auto) 3.2 %; Hematocrit (blood only) 27.3 % (37-47); Hemoglobin 8.2 g/dL (12.0-16.0); Immature Granulocytes # (auto) 0.03 K/uL (0.00-0.02); Immature Granulocytes % (auto) 0.5 %; Lymphocytes # (auto) 0.77 K/uL (1.2-3.4); Lymphocytes % (auto) 12.9 %; Mean Corpuscular Hemoglobin 27.3 pg (25-34); Mean Platelet Volume 8.6 fL (7.4-10.4); Monocytes % (auto) 10.1 %; Neutrophils # (auto) 4.34 K/uL (1.4-6.5); Neutrophils % (auto) 72.8 %; Platelet Count 200 K/uL (130-400); RDW Coefficient of Variation 18.4 % (11.5-14.5); RDW Standard Deviation 61.1 fL (36.4-46.3); White Blood Count 5.96 K/uL (4.8-10.8)
[2020-10-02 06:21] LABS: Albumin Level 2.8 gm/dl (3.4-5.0); BUN Creatinine Ratio 36.2 (10-20); Calcium 8.6 mg/dl (8.5-10.1); Creatinine Clr Calc Pharmacy 43.2 ml/min; Est GFR (African American) 42.2; Est GFR (Non-African American) 36.4; Potassium 3.7 mmol/L (3.5-5.1)
[2020-10-02 06:24] LABS: Albumin Globulin Ratio 0.8 (0.9-2); Bilirubin,Total 1.2 mg/dl (0.2-1); Globulin 3.6 gm/dl (2.5-4.0); Total Protein 6.4 gm/dl (6.4-8.2)
[2020-10-02] MEDS: FUROSEMIDE 40 MG in SYRINGE 0 ML IV SCH ×2 (08:32→17:20)
[2020-10-02] MEDS: METOPROLOL SUCC 25MG EXT REL TAB PO SCH (08:33)
[2020-10-02] MEDS: POTASSIUM CHLORIDE CRTAB 20 MEQ TABCR PO SCH ×2 (08:33→20:43)
[2020-10-02] MEDS: CHOLECALCIFEROL 1,000 UNITS 25 MCG TAB PO SCH (08:33)
[2020-10-02] MEDS: ROSUVASTATIN CALCIUM 20 MG TAB PO SCH (08:33)
[2020-10-02] MEDS: hydrALAZINE HCL 25 MG TAB PO SCH ×3 (08:34→20:42)
[2020-10-02] MEDS: MAGNESIUM CHLORIDE 64MG DELAYED REL TAB PO SCH ×3 (08:34→20:42)
[2020-10-02] MEDS: allopurinoL 100 MG TAB PO SCH (08:34)
[2020-10-02] MEDS: INSULIN ASPART 100 UNITS/ML 3 ML PEN SC SCH ×4 (08:35→20:47)
[2020-10-02] MEDS: INSULIN DETEMIR FLEXPEN/FLEX TOUCH 100 UNITS/ML 3ML SQ SCH ×2 (08:37→20:49)
[2020-10-02] MEDS: PANTOprazole 40 MG in SYRINGE 0 ML IV SCH ×2 (08:37→20:44)
[2020-10-02] MEDS: LORazepam 0.5 MG TAB PO PRN (09:50)
[2020-10-02] MEDS: ACETAMINOPHEN 500 MG TAB PO PRN ×2 (09:50→20:45)
[2020-10-02] MEDS ORDERED: traMADol HCL 50 MG TABLET PO STA (11:12)
[2020-10-02] MEDS: BACLOFEN 10 MG TAB PO SCH (20:42)
[2020-10-02] MEDS: AMITRIPTYLINE HCL 50 MG TAB PO SCH (20:43)
--- NOTE | 2020-10-02 22:32 | Hospitalist Progress Note ---
Date of Service October 02, 2020 Assessment & Plan (1) Anemia: Patient has a longstanding history of anemia, likely anemia of chronic disease. However, she is considerably lower than priors. Iron studies indicate mix of iron deficiency and chronic disease. - Continue oral iron - Gave 3 rounds of IV iron while in the hospital (Last dose on 09/28). - Hgb continues to fall. Stable today but remains low.. Despite no bleeding seen; stopped aspirin and apixaban. PPI IV BID. GI consulted. -Appreciate input. hemoglobin improved after transfusion. Hemoglobin has remained stable. will await tomorrow's lab if stable may consider discharge. SOB reolved after one day. This occurred on 10/01. (2) Volume overload: Echo on 09/24 showed EF 50-55% & mild concentric LVH. 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 - Continue Lasix 40 mg IV BID (but skip this afternoon) - Monitor I&Os, weights - Improving today. Kidneys stable with present diuresis. Net negative 4.5L. CHF provider following. Due to SOB on 10/01 and recent transfusion, patient has remained on IV furosemide. will switch in AM of 10/03/20 (3) Type 2 diabetes mellitus with diabetic neuropathy, with long-term current use of insulin: A1c was 6.9% in 2019, but nothing in our system more recently. - Glycemic pharmacist consulted - Continue long-acting/sliding scale insulins. -> Sugars 100-150 in last 24 hours. (4) Hypertension: BP presently 130/80. - Continue metoprolol - Lowered hydralazine to 25 mg PO TID (from 50 mg) because of low BPs on 09/26 (5) CAD (coronary artery disease): Previous history of CABG. - Continue beta-jody, statin - Hold ASA on 09/28 for worsening anemia (6) CKD (chronic kidney disease), stage III: Baseline Cr ~1.1-1.3, eGFR ~45. - Cr presently at baseline or just slightly above. - Monitor with diuresis -> Stable (7) Atrial fibrillation: HR in the 80s at present. In chronic afib. - Rate controlled with metoprolol XL. - Anticoagulated with apixaban; held on 09/28 for anemia (8) Venous stasis ulcer of right lower leg with edema of right lower leg: Patient is been seeing wound care for a heel ulceration present on admission. - Consult wound care nursing (9) Gout: No active flare at present. - Continue allopurinol (10) DVT prophylaxis: [facility] [place] [facility] [place] Admission and Anticipated Discharge Date Admission Date: September 24, 2020 Subjective 75 yo female reports feeling better today. She has no complaints of SOB, nausea, vomiting. Her main complaint today is her edemma in her lower extremities. Review of Systems Review of Systems: All systems reviewed & are unremarkable except as noted in HPI & below Physical Exam Physical Exam: Constitutional: WD/WN, vitals as above + obese Eyes: EOM intact bilaterally; no conjunctival abnormality ENMT: external ear and nose normal, oropharynx normal Neck: trachea midline, no thyromegaly normal visual inspection Respiratory: no respiratory distress Auscultation: + decreased crackles Cardiovascular: Rate/Rhythm: regular rate and regular rhythm Heart Sounds: normal S1 and normal S2 Extremities: + edema (Improved) Gastrointestinal (Abdomen): Inspection/Auscultation: abdomen normal to inspection; abdomen not distended Musculoskeletal: no cyanosis or clubbing, extremities motor strength 5/5 Skin: no rashes, warm and dry + induration (On right triceps area) Neurologic: moves all extremities and awake Psychiatric: Orientation: alert, oriented to person and cooperative Results & Data Results & Data ([facility]) Vital Signs (Past 12 Hours) Vital Signs Temp Pulse Resp BP BP Pulse Ox 10/02/20 19:14 36.5 C 64 18 110/62 93 10/02/20 15:56 35.8 C L 62 16 143/77 H 93 10/02/20 11:50 36.7 C 58 L 18 117/55 L 94 PG Care Time/CCT Total # of Minutes Spent Total Time Spent with Patient: Total time spent is greater than 50% in coordination of care (as documented) at patient's floor/unit and/or counseling patient: Coding Level of Care Code 02988 Subseq Hosp Care Lvl 2 Diagnoses Anemia D64.9 Volume overload E87.79 Hypervolemia type: other Type 2 diabetes mellitus with diabetic neuropathy, with long-term current use of insulin E11.40; Z79.4 Hypertension I10 CAD (coronary artery disease) I25.10 CKD (chronic kidney disease), stage III N18.3 Atrial fibrillation I48.91 Venous stasis ulcer of right lower leg with edema of right lower leg I83.019; I83.891; L97.919; R60.9 Gout M10.9 DVT prophylaxis Z29.9 Time Spent (min) 25 (1) Volume overload Hypervolemia type: other Qualified Code(s): E87.79 - Other fluid overload
[2020-10-03 06:18] LABS: Basophils # (auto) 0.02 K/uL (0-0.2); Basophils % (auto) 0.4 %; Eosinophils # (auto) 0.11 K/uL (0-0.5); Hematocrit (blood only) 27.6 % (37-47); Hemoglobin 8.3 g/dL (12.0-16.0); Immature Granulocytes # (auto) 0.01 K/uL (0.00-0.02); Immature Granulocytes % (auto) 0.2 %; Lymphocytes # (auto) 0.56 K/uL (1.2-3.4); Lymphocytes % (auto) 10.4 %; Mean Corpuscular Hemoglobin 27.5 pg (25-34); Mean Corpuscular Hgb Conc 30.1 g/dL (32-36); Mean Corpuscular Volume 91.4 fL (80-100); Mean Platelet Volume 8.3 fL (7.4-10.4); Monocytes # (auto) 0.42 K/uL (0.11-0.59); Monocytes % (auto) 7.8 %; Neutrophils # (auto) 4.27 K/uL (1.4-6.5); Neutrophils % (auto) 79.2 %; Platelet Count 185 K/uL (130-400); RDW Coefficient of Variation 18.3 % (11.5-14.5); RDW Standard Deviation 61.2 fL (36.4-46.3); Red Blood Count 3.02 M/uL (4.2-5.4); White Blood Count 5.39 K/uL (4.8-10.8)
[2020-10-03 06:43] LABS: Albumin Level 2.6 gm/dl (3.4-5.0); BUN Creatinine Ratio 34.5 (10-20); Calcium 8.7 mg/dl (8.5-10.1); Creatinine Clr Calc Pharmacy 43.2 ml/min; Est GFR (African American) 41.8; Est GFR (Non-African American) 36.1
[2020-10-03 06:46] LABS: Albumin Globulin Ratio 0.7 (0.9-2); Bilirubin,Total 1.1 mg/dl (0.2-1); Globulin 3.8 gm/dl (2.5-4.0); Total Protein 6.4 gm/dl (6.4-8.2)
[2020-10-03] MEDS: PANTOprazole 40 MG in SYRINGE 0 ML IV SCH (08:28)
[2020-10-03] MEDS: POTASSIUM CHLORIDE CRTAB 20 MEQ TABCR PO SCH ×2 (08:28→20:14)
[2020-10-03] MEDS: ROSUVASTATIN CALCIUM 20 MG TAB PO SCH (08:28)
[2020-10-03] MEDS: hydrALAZINE HCL 25 MG TAB PO SCH ×3 (08:29→20:15)
[2020-10-03] MEDS: MAGNESIUM CHLORIDE 64MG DELAYED REL TAB PO SCH ×3 (08:29→20:13)
[2020-10-03] MEDS: CHOLECALCIFEROL 1,000 UNITS 25 MCG TAB PO SCH (08:29)
[2020-10-03] MEDS: METOPROLOL SUCC 25MG EXT REL TAB PO SCH (08:29)
[2020-10-03] MEDS: allopurinoL 100 MG TAB PO SCH (08:29)
[2020-10-03] MEDS: INSULIN DETEMIR FLEXPEN/FLEX TOUCH 100 UNITS/ML 3ML SQ SCH (08:30)
[2020-10-03] MEDS: INSULIN ASPART 100 UNITS/ML 3 ML PEN SC SCH ×4 (08:31→21:01)
[2020-10-03] MEDS: FUROSEMIDE 20 MG TAB PO SCH (08:34)
[2020-10-03] MEDS: ACETAMINOPHEN 500 MG TAB PO PRN (08:34)
[2020-10-03] MEDS: DICLOFENAC SOD 1% GEL 100 GM TUBE EXT PRN (10:35)
[2020-10-03 11:27] LABS: Folate (Folic Acid) 8.69 ng/ml (>5.38)
--- NOTE | 2020-10-03 11:50 | Hospitalist Progress Note ---
Date of Service October 03, 2020 Assessment & Plan (1) Acute on chronic right-sided congestive heart failure: Will continue to diurese. Give additional IV lasix this afternoon. Dry weight is uncertain. Repeat BMP am. Continue metoprolol. (2) Anemia: acute/chronic. some element of acute blood loss anemia is possible given the heme+ stool. agree with GI she is too high-risk for endoscopic evaluation however. s/p 2 units PRBCs this admission. cont PPI - make oral today. check retic in am. give additional venofer 200mg x 1 (she received 3 doses earlier this stay). b12/folate wnl today. (3) Atrial fibrillation: rates controlled. eliquis on hold 2nd to heme+ stool and anemia. cont BB. (4) CAD (coronary artery disease): no ischemic symptoms at this time. cont beta jody. cont statin. (5) CKD (chronic kidney disease), stage III: Cr stable at 1.4. repeat BMP am. (6) Diabetes mellitus: control acceptable at this time. cont basal-bolus regimen. (7) Gout: no flares. cont allopurinol prophy. (8) Hypertension: controlled with current meds. (9) NICOLETTE (iron deficiency anemia): trans-sat <20%. s/p 3 runs of venofer earlier this admission. will give additional run today of 200mg. check retic in am. b12/folate wnl. (10) Neurogenic bladder: suprapubic catheter in place. 2nd to thoracic spine tumor. 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 s/p surgery at [facility] [place]. (12) RLS (restless legs syndrome): already on large dose of ropinirole 5mg qid. can trial baclofen 2.5mg BID. 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 looks traumatic in nature in setting of eliquis use. elevate. heat. (15) Morbid obesity with BMI of 40.0-44.9, adult: BMI 42 (16) DVT prophylaxis: SCDs chemical means on hold due to anemia, heme+ stools, etc progressing slowly Admission and Anticipated Discharge Date Admission Date: September 24, 2020 Subjective tele overnight with rate-controlled a.fib. she states she has had "jumpy" uncomfortable legs which makes her breathing worse (?). the leg issues are chronic but worse as of late. she denies cough. she feels that she has had significant improvement in her fluid retention but thinks there is still more. she is uncertain of her dry weight. has suprapubic catheter and it is due to be changed soon [place] [facility] [place] [facility]. she c/o right arm swelling and bruising but denies trauma/injury/fall. Review of Systems Constitutional: no fever and no chills Respiratory: no cough Cardiovascular: no chest pain, no dyspnea at rest and no orthopnea Gastrointestinal: no abdominal pain, no nausea and no vomiting Physical Exam Constitutional: + morbidly obese; no acute distress and no altered mental status ENMT: external ear and nose normal, oropharynx normal Respiratory: Auscultation: + crackles (fine, bases b/l ) Cardiovascular: Rate/Rhythm: regular rate and + irregularly irregular Heart Sounds: normal S1, normal S2 and + murmur (2/6 LLSB ) Vessels: + JVD, posterior tibial pulses present and dorsalis pedis pulses present Extremities: + edema (3+ b/l to the knees) Gastrointestinal (Abdomen): normal bowel sounds, soft, nontender, no hepatosplenomegaly Inspection/Auscultation: + abdomen distended suprapubic catheter in place midline lower abdomen Skin: bruising/ecchymoses right upper arm with generalized swelling tracking to the forearm Neurologic: involuntary flexor movements of right leg noted during the visit; she does have fairly good strength, about 4/5, b/l legs Psychiatric: A+Ox3, euthymic affect Results & Data Results & Data ([facility]) Vital Signs (Past 12 Hours) Vital Signs Temp Pulse Resp BP BP Pulse Ox 10/03/20 11:01 36.8 C 68 16 102/60 91 10/03/20 07:27 36.0 C L 65 16 121/73 92 10/03/20 03:27 36.6 C 71 18 122/72 92 Laboratory Results Laboratory Results - last 24 hr 10/02/20 10/02/20 10/02/20 11:40 16:33 20:21 WBC RBC Hgb Hct MCV MCH MCHC RDW Std Deviation RDW Coeff of Lelo Plt Count MPV Immature Gran % (Auto) Neut % (Auto) Lymph % (Auto) [place] % (Auto) Eos % (Auto) Baso % (Auto) Neut # (Auto) Lymph # (Auto) [place] # (Auto) Eos # (Auto) Baso # (Auto) Immature Gran # (Auto) Sodium Potassium Chloride Carbon Dioxide Anion Gap BUN Creatinine Est Cr Clr Drug Dosing Est GFR ( Amer) Est GFR (Non-Af Amer) BUN/Creatinine Ratio Glucose POC Glucose 161 H 170 H 150 H Calcium Total Bilirubin AST ALT Alkaline Phosphatase Total Protein Albumin Globulin Albumin/Globulin Ratio Vitamin B12 Folate 10/03/20 10/03/20 10/03/20 05:46 05:46 07:20 WBC 5.39 RBC 3.02 L Hgb 8.3 L Hct 27.6 L MCV 91.4 MCH 27.5 MCHC 30.1 L RDW Std Deviation 61.2 H RDW Coeff of Lelo 18.3 H Plt Count 185 MPV 8.3 Immature Gran % (Auto) 0.2 Neut % (Auto) 79.2 Lymph % (Auto) 10.4 [place] % (Auto) 7.8 Eos % (Auto) 2.0 Baso % (Auto) 0.4 Neut # (Auto) 4.27 Lymph # (Auto) 0.56 L [place] # (Auto) 0.42 Eos # (Auto) 0.11 Baso # (Auto) 0.02 Immature Gran # (Auto) 0.01 Sodium 138 Potassium 4.0 Chloride 104 Carbon Dioxide 29 Anion Gap 5.0 BUN 49 H Creatinine 1.41 H Est Cr Clr Drug Dosing 43.2 Est GFR ( Amer) 41.8 Est GFR (Non-Af Amer) 36.1 BUN/Creatinine Ratio 34.5 H Glucose 95 POC Glucose 105 H Calcium 8.7 Total Bilirubin 1.1 H AST 51 H ALT 33 Alkaline Phosphatase 90 Total Protein 6.4 Albumin 2.6 L Globulin 3.8 Albumin/Globulin Ratio 0.7 L Vitamin B12 Folate 10/03/20 09:00 WBC RBC Hgb Hct MCV MCH MCHC RDW Std Deviation RDW Coeff of Lelo Plt Count MPV Immature Gran % (Auto) Neut % (Auto) Lymph % (Auto) [place] % (Auto) Eos % (Auto) Baso % (Auto) Neut # (Auto) Lymph # (Auto) [place] # (Auto) Eos # (Auto) Baso # (Auto) Immature Gran # (Auto) Sodium Potassium Chloride Carbon Dioxide Anion Gap BUN Creatinine Est Cr Clr Drug Dosing Est GFR ( Amer) Est GFR (Non-Af Amer) BUN/Creatinine Ratio Glucose POC Glucose Calcium Total Bilirubin AST ALT Alkaline Phosphatase Total Protein Albumin Globulin Albumin/Globulin Ratio Vitamin B12 665 Folate 8.69 PG Care Time/CCT Total # of Minutes Spent Total Time Spent with Patient: Total time spent is greater than 50% in coordination of care (as documented) at patient's floor/unit and/or counseling patient: Coding Level of Care Code 33846 Subseq Hosp Care Lvl 3 Diagnoses Acute on chronic right-sided congestive heart failure I50.813 Anemia D64.9 Atrial fibrillation I48.91 CAD (coronary artery disease) I25.10 CKD (chronic kidney disease), stage III N18.3 Diabetes mellitus E11.9 Gout M10.9 Hypertension I10 NICOLETTE (iron deficiency anemia) D50.9 Neurogenic bladder N31.9 Paraplegia G82.20 RLS (restless legs syndrome) G25.81 Thoracic intradural extramedullary tumor D49.7 Swelling of right upper extremity M79.89 Morbid obesity with BMI of 40.0-44.9, adult E66.01; Z68.41 DVT prophylaxis Z29.9
[2020-10-03] MEDS ORDERED: IRON SUCROSE 200 MG in 0.9 % SODIUM CHLORIDE 100 ML IV ONE (12:15)
[2020-10-03] MEDS: BACLOFEN 10 MG TAB PO SCH ×2 (12:19→20:19)
--- NOTE | 2020-10-03 12:37 | Pharmacy Report ---
Pharmacy Glycemic Short Note 2 - Date of Service October 03, 2020 - Glycemic Short BSG Results (Last 24 hours): 10/02/20 10/02/20 10/03/20 16:33 20:21 05:46 Glucose 95 POC Glucose 170 H 150 H 10/03/20 10/03/20 07:20 11:57 Glucose POC Glucose 105 H 148 H OUTPATIENT ANTIDIABETIC REGIMEN: * Levemir 22 units SQ BID * Novolog 5 units SQ QID + SSI * HbA1c: 6.1% (09/25/20) ASSESSMENT: 10/03 * Stressors stable * Patient has received Levemir 12 units qAM and 20 units qPM x5 days. AM fasting BSG stable and in goal range. Will schedule as such instead of having BSG scale * Post-prandial BSG's well controlled - no change to Novolog 09/30: * Patient received total 52 units of insulin yesterday: 32 units basal (12 units in AM and 20 units at HS) + 20 units bolus * Fasting BSGs have been at goal these last few days. Will continue current dosing of basal Levemir. * Post-prandial BSGs have been in range as well. Continuing current Novolog parameters. 09/26/20: * Ms Ramires received 50 units of insulin yesterday. * Basal: 30 units * Prandial/correctional: 20 units * Several BSGs have been below goal range, with an episode of hypoglycemia (BSG 65mg/dL) this morning. * Basal insulin scale was reduced this morning and Novolog parameters were loosened. 09/24 * 75 year old female admitted with symptoms of heart failure. Type 2 diabetic managed on insulin at home * Patient follows with [facility] for diabetes management. Per notes, patient adjusts bolus insulin based upon BSG value * Plan to continue home Levemir dosing / add correctional insulin based upon stress of 2/3 dosing PLAN FOR INPATIENT GLYCEMIC CONTROL: * Basal insulin: continue * Levemir 12 units qAM and 20 units qPM * Bolus insulin: continue * NovoLog per scale ACHS or Q6hrs while NPO * Goal Range: Low 110 mg/dL - High 140 mg/dL * Correction Factor: 25 mg/dL/unit * Nutritional / Prandial insulin per carb ratio of 1 unit per 7 grams CHO consumed PLAN FOR DISCHARGE: * A1c: 6.1% * Expect that pt may resume home regimen on discharge, as long as she does not report having episodes of hypoglycemia. * Patient follows with [facility] for diabetes management.
[2020-10-03] MEDS ORDERED: FUROSEMIDE 40 MG in SYRINGE 0 ML IV ONE (14:00)
[2020-10-03] MEDS: AMITRIPTYLINE HCL 50 MG TAB PO SCH (20:15)
[2020-10-03] MEDS ORDERED: INSULIN DETEMIR FLEXPEN/FLEX TOUCH 100 UNITS/ML 3ML SQ SCH (21:00)
[2020-10-03] MEDS: PANTOprazole 40 MG TAB PO SCH (21:01)
[2020-10-04 07:41] VITALS: TEMP 98.1
[2020-10-04] MEDS: INSULIN ASPART 100 UNITS/ML 3 ML PEN SC SCH ×2 (08:16→13:47)
[2020-10-04] MEDS: allopurinoL 100 MG TAB PO SCH (08:17)
[2020-10-04] MEDS: hydrALAZINE HCL 25 MG TAB PO SCH (08:17)
[2020-10-04] MEDS: BACLOFEN 10 MG TAB PO SCH (08:17)
[2020-10-04] MEDS: PANTOprazole 40 MG TAB PO SCH (08:17)
[2020-10-04] MEDS: MAGNESIUM CHLORIDE 64MG DELAYED REL TAB PO SCH (08:18)
[2020-10-04] MEDS: FUROSEMIDE 20 MG TAB PO SCH (08:18)
[2020-10-04] MEDS: ROSUVASTATIN CALCIUM 20 MG TAB PO SCH (08:18)
[2020-10-04] MEDS: METOPROLOL SUCC 25MG EXT REL TAB PO SCH (08:18)
[2020-10-04] MEDS: POTASSIUM CHLORIDE CRTAB 20 MEQ TABCR PO SCH (08:18)
[2020-10-04] MEDS: CHOLECALCIFEROL 1,000 UNITS 25 MCG TAB PO SCH (08:18)
[2020-10-04 08:34] LABS: Hematocrit (blood only) 27.8 % (37-47); Hemoglobin 8.3 g/dL (12.0-16.0); Reticulocyte % 3.8 % (0.5-2.0); Reticulocytes # 0.12 10^6/uL (0.02-0.10)
[2020-10-04] MEDS ORDERED: INSULIN DETEMIR FLEXPEN/FLEX TOUCH 100 UNITS/ML 3ML SQ SCH (09:00)
[2020-10-04 09:04] LABS: BUN Creatinine Ratio 31.8 (10-20); Calcium 9.1 mg/dl (8.5-10.1); Creatinine Clr Calc Pharmacy 43.8 ml/min; Est GFR (African American) 42.2; Est GFR (Non-African American) 36.4; Potassium 4.2 mmol/L (3.5-5.1)
--- NOTE | 2020-10-04 11:28 | Heart Failure Progress Note ---
Date of Service October 04, 2020 Assessment & Plan (1) Pulmonary hypertension: (2) Tricuspid regurgitation: (3) Wheelchair dependent: (4) Atrial fibrillation: (5) CAD (coronary artery disease): (6) Congestive heart failure with right ventricular systolic dysfunction: (7) Obesity (BMI 30-39.9): (8) Hypertension: Patient is likely near euvolemic on exam. She continues to have significant lower extremity edema which is likely stable and chronic due to her RV failure. Continue wound care for ulceration. She is non ambulatory so exertional symptoms are difficult to assess. Symptoms and echocardiogram are consistent with RV systolic failure secondary to noncompliance with her CPAP. Anemia may also be contributing factor. She has had multiple iron infusions and GI is following. She is responding well to Lasix 40 mg IV BID (negative >13 L). Would consider discharging on Lasix 80 mg in am/40 mg in pm. Continue to monitor kidney function and electrolytes. Repeat outpatient labs prior to follow up. Replete potassium as needed. Continue to monitor strict I&Os. She is unable to do standing weights. Continue low sodium diet, less than 2,000 mg daily. Encourage CPAP compliance. Discussed the heart failure program and she is agreeable to participation. Will plan outpatient follow up within 7 days of discharge. Disposition: Will continue to follow during hospitalization. She's been scheduled for heart failure follow up 10/07 at 11:00am. Admission and Anticipated Discharge Date Admission Date: September 24, 2020 Subjective Patient reports she's feeling well today. Her breathing is improved. She slept well last night. She feels that her lower extremity edema is improving as well. She has been diuresing very well on her current dose for a total of - 13 L this admission. Her weights have been by bed scale and have been quite variable/unreliable. She denies chest pain, wheezing, lightheadedness, or cough. Physical Exam Physical Exam: Constitutional: Alert, oriented, in no acute distress HEENT: Head is atraumatic and normocephalic. EOMs intact. Sclera anicteric. Face is symmetric. No perioral cyanosis. Mucous membranes moist. Neck: Supple, no JVD Pulmonary: Normal respiratory effort, clear to auscultation bilaterally, decreased slightly at bases. Cardiac: Irregular rate and rhythm. Normal S1 and S2, no gallops, no rubs, no murmurs Extremities: 2+ radial pulses bilaterally. 2+ posterior tibialis pulses bilaterally. 2+ pitting edema to the knees. Tubigrip BLE. No cyanosis or clubbing. Abdomen: Normal bowel sounds, soft, non-tender, no abdominal mass palpated Skin: Normal skin color, turgor, and pigmentation, no rash, no skin lesions Neurological: Patient is awake, alert, and oriented. Pleasant and cooperative. Answers questions appropriately. Speech is clear. Results & Data ([facility]) Vital Signs (Past 12 Hours) Vital Signs Temp Pulse Pulse Resp BP BP Pulse Ox 10/04/20 07:40 98.1 F 68 18 110/67 92 10/04/20 04:02 98.2 F 93 H 18 116/62 93 10/04/20 00:42 64 PG Care Time/CCT Total # of Minutes Spent Total Time Spent with Patient: Total time spent is greater than 50% in coordination of care (as documented) at patient's floor/unit and/or counseling patient: Coding Level of Care Code 64469 Subseq Hosp Care Lvl 3 Diagnoses Pulmonary hypertension I27.20 Tricuspid regurgitation I07.1 Wheelchair dependent Z99.3 Atrial fibrillation I48.91 CAD (coronary artery disease) I25.10 Congestive heart failure with right ventricular systolic dysfunction I50.82; I50.20 Obesity (BMI 30-39.9) E66.9 Hypertension I10
[2020-10-04 11:33] VITALS: BP 118/55; PULSE 71; O2SAT 95
--- NOTE | 2020-10-04 12:08 | Discharge Summary ---
Date of Service date of admission - September 24, 2020 date of discharge - October 04, 2020 Admission HPI Per Admitting Provider 75-year-old female recently in our emergency department with complaints of lower extremity swelling. Reported was given additional doses of Lasix. Then accord ing to the patient her primary care provider did not want her to continue on additional doses of Lasix. Patient feels she is a significant weight gain. Reports to be noncompliant with her CPAP. The patient said no chest pain she is dyspneic but only likely with her increased effort of movement as she is a paraplegic using or lift at home. She has prehospital lower extremity wounds for which she sees wound care particularly left heel wound. She complains of having some orthopnea. Patient's body weight is about 10 pounds at least over her most recent dry weight loss echocardiogram that showed preserved ejection fraction making this diastolic heart failure or heart failure preserved ejection fraction. Will be made for diuresis enrollment in the heart failure clinic reinforcing use of her noninvasive positive pressure ventilation Principal Diagnosis acute/chronic right-sided congestive heart failure Discharge Exam Constitutional + morbidly obese; no acute distress and no altered mental status ENMT external ear and nose normal, oropharynx normal Respiratory Auscultation: + crackles (fine, bases b/l - improved from prior exam) Cardiovascular Rate/Rhythm: regular rate and + irregularly irregular Heart Sounds: normal S1, normal S2 and + murmur (2/6 LLSB ) Vessels: + JVD (improved from previous exam), posterior tibial pulses present and dorsalis pedis pulses present Extremities: + edema (2+ b/l to the knees) Gastrointestinal (Abdomen) normal bowel sounds, soft, nontender, no hepatosplenomegaly Skin ecchymoses of right upper arm, mild-moderate generalized swelling of biceps/triceps region Psychiatric A+Ox3, euthymic affect Discharge Data Allergies Allergy/AdvReac Type Severity Reaction Status Date / Time metoclopramide [From Reglan] Allergy Mild "went Verified 10/07/20 11:27 crazy" NSAIDS (Non-Steroidal Allergy Unknown UNK? Verified 10/07/20 11:27 Anti-Inflamma DENIES SOB. capsaicin AdvReac Severe SHORTNESS Verified 10/07/20 11:27 OF BREATH diclofenac AdvReac Severe SHORTNESS Verified 10/07/20 11:27 OF BREATH [place] AdvReac Severe SHORTNESS Verified 07/24/18 10:57 OF BREATH Consultations 1. CHF Program Referral 2. [facility] 3. PT, OT Procedures Performed 1. PRBCs x 2 units 2. echocardiogram: * EF 50-55% * NO regional wall motion abnormalities * septal motion consistent with bundle branch block * septal flattening during diastole suggests RV volume overload * moderate LVH * normal right ventricular size with moderate-severely reduced systolic function * severe left atrial dilation * mild aortic stenosis * mild mitral regurgitation * mild-moderate tricuspid regurgitation * moderate pulmonary HTN; RVSP 58 mmHg Ordered Studies 09/26/20 22:10 US venous doppler UE RT - no DVT. 09/27/20 14:00 US extremity nonvascular - IMPRESSION: 1. 8 x 7 x 2 mm superficial lesion, likely of dermal adnexal origin 2. Multiple small hypoechoic nodules in the subcutaneous fat, possibly representing areas of fat necrosis. Hospital Course (1) Acute on chronic right-sided congestive heart failure: Received IV diuresis most of her stay. Dry weight is uncertain. Unfortunately, due to inability to stand, bedscale weights were used to track her daily weight. Echocardiogram was repeated (see above for details) during the admission and was largely unchanged from prior echo. Most importantly she has mod-severe right ventricular systolic dysfunction. She was continued on her metoprolol throughout the stay. She was seen in consult by the [facility] team. She will have follow-up with them within a few days of discharge. Diuretic regimen at discharge - * lasix 80mg qam * lasix 40mg qafternoon (2) Anemia: Acute/chronic. Some element of acute blood loss anemia was suspected given her heme+ stool. She was seen by [facility] and it was felt that she was too high-risk for endoscopic evaluation. Her apixaban was placed ON HOLD due to the heme+ stool and severe anemia. She received IV PPI and ultimately transitioned to pantoprazole 40mg BID. Lowest Hb level was 6.6; she received 2 units PRBCs for such. Discharge Hb level was 8.3. Hemoglobin was at this level for 4 days prior to discharge suggesting no ongoing GI bleeding. Retic count was mildly elevated prior to discharge suggesting adequate iron, b12, folate stores for bone marrow production. She did receive a total of 4 doses of IV venofer while here. B12/folate levels were normal. Patient was asked to HOLD her apixaban and have her CBC repeated in 3-4 days. If hemoglobin remains stable can consider resuming apixaban at that time. (3) Atrial fibrillation: Rates controlled throughout her stay. Audi was placed on hold 2nd to heme+ stool and severe anemia. See above re: plan for anticoagulation. Continue metoprolol as previous. (4) CAD (coronary artery disease): No ischemic symptoms during this stay. Remains on beta jody and statin. (5) CKD (chronic kidney disease), stage III: Cr stable at 1.3 to 1.4 the entire stay. (6) Diabetes mellitus: Control acceptable with basal-bolus insulin regimen while here. She will resume her normal insulin regimen upon discharge. Hba1c was 6.1% in September 2020. (7) Gout: No flares during the visit; continue allopurinol prophylaxis. (8) Hypertension: Controlled with usual medications. (9) NICOLETTE (iron deficiency anemia): Transferrin-sat <20%. Ferritin 93. s/p 4 runs in total of IV venofer this admission. Retic count 3.8% suggesting adequate iron, b12, and folate stores at this time. Stool indeed was heme + but she is a very poor candidate for endoscopic evaluation due to morbid obesity, severe right-sided CHF, etc. Apixaban on hold during the stay and at discharge. Will need repeat CBC within 3-4 days of discharge to ensure stability. (10) Neurogenic bladder: Suprapubic catheter in place. 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 s/p surgery at [facility] 01/2020. (12) RLS (restless legs syndrome): Ropinirole 5mg qid. 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 (14) Swelling of right upper extremity: no DVT on doppler study. no abscess on ultrasound. looks traumatic in nature. bruising slowly improved while here. continue elevation & heat at discharge. (15) Morbid obesity with BMI of 40.0-44.9, adult: BMI 42 Total Time Total Time Spent Total Time Spent (In Minutes): 45 Total Time Includes: Examination of the Patient, Discharge Planning, Medication Reconciliation and Communication With Other Providers Discharge Plan Discharge Items Patient Disposition: Home - Home Health Services Reason For Visit: Fluid retention from congestive heart failure Discharge Diagnosis: 1. fluid retention from congestive heart failure - improved 2. anemia - likely due to iron deficiency from gastrointestinal blood loss * 2 units of blood given * multiple doses of IV iron given * discharge hemoglobin level 8.3 3. blood in stool 4. bruising of right arm Activity: Resume your previous activity Non-emergency contact: Primary Care Provider and Duplicating Machine Mechanic Call non-emergency contact if: you have any medication questions, your symptoms worsen and you have a fever Follow-up/Referrals: Jaquelin Crowley MD [Primary Care Provider] - 10/06/20 2:15 pm (see Dr Díaz in 1-2 weeks) Melania French PA-C [Physician Math Interventionist] - 10/07/20 11:00 am (Congestive Heart Failure Program Appointment Information Early follow up is essential to managing your heart failure. An appointment has been scheduled for you with the [facility] Heart Failure Program within 7 days of discharge. Anticipate this visit to be 30-60 minutes long. Please expect a clay thrower phone call from one of our nurses approximately 48 hours from discharge. They will also be placing an order for lab work to be completed 1-2 days prior to your heart failure follow up appointment. Please be sure to have this done so we can go over the results when you come in. Office Location The cardiology office building is located in front of the hospital at [address] [facility]. Bring the following with you to your follow-up doctor appointments: Please bring your daily weight log any discharge paperwork all of your medication bottles with you to this visit. ) Diet: Carb Consistent or DM2 and Low Sodium (2gm) Fluids: 1800ml (7 cups) Addtl Attending Provider Instructions: You were treated for fluid retention from your congestive heart failure with IV diuretics throughout your stay. We also treated your anemia (low red blood cells) with blood transfusion x 2 units and multiple doses of IV iron. The clod puller saw you in consult as we found traces of blood in your stool. They put you on acid reducers (pantoprazole) and we held your eliquis as blood thinners will often cause gastrointestinal bleeding. Following your blood transfusion your blood count stayed between 8 and 8.5 for 4 days straight. Unfortunately we were not able to perform endoscopy to find the cause of the bleeding in your GI tract. Performing an EGD or colonoscopy (camera test to look at your esophagus/stomach and colon, respectively) would be more risky than others because of your heart disease and other medical problems. Recommendations - 1. HOLD YOUR ELIQUIS until you see Ms French in the CHF clinic. We can recheck your blood count then and if your counts are stable we can hopefully resume the eliquis then. 2. START pantoprazole acid pet caregiver 40mg twice daily every day. New prescription sent to your pharmacy for you. 3. INCREASE your lasix (furosemide) to 80mg EVERY AM. Leave your afternoon dose at 40mg. Start the larger dose of lasix tomorrow on 10/05/20. 4. Limit TOTAL fluid intake over a 24-hour period to about 1800cc (this is just shy of 2 liters a day of fluid). 5. Limit salt intake to no more than 2000mg (2 grams) in a 24-hour period. 6. LOWER your hydralazine to 25mg three times a day. You previously took 50mg three times a day. 7. If you have severe muscle spasms or restless legs during the day time you can take baclofen 2.5mg x 1 in the morning. Just do this NEEDED. 8. Get your flu shot soon. 9. Social distance and keep wearing your mask when leaving your home. 10. AVOID motrin, ibuprofen, naprosyn, alleve, aspirin. 11. For your right arm - please elevate on pillows for the next 3-5 days, and use warm compresses/heat to the upper arm as needed. This will speed up resolution of the bruising and help with any discomfort. Follow-up - see separate section Return to [facility] if - * you have fever over 100 degrees * you have worsening shortness of breath * you have bright red blood in your stool or dark, black stools * you have severe abdominal pain * any other concerns Addtl Financial Management Consultant Provider Instructions: Call your Primary Care doctor or supervisor core shop if any of the following symptoms or problems start or get worse: * Shortness of breath or difficulty breathing * Wake up at night short of breath * Chest pain * Cough * Swelling of your hands, feet, or legs * More fatigued or tired with your normal activity * Palpitations - sudden fast heart beats WEIGHT * Weigh yourself every morning after using the bathroom - if possible. * Use the same scale. * Wear the same amount of clothing. * Write your weight down on a chart. * Call your Primary Care doctor or supervisor core shop if you gain more than 2-3 pounds in 1-2 days. MEDICATIONS * Use this discharge instruction sheet for medication instructions. * Take your medications at the time your doctor ordered. * Do not skip a dose of your medicines. * If you miss a dose of medicine, take it as soon as possible, but DO NOT DOUBLE A DOSE. * Read your medicine information when you get home. * Know all of the side effects of your medicine. If in doubt, ask your pharmacist * Call your Primary Care doctor's office if you have any side effects. * Be sure all of your doctors know what medicine and herbs you take (including cold, flu, and herbal medicine). Take the following with you to your follow-up doctor appointments: * Weight Chart * Medication List * List of questions Do not drink excessive alcohol, beer or wine. Pending Studies at Discharge: No Stand-Alone Forms: My [facility], Smoking Cessation Medications and DC Order Prescriptions: New pantoprazole 40 mg Tablet,Delayed Release (Dr/Ec) 40 mg PO BID Qty: 60 RF: 2 Continued (DME) insulin syringe-needle U-100 [[place] Fiber Insulin Syringe] 1 mL 30 gauge x 5/16 syringe See Dose Instructions .ROUTE .MEDSUPPLY Qty: 300 RF: 5 amitriptyline 50 mg tablet 50 mg PO HS Qty: 90 RF: 3 metoprolol succinate 25 mg tablet extended release 24 hr 25 mg PO DAILY Qty: 90 RF: 1 allopurinol [Zyloprim] 100 mg tablet 100 mg PO QAM Qty: 90 RF: 1 ferrous sulfate 325 mg (65 mg iron) tablet 325 mg PO BID Qty: 180 RF: 3 (DME) lancets [BD Ultra Fine Lancets] 33 gauge misc See Rx Instructions .ROUTE .MEDSUPPLY Qty: 200 RF: 5 (DME) blood-glucose meter [True Metrix Glucose Meter] Misc See Rx Instructions .ROUTE .MEDSUPPLY Qty: 1 RF: 0 (DME) True Metrix Glucose Test Strip Strip See Rx Instructions .ROUTE .MEDSUPPLY Qty: 200 RF: 5 rosuvastatin [Crestor] 40 mg tablet 40 mg PO DAILY Qty: 90 RF: 3 ropinirole 5 mg tablet 5 mg PO QID Qty: 270 RF: 3 Levemir FlexTouch U-100 Insuln 100 unit/mL (3 mL) insulin pen 22 unit subcut BID RF: 0 acetaminophen 325 mg capsule 650 mg PO BID MDD 10 tabs PRN (Reason: pain (scale score 4-6)) RF: 0 magnesium chloride 64 mg tablet,delayed release (DR/EC) 64 mg PO TID RF: 0 cholecalciferol (vitamin D3) 125 mcg (5,000 unit) capsule 125 mcg PO QAM RF: 0 insulin aspart U-100 [Novolog U-100 Insulin aspart] 100 unit/mL solution 5 units SQ QID RF: 0 Changed hydralazine 50 mg tablet 25 mg PO TID Qty: 270 RF: 1 Discontinued Eliquis 5 mg tablet 5 mg PO BID Qty: 180 RF: 3 furosemide [Lasix] 40 mg tablet 60 mg PO QAM RF: 0 No Action Eliquis 5 mg tablet 5 mg PO BID RF: 0 Hold Instructions: per hospital visit furosemide [Lasix] 40 mg tablet 80 mg PO BID Qty: 0 RF: 0 nitroglycerin [Nitrostat] 0.4 mg tablet, sublingual 0.4 mg SL UD PRN (Reason: Chest Pain) Qty: 25 RF: 0 potassium chloride 20 mEq tablet extended release 20 meq PO BID Qty: 60 RF: 1 lidocaine 4 % adhesive patch,medicated 1 patch topical DAILY PRN (Reason: Pain) RF: 0 albuterol sulfate [Ventolin HFA] 90 mcg/actuation HFA aerosol inhaler 1 - 2 inh inhalation UD PRN (Reason: shortness of breath) RF: 0 baclofen 10 mg tablet 5 mg PO HS RF: 0 Discharge Orders: Discharge Order (Routine); Ordered 10/04/20 Ordered By: Galdino Trujillo/Other Patient Handouts: Managing Type 2 Diabetes Admission Data Admit Date/Time: 09/24/20 12:12 Attending Provider: Galdino Medina Admit Provider: Jaime Rodrigues Primary Care Provider: Jaquelin Crowley V. Other Providers: Melania French ; Tai Kam ; Nahun Mosher Other Interventions: Discharge Summary Assessment (RN) Last Done: 10/04/20 12:57 Coding Level of Care Code D/C Day Management >30 mins Diagnoses Acute on chronic right-sided congestive heart failure I50.813 Anemia D64.9 Atrial fibrillation I48.91 CAD (coronary artery disease) I25.10 CKD (chronic kidney disease), stage III N18.3 Diabetes mellitus E11.9 Gout M10.9 Hypertension I10 NICOLETTE (iron deficiency anemia) D50.9 Neurogenic bladder N31.9 Paraplegia G82.20 RLS (restless legs syndrome) G25.81 Thoracic intradural extramedullary tumor D49.7 Swelling of right upper extremity M79.89 Morbid obesity with BMI of 40.0-44.9, adult E66.01; Z68.41
== END 2020-10-04 13:50 | disposition home health service (06) | DRG 291 ==
LOC: ED 09:37 → SUATTDRO 12:00 → 2N 12:00 → SUATTDRO 12:12 → 2N 13:06

== ENCOUNTER 2020-10-07 17:27 | Inpatient (IN) ==
--- NOTE | 2020-10-07 17:40 | Emergency Department Note ---
Impression & Plan Acute hypoxemic respiratory failure, Acute UTI (urinary tract infection), Bronchitis, Fever ED Provider Note NAME: MERCED SESAY AGE: 75 SEX: F : 1945 ARRIVES VIA: Ambulance INFORMANT: Patient, ED PROVIDER(S): Aaron Pierre MD Chief Complaint: Shortness of breath HPI: Patient does present with worsening shortness of breath. The patient did present with a low-grade temperature. The patient states that she has had a cough but feels as though she could cough something up but she has not brought anything up. The patient was hypoxic at 88% on room air on arrival. The patient does have a known history of CHF and pulmonary hypertension. Patient states that she was recently changed to Lasix 80 mg twice daily. The patient believes that she has had worsening weight gain and lower extremity swelling. Patient denies any chest pains or nausea or vomiting. The patient states that sitting up does improve her discomfort laying back makes it worse. Patient does presents with worsening shortness of breath. The patient did have a recent admission from 1023 to October 04. Patient does have history of right- sided CHF who did receive IV diuretics during her stay. Patient does have an acute on chronic GI bleed however too high risk for endoscopic evaluation at this time. The patient did receive 2 units of PRBCs. The patient was seen in the outpatient setting by Melania French PA-C. Patient does have CHF and thought to be related to medication and CPAP nonadherence. Was not taking her prescribed Lasix on discharge. BNP is elevated to 7000. ROS: See HPI for pertinent positives and negatives. A total of 10 systems were reviewed and otherwise negative. Past medical history: See below Surgical history: See below Social history: See below Physical Exam: GENERAL: Mildly ill but nontoxic in appearance, wearing glasses and a mask. Nasal cannula in place. EYE EXAM: Normal conjunctiva. PERRL, no anisocoria and EOM's grossly intact w/o pain. NECK: Supple, no nuchal rigidity, no adenopathy, non-tender. No signs of meningismus. LUNGS: Crackles bilaterally. HEART: Irregularly irregular, no MRG. ABDOMEN: Abdomen soft, non-tender, normo-active bowel sounds, no masses, no re bound or guarding. BACK: No CVA TTP. SKIN: No rashes and no bruising. UPPER EXTREMITIES: Upper extremities are grossly normal. LOWER EXTREMITIES: Grossly normal, bilateral lower extremity edema noted. NEURO EXAM: A&O x3, cranial nerves II-XII grossly intact, normal speech, symmetric strength in upper extremities. Symmetric weakness bilateral lower extremities. Differential diagnoses: Reactive airway disease, pneumonia, pneumothorax, COPD, CHF, infections, cardiac ischemia, pulmonary embolism, musculoskeletal, gastrointestinal, as well as other pathologies. Course: Patient was seen and evaluated the bedside. Full history physical exam was performed. EKG: Location: Shortness of breath A. fib, ventricular rate of 74, wide QRS, left bundle branch block pattern. Imaging Studies: Radiology results as stated below per my review in the radiologist's interpretation: XR chest 1V portable CLINICAL HISTORY: SEPSIS COMPARISON STUDY: Chest CT August 04, 2020. Chest radiograph October 01, 2020. FINDINGS: Postoperative findings within the right lung are noted. There is marked cardiomegaly. This is unchanged. No pneumothorax or pleural effusion is noted. Mild interstitial thickening is noted. There is also mild right basilar opacity. IMPRESSION: 1. Interstitial thickening suggestive of mild pulmonary edema. 2. Mild right lower lung opacity which may reflect a superimposed infectious process or atelectasis. 3. Marked cardiomegaly, unchanged. ACT 112: Negative or not required by law. Electronically signed by: Dennis Hernadez M.D. 10/07/2020 6:35 PM Dictated: 10/07/201831Transcribed: 10/07/201831 Cardiac monitoring: An order was placed for continuous cardiac monitoring. The monitor shows a rate of 74 with irregularly irregular rhythm. MDM: Patient was seen due to concern for shortness of breath. The patient did have blood work completed along with chest x-ray and EKG. EKG unremarkable. The patient does avoid count of 11. Chronic and stable anemia at 8. Platelet count is unremarkable. Kidney function virtual baseline. Troponin detectable but not elevated. Procalcitonin elevated. Urinalysis does show the possibility of infection. Patient has had virtually pansensitive E. coli in the past. Zosyn was ordered. COVID-19 is negative. Chest x-ray does show enlarged heart with pulmonary edema possible infection. I did speak the on-call hospitalist Dr. Thomas MD. Patient was admitted to the medicine service. Critical Care: I have personally spent 42 minutes of critical care time in direct management of this patient. This includes bedside care, interpretation of diagnostic studies, and testing, discussion with consultants, patient, and family members, and other require inpatient management activities. This 42 minutes is in excess of all separately billable procedures. Past Med/Surg History Medical History Acute dehydration Acute osteomyelitis of toe of left foot Acute UTI (urinary tract infection) Anemia Aortic stenosis MILD-MOD per 08/2019 echo, but NO SIGNIFICANT STENOSIS noted on 10/12/19 echo. Atrial fibrillation On Eliquis CAD (coronary artery disease) s/p CABG x 2 in 2012. CAD has remained quiescent since then. Follows with Dr. Hernandez, who cleared the patient for lumbar surgery 07/2019. CHF (congestive heart failure) Appears euvolemic on exam at [facility] but unable to asses pedal edema due to b/l medical walking shoes for diabetic ulcers. EF 50-55% on most recent echo. Chronic kidney disease, stage 3 Clostridium difficile infection DX [facility] [place] 12/2018 @ [facility] [place]. Stool NEGATIVE 05/25/19. Diabetes mellitus, type 2 IDDM Diabetic foot ulcer associated with type 2 diabetes mellitus Following with wound clinic [facility]. DVT prophylaxis Dysphagia E. coli infect Encounter for immunization Encounter for monitoring diuretic therapy Fatty liver Gout Hypertension Hypoglycemia Indwelling Soto catheter present Lumbar spinal stenosis Severe at L4-5. 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 Lung cancer S/P RM lobectomy 2015, follows with Dr. Perkins. 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 Urinary tract infection Venous stasis ulcer of right lower leg with edema of right lower leg Surgical History Fusion of spine lumbar (07/2019) at [facility] [place] --- uneventful surgery/anesthesia and hospitalization, but patient developed subsequent LE paraplegia. 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 History of appendectomy History of bilateral knee replacement History of bronchoscopy History of cardiac cath 2012 - [facility] [place] - [place] - NO STENTS/ANGIOPLASTY -- > CABG History of cholecystectomy History of colonoscopy 11/2018 [facility] [place] History of esophagogastroduodenoscopy (EGD) 11/2018 [facility] [place] History of hysterectomy with oophorectomy KEARA with BSO History of lobectomy of lung RML History of ovarian cystectomy History of surgery Right VATS PROCEDURE History of tubal ligation Hx of CABG 2012 - - [place] - ESSEX - 2 VESSELS Family History Daughter Family history of diabetes mellitus Mother Heart disease Hypertension Myocardial infarction Father Hypertension Other Diabetes Denies family history of Ovarian cancer Prostate cancer Crohn's disease Breast cancer Colorectal cancer Ulcerative colitis Social History Smoking Status: Former smoker Tobacco Type: Cigarettes Years Smoked: 20; Cigarettes Per Day: 10; Number of Years Since Quit: 8; Second Hand Exposure: No; Hx Alcohol Use: No Hx Substance Use: No Preferred Language: Slovak Communication Ability: Effective Visual Impairment: No Limitations Hearing Ability: Normal Planimeter Operator Required: No Beliefs That Will Affect Care: None marital status: Current Living Situation: Spouse Current Living Situation Comment: Live with . current occupational status: retired Feels Safe at Home: Yes Childhood Exposure to Second-Hand Smoke: No Dental Care, Regularly: No Physical Activity Frequency: Does not Exercise Seatbelt Use: always Sunscreen Use: No Assistive Devices: Glasses Allergies Allergies Allergy/AdvReac Type Severity Reaction Status Date / Time metoclopramide [From Reglan] Allergy Mild "went Verified 10/07/20 11:27 crazy" NSAIDS (Non-Steroidal Allergy Unknown UNK? Verified 10/07/20 11:27 Anti-Inflamma DENIES SOB. capsaicin AdvReac Severe SHORTNESS Verified 10/07/20 11:27 OF BREATH diclofenac AdvReac Severe SHORTNESS Verified 10/07/20 11:27 OF BREATH Diclopak AdvReac Severe SHORTNESS Verified 07/24/18 10:57 OF BREATH Home Meds Home Medications Medication Instructions Recorded Confirmed magnesium chloride 64 mg 64 mg PO TID tab 06/02/19 10/07/20 (magnesium chloride) tablet,delayed release cholecalciferol (vitamin D3) 125 mcg PO QAM 04/16/20 10/07/20 acetaminophen 325 mg capsule 650 mg PO BID PRN cap MDD 10 tabs 04/22/20 10/07/20 insulin detemir U-100 100 unit/mL 22 unit SUBCUT BID ml 08/05/20 10/07/20 (3 mL) subcutaneous pen insulin aspart U-100 100 unit/mL 5 units SQ QID ml 09/02/20 10/07/20 subcutaneous solution apixaban 5 mg tablet 5 mg PO BID 10/05/20 10/07/20 albuterol sulfate 90 mcg/actuation 1 - 2 inh INHALATION UD PRN g 10/06/20 10/07/20 aerosol inhaler baclofen 10 mg tablet 5 mg PO HS tab 10/06/20 10/07/20 lidocaine 4 % topical patch 1 patch TOPICAL DAILY PRN 10/06/20 10/07/20 Previous Rx's Medication Instructions Recorded insulin syringe-needle U-100 1 mL #300 ea 07/15/19 30 gauge x 5/16" amitriptyline 50 mg tablet 50 mg PO HS #90 tab 10/16/19 metoprolol succinate 25 mg 25 mg PO DAILY #90 tab 05/19/20 tablet,extended release 24 hr allopurinol 100 mg tablet 100 mg PO QAM #90 tab 06/13/20 ferrous sulfate 325 mg (65 mg 325 mg PO BID #180 tab 07/13/20 iron) tablet ropinirole 5 mg tablet 5 mg PO QID #270 tab 07/20/20 rosuvastatin 40 mg tablet 40 mg PO DAILY #90 tab 07/20/20 BD Ultra Fine Lancets 33 gauge #200 ea NS 09/20/20 True Metrix Glucose Meter #1 ea NS 09/20/20 True Metrix Glucose Test Strip #200 ea NS 09/20/20 hydralazine 25 mg PO TID #270 tab 10/04/20 pantoprazole 40 mg PO BID #60 tab 10/04/20 furosemide 40 mg tablet 80 mg PO BID #0 tab 10/07/20 nitroglycerin 0.4 mg sublingual 0.4 mg SL UD PRN #25 tab 10/07/20 tablet potassium chloride 20 mEq 20 meq PO BID #60 tab 10/07/20 tablet,extended release Results & Data (ED) Vital Signs Vital Signs - 24 hr 10/07/20 17:37 10/07/20 17:39 10/07/20 17:40 Temperature 37.6 C H Temperature Source Oral Pulse Rate 90 86 89 Pulse Rate from SpO2 Sensor 92 H 86 Respiratory Rate 19 31 H 27 H Respiratory Effort / Characteristics Labored Respiratory Depth Shallow Respiratory Pattern Tachypnea Blood Pressure 152/74 H 152/74 H Blood Pressure Mean 100 100 Blood Pressure Position Sitting Pulse Oximetry 88 L 88 L 89 L Oxygen Delivery Method Room Air Room Air Oxygen Flow Rate Sepsis Recent Fever Within 48 Hours No Sepsis New/Unexplained Change in Mental Status No Sepsis Action Taken by Nursing No Action Required 10/07/20 17:50 10/07/20 17:51 10/07/20 17:57 Temperature Temperature Source Pulse Rate 88 Pulse Rate from SpO2 Sensor Respiratory Rate 26 H Respiratory Effort / Characteristics Respiratory Depth Respiratory Pattern Blood Pressure Blood Pressure Mean Blood Pressure Position Pulse Oximetry 94 95 Oxygen Delivery Method Nasal Cannula Nasal Cannula Oxygen Flow Rate 1 2 Sepsis Recent Fever Within 48 Hours Sepsis New/Unexplained Change in Mental Status Sepsis Action Taken by Nursing 10/07/20 18:00 10/07/20 18:10 10/07/20 18:20 Temperature Temperature Source Pulse Rate 89 86 79 Pulse Rate from SpO2 Sensor 85 97 H 86 Respiratory Rate 23 19 24 Respiratory Effort / Characteristics Respiratory Depth Respiratory Pattern Blood Pressure Blood Pressure Mean Blood Pressure Position Pulse Oximetry 91 92 95 Oxygen Delivery Method Nasal Cannula Oxygen Flow Rate 1 Sepsis Recent Fever Within 48 Hours Sepsis New/Unexplained Change in Mental Status Sepsis Action Taken by Nursing 10/07/20 18:30 10/07/20 18:40 10/07/20 18:50 Temperature Temperature Source Pulse Rate 87 69 75 Pulse Rate from SpO2 Sensor 86 71 78 Respiratory Rate 27 H 23 21 Respiratory Effort / Characteristics Respiratory Depth Respiratory Pattern Blood Pressure Blood Pressure Mean Blood Pressure Position Pulse Oximetry 94 100 99 Oxygen Delivery Method Oxygen Flow Rate Sepsis Recent Fever Within 48 Hours Sepsis New/Unexplained Change in Mental Status Sepsis Action Taken by Nursing 10/07/20 19:00 10/07/20 19:10 10/07/20 19:13 Temperature Temperature Source Pulse Rate 73 77 76 Pulse Rate from SpO2 Sensor 67 76 77 Respiratory Rate 24 34 H 23 Respiratory Effort / Characteristics Respiratory Depth Respiratory Pattern Blood Pressure 118/52 L Blood Pressure Mean 78 Blood Pressure Position Pulse Oximetry 97 96 98 Oxygen Delivery Method Oxygen Flow Rate Sepsis Recent Fever Within 48 Hours Sepsis New/Unexplained Change in Mental Status Sepsis Action Taken by Nursing 10/07/20 19:14 10/07/20 19:20 10/07/20 19:30 Temperature Temperature Source Pulse Rate 74 80 70 Pulse Rate from SpO2 Sensor 75 75 68 Respiratory Rate 22 23 23 Respiratory Effort / Characteristics Respiratory Depth Respiratory Pattern Blood Pressure 126/70 Blood Pressure Mean 97 Blood Pressure Position Pulse Oximetry 97 95 99 Oxygen Delivery Method Oxygen Flow Rate Sepsis Recent Fever Within 48 Hours Sepsis New/Unexplained Change in Mental Status Sepsis Action Taken by Nursing 10/07/20 19:40 10/07/20 19:50 10/07/20 20:00 Temperature Temperature Source Pulse Rate 69 66 67 Pulse Rate from SpO2 Sensor 71 66 68 Respiratory Rate 14 14 21 Respiratory Effort / Characteristics Respiratory Depth Respiratory Pattern Blood Pressure Blood Pressure Mean Blood Pressure Position Pulse Oximetry 97 99 98 Oxygen Delivery Method Oxygen Flow Rate Sepsis Recent Fever Within 48 Hours Sepsis New/Unexplained Change in Mental Status Sepsis Action Taken by Nursing 10/07/20 20:10 10/07/20 20:20 10/07/20 20:30 Temperature Temperature Source Pulse Rate 67 82 68 Pulse Rate from SpO2 Sensor 68 68 69 Respiratory Rate 21 21 22 Respiratory Effort / Characteristics Respiratory Depth Respiratory Pattern Blood Pressure Blood Pressure Mean Blood Pressure Position Pulse Oximetry 99 98 96 Oxygen Delivery Method Oxygen Flow Rate Sepsis Recent Fever Within 48 Hours Sepsis New/Unexplained Change in Mental Status Sepsis Action Taken by Nursing 10/07/20 20:40 10/07/20 20:50 10/07/20 21:00 Temperature Temperature Source Pulse Rate 70 69 77 Pulse Rate from SpO2 Sensor 70 70 72 Respiratory Rate 23 22 21 Respiratory Effort / Characteristics Respiratory Depth Respiratory Pattern Blood Pressure 107/68 Blood Pressure Mean 90 Blood Pressure Position Pulse Oximetry 97 98 98 Oxygen Delivery Method Oxygen Flow Rate Sepsis Recent Fever Within 48 Hours Sepsis New/Unexplained Change in Mental Status Sepsis Action Taken by Nursing 10/07/20 21:10 10/07/20 21:20 10/07/20 21:30 Temperature Temperature Source Pulse Rate 69 72 72 Pulse Rate from SpO2 Sensor 70 70 73 Respiratory Rate 22 25 H 22 Respiratory Effort / Characteristics Respiratory Depth Respiratory Pattern Blood Pressure Blood Pressure Mean Blood Pressure Position Pulse Oximetry 98 96 94 Oxygen Delivery Method Oxygen Flow Rate Sepsis Recent Fever Within 48 Hours Sepsis New/Unexplained Change in Mental Status Sepsis Action Taken by Nursing 10/07/20 21:32 10/07/20 21:40 10/07/20 21:50 Temperature Temperature Source Pulse Rate 70 72 73 Pulse Rate from SpO2 Sensor 71 71 70 Respiratory Rate 13 24 21 Respiratory Effort / Characteristics Respiratory Depth Respiratory Pattern Blood Pressure 115/44 L Blood Pressure Mean 57 Blood Pressure Position Pulse Oximetry 94 93 95 Oxygen Delivery Method Nasal Cannula Oxygen Flow Rate 1 Sepsis Recent Fever Within 48 Hours Sepsis New/Unexplained Change in Mental Status Sepsis Action Taken by Nursing 10/07/20 22:00 10/07/20 22:10 10/07/20 22:20 Temperature Temperature Source Pulse Rate 72 69 69 Pulse Rate from SpO2 Sensor 69 70 69 Respiratory Rate 20 20 20 Respiratory Effort / Characteristics Respiratory Depth Respiratory Pattern Blood Pressure 122/57 L Blood Pressure Mean 92 Blood Pressure Position Pulse Oximetry 98 98 98 Oxygen Delivery Method Oxygen Flow Rate Sepsis Recent Fever Within 48 Hours Sepsis New/Unexplained Change in Mental Status Sepsis Action Taken by Nursing 10/07/20 22:30 10/07/20 22:40 10/07/20 22:50 Temperature Temperature Source Pulse Rate 69 69 69 Pulse Rate from SpO2 Sensor 69 70 69 Respiratory Rate 14 24 19 Respiratory Effort / Characteristics Respiratory Depth Respiratory Pattern Blood Pressure 127/67 Blood Pressure Mean 93 Blood Pressure Position Pulse Oximetry 98 98 98 Oxygen Delivery Method Oxygen Flow Rate Sepsis Recent Fever Within 48 Hours Sepsis New/Unexplained Change in Mental Status Sepsis Action Taken by [facility] Medications Current Medication List: was personally reviewed by me Laboratory Data Attestation: I reviewed the patient's lab results. Result diagrams: 10/07/20 18:19 10/07/20 18:19 Lab Results 10/07/20 10/07/20 10/07/20 Range/Units 18:19 18:19 18:19 WBC 11.10 H (4.8-10.8) K/uL RBC 2.98 L (4.2-5.4) M/uL Hgb 8.1 L (12.0-16.0) g/dL Hct 27.7 L (37-47) % MCV 93.0 (80-100) fL MCH 27.2 (25-34) pg MCHC 29.2 L (32-36) g/dL RDW Std Deviation 63.1 H (36.4-46.3) fL RDW Coeff of Lelo 18.3 H (11.5-14.5) % Plt Count 246 (130-400) K/uL MPV 8.4 (7.4-10.4) fL Immature Gran % (Auto) 0.3 % Neut % (Auto) 90.2 % Lymph % (Auto) 3.8 % [place] % (Auto) 5.0 % Eos % (Auto) 0.4 % Baso % (Auto) 0.3 % Neut # (Auto) 10.02 H (1.4-6.5) K/uL Lymph # (Auto) 0.42 L (1.2-3.4) K/uL [place] # (Auto) 0.56 (0.11-0.59) K/uL Eos # (Auto) 0.04 (0-0.5) K/uL Baso # (Auto) 0.03 (0-0.2) K/uL Immature Gran # (Auto) 0.03 H (0.00-0.02) K/uL PT 12.6 H (9.0-12.0) Seconds INR 1.2 H (0.9-1.1) APTT 29.2 (21.0-31.0) Seconds PTT Ratio 1.0 Sodium 141 (136-145) mmol/L Potassium 4.1 (3.5-5.1) mmol/L Chloride 106 (98-107) mmol/L Carbon Dioxide 29 (21-32) mmol/L Anion Gap 7.0 (3-11) BUN 39 H (7-18) mg/dl Creatinine 1.48 H (0.6-1.2) mg/dl Est Cr Clr Drug Dosing 42.3 ml/min Est GFR ( Amer) 39.5 Est GFR (Non-Af Amer) 34.0 BUN/Creatinine Ratio 26.1 H (10-20) Glucose 151 H (70-99) mg/dl Lactate (0.4-2.0) mmol/L Calcium 8.8 (8.5-10.1) mg/dl Magnesium 2.3 (1.8-2.4) mg/dl Total Bilirubin 1.1 H (0.2-1) mg/dl AST 48 H (15-37) U/L ALT 42 (12-78) U/L Alkaline Phosphatase 100 (45-117) U/L Troponin I 0.029 (0-0.045) ng/ml Total Protein 7.0 (6.4-8.2) gm/dl Albumin 3.0 L (3.4-5.0) gm/dl Globulin 4.0 (2.5-4.0) gm/dl Albumin/Globulin Ratio 0.7 L (0.9-2) Procalcitonin (0-0.5) ng/ml Urine Color Urine Appearance (Clear) Urine pH (4.5-7.5) Ur Specific [place] (1.000-1.030) Urine Protein (Negative) Urine Glucose (UA) (Negative) Urine Ketones (Negative) Urine Blood (Negative) Urine Nitrite (Negative) Urine Bilirubin (Negative) Urine Urobilinogen (Negative) Ur Leukocyte Esterase (Negative) Urine WBC (Auto) (0-5) /hpf Urine RBC (Auto) (0-4) /hpf U Hyaline Cast (Auto) (0-5) /lpf U Epithel Cells (Auto) (0-5) /lpf Urine Bacteria (Auto) (Negative) Urine Yeast (None Prsent) COVID-19 Eval Order COVID-19 PCR (Negative) 10/07/20 10/07/20 10/07/20 Range/Units 18:19 18:19 19:10 WBC (4.8-10.8) K/uL RBC (4.2-5.4) M/uL Hgb (12.0-16.0) g/dL Hct (37-47) % MCV (80-100) fL MCH (25-34) pg MCHC (32-36) g/dL RDW Std Deviation (36.4-46.3) fL RDW Coeff of Lelo (11.5-14.5) % Plt Count (130-400) K/uL MPV (7.4-10.4) fL Immature Gran % (Auto) % Neut % (Auto) % Lymph % (Auto) % [place] % (Auto) % Eos % (Auto) % Baso % (Auto) % Neut # (Auto) (1.4-6.5) K/uL Lymph # (Auto) (1.2-3.4) K/uL [place] # (Auto) (0.11-0.59) K/uL Eos # (Auto) (0-0.5) K/uL Baso # (Auto) (0-0.2) K/uL Immature Gran # (Auto) (0.00-0.02) K/uL PT (9.0-12.0) Seconds INR (0.9-1.1) APTT (21.0-31.0) Seconds PTT Ratio Sodium (136-145) mmol/L Potassium (3.5-5.1) mmol/L Chloride (98-107) mmol/L Carbon Dioxide (21-32) mmol/L Anion Gap (3-11) BUN (7-18) mg/dl Creatinine (0.6-1.2) mg/dl Est Cr Clr Drug Dosing ml/min Est GFR ( Amer) Est GFR (Non-Af Amer) BUN/Creatinine Ratio (10-20) Glucose (70-99) mg/dl Lactate 1.2 (0.4-2.0) mmol/L Calcium (8.5-10.1) mg/dl Magnesium (1.8-2.4) mg/dl Total Bilirubin (0.2-1) mg/dl AST (15-37) U/L ALT (12-78) U/L Alkaline Phosphatase (45-117) U/L Troponin I (0-0.045) ng/ml Total Protein (6.4-8.2) gm/dl Albumin (3.4-5.0) gm/dl Globulin (2.5-4.0) gm/dl Albumin/Globulin Ratio (0.9-2) Procalcitonin 0.07 (0-0.5) ng/ml Urine Color Urine Appearance (Clear) Urine pH (4.5-7.5) Ur Specific [place] (1.000-1.030) Urine Protein (Negative) Urine Glucose (UA) (Negative) Urine Ketones (Negative) Urine Blood (Negative) Urine Nitrite (Negative) Urine Bilirubin (Negative) Urine Urobilinogen (Negative) Ur Leukocyte Esterase (Negative) Urine WBC (Auto) (0-5) /hpf Urine RBC (Auto) (0-4) /hpf U Hyaline Cast (Auto) (0-5) /lpf U Epithel Cells (Auto) (0-5) /lpf Urine Bacteria (Auto) (Negative) Urine Yeast (None Prsent) COVID-19 Eval Order Covid19 Done at [facility] [place] COVID-19 PCR (Negative) 10/07/20 10/07/20 Range/Units 19:10 19:17 WBC (4.8-10.8) K/uL RBC (4.2-5.4) M/uL Hgb (12.0-16.0) g/dL Hct (37-47) % MCV (80-100) fL MCH (25-34) pg MCHC (32-36) g/dL RDW Std Deviation (36.4-46.3) fL RDW Coeff of Lelo (11.5-14.5) % Plt Count (130-400) K/uL MPV (7.4-10.4) fL Immature Gran % (Auto) % Neut % (Auto) % Lymph % (Auto) % [place] % (Auto) % Eos % (Auto) % Baso % (Auto) % Neut # (Auto) (1.4-6.5) K/uL Lymph # (Auto) (1.2-3.4) K/uL [place] # (Auto) (0.11-0.59) K/uL Eos # (Auto) (0-0.5) K/uL Baso # (Auto) (0-0.2) K/uL Immature Gran # (Auto) (0.00-0.02) K/uL PT (9.0-12.0) Seconds INR (0.9-1.1) APTT (21.0-31.0) Seconds PTT Ratio Sodium (136-145) mmol/L Potassium (3.5-5.1) mmol/L Chloride (98-107) mmol/L Carbon Dioxide (21-32) mmol/L Anion Gap (3-11) BUN (7-18) mg/dl Creatinine (0.6-1.2) mg/dl Est Cr Clr Drug Dosing ml/min Est GFR ( Amer) Est GFR (Non-Af Amer) BUN/Creatinine Ratio (10-20) Glucose (70-99) mg/dl Lactate (0.4-2.0) mmol/L Calcium (8.5-10.1) mg/dl Magnesium (1.8-2.4) mg/dl Total Bilirubin (0.2-1) mg/dl AST (15-37) U/L ALT (12-78) U/L Alkaline Phosphatase (45-117) U/L Troponin I (0-0.045) ng/ml Total Protein (6.4-8.2) gm/dl Albumin (3.4-5.0) gm/dl Globulin (2.5-4.0) gm/dl Albumin/Globulin Ratio (0.9-2) Procalcitonin (0-0.5) ng/ml Urine Color Yellow Urine Appearance Cloudy A (Clear) Urine pH 5.0 (4.5-7.5) Ur Specific [place] 1.018 (1.000-1.030) Urine Protein Trace H (Negative) Urine Glucose (UA) Negative (Negative) Urine Ketones Negative (Negative) Urine Blood Trace H (Negative) Urine Nitrite Positive A (Negative) Urine Bilirubin Negative (Negative) Urine Urobilinogen Negative (Negative) Ur Leukocyte Esterase 3+ H (Negative) Urine WBC (Auto) >30 H (0-5) /hpf Urine RBC (Auto) 0-4 (0-4) /hpf U Hyaline Cast (Auto) 1-5 (0-5) /lpf U Epithel Cells (Auto) 10-20 H (0-5) /lpf Urine Bacteria (Auto) 1+ H (Negative) Urine Yeast Budding A (None Prsent) COVID-19 Eval Order COVID-19 PCR NEGATIVE (Negative) Administered Medications Discontinued Medications Furosemide (Furosemide 40 Mg/4 Ml Vial) 80 mg IV NOW STA Stop: 10/07/20 17:54 Last Admin: 10/07/20 19:11 Dose: 80 mg Documented by: [id number] Discharge Plan Visit Data Chief Complaint: Shortness of Breath/Dyspnea Stated Complaint: SOB ED Provider: Aaron Pierre Discharge Problem: Acute hypoxemic respiratory failure, Acute UTI (urinary tract infection), Bronchitis, Fever Forms Stand Alone Forms: My [facility] Prescriptions Prescriptions: No Action (DME) insulin syringe-needle U-100 [CareTouch Insulin Syringe] 1 mL 30 gauge x 5/16 syringe See Dose Instructions .ROUTE .MEDSUPPLY Qty: 300 RF: 5 amitriptyline 50 mg tablet 50 mg PO HS Qty: 90 RF: 3 metoprolol succinate 25 mg tablet extended release 24 hr 25 mg PO DAILY Qty: 90 RF: 1 allopurinol [Zyloprim] 100 mg tablet 100 mg PO QAM Qty: 90 RF: 1 ferrous sulfate 325 mg (65 mg iron) tablet 325 mg PO BID Qty: 180 RF: 3 (DME) lancets [BD Ultra Fine Lancets] 33 gauge misc See Rx Instructions .ROUTE .MEDSUPPLY Qty: 200 RF: 5 (DME) blood-glucose meter [True Metrix Glucose Meter] Misc See Rx Instructions .ROUTE .MEDSUPPLY Qty: 1 RF: 0 (DME) True Metrix Glucose Test Strip Strip See Rx Instructions .ROUTE .MEDSUPPLY Qty: 200 RF: 5 Eliquis 5 mg tablet 5 mg PO BID RF: 0 Hold Instructions: per hospital visit rosuvastatin [Crestor] 40 mg tablet 40 mg PO DAILY Qty: 90 RF: 3 ropinirole 5 mg tablet 5 mg PO QID Qty: 270 RF: 3 Levemir FlexTouch U-100 Insuln 100 unit/mL (3 mL) insulin pen 22 unit subcut BID RF: 0 acetaminophen 325 mg capsule 650 mg PO BID MDD 10 tabs PRN (Reason: pain (scale score 4-6)) RF: 0 furosemide [Lasix] 40 mg tablet 80 mg PO BID Qty: 0 RF: 0 nitroglycerin [Nitrostat] 0.4 mg tablet, sublingual 0.4 mg SL UD PRN (Reason: Chest Pain) Qty: 25 RF: 0 potassium chloride 20 mEq tablet extended release 20 meq PO BID Qty: 60 RF: 1 lidocaine 4 % adhesive patch,medicated 1 patch topical DAILY PRN (Reason: Pain) RF: 0 magnesium chloride 64 mg tablet,delayed release (DR/EC) 64 mg PO TID RF: 0 cholecalciferol (vitamin D3) 125 mcg (5,000 unit) capsule 125 mcg PO QAM RF: 0 insulin aspart U-100 [Novolog U-100 Insulin aspart] 100 unit/mL solution 5 units SQ QID RF: 0 pantoprazole 40 mg Tablet,Delayed Release (Dr/Ec) 40 mg PO BID Qty: 60 RF: 2 hydralazine 50 mg tablet 25 mg PO TID Qty: 270 RF: 1 albuterol sulfate [Ventolin HFA] 90 mcg/actuation HFA aerosol inhaler 1 - 2 inh inhalation UD PRN (Reason: shortness of breath) RF: 0 baclofen 10 mg tablet 5 mg PO HS RF: 0 Discharge Problem: Fever Qualifiers: Fever type: unspecified Qualified Code(s): R50.9 - Fever, unspecified
[2020-10-07] MEDS ORDERED: FUROSEMIDE 40 MG/4 ML VIAL IV STA (17:53)
[2020-10-07 18:36] LABS: Basophils # (auto) 0.03 K/uL (0-0.2); Basophils % (auto) 0.3 %; Eosinophils # (auto) 0.04 K/uL (0-0.5); Eosinophils % (auto) 0.4 %; Hematocrit (blood only) 27.7 % (37-47); Hemoglobin 8.1 g/dL (12.0-16.0); Immature Granulocytes # (auto) 0.03 K/uL (0.00-0.02); Immature Granulocytes % (auto) 0.3 %; Lymphocytes # (auto) 0.42 K/uL (1.2-3.4); Lymphocytes % (auto) 3.8 %; Mean Corpuscular Hemoglobin 27.2 pg (25-34); Mean Corpuscular Hgb Conc 29.2 g/dL (32-36); Mean Platelet Volume 8.4 fL (7.4-10.4); Monocytes # (auto) 0.56 K/uL (0.11-0.59); Neutrophils # (auto) 10.02 K/uL (1.4-6.5); Neutrophils % (auto) 90.2 %; Platelet Count 246 K/uL (130-400); RDW Coefficient of Variation 18.3 % (11.5-14.5); RDW Standard Deviation 63.1 fL (36.4-46.3); Red Blood Count 2.98 M/uL (4.2-5.4)
--- NOTE | 2020-10-07 18:36 | XRay Report ---
XR chest 1V portable CLINICAL HISTORY: SEPSIS COMPARISON STUDY: Chest CT August 04, 2020. Chest radiograph October 01, 2020. FINDINGS: Postoperative findings within the right lung are noted. There is marked cardiomegaly. This is unchanged. No pneumothorax or pleural effusion is noted. Mild interstitial thickening is noted. Th ere is also mild right basilar opacity. IMPRESSION: 1. Interstitial thickening suggestive of mild pulmonary edema. 2. Mild right lower lung opacity which may reflect a superimposed infectious process or atelectasis. 3. Marked cardiomegaly, unchanged. ACT 112: Negative or not required by law. Electronically signed by: Dennis Hernadez M.D. 10/07/2020 6:35 PM
[2020-10-07 18:53] LABS: BUN Creatinine Ratio 26.1 (10-20); Calcium 8.8 mg/dl (8.5-10.1); Creatinine Clr Calc Pharmacy 42.3 ml/min; Est GFR (African American) 39.5; Magnesium 2.3 mg/dl (1.8-2.4); Potassium 4.1 mmol/L (3.5-5.1)
[2020-10-07 18:57] LABS: Albumin Globulin Ratio 0.7 (0.9-2); Bilirubin,Total 1.1 mg/dl (0.2-1); Troponin I 0.029 ng/ml (0-0.045)
[2020-10-07 18:59] LABS: INR 1.2 (0.9-1.1); Partial Thromboplastin Time 29.2 Seconds (21.0-31.0); Prothrombin Time 12.6 Seconds (9.0-12.0)
[2020-10-07 19:35] LABS: Appearance Urine Cloudy (Clear); Bacteria Urine Automated 1+ (Negative); Bilirubin Urine Negative (Negative); Blood Urine Trace (Negative); Color Urine Yellow; Glucose Urine UA Negative (Negative); Ketones Urine Negative (Negative); Leukocyte Esterase Urine 3+ (Negative); Nitrite Urine Positive (Negative); Protein Urine Trace (Negative); Specific Gravity Urine 1.018 (1.000-1.030); Urobilinogen Urine Negative (Negative); WBC Urine Automated >30 /hpf (0-5)
[2020-10-07 20:16] LABS: RBC Urine Automated 0-4 /hpf (0-4)
--- NOTE | 2020-10-07 22:42 | History & Physical Report ---
Date of Service October 07, 2020 Assessment & Plan (1) Acute hypoxemic respiratory failure: Acute respiratory failure with hypoxia/pneumonia/CHF exacerbation- Present on Admission?: Yes (2) Pneumonia: Place on vancomycin IV and Zosyn IV. Duonebs every 4 hours while awake and every 2 hours when necessary. Present on Admission?: Yes (3) CHF exacerbation: CHF exacerbation/CAD/hypertension/atrial fibrillation- The patient will be admitted to telemetry for serial cardiac enzymes, serial EKG's, cardiac rhythm monitoring and a 2-D echocardiogram with Dopplers. Given Lasix 80 mg IV x1 in the ED. Continue usual dose of Lasix 80 mg p.o. twice daily starting in the a.m. Continue apixaban 5 mg p.o. twice daily, hydralazine 25 mg p.o. 3 times daily, mag chloride 64 mg p.o. 3 times daily, metoprolol succinate 25 mg p.o. daily and nitroglycerin sublingual as needed. Present on Admission?: Yes (4) Acute UTI (urinary tract infection): Follow urine culture and sensitivity. Antibiotics as noted above Present on Admission?: Yes (5) Pulmonary hypertension: (6) Hypertension: See above Present on Admission?: Yes (7) CAD (coronary artery disease): See above Present on Admission?: Yes (8) Atrial fibrillation: See above Present on Admission?: Yes (9) Type 2 diabetes mellitus with kidney complication, with long-term current use of insulin: Diabetes mellitus type 2/long-term insulin use/CKD stage III/peripheral neuropathy- Placed on Accu-Cheks before meals and at bedtime with NovoLog coverage per scale Decrease insulin detemir from 22 to 16 units subcu twice daily. Check hemoglobin A1c Present on Admission?: Yes (10) Diabetic peripheral neuropathy: Continue amitriptyline 50 mg p.o. at bedtime Present on Admission?: Yes History of Present Illness Chief Complaint: The patient presents to the emergency department with complaint of worsening shortness of breath, a low-grade temperature, and a cough, despite a recent change in Lasix dosing increased to 80 mg twice daily Primary Care Provider: Jaquelin Crowley MD The patient is a 75-year-old female with a past medical history including pulmonary hypertension, hypertension, obesity, CAD, atrial fibrillation, tricuspid regurgitation, right ventricular dysfunction, anemia, neuroendocrine tumor, E. 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 She presents with symptoms as noted above. Work-up in the emergency department included chest x-ray which showed pulmonary edema and right lower lobe infiltrate. Pulse ox was 80% on room air which increased to the mid 90s on 2 L nasal cannula. She was COVID-19 negative while in the ED tonight. Allergies Allergy/AdvReac Type Severity Reaction Status Date / Time metoclopramide [From Reglan] Allergy Mild "went Verified 10/07/20 11:27 crazy" NSAIDS (Non-Steroidal Allergy Unknown UNK? Verified 10/07/20 11:27 Anti-Inflamma DENIES SOB. capsaicin AdvReac Severe SHORTNESS Verified 10/07/20 11:27 OF BREATH diclofenac AdvReac Severe SHORTNESS Verified 10/07/20 11:27 OF BREATH Diclopak AdvReac Severe SHORTNESS Verified 07/24/18 10:57 OF BREATH Home Medications Home Medications Medication Instructions Recorded Confirmed Type magnesium chloride 64 mg 64 mg PO TID tab 06/02/19 10/07/20 History (magnesium chloride) tablet,delayed release insulin syringe-needle U-100 1 mL #300 ea 07/15/19 10/07/20 Rx 30 gauge x 5/16" amitriptyline 50 mg tablet 50 mg PO HS #90 tab 10/16/19 10/07/20 Rx cholecalciferol (vitamin D3) 125 mcg PO QAM 04/16/20 10/07/20 History acetaminophen 325 mg capsule 650 mg PO BID PRN cap MDD 10 tabs 04/22/20 10/07/20 History metoprolol succinate 25 mg 25 mg PO DAILY #90 tab 05/19/20 10/07/20 Rx tablet,extended release 24 hr allopurinol 100 mg tablet 100 mg PO QAM #90 tab 06/13/20 10/07/20 Rx ferrous sulfate 325 mg (65 mg 325 mg PO BID #180 tab 07/13/20 10/07/20 Rx iron) tablet ropinirole 5 mg tablet 5 mg PO QID #270 tab 07/20/20 10/07/20 Rx rosuvastatin 40 mg tablet 40 mg PO DAILY #90 tab 07/20/20 10/07/20 Rx insulin detemir U-100 100 unit/mL 22 unit SUBCUT BID ml 08/05/20 10/07/20 History (3 mL) subcutaneous pen insulin aspart U-100 100 unit/mL 5 units SQ QID ml 09/02/20 10/07/20 History subcutaneous solution BD Ultra Fine Lancets 33 gauge #200 ea NS 09/20/20 10/07/20 Rx True Metrix Glucose Meter #1 ea NS 09/20/20 10/07/20 Rx True Metrix Glucose Test Strip #200 ea NS 09/20/20 10/07/20 Rx hydralazine 25 mg PO TID #270 tab 10/04/20 10/07/20 Rx pantoprazole 40 mg PO BID #60 tab 10/04/20 10/07/20 Rx apixaban 5 mg tablet 5 mg PO BID 10/05/20 10/07/20 History albuterol sulfate 90 mcg/actuation 1 - 2 inh INHALATION UD PRN g 10/06/20 10/07/20 History aerosol inhaler baclofen 10 mg tablet 5 mg PO HS tab 10/06/20 10/07/20 History lidocaine 4 % topical patch 1 patch TOPICAL DAILY PRN 10/06/20 10/07/20 History furosemide 40 mg tablet 80 mg PO BID #0 tab 10/07/20 10/07/20 Rx nitroglycerin 0.4 mg sublingual 0.4 mg SL UD PRN #25 tab 10/07/20 10/07/20 Rx tablet potassium chloride 20 mEq 20 meq PO BID #60 tab 10/07/20 10/07/20 Rx tablet,extended release Past Med/Surg History Medical History Acute dehydration Acute osteomyelitis of toe of left foot Acute UTI (urinary tract infection) Anemia Aortic stenosis MILD-MOD per 08/2019 echo, but NO SIGNIFICANT STENOSIS noted on 10/12/19 echo. Atrial fibrillation On Eliquis CAD (coronary artery disease) s/p CABG x 2 in 2012. CAD has remained quiescent since then. Follows with Dr. Hernandez, who cleared the patient for lumbar surgery 07/2019. CHF (congestive heart failure) Appears euvolemic on exam at [facility] but unable to asses pedal edema due to b/l medical walking shoes for diabetic ulcers. EF 50-55% on most recent echo. Chronic kidney disease, stage 3 Clostridium difficile infection DX [facility] 12/2018 @ [facility]. Stool NEGATIVE 05/25/19. Diabetes mellitus, type 2 IDDM Diabetic foot ulcer associated with type 2 diabetes mellitus Following with wound clinic [facility]. DVT prophylaxis Dysphagia E. coli infect Encounter for immunization Encounter for monitoring diuretic therapy Fatty liver Gout Hypertension Hypoglycemia Indwelling Soto catheter present Lumbar spinal stenosis Severe at L4-5. 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 Lung cancer S/P RM lobectomy 2015, follows with Dr. Perkins. 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 Urinary tract infection Venous stasis ulcer of right lower leg with edema of right lower leg Surgical History Fusion of spine lumbar (07/2019) at [facility] --- uneventful surgery/anesthesia and hospitalization, but patient developed subsequent LE paraplegia. 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 History of appendectomy History of bilateral knee replacement History of bronchoscopy History of cardiac cath 2012 - [facility] - [place] - NO STENTS/ANGIOPLASTY -- > CABG History of cholecystectomy History of colonoscopy 11/2018 [facility] History of esophagogastroduodenoscopy (EGD) 11/2018 [facility] History of hysterectomy with oophorectomy KEARA with BSO History of lobectomy of lung RML History of ovarian cystectomy History of surgery Right VATS PROCEDURE History of tubal ligation Hx of CABG 2012 - - [place] - REMSEN - 2 VESSELS Family History Daughter Family history of diabetes mellitus Mother Heart disease Hypertension Myocardial infarction Father Hypertension Other Diabetes Denies family history of Ovarian cancer Prostate cancer Crohn's disease Breast cancer Colorectal cancer Ulcerative colitis Social History Smoking Status: Never smoker Tobacco Type: Cigarettes Years Smoked: 20; Cigarettes Per Day: 10; Number of Years Since Quit: 8; Second Hand Exposure: No; Do You Dip or Chew Tobacco: No; Tobacco Cessation Education Requested by Patient: No Hx Alcohol Use: No Hx Substance Use: No Preferred Language: Yakut Communication Ability: Effective Visual Impairment: No Limitations Hearing Ability: Normal Skein Bander Required: No Beliefs That Will Affect Care: None marital status: Current Living Situation: Family Current Living Situation Comment: Live with . current occupational status: retired Other Information That Helps Us Care for You: No Feels Safe at Home: Yes Safety Concerns: Feels Safe At This Time Childhood Exposure to Second-Hand Smoke: No Dental Care, Regularly: No Physical Activity Frequency: Does not Exercise Seatbelt Use: always Sunscreen Use: No Assistive Devices: Denture - Upper, Denture - Lower, Glasses, Mechanical Lift and Wheelchair Review of Systems Review of Systems: The patient denies chest pain, palpitations, lower extremity swelling, sore throat, fevers, chills, sweats, nausea, vomiting, diarrhea , constipation, abdominal pain, pelvic pain, blood in urine or stool, dysuria, urinary frequency or urgency, lightheadedness, dizziness, headache, memory loss, loss of consciousness, rash, abnormal bruising or bleeding, imbalance, focal weakness, generalized arthralgias or myalgias, back or neck pain, or night sweats. The review of systems is otherwise negative other than for that already noted above, and at least 10 systems have been reviewed. Physical Exam Physical Exam: The patient is awake, alert and oriented 3, well developed and well nourished, normocephalic and atraumatic, lying in bed and in no acute distress. HEENT--PERRL, EOMI, mucous membranes and oropharynx dry. Neck--supple. No JVD. No bruits. Thyroid normal, trachea midline, no adenopathy. Heart--normal S1 and S2. No murmurs, rubs or gallops. Lungs--clear bilaterally, no respiratory distress, no accessory muscle use. Abdomen--normal bowel sounds and soft. Nontender. Nondistended. Morbidly obese Extremities--no cyanosis or clubbing. No edema. Dermatologic--normal skin turgor, normal color, no abnormal lymph nodes, no rash. Neurologic--cranial nerves II through XII grossly intact. Paraparesis of bilateral lower extremities Rheumatologic--limited exam Psychiatric--normal affect. Results & Data Results & Data ([facility]) Vital Signs (Past 12 Hours) Vital Signs Temp Pulse Resp BP Pulse Ox 10/07/20 22:20 69 20 98 10/07/20 22:10 69 20 98 10/07/20 22:00 72 20 122/57 L 98 10/07/20 21:50 73 21 95 10/07/20 21:40 72 24 93 10/07/20 21:32 70 13 115/44 L 94 10/07/20 21:30 72 22 94 10/07/20 21:20 72 25 H 96 10/07/20 21:10 69 22 98 10/07/20 21:00 77 21 107/68 98 10/07/20 20:50 69 22 98 10/07/20 20:40 70 23 97 10/07/20 20:30 68 22 96 10/07/20 20:20 82 21 98 10/07/20 20:10 67 21 99 10/07/20 20:00 67 21 98 10/07/20 19:50 66 14 99 10/07/20 19:40 69 14 97 10/07/20 19:30 70 23 126/70 99 10/07/20 19:20 80 23 95 10/07/20 19:14 74 22 97 10/07/20 19:13 76 23 118/52 L 98 10/07/20 19:10 77 34 H 96 10/07/20 19:00 73 24 97 10/07/20 18:50 75 21 99 10/07/20 18:40 69 23 100 10/07/20 18:30 87 27 H 94 10/07/20 18:20 79 24 95 10/07/20 18:10 86 19 92 10/07/20 18:00 89 23 91 10/07/20 17:57 95 10/07/20 17:51 94 10/07/20 17:50 88 26 H 10/07/20 17:40 89 27 H 89 L 10/07/20 17:39 99.7 F H 86 31 H 152/74 H 88 L 10/07/20 17:37 90 19 152/74 H 88 L Laboratory Results Laboratory Results WBC 11.10 K/uL (4.8-10.8) H 10/07/20 18:19 RBC 2.98 M/uL (4.2-5.4) L 10/07/20 18:19 Hgb 8.1 g/dL (12.0-16.0) L 10/07/20 18:19 Hct 27.7 % (37-47) L 10/07/20 18:19 MCV 93.0 fL (80-100) 10/07/20 18:19 MCH 27.2 pg (25-34) 10/07/20 18:19 MCHC 29.2 g/dL (32-36) L 10/07/20 18:19 RDW Std Deviation 63.1 fL (36.4-46.3) H 10/07/20 18:19 RDW Coeff of Lelo 18.3 % (11.5-14.5) H 10/07/20 18:19 Plt Count 246 K/uL (130-400) 10/07/20 18:19 MPV 8.4 fL (7.4-10.4) 10/07/20 18:19 Immature Gran % (Auto) 0.3 % 10/07/20 18:19 Neut % (Auto) 90.2 % 10/07/20 18:19 Lymph % (Auto) 3.8 % 10/07/20 18:19 Quay % (Auto) 5.0 % 10/07/20 18:19 Eos % (Auto) 0.4 % 10/07/20 18:19 Baso % (Auto) 0.3 % 10/07/20 18:19 Neut # (Auto) 10.02 K/uL (1.4-6.5) H 10/07/20 18:19 Lymph # (Auto) 0.42 K/uL (1.2-3.4) L 10/07/20 18:19 Quay # (Auto) 0.56 K/uL (0.11-0.59) 10/07/20 18:19 Eos # (Auto) 0.04 K/uL (0-0.5) 10/07/20 18:19 Baso # (Auto) 0.03 K/uL (0-0.2) 10/07/20 18:19 Immature Gran # (Auto) 0.03 K/uL (0.00-0.02) H 10/07/20 18:19 PT 12.6 Seconds (9.0-12.0) H 10/07/20 18:19 INR 1.2 (0.9-1.1) H 10/07/20 18:19 APTT 29.2 Seconds (21.0-31.0) 10/07/20 18:19 PTT Ratio 1.0 10/07/20 18:19 Sodium 141 mmol/L (136-145) 10/07/20 18:19 Potassium 4.1 mmol/L (3.5-5.1) 10/07/20 18:19 Chloride 106 mmol/L (98-107) 10/07/20 18:19 Carbon Dioxide 29 mmol/L (21-32) 10/07/20 18:19 Anion Gap 7.0 (3-11) 10/07/20 18:19 BUN 39 mg/dl (7-18) H 10/07/20 18:19 Creatinine 1.48 mg/dl (0.6-1.2) H 10/07/20 18:19 Est Cr Clr Drug Dosing 42.3 ml/min 10/07/20 18:19 Est GFR ( Amer) 39.5 10/07/20 18:19 Est GFR (Non-Af Amer) 34.0 10/07/20 18: BUN/Creatinine Ratio 26.1 (10-20) H 10/07/20 18:19 Glucose 151 mg/dl (70-99) H 10/07/20 18:19 POC Glucose 159 mg/dl (70-99) H 10/08/20 01:12 Lactate 1.2 mmol/L (0.4-2.0) 10/07/20 18: Calcium 8.8 mg/dl (8.5-10.1) 10/07/20 18:19 Magnesium 2.3 mg/dl (1.8-2.4) 10/07/20 18:19 Total Bilirubin 1.1 mg/dl (0.2-1) H 10/07/20 18:19 AST 48 U/L (15-37) H 10/07/20 18:19 ALT 42 U/L (12-78) 10/07/20 18:19 Alkaline Phosphatase 100 U/L (45-117) 10/07/20 18:19 Troponin I 0.029 ng/ml (0-0.045) 10/07/20 18:19 Total Protein 7.0 gm/dl (6.4-8.2) 10/07/20 18:19 Albumin 3.0 gm/dl (3.4-5.0) L 10/07/20 18:19 Globulin 4.0 gm/dl (2.5-4.0) 10/07/20 18:19 Albumin/Globulin Ratio 0.7 (0.9-2) L 10/07/20 18:19 Procalcitonin 0.07 ng/ml (0-0.5) 10/07/20 18:19 Urine Color Yellow 10/07/20 19:17 Urine Appearance Cloudy (Clear) A 10/07/20 19:17 Urine pH 5.0 (4.5-7.5) 10/07/20 19:17 Ur Specific [place] 1.018 (1.000-1.030) 10/07/20 19:17 Urine Protein Trace (Negative) H 10/07/20 19:17 Urine Glucose (UA) Negative (Negative) 10/07/20 19:17 Urine Ketones Negative (Negative) 10/07/20 19:17 Urine Blood Trace (Negative) H 10/07/20 19:17 Urine Nitrite Positive (Negative) A 10/07/20 19:17 Urine Bilirubin Negative (Negative) 10/07/20 19:17 Urine Urobilinogen Negative (Negative) 10/07/20 19:17 Ur Leukocyte Esterase 3+ (Negative) H 10/07/20 19:17 Urine WBC (Auto) >30 /hpf (0-5) H 10/07/20 19:17 Urine RBC (Auto) 0-4 /hpf (0-4) 10/07/20 19:17 U Hyaline Cast (Auto) 1-5 /lpf (0-5) 10/07/20 19:17 U Epithel Cells (Auto) 10-20 /lpf (0-5) H 10/07/20 19:17 Urine Bacteria (Auto) 1+ (Negative) H 10/07/20 19:17 Urine Yeast Budding (None Prsent) A 10/07/20 19:17 COVID-19 Eval Order Covid19 Done at [facility] 10/07/20 19:10 COVID-19 PCR NEGATIVE (Negative) 10/07/20 19:10 Diagnostic Findings [facility], [phone] XRay Report Patient: MERCED SESAY Date: 10/07/20MR#: [id number]: [address] DRAcct ID:[id number]: [address]: [facility] Zip: [place], [place] [address]Age: 75Location: EDSex: FRoom/Bed:Att Phy:Diagnosis: SOBPri Phy: Shanice RVАнна, MDService Date: 10/07/20Fam Phy:Interpreting Phy: Dennis Hernadez MDAdmit Phy: Ordering Phy: Aaron Pierre MD cc: ~ XR chest 1V portable CLINICAL HISTORY: SEPSIS COMPARISON STUDY: Chest CT August 04, 2020. Chest radiograph October 01, 2020. FINDINGS: Postoperative findings within the right lung are noted. There is marked cardiomegaly. This is unchanged. No pneumothorax or pleural effusion is noted. Mild interstitial thickening is noted. There is also mild right basilar opacity. IMPRESSION: 1. Interstitial thickening suggestive of mild pulmonary edema. 2. Mild right lower lung opacity which may reflect a superimposed infectious process or atelectasis. 3. Marked cardiomegaly, unchanged. ACT 112: Negative or not required by law. Electronically signed by: Dennis Hernadez M.D. 10/07/2020 6:35 PM Dictated: 10/07/201831Transcribed: 10/07/20 183 Code Status & VTE Plan Code Status Full code VTE Prophylaxis Plan VTE Prophylaxis will be ordered: Yes PG Care Time/CCT Total # of Minutes Spent Total Time Spent with Patient: Total time spent is greater than 50% in coordination of care (as documented) at patient's floor/unit and/or counseling patient: Coding Level of Care Code 36793 Initial Inpt Care Lvl 3 Diagnoses Acute hypoxemic respiratory failure J96.01 Pneumonia J18.9 CHF exacerbation I50.9 Acute UTI (urinary tract infection) N39.0 Pulmonary hypertension I27.20 Hypertension I10 CAD (coronary artery disease) I25.10 Atrial fibrillation I48.91 Type 2 diabetes mellitus with kidney complication, with long-term current use of insulin E11.29; Z79.4 Diabetic peripheral neuropathy E11.42
[2020-10-07] MEDS ORDERED: PIPERACILLIN/TAZOBACTAM 4.5 GM/120 ML BAG IV ONE (23:43)
[2020-10-07] MEDS ORDERED: PIPERACILL/TAZOBAC CONSULT ACTIVE PRN (23:43)
[2020-10-07] MEDS ORDERED: ACETAMINOPHEN 325 MG TAB PO STA (23:44)
[2020-10-08] MEDS ORDERED: GLUCAGON FOR INJ 1 MG VIAL SQ PRN (00:46)
[2020-10-08] MEDS ORDERED: PIPERACILL/TAZOBAC CONSULT ACTIVE PRN (00:46)
[2020-10-08] MEDS ORDERED: DEXTROSE 50% 50 ML SYRINGE IV PRN (00:46)
[2020-10-08] MEDS ORDERED: ONDANSETRON INJ 2 MG/ML 2 ML VIAL IV PRN (00:46)
[2020-10-08] MEDS ORDERED: NITROGLYCERIN SL 0.4 MG/TAB TAB SL PRN (00:46)
[2020-10-08] MEDS ORDERED: GLUCOSE 10 TABS/TUBE PO PRN (00:46)
[2020-10-08] MEDS ORDERED: GLUCOSE 40% GEL 15 GM TUBE PO PRN (00:46)
[2020-10-08] MEDS ORDERED: CARBOHYDRATES FOR HYPOGLYCEMIA PO PRN (00:46)
[2020-10-08] MEDS ORDERED: VANCOMYCIN CONSULT ACTIVE PRN (00:46)
[2020-10-08] MEDS ORDERED: VANCOMYCIN HCL 2,500 MG in SODIUM CHLORIDE 0.9% 500 ML IV STA (01:51)
[2020-10-08] MEDS: FERROUS SULFATE 325 MG TAB PO SCH ×3 (02:08→20:03)
[2020-10-08] MEDS: POTASSIUM CHLORIDE CRTAB 20 MEQ TABCR PO SCH ×3 (02:08→20:03)
[2020-10-08] MEDS: APIXABAN 5 MG TABLET PO SCH ×3 (02:08→08:14)
[2020-10-08] MEDS: PANTOprazole 40 MG TAB PO SCH ×3 (02:08→20:03)
[2020-10-08] MEDS: INSULIN DETEMIR FLEXPEN/FLEX TOUCH 100 UNITS/ML 3ML SQ SCH ×3 (02:09→20:36)
[2020-10-08] MEDS: PIPERACILLIN/TAZOBACTAM 4.5 GM in DEXTROSE 5% 100 ML IV SCH ×3 (05:21→21:30)
[2020-10-08 06:02] LABS: INR 1.3 (0.9-1.1); Partial Thromboplastin Ratio 1.1; Partial Thromboplastin Time 31.7 Seconds (21.0-31.0); Prothrombin Time 13.3 Seconds (9.0-12.0)
[2020-10-08 06:21] LABS: Hematocrit (blood only) 25.7 % (37-47); Hemoglobin 7.6 g/dL (12.0-16.0); Mean Corpuscular Hemoglobin 27.4 pg (25-34); Mean Corpuscular Hgb Conc 29.6 g/dL (32-36); Mean Corpuscular Volume 92.8 fL (80-100); Mean Platelet Volume 8.5 fL (7.4-10.4); Platelet Count 235 K/uL (130-400); RDW Coefficient of Variation 18.3 % (11.5-14.5); RDW Standard Deviation 62.4 fL (36.4-46.3); Red Blood Count 2.77 M/uL (4.2-5.4); White Blood Count 7.05 K/uL (4.8-10.8)
[2020-10-08 06:23] LABS: Basophils # (auto) 0.01 K/uL (0-0.2); Basophils % (auto) 0.1 %; Eosinophils # (auto) 0.16 K/uL (0-0.5); Eosinophils % (auto) 2.3 %; Hypochromasia Present; Immature Granulocytes # (auto) 0.02 K/uL (0.00-0.02); Immature Granulocytes % (auto) 0.3 %; Lymphocytes # (auto) 0.78 K/uL (1.2-3.4); Lymphocytes % (auto) 11.1 %; Monocytes % (auto) 8.5 %; Neutrophils # (auto) 5.48 K/uL (1.4-6.5); Neutrophils % (auto) 77.7 %
[2020-10-08 06:24] LABS: Albumin Level 2.6 gm/dl (3.4-5.0); BUN Creatinine Ratio 25.5 (10-20); Calcium 8.6 mg/dl (8.5-10.1); Creatinine Clr Calc Pharmacy 38.9 ml/min; Est GFR (African American) 39.8; Est GFR (Non-African American) 34.3; Magnesium 2.3 mg/dl (1.8-2.4); Potassium 3.9 mmol/L (3.5-5.1)
[2020-10-08 06:27] LABS: Albumin Globulin Ratio 0.7 (0.9-2); Bilirubin,Total 1.3 mg/dl (0.2-1); Globulin 3.7 gm/dl (2.5-4.0); Total Protein 6.3 gm/dl (6.4-8.2)
[2020-10-08] MEDS: ALBUT/IPRATROP 3MG/0.5MG NEB 3 ML VIAL NEB SCH ×4 (07:14→18:25)
[2020-10-08] MEDS: ROSUVASTATIN CALCIUM 20 MG TAB PO SCH (08:02)
[2020-10-08] MEDS: INSULIN ASPART 100 UNITS/ML 3 ML PEN SC SCH ×4 (08:02→20:36)
[2020-10-08] MEDS: METOPROLOL SUCC 25MG EXT REL TAB PO SCH (08:03)
[2020-10-08] MEDS: hydrALAZINE HCL 25 MG TAB PO SCH ×3 (08:03→19:37)
[2020-10-08] MEDS: allopurinoL 100 MG TAB PO SCH (08:04)
[2020-10-08] MEDS: CHOLECALCIFEROL 1,000 UNITS 25 MCG TAB PO SCH (08:04)
[2020-10-08] MEDS: MAGNESIUM CHLORIDE 64MG DELAYED REL TAB PO SCH ×3 (08:04→20:03)
--- NOTE | 2020-10-08 08:31 | Pharmacy Report ---
Pharmacy Abx Dose Short Note - Date of Service October 08, 2020 - Assessment & Plan Assessment 75 year old F receiving Vancomycin and zosyn for treatment of pneumonia and UTI. History of DM and CKD stage III. Day # 1 of antimicrobial therapy. * COVID negative * MRSA nasal swab ordered * Urine and blood cultures pending. Plan Vanc and zosyn for treatment of pneumonia Vancomycin IV * Estimated PK Parameters: Vd 0.6 L/kg, Jun 0.039 hr-1, t1/2 18 hr * Loading dose: 2500 mg (22 mg/kg) * Maintenance dose: 1500 mg IV (13.1 mg/kg) every 24 hours * Goal trough level for pneumonia : 15 to 20 mcg/mL * Trough level ordered for 10/11/20 @2130 prior to third maintenance dose. Ordered prior to steady state to ensure pt not accumulating. * A less than traditional dose and extended dosing interval have been selected due to likelihood of drug accumulation in obese patient/patient with h/o CKD. Piperacillin/tazobactam * 4.5 g bolus administered over 30 minutes, then 4.8 g IV extended infusion every 8 hours for CrCl greater than 20 mL/min * Aggressive dosing selected due to BMI 35 or more. Pharmacy will continue to follow and will adjust dose/frequency as necessary. Thank you.
[2020-10-08] MEDS ORDERED: FUROSEMIDE 80 MG TAB PO SCH (09:00)
--- NOTE | 2020-10-08 09:33 | Electrocardiogram Report ---
Test Reason : Blood Pressure : / mmHG Vent. Rate : 074 BPM Atrial Rate : 082 BPM P-R Int : 000 ms QRS Dur : 122 ms QT Int : 410 ms P-R-T Axes : 000 -52 103 degrees QTc Int : 455 ms Atrial fibrillation with a competing junctional pacemaker Left axis deviation Non-specific intra-ventricular conduction delay Nonspecific ST and T wave abnormality Abnormal ECG When compared with ECG of 24-SEP-2020 10:03, No significant change was found Confirmed by Romaine Ontiveros ([id number]) on 10/08/2020 9:33:27 AM Referred By: REFERRED SELF Confirmed By:Romaine Ontiveros
[2020-10-08 17:56] LABS: Adenovirus PCR Not Detected (NotDetected); Bordetella parapertussis PCR Not Detected (NotDetected); Bordetella pertussis PCR Not Detected (NotDetected); Chlamydia pneumoniae PCR Not Detected (NotDetected); Coronavirus 229E PCR Not Detected (NotDetected); Coronavirus CoV-2 (COVID19)PCR Not Detected (NotDetected); Coronavirus HKU1 PCR Not Detected (NotDetected); Coronavirus NL63 PCR Not Detected (NotDetected); Coronavirus OC43PCR Not Detected (NotDetected); Human Metapneumovirus PCR Not Detected (NotDetected); Influenza A PCR Not Detected (NotDetected); Influenza B PCR Not Detected (NotDetected); Mycoplasma pneumoniae PCR Not Detected (NotDetected); Parainfluenza Virus 1 PCR Not Detected (NotDetected); Parainfluenza Virus 2 PCR Not Detected (NotDetected); Parainfluenza Virus 3 PCR Not Detected (NotDetected); Parainfluenza Virus 4 PCR Not Detected (NotDetected); Respiratory Syncytial VirusPCR Not Detected (NotDetected); Rhinovirus/Enterovirus PCR Not Detected (NotDetected)
[2020-10-08] MEDS ORDERED: FUROSEMIDE 60 MG in SYRINGE 0 ML IV ONE (19:00)
[2020-10-08] MEDS: AMITRIPTYLINE HCL 50 MG TAB PO SCH (20:03)
[2020-10-08] MEDS: BACLOFEN 10 MG TAB PO SCH (20:04)
[2020-10-08] MEDS ORDERED: VANCOMYCIN HCL 1,500 MG in SODIUM CHLORIDE 0.9% 500 ML IV SCH (22:00)
--- NOTE | 2020-10-08 22:30 | Hospitalist Progress Note ---
Date of Service October 08, 2020 Assessment & Plan (1) Acute hypoxemic respiratory failure: uncertain if this is due to acute/chronic CHF, bronchitis, and/or pneumonia. COVID-19 PCR yesterday negative. I repeated a BioFire panel today - which includes COVID-19 - and entire panel was negative. Remains on zosyn/vanco for ?right-sided pneumonia seen on admission cxr. Plan to repeat cxr in am. Diurese - 60mg lasix x 1 and follow response. cont bronchodilators. (2) Acute UTI (urinary tract infection): GNR - follow culture. zosyn should suffice. THIS IS COMPLICATED UTI / CATHETER-ASSOCIATED UTI as she has chronic indwelling suprapubic catheter. (3) Chronic right-sided congestive heart failure: see above in resp failure. cont beta jody & diuretics. baseline dry weight is not fully certain. (4) Pneumonia: Question of. Repeat a cxr in am. (5) Bronchitis: severe wheezing on exam today. viral? bacterial? wheezing from pulm edema? cont bronchodilators. consider steroids. (6) Pulmonary hypertension: (7) Hypertension: (8) Atrial fibrillation: controlled eliquis on hold due to anemia and heme + stool (9) Anemia: Hb 7.6 today repeat H/H in am if Hb <7.5 then Tx (10) Type 2 diabetes mellitus with kidney complication, with long-term current use of insulin: cont basal-bolus insulin controlled (11) CAD (coronary artery disease): no ischemic sx's at this time cont BB cont statin (12) Indwelling Soto catheter present: suprapubic catheter this should likely be exchanged due to new UTI (13) Restless leg syndrome: cont ropinirole (14) Chronic kidney disease, stage 3: baseline Cr about 1.4 (15) Morbid obesity with BMI of 45.0-49.9, adult: BMI 45 (16) Paraplegia: h/o lumbar back surgery and 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 fatigued, poor appetite, very tired - "I just want to sleep." coughing, and quickly gets dyspneic with talking. wheezing. all symptoms started suddenly after attending an outpatient doctor's appt. by report apparently was taking salt tablets after her recent hospital d/c (??) and wasn't taking her lasix (??). no sick contacts after hospital discharge. tele overnight - rate -controlled a.fib. Review of Systems Constitutional: + fever (last night ), + fatigue and + anorexia Ear, Nose, Mouth, Throat: no loss of taste or smell Respiratory: + cough, + dyspnea and + wheezing Cardiovascular: no chest pain Gastrointestinal: no abdominal pain, no nausea and no vomiting Physical Exam Constitutional: + ill appearing and + morbidly obese; no acute distress and no altered mental status ENMT: external ear and nose normal, oropharynx normal Respiratory: no respiratory distress Auscultation: + crackles (bases ) and + wheezes (extensive b/l ) Cardiovascular: Rate/Rhythm: regular rate and + irregularly irregular Heart Sounds: normal S1, normal S2 and + murmur (2/6 RUSB systolic) Vessels: posterior tibial pulses present and dorsalis pedis pulses present; no JVD Extremities: + edema (but actually LESS than my previous visit w/ her earlier this week ) Gastrointestinal (Abdomen): normal bowel sounds, soft, nontender, no hepatosplenomegaly Percussion/Palpation: + hernia (upper abdomen - reducible ) Psychiatric: Orientation: alert and oriented x 3 Results & Data Results & Data ([facility]) Vital Signs (Past 12 Hours) Vital Signs Temp Pulse Resp BP Pulse Ox 10/08/20 19:08 36.9 C 75 21 113/64 95 10/08/20 18:25 63 20 97 10/08/20 15:27 37.1 C 57 L 21 105/58 L 97 10/08/20 15:06 20 93 10/08/20 11:17 60 14 113/67 100 10/08/20 11:06 56 L 18 96 Laboratory Results Laboratory Results - last 24 hr 10/08/20 10/08/20 10/08/20 01:12 05:17 05:17 WBC 7.05 RBC 2.77 L Hgb 7.6 L Hct 25.7 L MCV 92.8 MCH 27.4 MCHC 29.6 L RDW Std Deviation 62.4 H RDW Coeff of Lelo 18.3 H Plt Count 235 MPV 8.5 Immature Gran % (Auto) 0.3 Neut % (Auto) 77.7 Lymph % (Auto) 11.1 [place] % (Auto) 8.5 Eos % (Auto) 2.3 Baso % (Auto) 0.1 Neut # (Auto) 5.48 Lymph # (Auto) 0.78 L [place] # (Auto) 0.60 H Eos # (Auto) 0.16 Baso # (Auto) 0.01 Immature Gran # (Auto) 0.02 Hypochromasia Present PT 13.3 H INR 1.3 H APTT 31.7 H PTT Ratio 1.1 Sodium Potassium Chloride Carbon Dioxide Anion Gap BUN Creatinine Est Cr Clr Drug Dosing Est GFR ( Amer) Est GFR (Non-Af Amer) BUN/Creatinine Ratio Glucose POC Glucose 159 H Calcium Magnesium Total Bilirubin AST ALT Alkaline Phosphatase Total Protein Albumin Globulin Albumin/Globulin Ratio Nasal Screen MRSA (PCR) Adenovirus (PCR) B. pertussis DNA (PCR) B.parapertussis DNA PCR C. pneumoniae DNA (PCR) Coronavirus OC43 (PCR) Coronavirus HKU1 (PCR) Coronavirus 229E (PCR) COVID-19 PCR Coronavirus NL63 (PCR) Human Metapneumovir PCR Influenza Type A (PCR) Influenza Type B (PCR) M. pneumoniae (PCR) Parainfluenza 1 (PCR) Parainfluenza 2 (PCR) Parainfluenza 3 (PCR) Parainfluenza 4 (PCR) RSV (PCR) Entero/Rhino (PCR) 10/08/20 10/08/20 10/08/20 05:17 07:33 10:15 WBC RBC Hgb Hct MCV MCH MCHC RDW Std Deviation RDW Coeff of Lelo Plt Count MPV Immature Gran % (Auto) Neut % (Auto) Lymph % (Auto) [place] % (Auto) Eos % (Auto) Baso % (Auto) Neut # (Auto) Lymph # (Auto) [place] # (Auto) Eos # (Auto) Baso # (Auto) Immature Gran # (Auto) Hypochromasia PT INR APTT PTT Ratio Sodium 141 Potassium 3.9 Chloride 106 Carbon Dioxide 30 Anion Gap 5.0 BUN 38 H Creatinine 1.47 H Est Cr Clr Drug Dosing 38.9 Est GFR ( Amer) 39.8 Est GFR (Non-Af Amer) 34.3 BUN/Creatinine Ratio 25.5 H Glucose 137 H POC Glucose 144 H Calcium 8.6 Magnesium 2.3 Total Bilirubin 1.3 H AST 36 ALT 34 Alkaline Phosphatase 88 Total Protein 6.3 L Albumin 2.6 L Globulin 3.7 Albumin/Globulin Ratio 0.7 L Nasal Screen MRSA (PCR) Negative Adenovirus (PCR) B. pertussis DNA (PCR) B.parapertussis DNA PCR C. pneumoniae DNA (PCR) Coronavirus OC43 (PCR) Coronavirus HKU1 (PCR) Coronavirus 229E (PCR) COVID-19 PCR Coronavirus NL63 (PCR) Human Metapneumovir PCR Influenza Type A (PCR) Influenza Type B (PCR) M. pneumoniae (PCR) Parainfluenza 1 (PCR) Parainfluenza 2 (PCR) Parainfluenza 3 (PCR) Parainfluenza 4 (PCR) RSV (PCR) Entero/Rhino (PCR) 10/08/20 10/08/20 10/08/20 11:35 16:13 16:45 WBC RBC Hgb Hct MCV MCH MCHC RDW Std Deviation RDW Coeff of Lelo Plt Count MPV Immature Gran % (Auto) Neut % (Auto) Lymph % (Auto) [place] % (Auto) Eos % (Auto) Baso % (Auto) Neut # (Auto) Lymph # (Auto) [place] # (Auto) Eos # (Auto) Baso # (Auto) Immature Gran # (Auto) Hypochromasia PT INR APTT PTT Ratio Sodium Potassium Chloride Carbon Dioxide Anion Gap BUN Creatinine Est Cr Clr Drug Dosing Est GFR ( Amer) Est GFR (Non-Af Amer) BUN/Creatinine Ratio Glucose POC Glucose 149 H 107 H Calcium Magnesium Total Bilirubin AST ALT Alkaline Phosphatase Total Protein Albumin Globulin Albumin/Globulin Ratio Nasal Screen MRSA (PCR) Adenovirus (PCR) Not Detected B. pertussis DNA (PCR) Not Detected B.parapertussis DNA PCR Not Detected C. pneumoniae DNA (PCR) Not Detected Coronavirus OC43 (PCR) Not Detected Coronavirus HKU1 (PCR) Not Detected Coronavirus 229E (PCR) Not Detected COVID-19 PCR Not Detected Coronavirus NL63 (PCR) Not Detected Human Metapneumovir PCR Not Detected Influenza Type A (PCR) Not Detected Influenza Type B (PCR) Not Detected M. pneumoniae (PCR) Not Detected Parainfluenza 1 (PCR) Not Detected Parainfluenza 2 (PCR) Not Detected Parainfluenza 3 (PCR) Not Detected Parainfluenza 4 (PCR) Not Detected RSV (PCR) Not Detected Entero/Rhino (PCR) Not Detected 10/08/20 20:27 WBC RBC Hgb Hct MCV MCH MCHC RDW Std Deviation RDW Coeff of Lelo Plt Count MPV Immature Gran % (Auto) Neut % (Auto) Lymph % (Auto) [place] % (Auto) Eos % (Auto) Baso % (Auto) Neut # (Auto) Lymph # (Auto) [place] # (Auto) Eos # (Auto) Baso # (Auto) Immature Gran # (Auto) Hypochromasia PT INR APTT PTT Ratio Sodium Potassium Chloride Carbon Dioxide Anion Gap BUN Creatinine Est Cr Clr Drug Dosing Est GFR ( Amer) Est GFR (Non-Af Amer) BUN/Creatinine Ratio Glucose POC Glucose 149 H Calcium Magnesium Total Bilirubin AST ALT Alkaline Phosphatase Total Protein Albumin Globulin Albumin/Globulin Ratio Nasal Screen MRSA (PCR) Adenovirus (PCR) B. pertussis DNA (PCR) B.parapertussis DNA PCR C. pneumoniae DNA (PCR) Coronavirus OC43 (PCR) Coronavirus HKU1 (PCR) Coronavirus 229E (PCR) COVID-19 PCR Coronavirus NL63 (PCR) Human Metapneumovir PCR Influenza Type A (PCR) Influenza Type B (PCR) M. pneumoniae (PCR) Parainfluenza 1 (PCR) Parainfluenza 2 (PCR) Parainfluenza 3 (PCR) Parainfluenza 4 (PCR) RSV (PCR) Entero/Rhino (PCR) PG Care Time/CCT Total # of Minutes Spent Total Time Spent with Patient: Total time spent is greater than 50% in coordination of care (as documented) at patient's floor/unit and/or counseling patient: Coding Level of Care Code 93461 Subseq Hosp Care Lvl 3 Diagnoses Acute hypoxemic respiratory failure J96.01 Acute UTI (urinary tract infection) N39.0 Chronic right-sided congestive heart failure I50.812 Pneumonia J18.9 Bronchitis J40 Pulmonary hypertension I27.20 Hypertension I10 Atrial fibrillation I48.91 Anemia D64.9 Type 2 diabetes mellitus with kidney complication, with long-term current use of insulin E11.29; Z79.4 CAD (coronary artery disease) I25.10 Indwelling Soto catheter present Z96.0 Restless leg syndrome G25.81 Chronic kidney disease, stage 3 N18.3 Morbid obesity with BMI of 45.0-49.9, adult E66.01; Z68.42 Paraplegia G82.20 DVT prophylaxis Z29.9
[2020-10-09] MEDS: PIPERACILLIN/TAZOBACTAM 4.5 GM in DEXTROSE 5% 100 ML IV SCH ×3 (05:33→22:10)
[2020-10-09] MEDS: ALBUT/IPRATROP 3MG/0.5MG NEB 3 ML VIAL NEB SCH ×4 (07:04→19:35)
[2020-10-09 08:26] LABS: Hematocrit (blood only) 25.5 % (37-47); Hemoglobin 7.6 g/dL (12.0-16.0)
[2020-10-09 08:49] LABS: BUN Creatinine Ratio 22.6 (10-20); Calcium 8.9 mg/dl (8.5-10.1); Est GFR (African American) 36.5; Est GFR (Non-African American) 31.5; Potassium 3.5 mmol/L (3.5-5.1)
--- NOTE | 2020-10-09 08:49 | XRay Report ---
XR chest 1V portable CLINICAL HISTORY: CHF vs pneumonia COMPARISON STUDY: Chest CT August 04, 2020. Chest radiograph October 07, 2020. FINDINGS: There are median sternotomy wires. Cardiomegaly is noted. Interstitial thickening has progr essed. There are small bilateral pleural effusions. There is no pneumothorax. Patient is rotated. IMPRESSION: 1. Progression of pulmonary edema. 2. Small bilateral pleural effusions with bibasilar opacities. ACT 112: Negative or not required by law. Electronically signed by: Dennis Hernadez M.D. 10/09/2020 8:48 AM
[2020-10-09] MEDS: CHOLECALCIFEROL 1,000 UNITS 25 MCG TAB PO SCH (09:00)
[2020-10-09] MEDS: FERROUS SULFATE 325 MG TAB PO SCH ×2 (09:01→20:32)
[2020-10-09] MEDS: MAGNESIUM CHLORIDE 64MG DELAYED REL TAB PO SCH ×3 (09:01→20:31)
[2020-10-09] MEDS: ROSUVASTATIN CALCIUM 20 MG TAB PO SCH (09:01)
[2020-10-09] MEDS: PANTOprazole 40 MG TAB PO SCH ×2 (09:01→20:29)
[2020-10-09] MEDS: METOPROLOL SUCC 25MG EXT REL TAB PO SCH (09:01)
[2020-10-09] MEDS: allopurinoL 100 MG TAB PO SCH (09:02)
[2020-10-09] MEDS: hydrALAZINE HCL 25 MG TAB PO SCH ×3 (09:02→20:31)
[2020-10-09] MEDS: INSULIN ASPART 100 UNITS/ML 3 ML PEN SC SCH ×4 (09:03→20:42)
[2020-10-09] MEDS: INSULIN DETEMIR FLEXPEN/FLEX TOUCH 100 UNITS/ML 3ML SQ SCH ×2 (09:04→20:43)
[2020-10-09] MEDS: POTASSIUM CHLORIDE CRTAB 20 MEQ TABCR PO SCH ×3 (09:05→20:32)
[2020-10-09] MEDS ORDERED: FUROSEMIDE 60 MG in SYRINGE 0 ML IV ONE (10:15)
[2020-10-09] MEDS ORDERED: FUROSEMIDE 40 MG in SYRINGE 0 ML IV ONE (17:00)
[2020-10-09] MEDS: methylPREDNISolone 40 MG in SYRINGE 0 ML IV SCH ×2 (17:13→22:10)
[2020-10-09] MEDS: BACLOFEN 10 MG TAB PO SCH (20:30)
[2020-10-09] MEDS: AMITRIPTYLINE HCL 50 MG TAB PO SCH (20:31)
[2020-10-09] MEDS ORDERED: SODIUM CHLORIDE 0.9% 250 ML IV PRN (22:37)
--- NOTE | 2020-10-09 22:39 | Hospitalist Progress Note ---
Date of Service October 09, 2020 Assessment & Plan (1) Acute hypoxemic respiratory failure: uncertain if this is due to acute/chronic CHF, bronchitis, and/or pneumonia. COVID-19 PCR negative at admission. BioFire panel which includes COVID-19 was also negative. Remains on zosyn/vanco for ?right-sided pneumonia seen on admission cxr. MRSA swab negative and cxr today with pulmonary edema. stop vanco. Will keep zosyn 1 more day to follow her clinical response but suspect we can narrow abx soon. Cont diuresis. Cont bronchodilators. (2) Acute UTI (urinary tract infection): Pansensitive e.coli. zosyn covering. THIS IS COMPLICATED UTI / CATHETER-ASSOCIATED UTI as she has chronic indwelling suprapubic catheter. (3) Chronic right-sided congestive heart failure: acute/chronic. see above in resp failure. cont beta jody & IV diuretics. baseline dry weight is not fully certain. (4) Pneumonia: Admission cxr with right-sided infiltrate. Repeat cxr today mainly with pulmonary edema. I am uncertain if she has pneumonia vs acute bronchitis vs decompensated CHF vs combo of factors. Consider chest CT for more information. (5) Bronchitis: severe wheezing continues. patient had low-grade fever the night of admission. this still could be infectious bronchitis despite the negative biofire panel. wheezing could also be from pulm edema. cont bronchodilators. will add 1mg/kg of IV solumedrol and reassess response tomorrow. (6) Pulmonary hypertension: (7) Hypertension: cont home meds (8) Atrial fibrillation: controlled eliquis on hold due to anemia and heme + stool (9) Anemia: Hb still <8 repeat H/H and type/cross 2 units in the am may need transfusion of note - during last admission received 4 runs of IV venofer; retic was 3%; and b12/folate were wnl. (10) Type 2 diabetes mellitus with kidney complication, with long-term current use of insulin: cont basal-bolus insulin controlled, but likely will need adjustment in insulins due to addition of steroids (11) CAD (coronary artery disease): no ischemic sx's at this time cont BB cont statin (12) Indwelling Soto catheter present: suprapubic catheter this should likely be exchanged due to new UTI will need urology consultation for such (13) Restless leg syndrome: cont ropinirole (14) Chronic kidney disease, stage 3: baseline Cr about 1.4 creatinine slightly higher today in face of diuresis BMP am (15) Morbid obesity with BMI of 45.0-49.9, adult: BMI 45 (16) Paraplegia: acquired h/o lumbar back surgery and thoracic neuroendocrine tumor with resulting acquired paraplegia (17) DVT prophylaxis: SCDs chemical means contraindicated due to heme+ stool and anemia left message for on voicemail tonight Admission and Anticipated Discharge Date Admission Date: October 07, 2020 Subjective patient doesn't feel much better than yesterday. continues with brassy cough, wheezing, and with conversational speech she begins to talk & get short of breath. appetite still not the greatest. still with fatigue. no fevers. still requiring NC O2 intermittently. tele overnight with rate-controlled a.fib. Review of Systems Constitutional: + fatigue and + anorexia; no fever and no chills Respiratory: + cough, + dyspnea and + wheezing Cardiovascular: no chest pain Gastrointestinal: no abdominal pain Physical Exam Constitutional: + ill appearing and + morbidly obese; no acute distress and no altered mental status coughing frequently ENMT: external ear and nose normal, oropharynx normal Respiratory: no respiratory distress Auscultation: + crackles (bases ) and + wheezes (extensive b/l ) Cardiovascular: Rate/Rhythm: regular rate and + irregularly irregular Heart Sounds: normal S1, normal S2 and + murmur (2/6 RUSB systolic) Vessels: posterior tibial pulses present and dorsalis pedis pulses present; no JVD Extremities: + edema (1-2+ b/l) Gastrointestinal (Abdomen): normal bowel sounds, soft, nontender, no hepatosplenomegaly Percussion/Palpation: + hernia (reducible ) Psychiatric: Orientation: alert and oriented x 3 Results & Data Results & Data ([facility]) Vital Signs (Past 12 Hours) Vital Signs Temp Pulse Resp BP Pulse Ox 10/09/20 20:00 36.5 C 84 19 107/58 L 90 10/09/20 19:35 79 18 91 10/09/20 15:05 63 20 91 10/09/20 11:36 36.8 C 64 15 116/64 90 10/09/20 11:02 78 20 99 Laboratory Results Laboratory Results - last 24 hr 10/09/20 10/09/20 10/09/20 07:39 07:59 07:59 Hgb 7.6 L Hct 25.5 L Sodium 138 Potassium 3.5 Chloride 102 Carbon Dioxide 27 Anion Gap 9.0 BUN 36 H Creatinine 1.58 H Est Cr Clr Drug Dosing 36.0 Est GFR ( Amer) 36.5 Est GFR (Non-Af Amer) 31.5 BUN/Creatinine Ratio 22.6 H Glucose 116 H POC Glucose 119 H Calcium 8.9 10/09/20 10/09/20 10/09/20 11:35 16:22 20:39 Hgb Hct Sodium Potassium Chloride Carbon Dioxide Anion Gap BUN Creatinine Est Cr Clr Drug Dosing Est GFR ( Amer) Est GFR (Non-Af Amer) BUN/Creatinine Ratio Glucose POC Glucose 182 H 161 H 215 H Calcium urine cx results noted (pansensitive e.coli) PG Care Time/CCT Total # of Minutes Spent Total Time Spent with Patient: Total time spent is greater than 50% in coordination of care (as documented) at patient's floor/unit and/or counseling patient: Coding Level of Care Code 74712 Subseq Hosp Care Lvl 3 Diagnoses Acute hypoxemic respiratory failure J96.01 Acute UTI (urinary tract infection) N39.0 Chronic right-sided congestive heart failure I50.812 Pneumonia J18.9 Bronchitis J40 Pulmonary hypertension I27.20 Hypertension I10 Atrial fibrillation I48.91 Anemia D64.9 Type 2 diabetes mellitus with kidney complication, with long-term current use of insulin E11.29; Z79.4 CAD (coronary artery disease) I25.10 Indwelling Soto catheter present Z96.0 Restless leg syndrome G25.81 Chronic kidney disease, stage 3 N18.3 Morbid obesity with BMI of 45.0-49.9, adult E66.01; Z68.42 Paraplegia G82.20 DVT prophylaxis Z29.9
[2020-10-10] MEDS: PIPERACILLIN/TAZOBACTAM 4.5 GM in DEXTROSE 5% 100 ML IV SCH (06:08)
[2020-10-10] MEDS: ALBUT/IPRATROP 3MG/0.5MG NEB 3 ML VIAL NEB SCH ×4 (07:31→19:56)
[2020-10-10] MEDS: methylPREDNISolone 40 MG in SYRINGE 0 ML IV SCH ×3 (07:52→21:31)
[2020-10-10] MEDS: CHOLECALCIFEROL 1,000 UNITS 25 MCG TAB PO SCH (07:54)
[2020-10-10] MEDS: FERROUS SULFATE 325 MG TAB PO SCH ×2 (07:55→21:29)
[2020-10-10] MEDS: POTASSIUM CHLORIDE CRTAB 20 MEQ TABCR PO SCH ×3 (07:55→21:28)
[2020-10-10] MEDS: MAGNESIUM CHLORIDE 64MG DELAYED REL TAB PO SCH ×3 (07:56→21:29)
[2020-10-10] MEDS: METOPROLOL SUCC 25MG EXT REL TAB PO SCH (07:56)
[2020-10-10] MEDS: allopurinoL 100 MG TAB PO SCH (07:56)
[2020-10-10] MEDS: PANTOprazole 40 MG TAB PO SCH ×2 (07:56→21:27)
[2020-10-10] MEDS: ROSUVASTATIN CALCIUM 20 MG TAB PO SCH (07:56)
[2020-10-10] MEDS: hydrALAZINE HCL 25 MG TAB PO SCH ×3 (07:56→21:28)
[2020-10-10] MEDS: INSULIN ASPART 100 UNITS/ML 3 ML PEN SC SCH ×4 (07:59→21:31)
[2020-10-10] MEDS: INSULIN DETEMIR FLEXPEN/FLEX TOUCH 100 UNITS/ML 3ML SQ SCH ×2 (08:01→21:30)
[2020-10-10 08:39] LABS: Hematocrit (blood only) 27.3 % (37-47); Mean Corpuscular Hemoglobin 26.8 pg (25-34); Mean Corpuscular Hgb Conc 29.3 g/dL (32-36); Mean Corpuscular Volume 91.6 fL (80-100); Mean Platelet Volume 8.7 fL (7.4-10.4); Platelet Count 258 K/uL (130-400); RDW Coefficient of Variation 17.5 % (11.5-14.5); RDW Standard Deviation 59.2 fL (36.4-46.3); Red Blood Count 2.98 M/uL (4.2-5.4); White Blood Count 3.76 K/uL (4.8-10.8)
[2020-10-10 09:15] LABS: BUN Creatinine Ratio 22.9 (10-20); Calcium 9.3 mg/dl (8.5-10.1); Creatinine Clr Calc Pharmacy 33.5 ml/min; Est GFR (African American) 33.6; Potassium 3.9 mmol/L (3.5-5.1)
[2020-10-10] MEDS: FUROSEMIDE 40 MG in SYRINGE 0 ML IV SCH ×2 (10:37→21:26)
[2020-10-10] MEDS: ceFAZolin 1000MG 1,000 MG/7.5 ML SYR IV SCH ×2 (11:28→21:33)
--- NOTE | 2020-10-10 15:38 | Hospitalist Progress Note ---
Date of Service October 10, 2020 Assessment & Plan (1) Acute hypoxemic respiratory failure: Due to exacerbation of CHF. Will treat diastolic CHF and also right heart failure with parenteral diuretics. Monitor intake and output. Serial chest x- ray. COVID-19 PCR negative at admission. BioFire panel which includes COVID-19 was also negative. MRSA swab negative and cxr today with pulmonary edema. Cont diuresis. Cont bronchodilators. (2) Acute UTI (urinary tract infection): Pansensitive e.coli. Antibiotic deescalated to intravenous Ancef.. THIS IS COMPLICATED UTI / CATHETER-ASSOCIATED UTI as she has chronic indwelling suprapubic catheter. (3) Chronic right-sided congestive heart failure: acute/chronic. see above in resp failure. cont beta jody & IV diuretics. (4) Pneumonia: Ruled out. Does not appear the patient has pneumonia. Considering chest CT . (5) Bronchitis: severe wheezing continues. patient had low-grade fever the night of admission. this still could be infectious bronchitis despite the negative biofire panel. wheezing could also be from pulm edema. cont bronchodilators. will add 1mg/kg of IV solumedrol and reassess response tomorrow. (6) Pulmonary hypertension: (7) Hypertension: cont home meds (8) Atrial fibrillation: controlled eliquis on hold due to anemia and heme + stool (9) Anemia: Hb 8.0 today. No transfusion at this point. Will follow. Eliquis has been placed on hold . (10) Type 2 diabetes mellitus with kidney complication, with long-term current use of insulin: cont basal insulin. ADA diet. Sliding scale coverage controlled (11) CAD (coronary artery disease): no ischemic sx's at this time cont BB cont statin (12) Indwelling Soto catheter present: suprapubic catheter due to chronic neurogenic bladder (13) Restless leg syndrome: cont ropinirole (14) Chronic kidney disease, stage 3: baseline Cr about 1.4 creatinine slightly higher today in face of diuresis BMP am (15) Morbid obesity with BMI of 45.0-49.9, adult: BMI 45 (16) Paraplegia: acquired h/o lumbar back surgery and thoracic neuroendocrine tumor with resulting acquired paraplegia. Continue supportive care (17) DVT prophylaxis: SCDs chemical means contraindicated due to heme+ stool and anemia (18) Acute on chronic diastolic (congestive) heart failure: Parenteral Lasix diuresis. Monitor intake and output. Serial chest x- ray. Admission and Anticipated Discharge Date Admission Date: October 07, 2020 Subjective Alert and pleasant. Antibiotics tailored to intravenous Ancef for coverage of E. coli UTI. Continue parenteral Lasix. Chest x-ray consistent with exacerbation of acute on chronic diastolic CHF. She also has chronic right heart failure. Review of Systems Review of Systems: Constitutional-no fever or chills ENT-no blurred vision, no double vision, no epistaxis, no sore throat Respiratory-dyspnea on exertion Cardiac-no palpitations, no chest pain, no syncope GI-no nausea, vomiting, diarrhea, melena, hematochezia -no urinary retention, no urinary incontinence, no dysuria, no hematuria Musculoskeletal-no joint pain, no muscle tenderness Skin-no bruising, no rashes, no pruritus Neuro-chronic bilateral lower extremity paraplegia from post lumbar surgery complications Psych-no depression, no anxiety Physical Exam Physical Exam: General-alert and oriented x3, no fevers, no chills HEENT-head atraumatic and normocephalic, TMs intact bilaterally, pupils equal and reactive to light, extraocular muscles intact Neck-no lymphadenopathy or thyromegaly, trachea midline Chest-clear to auscultation percussion. No rales wheezing or rhonchi Cardiac-regular rate and rhythm, normal S1 and S2, no murmurs Abdomen-normal bowel sounds, nontender, no hepatosplenomegaly Extremities-no cyanosis, clubbing. Chronic bilateral lower extremity edema Neuro-cranial nerves II through XII intact. Chronic bilateral lower extremity paraplegia Psych-normal affect, normal mood Results & Data Results & Data ([facility]) Vital Signs (Past 12 Hours) Vital Signs Temp Pulse Resp BP Pulse Ox 10/10/20 15:20 56 L 16 87 L 10/10/20 11:38 36.8 C 87 20 162/70 H 91 10/10/20 11:04 84 18 98 10/10/20 07:46 36.8 C 64 18 151/79 H 100 10/10/20 07:32 16 Laboratory Results 10/10/20 08:03 10/10/20 08:03 PG Care Time/CCT Total # of Minutes Spent Total Time Spent with Patient: Total time spent is greater than 50% in coordination of care (as documented) at patient's floor/unit and/or counseling patient: Coding Level of Care Code 35418 Subseq Hosp Care Lvl 3 Diagnoses Acute hypoxemic respiratory failure J96.01 Acute UTI (urinary tract infection) N39.0 Chronic right-sided congestive heart failure I50.812 Pneumonia J18.9 Bronchitis J40 Pulmonary hypertension I27.20 Hypertension I10 Atrial fibrillation I48.91 Anemia D64.9 Type 2 diabetes mellitus with kidney complication, with long-term current use of insulin E11.29; Z79.4 CAD (coronary artery disease) I25.10 Indwelling Soto catheter present Z96.0 Restless leg syndrome G25.81 Chronic kidney disease, stage 3 N18.3 Morbid obesity with BMI of 45.0-49.9, adult E66.01; Z68.42 Paraplegia G82.20 DVT prophylaxis Z29.9 Acute on chronic diastolic (congestive) heart failure I50.33
[2020-10-10] MEDS: BACLOFEN 10 MG TAB PO SCH (21:27)
[2020-10-10] MEDS: AMITRIPTYLINE HCL 50 MG TAB PO SCH (21:28)
[2020-10-11] MEDS ORDERED: INSULIN HUMAN REGULAR PER UNIT 4 UNITS in SYRINGE 3.96 ML IV STA ×3 (00:33→05:35)
[2020-10-11] MEDS: ALBUT/IPRATROP 3MG/0.5MG NEB 3 ML VIAL NEB SCH ×4 (07:07→19:13)
[2020-10-11] MEDS: methylPREDNISolone 40 MG in SYRINGE 0 ML IV SCH (07:42)
[2020-10-11 08:43] LABS: BUN Creatinine Ratio 27.2 (10-20); Calcium 9.4 mg/dl (8.5-10.1); Est GFR (African American) 33.8; Est GFR (Non-African American) 29.2
[2020-10-11] MEDS: ROSUVASTATIN CALCIUM 20 MG TAB PO SCH (08:54)
[2020-10-11] MEDS: CHOLECALCIFEROL 1,000 UNITS 25 MCG TAB PO SCH (08:54)
[2020-10-11] MEDS: FERROUS SULFATE 325 MG TAB PO SCH ×2 (08:54→20:27)
[2020-10-11] MEDS: POTASSIUM CHLORIDE CRTAB 20 MEQ TABCR PO SCH ×3 (08:54→20:28)
[2020-10-11] MEDS: MAGNESIUM CHLORIDE 64MG DELAYED REL TAB PO SCH ×3 (08:54→20:29)
[2020-10-11] MEDS: hydrALAZINE HCL 25 MG TAB PO SCH ×3 (08:55→20:27)
[2020-10-11] MEDS: allopurinoL 100 MG TAB PO SCH (08:55)
[2020-10-11] MEDS: FUROSEMIDE 40 MG in SYRINGE 0 ML IV SCH (08:55)
[2020-10-11] MEDS: METOPROLOL SUCC 25MG EXT REL TAB PO SCH (08:55)
[2020-10-11] MEDS: PANTOprazole 40 MG TAB PO SCH ×2 (08:55→20:29)
[2020-10-11] MEDS: INSULIN DETEMIR FLEXPEN/FLEX TOUCH 100 UNITS/ML 3ML SQ SCH ×2 (08:56→20:25)
[2020-10-11] MEDS: INSULIN ASPART 100 UNITS/ML 3 ML PEN SC SCH ×4 (09:00→20:25)
[2020-10-11] MEDS ORDERED: FUROSEMIDE 40 MG in SYRINGE 0 ML IV SCH (09:30)
[2020-10-11] MEDS: ceFAZolin 1000MG 1,000 MG/7.5 ML SYR IV SCH ×2 (11:50→22:58)
--- NOTE | 2020-10-11 13:40 | Hospitalist Progress Note ---
Date of Service October 11, 2020 Assessment & Plan (1) Acute hypoxemic respiratory failure: Due to exacerbation of CHF. Will treat diastolic CHF and also right heart failure with parenteral diuretics. Monitor intake and output. Serial chest x- ray. COVID-19 PCR negative at admission. [employer] panel which includes COVID-19 was also negative. MRSA swab negative and cxr shows pulmonary edema. Cont diuresis. Cont bronchodilators. (2) Acute UTI (urinary tract infection): Pansensitive e.coli. Antibiotic deescalated to intravenous Ancef.. THIS IS COMPLICATED UTI / CATHETER-ASSOCIATED UTI as she has chronic indwelling suprapubic catheter. (3) Chronic right-sided congestive heart failure: acute/chronic. see above in resp failure. cont beta jody & IV diuretics. (4) Pneumonia: Ruled out. Does not appear the patient has pneumonia. Considering chest CT . (5) Bronchitis: severe wheezing resolved. Parenteral steroids discontinued. wheezing probably from pulm edema. cont bronchodilators. (6) Pulmonary hypertension: (7) Hypertension: cont home meds (8) Atrial fibrillation: controlled eliquis on hold due to anemia and heme + stool (9) Anemia: Hb now stable. No transfusion at this point. Will follow. Eliquis has been placed on hold . (10) Type 2 diabetes mellitus with kidney complication, with long-term current use of insulin: Basal insulin uptitrated today, October 11. Discontinuing parenteral steroids will lower the glucose level. ADA diet. Sliding scale coverage (11) CAD (coronary artery disease): no ischemic sx's at this time cont BB cont statin (12) Indwelling Soto catheter present: suprapubic catheter due to chronic neurogenic bladder (13) Restless leg syndrome: cont ropinirole (14) Chronic kidney disease, stage 3: baseline Cr about 1.4 creatinine very near baseline. Will follow. 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 Continue supportive care (17) DVT prophylaxis: SCDs chemical means contraindicated due to heme+ stool and anemia (18) Acute on chronic diastolic (congestive) heart failure: Parenteral Lasix diuresis. Monitor intake and output. Serial chest x- ray. Admission and Anticipated Discharge Date Admission Date: October 07, 2020 Subjective Alert and oriented. Parenteral steroids have aggravated her diabetes and insulin has been uptitrated. Steroids will be discontinued. Lasix dosage also uptitrated to 80 mg every 12 hours today, October 11. Chest x-ray done October 09 reveals continued CHF. Review of Systems Review of Systems: Constitutional-no fever or chills ENT-no blurred vision, no double vision, no epistaxis, no sore throat Respiratory-dyspnea on exertion Cardiac-no palpitations, no chest pain, no syncope GI-no nausea, vomiting, diarrhea, melena, hematochezia -no urinary retention, no urinary incontinence, no dysuria, no hematuria Musculoskeletal-no joint pain, no muscle tenderness Skin-no bruising, no rashes, no pruritus Neuro-chronic bilateral lower extremity paraplegia from post lumbar surgery complications Psych-no depression, no anxiety Constitutional: + fatigue and + anorexia; no fever and no chills Ear, Nose, Mouth, Throat: no loss of taste or smell Respiratory: + cough, + dyspnea and + wheezing Physical Exam Physical Exam: General-alert and oriented x3, no fevers, no chills HEENT-head atraumatic and normocephalic, TMs intact bilaterally, pupils equal and reactive to light, extraocular muscles intact Neck-no lymphadenopathy or thyromegaly, trachea midline Chest-clear to auscultation percussion. No rales wheezing or rhonchi Cardiac-regular rate and rhythm, normal S1 and S2, no murmurs Abdomen-normal bowel sounds, nontender, no hepatosplenomegaly Extremities-no cyanosis, clubbing. Chronic bilateral lower extremity edema Neuro-cranial nerves II through XII intact. Chronic bilateral lower extremity paraplegia Psych-normal affect, normal mood Results & Data Results & Data ([facility]) Vital Signs (Past 12 Hours) Vital Signs Temp Pulse Pulse Resp BP Pulse Ox 10/11/20 12:11 36.6 C 72 18 136/63 95 10/11/20 11:12 95 H 16 98 10/11/20 07:26 36.4 C L 86 20 129/73 96 10/11/20 07:08 70 16 96 10/11/20 04:41 36.5 C 82 18 143/67 H 97 Laboratory Results 10/10/20 08:03 10/11/20 07:55 PG Care Time/CCT Total # of Minutes Spent Total Time Spent with Patient: Total time spent is greater than 50% in coordination of care (as documented) at patient's floor/unit and/or counseling patient: Coding Level of Care Code 95911 Subseq Hosp Care Lvl 3 Diagnoses Acute hypoxemic respiratory failure J96.01 Acute UTI (urinary tract infection) N39.0 Chronic right-sided congestive heart failure I50.812 Pneumonia J18.9 Bronchitis J40 Pulmonary hypertension I27.20 Hypertension I10 Atrial fibrillation I48.91 Anemia D64.9 Type 2 diabetes mellitus with kidney complication, with long-term current use of insulin E11.29; Z79.4 CAD (coronary artery disease) I25.10 Indwelling Soto catheter present Z96.0 Restless leg syndrome G25.81 Chronic kidney disease, stage 3 N18.3 Morbid obesity with BMI of 45.0-49.9, adult E66.01; Z68.42 Paraplegia G82.20 DVT prophylaxis Z29.9 Acute on chronic diastolic (congestive) heart failure I50.33
[2020-10-11] MEDS: FUROSEMIDE 80 MG in SYRINGE 0 ML IV SCH (20:27)
[2020-10-11] MEDS: BACLOFEN 10 MG TAB PO SCH (20:28)
[2020-10-11] MEDS: AMITRIPTYLINE HCL 50 MG TAB PO SCH (20:28)
[2020-10-11] MEDS ORDERED: VANCOMYCIN TROUGH ONE (21:30)
[2020-10-11 21:58] LABS: BUN Creatinine Ratio 32.2 (10-20); Calcium 9.4 mg/dl (8.5-10.1); Creatinine Clr Calc Pharmacy 35.2 ml/min; Est GFR (African American) 35.4; Est GFR (Non-African American) 30.5; Magnesium 2.4 mg/dl (1.8-2.4); Phosphorus 2.9 mg/dl (2.5-4.9); Potassium 3.8 mmol/L (3.5-5.1)
[2020-10-12] MEDS: ALBUT/IPRATROP 3MG/0.5MG NEB 3 ML VIAL NEB SCH ×4 (07:19→20:18)
[2020-10-12 08:34] LABS: BUN Creatinine Ratio 32.8 (10-20); Calcium 9.3 mg/dl (8.5-10.1); Creatinine Clr Calc Pharmacy 35.8 ml/min; Est GFR (African American) 36.5; Est GFR (Non-African American) 31.5; Potassium 3.8 mmol/L (3.5-5.1)
[2020-10-12] MEDS: PANTOprazole 40 MG TAB PO SCH ×2 (08:47→21:05)
[2020-10-12] MEDS: allopurinoL 100 MG TAB PO SCH (08:47)
[2020-10-12] MEDS: ROSUVASTATIN CALCIUM 20 MG TAB PO SCH (08:47)
[2020-10-12] MEDS: hydrALAZINE HCL 25 MG TAB PO SCH ×3 (08:47→21:05)
[2020-10-12] MEDS: CHOLECALCIFEROL 1,000 UNITS 25 MCG TAB PO SCH (08:47)
[2020-10-12] MEDS: POTASSIUM CHLORIDE CRTAB 20 MEQ TABCR PO SCH ×3 (08:48→21:05)
[2020-10-12] MEDS: FERROUS SULFATE 325 MG TAB PO SCH ×2 (08:48→21:06)
[2020-10-12] MEDS: MAGNESIUM CHLORIDE 64MG DELAYED REL TAB PO SCH ×3 (08:48→21:06)
[2020-10-12] MEDS: METOPROLOL SUCC 25MG EXT REL TAB PO SCH (08:48)
[2020-10-12] MEDS: INSULIN DETEMIR FLEXPEN/FLEX TOUCH 100 UNITS/ML 3ML SQ SCH ×2 (08:49→21:07)
[2020-10-12] MEDS: FUROSEMIDE 80 MG in SYRINGE 0 ML IV SCH ×2 (08:49→21:03)
[2020-10-12] MEDS: INSULIN ASPART 100 UNITS/ML 3 ML PEN SC SCH ×4 (08:52→21:07)
[2020-10-12] MEDS: ceFAZolin 1000MG 1,000 MG/7.5 ML SYR IV SCH ×2 (11:22→23:48)
[2020-10-12] MEDS: ACETAMINOPHEN 325 MG TAB PO PRN (14:16)
--- NOTE | 2020-10-12 16:45 | Hospitalist Progress Note ---
Date of Service October 12, 2020 Assessment & Plan (1) Acute hypoxemic respiratory failure: CXR shows pulmonary edema. AHRF likely 2' to CHF exacerbation COVID-19 PCR negative at admission, [employer] panel which includes COVID-19 was also negative. MRSA swab negative (2) Acute on chronic diastolic (congestive) heart failure: Will treat diastolic CHF and also right heart failure with IV diuretics. She stated that she takes lasix 60mg BID at home -- received lasix 80mg IV BID here Monitor intake and output, daily weights 11-11 negative 2910ml for 24 hour period weight down 9 kg this hospitalization (3) Complicated UTI (urinary tract infection): Related to chronic indwelling suprapubic catheter 11-6 urine Cx with > 100,000 CFU pansensitive e.coli. Zosyn deescalated to intravenous Ancef (4) Chronic right-sided congestive heart failure: acute/chronic. see above in resp failure. cont beta jody & IV diuretics. (5) Paraplegia: acquired h/o lumbar back surgery and thoracic neuroendocrine tumor with resulting acquired paraplegia. Continue supportive care suprapubic catheter for neurogenic bladder (6) Bronchitis: severe wheezing resolved. Parenteral steroids discontinued. wheezing probably from pulm edema. cont bronchodilators. (7) Hypertension: cont home meds (8) Atrial fibrillation: controlled restart eliquis (9) Anemia: Hb now stable. No transfusion at this point. Will follow. restarted eliquis, monitor CBC daily (10) Type 2 diabetes mellitus with kidney complication, with long-term current use of insulin: Basal insulin uptitrated today, October 11. Discontinuing parenteral steroids will lower the glucose level. ADA diet. Sliding scale coverage (11) CAD (coronary artery disease): no ischemic sx's at this time cont BB cont statin (12) Indwelling Soto catheter present: suprapubic catheter due to chronic neurogenic bladder (13) Restless leg syndrome: cont ropinirole (14) Chronic kidney disease, stage 3: baseline Cr about 1.4 creatinine very near baseline. Will follow. BMP am (15) Morbid obesity with BMI of 45.0-49.9, adult: BMI 45 (16) DVT prophylaxis: started eliquis and luis hose home once medically stable Admission and Anticipated Discharge Date Admission Date: October 07, 2020 Subjective Patient endorses wheezing and lower extremity edema, improving with lasix. Denies cough, denies chest pain. No abd pain, nausea or vomiting. Tolerating diet. Review of Systems Constitutional: no fever, no chills, no fatigue, no weakness, no anorexia, no weight loss and no weight gain Ear, Nose, Mouth, Throat: no nasal congestion, no sore throat and no dysphagia Respiratory: + dyspnea; no cough Cardiovascular: no chest pain, no dyspnea on exertion, no orthopnea and no palpitations Gastrointestinal: no abdominal pain, no nausea, no vomiting, no hematemesis, no dysphagia, no constipation, no diarrhea/loose stools, no blood in stools and no melena Genitourinary: no dysuria, no urinary frequency, no hematuria and no flank pain Musculoskeletal: no back pain, no joint pain, no myalgia and no muscle weakness Integumentary: no rash, no lesions, no skin ulcer, no erythema, no dry skin and no pruritus Neurologic: no falls, no localized weakness, no generalized weakness, no numbness, no paresthesia, no tremor(s) and no headache(s) Psychiatric: no depression, no suicidal ideation, no homicidal ideation and no anxiety Endocrine: no cold intolerance and no heat intolerance Hematologic / Lymphatic: no easy bleeding and no easy bruising Physical Exam Constitutional: well developed, well nourished and + morbidly obese; no acute distress Eyes: PERRL, conjunctivae normal, anicteric sclerae ENMT: Mouth: oral mucous membranes not dry Respiratory: normal respiratory effort; no respiratory distress and no labored breathing Auscultation: lungs clear to auscultation bilaterally and + wheezes; no crackles, no rales and no rhonchi Cardiovascular: Rate/Rhythm: regular rate and regular rhythm Heart Sounds: no murmur and no cardiac rub Vessels: normal peripheral pulses and radial pulses present; no JVD Extremities: + edema (4+ bilateral LE pitting edema) Gastrointestinal (Abdomen): Inspection/Auscultation: abdomen normal to inspection and normal bowel sounds; abdomen not distended Percussion/Palpation: abdomen soft; abdomen nontender, no guarding, abdomen not rigid and no hepatosplenomegaly Musculoskeletal: Head/Neck/Chest: normocephalic and head atraumatic Spine: no cervical spinal tenderness, no cervical muscular tenderness, no thoracic spinal tenderness and no lumbar spinal tenderness Skin: no rashes, warm and dry Neurologic: CN's II-XI intact bilaterally and moves all extremities Motor/Sensory: no tremor and no sensory deficit Psychiatric: Orientation: alert, oriented to person, oriented to place and oriented to time Apperance: appropriately groomed; not disheveled Affect: euthymic affect; no anxious affect and no tearful affect Genitourinary: no CVA tenderness suprapubic catheter Results & Data Results & Data ([facility]) Vital Signs (Past 12 Hours) Vital Signs Temp Pulse Resp BP Pulse Ox 10/12/20 15:37 74 20 88 L 10/12/20 11:03 36.4 C L 77 20 109/60 90 10/12/20 11:02 66 20 93 10/12/20 07:30 36.6 C 92 H 18 120/93 98 10/12/20 07:20 84 20 98 Laboratory Results Abnormal lab results 10/11/20 10/11/20 10/11/20 Range/Units 16:30 20:23 21:25 Sodium 135 L (136-145) mmol/L BUN 52 H (7-18) mg/dl Creatinine 1.62 H (0.6-1.2) mg/dl BUN/Creatinine Ratio 32.2 H (10-20) Glucose 208 H (70-99) mg/dl POC Glucose 281 H 234 H (70-99) mg/dl 10/12/20 10/12/20 10/12/20 Range/Units 04:02 07:37 07:47 Sodium (136-145) mmol/L BUN 52 H (7-18) mg/dl Creatinine 1.58 H (0.6-1.2) mg/dl BUN/Creatinine Ratio 32.8 H (10-20) Glucose 145 H (70-99) mg/dl POC Glucose 196 H 166 H (70-99) mg/dl 10/12/20 10/12/20 Range/Units 11:25 16:15 Sodium (136-145) mmol/L BUN (7-18) mg/dl Creatinine (0.6-1.2) mg/dl BUN/Creatinine Ratio (-20) Glucose (70-99) mg/dl POC Glucose 197 H 127 H (70-99) mg/dl Medications Administered Current Inpatient Medications Acetaminophen (Acetaminophen 325 Mg Tab) 650 mg PO Q4H PRN PRN Reason: Pain or Fever Stop: 11/07/20 00:45 Last Admin: 10/12/20 14:16 Dose: 650 mg Documented by: Albuterol (Albut/Ipratrop 3mg/0.5mg Neb 3 Ml Vial) 3 ml NEB QIDR [facility] Stop: 11/07/20 06:59 Last Admin: 10/12/20 15:33 Dose: 3 ml Documented by: Allopurinol (Allopurinol 100 Mg Tab) 100 mg PO QAM [facility] Stop: 11/07/20 08:59 Last Admin: 10/12/20 08:47 Dose: 100 mg Documented by: Amitriptyline HCl (Amitriptyline Hcl 50 Mg Tab) 50 mg PO HS [facility] Stop: 11/07/20 20:59 Last Admin: 10/11/20 20:28 Dose: 50 mg Documented by: Apixaban (Apixaban 5 Mg Tablet) 5 mg PO BID [facility] Stop: 11/07/20 01:44 Last Admin: 10/08/20 08:14 Dose: Not Given Documented by: Baclofen (Baclofen 10 Mg Tab) 5 mg PO HS [facility] Stop: 11/07/20 20:59 Last Admin: 10/11/20 20:28 Dose: 5 mg Documented by: Ferrous Sulfate (Ferrous Sulfate 325 Mg Tab) 325 mg PO BID [facility] Stop: 11/07/20 01:44 Last Admin: 10/12/20 08:48 Dose: 325 mg Documented by: Furosemide (Furosemide 80 Mg Tab) 80 mg PO BID17 [facility] Stop: 11/07/20 08:59 Last Admin: 10/08/20 08:04 Dose: 80 mg Documented by: Hydralazine HCl (Hydralazine Hcl 25 Mg Tab) 25 mg PO TID [facility] Stop: 11/07/20 08:59 Last Admin: 10/12/20 13:59 Dose: 25 mg Documented by: Cefazolin Sodium (Ancef 1000mg) 1,000 mg in 7.5 mls @ 2.5 mls/min IV Q12H [facility]; Protocol Stop: 10/20/20 10:59 Last Admin: 10/12/20 11:22 Dose: 2.5 mls/min Documented by: Furosemide 80 mg/ Syringe 8 mls @ 4 mls/min IV Q12 [facility] Stop: 11/10/20 20:59 Last Admin: 10/12/20 08:49 Dose: 4 mls/min Documented by: Insulin Aspart (Insulin Aspart 100 Units/Ml 3 Ml Pen) 0 units SC ACHS [facility] Stop: 11/07/20 07:29 Last Admin: 10/12/20 12:11 Dose: 6 units Documented by: Insulin Detemir (Insulin Detemir Flexpen/Flex Touch 100 Units/Ml 3ml) 25 units SQ BID [facility] Stop: 11/10/20 08:59 Last Admin: 10/12/20 08:49 Dose: 25 units Documented by: Magnesium Chloride (Magnesium Chloride 64mg Delayed Rel Tab) 64 mg PO TID [facility] Stop: 11/07/20 08:59 Last Admin: 10/12/20 13:59 Dose: 64 mg Documented by: Metoprolol Succinate (Metoprolol Succ 25mg Ext Rel Tab) 25 mg PO DAILY [facility] Stop: 11/07/20 08:59 Last Admin: 10/12/20 08:48 Dose: 25 mg Documented by: Nitroglycerin (Nitroglycerin Sl 0.4 Mg/Tab Tab) 0.4 mg SL UD PRN PRN Reason: Chest Pain Stop: 11/07/20 00:45 Ondansetron HCl (Ondansetron Inj 2 Mg/Ml 2 Ml Vial) 4 mg IV Q6H PRN PRN Reason: Nausea Stop: 11/07/20 00:45 Pantoprazole Sodium (Pantoprazole 40 Mg Tab) 40 mg PO BID [facility] Stop: 11/07/20 01:44 Last Admin: 10/12/20 08:47 Dose: 40 mg Documented by: Polyethylene Glycol (Polyethylene (Miralax) 17 Gm Pack) 17 gm PO DAILY [facility] Stop: 11/12/20 08:59 Potassium Chloride (Potassium Chloride 20 Meq Tabcr) 20 meq PO TID [facility] Stop: 11/08/20 13:59 Last Admin: 10/12/20 13:59 Dose: 20 meq Documented by: Ropinirole HCl (Ropinirole Hcl 5 Mg Tablet) 5 mg PO QID [facility] Stop: 11/07/20 08:59 Last Admin: 10/12/20 12:13 Dose: 5 mg Documented by: Rosuvastatin Calcium (Rosuvastatin Calcium 20 Mg Tab) 40 mg PO DAILY [facility] Stop: 11/07/20 08:59 Last Admin: 10/12/20 08:47 Dose: 40 mg Documented by: Senna/Docusate Sodium (Docusate Sodium/Senna 50/8.6mg Tab) [facility] [place] [facility] [place]: 11/12/20 08:59 Vitamin D (Cholecalciferol 1,000 Units 25 Mcg Tab) 5,000 units PO QAM [facility] Stop: 11/07/20 08:59 Last Admin: 10/12/20 08:47 Dose: 5,000 units Documented by: PG Care Time/CCT Total # of Minutes Spent Total Time Spent with Patient: Total time spent is greater than 50% in coordination of care (as documented) at patient's floor/unit and/or counseling patient: Coding Level of Care Code 07152 Subseq Hosp Care Lvl 3 Diagnoses Acute hypoxemic respiratory failure J96.01 Acute on chronic diastolic (congestive) heart failure I50.33 Complicated UTI (urinary tract infection) N39.0 Chronic right-sided congestive heart failure I50.812 Paraplegia G82.20 Bronchitis J40 Hypertension I10 Hypertension type: unspecified Atrial fibrillation I48.91 Anemia D64.9 Type 2 diabetes mellitus with kidney complication, with long-term current use of insulin E11.29; Z79.4 CAD (coronary artery disease) I25.10 Indwelling Soto catheter present Z96.0 Restless leg syndrome G25.81 Chronic kidney disease, stage 3 N18.3 Morbid obesity with BMI of 45.0-49.9, adult E66.01; Z68.42 DVT prophylaxis Z29.9 (1) Hypertension Hypertension type: unspecified Qualified Code(s): I10 - Essential (primary) hypertension
[2020-10-12] MEDS: APIXABAN 5 MG TABLET PO SCH (21:04)
[2020-10-12] MEDS: AMITRIPTYLINE HCL 50 MG TAB PO SCH (21:04)
[2020-10-12] MEDS: BACLOFEN 10 MG TAB PO SCH (21:05)
[2020-10-13 06:03] LABS: Hematocrit (blood only) 26.2 % (37-47); Hemoglobin 7.9 g/dL (12.0-16.0); Mean Corpuscular Hemoglobin 27.3 pg (25-34); Mean Corpuscular Hgb Conc 30.2 g/dL (32-36); Mean Corpuscular Volume 90.7 fL (80-100); Mean Platelet Volume 8.1 fL (7.4-10.4); Platelet Count 244 K/uL (130-400); RDW Coefficient of Variation 17.4 % (11.5-14.5); RDW Standard Deviation 58.1 fL (36.4-46.3); Red Blood Count 2.89 M/uL (4.2-5.4); White Blood Count 7.01 K/uL (4.8-10.8)
[2020-10-13 06:29] LABS: BUN Creatinine Ratio 35.1 (10-20); Calcium 8.7 mg/dl (8.5-10.1); Creatinine Clr Calc Pharmacy 40.4 ml/min; Est GFR (African American) 39.1; Est GFR (Non-African American) 33.8; Potassium 3.6 mmol/L (3.5-5.1)
[2020-10-13] MEDS: ALBUT/IPRATROP 3MG/0.5MG NEB 3 ML VIAL NEB SCH ×4 (07:37→20:37)
[2020-10-13] MEDS: FUROSEMIDE 80 MG in SYRINGE 0 ML IV SCH ×2 (07:38→20:23)
[2020-10-13] MEDS: FERROUS SULFATE 325 MG TAB PO SCH ×2 (07:38→20:28)
[2020-10-13] MEDS: MAGNESIUM CHLORIDE 64MG DELAYED REL TAB PO SCH ×3 (07:38→20:26)
[2020-10-13] MEDS: POTASSIUM CHLORIDE CRTAB 20 MEQ TABCR PO SCH ×3 (07:39→20:28)
[2020-10-13] MEDS: PANTOprazole 40 MG TAB PO SCH ×2 (07:39→20:26)
[2020-10-13] MEDS: APIXABAN 5 MG TABLET PO SCH ×2 (07:40→20:29)
[2020-10-13] MEDS: hydrALAZINE HCL 25 MG TAB PO SCH ×3 (07:40→20:29)
[2020-10-13] MEDS: ROSUVASTATIN CALCIUM 20 MG TAB PO SCH (07:41)
[2020-10-13] MEDS: CHOLECALCIFEROL 1,000 UNITS 25 MCG TAB PO SCH (07:41)
[2020-10-13] MEDS: METOPROLOL SUCC 25MG EXT REL TAB PO SCH (07:41)
[2020-10-13] MEDS: DOCUSATE SODIUM/SENNA 50/8.6MG TAB PO SCH (07:41)
[2020-10-13] MEDS: allopurinoL 100 MG TAB PO SCH (07:41)
[2020-10-13] MEDS: POLYETHYLENE (MIRALAX) 17 GM PACK PO SCH (07:42)
[2020-10-13] MEDS: INSULIN ASPART 100 UNITS/ML 3 ML PEN SC SCH ×4 (08:23→20:43)
[2020-10-13] MEDS: INSULIN DETEMIR FLEXPEN/FLEX TOUCH 100 UNITS/ML 3ML SQ SCH ×2 (08:24→20:41)
--- NOTE | 2020-10-13 08:26 | Hospitalist Progress Note ---
Date of Service October 13, 2020 Assessment & Plan (1) Acute hypoxemic respiratory failure: CXR shows pulmonary edema. AHRF likely 2' to CHF exacerbation COVID-19 PCR negative at admission, [employer] panel which includes COVID-19 was also negative. MRSA swab negative (2) Acute on chronic diastolic (congestive) heart failure: Will treat diastolic CHF and also right heart failure with IV diuretics. She stated that she takes lasix 60mg BID at home -- received lasix 80mg IV BID here Monitor intake and output, daily weights 10-07 121.6kg 10-13 113.5kg (3) Complicated UTI (urinary tract infection): Related to chronic indwelling suprapubic catheter 10-07 urine Cx with > 100,000 CFU pansensitive e.coli. 10-07 evening to 10-10 zosyn 10-10 transitioned to intravenous cefazolin, to be completed 10-14 evening discussed with urology Dr. Richmond -- no need to exchange suprapubic catheter at this time (4) Chronic right-sided congestive heart failure: acute/chronic. see above in resp failure. cont beta jody & IV diuretics. (5) Paraplegia: acquired h/o lumbar back surgery and thoracic neuroendocrine tumor with resulting acquired paraplegia. Continue supportive care suprapubic catheter for neurogenic bladder (6) Bronchitis: severe wheezing resolved. Parenteral steroids discontinued. wheezing probably from pulm edema. cont bronchodilators. (7) Hypertension: cont home meds (8) Atrial fibrillation: controlled 10-12 restarted eliquis (9) Anemia: Hb now stable. monitor CBC daily (10) Type 2 diabetes mellitus with kidney complication, with long-term current use of insulin: Basal insulin uptitrated today, October 11. Discontinuing parenteral steroids will lower the glucose level. ADA diet. Sliding scale coverage (11) CAD (coronary artery disease): no ischemic sx's at this time cont BB cont statin (12) Indwelling Soto catheter present: suprapubic catheter due to chronic neurogenic bladder (13) Restless leg syndrome: cont ropinirole (14) Chronic kidney disease, stage 3: baseline Cr about 1.4 creatinine very near baseline. Will follow. BMP am (15) Morbid obesity with BMI of 45.0-49.9, adult: BMI 45 (16) DVT prophylaxis: started eliquis and luis hose home once medically stable, home is handicap accessible and daily caregivers are present Admission and Anticipated Discharge Date Admission Date: October 07, 2020 Subjective Slept well, tolerating diet. States her suprapubic catheter is exchanged every month on the . Edema continues to improve. Making plenty of urine. No SOB, no cough. Back on eliquis since yesterday, no change in stools, no other obvious blood loss. Patient endorsing sensation of solid food getting stuck in esophagus -- occurs with meat and bread. Has never had an EGD. Review of Systems Constitutional: no fever, no chills, no fatigue, no weakness, no anorexia, no weight loss and no weight gain Ear, Nose, Mouth, Throat: no nasal congestion, no sore throat and no dysphagia Respiratory: no cough and no dyspnea Cardiovascular: + edema; no chest pain, no dyspnea on exertion, no orthopnea and no palpitations Gastrointestinal: + dysphagia; no abdominal pain, no nausea, no vomiting, no hematemesis, no constipation, no diarrhea/loose stools, no blood in stools and no melena Genitourinary: no dysuria, no urinary frequency, no hematuria and no flank pain Musculoskeletal: no back pain, no joint pain, no myalgia and no muscle weakness Integumentary: no rash, no lesions, no skin ulcer, no erythema, no dry skin and no pruritus Neurologic: no falls, no localized weakness, no generalized weakness, no numbness, no paresthesia, no tremor(s) and no headache(s) Psychiatric: no depression, no suicidal ideation, no homicidal ideation and no anxiety Endocrine: no cold intolerance and no heat intolerance Hematologic / Lymphatic: no easy bleeding and no easy bruising Physical Exam Constitutional: well developed, well nourished and + morbidly obese; no acute distress Eyes: PERRL, conjunctivae normal, anicteric sclerae ENMT: Mouth: oral mucous membranes not dry Respiratory: normal respiratory effort; no respiratory distress and no labored breathing Auscultation: lungs clear to auscultation bilaterally and + wheezes; no crackles, no rales and no rhonchi Cardiovascular: Rate/Rhythm: regular rate and regular rhythm Heart Sounds: no murmur and no cardiac rub Vessels: normal peripheral pulses and radial pulses present; no JVD Extremities: + edema (4+ bilateral LE pitting edema) Gastrointestinal (Abdomen): Inspection/Auscultation: abdomen normal to inspection and normal bowel sounds; abdomen not distended Percussion/Palpation: abdomen soft; abdomen nontender, no guarding, abdomen not rigid and no hepatosplenomegaly Musculoskeletal: Head/Neck/Chest: normocephalic and head atraumatic Spine: no cervical spinal tenderness, no cervical muscular tenderness, no thoracic spinal tenderness and no lumbar spinal tenderness Skin: no rashes, warm and dry Neurologic: CN's II-XI intact bilaterally and moves all extremities Motor/Sensory: no tremor and no sensory deficit Psychiatric: Orientation: alert, oriented to person, oriented to place and oriented to time Apperance: appropriately groomed; not disheveled Affect: euthymic affect; no anxious affect and no tearful affect Genitourinary: no CVA tenderness suprapubic catheter with clear yellow urine Results & Data Results & Data ([facility]) Vital Signs (Past 12 Hours) Vital Signs Temp Pulse Resp BP Pulse Ox 10/13/20 07:40 94 H 16 92 10/13/20 07:33 36.6 C 74 16 117/74 92 10/13/20 02:59 36.6 C 71 18 113/64 92 10/12/20 23:26 36.7 C 76 18 122/72 92 Laboratory Results Abnormal lab results 10/12/20 10/12/20 10/12/20 Range/Units 07:47 11:25 16:15 RBC (4.2-5.4) M/uL Hgb (12.0-16.0) g/dL Hct (37-47) % MCHC (32-36) g/dL RDW Std Deviation (36.4-46.3) fL RDW Coeff of Lelo (11.5-14.5) % BUN 52 H (7-18) mg/dl Creatinine 1.58 H (0.6-1.2) mg/dl BUN/Creatinine Ratio 32.8 H (10-20) Glucose 145 H (70-99) mg/dl POC Glucose 197 H 127 H (70-99) mg/dl 10/12/20 10/13/20 10/13/20 Range/Units 20:45 05:55 05:55 RBC 2.89 L (4.2-5.4) M/uL Hgb 7.9 L (12.0-16.0) g/dL Hct 26.2 L (37-47) % MCHC 30.2 L (32-36) g/dL RDW Std Deviation 58.1 H (36.4-46.3) fL RDW Coeff of Lelo 17.4 H (11.5-14.5) % BUN 52 H (7-18) mg/dl Creatinine 1.49 H (0.6-1.2) mg/dl BUN/Creatinine Ratio 35.1 H (10-20) Glucose 66 L (70-99) mg/dl POC Glucose 145 H (70-99) mg/dl Medications Administered Current Inpatient Medications Acetaminophen (Acetaminophen 325 Mg Tab) 650 mg PO Q4H PRN PRN Reason: Pain or Fever Stop: 11/07/20 00:45 Last Admin: 10/12/20 14:16 Dose: 650 mg Documented by: Albuterol (Albut/Ipratrop 3mg/0.5mg Neb 3 Ml Vial) 3 ml NEB QIDR [facility] Stop: 11/07/20 06:59 Last Admin: 10/13/20 07:37 Dose: 3 ml Documented by: Allopurinol (Allopurinol 100 Mg Tab) 100 mg PO QAM [facility] Stop: 11/07/20 08:59 Last Admin: 10/13/20 07:41 Dose: 100 mg Documented by: Amitriptyline HCl (Amitriptyline Hcl 50 Mg Tab) 50 mg PO [facility] Stop: 11/07/20 20:59 Last Admin: 10/12/20 21:04 Dose: 50 mg Documented by: Apixaban (Apixaban 5 Mg Tablet) 5 mg PO BID [facility] Stop: 11/11/20 20:59 Last Admin: 10/13/20 07:40 Dose: 5 mg Documented by: Baclofen (Baclofen 10 Mg Tab) 5 mg PO [facility] Stop: 11/07/20 20:59 Last Admin: 10/12/20 21:05 Dose: 5 mg Documented by: Dextrose (Dextrose 50% 50 Ml Syringe) 25 - 50 ml IV UD PRN; Protocol PRN Reason: Hypoglycemia Protocol Stop: 11/07/20 00:45 Ferrous Sulfate (Ferrous Sulfate 325 Mg Tab) 325 mg PO BID [facility] Stop: 11/07/20 01:44 Last Admin: 11/12/20 07:38 Dose: 325 mg Documented by: Furosemide (Furosemide 80 Mg Tab) 80 mg PO BID17 [facility] Stop: 11/07/20 08:59 Last Admin: 10/08/20 08:04 Dose: 80 mg Documented by: Glucagon (Glucagon For Inj 1 Mg Vial) 1 mg SQ UD PRN; Protocol PRN Reason: Hypoglycemia Protocol Stop: 11/07/20 00:45 Glucose (Glucose 10 Tabs/Tube) 4 - 8 tabs PO UD PRN; Protocol PRN Reason: Hypoglycemia Protocol Stop: 11/07/20 00:45 Glucose (Glucose 40% Gel 15 Gm Tube) 15 - 30 gm PO UD PRN; Protocol PRN Reason: Hypoglycemia Protocol Stop: 11/07/20 00:45 Hydralazine HCl (Hydralazine Hcl 25 Mg Tab) 25 mg PO TID [facility] Stop: 11/07/20 08:59 Last Admin: 10/13/20 07:40 Dose: Not Given Documented by: Cefazolin Sodium (Ancef 1000mg) 1,000 mg in 7.5 mls @ 2.5 mls/min IV Q12H [facility]; Protocol Stop: 10/20/20 10:59 Last Admin: 10/12/20 23:48 Dose: 2.5 mls/min Documented by: Furosemide 80 mg/ Syringe 8 mls @ 4 mls/min IV Q12 [facility] Stop: 11/10/20 20:59 Last Admin: 10/13/20 07:38 Dose: 4 mls/min Documented by: Insulin Aspart (Insulin Aspart 100 Units/Ml 3 Ml Pen) 0 units SC ACHS [facility] Stop: 11/07/20 07:29 Last Admin: 10/13/20 08:23 Dose: 5 units Documented by: Insulin Detemir (Insulin Detemir Flexpen/Flex Touch 100 Units/Ml 3ml) 25 units SQ BID [facility] Stop: 11/10/20 08:59 Last Admin: 10/13/20 08:24 Dose: 25 units Documented by: Magnesium Chloride (Magnesium Chloride 64mg Delayed Rel Tab) 64 mg PO TID [facility] Stop: 11/07/20 08:59 Last Admin: 10/13/20 07:38 Dose: 64 mg Documented by: Metoprolol Succinate (Metoprolol Succ 25mg Ext Rel Tab) 25 mg PO DAILY [facility] Stop: 11/07/20 08:59 Last Admin: 10/13/20 07:41 Dose: 25 mg Documented by: Miscellaneous (Carbohydrates For Hypoglycemia ) 15 - 30 gm PO UD PRN PRN Reason: Hypoglycemia Protocol Stop: 11/07/20 00:45 Nitroglycerin (Nitroglycerin Sl 0.4 Mg/Tab Tab) 0.4 mg SL UD PRN PRN Reason: Chest Pain Stop: 11/07/20 00:45 Ondansetron HCl (Ondansetron Inj 2 Mg/Ml 2 Ml Vial) 4 mg IV Q6H PRN PRN Reason: Nausea Stop: 11/07/20 00:45 Pantoprazole Sodium (Pantoprazole 40 Mg Tab) 40 mg PO BID [facility] Stop: 11/07/20 01:44 Last Admin: 10/13/20 07:39 Dose: 40 mg Documented by: Polyethylene Glycol (Polyethylene (Miralax) 17 Gm Pack) 17 gm PO DAILY [facility] Stop: 11/12/20 08:59 Last Admin: 10/13/20 07:42 Dose: 17 gm Documented by: Potassium Chloride (Potassium Chloride 20 Meq Tabcr) 20 meq PO TID [facility] Stop: 11/08/20 13:59 Last Admin: 10/13/20 07:39 Dose: 20 meq Documented by: Ropinirole HCl (Ropinirole Hcl 5 Mg Tablet) 5 mg PO QID [facility] Stop: 11/07/20 08:59 Last Admin: 10/13/20 07:40 Dose: 5 mg Documented by: Rosuvastatin Calcium (Rosuvastatin Calcium 20 Mg Tab) 40 mg PO DAILY [facility] Stop: 11/07/20 08:59 Last Admin: 10/13/20 07:41 Dose: 40 mg Documented by: Senna/Docusate Sodium (Docusate Sodium/Senna 50/8.6mg Tab) 1 tab PO QAM [facility] Stop: 11/12/20 08:59 Last Admin: 10/13/20 07:41 Dose: 1 tab Documented by: Vitamin D (Cholecalciferol 1,000 Units 25 Mcg Tab) 5,000 units PO QAM [facility] Stop: 11/07/20 08:59 Last Admin: 10/13/20 07:41 Dose: 5,000 units Documented by: PG Care Time/CCT Total # of Minutes Spent Total Time Spent with Patient: Total time spent is greater than 50% in coordination of care (as documented) at patient's floor/unit and/or counseling patient: Coding Level of Care Code 96574 Subseq Hosp Care Lvl 3 Diagnoses Acute hypoxemic respiratory failure J96.01 Acute on chronic diastolic (congestive) heart failure I50.33 Complicated UTI (urinary tract infection) N39.0 Chronic right-sided congestive heart failure I50.812 Paraplegia G82.20 Bronchitis J40 Hypertension I10 Hypertension type: unspecified Atrial fibrillation I48.91 Anemia D64.9 Anemia type: unspecified type Type 2 diabetes mellitus with kidney complication, with long-term current use of insulin E11.29; Z79.4 CAD (coronary artery disease) I25.10 Indwelling Soto catheter present Z96.0 Restless leg syndrome G25.81 Chronic kidney disease, stage 3 N18.3 Morbid obesity with BMI of 45.0-49.9, adult E66.01; Z68.42 DVT prophylaxis Z29.9 (1) Anemia Anemia type: unspecified type Qualified Code(s): D64.9 - Anemia, unspecified (2) Hypertension Hypertension type: unspecified Qualified Code(s): I10 - Essential (primary) hypertension
[2020-10-13] MEDS: ACETAMINOPHEN 325 MG TAB PO PRN (09:25)
[2020-10-13] MEDS: ceFAZolin 1000MG 1,000 MG/7.5 ML SYR IV SCH ×2 (11:38→22:29)
--- NOTE | 2020-10-13 15:37 | Gastrointestinal Consultation ---
Date of Consultation October 13, 2020 Assessment & Plan (1) Dysphagia: Patient has had long history of issues with dysphagia. Previous video swallow demonstrated penetration without evidence of aspiration. Esophageal dysmotility. Patient reports difficulty swallowing meats and dry foods. She is a poor candidate for endoscopy. Consider video swallow. Please refer to supervising physician addendum for further recommendations. Supervising Physician Co-Signing Physician Notes I have seen and examined the patient. I agree with note above by SHANIQUA Bourgeois except as noted below. HPI Pt with longstanding dysphagia admitted for CHF and pneumonia PE Abdomen pos bs, soft, no guarding nor rebound A/P Dysphagia--sound like a combination of orpharyngeal dysphagia and esophageal dysphagia. Pt is able to manage eating at present. I fell like risk of endoscopy outweighs benefits. Would conside video flouro swallow if speech path thinks would be helpful. Do not feel need for esophagram because endoscopy high risk. Will sign off. History of Present Illness Attending Physician: Rachel Rizvi MD History of Present Illness The patient is a pleasant 75-year-old female with past medical history to include pulmonary hypertension, tricuspid regurgitation, acute on chronic diast olic heart failure, neuroendocrine tumor, iron deficiency anemia, type 2 diabetes mellitus with kidney complication, coronary artery disease, sleep apnea, history of lung cancer, hyperlipidemia, obesity who presented to the emergency department 10/07/2020 due to complaints of shortness of breath, increased BLE edema, and cough. She was subsequently admitted due to acute hypoxic respiratory failure/pneumonia/CHF exacerbation. GI consult was placed due to dysphagia with solid foods. On exam/interview today, the patient reports she has been having difficulties with swallowing foods such as meats and breads. States she is unable to swallow meats even with repeated chewing. States dry foods such as breads are difficult to swallow. She denies difficulties swallowing liquids. Current diet is heart healthy diabetic diet. Denies cough when swallowing liquids. Reports cough increases when lying flat or with increased activity. Reports right flank/RUQ pain with prolonged coughing. Denies nausea or vomiting. Reports last bowel movement this morning. Unsure if any blood in stool. She states that she does have black stools that she takes an iron supplement daily. Her last colonoscopy was performed 11/14/[address] Goodman due to heme positive stools. Denies hematemesis. Prior surgical history is include cholecystectomy and hysterectomy. 10/11/2020: Patient was evaluated by speech therapy due to stroke-like symptoms who recommended 1. Regular diet with thin liquids 2. Aspiration precautions 04/04/2020: Video swallow obtained due to history of dysphagia that demonstrated 1. Penetration but no evidence of aspiration. Esophageal dysmotility. Patient is a former smoker. She reports she quit smoking approximately 10 to 12 years ago. She denies any use of alcohol. Denies use of recreational drugs including marijuana. Reports that she retired from [employer]. She is and lives with her who serves as her primary caregiver. She does have help in the morning that comes in 5 days a week to help with ADLs Allergies Allergy/AdvReac Type Severity Reaction Status Date / Time metoclopramide [From Reglan] Allergy Mild "went Verified 10/07/20 11:27 crazy" NSAIDS (Non-Steroidal Allergy Unknown UNK? Verified 10/07/20 11:27 Anti-Inflamma DENIES SOB. capsaicin AdvReac Severe SHORTNESS Verified 10/07/20 11:27 OF BREATH diclofenac AdvReac Severe SHORTNESS Verified 10/07/20 11:27 OF BREATH Diclopak AdvReac Severe SHORTNESS Verified 07/24/18 10:57 OF BREATH Home Medications Home Medications Medication Instructions Recorded Confirmed Type magnesium chloride 64 mg 64 mg PO TID tab 06/02/19 10/07/20 History (magnesium chloride) tablet,delayed release insulin syringe-needle U-100 1 mL #300 ea 07/15/19 10/07/20 Rx 30 gauge x /16" amitriptyline 50 mg tablet 50 mg PO HS #90 tab 10/16/19 10/07/20 Rx cholecalciferol (vitamin D3) 125 mcg PO QAM 04/16/20 10/07/20 History acetaminophen 325 mg capsule 650 mg PO BID PRN cap MDD 10 tabs 04/22/20 10/07/20 History metoprolol succinate 25 mg 25 mg PO DAILY #90 tab 05/19/20 10/07/20 Rx tablet,extended release 24 hr allopurinol 100 mg tablet 100 mg PO QAM #90 tab 06/13/20 10/07/20 Rx ferrous sulfate 325 mg (65 mg 325 mg PO BID #180 tab 07/13/20 10/07/20 Rx iron) tablet ropinirole 5 mg tablet 5 mg PO QID #270 tab 07/20/20 10/07/20 Rx rosuvastatin 40 mg tablet 40 mg PO DAILY #90 tab 07/20/20 10/07/20 Rx insulin detemir U-100 100 unit/mL 22 unit SUBCUT BID ml 08/05/20 10/07/20 History (3 mL) subcutaneous pen insulin aspart U-100 100 unit/mL 5 units SQ QID ml 09/02/20 10/07/20 History subcutaneous solution BD Ultra Fine Lancets 33 gauge #200 ea NS 09/20/20 10/07/20 Rx True Metrix Glucose Meter #1 ea NS 09/20/20 10/07/20 Rx True Metrix Glucose Test Strip #200 ea NS 09/20/20 10/07/20 Rx hydralazine 25 mg PO TID #270 tab 10/04/20 10/07/20 Rx pantoprazole 40 mg PO BID #60 tab 10/04/20 10/07/20 Rx apixaban 5 mg tablet 5 mg PO BID 10/05/20 10/07/20 History albuterol sulfate 90 mcg/actuation 1 - 2 inh INHALATION UD PRN g 10/06/20 10/07/20 History aerosol inhaler baclofen 10 mg tablet 5 mg PO HS tab 10/06/20 10/07/20 History lidocaine 4 % topical patch 1 patch TOPICAL DAILY PRN 10/06/20 10/07/20 History furosemide 40 mg tablet 80 mg PO BID #0 tab 10/07/20 10/07/20 Rx nitroglycerin 0.4 mg sublingual 0.4 mg SL UD PRN #25 tab 10/07/20 10/07/20 Rx tablet potassium chloride 20 mEq 20 meq PO BID #60 tab 10/07/20 10/07/20 Rx tablet,extended release Patient History Medical History (Updated 10/13/20 @ 15:42 by SHANIQUA Amaral) Acute dehydration Acute osteomyelitis of toe of left foot Acute UTI (urinary tract infection) Anemia Aortic stenosis MILD-MOD per 08/2019 echo, but NO SIGNIFICANT STENOSIS noted on 10/12/19 echo. Atrial fibrillation On Eliquis CAD (coronary artery disease) s/p CABG x 2 in 2012. CAD has remained quiescent since then. Follows with Dr. Hernandez, who cleared the patient for lumbar surgery 07/2019. CHF (congestive heart failure) Appears euvolemic on exam at [facility] but unable to asses pedal edema due to b/l medical walking shoes for diabetic ulcers. EF 50-55% on most recent echo. Chronic kidney disease, stage 3 Clostridium difficile infection DX [facility] 12/2018 @ [facility]. Stool NEGATIVE 05/25/19. Diabetes mellitus, type 2 IDDM Diabetic foot ulcer associated with type 2 diabetes mellitus Following with wound clinic [facility]. DVT prophylaxis Dysphagia E. coli infect Encounter for immunization Encounter for monitoring diuretic therapy Fatty liver Gout Hypertension Hypoglycemia Indwelling Soto catheter present Lumbar spinal stenosis Severe at L4-5. 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 Lung cancer S/P RM lobectomy 2015, follows with Dr. Perkins. 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 Urinary tract infection Venous stasis ulcer of right lower leg with edema of right lower leg Surgical History Fusion of spine lumbar (07/2019) at [facility] --- uneventful surgery/anesthesia and hospitalization, but patient developed subsequent LE paraplegia. 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 History of appendectomy History of bilateral knee replacement History of bronchoscopy History of cardiac cath 2012 - [facility] - [place] - NO STENTS/ANGIOPLASTY -- > CABG History of cholecystectomy History of colonoscopy 11/2018 [facility] History of esophagogastroduodenoscopy (EGD) 11/2018 [facility] History of hysterectomy with oophorectomy KEARA with BSO History of lobectomy of lung RML History of ovarian cystectomy History of surgery Right VATS PROCEDURE History of tubal ligation Hx of CABG 2012 - - [facility] - 2 VESSELS Family History Daughter Family history of diabetes mellitus Mother Heart disease Hypertension Myocardial infarction Father Hypertension Other Diabetes Denies family history of Ovarian cancer Prostate cancer Crohn's disease Breast cancer Colorectal cancer Ulcerative colitis Social History Smoking Status: Never smoker Tobacco Type: Cigarettes Years Smoked: 20; Cigarettes Per Day: 10; Number of Years Since Quit: 8; Second Hand Exposure: No; Hx Alcohol Use: No Hx Substance Use: No Preferred Language: Nam[place]ian Communication Ability: Effective Visual Impairment: No Limitations Hearing Ability: Normal Materials Analyst Required: No Beliefs That Will Affect Care: None marital status: Current Living Situation: Family Current Living Situation Comment: Live with . current occupational status: retired Feels Safe at Home: Yes Childhood Exposure to Second-Hand Smoke: No Dental Care, Regularly: No Physical Activity Frequency: Does not Exercise Seatbelt Use: always Sunscreen Use: No Assistive Devices: Mechanical Lift Review of Systems Review of Systems: All systems reviewed & are unremarkable except as noted in Subjective Physical Exam Constitutional: WD/WN, vitals as above + morbidly obese Eyes: no eyelid abnormality wears corrective lenses ENMT: Ears: no external ear abnormality Nose: no external nose abnormality Neck: normal visual inspection and trachea midline Respiratory: normal respiratory effort; no respiratory distress and no labored breathing Cardiovascular: Rate/Rhythm: + irregularly irregular Extremities: + edema (+4 BLE pitting) Gastrointestinal (Abdomen): Inspection/Auscultation: abdomen normal to inspection and normal bowel sounds Percussion/Palpation: abdomen soft; abdomen nontender, no guarding and abdomen not rigid Musculoskeletal: Extremities: no cyanosis and no clubbing Skin: + ecchymosis (Anterior right upper arm ) Neurologic: PERRL, EOMI, accommodation nl, no face palsy, no dysarthria Psychiatric: A+Ox3, euthymic affect Results & Data ([facility]) Vital Signs (Past 12 Hours) Vital Signs Temp Pulse Resp BP Pulse Ox 10/13/20 15:24 36.7 C 67 18 122/53 L 95 10/13/20 13:26 80 110/65 10/13/20 11:27 57 L 18 96 10/13/20 11:25 36.6 C 67 18 117/60 94 10/13/20 07:40 94 H 16 92 10/13/20 07:33 36.6 C 74 16 117/74 92 Laboratory Results - last 24 hr 10/12/20 10/12/20 10/13/20 16:15 20:45 05:55 WBC 7.01 RBC 2.89 L Hgb 7.9 L Hct 26.2 L MCV 90.7 MCH 27.3 MCHC 30.2 L RDW Std Deviation 58.1 H RDW Coeff of Lelo 17.4 H Plt Count 244 MPV 8.1 Sodium Potassium Chloride Carbon Dioxide Anion Gap BUN Creatinine Est Cr Clr Drug Dosing Est GFR ( Amer) Est GFR (Non-Af Amer) BUN/Creatinine Ratio Glucose POC Glucose 127 H 145 H Calcium 10/13/20 10/13/20 10/13/20 05:55 07:47 11:57 WBC RBC Hgb Hct MCV MCH MCHC RDW Std Deviation RDW Coeff of Lelo Plt Count MPV Sodium 139 Potassium 3.6 Chloride 105 Carbon Dioxide 29 Anion Gap 5.0 BUN 52 H Creatinine 1.49 H Est Cr Clr Drug Dosing 40.4 Est GFR ( Amer) 39.1 Est GFR (Non-Af Amer) 33.8 BUN/Creatinine Ratio 35.1 H Glucose 66 L POC Glucose 77 126 H Calcium 8.7
[2020-10-13] MEDS: BACLOFEN 10 MG TAB PO SCH (20:27)
[2020-10-13] MEDS: AMITRIPTYLINE HCL 50 MG TAB PO SCH (20:29)
[2020-10-13] MEDS: rOPINIRole HCL 1 MG TABLET PO SCH (20:30)
[2020-10-14 06:29] LABS: Basophils # (auto) 0.03 K/uL (0-0.2); Basophils % (auto) 0.5 %; Eosinophils # (auto) 0.26 K/uL (0-0.5); Eosinophils % (auto) 4.2 %; Hemoglobin 7.9 g/dL (12.0-16.0); Immature Granulocytes # (auto) 0.01 K/uL (0.00-0.02); Immature Granulocytes % (auto) 0.2 %; Lymphocytes # (auto) 0.59 K/uL (1.2-3.4); Lymphocytes % (auto) 9.5 %; Mean Corpuscular Hemoglobin 27.1 pg (25-34); Mean Corpuscular Hgb Conc 29.3 g/dL (32-36); Mean Corpuscular Volume 92.5 fL (80-100); Mean Platelet Volume 8.7 fL (7.4-10.4); Monocytes # (auto) 0.53 K/uL (0.11-0.59); Monocytes % (auto) 8.5 %; Neutrophils # (auto) 4.79 K/uL (1.4-6.5); Neutrophils % (auto) 77.1 %; Platelet Count 246 K/uL (130-400); RDW Coefficient of Variation 17.5 % (11.5-14.5); RDW Standard Deviation 59.5 fL (36.4-46.3); Red Blood Count 2.92 M/uL (4.2-5.4); White Blood Count 6.21 K/uL (4.8-10.8)
[2020-10-14 07:05] LABS: RBC Morphology Unremarkable
[2020-10-14 07:08] LABS: BUN Creatinine Ratio 37.5 (10-20); Calcium 8.5 mg/dl (8.5-10.1); Creatinine Clr Calc Pharmacy 45.6 ml/min; Est GFR (African American) 45.7; Est GFR (Non-African American) 39.5; Magnesium 2.4 mg/dl (1.8-2.4); Phosphorus 2.9 mg/dl (2.5-4.9); Potassium 3.6 mmol/L (3.5-5.1)
[2020-10-14] MEDS: ALBUT/IPRATROP 3MG/0.5MG NEB 3 ML VIAL NEB SCH (07:09)
[2020-10-14] MEDS: INSULIN ASPART 100 UNITS/ML 3 ML PEN SC SCH ×4 (08:32→21:31)
[2020-10-14] MEDS: allopurinoL 100 MG TAB PO SCH (08:33)
[2020-10-14] MEDS: FUROSEMIDE 80 MG in SYRINGE 0 ML IV SCH ×2 (08:33→21:31)
[2020-10-14] MEDS: rOPINIRole HCL 1 MG TABLET PO SCH ×2 (08:33→12:46)
[2020-10-14] MEDS: hydrALAZINE HCL 25 MG TAB PO SCH ×3 (08:34→20:24)
[2020-10-14] MEDS: APIXABAN 5 MG TABLET PO SCH ×2 (08:34→20:24)
[2020-10-14] MEDS: FERROUS SULFATE 325 MG TAB PO SCH ×2 (08:34→20:24)
[2020-10-14] MEDS: POTASSIUM CHLORIDE CRTAB 20 MEQ TABCR PO SCH ×3 (08:34→20:24)
[2020-10-14] MEDS: DOCUSATE SODIUM/SENNA 50/8.6MG TAB PO SCH (08:35)
[2020-10-14] MEDS: MAGNESIUM CHLORIDE 64MG DELAYED REL TAB PO SCH ×3 (08:35→20:24)
[2020-10-14] MEDS: PANTOprazole 40 MG TAB PO SCH ×2 (08:35→20:24)
[2020-10-14] MEDS: CHOLECALCIFEROL 1,000 UNITS 25 MCG TAB PO SCH (08:35)
[2020-10-14] MEDS: ROSUVASTATIN CALCIUM 20 MG TAB PO SCH (08:35)
[2020-10-14] MEDS: METOPROLOL SUCC 25MG EXT REL TAB PO SCH (08:35)
[2020-10-14] MEDS: POLYETHYLENE (MIRALAX) 17 GM PACK PO SCH (08:36)
[2020-10-14] MEDS ORDERED: ALBUT/IPRATROP 3MG/0.5MG NEB 3 ML VIAL NEB PRN (09:12)
--- NOTE | 2020-10-14 09:20 | Hospitalist Progress Note ---
Date of Service October 14, 2020 Assessment & Plan (1) Acute on chronic diastolic (congestive) heart failure: Will treat diastolic CHF and also right heart failure with IV diuretics. She stated that she takes lasix 60mg BID at home -- receiving lasix 80mg IV BID here Monitor intake and output, daily weights 10-07 121.6kg 10-13 113.5kg 10-14 112kg, CXR with improving bilateral airspace opacities and small right effusion (2) Complicated UTI (urinary tract infection): Related to chronic indwelling suprapubic catheter 10-07 urine Cx with > 100,000 CFU pansensitive e.coli. 10-07 evening to 10-10 zosyn 10-10 transitioned to intravenous cefazolin, to be completed 10-15 morning 10-[address] 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 Continue supportive care suprapubic catheter for neurogenic bladder (5) Bronchitis: severe wheezing resolved. Parenteral steroids discontinued. cont bronchodilators. cont flutter valve (6) Chronic right-sided congestive heart failure: acute/chronic. see above in resp failure. cont beta jody & IV diuretics. (7) Hypertension: cont home meds (8) Atrial fibrillation: controlled 10-12 restarted eliquis (9) Anemia: Hb now stable. monitor CBC daily (10) Type 2 diabetes mellitus with kidney complication, with long-term current use of insulin: Basal insulin uptitrated today, October 11. Discontinuing parenteral steroids will lower the glucose level. ADA diet. Sliding scale coverage (11) CAD (coronary artery disease): no ischemic sx's at this time cont BB cont statin (12) Indwelling Soto catheter present: suprapubic catheter due to chronic neurogenic bladder (13) Acute hypoxemic respiratory failure: resolved, off oxygen CXR shows pulmonary edema. AHRF likely 2' to CHF exacerbation COVID-19 PCR negative at admission, [employer] panel which includes COVID-19 was also negative. MRSA swab negative (14) Restless leg syndrome: cont ropinirole (15) Chronic kidney disease, stage 3: baseline Cr about 1.4 creatinine very near baseline. Will follow. BMP am (16) Morbid obesity with BMI of 45.0-49.9, adult: BMI 45 (17) DVT prophylaxis: started eliquis and samantha hose home once medically stable, home is handicap accessible and daily caregivers are present Admission and Anticipated Discharge Date Admission Date: October 07, 2020 Subjective Patient swallowing more easily with cut up pieces of meat. Endorses cough that is productive of mucous, but she can not get it up. Feels less SOB. Her edema continues to improve. Denies n/v/d. No chest pain. No abd pain. No headache. Review of Systems Constitutional: no fever, no chills, no fatigue, no weakness, no anorexia, no weight loss and no weight gain Ear, Nose, Mouth, Throat: no nasal congestion, no sore throat and no dysphagia Respiratory: + cough; no dyspnea Cardiovascular: + edema; no chest pain, no dyspnea on exertion, no orthopnea and no palpitations Gastrointestinal: + dysphagia; no abdominal pain, no nausea, no vomiting, no hematemesis, no constipation, no diarrhea/loose stools, no blood in stools and no melena Genitourinary: no dysuria, no urinary frequency, no hematuria and no flank pain Musculoskeletal: no back pain, no joint pain, no myalgia and no muscle weakness Integumentary: no rash, no lesions, no skin ulcer, no erythema, no dry skin and no pruritus Neurologic: no falls, no localized weakness, no generalized weakness, no numbness, no paresthesia, no tremor(s) and no headache(s) Psychiatric: no depression, no suicidal ideation, no homicidal ideation and no anxiety Endocrine: no cold intolerance and no heat intolerance Hematologic / Lymphatic: no easy bleeding and no easy bruising Physical Exam Constitutional: well developed, well nourished and + morbidly obese; no acute distress Eyes: PERRL, conjunctivae normal, anicteric sclerae ENMT: Mouth: oral mucous membranes not dry Respiratory: normal respiratory effort; no respiratory distress and no labored breathing Auscultation: + rales and + wheezes; + lungs not clear to auscultation, no crackles and no rhonchi Cardiovascular: Rate/Rhythm: regular rate and regular rhythm Heart Sounds: no murmur and no cardiac rub Vessels: normal peripheral pulses and radial pul ses present; no JVD Extremities: + edema (3+ bilateral LE pitting edema) Gastrointestinal (Abdomen): Inspection/Auscultation: abdomen normal to inspection and normal bowel sounds; abdomen not distended Percussion/Palpation: abdomen soft; abdomen nontender, no guarding, abdomen not rigid and no hepatosplenomegaly Musculoskeletal: Head/Neck/Chest: normocephalic and head atraumatic Spine: no cervical spinal tenderness, no cervical muscular tenderness, no thoracic spinal tenderness and no lumbar spinal tenderness Skin: no rashes, warm and dry ecchymosis where the SAMANTHA hose were too tight on her legs Neurologic: CN's II-XI intact bilaterally and moves all extremities Motor/Sensory: no tremor and no sensory deficit Psychiatric: Orientation: alert, oriented to person, oriented to place and oriented to time Apperance: appropriately groomed; not disheveled Affect: euthymic affect; no anxious affect and no tearful affect Genitourinary: no CVA tenderness Results & Data Results & Data ([facility]) Vital Signs (Past 12 Hours) Vital Signs Temp Pulse Pulse Resp BP BP Pulse Ox 10/14/20 07:57 36.9 C 63 18 125/72 93 10/14/20 07:49 58 L 10/14/20 07:09 61 17 94 10/14/20 05:09 36.8 C 59 L 18 148/67 H 90 10/14/20 00:00 37 C 61 20 121/56 L 92 Laboratory Results Abnormal lab results 10/13/20 10/13/20 10/13/20 Range/Units 11:57 16:20 20:24 RBC (4.2-5.4) M/uL Hgb (12.0-16.0) g/dL Hct (37-47) % MCHC (32-36) g/dL RDW Std Deviation (36.4-46.3) fL RDW Coeff of Lelo (11.5-14.5) % Lymph # (Auto) (1.2-3.4) K/uL BUN (7-18) mg/dl Creatinine (0.6-1.2) mg/dl BUN/Creatinine Ratio (10-20) Glucose (70-99) mg/dl POC Glucose 126 H 100 H 191 H (70-99) mg/dl 10/14/20 10/14/20 Range/Units 06:04 06:04 RBC 2.92 L (4.2-5.4) M/uL Hgb 7.9 L (12.0-16.0) g/dL Hct 27.0 L (37-47) % MCHC 29.3 L (32-36) g/dL RDW Std Deviation 59.5 H (36.4-46.3) fL RDW Coeff of Lelo 17.5 H (11.5-14.5) % Lymph # (Auto) 0.59 L (1.2-3.4) K/uL BUN 49 H (7-18) mg/dl Creatinine 1.31 H (0.6-1.2) mg/dl BUN/Creatinine Ratio 37.5 H (10-20) Glucose 67 L (70-99) mg/dl POC Glucose (70-99) mg/dl Medications Administered Current Inpatient Medications Acetaminophen (Acetaminophen 325 Mg Tab) 650 mg PO Q4H PRN PRN Reason: Pain or Fever Stop: 11/07/20 00:45 Last Admin: 10/13/20 09:25 Dose: 650 mg Documented by: Albuterol (Albut/Ipratrop 3mg/0.5mg Neb 3 Ml Vial) 3 ml NEB QIDR PRN PRN Reason: Shortness Of Breath Or Wheezing Stop: 11/07/20 06:59 Allopurinol ([facility]opurinol 100 Mg Tab) [facility] [place] Stop: 11/07/20 08:59 Last Admin: 10/14/20 08:33 Dose: 100 mg Documented by: Amitriptyline HCl (Amitriptyline Hcl 50 Mg Tab) 50 mg PO [facility] Stop: 11/07/20 20:59 Last Admin: 10/13/20 20:29 Dose: 50 mg Documented by: Apixaban (Apixaban 5 Mg Tablet) 5 mg PO BID [facility] Stop: 11/11/20 20:59 Last Admin: 10/14/20 08:34 Dose: 5 mg Documented by: Baclofen (Baclofen 10 Mg Tab) 5 mg PO [facility] Stop: 11/07/20 20:59 Last Admin: 10/13/20 20:27 Dose: 5 mg Documented by: Dextrose (Dextrose 50% 50 Ml Syringe) 25 - 50 ml IV UD PRN; Protocol PRN Reason: Hypoglycemia Protocol Stop: 11/07/20 00:45 Ferrous Sulfate (Ferrous Sulfate 325 Mg Tab) 325 mg PO BID [facility] Stop: 11/07/20 01:44 Last Admin: 10/14/20 08:34 Dose: 325 mg Documented by: Furosemide (Furosemide 80 Mg Tab) 80 mg PO BID17 [facility] Stop: 11/07/20 08:59 Last Admin: 10/08/20 08:04 Dose: 80 mg Documented by: Glucagon (Glucagon For Inj 1 Mg Vial) 1 mg SQ UD PRN; Protocol PRN Reason: Hypoglycemia Protocol Stop: 11/07/20 00:45 Glucose (Glucose 10 Tabs/Tube) 4 - 8 tabs PO UD PRN; Protocol PRN Reason: Hypoglycemia Protocol Stop: 11/07/20 00:45 Glucose (Glucose 40% Gel 15 Gm Tube) 15 - 30 gm PO UD PRN; Protocol PRN Reason: Hypoglycemia Protocol Stop: 11/07/20 00:45 Hydralazine HCl (Hydralazine Hcl 25 Mg Tab) 25 mg PO TID [facility] Stop: 11/07/20 08:59 Last Admin: 10/14/20 08:34 Dose: 25 mg Documented by: Cefazolin Sodium (Ancef 1000mg) 1,000 mg in 7.5 mls @ 2.5 mls/min IV Q12H [facility]; Protocol Stop: 10/20/20 10:59 Last Admin: 10/13/20 22:29 Dose: 2.5 mls/min Documented by: Furosemide 80 mg/ Syringe 8 mls @ 4 mls/min IV Q12 [facility] Stop: 11/10/20 20:59 Last Admin: 10/14/20 08:33 Dose: 4 mls/min Documented by: Insulin Aspart (Insulin Aspart 100 Units/Ml 3 Ml Pen) 0 units SC ACHS CEM Stop: 11/07/20 07:29 Last Admin: 10/14/20 08:32 Dose: Not Given Documented by: Insulin Detemir (Insulin Detemir Flexpen/Flex Touch 100 Units/Ml 3ml) 25 units SQ BID [facility] Stop: 11/10/20 08:59 Last Admin: 10/13/20 20:41 Dose: 25 units Documented by: Magnesium Chloride (Magnesium Chloride 64mg Delayed Rel Tab) 64 mg PO TID [facility] Stop: 11/07/20 08:59 Last Admin: 10/14/20 08:35 Dose: 64 mg Documented by: Metoprolol Succinate (Metoprolol Succ 25mg Ext Rel Tab) 25 mg PO DAILY [facility] Stop: 11/07/20 08:59 Last Admin: 10/14/20 08:35 Dose: 25 mg Documented by: Miscellaneous (Carbohydrates For Hypoglycemia ) 15 - 30 gm PO UD PRN PRN Reason: Hypoglycemia Protocol Stop: 11/07/20 00:45 Nitroglycerin (Nitroglycerin Sl 0.4 Mg/Tab Tab) 0.4 mg SL UD PRN PRN Reason: Chest Pain Stop: 11/07/20 00:45 Ondansetron HCl (Ondansetron Inj 2 Mg/Ml 2 Ml Vial) 4 mg IV Q6H PRN PRN Reason: Nausea Stop: 11/07/20 00:45 Pantoprazole Sodium (Pantoprazole 40 Mg Tab) 40 mg PO BID [facility] Stop: 11/07/20 01:44 Last Admin: 10/14/20 08:35 Dose: 40 mg Documented by: Polyethylene Glycol (Polyethylene (Miralax) 17 Gm Pack) 17 gm PO DAILY [facility] Stop: 11/12/20 08:59 Last Admin: 10/14/20 08:36 Dose: 17 gm Documented by: Potassium Chloride (Potassium Chloride 20 Meq Tabcr) 20 meq PO TID [facility] Stop: 11/08/20 13:59 Last Admin: 10/14/20 08:34 Dose: 20 meq Documented by: Ropinirole HCl (Ropinirole Hcl 5 Mg Tablet) 5 mg PO QID [facility] Stop: 11/07/20 08:59 Last Admin: 10/13/20 17:00 Dose: 5 mg Documented by: Ropinirole HCl (Ropinirole Hcl 1 Mg Tablet) 5 mg PO QID [facility] Stop: 11/12/20 20:59 Last Admin: 10/14/20 08:33 Dose: 5 mg Documented by: Rosuvastatin Calcium (Rosuvastatin Calcium 20 Mg Tab) 40 mg PO DAILY [facility] Stop: 11/07/20 08:59 Last Admin: 10/14/20 08:35 Dose: 40 mg Documented by: Senna/Docusate Sodium (Docusate Sodium/Senna 50/8.6mg Tab) 1 tab PO QAM [facility] Stop: 11/12/20 08:59 Last Admin: 10/14/20 08:35 Dose: 1 tab Documented by: Vitamin D (Cholecalciferol 1,000 Units 25 Mcg Tab) 5,000 units PO QAM CEM Stop: 11/07/20 08:59 Last Admin: 10/14/20 08:35 Dose: 5,000 units Documented by: PG Care Time/CCT Total # of Minutes Spent Total Time Spent with Patient: Total time spent is greater than 50% in coordination of care (as documented) at patient's floor/unit and/or counseling patient: Coding Level of Care Code 27727 Subseq Hosp Care Lvl 3 Diagnoses Acute on chronic diastolic (congestive) heart failure I50.33 Complicated UTI (urinary tract infection) N39.0 Dysphagia R13.14 Dysphagia type: pharyngoesophageal phase Paraplegia G82.20 Bronchitis J40 Chronic right-sided congestive heart failure I50.812 Hypertension I10 Hypertension type: unspecified Atrial fibrillation I48.20 Atrial fibrillation type: unspecified chronic Anemia D64.9 Anemia type: unspecified type Type 2 diabetes mellitus with kidney complication, with long-term current use of insulin E11.29; Z79.4 CAD (coronary artery disease) I25.10 Indwelling Soto catheter present Z96.0 Acute hypoxemic respiratory failure J96.01 Restless leg syndrome G25.81 Chronic kidney disease, stage 3 N18.3 Morbid obesity with BMI of 45.0-49.9, adult E66.01; Z68.42 DVT prophylaxis Z29.9 (1) Anemia Anemia type: unspecified type Qualified Code(s): D64.9 - Anemia, unspecified (2) Atrial fibrillation Atrial fibrillation type: unspecified chronic Qualified Code(s): I48.20 - Chronic atrial fibrillation, unspecified (3) Dysphagia Dysphagia type: pharyngoesophageal phase Qualified Code(s): R13.14 - Dysphagia, pharyngoesophageal phase (4) Hypertension Hypertension type: unspecified Qualified Code(s): I10 - Essential (primary) hypertension
[2020-10-14] MEDS: INSULIN DETEMIR FLEXPEN/FLEX TOUCH 100 UNITS/ML 3ML SQ SCH ×2 (10:06→21:30)
[2020-10-14] MEDS: ceFAZolin 1000MG 1,000 MG/7.5 ML SYR IV SCH ×2 (12:45→22:18)
--- NOTE | 2020-10-14 14:38 | XRay Report ---
XR chest 1V portable CLINICAL HISTORY: cough COMPARISON STUDY: 12/21/2019 FINDINGS: The heart is enlarged. There are postsurgical changes of midline sternotomy. There is centr al pulmonary artery enlargement suggesting pulmonary nodule hypertension. There is a small right pleu ral effusion. There are improving bilateral airspace opacities, likely representing resolving improvi ng pulmonary edema. Improving bilateral infectious/inflammatory processes could appear similar. IMPRESSION: 1. Cardiomegaly and improving bilateral pulmonary airspace opacities 2. Small right pleural effusion ACT 112: Negative or not required by law. Electronically signed by: Franco Lopez M.D. 10/14/2020 2:36 PM
[2020-10-14] MEDS: guaiFENesin 600 MG TABCR PO SCH (20:24)
[2020-10-14] MEDS: BACLOFEN 10 MG TAB PO SCH (20:24)
[2020-10-14] MEDS: AMITRIPTYLINE HCL 50 MG TAB PO SCH (20:24)
[2020-10-14] MEDS: ACETAMINOPHEN 325 MG TAB PO PRN (22:17)
[2020-10-15 06:17] LABS: Basophils # (auto) 0.02 K/uL (0-0.2); Basophils % (auto) 0.3 %; Eosinophils # (auto) 0.21 K/uL (0-0.5); Eosinophils % (auto) 2.7 %; Hematocrit (blood only) 29.2 % (37-47); Hemoglobin 8.7 g/dL (12.0-16.0); Immature Granulocytes # (auto) 0.05 K/uL (0.00-0.02); Immature Granulocytes % (auto) 0.6 %; Lymphocytes # (auto) 0.71 K/uL (1.2-3.4); Lymphocytes % (auto) 9.2 %; Mean Corpuscular Hemoglobin 27.1 pg (25-34); Mean Corpuscular Hgb Conc 29.8 g/dL (32-36); Mean Platelet Volume 8.8 fL (7.4-10.4); Monocytes # (auto) 0.66 K/uL (0.11-0.59); Monocytes % (auto) 8.5 %; Neutrophils % (auto) 78.7 %; Platelet Count 263 K/uL (130-400); RDW Coefficient of Variation 17.7 % (11.5-14.5); RDW Standard Deviation 59.7 fL (36.4-46.3); Red Blood Count 3.21 M/uL (4.2-5.4); White Blood Count 7.75 K/uL (4.8-10.8)
[2020-10-15 07:08] LABS: BUN Creatinine Ratio 34.1 (10-20); Calcium 8.7 mg/dl (8.5-10.1); Creatinine Clr Calc Pharmacy 44.2 ml/min; Est GFR (African American) 44.5; Est GFR (Non-African American) 38.4; Potassium 3.6 mmol/L (3.5-5.1)
[2020-10-15] MEDS: INSULIN ASPART 100 UNITS/ML 3 ML PEN SC SCH ×4 (08:02→22:04)
[2020-10-15] MEDS: FUROSEMIDE 80 MG in SYRINGE 0 ML IV SCH ×2 (08:10→21:56)
[2020-10-15] MEDS: FERROUS SULFATE 325 MG TAB PO SCH ×2 (08:10→21:59)
[2020-10-15] MEDS: hydrALAZINE HCL 25 MG TAB PO SCH ×3 (08:10→21:59)
[2020-10-15] MEDS: INSULIN DETEMIR FLEXPEN/FLEX TOUCH 100 UNITS/ML 3ML SQ SCH ×2 (08:10→22:03)
[2020-10-15] MEDS: APIXABAN 5 MG TABLET PO SCH ×2 (08:11→21:59)
[2020-10-15] MEDS: ROSUVASTATIN CALCIUM 20 MG TAB PO SCH (08:11)
[2020-10-15] MEDS: allopurinoL 100 MG TAB PO SCH (08:11)
[2020-10-15] MEDS: DOCUSATE SODIUM/SENNA 50/8.6MG TAB PO SCH (08:11)
[2020-10-15] MEDS: PANTOprazole 40 MG TAB PO SCH ×2 (08:11→21:59)
[2020-10-15] MEDS: MAGNESIUM CHLORIDE 64MG DELAYED REL TAB PO SCH ×3 (08:11→21:59)
[2020-10-15] MEDS: guaiFENesin 600 MG TABCR PO SCH ×2 (08:11→21:59)
[2020-10-15] MEDS: METOPROLOL SUCC 25MG EXT REL TAB PO SCH (08:12)
[2020-10-15] MEDS: POLYETHYLENE (MIRALAX) 17 GM PACK PO SCH (08:13)
[2020-10-15] MEDS: CHOLECALCIFEROL 1,000 UNITS 25 MCG TAB PO SCH (08:13)
[2020-10-15] MEDS: POTASSIUM CHLORIDE CRTAB 20 MEQ TABCR PO SCH ×3 (08:13→21:59)
--- NOTE | 2020-10-15 08:20 | Hospitalist Progress Note ---
Date of Service October 15, 2020 Assessment & Plan (1) Acute on chronic diastolic (congestive) heart failure: Patient believes her dry weight is 90-100kg Will treat diastolic CHF and also right heart failure with IV diuretics. She stated that she takes lasix 60mg BID at home -- receiving lasix 80mg IV BID Monitor intake and output, daily weights 10-07 121.6kg 10-13 113.5kg 10-14 112kg, CXR with improving bilateral airspace opacities and small right effusion 10-15 110.6kg, down 24 pounds, legs still 3+ bilateral pitting edema. continue diuresis (2) Complicated UTI (urinary tract infection): Related to chronic indwelling suprapubic catheter 10-07 urine Cx with > 100,000 CFU pansensitive e.coli. 10-07 evening to 10-10 zosyn 10-10 transitioned to intravenous cefazolin, to be completed 10-15 morning 10-[address] 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 Continue supportive care suprapubic catheter for neurogenic bladder (5) Bronchitis: severe wheezing resolved. Parenteral steroids discontinued. cont bronchodilators. cont flutter valve 10-14 started mucinex (6) Type 2 diabetes mellitus with kidney complication, with long-term current use of insulin: She uses levemir 22units twice daily at home ADA diet. Sliding scale coverage 10-11 Basal insulin uptitrated 25units BID in setting of steroids 10-15 hypoglycemic but asymptomatic, decreased levemir to 15 units BID (7) Chronic right-sided congestive heart failure: acute/chronic. see above in resp failure. cont beta jody & IV diuretics. (8) Hypertension: cont home meds (9) Atrial fibrillation: controlled 10-12 restarted eliquis (10) Anemia: Hb now stable. monitor CBC daily (11) CAD (coronary artery disease): no ischemic sx's at this time cont BB cont statin (12) Indwelling Soto catheter present: suprapubic catheter due to chronic neurogenic bladder (13) Acute hypoxemic respiratory failure: resolved, off oxygen CXR shows pulmonary edema. AHRF likely 2' to CHF exacerbation COVID-19 PCR negative at admission, [employer] panel which includes COVID-19 was also negative. MRSA swab negative (14) Restless leg syndrome: cont ropinirole (15) Chronic kidney disease, stage 3: baseline Cr about 1.4 creatinine very near baseline. Will follow. BMP am (16) Morbid obesity with BMI of 45.0-49.9, adult: BMI 45 (17) DVT prophylaxis: started eliquis and luis hose home once medically stable, home is handicap accessible and daily caregivers are present Admission and Anticipated Discharge Date Admission Date: October 07, 2020 Subjective Hypoglycemia this morning again. She is asymptomatic from it -- no sweating, not anxious. She uses levemir 22units twice daily at home -- we had increased to 25units BID in setting of steroids, which are now discontinued. Edema is still present in her legs -- improved from prior, but still worse than her baseline. Patient is down 24 pounds from admission. Cough is still present. Feels mucinex has helped thin the secretions so she may be able to cough up phlegm. Review of Systems Constitutional: no fever, no chills, no fatigue, no weakness, no anorexia, no weight loss and no weight gain Ear, Nose, Mouth, Throat: no nasal congestion, no sore throat and no dysphagia Respiratory: + cough; no dyspnea Cardiovascular: + edema; no chest pain, no dyspnea on exertion, no orthopnea and no palpitations Gastrointestinal: + dysphagia; no abdominal pain, no nausea, no vomiting, no hematemesis, no constipation, no diarrhea/loose stools, no blood in stools and no melena Genitourinary: no dysuria, no urinary frequency, no hematuria and no flank pain Musculoskeletal: no back pain, no joint pain, no myalgia and no muscle weakness Integumentary: no rash, no lesions, no skin ulcer, no erythema, no dry skin and no pruritus Neurologic: no falls, no localized weakness, no generalized weakness, no numbness, no paresthesia, no tremor(s) and no headache(s) Psychiatric: no depression, no suicidal ideation, no homicidal ideation and no anxiety Endocrine: no cold intolerance and no heat intolerance Hematologic / Lymphatic: no easy bleeding and no easy bruising Physical Exam Constitutional: well developed, well nourished and + morbidly obese; no acute distress Eyes: PERRL, conjunctivae normal, anicteric sclerae ENMT: Mouth: oral mucous membranes not dry Respiratory: normal respiratory effort; no respiratory distress and no labored breathing Auscultation: + rales and + wheezes; + lungs not clear to auscultation, no crackles and no rhonchi Cardiovascular: Rate/Rhythm: regular rate and regular rhythm Heart Sounds: no murmur and no cardiac rub Vessels: normal peripheral pulses and radial pulses present; no JVD Extremities: + edema (3+ bilateral LE pitting edema) Gastrointestinal (Abdomen): Inspection/Auscultation: abdomen normal to inspection and normal bowel sounds; abdomen not distended P ercussion/Palpation: abdomen soft; abdomen nontender, no guarding, abdomen not rigid and no hepatosplenomegaly Musculoskeletal: Head/Neck/Chest: normocephalic and head atraumatic Spine: no cervical spinal tenderness, no cervical muscular tenderness, no thoracic spinal tenderness and no lumbar spinal tenderness Skin: no rashes, warm and dry Neurologic: CN's II-XI intact bilaterally and moves all extremities Motor/Sensory: no tremor and no sensory deficit Psychiatric: Orientation: alert, oriented to person, oriented to place and oriented to time Apperance: appropriately groomed; not disheveled Affect: euthymic affect; no anxious affect and no tearful affect Genitourinary: no CVA tenderness Results & Data Results & Data ([facility]) Vital Signs (Past 12 Hours) Vital Signs Temp Pulse Pulse Resp BP Pulse Ox 10/15/20 07:32 57 L 10/15/20 07:15 36.8 C 58 L 18 118/51 L 93 10/15/20 04:30 36.5 C 62 22 131/70 91 10/14/20 23:22 36.6 C 67 18 130/68 94 Laboratory Results Abnormal lab results 10/14/20 10/14/20 10/14/20 Range/Units 11:26 16:39 20:48 RBC (4.2-5.4) M/uL Hgb (12.0-16.0) g/dL Hct (37-47) % MCHC (32-36) g/dL RDW Std Deviation (36.4-46.3) fL RDW Coeff of Lelo (11.5-14.5) % Lymph # (Auto) (1.2-3.4) K/uL [place] # (Auto) (0.11-0.59) K/uL Immature Gran # (Auto) (0.00-0.02) K/uL BUN (7-18) mg/dl Creatinine (0.6-1.2) mg/dl BUN/Creatinine Ratio (10-20) Glucose (70-99) mg/dl POC Glucose 137 H 105 H 114 H (70-99) mg/dl 10/15/20 10/15/20 10/15/20 Range/Units 05:46 05:46 07:42 RBC 3.21 L (4.2-5.4) M/uL Hgb 8.7 L (12.0-16.0) g/dL Hct 29.2 L (37-47) % MCHC 29.8 L (32-36) g/dL RDW Std Deviation 59.7 H (36.4-46.3) fL RDW Coeff of Lelo 17.7 H (11.5-14.5) % Lymph # (Auto) 0.71 L (1.2-3.4) K/uL [place] # (Auto) 0.66 H (0.11-0.59) K/uL Immature Gran # (Auto) 0.05 H (0.00-0.02) K/uL BUN 46 H (7-18) mg/dl Creatinine 1.34 H (0.6-1.2) mg/dl BUN/Creatinine Ratio 34.1 H (10-20) Glucose 56 L (70-99) mg/dl POC Glucose 69 L* (70-99) mg/dl Medications Administered Current Inpatient Medications Acetaminophen (Acetaminophen 325 Mg Tab) 650 mg PO Q4H PRN PRN Reason: Pain or Fever Stop: 11/07/20 00:45 Last Admin: 10/14/20 22:17 Dose: 650 mg Documented by: Albuterol (Albut/Ipratrop 3mg/0.5mg Neb 3 Ml Vial) 3 ml NEB QIDR PRN PRN Reason: Shortness Of Breath Or Wheezing Stop: 11/07/20 06:59 Allopurinol (Allopurinol 100 Mg Tab) 100 mg PO QAM [facility]EM Stop: 11/07/20 08:59 Last Admin: 10/15/20 08:11 Dose: 100 mg Documented by: Amitriptyline HCl (Amitriptyline Hcl 50 Mg Tab) 50 mg PO HS CEM Stop: 11/07/20 20:59 Last Admin: 10/14/20 20:24 Dose: 50 mg Documented by: Apixaban (Apixaban 5 Mg Tablet) 5 mg PO BID CEM Stop: 11/11/20 20:59 Last Admin: 10/15/20 08:11 Dose: 5 mg Documented by: Baclofen (Baclofen 10 Mg Tab) 5 mg PO HS CEM Stop: 11/07/20 20:59 Last Admin: 10/14/20 20:24 Dose: 5 mg Documented by: Dextrose (Dextrose 50% 50 Ml Syringe) 25 - 50 ml IV UD PRN; Protocol PRN Reason: Hypoglycemia Protocol Stop: 11/07/20 00:45 Ferrous Sulfate (Ferrous Sulfate 325 Mg Tab) 325 mg PO BID CEM Stop: 11/07/20 01:44 Last Admin: 10/15/20 08:10 Dose: 325 mg Documented by: Furosemide (Furosemide 80 Mg Tab) 80 mg PO BID17 CEM Stop: 11/07/20 08:59 Last Admin: 10/08/20 08:04 Dose: 80 mg Documented by: Glucagon (Glucagon For Inj 1 Mg Vial) 1 mg SQ UD PRN; Protocol PRN Reason: Hypoglycemia Protocol Stop: 11/07/20 00:45 Glucose (Glucose 10 Tabs/Tube) 4 - 8 tabs PO UD PRN; Protocol PRN Reason: Hypoglycemia Protocol Stop: 11/07/20 00:45 Glucose (Glucose 40% Gel 15 Gm Tube) 15 - 30 gm PO UD PRN; Protocol PRN Reason: Hypoglycemia Protocol Stop: 11/07/20 00:45 Guaifenesin (Guaifenesin 600 Mg Tabcr) 600 mg PO Q12 CEM Stop: 11/13/20 20:59 Last Admin: 10/15/20 08:11 Dose: 600 mg Documented by: Hydralazine HCl (Hydralazine Hcl 25 Mg Tab) 25 mg PO TID CEM Stop: 11/07/20 08:59 Last Admin: 10/15/20 14:11 Dose: 25 mg Documented by: Furosemide 80 mg/ Syringe 8 mls @ 4 mls/min IV Q12 CEM Stop: 11/10/20 20:59 Last Admin: 10/15/20 08:10 Dose: 4 mls/min Documented by: Insulin Aspart (Insulin Aspart 100 Units/Ml 3 Ml Pen) 0 units SC ACHS CEM Stop: 11/07/20 07:29 Last Admin: 10/15/20 11:47 Dose: 3 units Documented by: Insulin Detemir (Insulin Detemir Flexpen/Flex Touch 100 Units/Ml 3ml) 15 units SQ BID CEM Stop: 11/14/20 08:59 Magnesium Chloride (Magnesium Chloride 64mg Delayed Rel Tab) 64 mg PO TID CEM Stop: 11/07/20 08:59 Last Admin: 10/15/20 14:12 Dose: 64 mg Documented by: Metoprolol Succinate (Metoprolol Succ 25mg Ext Rel Tab) 25 mg PO DAILY CEM Stop: 11/07/20 08:59 Last Admin: 10/15/20 08:12 Dose: 25 mg Documented by: Miscellaneous (Carbohydrates For Hypoglycemia ) 15 - 30 gm PO UD PRN PRN Reason: Hypoglycemia Protocol Stop: 11/07/20 00:45 Nitroglycerin (Nitroglycerin Sl 0.4 Mg/Tab Tab) 0.4 mg SL UD PRN PRN Reason: Chest Pain Stop: 11/07/20 00:45 Ondansetron HCl (Ondansetron Inj 2 Mg/Ml 2 Ml Vial) 4 mg IV Q6H PRN PRN Reason: Nausea Stop: 11/07/20 00:45 Pantoprazole Sodium (Pantoprazole 40 Mg Tab) 40 mg PO BID [facility] Stop: 11/07/20 01:44 Last Admin: 10/15/20 08:11 Dose: 40 mg Documented by: Polyethylene Glycol (Polyethylene (Miralax) 17 Gm Pack) 17 gm PO DAILY CEM Stop: 11/12/20 08:59 Last Admin: 10/15/20 08:13 Dose: 17 gm Documented by: Potassium Chloride (Potassium Chloride 20 Meq Tabcr) 20 meq PO TID CEM Stop: 11/08/20 13:59 Last Admin: 10/15/20 14:11 Dose: 20 meq Documented by: Ropinirole HCl (Ropinirole Hcl 5 Mg Tablet) 5 mg PO QID [facility] Stop: 11/07/20 08:59 Last Admin: 10/15/20 14:11 Dose: 5 mg Documented by: Rosuvastatin Calcium (Rosuvastatin Calcium 20 Mg Tab) 40 mg PO DAILY [facility] Stop: 11/07/20 08:59 Last Admin: 10/15/20 08:11 Dose: 40 mg Documented by: Senna/Docusate Sodium (Docusate Sodium/Senna 50/8.6mg Tab) 1 tab PO QAM [facility] Stop: 11/12/20 08:59 Last Admin: 10/15/20 08:11 Dose: 1 tab Documented by: Vitamin D (Cholecalciferol 1,000 Units 25 Mcg Tab) 5,000 units PO QAM [facility] Stop: 11/07/20 08:59 Last Admin: 10/15/20 08:13 Dose: 5,000 units Documented by: PG Care Time/CCT Total # of Minutes Spent Total Time Spent with Patient: Total time spent is greater than 50% in coordination of care (as documented) at patient's floor/unit and/or counseling patient: Coding Level of Care Code 93891 Subseq Hosp Care Lvl 3 Diagnoses Acute on chronic diastolic (congestive) heart failure I50.33 Complicated UTI (urinary tract infection) N39.0 Dysphagia R13.14 Dysphagia type: pharyngoesophageal phase Paraplegia G82.20 Bronchitis J40 Type 2 diabetes mellitus with kidney complication, with long-term current use of insulin E11.29; Z79.4 Chronic right-sided congestive heart failure I50.812 Hypertension I10 Hypertension type: unspecified Atrial fibrillation I48.20 Atrial fibrillation type: unspecified chronic Anemia D64.9 Anemia type: unspecified type CAD (coronary artery disease) I25.10 Indwelling Soto catheter present Z96.0 Acute hypoxemic respiratory failure J96.01 Restless leg syndrome G25.81 Chronic kidney disease, stage 3 N18.3 Morbid obesity with BMI of 45.0-49.9, adult E66.01; Z68.42 DVT prophylaxis Z29.9 (1) Anemia Anemia type: unspecified type Qualified Code(s): D64.9 - Anemia, unspecified (2) Atrial fibrillation Atrial fibrillation type: unspecified chronic Qualified Code(s): I48.20 - Chronic atrial fibrillation, unspecified (3) Dysphagia Dysphagia type: pharyngoesophageal phase Qualified Code(s): R13.14 - Dysphagia, pharyngoesophageal phase (4) Hypertension Hypertension type: unspecified Qualified Code(s): I10 - Essential (primary) hypertension
[2020-10-15] MEDS: ceFAZolin 1000MG 1,000 MG/7.5 ML SYR IV SCH (11:50)
[2020-10-15] MEDS: AMITRIPTYLINE HCL 50 MG TAB PO SCH (21:59)
[2020-10-15] MEDS: BACLOFEN 10 MG TAB PO SCH (21:59)
[2020-10-16 07:17] LABS: Hematocrit (blood only) 28.5 % (37-47); Hemoglobin 8.5 g/dL (12.0-16.0); Mean Corpuscular Hemoglobin 27.1 pg (25-34); Mean Corpuscular Hgb Conc 29.8 g/dL (32-36); Mean Corpuscular Volume 90.8 fL (80-100); Mean Platelet Volume 8.6 fL (7.4-10.4); Platelet Count 244 K/uL (130-400); RDW Coefficient of Variation 17.9 % (11.5-14.5); RDW Standard Deviation 59.1 fL (36.4-46.3); Red Blood Count 3.14 M/uL (4.2-5.4); White Blood Count 6.98 K/uL (4.8-10.8)
[2020-10-16 07:54] LABS: BUN Creatinine Ratio 32.2 (10-20); Calcium 8.6 mg/dl (8.5-10.1); Est GFR (African American) 44.9; Est GFR (Non-African American) 38.7; Magnesium 2.5 mg/dl (1.8-2.4); Potassium 3.8 mmol/L (3.5-5.1)
[2020-10-16 07:57] LABS: Phosphorus 3.4 mg/dl (2.5-4.9)
[2020-10-16] MEDS: INSULIN DETEMIR FLEXPEN/FLEX TOUCH 100 UNITS/ML 3ML SQ SCH ×2 (08:10→20:40)
[2020-10-16] MEDS: INSULIN ASPART 100 UNITS/ML 3 ML PEN SC SCH ×4 (08:11→20:42)
[2020-10-16] MEDS: ROSUVASTATIN CALCIUM 20 MG TAB PO SCH (08:12)
[2020-10-16] MEDS: PANTOprazole 40 MG TAB PO SCH ×2 (08:12→20:38)
[2020-10-16] MEDS: DOCUSATE SODIUM/SENNA 50/8.6MG TAB PO SCH (08:12)
[2020-10-16] MEDS: FERROUS SULFATE 325 MG TAB PO SCH ×2 (08:13→20:38)
[2020-10-16] MEDS: METOPROLOL SUCC 25MG EXT REL TAB PO SCH (08:13)
[2020-10-16] MEDS: guaiFENesin 600 MG TABCR PO SCH ×2 (08:13→20:38)
[2020-10-16] MEDS: hydrALAZINE HCL 25 MG TAB PO SCH ×3 (08:13→20:38)
[2020-10-16] MEDS: POTASSIUM CHLORIDE CRTAB 20 MEQ TABCR PO SCH ×3 (08:13→20:37)
[2020-10-16] MEDS: MAGNESIUM CHLORIDE 64MG DELAYED REL TAB PO SCH ×3 (08:14→20:38)
[2020-10-16] MEDS: allopurinoL 100 MG TAB PO SCH (08:14)
[2020-10-16] MEDS: CHOLECALCIFEROL 1,000 UNITS 25 MCG TAB PO SCH (08:14)
[2020-10-16] MEDS: APIXABAN 5 MG TABLET PO SCH ×2 (08:14→20:37)
[2020-10-16] MEDS: POLYETHYLENE (MIRALAX) 17 GM PACK PO SCH (08:18)
[2020-10-16] MEDS: FUROSEMIDE 80 MG in SYRINGE 0 ML IV SCH ×2 (08:27→20:40)
--- NOTE | 2020-10-16 08:59 | Hospitalist Progress Note ---
Date of Service October 16, 2020 Assessment & Plan (1) Acute on chronic diastolic (congestive) heart failure: Patient believes her dry weight is 90-100kg Will treat diastolic CHF and also right heart failure with IV diuretics. She stated that she takes lasix 60mg BID at home -- receiving lasix 80mg IV BID Monitor intake and output, daily weights 11- 121.6kg 11-12 113.5kg - 112kg, CXR with improving bilateral airspace opacities and small right effusion 10-15 110.6kg, down 24 pounds, legs still 3+ bilateral pitting edema. continue diuresis 10-16 108.2kg, continue diuresis (2) Bronchitis: Parenteral steroids discontinued. cont bronchodilators. cont flutter valve 10-14 started mucinex 10-16 cough is improving with diuresis (3) Type 2 diabetes mellitus with kidney complication, with long-term current use of insulin: She uses levemir 22units twice daily at home ADA diet. Sliding scale coverage - Basal insulin uptitrated 25units BID in setting of steroids 10-15 hypoglycemic but asymptomatic, decreased levemir to 15 units BID - BG 91 this morning, well controlled yesterday BG range 70 - 119 (4) Dysphagia: 10-11 speech therapy saw and no concern for aspiration - GI consulted for sensation that food gets stuck, GI deemed too high risk for EGD recommended continued speech therapy and possible VFSS patient doing well with smaller pieces of meat (5) Paraplegia: acquired h/o lumbar back surgery and thoracic neuroendocrine tumor with resulting acquired paraplegia. Continue supportive care suprapubic catheter for neurogenic bladder (6) Anemia: Hb stable monitor CBC daily (7) Hypertension: cont home meds hydralazine 25mg TID toprol xl 25mg daily (8) Atrial fibrillation: rate controlled 10-12 restarted eliquis (9) Chronic kidney disease, stage 3: baseline Cr about 1.4 creatinine very near baseline. Will follow. BMP am (10) CAD (coronary artery disease): no ischemic sx's at this time cont BB cont statin (11) Indwelling Soto catheter present: suprapubic catheter due to chronic neurogenic bladder (12) Restless leg syndrome: cont ropinirole (13) Morbid obesity with BMI of 45.0-49.9, adult: BMI 45 (14) Chronic right-sided congestive heart failure: acute/chronic. see above in acute on chronic diastolic heart failure cont beta jody & IV diuretics. (15) Complicated UTI (urinary tract infection): Related to chronic indwelling suprapubic catheter 10-07 urine Cx with > 100,000 CFU pansensitive e.coli. 10-07 evening to 10-10 zosyn 10-10 transitioned to intravenous cefazolin, to be completed 10-15 morning 10-[address] [place] -- no need to exchange suprapubic catheter at this time 10-15 stop cefazolin (16) Acute hypoxemic respiratory failure: resolved, off oxygen CXR shows pulmonary edema. AHRF likely 2' to CHF exacerbation COVID-19 PCR negative at admission, [employer] panel which includes COVID-19 was also negative. MRSA swab negative (17) DVT prophylaxis: started eliquis and luis hose home once medically stable, home is handicap accessible and daily caregivers are present Admission and Anticipated Discharge Date Admission Date: October 07, 2020 Subjective Patient still with lower extremity edema which does not seem to be improving. Cough is getting better, less phlegm, still unable to cough anything up. Denies chest pain. Her appetite is good. Did not have swallowing difficulty today. Mood is good. She looks forward to going home for the holidays to be with family. Wants to be closer to her dry weight to avoid bouncing back to hospital. Review of Systems Constitutional: no fever, no chills, no fatigue, no weakness, no anorexia, no weight loss and no weight gain Ear, Nose, Mouth, Throat: no nasal congestion, no sore throat and no dysphagia Respiratory: + cough; no dyspnea Cardiovascular: + edema; no chest pain, no dyspnea on exertion, no orthopnea and no palpitations Gastrointestinal: no abdominal pain, no nausea, no vomiting, no hematemesis, no dysphagia, no constipation, no diarrhea/loose stools, no blood in stools and no melena Genitourinary: no dysuria, no urinary frequency, no hematuria and no flank pain Musculoskeletal: no back pain, no joint pain, no myalgia and no muscle weakness Integumentary: no rash, no lesions, no skin ulcer, no erythema, no dry skin and no pruritus Neurologic: no falls, no localized weakness, no generalized weakness, no numbness, no paresthesia, no tremor(s) and no headache(s) Psychiatric: no depression, no suicidal ideation, no homicidal ideation and no anxiety Endocrine: no cold intolerance and no heat intolerance Hematologic / Lymphatic: no easy bleeding and no easy bruising Physical Exam Constitutional: well developed, well nourished and + morbidly obese; no acute distress Eyes: PERRL, conjunctivae normal, anicteric sclerae ENMT: Mouth: oral mucous membranes not dry Respiratory: normal respiratory effort; no respiratory distress and no labored breathing Auscultation: + rales and + wheezes; + lungs not clear to auscultation, no crackles and no rhonchi Cardiovascular: Rate/Rhythm: regular rate and regular rhythm Heart Sounds: no murmur and no cardiac rub Vessels: normal peripheral pulses and radial pulses present; no JVD Extremities: + edema (3+ bilateral LE pitting edema) Gastrointestinal (Abdomen): Inspection/Auscultation: abdomen normal to inspection and normal bowel sounds; abdomen not distended Percussion/Palpation: abdomen soft; abdomen nontender, no guarding, abdomen not rigid and no hepatosplenomegaly Musculoskeletal: Head/Neck/Chest: normocephalic and head atraumatic Spine: no cervical spinal tenderness, no cervical muscular tenderness, no thoracic spinal tenderness and no lumbar spinal tenderness Skin: no rashes, warm and dry Neurologic: CN's II-XI intact bilaterally and moves all extremities Motor/Sensory: no tremor and no sensory deficit Psychiatric: Orientation: alert, oriented to person, oriented to place and oriented to time Apperance: appropriately groomed; not disheveled Affect: euthymic affect; no anxious affect and no tearful affect Genitourinary: no CVA tenderness (suprapubic catheter with clear yellow urine) Results & Data Results & Data ([facility]) Vital Signs (Past 12 Hours) Vital Signs Temp Pulse Pulse Resp BP BP Pulse Ox 10/16/20 07:30 36.6 C 66 18 146/61 H 91 10/16/20 07:17 70 10/16/20 03:51 36.7 C 78 16 142/72 H 94 10/15/20 22:59 36.7 C 86 18 133/85 94 Laboratory Results Abnormal lab results 10/15/20 10/15/20 10/16/20 Range/Units 11:13 20:20 07:01 RBC 3.14 L (4.2-5.4) M/uL Hgb 8.5 L (12.0-16.0) g/dL Hct 28.5 L (37-47) % MCHC 29.8 L (32-36) g/dL RDW Std Deviation 59.1 H (36.4-46.3) fL RDW Coeff of Lelo 17.9 H (11.5-14.5) % Anion Gap (3-11) BUN (7-18) mg/dl Creatinine (0.6-1.2) mg/dl BUN/Creatinine Ratio (10-20) POC Glucose 106 H 119 H (70-99) mg/dl Magnesium (1.8-2.4) mg/dl 10/16/20 Range/Units 07:01 RBC (4.2-5.4) M/uL Hgb (12.0-16.0) g/dL Hct (37-47) % MCHC (32-36) g/dL RDW Std Deviation (36.4-46.3) fL RDW Coeff of Lelo (11.5-14.5) % Anion Gap 2.0 L (3-11) BUN 43 H (7-18) mg/dl Creatinine 1.33 H (0.6-1.2) mg/dl BUN/Creatinine Ratio 32.2 H (10-20) POC Glucose (70-99) mg/dl Magnesium 2.5 H (1.8-2.4) mg/dl Medications Administered Current Inpatient Medications Acetaminophen (Acetaminophen 325 Mg Tab) 650 mg PO Q4H PRN PRN Reason: Pain or Fever Stop: 11/07/20 00:45 Last Admin: 10/14/20 22:17 Dose: 650 mg Documented by: Albuterol (Albut/Ipratrop 3mg/0.5mg Neb 3 Ml Vial) 3 ml NEB QIDR PRN PRN Reason: Shortness Of Breath Or Wheezing Stop: 11/07/20 06:59 Allopurinol (Allopurinol 100 Mg Tab) 100 mg PO QAM CEM Stop: 11/07/20 08:59 Last Admin: 10/16/20 08:14 Dose: 100 mg Documented by: Amitriptyline HCl (Amitriptyline Hcl 50 Mg Tab) 50 mg PO HS CEM Stop: 11/07/20 20:59 Last Admin: 10/15/20 21:59 Dose: 50 mg Documented by: Apixaban (Apixaban 5 Mg Tablet) 5 mg PO BID CEM Stop: 11/11/20 20:59 Last Admin: 10/16/20 08:14 Dose: 5 mg Documented by: Baclofen (Baclofen 10 Mg Tab) 5 mg PO HS CEM Stop: 11/07/20 20:59 Last Admin: 10/15/20 21:59 Dose: 5 mg Documented by: Dextrose (Dextrose 50% 50 Ml Syringe) 25 - 50 ml IV UD PRN; Protocol PRN Reason: Hypoglycemia Protocol Stop: 11/07/20 00:45 Ferrous Sulfate (Ferrous Sulfate 325 Mg Tab) 325 mg PO BID CEM Stop: 11/07/20 01:44 Last Admin: 10/16/20 08:13 Dose: 325 mg Documented by: Furosemide (Furosemide 80 Mg Tab) 80 mg PO BID17 CEM Stop: 11/07/20 08:59 Last Admin: 10/08/20 08:04 Dose: 80 mg Documented by: Glucagon (Glucagon For Inj 1 Mg Vial) 1 mg SQ UD PRN; Protocol PRN Reason: Hypoglycemia Protocol Stop: 11/07/20 00:45 Glucose (Glucose 10 Tabs/Tube) 4 - 8 tabs PO UD PRN; Protocol PRN Reason: Hypoglycemia Protocol Stop: 11/07/20 00:45 Glucose (Glucose 40% Gel 15 Gm Tube) 15 - 30 gm PO UD PRN; Protocol PRN Reason: Hypoglycemia Protocol Stop: 11/07/20 00:45 Guaifenesin (Guaifenesin 600 Mg Tabcr) 600 mg PO Q12 CEM Stop: 11/13/20 20:59 Last Admin: 10/16/20 08:13 Dose: 600 mg Documented by: Hydralazine HCl (Hydralazine Hcl 25 Mg Tab) 25 mg PO TID CEM Stop: 11/07/20 08:59 Last Admin: 10/16/20 08:13 Dose: 25 mg Documented by: Furosemide 80 mg/ Syringe 8 mls @ 4 mls/min IV Q12 CEM Stop: 11/10/20 20:59 Last Admin: 10/16/20 08:27 Dose: 4 mls/min Documented by: Insulin Aspart (Insulin Aspart 100 Units/Ml 3 Ml Pen) 0 units SC ACHS CEM Stop: 11/07/20 07:29 Last Admin: 10/16/20 08:11 Dose: 3 units Documented by: Insulin Detemir (Insulin Detemir Flexpen/Flex Touch 100 Units/Ml 3ml) 15 units SQ BID CEM Stop: 11/14/20 08:59 Last Admin: 10/16/20 08:10 Dose: 15 units Documented by: Magnesium Chloride (Magnesium Chloride 64mg Delayed Rel Tab) 64 mg PO TID CEM Stop: 11/07/20 08:59 Last Admin: 10/16/20 08:14 Dose: 64 mg Documented by: Metoprolol Succinate (Metoprolol Succ 25mg Ext Rel Tab) 25 mg PO DAILY CEM Stop: 11/07/20 08:59 Last Admin: 10/16/20 08:13 Dose: 25 mg Documented by: Miscellaneous (Carbohydrates For Hypoglycemia ) 15 - 30 gm PO UD PRN PRN Reason: Hypoglycemia Protocol Stop: 11/07/20 00:45 Nitroglycerin (Nitroglycerin Sl 0.4 Mg/Tab Tab) 0.4 mg SL UD PRN PRN Reason: Chest Pain Stop: 11/07/20 00:45 Ondansetron HCl (Ondansetron Inj 2 Mg/Ml 2 Ml Vial) 4 mg IV Q6H PRN PRN Reason: Nausea Stop: 11/07/20 00:45 Pantoprazole Sodium (Pantoprazole 40 Mg Tab) 40 mg PO BID [facility] Stop: 11/07/20 01:44 Last Admin: 10/16/20 08:12 Dose: 40 mg Documented by: Polyethylene Glycol (Polyethylene (Miralax) 17 Gm Pack) 17 gm PO DAILY CEM Stop: 11/12/20 08:59 Last Admin: 10/16/20 08:18 Dose: 17 gm Documented by: Potassium Chloride (Potassium Chloride 20 Meq Tabcr) 20 meq PO TID CEM Stop: 11/08/20 13:59 Last Admin: 10/16/20 08:13 Dose: 20 meq Documented by: Ropinirole HCl (Ropinirole Hcl 5 Mg Tablet) 5 mg PO QID [facility] Stop: 11/07/20 08:59 Last Admin: 10/16/20 08:14 Dose: 5 mg Documented by: Rosuvastatin Calcium (Rosuvastatin Calcium 20 Mg Tab) 40 mg PO DAILY [facility] Stop: 11/07/20 08:59 Last Admin: 10/16/20 08:12 Dose: 40 mg Documented by: Senna/Docusate Sodium (Docusate Sodium/Senna 50/8.6mg Tab) 1 tab PO QAM [facility] Stop: 11/12/20 08:59 Last Admin: 10/16/20 08:12 Dose: 1 tab Documented by: Vitamin D (Cholecalciferol 1,000 Units 25 Mcg Tab) 5,000 units PO QAM CEM Stop: 11/07/20 08:59 Last Admin: 10/16/20 08:14 Dose: 5,000 units Documented by: PG Care Time/CCT Total # of Minutes Spent Total Time Spent with Patient: Total time spent is greater than 50% in coordination of care (as documented) at patient's floor/unit and/or counseling patient: Coding Level of Care Code 39533 Subseq Hosp Care Lvl 3 Diagnoses Acute on chronic diastolic (congestive) heart failure I50.33 Bronchitis J40 Type 2 diabetes mellitus with kidney complication, with long-term current use of insulin E11.29; Z79.4 Dysphagia R13.14 Dysphagia type: pharyngoesophageal phase Paraplegia G82.20 Anemia D64.9 Anemia type: unspecified type Hypertension I10 Hypertension type: unspecified Atrial fibrillation I48.20 Atrial fibrillation type: unspecified chronic Chronic kidney disease, stage 3 N18.30 Chronic kidney disease stage 3 subtype: unspecified whether 3a or 3b CAD (coronary artery disease) I25.10 Associated angina: without angina Coronary Disease-Associated Artery/Lesion type: [place] artery [place] vs. transplanted heart: [place] heart Indwelling Soto catheter present Z96.0 Restless leg syndrome G25.81 Morbid obesity with BMI of 45.0-49.9, adult E66.01; Z68.42 Chronic right-sided congestive heart failure I50.812 Complicated UTI (urinary tract infection) N39.0 Acute hypoxemic respiratory failure J96.01 DVT prophylaxis Z29.9 (1) Chronic kidney disease, stage 3 Chronic kidney disease stage 3 subtype: unspecified whether 3a or 3b Qualified Code(s): N18.30 - Chronic kidney disease, stage 3 unspecified (2) CAD (coronary artery disease) Associated angina: without angina Coronary Disease-Associated Artery/Lesion t ype: [place] artery [place] vs. transplanted heart: [place] heart Qualified Code(s): I25.10 - Atherosclerotic heart disease of [place] coronary artery without angina pectoris (3) Anemia Anemia type: unspecified type Qualified Code(s): D64.9 - Anemia, unspecified (4) Atrial fibrillation Atrial fibrillation type: unspecified chronic Qualified Code(s): I48.20 - Chronic atrial fibrillation, unspecified (5) Dysphagia Dysphagia type: pharyngoesophageal phase Qualified Code(s): R13.14 - Dysphagia, pharyngoesophageal phase (6) Hypertension Hypertension type: unspecified Qualified Code(s): I10 - Essential (primary) hypertension
[2020-10-16] MEDS: AMITRIPTYLINE HCL 50 MG TAB PO SCH (20:37)
[2020-10-16] MEDS: BACLOFEN 10 MG TAB PO SCH (20:37)
[2020-10-17 07:29] LABS: Hematocrit (blood only) 28.5 % (37-47); Hemoglobin 8.5 g/dL (12.0-16.0); Mean Corpuscular Hemoglobin 27.2 pg (25-34); Mean Corpuscular Hgb Conc 29.8 g/dL (32-36); Mean Corpuscular Volume 91.1 fL (80-100); Mean Platelet Volume 8.9 fL (7.4-10.4); Platelet Count 246 K/uL (130-400); RDW Coefficient of Variation 17.8 % (11.5-14.5); RDW Standard Deviation 59.8 fL (36.4-46.3); Red Blood Count 3.13 M/uL (4.2-5.4); White Blood Count 6.57 K/uL (4.8-10.8)
[2020-10-17 07:57] LABS: Calcium 8.9 mg/dl (8.5-10.1); Creatinine Clr Calc Pharmacy 42.1 ml/min; Est GFR (African American) 42.6; Est GFR (Non-African American) 36.7; Magnesium 2.6 mg/dl (1.8-2.4); Phosphorus 3.5 mg/dl (2.5-4.9); Potassium 3.7 mmol/L (3.5-5.1)
[2020-10-17] MEDS: FUROSEMIDE 80 MG in SYRINGE 0 ML IV SCH ×2 (08:13→21:21)
[2020-10-17] MEDS: INSULIN ASPART 100 UNITS/ML 3 ML PEN SC SCH ×4 (08:14→21:14)
[2020-10-17] MEDS: INSULIN DETEMIR FLEXPEN/FLEX TOUCH 100 UNITS/ML 3ML SQ SCH ×2 (08:14→21:21)
[2020-10-17] MEDS: DOCUSATE SODIUM/SENNA 50/8.6MG TAB PO SCH (08:16)
[2020-10-17] MEDS: POLYETHYLENE (MIRALAX) 17 GM PACK PO SCH (08:16)
[2020-10-17] MEDS: guaiFENesin 600 MG TABCR PO SCH ×2 (08:16→21:18)
[2020-10-17] MEDS: MAGNESIUM CHLORIDE 64MG DELAYED REL TAB PO SCH ×3 (08:16→21:19)
[2020-10-17] MEDS: PANTOprazole 40 MG TAB PO SCH ×2 (08:17→21:21)
[2020-10-17] MEDS: APIXABAN 5 MG TABLET PO SCH ×2 (08:17→21:19)
[2020-10-17] MEDS: FERROUS SULFATE 325 MG TAB PO SCH ×2 (08:17→21:21)
[2020-10-17] MEDS: POTASSIUM CHLORIDE CRTAB 20 MEQ TABCR PO SCH ×3 (08:17→21:17)
[2020-10-17] MEDS: allopurinoL 100 MG TAB PO SCH (08:18)
[2020-10-17] MEDS: METOPROLOL SUCC 25MG EXT REL TAB PO SCH (08:18)
[2020-10-17] MEDS: ROSUVASTATIN CALCIUM 20 MG TAB PO SCH (08:18)
[2020-10-17] MEDS: hydrALAZINE HCL 25 MG TAB PO SCH ×3 (08:18→21:19)
[2020-10-17] MEDS: CHOLECALCIFEROL 1,000 UNITS 25 MCG TAB PO SCH (08:18)
--- NOTE | 2020-10-17 14:11 | Hospitalist Progress Note ---
Date of Service October 17, 2020 Assessment & Plan (1) Acute hypoxemic respiratory failure: resolved likely combination of acute bronchitis and acute/chronic CHF COVID-19 PCR negative at admission [employer] panel which includes COVID-19 was also negative MRSA swab negative (2) Acute on chronic diastolic (congestive) heart failure: Patient believes her dry weight is 90-100kg although she has not been below 100kg since [id number] she has had net neg 20 liters out since admission with decreasing weights and stable Creatinine will cont IV lasix as previous repeat weight and BMP am (3) Chronic right-sided congestive heart failure: acute/chronic. see above in acute on chronic diastolic heart failure cont beta jody & IV diuretics. (4) Bronchitis: improved COVID-19 negative x 2 early this stay [employer] resp panel negative wheezing improved cont flutter valve, mucinex, diuresis, bronchodilators (5) Type 2 diabetes mellitus with kidney complication, with long-term current use of insulin: she uses levemir 22units twice daily at home Now on 15 units BID of such along with novolog sliding scale control satisfactory (6) Dysphagia: 11-10 speech therapy saw and no concern for aspiration 11-12 GI consulted for sensation that food gets stuck, GI deemed too high risk for EGD has been doing ok last few days with "easy to chew" diet (7) Paraplegia: acquired h/o lumbar back surgery and thoracic neuroendocrine tumor with resulting acquired paraplegia. Continue supportive care suprapubic catheter for neurogenic bladder (8) Anemia: Hb stable low to mid 8's on her eliquis previous admission - heme+ stool, concern for GI bleeding trend H/H's (9) Hypertension: cont home meds hydralazine 25mg TID toprol xl 25mg daily controlled (10) Atrial fibrillation: rate controlled with toprol xl 11-11 restarted eliquis and H/H stable since (11) Chronic kidney disease, stage 3: baseline Cr about 1.4 daily BMP in face of diuresis (12) CAD (coronary artery disease): no ischemic sx's at this time cont BB cont statin (13) Indwelling Soto catheter present: suprapubic catheter due to chronic neurogenic bladder urology stated the catheter does not need to be exchanged at this time (14) Restless leg syndrome: cont ropinirole (15) Morbid obesity with BMI of 45.0-49.9, adult: BMI about 40 now s/p diuresis (16) Complicated UTI (urinary tract infection): Related to chronic indwelling suprapubic catheter 11-6 urine Cx with > 100,000 CFU pansensitive e.coli completed 7+ days of IV antibiotic therapy resolved (17) DVT prophylaxis: eliquis BID cont PT/OT Admission and Anticipated Discharge Date Admission Date: October 07, 2020 Subjective tele - a.fib vs junctional patient c/o cough/wheeze but much improved from prior no dyspnea no chest pain eating ok c/o ongoing edema- feels it isn't much better than earlier this stay Review of Systems Constitutional: no fever, no body aches, no fatigue and no anorexia Respiratory: + cough and + wheezing; no sputum production Cardiovascular: no chest pain Gastrointestinal: no abdominal pain Physical Exam Constitutional: + morbidly obese; no acute distress, not ill appearing and no altered mental status ENMT: external ear and nose normal, oropharynx normal Respiratory: no respiratory distress Auscultation: + crackles (bases minimal) and + wheezes (Right base > left base) Cardiovascular: Rate/Rhythm: regular rate and + irregularly irregular Heart Sounds: normal S1, normal S2 and + murmur (2/6 RUSB systolic and LLSB) Vessels: + JVD, posterior tibial pulses present and dorsalis pedis pulses present Extremities: + edema (2+ b/l) Gastrointestinal (Abdomen): normal bowel sounds, soft, nontender, no hepatosplenomegaly Percussion/Palpation: + hernia (reducible ) Psychiatric: Orientation: alert and oriented x 3 Results & Data Results & Data ([facility]) Vital Signs (Past 12 Hours) Vital Signs Temp Pulse Pulse Resp BP BP Pulse Ox 10/17/20 11:04 36.7 C 69 20 137/70 95 10/17/20 07:36 67 10/17/20 07:21 36.9 C 67 19 131/71 91 10/17/20 02:21 36.7 C 66 18 135/69 91 Laboratory Results Laboratory Results - last 24 hr 10/16/20 10/16/20 10/17/20 16:28 20:03 06:49 WBC 6.57 RBC 3.13 L Hgb 8.5 L Hct 28.5 L MCV 91.1 MCH 27.2 MCHC 29.8 L RDW Std Deviation 59.8 H RDW Coeff of Lelo 17.8 H Plt Count 246 MPV 8.9 Sodium Potassium Chloride Carbon Dioxide Anion Gap BUN Creatinine Est Cr Clr Drug Dosing Est GFR ( Amer) Est GFR (Non-Af Amer) BUN/Creatinine Ratio Glucose POC Glucose 102 H 169 H Calcium Phosphorus Magnesium 10/17/20 10/17/20 10/17/20 06:49 07:15 11:37 WBC RBC Hgb Hct MCV MCH MCHC RDW Std Deviation RDW Coeff of Lelo Plt Count MPV Sodium 139 Potassium 3.7 Chloride 104 Carbon Dioxide 30 Anion Gap 5.0 BUN 40 H Creatinine 1.39 H Est Cr Clr Drug Dosing 42.1 Est GFR ( Amer) 42.6 Est GFR (Non-Af Amer) 36.7 BUN/Creatinine Ratio 29.0 H Glucose 89 POC Glucose 96 111 H Calcium 8.9 Phosphorus 3.5 Magnesium 2.6 H PG Care Time/CCT Total # of Minutes Spent Total Time Spent with Patient: Total time spent is greater than 50% in coordination of care (as documented) at patient's floor/unit and/or counseling patient: Coding Level of Care Code 31153 Subseq Hosp Care Lvl 2 Diagnoses Acute hypoxemic respiratory failure J96.01 Acute on chronic diastolic (congestive) heart failure I50.33 Chronic right-sided congestive heart failure I50.812 Bronchitis J40 Type 2 diabetes mellitus with kidney complication, with long-term current use of insulin E11.29; Z79.4 Dysphagia R13.14 Dysphagia type: pharyngoesophageal phase Paraplegia G82.20 Anemia D64.9 Anemia type: unspecified type Hypertension I10 Hypertension type: unspecified Atrial fibrillation I48.20 Atrial fibrillation type: unspecified chronic Chronic kidney disease, stage 3 N18.30 Chronic kidney disease stage 3 subtype: unspecified whether 3a or 3b CAD (coronary artery disease) I25.10 Associated angina: without angina Coronary Disease-Associated Artery/Lesion type: [place] artery [place] vs. transplanted heart: [place] heart Indwelling Soto catheter present Z96.0 Restless leg syndrome G25.81 Morbid obesity with BMI of 45.0-49.9, adult E66.01; Z68.42 Complicated UTI (urinary tract infection) N39.0 DVT prophylaxis Z29.9 (1) Chronic kidney disease, stage 3 Chronic kidney disease stage 3 subtype: unspecified whether 3a or 3b Qualified Code(s): N18.30 - Chronic kidney disease, stage 3 unspecified (2) CAD (coronary artery disease) Associated angina: without angina Coronary Disease-Associated Artery/Lesion type: [place] artery [place] vs. transplanted heart: [place] heart Qualified Code(s): I25.10 - Atherosclerotic heart disease of [place] coronary artery without angina pectoris (3) Anemia Anemia type: unspecified type Qualified Code(s): D64.9 - Anemia, unspecified (4) Atrial fibrillation Atrial fibrillation type: unspecified chronic Qualified Code(s): I48.20 - Chronic atrial fibrillation, unspecified (5) Dysphagia Dysphagia type: pharyngoesophageal phase Qualified Code(s): R13.14 - Dysphagia, pharyngoesophageal phase (6) Hypertension Hypertension type: unspecified Qualified Code(s): I10 - Essential (primary) hypertension
[2020-10-17] MEDS: AMITRIPTYLINE HCL 50 MG TAB PO SCH (21:18)
[2020-10-17] MEDS: BACLOFEN 10 MG TAB PO SCH (21:20)
[2020-10-18] MEDS: INSULIN DETEMIR FLEXPEN/FLEX TOUCH 100 UNITS/ML 3ML SQ SCH ×2 (08:19→21:25)
[2020-10-18] MEDS: POLYETHYLENE (MIRALAX) 17 GM PACK PO SCH (08:19)
[2020-10-18] MEDS: INSULIN ASPART 100 UNITS/ML 3 ML PEN SC SCH ×4 (08:21→21:24)
[2020-10-18] MEDS: PANTOprazole 40 MG TAB PO SCH ×2 (08:22→20:13)
[2020-10-18] MEDS: METOPROLOL SUCC 25MG EXT REL TAB PO SCH (08:22)
[2020-10-18] MEDS: CHOLECALCIFEROL 1,000 UNITS 25 MCG TAB PO SCH (08:22)
[2020-10-18] MEDS: FERROUS SULFATE 325 MG TAB PO SCH ×2 (08:22→20:10)
[2020-10-18] MEDS: hydrALAZINE HCL 25 MG TAB PO SCH ×3 (08:22→20:09)
[2020-10-18] MEDS: DOCUSATE SODIUM/SENNA 50/8.6MG TAB PO SCH (08:23)
[2020-10-18] MEDS: POTASSIUM CHLORIDE CRTAB 20 MEQ TABCR PO SCH ×3 (08:23→20:10)
[2020-10-18] MEDS: guaiFENesin 600 MG TABCR PO SCH ×2 (08:23→20:11)
[2020-10-18] MEDS: ROSUVASTATIN CALCIUM 20 MG TAB PO SCH (08:23)
[2020-10-18] MEDS: allopurinoL 100 MG TAB PO SCH (08:23)
[2020-10-18] MEDS: APIXABAN 5 MG TABLET PO SCH ×2 (08:23→20:09)
[2020-10-18] MEDS: MAGNESIUM CHLORIDE 64MG DELAYED REL TAB PO SCH ×3 (08:23→20:12)
[2020-10-18 08:31] LABS: BUN Creatinine Ratio 28.7 (10-20); Calcium 8.7 mg/dl (8.5-10.1); Est GFR (African American) 44.1; Potassium 3.8 mmol/L (3.5-5.1)
[2020-10-18] MEDS: FUROSEMIDE 80 MG in SYRINGE 0 ML IV SCH ×2 (09:38→20:06)
[2020-10-18] MEDS: BACLOFEN 10 MG TAB PO SCH (20:08)
[2020-10-18] MEDS: AMITRIPTYLINE HCL 50 MG TAB PO SCH (20:10)
--- NOTE | 2020-10-18 20:10 | Hospitalist Progress Note ---
Date of Service October 18, 2020 Assessment & Plan (1) Acute hypoxemic respiratory failure: resolved likely combination of acute bronchitis and acute/chronic CHF COVID-19 PCR negative at admission [facility] panel which includes COVID-19 was also negative MRSA swab negative (2) Acute on chronic diastolic (congestive) heart failure: Patient believes her dry weight is 90-100kg although she has not been below 100kg since [id number] she has had net neg 20 liters out since admission with ongoing decreasing weights and stable Creatinine will cont IV lasix repeat weight and BMP am (3) Chronic right-sided congestive heart failure: acute/chronic. see above in acute on chronic diastolic heart failure cont beta jody & IV diuretics. 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 Continue supportive care suprapubic catheter for neurogenic bladder (8) Anemia: Hb stable low to mid 8's on her eliquis previous admission - heme+ stool, concern for GI bleeding trend H/H's (9) Hypertension: cont home meds hydralazine 25mg TID toprol xl 25mg daily controlled (10) Atrial fibrillation: rate controlled with toprol xl 11-11 restarted eliquis and H/H stable since ?accelerated junctional rhythm on tele? will d/w cardiology (11) Chronic kidney disease, stage 3: baseline Cr about 1.4 daily BMP in face of diuresis (12) CAD (coronary artery disease): no ischemic sx's at this time cont BB cont statin (13) Indwelling Soto catheter present: suprapubic catheter due to chronic neurogenic bladder urology stated the catheter does not need to be exchanged at this time (14) Restless leg syndrome: cont ropinirole (15) Morbid obesity with BMI of 45.0-49.9, adult: BMI about 40 now s/p diuresis (16) Complicated UTI (urinary tract infection): Related to chronic indwelling suprapubic catheter 11-6 urine Cx with > 100,000 CFU pansensitive e.coli completed 7+ days of IV antibiotic therapy (17) DVT prophylaxis: eliquis BID cont PT/OT updated by phone this evening Admission and Anticipated Discharge Date Admission Date: October 07, 2020 Subjective tele - a.fib low 60s vs accelerated junctional. no pauses or block. no new issues overnight. feeling good. eating well. still c/o edema and says "when will it ever go away?" Review of Systems Constitutional: + fatigue; no fever, no chills and no anorexia Respiratory: + cough and + wheezing; no sputum production Cardiovascular: no chest pain Gastrointestinal: no abdominal pain, no nausea and no vomiting Physical Exam Constitutional: + morbidly obese; no acute distress, not ill appearing and no altered mental status ENMT: external ear and nose normal, oropharynx normal Respiratory: no respiratory distress Auscultation: + crackles (right base) and + wheezes (Right lung; scant L lung) Cardiovascular: Rate/Rhythm: regular rate and + irregularly irregular Heart Sounds: normal S1, normal S2 and + murmur (2/6 RUSB systolic and LLSB) Vessels: + JVD, posterior tibial pulses present and dorsalis pedis pulses present Extremities: + edema (1-2+ b/l) Gastrointestinal (Abdomen): normal bowel sounds, soft, nontender, no hepatosplenomegaly Percussion/Palpation: + hernia (reducible ) Psychiatric: Orientation: alert and oriented x 3 Results & Data Results & Data ([facility]) Vital Signs (Past 12 Hours) Vital Signs Temp Pulse Resp BP BP Pulse Ox 10/18/20 19:48 36.4 C L 61 16 134/72 93 10/18/20 15:31 37.3 C 61 18 133/70 92 10/18/20 11:08 36.5 C 63 20 115/64 92 Laboratory Results Laboratory Results - last 24 hr 10/17/20 10/18/20 10/18/20 20:27 07:20 07:50 Sodium 138 Potassium 3.8 Chloride 103 Carbon Dioxide 30 Anion Gap 6.0 BUN 39 H Creatinine 1.35 H Est Cr Clr Drug Dosing 43.0 Est GFR ( Amer) 44.1 Est GFR (Non-Af Amer) 38.0 BUN/Creatinine Ratio 28.7 H Glucose 80 POC Glucose 138 H 100 H Calcium 8.7 10/18/20 10/18/20 11:32 16:22 Sodium Potassium Chloride Carbon Dioxide Anion Gap BUN Creatinine Est Cr Clr Drug Dosing Est GFR ( Amer) Est GFR (Non-Af Amer) BUN/Creatinine Ratio Glucose POC Glucose 111 H 88 Calcium PG Care Time/CCT Total # of Minutes Spent Total Time Spent with Patient: Total time spent is greater than 50% in coordination of care (as documented) at patient's floor/unit and/or counseling patient: Coding Level of Care Code 56184 Subseq Hosp Care Lvl 2 Diagnoses Acute hypoxemic respiratory failure J96.01 Acute on chronic diastolic (congestive) heart failure I50.33 Chronic right-sided congestive heart failure I50.812 Bronchitis J40 Type 2 diabetes mellitus with kidney complication, with long-term current use of insulin E11.29; Z79.4 Dysphagia R13.14 Dysphagia type: pharyngoesophageal phase Paraplegia G82.20 Anemia D64.9 Anemia type: unspecified type Hypertension I10 Hypertension type: unspecified Atrial fibrillation I48.20 Atrial fibrillation type: unspecified chronic Chronic kidney disease, stage 3 N18.30 Chronic kidney disease stage 3 subtype: unspecified whether 3a or 3b CAD (coronary artery disease) I25.10 Associated angina: without angina Coronary Disease-Associated Artery/Lesion type: [place] artery [place] vs. transplanted heart: [place] heart Indwelling Soto catheter present Z96.0 Restless leg syndrome G25.81 Morbid obesity with BMI of 45.0-49.9, adult E66.01; Z68.42 Complicated UTI (urinary tract infection) N39.0 DVT prophylaxis Z29.9 (1) Chronic kidney disease, stage 3 Chronic kidney disease stage 3 subtype: unspecified whether 3a or 3b Qualified Code(s): N18.30 - Chronic kidney disease, stage 3 unspecified (2) CAD (coronary artery disease) Associated angina: without angina Coronary Disease-Associated Artery/Lesion type: [place] artery [place] vs. transplanted heart: [place] heart Qualified Code(s): I25.10 - Atherosclerotic heart disease of [place] coronary artery without angina pectoris (3) Anemia Anemia type: unspecified type Qualified Code(s): D64.9 - Anemia, unspecified (4) Atrial fibrillation Atrial fibrillation type: unspecified chronic Qualified Code(s): I48.20 - Chronic atrial fibrillation, unspecified (5) Dysphagia Dysphagia type: pharyngoesophageal phase Qualified Code(s): R13.14 - Dysphagia, pharyngoesophageal phase (6) Hypertension Hypertension type: unspecified Qualified Code(s): I10 - Essential (primary) h ypertension
[2020-10-19 08:17] LABS: Hematocrit (blood only) 28.6 % (37-47); Hemoglobin 8.3 g/dL (12.0-16.0); Mean Corpuscular Hemoglobin 26.9 pg (25-34); Mean Corpuscular Volume 92.6 fL (80-100); Platelet Count 229 K/uL (130-400); RDW Coefficient of Variation 17.8 % (11.5-14.5); RDW Standard Deviation 60.3 fL (36.4-46.3); Red Blood Count 3.09 M/uL (4.2-5.4)
[2020-10-19] MEDS: FUROSEMIDE 80 MG in SYRINGE 0 ML IV SCH ×2 (08:29→20:45)
[2020-10-19] MEDS: guaiFENesin 600 MG TABCR PO SCH ×2 (08:30→20:45)
[2020-10-19] MEDS: POTASSIUM CHLORIDE CRTAB 20 MEQ TABCR PO SCH ×3 (08:30→20:46)
[2020-10-19] MEDS: hydrALAZINE HCL 25 MG TAB PO SCH ×3 (08:30→20:46)
[2020-10-19] MEDS: MAGNESIUM CHLORIDE 64MG DELAYED REL TAB PO SCH ×3 (08:30→20:42)
[2020-10-19] MEDS: PANTOprazole 40 MG TAB PO SCH ×2 (08:31→20:43)
[2020-10-19] MEDS: FERROUS SULFATE 325 MG TAB PO SCH ×2 (08:31→20:42)
[2020-10-19] MEDS: APIXABAN 5 MG TABLET PO SCH ×2 (08:31→20:46)
[2020-10-19] MEDS: METOPROLOL SUCC 25MG EXT REL TAB PO SCH (08:31)
[2020-10-19] MEDS: CHOLECALCIFEROL 1,000 UNITS 25 MCG TAB PO SCH (08:31)
[2020-10-19] MEDS: allopurinoL 100 MG TAB PO SCH (08:32)
[2020-10-19] MEDS: DOCUSATE SODIUM/SENNA 50/8.6MG TAB PO SCH (08:32)
[2020-10-19] MEDS: ROSUVASTATIN CALCIUM 20 MG TAB PO SCH (08:32)
[2020-10-19] MEDS: INSULIN DETEMIR FLEXPEN/FLEX TOUCH 100 UNITS/ML 3ML SQ SCH ×2 (08:33→20:49)
[2020-10-19] MEDS: POLYETHYLENE (MIRALAX) 17 GM PACK PO SCH (08:33)
[2020-10-19] MEDS: INSULIN ASPART 100 UNITS/ML 3 ML PEN SC SCH ×4 (08:33→20:48)
[2020-10-19 08:41] LABS: BUN Creatinine Ratio 25.3 (10-20); Calcium 8.9 mg/dl (8.5-10.1); Creatinine Clr Calc Pharmacy 42.4 ml/min; Est GFR (African American) 43.3; Est GFR (Non-African American) 37.4; Potassium 3.9 mmol/L (3.5-5.1)
--- NOTE | 2020-10-19 17:48 | XRay Report ---
SINGLE VIEW CHEST CLINICAL HISTORY: Congestive heart failure. FINDINGS: An AP, portable, upright chest radiograph is compared to study dated 10/14/2020. The examin ation is degraded by portable technique and patient rotation. The patient is status post midline ster notomy. The heart is enlarged noting atherosclerotic calcification of the thoracic aorta. There is pu lmonary vascular congestion with evidence of interstitial edema. Small pleural effusions are suspecte d. Atelectasis is noted at the lung bases. No pneumothorax is seen. The skeletal structures are osteo penic. The bony thorax is grossly intact. IMPRESSION: 1. Cardiomegaly with evidence of congestive failure and mild interstitial edema. This is similar to t 10/14/2020 examination. 2. Suspect small pleural effusions. ACT 112: Negative or not required by law. Electronically signed by: Albert Bonner M.D. 10/19/2020 5:47 PM
[2020-10-19] MEDS ORDERED: SPIRONOLACTONE 25 MG TAB PO ONE (18:28)
--- NOTE | 2020-10-19 20:28 | Hospitalist Progress Note ---
Date of Service October 19, 2020 Assessment & Plan (1) Acute hypoxemic respiratory failure: resolved, but now back on minimal amount of NC O2 likely combination of acute bronchitis and acute/chronic CHF COVID-19 PCR negative at admission [facility] panel which includes COVID-19 was also negative MRSA swab negative repeat cxr today - ongoing edema - see below (2) Acute on chronic diastolic (congestive) heart failure: Patient believes her dry weight is 90-100kg although she has not been below 100kg since [id number] she has had net neg 20 liters out since admission with ongoing decreasing weights and stable Creatinine will cont IV lasix cxr today with ongoing edema despite aggressive diuresis add back aldactone 25mg daily consider metazolone prior to lasix on daily basis while here repeat weight and BMP am (3) Chronic right-sided congestive heart failure: acute/chronic. see above in acute on chronic diastolic heart failure cont beta jody & IV diuretics. (4) Bronchitis: improved but still wheezing COVID-19 negative x 2 early this stay [employer] resp panel negative cont flutter valve, mucinex, diuresis, bronchodilators (5) Type 2 diabetes mellitus with kidney complication, with long-term current use of insulin: cont levemir 15 units BID along with novolog sliding scale control satisfactory (6) Dysphagia: 11-10 speech therapy saw and no concern for aspiration 11-12 GI consulted for sensation that food gets stuck, GI deemed too high risk for EGD cont "easy to chew" diet tolerating such (7) Paraplegia: acquired h/o lumbar back surgery and thoracic neuroendocrine tumor with resulting acq uired paraplegia. Continue supportive care suprapubic catheter for neurogenic bladder (8) Anemia: Hb stable low to mid 8's on her eliquis previous admission - heme+ stool, concern for GI bleeding repeat h/h in am for stability received IV venofer x 4 during prior stay (9) Hypertension: cont home meds hydralazine 25mg TID toprol xl 25mg daily controlled (10) Atrial fibrillation: rate controlled with toprol xl 11-11 restarted eliquis and H/H stable since ?accelerated junctional rhythm on tele? d/w cardiology today - does indeed have competing junctional rhythm along with a.fib (11) Chronic kidney disease, stage 3: baseline Cr about 1.4 stable daily BMP in face of diuresis (12) CAD (coronary artery disease): no ischemic sx's at this time cont BB cont statin (13) Indwelling Soto catheter present: suprapubic catheter due to chronic neurogenic bladder urology stated the catheter does not need to be exchanged at this time (14) Restless leg syndrome: cont ropinirole (15) Morbid obesity with BMI of 45.0-49.9, adult: BMI now 39 s/p diuresis (16) Complicated UTI (urinary tract infection): Related to chronic indwelling suprapubic catheter 11-6 urine Cx with > 100,000 CFU pansensitive e.coli completed 7+ days of IV antibiotic therapy resolved (17) DVT prophylaxis: eliquis BID cont PT/OT updated by phone 10/18/20 Admission and Anticipated Discharge Date Admission Date: October 07, 2020 Subjective when I came to her room today she was wearing oxygen. she had been sitting in the chair much of the day. got out of bed using lift. while getting in the bed from the chair she became quite dyspneic and staff placed the oxygen on. she continues with cough and wheeze along with dyspnea. abd swelling and leg swelling unchanged. eating ok. tele - rates low 60s - a.fib vs junctional. Review of Systems Constitutional: + fatigue; no fever, no chills and no anorexia Respiratory: + cough, + dyspnea on exertion and + wheezing; no hemoptysis and no sputum production Cardiovascular: + dyspnea at rest and + orthopnea; no chest pain Gastrointestinal: no abdominal pain, no nausea and no vomiting Physical Exam Constitutional: + morbidly obese; no acute distress, not ill appearing and no altered mental status Eyes: coughing; audible wheeze ENMT: external ear and nose normal, oropharynx normal Respiratory: no respiratory distress Auscultation: + crackles (right base) and + wheezes (B/l worse on right ) Cardiovascular: Rate/Rhythm: regular rate and + irregularly irregular Heart Sounds: normal S1, normal S2 and + murmur (2/6 RUSB systolic and LLSB) Vessels: + JVD (Worse today), posterior tibial pulses present and dorsalis pedis pulses present Extremities: + edema (2+ b/l) Gastrointestinal (Abdomen): normal bowel sounds, soft, nontender, no hepatosplenomegaly Percussion/Palpation: + hernia (reducible ) Psychiatric: Orientation: alert and oriented x 3 Results & Data Results & Data ([facility]) Vital Signs (Past 12 Hours) Vital Signs Temp Pulse Pulse Resp BP Pulse Ox 10/19/20 18:28 60 10/19/20 15:59 36.9 C 66 18 146/72 H 90 10/19/20 11:39 36.6 C 69 18 115/66 94 Laboratory Results Laboratory Results - last 24 hr 10/18/20 10/19/20 10/19/20 20:45 07:28 07:56 WBC 5.60 RBC 3.09 L Hgb 8.3 L Hct 28.6 L MCV 92.6 MCH 26.9 MCHC 29.0 L RDW Std Deviation 60.3 H RDW Coeff of Lelo 17.8 H Plt Count 229 MPV 9.0 Sodium Potassium Chloride Carbon Dioxide Anion Gap BUN Creatinine Est Cr Clr Drug Dosing Est GFR ( Amer) Est GFR (Non-Af Amer) BUN/Creatinine Ratio Glucose POC Glucose 142 H 96 Calcium 10/19/20 10/19/20 10/19/20 07:56 11:25 16:33 WBC RBC Hgb Hct MCV MCH MCHC RDW Std Deviation RDW Coeff of Lelo Plt Count MPV Sodium 139 Potassium 3.9 Chloride 102 Carbon Dioxide 33 H Anion Gap 3.0 BUN 35 H Creatinine 1.37 H Est Cr Clr Drug Dosing 42.4 Est GFR ( Amer) 43.3 Est GFR (Non-Af Amer) 37.4 BUN/Creatinine Ratio 25.3 H Glucose 85 POC Glucose 140 H 107 H Calcium 8.9 PG Care Time/CCT Total # of Minutes Spent Total Time Spent with Patient: Total time spent is greater than 50% in coordination of care (as documented) at patient's floor/unit and/or counseling patient: Coding Level of Care Code 76224 Subseq Hosp Care Lvl 2 Diagnoses Acute hypoxemic respiratory failure J96.01 Acute on chronic diastolic (congestive) heart failure I50.33 Chronic right-sided congestive heart failure I50.812 Bronchitis J40 Type 2 diabetes mellitus with kidney complication, with long-term current use of insulin E11.29; Z79.4 Dysphagia R13.14 Dysphagia type: pharyngoesophageal phase Paraplegia G82.20 Anemia D64.9 Anemia type: unspecified type Hypertension I10 Hypertension type: unspecified Atrial fibrillation I48.20 Atrial fibrillation type: unspecified chronic Chronic kidney disease, stage 3 N18.30 Chronic kidney disease stage 3 subtype: unspecified whether 3a or 3b CAD (coronary artery disease) I25.10 Associated angina: without angina Coronary Disease-Associated Artery/Lesion type: [place] artery [place] vs. transplanted heart: [place] heart Indwelling Soto catheter present Z96.0 Restless leg syndrome G25.81 Morbid obesity with BMI of 45.0-49.9, adult E66.01; Z68.42 Complicated UTI (urinary tract infection) N39.0 DVT prophylaxis Z29.9 (1) Chronic kidney disease, stage 3 Chronic kidney disease stage 3 subtype: unspecified whether 3a or 3b Qualified Code(s): N18.30 - Chronic kidney disease, stage 3 unspecified (2) CAD (coronary artery disease) Associated angina: without angina Coronary Disease-Associated Artery/Lesion type: [place] artery [place] vs. transplanted heart: [place] heart Qualified Code(s): I25.10 - Atherosclerotic heart disease of [place] coronary artery without angina pectoris (3) Anemia Anemia type: unspecified type Qualified Code(s): D64.9 - Anemia, unspecified (4) Atrial fibrillation Atrial fibrillation type: unspecified chronic Qualified Code(s): I48.20 - Chronic atrial fibrillation, unspecified (5) Dysphagia Dysphagia type: pharyngoesophageal phase Qualified Code(s): R13.14 - Dysphagia, pharyngoesophageal phase (6) Hypertension Hypertension type: unspecified Qualified Code(s): I10 - Essential (primary) hypertension
[2020-10-19] MEDS: AMITRIPTYLINE HCL 50 MG TAB PO SCH (20:42)
[2020-10-19] MEDS: BACLOFEN 10 MG TAB PO SCH (20:44)
[2020-10-20 07:16] LABS: BUN Creatinine Ratio 22.6 (10-20); Est GFR (African American) 41.5; Est GFR (Non-African American) 35.8
[2020-10-20] MEDS: INSULIN ASPART 100 UNITS/ML 3 ML PEN SC SCH ×4 (07:55→21:18)
[2020-10-20] MEDS: INSULIN DETEMIR FLEXPEN/FLEX TOUCH 100 UNITS/ML 3ML SQ SCH ×2 (07:58→21:18)
[2020-10-20] MEDS: METOPROLOL SUCC 25MG EXT REL TAB PO SCH (08:01)
[2020-10-20] MEDS: FUROSEMIDE 80 MG in SYRINGE 0 ML IV SCH ×2 (08:01→21:16)
[2020-10-20] MEDS: SPIRONOLACTONE 25 MG TAB PO SCH (08:01)
[2020-10-20] MEDS: CHOLECALCIFEROL 1,000 UNITS 25 MCG TAB PO SCH (08:02)
[2020-10-20] MEDS: allopurinoL 100 MG TAB PO SCH (08:03)
[2020-10-20] MEDS: DOCUSATE SODIUM/SENNA 50/8.6MG TAB PO SCH (08:03)
[2020-10-20] MEDS: PANTOprazole 40 MG TAB PO SCH ×2 (08:03→21:17)
[2020-10-20] MEDS: hydrALAZINE HCL 25 MG TAB PO SCH ×3 (08:03→21:17)
[2020-10-20] MEDS: APIXABAN 5 MG TABLET PO SCH ×2 (08:04→21:17)
[2020-10-20] MEDS: ROSUVASTATIN CALCIUM 20 MG TAB PO SCH (08:04)
[2020-10-20] MEDS: guaiFENesin 600 MG TABCR PO SCH ×2 (08:05→21:17)
[2020-10-20] MEDS: POTASSIUM CHLORIDE CRTAB 20 MEQ TABCR PO SCH ×3 (08:05→21:17)
[2020-10-20] MEDS: POLYETHYLENE (MIRALAX) 17 GM PACK PO SCH (08:07)
[2020-10-20] MEDS: FERROUS SULFATE 325 MG TAB PO SCH ×2 (08:07→21:16)
[2020-10-20] MEDS: MAGNESIUM CHLORIDE 64MG DELAYED REL TAB PO SCH ×3 (08:07→21:54)
--- NOTE | 2020-10-20 20:52 | Hospitalist Progress Note ---
Date of Service October 20, 2020 Assessment & Plan (1) Acute hypoxemic respiratory failure: resolved combination of acute bronchitis and acute/chronic CHF COVID-19 PCR negative at admission [facility] panel which includes COVID-19 was also negative MRSA swab negative most recent cxr with ongoing pulm edema (2) Acute on chronic diastolic (congestive) heart failure: Ongoing, but improving. Patient believes her dry weight is 90-100kg although she has not been below 100kg since [id number] she has had net neg 20 liters out since admission with ongoing decreasing weights and stable Creatinine will cont IV lasix cont aldactone repeat weight and BMP am (3) Chronic right-sided congestive heart failure: acute/chronic. see above in acute on chronic diastolic heart failure cont beta jody & IV diuretics. (4) Bronchitis: improved COVID-19 negative x 2 early this stay [employer] resp panel negative cont flutter valve, mucinex, diuresis, bronchodilators (5) Type 2 diabetes mellitus with kidney complication, with long-term current use of insulin: cont levemir 15 units BID along with novolog sliding scale controlled (6) Dysphagia: speech therapy consult earlier in admission -- no concern for aspiration GI consulted earlier this admission - EGD deferred dysmotility suspected cont "easy to chew" diet no issues (7) Paraplegia: acquired h/o lumbar back surgery and thoracic neuroendocrine tumor with resulting acquired paraplegia. suprapubic catheter for neurogenic bladder (8) Anemia: Hb stable low to mid 8's on her eliquis previous admission - heme+ stool, concern for GI bleeding received IV venofer x 4 during prior stay (9) Hypertension: cont home meds hydralazine 25mg TID toprol xl 25mg daily controlled (10) Atrial fibrillation: rate controlled with toprol xl 11-11 restarted eliquis and H/H stable since ?accelerated junctional rhythm on tele? d/w cardiology yesterday - does indeed have competing junctional rhythm along with a.fib; nothing to do at this time (11) Chronic kidney disease, stage 3: baseline Cr about 1.4 stable daily BMP in face of diuresis (12) CAD (coronary artery disease): no ischemic sx's at this time cont BB cont statin (13) Indwelling Soto catheter present: suprapubic catheter due to chronic neurogenic bladder urology stated the catheter does not need to be exchanged at this time (14) Restless leg syndrome: cont ropinirole (15) Morbid obesity with BMI of 45.0-49.9, adult: BMI now <40 s/p diuresis (16) Complicated UTI (urinary tract infection): Related to chronic indwelling suprapubic catheter 11-6 urine Cx with > 100,000 CFU pansensitive e.coli completed 7+ days of IV antibiotic therapy resolved (17) DVT prophylaxis: eliquis BID cont PT/OT updated by phone 10/18/20 and left message for him 10/20 Admission and Anticipated Discharge Date Admission Date: October 07, 2020 Subjective tele - rates 60s; afib vs junctional (as previous). no new complaints. feels better today. minimal cough. mild DIALLO. eating well. no pain any location. Review of Systems Constitutional: no fever Respiratory: + cough and + wheezing; no sputum production Cardiovascular: no chest pain Gastrointestinal: no abdominal pain Physical Exam Constitutional: + morbidly obese; no acute distress, not ill appearing and no altered mental status ENMT: external ear and nose normal, oropharynx normal Respiratory: no respiratory distress Auscultation: + crackles (right base) and + wheezes (B/l; loudest right base - similar to yesterday) Cardiovascular: Rate/Rhythm: regular rate and + irregularly irregular Heart Sounds: normal S1, normal S2 and + murmur (2/6 RUSB systolic and LLSB) Vessels: + JVD, posterior tibial pulses present and dorsalis pedis pulses present Extremities: + edema (2+ b/l) Gastrointestinal (Abdomen): normal bowel sounds, soft, nontender, no hepatosplenomegaly Percussion/Palpation: + hernia (reducible ) Psychiatric: Orientation: alert and oriented x 3 Results & Data Results & Data ([facility]) Vital Signs (Past 12 Hours) Vital Signs Temp Pulse Resp BP BP Pulse Ox 10/20/20 19:17 36.3 C L 69 16 127/53 L 92 10/20/20 15:09 36.7 C 69 20 140/72 96 10/20/20 11:23 36.7 C 74 19 123/61 91 Laboratory Results Laboratory Results - last 24 hr 10/20/20 10/20/20 10/20/20 06:33 06:33 06:36 Hgb 8.2 L Sodium 137 Potassium 4.0 Chloride 100 Carbon Dioxide 32 Anion Gap 5.0 BUN 32 H Creatinine 1.42 H Est Cr Clr Drug Dosing 41.0 Est GFR ( Amer) 41.5 Est GFR (Non-Af Amer) 35.8 BUN/Creatinine Ratio 22.6 H Glucose 92 POC Glucose Calcium 9.0 Ammonia 29.0 10/20/20 10/20/20 10/20/20 07:24 11:33 16:19 Hgb Sodium Potassium Chloride Carbon Dioxide Anion Gap BUN Creatinine Est Cr Clr Drug Dosing Est GFR ( Amer) Est GFR (Non-Af Amer) BUN/Creatinine Ratio Glucose POC Glucose 102 H 118 H 94 Calcium Ammonia 10/20/20 20:50 Hgb Sodium Potassium Chloride Carbon Dioxide Anion Gap BUN Creatinine Est Cr Clr Drug Dosing Est GFR ( Amer) Est GFR (Non-Af Amer) BUN/Creatinine Ratio Glucose POC Glucose Pending Calcium Ammonia PG Care Time/CCT Total # of Minutes Spent Total Time Spent with Patient: Total time spent is greater than 50% in coordination of care (as documented) at patient's floor/unit and/or counseling patient: Coding Level of Care Code 24915 Subseq Hosp Care Lvl 2 Diagnoses Acute hypoxemic respiratory failure J96.01 Acute on chronic diastolic (congestive) heart failure I50.33 Chronic right-sided congestive heart failure I50.812 Bronchitis J40 Type 2 diabetes mellitus with kidney complication, with long-term current use of insulin E11.29; Z79.4 Dysphagia R13.14 Dysphagia type: pharyngoesophageal phase Paraplegia G82.20 Anemia D64.9 Anemia type: unspecified type Hypertension I10 Hypertension type: unspecified Atrial fibrillation I48.20 Atrial fibrillation type: unspecified chronic Chronic kidney disease, stage 3 N18.30 Chronic kidney disease stage 3 subtype: unspecified whether 3a or 3b CAD (coronary artery disease) I25.10 Associated angina: without angina Coronary Disease-Associated Artery/Lesion type: [place] artery [place] vs. transplanted heart: [place] heart Indwelling Soto catheter present Z96.0 Restless leg syndrome G25.81 Morbid obesity with BMI of 45.0-49.9, adult E66.01; Z68.42 Complicated UTI (urinary tract infection) N39.0 DVT prophylaxis Z29.9 (1) Chronic kidney disease, stage 3 Chronic kidney disease stage 3 subtype: unspecified whether 3a or 3b Qualified Code(s): N18.30 - Chronic kidney disease, stage 3 unspecified (2) CAD (coronary artery disease) Associated angina: without angina Coronary Disease-Associated Artery/Lesion type: [place] artery [place] vs. transplanted heart: [place] heart Qualified Code(s): I25.10 - Atherosclerotic heart disease of [place] coronary artery without angina pectoris (3) Anemia Anemia type: unspecified type Qualified Code(s): D64.9 - Anemia, unspecified (4) Atrial fibrillation Atrial fibrillation type: unspecified chronic Qualified Code(s): I48.20 - Chronic atrial fibrillation, unspecified (5) Dysphagia Dysphagia type: pharyngoesophageal phase Qualified Code(s): R13.14 - Dysphagia, pharyngoesophageal phase (6) Hypertension Hypertension type: unspecified Qualified Code(s): I10 - Essential (primary) hypertension
[2020-10-20] MEDS: AMITRIPTYLINE HCL 50 MG TAB PO SCH (21:17)
[2020-10-20] MEDS: BACLOFEN 10 MG TAB PO SCH (21:21)
[2020-10-21] MEDS: FUROSEMIDE 80 MG in SYRINGE 0 ML IV SCH ×2 (07:40→20:24)
[2020-10-21] MEDS: MAGNESIUM CHLORIDE 64MG DELAYED REL TAB PO SCH ×3 (07:40→20:28)
[2020-10-21] MEDS: PANTOprazole 40 MG TAB PO SCH ×2 (07:41→20:27)
[2020-10-21] MEDS: DOCUSATE SODIUM/SENNA 50/8.6MG TAB PO SCH (07:41)
[2020-10-21] MEDS: allopurinoL 100 MG TAB PO SCH (07:41)
[2020-10-21] MEDS: ROSUVASTATIN CALCIUM 20 MG TAB PO SCH (07:41)
[2020-10-21] MEDS: SPIRONOLACTONE 25 MG TAB PO SCH (07:42)
[2020-10-21] MEDS: guaiFENesin 600 MG TABCR PO SCH ×2 (07:42→20:26)
[2020-10-21] MEDS: hydrALAZINE HCL 25 MG TAB PO SCH ×3 (07:42→20:28)
[2020-10-21] MEDS: METOPROLOL SUCC 25MG EXT REL TAB PO SCH (07:42)
[2020-10-21] MEDS: APIXABAN 5 MG TABLET PO SCH ×2 (07:43→20:26)
[2020-10-21] MEDS: FERROUS SULFATE 325 MG TAB PO SCH ×2 (07:43→20:26)
[2020-10-21] MEDS: POTASSIUM CHLORIDE CRTAB 20 MEQ TABCR PO SCH ×3 (07:43→20:28)
[2020-10-21] MEDS: CHOLECALCIFEROL 1,000 UNITS 25 MCG TAB PO SCH (07:44)
[2020-10-21 07:46] LABS: BUN Creatinine Ratio 21.7 (10-20); Creatinine Clr Calc Pharmacy 42.1 ml/min; Est GFR (African American) 43.7; Est GFR (Non-African American) 37.7; Potassium 4.1 mmol/L (3.5-5.1)
[2020-10-21] MEDS: INSULIN ASPART 100 UNITS/ML 3 ML PEN SC SCH ×4 (07:50→20:31)
[2020-10-21] MEDS: POLYETHYLENE (MIRALAX) 17 GM PACK PO SCH (07:52)
[2020-10-21] MEDS: INSULIN DETEMIR FLEXPEN/FLEX TOUCH 100 UNITS/ML 3ML SQ SCH ×2 (08:01→20:32)
[2020-10-21] MEDS: ACETAMINOPHEN 325 MG TAB PO PRN (09:01)
[2020-10-21] MEDS: BACLOFEN 10 MG TAB PO SCH (20:24)
[2020-10-21] MEDS: AMITRIPTYLINE HCL 50 MG TAB PO SCH (20:26)
--- NOTE | 2020-10-21 21:13 | Hospitalist Progress Note ---
Date of Service October 21, 2020 Assessment & Plan (1) Acute hypoxemic respiratory failure: resolved combination of acute bronchitis and acute/chronic CHF COVID-19 PCR negative at admission [facility] panel which includes COVID-19 was also negative MRSA swab negative most recent cxr with ongoing pulm edema (2) Acute on chronic diastolic (congestive) heart failure: Ongoing, but improving and suspect we are approaching euvolemia. Patient believes her dry weight is 90-100kg although she has not been below 100kg since [id number] she has had net neg 20 liters out since admission with ongoing decreasing weights and stable Creatinine cont IV lasix BID cont aldactone bmp daily in the AM (3) Chronic right-sided congestive heart failure: acute/chronic. see above in acute on chronic diastolic heart failure cont beta jody & IV diuretics. 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 suprapubic catheter for neurogenic bladder (8) Anemia: Hb stable low to mid 8's on her eliquis previous admission - heme+ stool, concern for GI bleeding received IV venofer x 4 during prior stay recheck Hb in am (9) Hypertension: controlled cont hydralazine 25mg TID cont toprol xl 25mg daily (10) Atrial fibrillation: rate controlled with toprol xl 10-12-20 restarted eliquis and H/H stable since ?accelerated junctional rhythm on tele? d/w cardiology this week - does indeed have competing junctional rhythm along with a.fib; nothing to do at this time (11) Chronic kidney disease, stage 3: baseline Cr about 1.4 stable daily BMP in face of diuresis (12) CAD (coronary artery disease): stable cont BB cont statin (13) Indwelling Soto catheter present: suprapubic catheter due to chronic neurogenic bladder urology stated earlier this admission the catheter does not need to be exchanged at this time (14) Restless leg syndrome: cont ropinirole (15) Morbid obesity with BMI of 45.0-49.9, adult: BMI now <40 s/p diuresis (16) Complicated UTI (urinary tract infection): Related to chronic indwelling suprapubic catheter 10-07-20 urine Cx with > 100,000 CFU pansensitive e.coli completed 7+ days of IV antibiotic therapy resolved (17) DVT prophylaxis: eliquis BID cont PT/OT updated by phone 10/18/20 and left message for him 10/20 also updated him by phone this evening home tomorrow?? Admission and Anticipated Discharge Date Admission Date: October 07, 2020 Subjective patient feeling well. scant cough. scant wheeze. no dyspnea at rest. eating well. tele - rates 60s. she states "Im getting bored." Review of Systems Constitutional: no fever, no chills, no fatigue and no anorexia Respiratory: no dyspnea Cardiovascular: no chest pain Gastrointestinal: no abdominal pain, no nausea and no vomiting Physical Exam Constitutional: + morbidly obese; no acute distress, not ill appearing and no altered mental status ENMT: external ear and nose normal, oropharynx normal Respiratory: no respiratory distress Auscultation: + crackles (scant L base only) and + wheezes (right base only today) Cardiovascular: Rate/Rhythm: regular rate and + irregularly irregular Heart Sounds: normal S1, normal S2 and + murmur (2/6 RUSB systolic and LLSB) Vessels: + JVD, posterior tibial pulses present and dorsalis pedis pulses present Extremities: + edema (1+ b/l) Gastrointestinal (Abdomen): normal bowel sounds, soft, nontender, no hepatosplenomegaly Psychiatric: Orientation: alert and oriented x 3 Results & Data Results & Data ([facility]) Vital Signs (Past 12 Hours) Vital Signs Temp Pulse Resp BP BP Pulse Ox 10/21/20 19:35 36.6 C 75 17 130/84 92 10/21/20 15:40 36.8 C 61 19 112/54 L 92 10/21/20 11:07 36.7 C 91 H 19 113/58 L 91 Laboratory Results Laboratory Results - last 24 hr 10/21/20 10/21/20 10/21/20 06:37 07:25 11:29 Sodium 136 Potassium 4.1 Chloride 100 Carbon Dioxide 32 Anion Gap 5.0 BUN 30 H Creatinine 1.36 H Est Cr Clr Drug Dosing 42.1 Est GFR ( Amer) 43.7 Est GFR (Non-Af Amer) 37.7 BUN/Creatinine Ratio 21.7 H Glucose 97 POC Glucose 114 H 113 H Calcium 9.0 10/21/20 10/21/20 16:21 20:28 Sodium Potassium Chloride Carbon Dioxide Anion Gap BUN Creatinine Est Cr Clr Drug Dosing Est GFR ( Amer) Est GFR (Non-Af Amer) BUN/Creatinine Ratio Glucose POC Glucose 103 H 159 H Calcium PG Care Time/CCT Total # of Minutes Spent Total Time Spent with Patient: Total time spent is greater than 50% in coordination of care (as documented) at patient's floor/unit and/or counseling patient: Coding Level of Care Code 50495 Subseq Hosp Care Lvl 2 Diagnoses Acute hypoxemic respiratory failure J96.01 Acute on chronic diastolic (congestive) heart failure I50.33 Chronic right-sided congestive heart failure I50.812 Bronchitis J40 Type 2 diabetes mellitus with kidney complication, with long-term current use of insulin E11.29; Z79.4 Dysphagia R13.14 Dysphagia type: pharyngoesophageal phase Paraplegia G82.20 Anemia D64.9 Anemia type: unspecified type Hypertension I10 Hypertension type: unspecified Atrial fibrillation I48.20 Atrial fibrillation type: unspecified chronic Chronic kidney disease, stage 3 N18.30 Chronic kidney disease stage 3 subtype: unspecified whether 3a or 3b CAD (coronary artery disease) I25.10 Associated angina: without angina Coronary Disease-Associated Artery/Lesion type: [place] artery [place] vs. transplanted heart: [place] heart Indwelling Soto catheter present Z96.0 Restless leg syndrome G25.81 Morbid obesity with BMI of 45.0-49.9, adult E66.01; Z68.42 Complicated UTI (urinary tract infection) N39.0 DVT prophylaxis Z29.9 (1) Chronic kidney disease, stage 3 Chronic kidney disease stage 3 subtype: unspecified whether 3a or 3b Qualified Code(s): N18.30 - Chronic kidney disease, stage 3 unspecified (2) CAD (coronary artery disease) Associated angina: without angina Coronary Disease-Associated Artery/Lesion type: [place] artery [place] vs. transplanted heart: [place] heart Qualified Code(s): I25.10 - Atherosclerotic heart disease of [place] coronary artery without angina pectoris (3) Anemia Anemia type: unspecified type Qualified Code(s): D64.9 - Anemia, unspecified (4) Atrial fibrillation Atrial fibrillation type: unspecified chronic Qualified Code(s): I48.20 - Chronic atrial fibrillation, unspecified (5) Dysphagia Dysphagia type: pharyngoesophageal phase Qualified Code(s): R13.14 - Dysphagia, pharyngoesophageal phase (6) Hypertension Hypertension type: unspecified Qualified Code(s): I10 - Essential (primary) hypertension
[2020-10-22] MEDS: INSULIN ASPART 100 UNITS/ML 3 ML PEN SC SCH ×4 (07:40→20:33)
[2020-10-22 08:31] LABS: BUN Creatinine Ratio 20.1 (10-20); Calcium 9.3 mg/dl (8.5-10.1); Est GFR (African American) 39.5; Potassium 3.9 mmol/L (3.5-5.1)
[2020-10-22] MEDS: FUROSEMIDE 80 MG in SYRINGE 0 ML IV SCH ×2 (08:42→20:22)
[2020-10-22] MEDS: SPIRONOLACTONE 25 MG TAB PO SCH (08:43)
[2020-10-22] MEDS: CHOLECALCIFEROL 1,000 UNITS 25 MCG TAB PO SCH (08:43)
[2020-10-22] MEDS: guaiFENesin 600 MG TABCR PO SCH ×2 (08:44→20:22)
[2020-10-22] MEDS: APIXABAN 5 MG TABLET PO SCH ×2 (08:50→20:22)
[2020-10-22] MEDS: DOCUSATE SODIUM/SENNA 50/8.6MG TAB PO SCH (08:50)
[2020-10-22] MEDS: PANTOprazole 40 MG TAB PO SCH ×2 (08:50→20:23)
[2020-10-22] MEDS: MAGNESIUM CHLORIDE 64MG DELAYED REL TAB PO SCH ×3 (08:51→20:23)
[2020-10-22] MEDS: hydrALAZINE HCL 25 MG TAB PO SCH ×3 (08:51→20:24)
[2020-10-22] MEDS: POTASSIUM CHLORIDE CRTAB 20 MEQ TABCR PO SCH ×3 (08:51→20:22)
[2020-10-22] MEDS: ROSUVASTATIN CALCIUM 20 MG TAB PO SCH (08:51)
[2020-10-22] MEDS: allopurinoL 100 MG TAB PO SCH (08:52)
[2020-10-22] MEDS: METOPROLOL SUCC 25MG EXT REL TAB PO SCH (08:52)
[2020-10-22] MEDS: FERROUS SULFATE 325 MG TAB PO SCH ×2 (08:52→20:25)
[2020-10-22] MEDS: POLYETHYLENE (MIRALAX) 17 GM PACK PO SCH (08:53)
[2020-10-22] MEDS: INSULIN DETEMIR FLEXPEN/FLEX TOUCH 100 UNITS/ML 3ML SQ SCH ×2 (08:54→20:33)
[2020-10-22] MEDS: ACETAMINOPHEN 325 MG TAB PO PRN (11:21)
[2020-10-22] MEDS: AMITRIPTYLINE HCL 50 MG TAB PO SCH (20:22)
[2020-10-22] MEDS: BACLOFEN 10 MG TAB PO SCH (20:23)
--- NOTE | 2020-10-22 20:58 | Hospitalist Progress Note ---
Date of Service October 22, 2020 Assessment & Plan (1) Acute hypoxemic respiratory failure: resolved combination of acute bronchitis and acute/chronic CHF COVID-19 PCR negative at admission [facility] panel which includes COVID-19 was also negative MRSA swab negative most recent cxr with ongoing pulm edema but this is markedly improved clinically (2) Acute on chronic diastolic (congestive) heart failure: Suspect we are approaching euvolemia. Weight now 100 kg Patient believes her dry weight is 90-100kg although she has not been below 100kg since [id number] she has had net neg 20 liters out since admission with ongoing decreasing weights and stable Creatinine cont IV lasix BID cont aldactone bmp daily in the AM Cr slightly higher than previous today; if it continues to rise then stop IV lasix tomorrow and transition to PO LASIX 80mg BID (3) Chronic right-sided congestive heart failure: acute/chronic. see above in acute on chronic diastolic heart failure cont beta jody & IV diuretics. approaching euvolemia. looking great today. (4) Bronchitis: improved/resolving COVID-19 negative x 2 early this stay [facility] resp panel negative cont flutter valve, mucinex, diuresis, bronchodilators (5) Type 2 diabetes mellitus with kidney complication, with long-term current use of insulin: cont levemir 15 units BID along with novolog sliding scale controlled nicely (6) Dysphagia: speech therapy consult earlier in admission -- no concern for aspiration GI consulted earlier this admission - EGD deferred dysmotility suspected cont "easy to chew" diet no issues (7) Paraplegia: acquired h/o lumbar back surgery and thoracic neuroendocrine tumor with resulting acquired paraplegia. suprapubic catheter for neurogenic bladder (8) Anemia: Hb stable low to mid 8's on her eliquis previous admission - heme+ stool, concern for GI bleeding received IV venofer x 4 during prior stay Hb stable again (9) Hypertension: controlled cont hydralazine 25mg TID cont toprol xl 25mg daily (10) Atrial fibrillation: rate controlled with toprol xl 10-12-20 restarted eliquis and H/H stable since ?accelerated junctional rhythm on tele? d/w cardiology this week - does indeed have competing junctional rhythm along with a.fib; nothing to do at this time (11) Chronic kidney disease, stage 3: baseline Cr about 1.4 starting to climb today suspect we are approaching euvolemia (12) CAD (coronary artery disease): stable cont BB cont statin (13) Indwelling Soto catheter present: suprapubic catheter due to chronic neurogenic bladder urology stated earlier this admission the catheter does not need to be exchanged at this time (14) Restless leg syndrome: cont ropinirole (15) Morbid obesity with BMI of 45.0-49.9, adult: BMI now <40 s/p diuresis (16) Complicated UTI (urinary tract infection): Related to chronic indwelling suprapubic catheter 10-07-20 urine Cx with > 100,000 CFU pansensitive e.coli completed 7+ days of IV antibiotic therapy resolved (17) DVT prophylaxis: eliquis BID cont PT/OT updated by phone 10/18/20 and left message for him 10/20 also updated him by phone 10/21 and 10/22 home tomorrow hopefully DISCHARGE DIURETIC REGIMEN -- 80mg lasix BID; aldactone 25mg daily. ONCOMING MD -- PLEASE ENSURE THAT FAMILY HAS THROWN OUT SALT TABLETS THAT WERE IN PILL BOX NEEDS F/U WITH VIOLETTA ERNESTO IN CHF CLINIC THIS WEEK Admission and Anticipated Discharge Date Admission Date: October 07, 2020 Subjective patient is well. eating good. no dyspnea. scant cough/wheeze - marked improvement from earlier this admission. tele - a.fib, rates in 60s, with competing junctional at times - chronic. Review of Systems Constitutional: no fever, no chills, no fatigue and no anorexia Respiratory: + cough and + wheezing; no dyspnea Cardiovascular: no chest pain and no orthopnea Physical Exam Constitutional: + morbidly obese; no acute distress, not ill appearing and no altered mental status ENMT: external ear and nose normal, oropharynx normal Respiratory: no respiratory distress Auscultation: + crackles (scant bases b/l ) and + wheezes (right base only ; much improved) Cardiovascular: Rate/Rhythm: regular rate and + irregularly irregular Heart Sounds: normal S1, normal S2 and + murmur (2/6 RUSB systolic and LLSB) Vessels: + JVD, posterior tibial pulses present and dorsalis pedis pulses present Extremities: + edema (Trace b/l) Gastrointestinal (Abdomen): normal bowel sounds, soft, nontender, no hepatosplenomegaly Psychiatric: Orientation: alert and oriented x 3 Results & Data Results & Data ([facility]) Vital Signs (Past 12 Hours) Vital Signs Temp Pulse Pulse Resp BP Pulse Ox 10/22/20 19:00 36.4 C L 68 21 123/75 90 10/22/20 15:19 36.3 C L 58 L 21 111/54 L 90 10/22/20 14:30 56 L 10/22/20 11:51 36.4 C L 71 18 104/44 L 91 Laboratory Results Laboratory Results - last 24 hr 10/22/20 10/22/20 10/22/20 07:31 07:31 07:32 Hgb 8.3 L Sodium 136 Potassium 3.9 Chloride 99 Carbon Dioxide 32 Anion Gap 5.0 BUN 30 H Creatinine 1.48 H Est Cr Clr Drug Dosing 38.0 Est GFR ( Amer) 39.5 Est GFR (Non-Af Amer) 34.0 BUN/Creatinine Ratio 20.1 H Glucose 84 POC Glucose 92 Calcium 9.3 10/22/20 10/22/20 10/22/20 11:13 16:16 20:25 Hgb Sodium Potassium Chloride Carbon Dioxide Anion Gap BUN Creatinine Est Cr Clr Drug Dosing Est GFR ( Amer) Est GFR (Non-Af Amer) BUN/Creatinine Ratio Glucose POC Glucose 142 H 118 H 139 H Calcium PG Care Time/CCT Total # of Minutes Spent Total Time Spent with Patient: Total time spent is greater than 50% in coordination of care (as documented) at patient's floor/unit and/or counseling patient: Coding Level of Care Code 27863 Subseq Hosp Care Lvl 2 Diagnoses Acute hypoxemic respiratory failure J96.01 Acute on chronic diastolic (congestive) heart failure I50.33 Chronic right-sided congestive heart failure I50.812 Bronchitis J40 Type 2 diabetes mellitus with kidney complication, with long-term current use of insulin E11.29; Z79.4 Dysphagia R13.14 Dysphagia type: pharyngoesophageal phase Paraplegia G82.20 Anemia D64.9 Anemia type: unspecified type Hypertension I10 Hypertension type: unspecified Atrial fibrillation I48.20 Atrial fibrillation type: unspecified chronic Chronic kidney disease, stage 3 N18.30 Chronic kidney disease stage 3 subtype: unspecified whether 3a or 3b CAD (coronary artery disease) I25.10 Associated angina: without angina Coronary Disease-Associated Artery/Lesion type: [place] artery [place] vs. transplanted heart: [place] heart Indwelling Soto catheter present Z96.0 Restless leg syndrome G25.81 Morbid obesity with BMI of 45.0-49.9, adult E66.01; Z68.42 Complicated UTI (urinary tract infection) N39.0 DVT prophylaxis Z29.9 (1) Chronic kidney disease, stage 3 Chronic kidney disease stage 3 subtype: unspecified whether 3a or 3b Qualified Code(s): N18.30 - Chronic kidney disease, stage 3 unspecified (2) CAD (coronary artery disease) Associated angina: without angina Coronary Disease-Associated Artery/Lesion type: [place] artery [place] vs. transplanted heart: [place] heart Qualified Code(s): I25.10 - Atherosclerotic heart disease of [place] coronary artery without angina pectoris (3) Anemia Anemia type: unspecified type Qualified Code(s): D64.9 - Anemia, unspecified (4) Atrial fibrillation Atrial fibrillation type: unspecified chronic Qualified Code(s): I48.20 - Chronic atrial fibrillation, unspecified (5) Dysphagia Dysphagia type: pharyngoesophageal phase Qualified Code(s): R13.14 - Dysphagia, pharyngoesophageal phase (6) Hypertension Hypertension type: unspecified Qualified Code(s): I10 - Essential (primary) hypertension
[2020-10-23] MEDS ORDERED: guaiFENesin 600 MG TABCR PO SCH
[2020-10-23 06:45] LABS: BUN Creatinine Ratio 19.2 (10-20); Creatinine Clr Calc Pharmacy 36.5 ml/min; Est GFR (African American) 37.9; Est GFR (Non-African American) 32.7; Magnesium 2.6 mg/dl (1.8-2.4); Potassium 4.1 mmol/L (3.5-5.1)
[2020-10-23] MEDS: allopurinoL 100 MG TAB PO SCH (08:00)
[2020-10-23] MEDS: DOCUSATE SODIUM/SENNA 50/8.6MG TAB PO SCH (08:00)
[2020-10-23] MEDS: POTASSIUM CHLORIDE CRTAB 20 MEQ TABCR PO SCH (08:00)
[2020-10-23] MEDS: CHOLECALCIFEROL 1,000 UNITS 25 MCG TAB PO SCH (08:00)
[2020-10-23] MEDS: MAGNESIUM CHLORIDE 64MG DELAYED REL TAB PO SCH (08:00)
[2020-10-23] MEDS: ROSUVASTATIN CALCIUM 20 MG TAB PO SCH (08:01)
[2020-10-23] MEDS: SPIRONOLACTONE 25 MG TAB PO SCH (08:01)
[2020-10-23] MEDS: APIXABAN 5 MG TABLET PO SCH (08:01)
[2020-10-23] MEDS: hydrALAZINE HCL 25 MG TAB PO SCH (08:01)
[2020-10-23] MEDS: PANTOprazole 40 MG TAB PO SCH (08:01)
[2020-10-23] MEDS: METOPROLOL SUCC 25MG EXT REL TAB PO SCH (08:01)
[2020-10-23] MEDS: FERROUS SULFATE 325 MG TAB PO SCH (08:01)
[2020-10-23] MEDS: guaiFENesin 600 MG TABCR PO SCH (08:01)
[2020-10-23] MEDS: FUROSEMIDE 80 MG in SYRINGE 0 ML IV SCH (08:02)
[2020-10-23] MEDS: INSULIN DETEMIR FLEXPEN/FLEX TOUCH 100 UNITS/ML 3ML SQ SCH (08:02)
[2020-10-23] MEDS: POLYETHYLENE (MIRALAX) 17 GM PACK PO SCH (08:02)
[2020-10-23] MEDS: INSULIN ASPART 100 UNITS/ML 3 ML PEN SC SCH ×2 (08:03→12:14)
[2020-10-23] MEDS: ACETAMINOPHEN 325 MG TAB PO PRN (10:12)
--- NOTE | 2020-10-23 10:46 | Discharge Summary ---
Date of Service October 23, 2020 Admission HPI Per Admitting Provider The patient is a 75-year-old female with a past medical history including pulmonary hypertension, hypertension, obesity, CAD, atrial fibrillation, tricuspid regurgitation, right ventricular dysfunction, anemia, neuroendocrine tumor, E. 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 She presents with symptoms as noted above. Work-up in the emergency department included chest x-ray which showed pulmonary edema and right lower lobe infiltrate. Pulse ox was 80% on room air which increased to the mid 90s on 2 L nasal cannula. She was COVID-19 negative while in the ED tonight. Principal Diagnosis Pt feels she is doing quite well today. She has had no SOB this morning. Her LE swelling is much improved over admission. Still with slight swelling, but minimal. Tolerating PO without issue. Pt denies fever, chest pain, abd pain, n/v/c/d, LE pain. Discharge Exam Constitutional WD/WN, vitals as above Eyes normal visual colin by confrontation and + anicteric sclerae Neck normal visual inspection and trachea midline Respiratory normal respiratory effort, lungs clear to auscultation Auscultation: no crackles and no wheezes Cardiovascular Rate/Rhythm: regular rate and regular rhythm Extremities: + edema (b/l trace pitting) Gastrointestinal (Abdomen) Inspection/Auscultation: abdomen not distended Percussion/Palpation: abdomen soft; abdomen nontender Musculoskeletal Head/Neck/Chest: normocephalic and head atraumatic Skin no rashes, warm and dry Neurologic awake; not confused Speech / Cognition: normal speech Psychiatric A+Ox3, euthymic affect Discharge Data Allergies Allergy/AdvReac Type Severity Reaction Status Date / Time metoclopramide [From Reglan] Allergy Mild "went Verified 10/07/20 11:27 crazy" NSAIDS (Non-Steroidal Allergy Unknown UNK? Verified 10/07/20 11:27 Anti-Inflamma DENIES SOB. capsaicin AdvReac Severe SHORTNESS Verified 10/07/20 11:27 OF BREATH diclofenac AdvReac Severe SHORTNESS Verified 10/07/20 11:27 OF BREATH D[place] AdvReac Severe SHORTNESS Verified 07/24/18 10:57 OF BREATH Consultations 10/07/20 20:39 ED Decision to Admit Stat 10/08/20 00:46 Consult Case Management - Discharge Planning Routine 10/13/20 11:46 Consult Gastroenterology Routine Hospital Course (1) Acute hypoxemic respiratory failure: resolved combination of acute bronchitis and acute/chronic CHF COVID-19 PCR negative at admission [employer] panel which includes COVID-19 was also negative MRSA swab negative most recent cxr with ongoing pulm edema but this is markedly improved clinically (2) Acute on chronic diastolic (congestive) heart failure: Suspect we are approaching euvolemia. Weight now 100 kg Patient believes her dry weight is 90-100kg although she has not been below 100kg since [id number] she has had net neg 20 liters out since admission with ongoing decreasing weights and stable Creatinine Was tx with lasix 80mg IV BID, will d/c home with 80mg PO BID and close f/u with CHF clinic Started on aldactone this admission, will continue (3) Chronic right-sided congestive heart failure: acute/chronic. see above in acute on chronic diastolic heart failure cont beta jody diuretics. Trace edema and clear lungs on d/c (4) Bronchitis: improved/resolving COVID-19 negative x 2 early this stay [employer] resp panel negative cont flutter valve, mucinex, diuresis, bronchodilators (5) Type 2 diabetes mellitus with kidney complication, with long-term current use of insulin: cont levemir 15 units BID along with novolog sliding scale controlled nicely (6) Dysphagia: speech therapy consult earlier in admission -- no concern for aspiration GI consulted earlier this admission - EGD deferred dysmotility suspected cont "easy to chew" diet no issues (7) Paraplegia: acquired h/o lumbar back surgery and thoracic neuroendocrine tumor with resulting acquired paraplegia. suprapubic catheter for neurogenic bladder (8) Anemia: Hb stable low to mid 8's on her eliquis previous admission - heme+ stool, concern for GI bleeding received IV venofer x 4 during prior stay Hb stable again (9) Hypertension: controlled cont hydralazine 25mg TID cont toprol xl 25mg daily (10) Atrial fibrillation: rate controlled with toprol xl 10-12-20 restarted eliquis and H/H stable since ?accelerated junctional rhythm on tele? d/w cardiology this week - does indeed have competing junctional rhythm along with a.fib; nothing to do at this time (11) Chronic kidney disease, stage 3: baseline Cr about 1.4 Cr 1.5 on d/c (12) CAD (coronary artery disease): stable cont BB cont statin (13) Indwelling Soto catheter present: suprapubic catheter due to chronic neurogenic bladder urology stated earlier this admission the catheter does not need to be exchanged at this time (14) Restless leg syndrome: cont ropinirole (15) Morbid obesity with BMI of 45.0-49.9, adult: BMI now <40 s/p diuresis (16) Complicated UTI (urinary tract infection): Related to chronic indwelling suprapubic catheter 10-07-20 urine Cx with > 100,000 CFU pansensitive e.coli completed 7+ days of IV antibiotic therapy resolved (17) DVT prophylaxis: eliquis BID cont PT/OT DISCHARGE DIURETIC REGIMEN -- 80mg lasix BID; aldactone 25mg daily. Pt to d/c home salt tablets, both prior physician and myself discussed this with her and she agrees Total Time Total Time Spent Total Time Spent (In Minutes): >30 Total Time Includes: Examination of the Patient, Discharge Planning, Medication Reconciliation, Communication With Other Providers and Other Discharge Plan Discharge Items Patient Disposition: Home - Home Health Services Reason For Visit: CHF, bronchitis Discharge Diagnosis: 1. diastolic CHF 2. lower extremity edema 3. complicated urinary tract infection 4. dysphagia 5. bronchitis Activity: Resume your previous activity Non-emergency contact: Primary Care Provider Call non-emergency contact if: you have any medication questions and your symptoms worsen Follow-up/Referrals: Jaquelin Crowley MD [Primary Care Provider] - (see within one week for follow up of your hospitalization) Melania French PA-C [Physician Information Architect] - 10/24/20 4:00 pm Diet: Carb Consistent or DM2 and Heart Healthy Diet Texture: Easy to Chew Addtl Attending Provider Instructions: 1. You were treated for congestive heart failure with IV lasix 2. Your weight decreased by 9 kg 3. You were also treated for an e. coli urinary tract infection 4. You were seen by gastroenterology for dysphagia They felt it was too high risk to perform EGD They advised you to choose foods that are easy to chew 5. Continue to take mucinex for your cough Addtl Pipe Stress Engineer Provider Instructions: You should be seen in the Heart Failure Clinic with Melania French THIS WEEK You should follow up with Dr. Díaz in 1-2 weeks Pending Studies at Discharge: No Stand-Alone Forms: My [facility] [place], Smoking Cessation Medications and DC Order Prescriptions: New spironolactone 25 mg Tablet 25 mg PO QAM Qty: 30 RF: 0 guaifenesin [Mucinex] 600 mg Tablet Extended Release 12hr 600 mg PO Q12 Qty: 60 RF: 0 Continued (DME) insulin syringe-needle U-100 [CareTouch Insulin Syringe] 1 mL 30 gauge x 5/16 syringe See Dose Instructions .ROUTE .MEDSUPPLY Qty: 300 RF: 5 amitriptyline 50 mg tablet 50 mg PO HS Qty: 90 RF: 3 metoprolol succinate 25 mg tablet extended release 24 hr 25 mg PO DAILY Qty: 90 RF: 1 allopurinol [Zyloprim] 100 mg tablet 100 mg PO QAM Qty: 90 RF: 1 ferrous sulfate 325 mg (65 mg iron) tablet 325 mg PO BID Qty: 180 RF: 3 (DME) lancets [BD Ultra Fine Lancets] 33 gauge misc See Rx Instructions .ROUTE .MEDSUPPLY Qty: 200 RF: 5 (DME) blood-glucose meter [True Metrix Glucose Meter] Misc See Rx Instructions .ROUTE .MEDSUPPLY Qty: 1 RF: 0 (DME) True Metrix Glucose Test Strip Strip See Rx Instructions .ROUTE .MEDSUPPLY Qty: 200 RF: 5 Eliquis 5 mg tablet 5 mg PO BID RF: 0 Hold Instructions: per hospital visit rosuvastatin [Crestor] 40 mg tablet 40 mg PO DAILY Qty: 90 RF: 3 ropinirole 5 mg tablet 5 mg PO QID Qty: 270 RF: 3 Levemir FlexTouch U-100 Insuln 100 unit/mL (3 mL) insulin pen 22 unit subcut BID RF: 0 acetaminophen 325 mg capsule 650 mg PO BID MDD 10 tabs PRN (Reason: pain (scale score 4-6)) RF: 0 furosemide [Lasix] 40 mg tablet 80 mg PO BID Qty: 0 RF: 0 nitroglycerin [Nitrostat] 0.4 mg tablet, sublingual 0.4 mg SL UD PRN (Reason: Chest Pain) Qty: 25 RF: 0 potassium chloride 20 mEq tablet extended release 20 meq PO BID Qty: 60 RF: 1 lidocaine 4 % adhesive patch,medicated 1 patch topical DAILY PRN (Reason: Pain) RF: 0 magnesium chloride 64 mg tablet,delayed release (DR/EC) 64 mg PO TID RF: 0 cholecalciferol (vitamin D3) 125 mcg (5,000 unit) capsule 125 mcg PO QAM RF: 0 insulin aspart U-100 [Novolog U-100 Insulin aspart] 100 unit/mL solution 5 units SQ QID RF: 0 pantoprazole 40 mg Tablet,Delayed Release (Dr/Ec) 40 mg PO BID Qty: 60 RF: 2 hydralazine 50 mg tablet 25 mg PO TID Qty: 270 RF: 1 albuterol sulfate [Ventolin HFA] 90 mcg/actuation HFA aerosol inhaler 1 - 2 inh inhalation UD PRN (Reason: shortness of breath) RF: 0 baclofen 10 mg tablet 5 mg PO HS RF: 0 Discharge Orders: Discharge Order (Routine); Ordered 10/23/20 Ordered By: Doretha Mojica Admission Data Admit Date/Time: 10/07/20 22:41 Attending Provider: Doretha Mojica Admit Provider: Nba Beebe Primary Care Provider: Jaquelin Crowley V. Other Providers: Nba Beebe ; Jorge L Kim. Other Interventions: Discharge Summary Assessment (RN) Last Done: 10/23/20 10:55 Coding Level of Care Code D/C Day Management >30 mins Diagnoses Acute hypoxemic respiratory failure J96.01 Acute on chronic diastolic (congestive) heart failure I50.33 Chronic right-sided congestive heart failure I50.812 Bronchitis J40 Type 2 diabetes mellitus with kidney complication, with long-term current use of insulin E11.29; Z79.4 Dysphagia R13.14 Dysphagia type: pharyngoesophageal phase Paraplegia G82.20 Anemia D64.9 Anemia type: unspecified type Hypertension I10 Hypertension type: unspecified Atrial fibrillation I48.20 Atrial fibrillation type: unspecified chronic Chronic kidney disease, stage 3 N18.30 Chronic kidney disease stage 3 subtype: unspecified whether 3a or 3b CAD (coronary artery disease) I25.10 Associated angina: without angina Coronary Disease-Associated Artery/Lesion type: [place] artery [place] vs. transplanted heart: [place] heart Indwelling Soto catheter present Z96.0 Restless leg syndrome G25.81 Morbid obesity with BMI of 45.0-49.9, adult E66.01; Z68.42 Complicated UTI (urinary tract infection) N39.0 DVT prophylaxis Z29.9
[2020-10-23] MEDS ORDERED: INSULIN ASPART PER UNIT SC ONE (12:30)
== END 2020-10-23 13:04 | disposition home or self-care (01) | DRG 291 ==
LOC: ED 17:27 → SUATTDRO 22:41 → 2S 22:41

== ENCOUNTER 2022-07-30 17:23 | Inpatient (IN) ==
[2022-07-30 18:37] LABS: Basophils # (auto) 0.03 K/uL (0-0.2); Basophils % (auto) 0.5 %; Eosinophils # (auto) 0.18 K/uL (0-0.50); Hematocrit (blood only) 24.2 % (34.1-44.9); Hemoglobin 7.3 g/dl (12.0-16.0); Immature Granulocytes # (auto) 0.04 K/uL (0.00-0.02); Immature Granulocytes % (auto) 0.7 %; Lymphocytes # (auto) 0.46 K/uL (1.2-3.4); Lymphocytes % (auto) 7.8 %; Mean Corpuscular Hemoglobin 27.5 pg (25.0-34.0); Mean Corpuscular Hgb Conc 30.2 g/dL (32.0-36.0); Mean Corpuscular Volume 91.3 fL (80.0-100.0); Mean Platelet Volume 9.2 fL (9.4-12.3); Monocytes # (auto) 0.52 K/uL (0.24-0.82); Monocytes % (auto) 8.8 %; Neutrophils # (auto) 4.69 K/uL (1.4-6.5); Neutrophils % (auto) 79.2 %; Platelet Count 189 K/uL (130-400); RDW Coefficient of Variation 18.6 % (11.5-14.5); RDW Standard Deviation 61.8 fL (36.4-46.3); Red Blood Count 2.65 M/uL (3.93-5.22); White Blood Count 5.92 K/ul (4.8-10.8)
--- NOTE | 2022-07-30 18:46 | Emergency Department Note ---
History of Present Illness General Chief complaint: Shortness of Breath/Dyspnea Stated complaint: SOB, COUGHING, LEGS FILLED WITH FLUID Time Seen by Provider: 07/30/22 17:43 Source: patient Mode of arrival: ambulatory Limitations: no limitations History of Present Illness Provider complaint: shortness of breath, increased weakness Onset (ago): week(s) 1 Treatments prior to arrival: none This is a 76-year-old female who presents emergency department complaining of i ncreased shortness of breath and lower extremity weakness. Patient has a chronic history of lower extremity weakness over the last 3 years from prior back surgery 3 years ago which is also left her wheelchair-bound. Patient does have a history of atrial fibrillation and is chronically anticoagulated. She has previously had congestive heart failure. She states that she does use furosemide currently. She and family have also noticed increased lower extremity edema. Patient does have a history of COPD although does not wear home oxygen. She does use MDIs. She denies any other recent change in medications or known sick contact. Pt seen during a time of high acuity and national emergency pandemic while wearing PPE. Home Medications Medication Instructions Recorded Confirmed Type magnesium chloride 64 mg 64 mg PO TID 06/02/19 07/30/22 History (magnesium chloride) tablet,delayed release insulin syringe-needle U-100 1 mL #300 ea 07/15/19 07/27/22 Rx 30 gauge x 5/16" (CareTouch Insulin Syringe) cholecalciferol (vitamin D3) 125 125 mcg PO QAM 04/16/20 07/30/22 History mcg (5,000 unit) capsule BD Ultra Fine Lancets 33 gauge #200 ea 09/20/20 07/27/22 Rx (lancets) True Metrix Glucose Meter #1 ea 09/20/20 07/27/22 Rx (blood-glucose meter) True Metrix Glucose Test Strip #200 ea 09/20/20 07/27/22 Rx (blood sugar diagnostic) nitroglycerin 0.4 mg sublingual 0.4 mg sublingual UD PRN Chest 10/07/20 07/30/22 Rx tablet (Nitrostat) Pain #25 tabs acetaminophen 325 mg capsule 650 mg PO TID PRN pain (scale 03/08/21 07/30/22 History score 4-6) FreeStyle Tomas 14 Day Sensor #6 ea 06/30/21 07/27/22 Rx (flash glucose sensor) spironolactone 25 mg tablet 25 mg PO QAM #90 tabs 10/23/21 07/30/22 Rx rosuvastatin 40 mg tablet 40 mg PO DAILY 11/29/21 07/30/22 History amitriptyline 50 mg tablet 50 mg PO HS #90 tabs 12/04/21 07/30/22 Rx apixaban 5 mg tablet (Eliquis) 5 mg PO BID #180 tabs 03/30/22 07/30/22 Rx ferrous sulfate 325 mg (65 mg 325 mg PO DAILY #90 tabs 03/31/22 07/30/22 Rx iron) tablet hydralazine 25 mg tablet 25 mg PO TID #90 tabs 05/07/22 07/30/22 Rx potassium chloride 20 mEq 20 meq PO BID #60 tabs 05/07/22 07/30/22 Rx tablet,extended release(part/cryst) ropinirole 5 mg tablet 5 mg PO QID #270 tabs 05/09/22 07/30/22 Rx insulin detemir U-100 100 unit/mL 35 unit (0.35 mL) subcut BID 90 05/10/22 07/30/22 Rx subcutaneous solution (Levemir days #63 mL U-100 Insulin) allopurinol 100 mg tablet 100 mg PO QAM #90 tabs 05/29/22 07/30/22 Rx (Zyloprim) metoprolol succinate 25 mg 25 mg PO QAM #90 tabs 05/29/22 07/30/22 Rx tablet,extended release 24 hr insulin aspart U-100 100 unit/mL See Rx Instructions subcut QID #60 06/28/22 07/30/22 Rx subcutaneous solution (Novolog mL U-100 Insulin aspart) pantoprazole 40 mg tablet,delayed 40 mg PO DAILY #90 tabs 07/03/22 07/30/22 Rx release furosemide 40 mg tablet (Lasix) 40 mg PO .COMPLEX 07/06/22 07/30/22 History albuterol sulfate 90 mcg/actuation 1 - 2 inh inhalation UD PRN 07/27/22 07/30/22 Rx aerosol inhaler (Ventolin HFA) shortness of breath #8.5 grams Allergies Allergy/AdvReac Type Severity Reaction Status Date / Time metoclopramide [From Reglan] Allergy Mild "went Verified 07/30/22 22:03 crazy" NSAIDS (Non-Steroidal Allergy Unknown UNK? Verified 07/30/22 22:03 Anti-Inflamma DENIES SOB. capsaicin AdvReac Severe SHORTNESS Verified 07/30/22 22:03 OF BREATH diclofenac AdvReac Severe SHORTNESS Verified 07/30/22 22:03 OF BREATH Past Med/Surg History Medical History Acute dehydration Acute hypoxemic respiratory failure Acute on chronic diastolic (congestive) heart failure Acute osteomyelitis of toe of left foot Acute UTI (urinary tract infection) Acute UTI (urinary tract infection) Alteration in tactile sense Anemia Aortic stenosis MILD-MOD per 08/2019 echo, but NO SIGNIFICANT STENOSIS noted on 10/12/19 echo. Atrial fibrillation On Eliquis Bronchitis CAD (coronary artery disease) s/p CABG x 2 in 2012. CAD has remained quiescent since then. Follows with Dr. Hernandez, who cleared the patient for lumbar surgery 07/2019. CHF (congestive heart failure) EF 50-55% CHF exacerbation Chronic kidney disease, stage 3 Clostridium difficile infection DX [facility] 12/2018 @ [facility]. Stool NEGATIVE 05/25/19. Diabetes mellitus, type 2 IDDM Diabetic foot ulcer Diabetic foot ulcer associated with type 2 diabetes mellitus Following with wound clinic [facility]. Diabetic ulcer of left heel associated with diabetes mellitus due to underlying condition DVT prophylaxis Dysphagia Dysphagia Fatty liver Fever Gout Graves disease Hypertension Hypoglycemia Indwelling Soto catheter present Leucocytosis Lumbar spinal stenosis Severe at L4-5. 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 Lump in neck Lung cancer S/P RM lobectomy 2015, follows with Dr. Perkins. 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 Traumatic wound Vaginal discharge, non-hemorrhagic Venous stasis ulcer of right lower leg with edema of right lower leg Surgical History Fusion of spine lumbar (07/2019) at [facility] --- uneventful surgery/anesthesia and hospitalization, but patient developed subsequent LE paraplegia. 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 History of appendectomy History of bilateral knee replacement History of bronchoscopy History of cardiac cath 2012 - [facility] - [place] - NO STENTS/ANGIOPLASTY -- > CABG History of cholecystectomy History of colonoscopy 11/2018 [facility] History of esophagogastroduodenoscopy (EGD) 11/2018 [facility] History of hysterectomy with oophorectomy KEARA with BSO History of lobectomy of lung RML History of ovarian cystectomy History of surgery Right VATS PROCEDURE History of tubal ligation Hx of CABG 2012 - - [place] [facility] - 2 VESSELS Family History Daughter Family history of diabetes mellitus Mother Heart disease Hypertension Myocardial infarction Father Hypertension Other Diabetes Denies family history of Ovarian cancer Prostate cancer Crohn's disease Breast cancer Colorectal cancer Ulcerative colitis Social History Smoking Status: Former smoker Tobacco Type: Cigarettes Years Smoked: 20; Cigarettes Per Day: 10; Number of Years Since Quit: 8; Second Hand Exposure: No; Hx Alcohol Use: No Hx Substance Use: No Preferred Language: Jordanian Communication Ability: Effective Visual Impairment: No Limitations Hearing 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 current occupational status: retired Feels Safe at Home: Yes Childhood Exposure to Second-Hand Smoke: No Dental Care, Regularly: No Physical Activity Frequency: Does not Exercise Seatbelt Use: always Sunscreen Use: No Assistive Devices: Denture - Upper, Denture - Lower and Mechanical Lift Review of Systems A total of 10 systems reviewed and were otherwise negative All systems reviewed & are unremarkable except as noted in HPI & below Physical Exam Vital Signs Vital Signs - 24 hr 07/30/22 17:26 07/30/22 17:24 07/30/22 17:24 Temperature 36.2 C L Temperature Source Temporal Artery Scan Pulse Rate 60 Pulse Rate [Right] Respiratory Rate 20 20 Respiratory Effort / Characteristics Non-Labored Non-Labored Respiratory Depth Normal Normal Respiratory Pattern Blood Pressure 124/56 L Blood Pressure [Right Arm] Blood Pressure Mean 78 Blood Pressure Mean [Right Arm] Pulse Oximetry 95 95 95 Oxygen Delivery Method Room Air Room Air Room Air Oxygen Flow Rate 0 Sepsis Recent Fever Within 48 Hours No Sepsis New/Unexplained Change in Mental Status No Sepsis Action Taken by Nursing No Action Required 07/30/22 17:28 07/30/22 21:38 Temperature Temperature Source Pulse Rate Pulse Rate [Right] 74 Respiratory Rate 22 Respiratory Effort / Characteristics Non-Labored Non-Labored Respiratory Depth Normal Normal Respiratory Pattern Regular Blood Pressure Blood Pressure [Right Arm] 124/77 Blood Pressure Mean Blood Pressure Mean [Right Arm] 92 Pulse Oximetry 94 Oxygen Delivery Method Room Air Room Air Oxygen Flow Rate Sepsis Recent Fever Within 48 Hours Sepsis New/Unexplained Change in Mental Status Sepsis Action Taken by Nursing GENERAL: alert, well appearing, well nourished, no distress, non-toxic EYE EXAM: normal conjunctiva, PERRL and EOM's grossly intact OROPHARYNX: no exudate, no erythema, lips, buccal mucosa, and tongue normal and mucous membranes are moist NECK: supple, no nuchal rigidity, no adenopathy, non-tender LUNGS: Clear to auscultation. Normal chest wall mechanics, no w/r/r, mild conversational dyspnea noted HEART: no murmurs, S1 normal and S2 normal ABDOMEN: abdomen soft, non-tender, normo-active bowel sounds, no masses, no rebound or guarding. BACK: Back is symmetrical on inspection and there is no deformity, no midline tenderness, no CVA tenderness. SKIN: no rashes and no bruising UPPER EXTREMITIES: upper extremities are grossly normal. FROM, nml pulses b/l. LOWER EXTREMITIES: 2+ b/l pitting edema. decreased ROM b/l, nml pulses b/l. NEURO EXAM: Normal sensorium, cranial nerves II-XII grossly intact, normal s peech, no gross weakness of arms, b/l weakness of legs. Gross sensation intact. Course Course 2039: Discussed all results with pt and daughter at bedside. Patient states about a month ago she had noticed blood with a bowel movement. She states she has intermittently noticed blood in the past, nothing more recently. She states her stools are intermittently dark. She states she has previously had a colonoscopy and states she had no problems reported to her from that procedure. She states she has not undergone EGD. Denies any prior history of PUD. Administered Medications Discontinued Medications Furosemide (Furosemide 40 Mg/4 Ml Vial) 40 mg IV ONE ONE Stop: 07/30/22 20:48 Last Admin: 07/30/22 21:12 Dose: 40 mg Documented By: DIANNE Acetaminophen (Ofirmev) 1,000 mg in 100 mls @ 400 mls/hr IV NOW STA Stop: 07/30/22 20:32 Last Infusion: 07/30/22 21:06 Dose: 0 mls/hr Documented By: Admin: 07/30/22 20:41 Dose: 400 mls/hr Documented By: DIANNE Ropinirole HCl (Ropinirole Hcl 1 Mg Tablet) 5 mg PO NOW STA Stop: 07/30/22 20:19 Last Admin: 07/30/22 20:41 Dose: 5 mg Documented By: DIANNE Medical Decision Making Differential Diagnosis Differential diagnoses includes but is not limited to pneumonia, bronchitis, COPD/Asthma exacerbation, pneumothorax, pulmonary embolism, congestive heart failure, acute coronary syndrome Medical Records Attestation: I reviewed the patient's medical records. Home Medications Current Medication List: was personally reviewed by me Laboratory Data Attestation: I reviewed the patient's lab results. Result diagrams: 07/30/22 22:41 07/30/22 18:15 Lab Results 07/30/22 07/30/22 07/30/22 Range/Units 18:15 18:15 18:15 WBC 5.92 (4.8-10.8) K/ul RBC 2.65 L (3.93-5.22) M/uL Hgb 7.3 L (12.0-16.0) g/dl Hct 24.2 L (34.1-44.9) % MCV 91.3 (80.0-100.0) fL MCH 27.5 (25.0-34.0) pg MCHC 30.2 L (32.0-36.0) g/dL RDW Std Deviation 61.8 H (36.4-46.3) fL RDW Coeff of Lelo 18.6 H (11.5-14.5) % Plt Count 189 (130-400) K/uL MPV 9.2 L (9.4-12.3) fL Immature Gran % (Auto) 0.7 % Neut % (Auto) 79.2 % Lymph % (Auto) 7.8 % [place] % (Auto) 8.8 % Eos % (Auto) 3.0 % Baso % (Auto) 0.5 % Neut # (Auto) 4.69 (1.4-6.5) K/uL Lymph # (Auto) 0.46 L (1.2-3.4) K/uL [place] # (Auto) 0.52 (0.24-0.82) K/uL Eos # (Auto) 0.18 (0-0.50) K/uL Baso # (Auto) 0.03 (0-0.2) K/uL Immature Gran # (Auto) 0.04 H (0.00-0.02) K/uL Anisocytosis Present Tear Drop Cells 1+ Ovalocytes 1+ PT 12.7 H (9.0-12.0) Seconds INR 1.2 H (0.9-1.1) Sodium 132 L (136-145) mmol/L Potassium 4.0 (3.5-5.1) mmol/L Chloride 99 (98-107) mmol/L Carbon Dioxide 23 (21-32) mmol/L Anion Gap 10 (3-11) BUN 62 H (6-23) mg/dl Creatinine 2.09 H (0.6-1.2) mg/dl Est Cr Clr Drug Dosing Not Reportable Est GFR ( Amer) 25.8 ml/min Est GFR (Non-Af Amer) 22.3 ml/min BUN/Creatinine Ratio 29.7 H (10-20) Glucose 199 H (70-99(Fasting)) mg/dl Calcium 8.8 (8.5-10.1) mg/dl Magnesium 1.9 (1.7-2.4) mg/dl Total Bilirubin 0.8 (0.2-1.0) mg/dl AST 22 (13-39) U/L ALT 16 (7-52) U/L Alkaline Phosphatase 74 (34-104) U/L Troponin I High Sens 28.7 H (0-14) pg/ml B-Natriuretic Peptide (0-100) pg/ml Total Protein 6.6 (6.0-8.3) gm/dl Albumin 3.9 (3.4-5.0) gm/dl Globulin 2.7 (2.5-4.0) gm/dl Albumin/Globulin Ratio 1.4 (0.9-2) Lipase 44 (11-82) U/L TSH (0.300-4.500) uIu/ml SARS-CoV-2 (PCR) (Negative) Influenza Type A (PCR) (Neg) Influenza Type B (PCR) (Neg) RSV (RT-PCR) (Neg) Blood Type Antibody Screen Crossmatch 07/30/22 07/30/22 07/30/22 Range/Units 18:15 19:13 19:13 WBC (4.8-10.8) K/ul RBC (3.93-5.22) M/uL Hgb (12.0-16.0) g/dl Hct (34.1-44.9) % MCV (80.0-100.0) fL MCH (25.0-34.0) pg MCHC (32.0-36.0) g/dL RDW Std Deviation (36.4-46.3) fL RDW Coeff of Lelo (11.5-14.5) % Plt Count (130-400) K/uL MPV (9.4-12.3) fL Immature Gran % (Auto) % Neut % (Auto) % Lymph % (Auto) % [place] % (Auto) % Eos % (Auto) % Baso % (Auto) % Neut # (Auto) (1.4-6.5) K/uL Lymph # (Auto) (1.2-3.4) K/uL [place] # (Auto) (0.24-0.82) K/uL Eos # (Auto) (0-0.50) K/uL Baso # (Auto) (0-0.2) K/uL Immature Gran # (Auto) (0.00-0.02) K/uL Anisocytosis Tear Drop Cells Ovalocytes PT (9.0-12.0) Seconds INR (0.9-1.1) Sodium (136-145) mmol/L Potassium (3.5-5.1) mmol/L Chloride (98-107) mmol/L Carbon Dioxide (21-32) mmol/L Anion Gap (3-11) BUN (6-23) mg/dl Creatinine (0.6-1.2) mg/dl Est Cr Clr Drug Dosing Est GFR ( Amer) ml/min Est GFR (Non-Af Amer) ml/min BUN/Creatinine Ratio (10-20) Glucose (70-99(Fasting)) mg/dl Calcium (8.5-10.1) mg/dl Magnesium (1.7-2.4) mg/dl Total Bilirubin (0.2-1.0) mg/dl AST (13-39) U/L ALT (7-52) U/L Alkaline Phosphatase (34-104) U/L Troponin I High Sens (0-14) pg/ml B-Natriuretic Peptide 168 H (0-100) pg/ml Total Protein (6.0-8.3) gm/dl Albumin (3.4-5.0) gm/dl Globulin (2.5-4.0) gm/dl Albumin/Globulin Ratio (0.9-2) Lipase (11-82) U/L TSH 3.456 (0.300-4.500) uIu/ml SARS-CoV-2 (PCR) (Negative) Influenza Type A (PCR) (Neg) Influenza Type B (PCR) (Neg) RSV (RT-PCR) (Neg) Blood Type A Positive Antibody Screen NEGATIVE Crossmatch See Detail 07/30/22 07/30/22 Range/Units 21:15 21:29 WBC (4.8-10.8) K/ul RBC (3.93-5.22) M/uL Hgb (12.0-16.0) g/dl Hct (34.1-44.9) % MCV (80.0-100.0) fL MCH (25.0-34.0) pg MCHC (32.0-36.0) g/dL RDW Std Deviation (36.4-46.3) fL RDW Coeff of Lelo (11.5-14.5) % Plt Count (130-400) K/uL MPV (9.4-12.3) fL Immature Gran % (Auto) % Neut % (Auto) % Lymph % (Auto) % [place] % (Auto) % Eos % (Auto) % Baso % (Auto) % Neut # (Auto) (1.4-6.5) K/uL Lymph # (Auto) (1.2-3.4) K/uL [place] # (Auto) (0.24-0.82) K/uL Eos # (Auto) (0-0.50) K/uL Baso # (Auto) (0-0.2) K/uL Immature Gran # (Auto) (0.00-0.02) K/uL Anisocytosis Tear Drop Cells Ovalocytes PT (9.0-12.0) Seconds INR (0.9-1.1) Sodium (136-145) mmol/L Potassium (3.5-5.1) mmol/L Chloride (98-107) mmol/L Carbon Dioxide (21-32) mmol/L Anion Gap (3-11) BUN (6-23) mg/dl Creatinine (0.6-1.2) mg/dl Est Cr Clr Drug Dosing Est GFR ( Amer) ml/min Est GFR (Non-Af Amer) ml/min BUN/Creatinine Ratio (10-20) Glucose (70-99(Fasting)) mg/dl Calcium (8.5-10.1) mg/dl Magnesium (1.7-2.4) mg/dl Total Bilirubin (0.2-1.0) mg/dl AST (13-39) U/L ALT (7-52) U/L Alkaline Phosphatase (34-104) U/L Troponin I High Sens 32.8 H (0-14) pg/ml B-Natriuretic Peptide (0-100) pg/ml Total Protein (6.0-8.3) gm/dl Albumin (3.4-5.0) gm/dl Globulin (2.5-4.0) gm/dl Albumin/Globulin Ratio (0.9-2) Lipase (11-82) U/L TSH (0.300-4.500) uIu/ml SARS-CoV-2 (PCR) NEGATIVE (Negative) Influenza Type A (PCR) Negative (Neg) Influenza Type B (PCR) Negative (Neg) RSV (RT-PCR) Negative (Neg) Blood Type Antibody Screen Crossmatch Imaging Data Radiologist's Impression: Chest X-Ray 07/30/22 18:09 XR chest 1V portable CLINICAL HISTORY: sob TECHNIQUE: Single frontal radiograph of the chest was obtained. Comparison: Comparison is made to chest radiograph 10/15/2021 FINDINGS: Median sternotomy wires are seen. Cardiomegaly is noted. There is calcification of the aorta. Prominence and cephalization of the vasculature is seen. No evidence of pleural effusion or pneumothorax. IMPRESSION: Cardiomegaly and mild pulmonary edema. ACT 112: Negative or not required by law. Electronically signed by: Akhil Juárez M.D. 07/30/2022 6:47 PM ECG Data Attestation: I personally reviewed and interpreted this ECG as follows: Indication: + SOB/dyspnea Rate (beats per minute): 61 Rhythm: + atrial fibrillation ECG Intervals/blocks: + Left bundle branch block and + Prolonged QT ECG [place]: + Left axis deviation ECG ST segments: + Nonspecific ST abnormalities MDM Narrative An order was placed for continuous cardiac monitoring. The monitor shows a rate of _76__ with _atrial fibrillation_ rhythm. This is a 76-year-old female who presents with increased shortness of breath. Family concern for possible evolving CHF although patient does have history of COPD concurrently. Patient does use a diuretic already and does follow with cardiology. Patient has history of atrial fibrillation and is chronically anticoagulated. Patient is unfortunately wheelchair-bound due to chronic lower extremity weakness secondary to prior spinal surgery several years ago. Patient found to have elevated BNP and elevated troponin. She was also found to have worsening anemia compared to her prior baseline. Upon further questioning she did admit to intermittent melena and hematochezia. Patient denies any more recent symptoms. She denies any abdominal pain, chest pain. No recent acute illness. Chest x-ray more suggestive of evolving congestive heart failure. I suspect mildly elevated troponin secondary to demand. Case discussed with hospitalist for additional evaluation and management. Patient was given additional dose of furosemide while in the emergency room. COVID swab negative. Impression & Plan Dyspnea, CHF (congestive heart failure), Anemia, Elevated troponin Discharge Plan Visit Data Chief Complaint: Shortness of Breath/Dyspnea Stated Complaint: SOB, COUGHING, LEGS FILLED WITH FLUID ED Provider: Sabrina Lynn Discharge Problem: Dyspnea, CHF (congestive heart failure), Anemia, Elevated troponin Discharge Instructions Interventions: ED Discharge Assessment Last Done: 07/30/22 23:34
[2022-07-30 18:54] LABS: INR 1.2 (0.9-1.1); Prothrombin Time 12.7 Seconds (9.0-12.0)
[2022-07-30 18:58] LABS: Anisocytosis Present; Ovalocytes 1+; Tear Drop Cells 1+
[2022-07-30 19:28] LABS: Alanine Aminotransferase 16 U/L (7-52); Albumin Globulin Ratio 1.4 (0.9-2); Albumin Level 3.9 gm/dl (3.4-5.0); Alkaline Phosphatase 74 U/L (34-104); Anion Gap 10 (3-11); Aspartate Aminotransferase 22 U/L (13-39); BUN Creatinine Ratio 29.7 (10-20); Bilirubin,Total 0.8 mg/dl (0.2-1.0); Blood Urea Nitrogen 62 mg/dl (6-23); Calcium 8.8 mg/dl (8.5-10.1); Carbon Dioxide 23 mmol/L (21-32); Chloride 99 mmol/L (98-107); Est GFR (African American) 25.8 ml/min; Est GFR (Non-African American) 22.3 ml/min; Globulin 2.7 gm/dl (2.5-4.0); Glucose 199 mg/dl (70-99(Fasting)); Lipase 44 U/L (11-82); Magnesium 1.9 mg/dl (1.7-2.4); Sodium 132 mmol/L (136-145); Total Protein 6.6 gm/dl (6.0-8.3)
[2022-07-30 19:36] LABS: Troponin I High Sensitivity 28.7 pg/ml (0-14)
[2022-07-30] MEDS ORDERED: rOPINIRole HCL 1 MG TABLET PO STA (20:18)
[2022-07-30] MEDS ORDERED: ACETAMINOPHEN 1,000 MG/100 ML VIAL IV STA (20:18)
[2022-07-30] MEDS ORDERED: FUROSEMIDE 40 MG/4 ML VIAL IV ONE (20:47)
--- NOTE | 2022-07-30 21:14 | History & Physical Report ---
Date of Service July 30, 2022 Assessment & Plan (1) Anemia: Plan: 76yo female with a history of atrial fibrillation (on anticoagulation), CHF, HTN, HLD, CAD s/p CABG (x2 in 2012), IDDM2, CKD3, RLS, JASON (on CPAP), gout, neurogenic bladder (with chronic suprapubic catheter), and GERD presents with a one-week history of worsening SOB, cough, and increased LE edema. SOB, cough, increased LE edema suspected secondary to CHF exacerbation Patient with one-week history of the above symptoms BNP on arrival elevated to 168, CXR showing cardiomegaly and pulmonary vascular congestion Suspect some contribution from anemia (plan below) Symptoms improved in the ED with lasix 40mg IV (x1) Prior echo (11/2021): EF 45-50%, mild LVH, mildly reduced biventricular systolic function, other mild findings Repeat echo ordered Continue home metoprolol, spironolactone Trend CBC, BMP Normocytic anemia Hgb on admission 7.3 (baseline ~10) No recent signs of active bleeding; FOBT ordered Holding home eliquis until FOBT results; SCDs ordered in the meantime Will transfuse 1u pRBC; transfusion consent completed Will administer lasix 40mg IV (x1) after transfusion is complete to help with fluid burden Trend CBC SRINI on CKD3 Creatinine elevated on admission (2.1; baseline ~1.7) Holding further IVF while 1u pRBC is transfusing Careful diuresis; lasix 40mg IV (x1) given in ED, lasix 40mg IV (x1) ordered to be given when transfusion completes Maintain K>4.0 and mag>2.0 KCl 20mEq bid ordered Magnesium oxide 400mg qd ordered Trend BMP, avoid nephrotoxins when possible, encourage PO intake Atrial fibrillation Patient in afib on arrival, though rate-controlled Holding home eliquis pending FOBT results SCDs ordered Continue home metoprolol Elevated troponin On admission, hsTroponin elevated to 28.7, repeat value 32.8; no further repeat values indicated EKG: atrial fibrillation, rate-controlled, no overt sign of ischemic change Patient without CP at this time DM2 HbA1c 8.6% (04/2021), repeat value ordered Patient's home regimen held on admission Continue BSG checks, sliding-scale insulin, hypoglycemic protocol COPD: continue home regimen HTN: continue home regimen HLD, CAD s/p CABG: repeat lipid profile ordered, continue home regimen Neurogenic bladder: suprapubic catheter in place JASON: continue CPAP RLS: continue home regimen GERD: continue home regimen FEN: heart healthy, DM2 diet Code status: conditional (NO defibrillation, YES to all else) DVT ppx: SCDs Held home meds: yamile PT/OT: ordered Dispo: PCU (2) CHF (congestive heart failure): (3) Atrial fibrillation: (4) CAD (coronary artery disease): (5) Chronic kidney disease, stage 3: (6) Hypertension: (7) Hyperlipidemia: (8) Indwelling Soto catheter present: (9) Peripheral arterial disease: (10) Sleep apnea: History of Present Illness Primary Care Provider: Jaquelin Crowley MD 76yo female with a history of atrial fibrillation (on anticoagulation), CHF, HTN, HLD, CAD, IDDM2, CKD3, RLS, JASON (on CPAP), gout, neurogenic bladder (with chronic suprapubic catheter), and GERD presents with SOB, cough, and increased LE edema. Symptoms have been going on for about a week. No clear trigger. Patient has been taking her home lasix with some improvement. Patient does note an episode of dark/tarry stools about a month ago but hasn't noticed this again recently. Patient denies fever, chills, headache, vision changes, CP, palpitations, abdominal pain, nausea, vomiting, lightheadedness, dizziness, or other symptoms. Denies recent illness and recent travel. Upon arrival, vitals were notable for mild intermittent bradycardia (low of 54); BP not elevated, no tachypnea, patient afebrile, spO2 adequate on room air. Initial labs were notable for mild anemia (7.3), mild hyponatremia (132), elevated creatinine (2.1, baseline ~1.7), elevated INR (1.2), elevated hsTroponin (28.7), and mildly elevated BNP (168). LFTs not elevated, lipase not elevated, TSH wnl. In the ED, patient was given lasix 40mg IV (x1), ropinirole 5mg PO (x1), and acetaminophen 1000mg IV (x1). Surrogate decision-maker in case of an emergency: Jesse Ramires (cell: [phone]) or daughter Kalie Alfaro (cell: [phone]) Allergies Allergy/AdvReac Type Severity Reaction Status Date / Time metoclopramide [From Reglan] Allergy Mild "went Verified 07/30/22 22:03 crazy" NSAIDS (Non-Steroidal Allergy Unknown UNK? Verified 07/30/22 22:03 Anti-Inflamma DENIES SOB. capsaicin AdvReac Severe SHORTNESS Verified 07/30/22 22:03 OF BREATH diclofenac AdvReac Severe SHORTNESS Verified 07/30/22 22:03 OF BREATH Home Medications Medication Instructions Recorded Confirmed Type magnesium chloride 64 mg 64 mg PO TID 06/02/19 07/30/22 History (magnesium chloride) tablet,delayed release insulin syringe-needle U-100 1 mL #300 ea 07/15/19 07/27/22 Rx 30 gauge x 5/16" (CareTouch Insulin Syringe) cholecalciferol (vitamin D3) 125 125 mcg PO QAM 04/16/20 07/30/22 History mcg (5,000 unit) capsule BD Ultra Fine Lancets 33 gauge #200 ea 09/20/20 07/27/22 Rx (lancets) True Metrix Glucose Meter #1 ea 09/20/20 07/27/22 Rx (blood-glucose meter) True Metrix Glucose Test Strip #200 ea 09/20/20 07/27/22 Rx (blood sugar diagnostic) nitroglycerin 0.4 mg sublingual 0.4 mg sublingual UD PRN Chest 10/07/20 07/30/22 Rx tablet (Nitrostat) Pain #25 tabs acetaminophen 325 mg capsule 650 mg PO TID PRN pain (scale 03/08/21 07/30/22 History score 4-6) FreeStyle Tomas 14 Day Sensor #6 ea 06/30/21 07/27/22 Rx (flash glucose sensor) spironolactone 25 mg tablet 25 mg PO QAM #90 tabs 10/23/21 07/30/22 Rx rosuvastatin 40 mg tablet 40 mg PO DAILY 11/29/21 07/30/22 History amitriptyline 50 mg tablet 50 mg PO HS #90 tabs 12/04/21 07/30/22 Rx apixaban 5 mg tablet (Eliquis) 5 mg PO BID #180 tabs 03/30/22 07/30/22 Rx ferrous sulfate 325 mg (65 mg 325 mg PO DAILY #90 tabs 03/31/22 07/30/22 Rx iron) tablet hydralazine 25 mg tablet 25 mg PO TID #90 tabs 05/07/22 07/30/22 Rx potassium chloride 20 mEq 20 meq PO BID #60 tabs 05/07/22 07/30/22 Rx tablet,extended release(part/cryst) ropinirole 5 mg tablet 5 mg PO QID #270 tabs 05/09/22 07/30/22 Rx insulin detemir U-100 100 unit/mL 35 unit (0.35 mL) subcut BID 90 05/10/22 07/30/22 Rx subcutaneous solution (Levemir days #63 mL U-100 Insulin) allopurinol 100 mg tablet 100 mg PO QAM #90 tabs 05/29/22 07/30/22 Rx (Zyloprim) metoprolol succinate 25 mg 25 mg PO QAM #90 tabs 05/29/22 07/30/22 Rx tablet,extended release 24 hr insulin aspart U-100 100 unit/mL See Rx Instructions subcut QID #60 06/28/22 07/30/22 Rx subcutaneous solution (Novolog mL U-100 Insulin aspart) pantoprazole 40 mg tablet,delayed 40 mg PO DAILY #90 tabs 07/03/22 07/30/22 Rx release furosemide 40 mg tablet (Lasix) 40 mg PO .COMPLEX 07/06/22 07/30/22 History Ventolin HFA 90 mcg/actuation 1 - 2 inh inhalation Q6H PRN 07/31/22 Rx aerosol inhaler (albuterol sulfate) shortness of breath #18 grams Past Med/Surg History Medical History Acute dehydration Acute hypoxemic respiratory failure Acute on chronic diastolic (congestive) heart failure Acute osteomyelitis of toe of left foot Acute UTI (urinary tract infection) Acute UTI (urinary tract infection) Alteration in tactile sense Anemia Aortic stenosis MILD-MOD per 08/2019 echo, but NO SIGNIFICANT STENOSIS noted on 10/12/19 echo. Atrial fibrillation On Eliquis Bronchitis CAD (coronary artery disease) s/p CABG x 2 in 2012. CAD has remained quiescent since then. Follows with Dr. Hernandez, who cleared the patient for lumbar surgery 07/2019. CHF (congestive heart failure) EF 50-55% CHF exacerbation Chronic kidney disease, stage 3 Clostridium difficile infection DX [facility] 12/2018 @ [facility]. Stool NEGATIVE 05/25/19. Diabetes mellitus, type 2 IDDM Diabetic foot ulcer Diabetic foot ulcer associated with type 2 diabetes mellitus Following with wound clinic [facility]. Diabetic ulcer of left heel associated with diabetes mellitus due to underlying condition DVT prophylaxis Dysphagia Dysphagia Fatty liver Fever Gout Graves disease Hypertension Hypoglycemia Indwelling Soto catheter present Leucocytosis Lumbar spinal stenosis Severe at L4-5. 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 Lump in neck Lung cancer S/P RM lobectomy 2015, follows with Dr. Perkins. 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 Traumatic wound Vaginal discharge, non-hemorrhagic Venous stasis ulcer of right lower leg with edema of right lower leg Surgical History Fusion of spine lumbar (07/2019) at [facility] --- uneventful surgery/anesthesia and hospitalization, but patient developed subsequent LE paraplegia. 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 History of appendectomy History of bilateral knee replacement History of bronchoscopy History of cardiac cath 2012 - [facility] - [place] - NO STENTS/ANGIOPLASTY -- > CABG History of cholecystectomy History of colonoscopy 11/2018 [facility] History of esophagogastroduodenoscopy (EGD) 11/2018 [facility] History of hysterectomy with oophorectomy KEARA with BSO History of lobectomy of lung RML History of ovarian cystectomy History of surgery Right VATS PROCEDURE History of tubal ligation Hx of CABG 2012 - - [place] - 2 VESSELS Family History Daughter Family history of diabetes mellitus Mother Heart disease Hypertension Myocardial infarction Father Hypertension Other Diabetes Denies family history of Ovarian cancer Prostate cancer Crohn's disease Breast cancer Colorectal cancer Ulcerative colitis Social History Smoking Status: Former smoker Tobacco Type: Cigarettes Years Smoked: 20; Cigarettes Per Day: 10; Number of Years Since Quit: 8; Second Hand Exposure: No; Do You Dip or Chew Tobacco: No; Tobacco Cessation Education Requested by Patient: No Hx Alcohol Use: No Hx Substance Use: No Preferred Language: Micronesian Communication Ability: Effective Visual Impairment: No Limitations Hearing Ability: Normal 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 current occupational status: retired How many Children do You have: 5 Other Information That Helps Us Care for You: No Feels Safe at Home: Yes Safety Concerns: Feels Safe At This Time Childhood Exposure to Second-Hand Smoke: No Dental Care, Regularly: No Physical Activity Frequency: Does not Exercise Seatbelt Use: always Sunscreen Use: No Assistive Devices: CPAP, Walker and Wheelchair Assistive Devices Comment: pt is w/c bound states at baseline able to pivot/transfer w/ walker Physical Exam Physical Exam: Constitutional: tired-appearing, no acute distress HEENT: NCAT, no conjunctival injection, MMM CV: irregularly rhythm, heart sounds distant, extremities well-perfused, no LE edema Resp: mild bibasilar crackles appreciated, no wheezes or rhonchi appreciated, no increased work of breathing GI: soft, nondistended, nontender, BS normoactive Skin: no bruising appreciated Neuro: alert, oriented, no focal neurologic deficit appreciated Results & Data Results & Data ([facility]) Vital Signs (Past 12 Hours) Vital Signs Temp Pulse Resp BP Pulse Ox O2 Del Method O2 Flow Rate 07/30/22 17:28 Room Air 07/30/22 17:24 20 95 Room Air 07/30/22 17:24 95 Room Air 0 07/30/22 17:26 36.2 C L 60 20 124/56 L 95 Room Air Supervising Physician Co-Signing Physician Notes Attending addendum: I have physically seen this patient, have supervised the medical residents activities, and agree with the H&P unless as otherwise noted. Assessment and Plan: High-output congestive heart failure/HFrEF exacerbation- Status post Lasix 40 mg IV in the ED Transfuse 1 unit PRBCs now for hemoglobin of 7.3, and then repeat Lasix 40 mg IV. Follow serial basic metabolic panel and magnesium levels Ejection fraction 45-50% noted on 11/21 echocardiogram Continue metoprolol and spironolactone Anemia- 7.3 upon admission, with base 9.3-10.3 Hemoccult stools, as patient reports some change in stool character Likely function of anemia of chronic disease/CKD Serial H&H's Acute kidney injury on chronic kidney disease- Creatinine 2.09 on admission, with base 1.7 Likely an issue with forward flow associated with low hemoglobin Should improve with increased perfusion after transfusion Elevated troponin/atrial fibrillation/hypertension- Troponin 28.7 upon admission The patient will be admitted to telemetry for serial cardiac enzymes, serial EKG's, cardiac rhythm monitoring. Diabetes mellitus- Continue insulin detemir Place on Accu-Cheks before meals and at bedtime NovoLog coverage per scale Check hemoglobin A1c Remaining orders and notations as noted Resident Activity Tracking Resident Involvement: Resident Care Provided and Microfilm Clerk Coverage Note Care Provided: Adult Hospital Medicine (1) Chronic kidney disease, stage 3 Chronic kidney disease stage 3 subtype: unspecified whether 3a or 3b Qualified Code(s): N18.30 - Chronic kidney disease, stage 3 unspecified (2) CAD (coronary artery disease) Associated angina: without angina Coronary Disease-Associated Artery/Lesion type: pilot [place] artery Solomon vs. transplanted heart: [place] heart Qualified Code(s): I25.10 - Atherosclerotic heart disease of [place] coronary artery without angina pectoris (3) Anemia Anemia type: unspecified type Qualified Code(s): D64.9 - Anemia, unspecified (4) Atrial fibrillation Atrial fibrillation type: unspecified chronic Qualified Code(s): I48.20 - Chronic atrial fibrillation, unspecified (5) Hypertension Hypertension type: unspecified Qualified Code(s): I10 - Essential (primary) hypertension
[2022-07-30] MEDS ORDERED: ALBUTEROL HFA 8 GM INHALER INH PRN (21:52)
[2022-07-30 22:25] LABS: Influenza A virus by PCR Negative (Neg); Influenza B virus by PCR Negative (Neg); RSV by PCR Negative (Neg); SARS CoV2 RNA(COVID-19) InHosp NEGATIVE (Negative)
[2022-07-30 22:50] LABS: Hematocrit (blood only) 22.3 % (34.1-44.9); Hemoglobin 6.6 g/dl (12.0-16.0)
[2022-07-30] MEDS ORDERED: CARBOHYDRATES FOR HYPOGLYCEMIA PO PRN (23:56)
[2022-07-30] MEDS ORDERED: SODIUM CHLORIDE 0.9% 250 ML IV PRN (23:56)
[2022-07-30] MEDS ORDERED: GLUCOSE 10 TAB/TUBE PO PRN (23:56)
[2022-07-30] MEDS ORDERED: ONDANSETRON INJ 2 MG/ML 2 ML VIAL IV PRN (23:56)
[2022-07-30] MEDS ORDERED: DEXTROSE 50% 50 ML SYRINGE IV PRN (23:56)
[2022-07-30] MEDS ORDERED: GLUCOSE 40% GEL 15 GM TUBE PO PRN (23:56)
[2022-07-30] MEDS ORDERED: GLUCAGON FOR INJ 1 MG VIAL SQ PRN (23:56)
[2022-07-30] MEDS ORDERED: MELATONIN 3 MG TAB PO PRN (23:56)
[2022-07-31] MEDS: POTASSIUM CHLORIDE CRTAB 20 MEQ TABCR PO SCH ×3 (00:05→19:59)
[2022-07-31] MEDS: INSULIN ASPART PER UNIT SC SCH ×5 (00:14→20:13)
[2022-07-31] MEDS ORDERED: FUROSEMIDE 40 MG/4 ML VIAL IV ONE ×2 (02:00→04:30)
[2022-07-31 06:13] LABS: Basophils # (auto) 0.05 K/uL (0-0.2); Basophils % (auto) 0.9 %; Eosinophils # (auto) 0.18 K/uL (0-0.50); Eosinophils % (auto) 3.1 %; Hematocrit (blood only) 24.7 % (34.1-44.9); Hemoglobin 7.6 g/dl (12.0-16.0); Immature Granulocytes # (auto) 0.03 K/uL (0.00-0.02); Immature Granulocytes % (auto) 0.5 %; Lymphocytes # (auto) 0.53 K/uL (1.2-3.4); Lymphocytes % (auto) 9.2 %; Mean Corpuscular Hemoglobin 27.8 pg (25.0-34.0); Mean Corpuscular Hgb Conc 30.8 g/dL (32.0-36.0); Mean Corpuscular Volume 90.5 fL (80.0-100.0); Mean Platelet Volume 9.3 fL (9.4-12.3); Monocytes # (auto) 0.62 K/uL (0.24-0.82); Monocytes % (auto) 10.7 %; Neutrophils # (auto) 4.36 K/uL (1.4-6.5); Neutrophils % (auto) 75.6 %; Platelet Count 171 K/uL (130-400); RDW Standard Deviation 62.3 fL (36.4-46.3); Red Blood Count 2.73 M/uL (3.93-5.22); White Blood Count 5.77 K/ul (4.8-10.8)
[2022-07-31 06:46] LABS: Ovalocytes 1+; Polychromasia 1+; Tear Drop Cells 1+
[2022-07-31 06:51] LABS: INR 1.2 (0.9-1.1); Prothrombin Time 12.7 Seconds (9.0-12.0)
[2022-07-31 07:07] LABS: Albumin Globulin Ratio 1.5 (0.9-2); Albumin Level 3.7 gm/dl (3.4-5.0); BUN Creatinine Ratio 29.5 (10-20); Bilirubin,Total 1.5 mg/dl (0.2-1.0); Calcium 8.7 mg/dl (8.5-10.1); Chol HDL Ratio 3.2 (0-5); Creatinine Clr Calc Pharmacy 27.2 ml/min; Est GFR (African American) 25.7 ml/min; Est GFR (Non-African American) 22.1 ml/min; Globulin 2.5 gm/dl (2.5-4.0); Phosphorus 4.8 mg/dl (2.5-4.9); Total Protein 6.2 gm/dl (6.0-8.3)
[2022-07-31] MEDS: ACETAMINOPHEN 325 MG TAB PO PRN ×3 (07:20→19:54)
[2022-07-31 07:32] LABS: Estimated Average Glucose 143 mg/dl; Hemoglobin A1C 6.6 % (4.5-5.6)
[2022-07-31] MEDS: ROSUVASTATIN CALCIUM 20 MG TAB PO SCH (08:20)
[2022-07-31] MEDS: MAGNESIUM OXIDE 400 MG TAB PO SCH (08:20)
[2022-07-31] MEDS: PANTOprazole 40 MG TAB PO SCH (08:20)
[2022-07-31] MEDS: SPIRONOLACTONE 25 MG TAB PO SCH (08:20)
[2022-07-31] MEDS: allopurinoL 100 MG TAB PO SCH (08:20)
[2022-07-31] MEDS: rOPINIRole HCL 2 MG TABLET PO SCH ×4 (08:20→19:59)
[2022-07-31 08:32] LABS: Potassium 3.9 mmol/L (3.5-5.1)
[2022-07-31] MEDS: METOPROLOL SUCC 25MG EXT REL TAB PO SCH (08:48)
[2022-07-31] MEDS ORDERED: SODIUM CHLORIDE 0.9% 250 ML IV PRN (08:55)
[2022-07-31 09:17] LABS: Reticulocytes # 0.08 10^6/uL (0.02-0.10)
[2022-07-31] MEDS: FUROSEMIDE 40 MG/4 ML VIAL IV SCH ×2 (10:11→20:00)
--- NOTE | 2022-07-31 12:13 | XCELERA ---
[id number] \\[id number]
--- NOTE | 2022-07-31 13:06 | Hospitalist Progress Note ---
Date of Service July 31, 2022 Assessment & Plan (1) CHF (congestive heart failure): Plan: Acute on chronic combined systolic and diastolic CHF. Continue intravenous Lasix and Soto catheter. Monitor intake and output. Serial chest x-ray (2) Acute kidney failure: Plan: Acute on chronic kidney disease, stage III. Will monitor intake and output. Serial lab studies (3) Indwelling Soto catheter present: Plan: Chronic suprapubic catheter in place due to neurogenic bladder (4) Type 2 diabetes mellitus with kidney complication, with long-term current use of insulin: Plan: Diabetic diet. Continue insulin. Sliding scale coverage as needed (5) Atrial fibrillation: Plan: Chronic. Rate controlled. Eliquis is on hold until fecal occult blood is determined to be negative. (6) Chronic kidney disease, stage 3: Plan: Acute exacerbation. Will monitor intake and output. Serial lab studies (7) Anemia: Plan: Awaiting fecal occult blood test. Iron and reticulocyte count are normal. Audi remains on hold. She received 1 unit packed red blood cells on admission and will receive another unit of packed red blood cells today, July 31. Serial labs Plan Anticipate eventual discharge to home Admission and Anticipated Discharge Date Admission Date: July 30, 2022 Subjective Alert and oriented. No complaints Review of Systems Review of Systems: Constitutional-no fever or chills ENT-no blurred vision, no double vision, no epistaxis, no sore throat Respiratory-no cough, no wheezing, no shortness of breath Cardiac-no palpitations, no chest pain, no syncope GI-no nausea, vomiting, diarrhea, melena, hematochezia -no urinary retention, no urinary incontinence, no dysuria, no hematuria Musculoskeletal-no joint pain, no muscle tenderness. Generalized weakness Skin-no bruising, no rashes, no pruritus Neuro-no isolated weakness, no paresthesia. Generalized weakness Psych-no depression, no anxiety Physical Exam Physical Exam: General-alert and oriented x3, no fevers, no chills HEENT-head atraumatic and normocephalic, pupils equal and reactive to light, extraocular muscles intact Neck-no lymphadenopathy or thyromegaly, trachea midline Chest-faint bibasilar inspiratory rales. No wheezing. No dullness to percussion Cardiac-regular rate and rhythm, normal S1 and S2 Abdomen-normal bowel sounds, nontender, no hepatosplenomegaly Extremities-no cyanosis, clubbing. Mild bilateral lower extremity edema below the knees Neuro-cranial nerves II through XII intact, motor and sensory function within normal limits, strength symmetrical , no focal deficits Psych-normal affect, normal mood Results & Data Results & Data ([facility]) Vital Signs (Past 12 Hours) Vital Signs Temp Pulse Pulse Resp BP BP Pulse Ox 07/31/22 12:30 36.6 C 50 L 16 137/63 92 07/31/22 11:44 36.6 C 55 L 18 134/66 94 07/31/22 11:10 36.5 C 56 L 19 133/6 L 95 07/31/22 10:40 36.5 C 50 L 18 130/51 L 95 07/31/22 10:25 36.6 C 56 L 16 124/54 L 93 07/31/22 10:07 36.7 C 52 L 16 133/74 92 07/31/22 07:15 47 L 07/31/22 08:04 36.5 C 51 L 19 146/56 H 94 07/31/22 07:15 07/31/22 03:08 49 L 14 92 07/31/22 03:14 36.5 C 51 L 18 132/72 93 07/31/22 02:49 36.4 C L 50 L 18 125/75 93 07/31/22 01:49 36.4 C L 53 L 18 127/56 L 92 07/31/22 01:19 36.4 C L 52 L 18 121/51 L 07/31/22 01:04 36.6 C 57 L 18 133/70 O2 Del Method FiO2 07/31/22 12:30 07/31/22 11:44 07/31/22 11:10 07/31/22 10:40 07/31/22 10:25 07/31/22 10:07 07/31/22 07:15 07/31/22 08:04 Room Air 07/31/22 07:15 Room Air 07/31/22 03:08 21 07/31/22 03:14 07/31/22 02:49 07/31/22 01:49 07/31/22 01:19 07/31/22 01:04 Laboratory Results 07/31/22 05:31 07/31/22 05:31 PG Care Time/CCT Total # of Minutes Spent Total Time Spent with Patient: Total time spent is greater than 50% in coordination of care (as documented) at patient's floor/unit and/or counseling patient: Coding Level of Care Code 13126 Subseq Hosp Care Lvl 3 Diagnoses CHF (congestive heart failure) I50.9 Acute kidney failure N17.9 Indwelling Soto catheter present Z96.0 Type 2 diabetes mellitus with kidney complication, with long-term current use of insulin E11.29; Z79.4 Atrial fibrillation I48.20 Atrial fibrillation type: unspecified chronic Chronic kidney disease, stage 3 N18.30 Chronic kidney disease stage 3 subtype: unspecified whether 3a or 3b Anemia D64.9 (1) Atrial fibrillation Atrial fibrillation type: unspecified chronic Qualified Code(s): I48.20 - Chronic atrial fibrillation, unspecified (2) Chronic kidney disease, stage 3 Chronic kidney disease stage 3 subtype: unspecified whether 3a or 3b Qualified Code(s): N18.30 - Chronic kidney disease, stage 3 unspecified
--- NOTE | 2022-07-31 13:58 | Electrocardiogram Report ---
Test Reason : Blood Pressure : / mmHG Vent. Rate : 061 BPM Atrial Rate : 234 BPM P-R Int : 000 ms QRS Dur : 142 ms QT Int : 486 ms P-R-T Axes : 000 -50 114 degrees QTc Int : 489 ms Atrial fibrillation with a competing junctional pacemaker Left axis deviation Left bundle branch block Abnormal ECG When compared with ECG of 15-OCT-2021 07:38, QRS duration has increased Confirmed by Satya Lindquist ([id number]) on 07/31/2022 1:58:10 PM Referred By: REFERRED SELF Confirmed By:Satya Lindquist
[2022-07-31] MEDS: AMITRIPTYLINE HCL 50 MG TAB PO SCH (19:59)
[2022-07-31 20:03] LABS: Hemoglobin 8.4 g/dl (12.0-16.0)
--- NOTE | 2022-08-01 00:02 | Billing Data ---
Date of Service August 01, 2022 Coding Level of Care Code 34170 Initial Inpt Care Lvl 3
[2022-08-01 06:18] LABS: Basophils # (auto) 0.06 K/uL (0-0.2); Basophils % (auto) 0.9 %; Eosinophils # (auto) 0.18 K/uL (0-0.50); Eosinophils % (auto) 2.7 %; Hematocrit (blood only) 27.3 % (34.1-44.9); Hemoglobin 8.6 g/dl (12.0-16.0); Immature Granulocytes # (auto) 0.04 K/uL (0.00-0.02); Immature Granulocytes % (auto) 0.6 %; Lymphocytes # (auto) 0.69 K/uL (1.2-3.4); Lymphocytes % (auto) 10.4 %; Mean Corpuscular Hemoglobin 27.8 pg (25.0-34.0); Mean Corpuscular Hgb Conc 31.5 g/dL (32.0-36.0); Mean Corpuscular Volume 88.3 fL (80.0-100.0); Monocytes # (auto) 0.56 K/uL (0.24-0.82); Monocytes % (auto) 8.4 %; Neutrophils # (auto) 5.13 K/uL (1.4-6.5); Platelet Count 187 K/uL (130-400); RDW Coefficient of Variation 18.6 % (11.5-14.5); RDW Standard Deviation 60.5 fL (36.4-46.3); Red Blood Count 3.09 M/uL (3.93-5.22); White Blood Count 6.66 K/ul (4.8-10.8)
[2022-08-01 06:51] LABS: Calcium 8.6 mg/dl (8.5-10.1); Creatinine Clr Calc Pharmacy 27.3 ml/min; Est GFR (African American) 25.7 ml/min; Est GFR (Non-African American) 22.1 ml/min; Potassium 3.8 mmol/L (3.5-5.1)
[2022-08-01] MEDS: ROSUVASTATIN CALCIUM 20 MG TAB PO SCH (08:00)
[2022-08-01] MEDS: METOPROLOL SUCC 25MG EXT REL TAB PO SCH (08:00)
[2022-08-01] MEDS: FUROSEMIDE 40 MG/4 ML VIAL IV SCH ×2 (08:00→21:52)
[2022-08-01] MEDS: MAGNESIUM OXIDE 400 MG TAB PO SCH (08:00)
[2022-08-01] MEDS: PANTOprazole 40 MG TAB PO SCH (08:00)
[2022-08-01] MEDS: rOPINIRole HCL 2 MG TABLET PO SCH ×4 (08:00→21:53)
[2022-08-01] MEDS: SPIRONOLACTONE 25 MG TAB PO SCH (08:00)
[2022-08-01] MEDS: allopurinoL 100 MG TAB PO SCH (08:00)
[2022-08-01] MEDS: POTASSIUM CHLORIDE CRTAB 20 MEQ TABCR PO SCH ×2 (08:40→21:53)
[2022-08-01] MEDS: INSULIN ASPART PER UNIT SC SCH ×4 (08:40→21:57)
[2022-08-01] MEDS: APIXABAN 5 MG TABLET PO SCH ×2 (10:55→21:52)
--- NOTE | 2022-08-01 15:42 | Hospitalist Progress Note ---
Date of Service August 01, 2022 Assessment & Plan (1) Anemia: Plan: Improved and stable afterTransfusion. Iron levels are unremarkable.Fecal occult bloodHas not been done. Eliquis has been restarted. Serial labs.No overt GI bleeding (2) CHF (congestive heart failure): Plan: Acute on chronic combined systolic and diastolic CHF. Improving with Lasix diuresis. She is now on room air. Intake and output negative as anticipated. Continue parenteral Lasix until discharge. Known EF of 45% (3) Atrial fibrillation: Plan: Chronic. Rate controlled. Eliquis was placed on hold initially but has been restarted today, August 01. No overt GI bleeding. Iron levels are within normal limits. Telemetry (4) CAD (coronary artery disease): Plan: Stable. Continue current medical management (5) Chronic kidney disease, stage 3: Plan: Creatinine stable at 2.1 with diuresis. Continue to monitor intake and output and serial lab studies. (6) Hypertension: Plan: Stable with current medications (7) Hyperlipidemia: Plan: Low-cholesterol diet. Med management (8) Indwelling Soto catheter present: Plan: Chronic suprapubic catheter in place due to neurogenic bladder. (9) Peripheral arterial disease: Plan: Stable. Continue current medical management (10) Sleep apnea: Plan: Supportive care Plan Continue Lasix diuresis. Hopefully she can go home tomorrow, August 02 Admission and Anticipated Discharge Date Admission Date: July 30, 2022 Subjective Restless legs are main complaint but she is already on high-dose Requip. Repeat chest x-ray today looks better. She is 90% on room air. Eliquis has been restarted. Hemoglobin is stable at 8.6. Iron profile is acceptable. Creatinine stable at 2.1. Intake and output is negative with IV Lasix. Hopefully she can go home tomorrow, August 02 Review of Systems Review of Systems: Constitutional-no fever or chills ENT-no blurred vision, no double vision, no epistaxis, no sore throat Respiratory-no cough, no wheezing, no shortness of breath Cardiac-no palpitations, no chest pain, no syncope GI-no nausea, vomiting, diarrhea, melena, hematochezia -no urinary retention, no urinary incontinence, no dysuria, no hematuria Musculoskeletal-no joint pain, no muscle tenderness Skin-no bruising, no rashes, no pruritus Neuro-no isolated weakness, no paresthesia, no weakness Psych-no depression, no anxiety Physical Exam Physical Exam: General-alert and oriented x3, no fevers, no chills HEENT-head atraumatic and normocephalic, pupils equal and reactive to light, extraocular muscles intact Neck-no lymphadenopathy or thyromegaly, trachea midline Chest-clear to auscultation percussion. No rales wheezing or rhonchi Cardiac-regular rate and rhythm, normal S1 and S2, no murmurs Abdomen-normal bowel sounds, nontender, no hepatosplenomegaly Extremities-minimal peripheral edema. She is nonambulatory chronically Neuro-cranial nerves II through XII intact, motor and sensory function within normal limits, strength symmetrical , no focal deficits Psych-normal affect, normal mood Results & Data Results & [facility] ([facility]) Vital Signs (Past 12 Hours) Vital Signs Temp Pulse Pulse Resp BP Pulse Ox O2 Del Method 08/01/22 11:22 36.4 C L 51 L 17 134/68 92 Room Air 08/01/22 07:55 61 08/01/22 07:55 Room Air 08/01/22 07:22 36.5 C 55 L 20 131/54 L 90 Room Air Laboratory Results 08/01/22 05:43 08/01/22 05:43 PG Care Time/CCT Total # of Minutes Spent Total Time Spent with Patient: Total time spent is greater than 50% in coordination of care (as documented) at patient's floor/unit and/or counseling patient: Coding Level of Care Code 24719 Subseq Hosp Care Lvl 3 Diagnoses Anemia D64.9 Anemia type: unspecified type CHF (congestive heart failure) I50.9 Atrial fibrillation I48.20 Atrial fibrillation type: unspecified chronic CAD (coronary artery disease) I25.10 Coronary Disease-Associated Artery/Lesion type: [place] artery [place] vs. transplanted heart: [place] heart Associated angina: without angina Chronic kidney disease, stage 3 N18.30 Chronic kidney disease stage 3 subtype: unspecified whether 3a or 3b Hypertension I10 Hypertension type: unspecified Hyperlipidemia E78.5 Indwelling Soto catheter present Z96.0 Peripheral arterial disease I73.9 Sleep apnea G47.30 (1) Anemia Anemia type: unspecified type Qualified Code(s): D64.9 - Anemia, unspecified (2) Atrial fibrillation Atrial fibrillation type: unspecified chronic Qualified Code(s): I48.20 - Chronic atrial fibrillation, unspecified (3) CAD (coronary artery disease) Coronary Disease-Associated Artery/Lesion type: [place] artery [place] vs. transplanted heart: [place] heart Associated angina: without angina Qualified Code(s): I25.10 - Atherosclerotic heart disease of [place] coronary artery without angina pectoris (4) Chronic kidney disease, stage 3 Chronic kidney disease stage 3 subtype: unspecified whether 3a or 3b Qualified Code(s): N18.30 - Chronic kidney disease, stage 3 unspecified (5) Hypertension Hypertension type: unspecified Qualified Code(s): I10 - Essential (primary) hypertension
--- NOTE | 2022-08-01 15:56 | XRay Report ---
XR chest 1V portable CLINICAL HISTORY: chf TECHNIQUE: Single frontal radiograph of the chest was obtained. Comparison: Comparison is made to chest radiograph 07/30/[address] chest 09/01/2021 FINDINGS: Median sternotomy wires are unchanged. Cardiomegaly is noted. Prominence and cephalization of the vas culature is seen. Postsurgical changes are again noted in the right lung. No evidence of pleural effu bing or pneumothorax. IMPRESSION: Cardiomegaly with mild pulmonary edema. ACT 112: Negative or not required by law. Electronically signed by: Akhil Juárez M.D. 08/01/2022 3:55 PM
[2022-08-01] MEDS: AMITRIPTYLINE HCL 50 MG TAB PO SCH (21:52)
[2022-08-02 07:30] LABS: Basophils # (auto) 0.06 K/uL (0-0.2); Basophils % (auto) 0.8 %; Eosinophils # (auto) 0.19 K/uL (0-0.50); Eosinophils % (auto) 2.7 %; Hematocrit (blood only) 27.3 % (34.1-44.9); Hemoglobin 8.5 g/dl (12.0-16.0); Immature Granulocytes # (auto) 0.05 K/uL (0.00-0.02); Immature Granulocytes % (auto) 0.7 %; Lymphocytes # (auto) 0.78 K/uL (1.2-3.4); Mean Corpuscular Hemoglobin 27.7 pg (25.0-34.0); Mean Corpuscular Hgb Conc 31.1 g/dL (32.0-36.0); Mean Corpuscular Volume 88.9 fL (80.0-100.0); Mean Platelet Volume 9.1 fL (9.4-12.3); Monocytes # (auto) 0.66 K/uL (0.24-0.82); Monocytes % (auto) 9.3 %; Neutrophils # (auto) 5.32 K/uL (1.4-6.5); Neutrophils % (auto) 75.5 %; Platelet Count 191 K/uL (130-400); RDW Coefficient of Variation 18.2 % (11.5-14.5); RDW Standard Deviation 58.5 fL (36.4-46.3); Red Blood Count 3.07 M/uL (3.93-5.22); White Blood Count 7.06 K/ul (4.8-10.8)
[2022-08-02 07:52] LABS: Calcium 8.8 mg/dl (8.5-10.1); Creatinine Clr Calc Pharmacy 27.7 ml/min; Est GFR (African American) 26.1 ml/min; Est GFR (Non-African American) 22.5 ml/min
[2022-08-02] MEDS: INSULIN ASPART PER UNIT SC SCH ×4 (08:30→20:45)
[2022-08-02] MEDS: APIXABAN 5 MG TABLET PO SCH ×2 (08:31→20:51)
[2022-08-02] MEDS: rOPINIRole HCL 2 MG TABLET PO SCH ×4 (08:31→20:51)
[2022-08-02] MEDS: allopurinoL 100 MG TAB PO SCH (08:31)
[2022-08-02] MEDS: FUROSEMIDE 40 MG/4 ML VIAL IV SCH ×2 (08:32→20:51)
[2022-08-02] MEDS: PANTOprazole 40 MG TAB PO SCH (08:32)
[2022-08-02] MEDS: ROSUVASTATIN CALCIUM 20 MG TAB PO SCH (08:32)
[2022-08-02] MEDS: MAGNESIUM OXIDE 400 MG TAB PO SCH (08:32)
[2022-08-02] MEDS: METOPROLOL SUCC 25MG EXT REL TAB PO SCH (08:32)
[2022-08-02] MEDS: SPIRONOLACTONE 25 MG TAB PO SCH (08:32)
[2022-08-02] MEDS: POTASSIUM CHLORIDE CRTAB 20 MEQ TABCR PO SCH ×2 (08:39→20:59)
--- NOTE | 2022-08-02 12:29 | Hospitalist Progress Note ---
Date of Service August 02, 2022 Assessment & Plan (1) Anemia: Plan: Hgb improved and stable after transfusion. Iron levels are unremarkable. Eliquis has been restarted on 08/01 No acute blood loss concern at this time (2) CHF (congestive heart failure): Plan: Acute on chronic combined systolic and diastolic CHF. Improving with Lasix diuresis- 40 mg IV BID, also spironolactone 25 mg daily. She is now on room air. Intake and output negative as anticipated. Continue parenteral Lasix for now- transition to oral pending response, Cr 2.07. Known EF of 45% (3) Atrial fibrillation: Plan: Chronic. Rate controlled. Eliquis was placed on hold initially but has been restarted 08/01. No overt GI bleeding. Iron levels are within normal limits. Telemetry (4) CAD (coronary artery disease): Plan: Stable. Continue current medical management -Metoprolol 25 mg daily, rosuvastatin 40 mg daily (5) Chronic kidney disease, stage 3: Plan: Creatinine stable at 2.07 with diuresis. Continue to monitor intake and output and serial lab studies. (6) Hypertension: Plan: Stable with current medications (7) Hyperlipidemia: Plan: Low-cholesterol diet. Med management (8) Indwelling Soto catheter present: Plan: Chronic suprapubic catheter in place due to neurogenic bladder. (9) Peripheral arterial disease: Plan: Stable. Continue current medical management (10) Sleep apnea: Plan: Supportive care Admission and Anticipated Discharge Date Admission Date: July 30, 2022 Supervising Physician Co-Signing Physician Notes I personally examined the patient and verified all jimenez points of history and exam, discussed case, and agree with decision making with Dr Alvarenga. Continues to feel better but still not good. Still a little bit of breathing seeming harder than she would expected to be. Would like to get up and moving as best she can. She does not really walk much at home but is able to transfer and pivot. Vitals noted, in general she is awake and alert pleasant no distress. HEENT normocephalic atraumatic mucous membranes moist. Lungs show faint bibasilar rales may be a third of the way up. No rhonchi no wheezes good effort. Acute on chronic combined systolic and diastolic CHFcontinue diuresis. CKDcontinue to follow creatinine. Weakness and chronic ambulatory dysfunctionPT/OT eval and treat. DVT prophylaxisEliquis Subjective No acute events overnight. Pt states her breathing is much better, still feels swollen in legs but not as significantly. Still complaining of restless legs which is a chronic issue for her. Review of Systems Review of Systems: Per subjective Physical Exam Physical Exam: General- well appearing, no acute distress HEENT-head atraumatic and normocephalic, pupils equal and reactive to light, extraocular muscles intact Neck-no lymphadenopathy or thyromegaly, trachea midline Chest- largely clear with mild crackles at bases. No rales wheezing or rhonchi Cardiac- irregular rhythm normal rate, normal S1 and S2, no murmurs Abdomen- normal bowel sounds, nontender, no hepatosplenomegaly Extremities- 1+ peripheral edema. She is nonambulatory chronically Neuro-cranial nerves II through XII intact, motor and sensory function within normal limits, strength symmetrical , no focal deficits Psych-normal affect, normal mood Results & Data Results & Data ([facility]) Vital Signs (Past 12 Hours) Vital Signs Temp Pulse Resp BP Pulse Ox O2 Del Method 08/02/22 11:30 36.5 C 78 22 120/73 97 08/02/22 08:00 CPAP 08/02/22 08:00 36.7 C 61 22 138/71 97 08/02/22 03:49 36.6 C 50 L 22 149/79 H 93 Room Air Resident Activity Tracking Resident Involvement: Resident Care Provided Care Provided: Adult Hospital Medicine (1) Chronic kidney disease, stage 3 Chronic kidney disease stage 3 subtype: unspecified whether 3a or 3b Qualified Code(s): N18.30 - Chronic kidney disease, stage 3 unspecified (2) CAD (coronary artery disease) Associated angina: without angina Coronary Disease-Associated Artery/Lesion type: [place] artery [place] vs. transplanted heart: [place] heart Qualified Code(s): I25.10 - Atherosclerotic heart disease of [place] coronary artery without angina pectoris (3) Anemia Anemia type: unspecified type Qualified Code(s): D64.9 - Anemia, unspecified (4) Atrial fibrillation Atrial fibrillation type: unspecified chronic Qualified Code(s): I48.20 - Chronic atrial fibrillation, unspecified (5) Hypertension Hypertension type: unspecified Qualified Code(s): I10 - Essential (primary) hypertension
[2022-08-02] MEDS: AMITRIPTYLINE HCL 50 MG TAB PO SCH (20:50)
--- NOTE | 2022-08-02 22:07 | Billing Data ---
Date of Service August 02, 2022 Coding Level of Care Code 69156 Subseq Hosp Care Lvl 3
[2022-08-03 06:03] LABS: Basophils # (auto) 0.07 K/uL (0-0.2); Basophils % (auto) 0.9 %; Eosinophils # (auto) 0.21 K/uL (0-0.50); Eosinophils % (auto) 2.8 %; Hematocrit (blood only) 28.2 % (34.1-44.9); Hemoglobin 8.7 g/dl (12.0-16.0); Immature Granulocytes # (auto) 0.04 K/uL (0.00-0.02); Immature Granulocytes % (auto) 0.5 %; Lymphocytes # (auto) 0.79 K/uL (1.2-3.4); Lymphocytes % (auto) 10.4 %; Mean Corpuscular Hemoglobin 27.1 pg (25.0-34.0); Mean Corpuscular Hgb Conc 30.9 g/dL (32.0-36.0); Mean Corpuscular Volume 87.9 fL (80.0-100.0); Mean Platelet Volume 8.9 fL (9.4-12.3); Monocytes # (auto) 0.68 K/uL (0.24-0.82); Monocytes % (auto) 8.9 %; Neutrophils # (auto) 5.83 K/uL (1.4-6.5); Neutrophils % (auto) 76.5 %; Platelet Count 205 K/uL (130-400); RDW Standard Deviation 58.4 fL (36.4-46.3); Red Blood Count 3.21 M/uL (3.93-5.22); White Blood Count 7.62 K/ul (4.8-10.8)
[2022-08-03 06:17] LABS: BUN Creatinine Ratio 29.1 (10-20); Calcium 8.8 mg/dl (8.5-10.1); Creatinine Clr Calc Pharmacy 25.4 ml/min; Est GFR (African American) 23.4 ml/min; Est GFR (Non-African American) 20.2 ml/min; Potassium 4.3 mmol/L (3.5-5.1)
[2022-08-03] MEDS: rOPINIRole HCL 2 MG TABLET PO SCH ×4 (08:26→20:21)
[2022-08-03] MEDS: MAGNESIUM OXIDE 400 MG TAB PO SCH (08:27)
[2022-08-03] MEDS: PANTOprazole 40 MG TAB PO SCH (08:27)
[2022-08-03] MEDS: ROSUVASTATIN CALCIUM 20 MG TAB PO SCH (08:27)
[2022-08-03] MEDS: FUROSEMIDE 40 MG/4 ML VIAL IV SCH (08:27)
[2022-08-03] MEDS: allopurinoL 100 MG TAB PO SCH (08:27)
[2022-08-03] MEDS: SPIRONOLACTONE 25 MG TAB PO SCH (08:27)
[2022-08-03] MEDS: APIXABAN 5 MG TABLET PO SCH ×2 (08:27→20:20)
[2022-08-03] MEDS: METOPROLOL SUCC 25MG EXT REL TAB PO SCH (08:28)
[2022-08-03] MEDS: POTASSIUM CHLORIDE CRTAB 20 MEQ TABCR PO SCH ×2 (08:30→20:20)
[2022-08-03] MEDS: INSULIN ASPART PER UNIT SC SCH ×4 (08:45→20:28)
--- NOTE | 2022-08-03 13:59 | Hospitalist Progress Note ---
Date of Service August 03, 2022 Assessment & Plan (1) Anemia: Plan: Hgb improved and stable after transfusion. Iron levels are unremarkable. Eliquis has been restarted on 08/01 No acute blood loss concern at this time (2) CHF (congestive heart failure): Plan: -Acute on chronic combined systolic and diastolic CHF. Improving with Lasix diuresis -Appears dry on examination without JVD or lower extremity edema. Switch Lasix IV twice daily to 40 mg once daily. This closely resembles her home dosing -Bump in creatinine now 2.27. Reduce Lasix as above recheck BMP in the morning. -Known EF of 45% (3) Hyponatremia: Plan: - Sodium dropped to 126 this morning -Likely secondary to overdiuresis with low-sodium diet -Reduce Lasix as above -Recheck BMP in the morning (4) Atrial fibrillation: Plan: Chronic. Rate controlled. Eliquis was placed on hold initially but has been restarted 08/01. No overt GI bleeding. Iron levels are within normal limits. Telemetry (5) CAD (coronary artery disease): Plan: Stable. Continue current medical management -Metoprolol 25 mg daily, rosuvastatin 40 mg daily (6) Chronic kidney disease, stage 3: Plan: -Bump in creatinine as above currently at 2.27. -Recheck BMP in a.m. (7) Hypertension: Plan: Stable with current medications (8) Hyperlipidemia: Plan: Low-cholesterol diet. Med management (9) Indwelling Soto catheter present: Plan: Chronic suprapubic catheter in place due to neurogenic bladder. (10) Peripheral arterial disease: Plan: Stable. Continue current medical management (11) Sleep apnea: Plan: Supportive care Diet: Heart healthy, carb consistent, easy to chew DVT prophylaxis: Eliquis Disposition: MedSurg with telemetry CODE STATUS: Conditional code (does not wish to have defibrillation) Admission and Anticipated Discharge Date Admission Date: July 30, 2022 Supervising Physician Co-Signing Physician Notes I personally examined the patient and verified all jimenez points of history and exam, discussed case, and agree with decision making with Dr Melvin feels pretty good overall. thinking home tomorrow Vitals noted, in general she is awake and alert pleasant no distress. HEENT normocephalic atraumatic mucous membranes moist. Lungs show faint bibasilar rales may be a third of the way up. No rhonchi no wheezes good effort. Acute on chronic combined systolic and diastolic CHFappears diuresed. hold IV lasix. CKDcontinue to follow creatinine. Weakness and chronic ambulatory dysfunctionPT/OT eval and treat. DVT prophylaxisEliquis hopefully home tomorrow Subjective Patient seen at bedside this morning. No acute events reported overnight. Patient without bloody stools overnight. Seems to be doing overall well but rightfully frustrated that she is still in the hospital. Understanding that she still requires care but not on oxygen currently and breathing without difficulty. Reports that her ankle swelling has improved too. No other acute complaints at this time Review of Systems Review of Systems: All systems reviewed & are unremarkable except as noted in HPI & below Physical Exam Constitutional: WD/WN, vitals as above + obese Eyes: + scleral abnormality and + anicteric sclerae Neck: normal visual inspection Respiratory: normal respiratory effort; no respiratory distress Auscultation: + wheezes Cardiovascular: RRR, no murmur, no edema Vessels: no JVD Extremities: no edema Gastrointestinal (Abdomen): Inspection/Auscultation: normal bowel sounds Percussion/Palpation: abdomen soft; abdomen nontender There is a red rash underneath her pannus surrounding her suprapubic catheter. Musculoskeletal: Head/Neck/Chest: normocephalic and head atraumatic Skin: + rash Neurologic: moves all extremities Psychiatric: A+Ox3, euthymic affect Results & Data Results & Data ([facility]) Vital Signs (Past 12 Hours) Vital Signs Temp Pulse Pulse Resp BP BP Pulse Ox 09/02/22 12:00 36.8 C 51 L 133/54 L 93 08/03/22 08:00 36.5 C 42 L 20 132/71 93 08/03/22 07:33 54 L 08/03/22 07:33 08/03/22 03:32 36.6 C 50 L 20 131/71 93 O2 Del Method 08/03/22 12:00 Room Air 08/03/22 08:00 Room Air 08/03/22 07:33 08/03/22 07:33 Room Air 08/03/22 03:32 Room Air (1) Chronic kidney disease, stage 3 Chronic kidney disease stage 3 subtype: unspecified whether 3a or 3b Qualified Code(s): N18.30 - Chronic kidney disease, stage 3 unspecified (2) CAD (coronary artery disease) Associated angina: without angina Coronary Disease-Associated Artery/Lesion type: [place] artery [place] vs. transplanted heart: [place] heart Qualified Code(s): I25.10 - Atherosclerotic heart disease of [place] coronary artery without angina pectoris (3) Anemia Anemia type: unspecified type Qualified Code(s): D64.9 - Anemia, unspecified (4) Atrial fibrillation Atrial fibrillation type: unspecified chronic Qualified Code(s): I48.20 - Chronic atrial fibrillation, unspecified (5) Hypertension Hypertension type: unspecified Qualified Code(s): I10 - Essential (primary) hypertension
[2022-08-03] MEDS: ACETAMINOPHEN 325 MG TAB PO PRN (14:20)
--- NOTE | 2022-08-03 18:34 | Billing Data ---
Date of Service August 03, 2022 Coding Level of Care Code 22037 Subseq Hosp Care Lvl 2
[2022-08-03] MEDS: AMITRIPTYLINE HCL 50 MG TAB PO SCH (20:20)
[2022-08-04 07:43] LABS: Hematocrit (blood only) 26.8 % (34.1-44.9); Hemoglobin 8.4 g/dl (12.0-16.0); Mean Corpuscular Hemoglobin 27.3 pg (25.0-34.0); Mean Corpuscular Hgb Conc 31.3 g/dL (32.0-36.0); Platelet Count 198 K/uL (130-400); RDW Coefficient of Variation 17.6 % (11.5-14.5); RDW Standard Deviation 56.2 fL (36.4-46.3); Red Blood Count 3.08 M/uL (3.93-5.22); White Blood Count 6.97 K/ul (4.8-10.8)
[2022-08-04 08:04] LABS: BUN Creatinine Ratio 31.4 (10-20); Calcium 8.7 mg/dl (8.5-10.1); Creatinine Clr Calc Pharmacy 27.8 ml/min; Est GFR (African American) 26.1 ml/min; Est GFR (Non-African American) 22.5 ml/min; Potassium 4.4 mmol/L (3.5-5.1)
[2022-08-04] MEDS: INSULIN ASPART PER UNIT SC SCH ×2 (08:56→13:59)
[2022-08-04] MEDS ORDERED: FUROSEMIDE 40 MG/4 ML VIAL IV SCH (09:00)
[2022-08-04] MEDS: APIXABAN 5 MG TABLET PO SCH (09:05)
[2022-08-04] MEDS: allopurinoL 100 MG TAB PO SCH (09:05)
[2022-08-04] MEDS: MAGNESIUM OXIDE 400 MG TAB PO SCH (09:05)
[2022-08-04] MEDS: PANTOprazole 40 MG TAB PO SCH (09:06)
[2022-08-04] MEDS: METOPROLOL SUCC 25MG EXT REL TAB PO SCH (09:06)
[2022-08-04] MEDS: SPIRONOLACTONE 25 MG TAB PO SCH (09:06)
[2022-08-04] MEDS: rOPINIRole HCL 2 MG TABLET PO SCH ×2 (09:06→14:00)
[2022-08-04] MEDS: ROSUVASTATIN CALCIUM 20 MG TAB PO SCH (09:06)
[2022-08-04] MEDS: POTASSIUM CHLORIDE CRTAB 20 MEQ TABCR PO SCH (09:16)
--- NOTE | 2022-08-04 17:08 | Discharge Summary ---
Date of Service August 04, 2022 Admission HPI Per Admitting Provider 76yo female with a history of atrial fibrillation (on anticoagulation), CHF, HTN, HLD, CAD, IDDM2, CKD3, RLS, JASON (on CPAP), gout, neurogenic bladder (with chronic suprapubic catheter), and GERD presents with SOB, cough, and increased LE edema. Symptoms have been going on for about a week. No clear trigger. Patient has been taking her home lasix with some improvement. Patient does note an episode of dark/tarry stools about a month ago but hasn't noticed this again recently. Patient denies fever, chills, headache, vision changes, CP, palpitations, abdominal pain, nausea, vomiting, lightheadedness, dizziness, or other symptoms. Denies recent illness and recent travel. Upon arrival, vitals were notable for mild intermittent bradycardia (low of 54); BP not elevated, no tachypnea, patient afebrile, spO2 adequate on room air. Initial labs were notable for mild anemia (7.3), mild hyponatremia (132), elevated creatinine (2.1, baseline ~1.7), elevated INR (1.2), elevated hsTroponin (28.7), and mildly elevated BNP (168). LFTs not elevated, lipase not elevated, TSH wnl. In the ED, patient was given lasix 40mg IV (x1), ropinirole 5mg PO (x1), and acetaminophen 1000mg IV (x1). Surrogate decision-maker in case of an emergency: Jesse Turnerkelsey (cell: [phone]) or daughter Kalie Alfaro (cell: [phone]) Principal Diagnosis CHF acute on chronic HFpEF/diastolic failuremediated by severe LVH, mild valvular disease, CKD, and pulmonary hypertension) Discharge Exam General she is awake and alert pleasant no distress. HEENT normocephalic atraumatic mucous membranes moist. Lungs clear to auscultation bilaterally no rales rhonchi or wheeze with good effort. Skin shows her right heel with a small soft spot but no open wound. No surrounding erythema. Discharge Data Allergies Allergy/AdvReac Type Severity Reaction Status Date / Time metoclopramide [From Reglan] Allergy Mild "went Verified 07/30/22 22:03 crazy" NSAIDS (Non-Steroidal Allergy Unknown UNK? Verified 07/30/22 22:03 Anti-Inflamma DENIES SOB. capsaicin AdvReac Severe SHORTNESS Verified 07/30/22 22:03 OF BREATH diclofenac AdvReac Severe SHORTNESS Verified 07/30/22 22:03 OF BREATH Consultations 07/30/22 21:12 ED Decision to Admit Stat Hospital Course (1) Anemia: Hgb improved and stable after transfusion. Iron levels are unremarkable. Eliquis has been restarted on 08/01 No acute blood loss concern at this timeOutpatient follow-up and further work- up if necessary. (2) CHF (congestive heart failure): -Acute on chronic diastolic (HFpEF) echo w EF 55-60%, severe LVH, severe pulm HTN, mild /MR/TR -Probably also chronic kidney disease plays a role -Discussed sodium restriction -Was diuresed, feels better, labs suggest she is about as dry as she can safely be diuresed inpatientstable for home. Home dose of Lasix. Outpatient follow- up/outpatient labs. (3) Hyponatremia: - Mild, asymptomatic, diuretic related. Outpatient basic metabolic panel. (4) Atrial fibrillation: Rate controlled, anticoagulated (5) CAD (coronary artery disease): Stable. No symptoms continue current medical management -Metoprolol 25 mg daily, rosuvastatin 40 mg daily (6) Chronic kidney disease, stage 3: Tere as expected with diuresis. Now back around 2. Outpatient follow-up. Labs next week. (7) Hypertension: Stable with current medications (8) Hyperlipidemia: Low-cholesterol diet. Med management (9) Indwelling Soto catheter present: Chronic suprapubic catheter in place due to neurogenic bladder. (10) Peripheral arterial disease: Stable. Continue current medical management (11) Sleep apnea: Has CPAPhas not been using it. Discussed how this plays a significant role in her pulmonary hypertension. To resume, follow-up with sleep medicine. Plan Safe/stable for home Total Time Total Time Spent Total Time Spent (In Minutes): Less than 30 Discharge Plan Discharge Items Patient Disposition: Home - Self-Care Reason For Visit: ANEMIA, CHF EXACERBATION Discharge Diagnosis: CHF exacerbation Activity: Resume your previous activity Non-emergency contact: Primary Care Provider Call non-emergency contact if: you have any medication questions and your symptoms worsen Follow-up/Referrals: Jaquelin Crowley MD [Primary Care Provider] - Diet: Low Sodium (2gm) Addtl Attending Provider Instructions: Fortunately we have pulled a lot of fluid off, and your lab work suggest we have you about as dry as we can. To that end, it appears safe to get you home. Pasted in below are rather lengthy, but hopefully helpful, instructions as it relates to congestive heart failure and fluid retention. Like we discussed. Fo r most people a huge part of "why now" for fluid retention/hospital admission comes down to accidental sodium intake, that which then leads to fluid retention. Likewise with you, given that your echocardiogram showed pulmonary hypertension (high blood pressure in your lungs), not treating his sleep apnea may be playing a bit of a role in this as well. When we do not treat sleep apnea, and are ox ygen numbers drop/we create a vacuum in our chest as we try to inhale against a closed airwaythe blood vessels in her lungs can start to get thicker making it harder to get oxygenation. I would resume your CPAP at home tonight. And then I would definitely have you follow-up with Dr. Liu to make sure the settings are still good. If you are having trouble getting used to the mask, remember t here are multiple masks and nose pieces available, and generally as long as somebody is trying and realizing that they have to wear it, pretty much everyone find something that will work for them. Keep pressure off of that soft spot on your heelthis is probably most easily accomplished by being upright in a chair is much as you can, but whenever you are in bed definitely keep a pillow under it or some other means of not having it set on pressure. have labwork: CBC, BMP - done next week Congestive Heart Failure: Discharge Instructions Congestive Heart Failure essentially means your heart is able to have a "traffic jam" of fluid that backs up into your lungs. Fluid in lungs then blocks up breathing space making you feel short of breath. In the hospital, our job is to get the fluid off so that you are able to breathe better, and then get you back on track with medication and lifestyle adjustments to keep the traffic jam from happening again. Salt (Sodium) The vast majority of people admitted to the hospital with fluid back up into the lungs get there because of too much salt in their diet. The way our kidneys work: when you take a small amount of sodium, your kidneys hold onto a small amount of water. When you take a large amount of sodium, your kidneys hold onto a large amount of water. When this happens, your blood vessels get flooded, your heart gets overfilled, and the fluid backs up into your lungs. Most people know to avoid the salt shaker, but sodium is in almost anything prepackaged/prepared, as a preservative or as a flavoring agent. Most of the people we take care of who are here with congestive heart failure caused by too much sodium do not use a salt shaker at all. Get into the habit of looking at food labels, so you can see how much sodium is in the foods you eat. The most important number to look at is how much sodium is in each serving. But also notice the size of a serving. Food [employer] will frequently make a serving size so tiny that it does not look like there is much sodium per serving, but a normal person might eat 3 or 4 servings of the food and take in a lot more sodium than they realized. Keep a "budget" of how much sodium you take in in each day. Most people stay out of trouble and stay out of the hospital as long as they stay "under budget". The majority of congestive heart failure patients do well if they take less than 2000 mg of sodium a day. Because our kidneys retain water based on how much sodium they are seeing in any given moment, it is also important to stay at less than about 500 mg in any given meal. This is because even if you stayed at less than 2000 mg of sodium, but ate it all at once, your kidneys would retain fluid at a rate as though you are taking in much more sodium than you actually are. Occasionally your doctor may specifically recommend restricting even further (such as less than 1500mg per day) so if you have been told to be even stricter with sodium, please follow that advice. -Following How You Are Doing (Wet Versus Dry) Because managing congestive heart failure is an ongoing process, it is very important to learn how to follow your signs and symptoms and track how you are doing at home. This will allow you to catch problems before they become a big deal. In general, as your health care team, we look at managing congestive heart failure chronically as a balance of being "wet" (flooded with fluid) versus being "dry" (dehydrated from treatment). Wet - signs of fluid retention that would warrant further evaluation: Check your weight daily. If your weight goes up by more than 2 pounds in 1 day, it is almost certainly fluid related. This should warrant further thought, and/or a call to your doctor Follow your breathingmost of the time, early on when fluid backs up into your lungs, you will first start to notice shortness of breath when walking, or when lying flat. If you notice either of these, this should warrant further thought, and/or a call to your doctor If you notice both an increase in weight and worsening breathing, that definitely warrants getting seen as soon as possible "Dry"while the goal of managing the disease is to keep you from getting "wet, the medications can sometimes cause a degree of dehydration. Most people with congestive heart failure need frequent lab work (basic metabolic panel). Generally when there has been a change in diuretic dosing (a change in the water pill) or any other major changes, lab work should be followed closely and more frequently afterwards. This is because lab work will frequently show early signs of dehydration before you start to feel bad. Frequent symptoms of being dehydrated include: feeling weak and lightheaded, having lower blood pressures, making less urine than usual, or having a very dry mouth. If you notice any of these signs/symptoms, and you are not due for lab work, it would be quite reasonable to call your doctor to see if lab work or a visit could be arranged. Heart Failure Management Checklist: Limit Salt (Sodium) Intake to 2000mg (2g) per day and 500mg (0.5g) per meal Check weight daily (in same clothes, without shoes) every morning Use the provided chart to enter your weight and salt intake for the day Are you too wet? If you gained 2lb or more - make sure to take your water pill If your breathing is not good (you are more short of breath than usual) call your doctor regardless of weight change If you gained 2lb or more and you are short of breath, see your doctor or come to the emergency room Are you too dry? If you feel weak or lightheaded, have lower blood pressures, make less urine than usual, or have a very dry mouth. Call your doctor Pending Studies at Discharge: No Stand-Alone Forms: My [facility] [place], Smoking Cessation Medications and DC Order Prescriptions: Continued (DME) insulin syringe-needle U-100 [CareTouch Insulin Syringe] 1 mL 30 gauge x 5/16 syringe See Dose Instructions .ROUTE .MEDSUPPLY Qty: 300 5RF Dose Instruction: As directed Rx Instructions: As directed (DME) lancets [BD Ultra Fine Lancets] 33 gauge misc See Rx Instructions .ROUTE .MEDSUPPLY Qty: 200 5RF Rx Instructions: Test blood sugars four times a day (DME) blood-glucose meter [True Metrix Glucose Meter] Mis See Rx Instructions .ROUTE .MEDSUPPLY Qty: 1 0RF Rx Instructions: Test blood sugars four times a day (DME) True Metrix Glucose Test Strip Strip See Rx Instructions .ROUTE .MEDSUPPLY Qty: 200 5RF Rx Instructions: Test blood sugars four times a day (DME) FreeStyle Tomas 14 Day Sensor Kit See Rx Instructions .Route Qty: 6 3RF Rx Instructions: Change sensor every 14 days amitriptyline 50 mg tablet 50 mg PO HS Qty: 90 3RF Eliquis 5 mg tablet 5 mg PO BID Qty: 180 1RF Hold Instructions: per hospital visit ferrous sulfate 325 mg (65 mg iron) tablet 325 mg PO DAILY Qty: 90 3RF potassium chloride 20 mEq tablet,ER particles/crystals 20 meq PO BID Qty: 60 5RF hydralazine 25 mg tablet 25 mg PO TID Qty: 90 5RF Rx Instructions: TAKE 1 TABLET BY MOUTH 3 TIMES DAILY ropinirole 5 mg tablet 5 mg PO QID Qty: 270 3RF Levemir U-100 Insulin 100 unit/mL solution 35 unit subcut BID 90 Days Qty: 63 3RF metoprolol succinate 25 mg tablet extended release 24 hr 25 mg PO QAM Qty: 90 1RF allopurinol [Zyloprim] 100 mg tablet 100 mg PO QAM Qty: 90 1RF insulin aspart U-100 [Novolog U-100 Insulin aspart] 100 unit/mL solution See Rx Instructions SQ QID Qty: 60 11RF Rx Instructions: inject 35 units at breakfast , at lunch and dinner 35 at bedtime subcut four times daily plus sliding scale TDD 200 units pantoprazole 40 mg tablet,delayed release (DR/EC) 40 mg PO DAILY Qty: 90 1RF albuterol sulfate [Ventolin HFA] 90 mcg/actuation HFA aerosol inhaler 1 - 2 inh inhalation Q6H PRN (Reason: shortness of breath) Qty: 18 0RF nitroglycerin [Nitrostat] 0.4 mg tablet, sublingual 0.4 mg SL UD PRN (Reason: Chest Pain) Qty: 25 0RF spironolactone 25 mg tablet 25 mg PO QAM Qty: 90 3RF furosemide [Lasix] 40 mg tablet 40 mg PO .COMPLEX Rx Instructions: 40 mg orally take 40 mg bid and 3 days a week take one extra tab; magnesium chloride 64 mg tablet,delayed release (DR/EC) 64 mg PO TID acetaminophen 325 mg capsule 650 mg PO TID MDD 10 tabs PRN (Reason: pain (scale score 4-6)) cholecalciferol (vitamin D3) 125 mcg (5,000 unit) capsule 125 mcg PO QAM rosuvastatin 40 mg tablet 40 mg PO DAILY Discharge Orders: Discharge Order (Routine); Ordered 08/04/22 Ordered By: Mannie Trujillo/Other Patient Handouts: Managing Type 2 Diabetes Admission Data Admit Date/Time: 07/30/22 22:06 Attending Provider: Mannie Scott Admit Provider: Aaron Dye Primary Care Provider: Jaquelin Crowley V. Other Providers: Nba Beebe ; Derrick Doss Other Interventions: Discharge Summary Assessment (RN) Last Done: 08/04/22 14:07 Coding Level of Care Code D/C DAY MANAGEMENT <30 MINS Diagnoses Anemia D64.9 Anemia type: unspecified type CHF (congestive heart failure) I50.9 Hyponatremia E87.1 Atrial fibrillation I48.20 Atrial fibrillation type: unspecified chronic CAD (coronary artery disease) I25.10 Coronary Disease-Associated Artery/Lesion type: [place] artery [place] vs. transplanted heart: [place] heart Associated angina: without angina Chronic kidney disease, stage 3 N18.30 Chronic kidney disease stage 3 subtype: unspecified whether 3a or 3b Hypertension I10 Hypertension type: unspecified Hyperlipidemia E78.5 Indwelling Soto catheter present Z96.0 Peripheral arterial disease I73.9 Sleep apnea G47.30
--- NOTE | 2022-08-06 11:26 | Electrocardiogram Report ---
Test Reason : Blood Pressure : / mmHG Vent. Rate : 047 BPM Atrial Rate : 047 BPM P-R Int : 000 ms QRS Dur : 136 ms QT Int : 486 ms P-R-T Axes : 000 -56 072 degrees QTc Int : 430 ms Junctional rhythm Non-specific intra-ventricular conduction delay Abnormal ECG Confirmed by El Duggan ([id number]) on 08/06/2022 11:25:52 AM Referred By: REFERRED SELF Confirmed By:Andrea Duggan
== END 2022-08-04 14:47 | disposition home or self-care (01) | DRG 291 ==
LOC: ED 17:23 → 4W 22:06 → SUATTDRO 22:06 → 4W 23:34

== ENCOUNTER 2022-08-08 12:46 | Inpatient (IN) ==
--- NOTE | 2022-08-08 14:16 | Emergency Department Note ---
History of Present Illness General Chief complaint: Shortness of Breath/Dyspnea Stated complaint: CARDIAC SX Time Seen by Provider: 08/08/22 13:29 History of Present Illness This is a 76-year-old female with a history of CHF, CKD stage III, type 2 diabetes, atrial fibrillation on Eliquis, pulmonary hypertension, obesity, Graves' disease, neurogenic bladder, sleep apnea, who presents via EMS from [facility] for dyspnea, lower extremity edema, worse on the right than the left, leg pain worse on the right than the left, cough. The symptoms have progressed over the past few days after being discharged from this facility on 08/04/2022. She was discharged with acute on chronic HFpEF/diagnostic heart failuremediated by severe LVH, pulmonary hypertension, mild valvular disease, and CKD. See prior inpatient notes for further details. Over the past few days, she states that her lower extremities have become much more swollen especially on the right side, and painful. Normally she does not have much pain in her legs with swelling, but she also states that they are now more weak and she cannot walk because of how weak her legs are. She also feels more short of breath at rest and endorses a cough over the past few days. She is still sleeping on 1 pillow (no oxygen at night although does intermittently use a CPAP machine) but does endorse feeling more short of breath when laying flat. Per EMS, patient's oxygen was at 91% on room air and she was placed on oxygen via nasal cannula. Her urine output has been a little manager gas than it was in the hospital, but her catheter appears to be working appropriately. She has been taking and being administered her medications at rehab as prescribed. She is unsure if she has been adhering to a sodium restricted diet. She denies any fevers, sore throat, congestion, nausea, vomiting, abdominal pain, chest pain, lightheadedness, or dizziness. Patient is accompanied by her daughter Kalie and her at bedside after initial history and examination was performed. Home Medications Medication Instructions Recorded Confirmed Type Calcium Carb-Mag Cl 112mg-64mg 1 tab PO TID 08/08/22 08/08/22 History acetaminophen 325 mg tablet 650 mg PO Q4 PRN PAIN 1-3 SCALE 08/08/22 08/08/22 History (Tylenol) albuterol sulfate 90 mcg/actuation 1 puff inhalation Q6 PRN Shortness 08/08/22 08/08/22 History aerosol inhaler (Ventolin HFA) Of Breath Or Wheezing allopurinol 100 mg tablet 100 mg PO DAILY 08/08/22 08/08/22 History amitriptyline 50 mg tablet 50 mg PO DAILY 08/08/22 08/08/22 History amlodipine 5 mg tablet 5 mg PO DAILY 08/08/22 08/08/22 History apixaban 5 mg tablet (Eliquis) 5 mg PO Q12 08/08/22 08/08/22 History atorvastatin 40 mg tablet 80 mg PO HS 08/08/22 08/08/22 History cholecalciferol (vitamin D3) 125 125 mcg PO DAILY 08/08/22 08/08/22 History mcg (5,000 unit) tablet (Vitamin D3) docusate sodium 100 mg capsule 100 mg PO BID 08/08/22 08/08/22 History hydralazine 25 mg tablet 25 mg PO Q8 08/08/22 08/08/22 History insulin glargine 100 unit/mL 35 unit subcut BID 08/08/22 08/08/22 History subcutaneous solution insulin regular human 100 unit/mL 1 sliding scale dose subcut 08/08/22 08/08/22 History injection solution (Humulin R USEASDIRECTD Regular U-100 Insulin) magnesium hydroxide 400 mg/5 mL 0 ml PO DAILY PRN Constipation 08/08/22 08/08/22 History oral suspension (Milk of Magnesia) metoprolol succinate 25 mg 25 mg PO DAILY 08/08/22 08/08/22 History tablet,extended release 24 hr nitroglycerin 0.4 mg sublingual 0.4 mg sublingual DIRECTED PRN 08/08/22 08/08/22 History tablet (Nitrostat) Chest Pain pantoprazole 40 mg tablet,delayed 40 mg PO DAILY 08/08/22 08/08/22 History release polyethylene glycol 3350 17 gram 17 g PO DAILY PRN Constipation 08/08/22 08/08/22 History oral powder packet (Miralax) ropinirole 5 mg tablet 5 mg PO QID 08/08/22 08/08/22 History sennosides 8.6 mg-docusate sodium 1 tab-cap PO .QLUNCH PRN 08/08/22 08/08/22 History 50 mg tablet (Senokot-S) Constipation Allergies Allergy/AdvReac Type Severity Reaction Status Date / Time metoclopramide [From Reglan] Allergy Mild "went Verified 08/08/22 17:51 crazy" NSAIDS (Non-Steroidal Allergy Unknown UNK? Verified 08/08/22 17:51 Anti-Inflamma DENIES SOB. capsaicin AdvReac Severe SHORTNESS Verified 08/08/22 17:51 OF BREATH diclofenac AdvReac Severe SHORTNESS Verified 08/08/22 17:51 OF BREATH Past Med/Surg History Medical History Acute dehydration Acute hypoxemic respiratory failure Acute on chronic diastolic (congestive) heart failure Acute osteomyelitis of toe of left foot Acute UTI (urinary tract infection) Acute UTI (urinary tract infection) Alteration in tactile sense Anemia Aortic stenosis MILD-MOD per 08/2019 echo, but NO SIGNIFICANT STENOSIS noted on 10/12/19 echo. Atrial fibrillation On Eliquis Bronchitis CAD (coronary artery disease) s/p CABG x 2 in 2012. CAD has remained quiescent since then. Follows with Dr. Hernandez, who cleared the patient for lumbar surgery 07/2019. CHF (congestive heart failure) EF 50-55% CHF exacerbation Chronic kidney disease, stage 3 CKD (chronic kidney disease) stage 4, GFR 15-29 ml/min Clostridium difficile infection DX [facility] 12/2018 @ [facility]. Stool NEGATIVE 05/25/19. Diabetes mellitus, type 2 IDDM Diabetic foot ulcer Diabetic foot ulcer associated with type 2 diabetes mellitus Following with wound clinic [facility]. Diabetic ulcer of left heel associated with diabetes mellitus due to underlying condition DVT prophylaxis Dysphagia Dysphagia Fatty liver Fever Gout Graves disease Hypertension Hypoglycemia Indwelling Soto catheter present Leucocytosis Lumbar spinal stenosis Severe at L4-5. 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 Lump in neck Lung cancer S/P RM lobectomy 2016, follows with Dr. Perkins. 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 Traumatic wound Vaginal discharge, non-hemorrhagic Venous stasis ulcer of right lower leg with edema of right lower leg Surgical History Fusion of spine lumbar (07/2019) at [facility] --- uneventful surgery/anesthesia and hospitalization, but patient developed subsequent LE paraplegia. 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 History of appendectomy History of bilateral knee replacement History of bronchoscopy History of cardiac cath 2012 - [facility] - [place] - NO STENTS/ANGIOPLASTY -- > CABG History of cholecystectomy History of colonoscopy 11/2018 [facility] History of esophagogastroduodenoscopy (EGD) 11/2018 [facility] History of hysterectomy with oophorectomy KEARA with BSO History of lobectomy of lung RML History of ovarian cystectomy History of surgery Right VATS PROCEDURE History of tubal ligation Hx of CABG 2012 - - [place] - 2 VESSELS Family History Daughter Family history of diabetes mellitus Mother Heart disease Hypertension Myocardial infarction Father Hypertension Other Diabetes Denies family history of Ovarian cancer Prostate cancer Crohn's disease Breast cancer Colorectal cancer Ulcerative colitis Social History Smoking Status: Former smoker Tobacco Type: Cigarettes Years Smoked: 20; Cigarettes Per Day: 10; Number of Years Since Quit: 8; Second Hand Exposure: No; Hx Alcohol Use: No Hx Substance Use: No Preferred Language: Mongolian Communication Ability: Effective Visual Impairment: No Limitations Hearing Ability: Normal 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 current occupational status: retired How many Children do You have: 5 Feels Safe at Home: Yes Childhood Exposure to Second-Hand Smoke: No Dental Care, Regularly: No Physical Activity Frequency: Does not Exercise Seatbelt Use: always Sunscreen Use: No Assistive Devices: CPAP, Walker and Wheelchair Review of Systems See HPI for pertinent positives & negatives. and A total of 10 systems reviewed and were otherwise negative Physical Exam Vital Signs Vital Signs - 24 hr 08/08/22 12:49 08/08/22 13:01 08/08/22 13:03 Temperature 97.7 F Temperature Source Oral Pulse Rate 55 L Pulse Rate [Apical] Pulse Strength Normal Respiratory Rate 20 Respiratory Effort / Characteristics Non-Labored Non-Labored Spontaneous Respiratory Depth Normal Normal Respiratory Pattern Regular Blood Pressure 131/50 L Blood Pressure [Left Arm] Blood Pressure Mean 77 Blood Pressure Mean [Left Arm] Blood Pressure Position Lying Blood Pressure Position [Left Arm] Pulse Oximetry 99 91 Oxygen Delivery Method Nasal Cannula Nasal Cannula Oxygen Flow Rate 2 0 Sepsis Recent Fever Within 48 Hours No Sepsis New/Unexplained Change in Mental Status No Sepsis Action Taken by Nursing No Action Required Oxygen Flow Rate - Titration 2 Pulse Oximetry Post Tiitration 99 08/08/22 13:31 08/08/22 15:14 08/08/22 16:29 Temperature Temperature Source Pulse Rate Pulse Rate [Apical] 54 L 53 L 54 L Pulse Strength Respiratory Rate 20 20 18 Respiratory Effort / Characteristics Non-Labored Spontaneous Non-Labored Spontaneous Non-Labored Respiratory Depth Normal Normal Respiratory Pattern Blood Pressure Blood Pressure [Left Arm] 131/70 136/85 149/75 H Blood Pressure Mean Blood Pressure Mean [Left Arm] 90 102 99 Blood Pressure Position Blood Pressure Position [Left Arm] Lying Lying Pulse Oximetry 100 99 99 Oxygen Delivery Method Nasal Cannula Room Air Nasal Cannula Oxygen Flow Rate 2 Sepsis Recent Fever Within 48 Hours Sepsis New/Unexplained Change in Mental Status Sepsis Action Taken by Nursing Oxygen Flow Rate - Titration Pulse Oximetry Post Tiitration CONSTITUTIONAL: Well developed, well nourished, pleasant, conversational although does have a hard time speaking in complete sentences. HEAD: Normocephalic, atraumatic. EYES: conjunctivae normal, extraocular muscles intact. NECK: Full active range of motion. No JVD or hepatojugular reflex. RESPIRATORY: Breathing is slightly labored and patient tails off at the end of her sentence due to dyspnea. There is an intermittent cough present. Upper lung colin are clear to auscultation, mild rales in bilateral bases. No wheezes or rhonchi appreciated. CARDIOVASCULAR: Bradycardic rate and regular rhythm. 3 out of 6 systolic murmur at aortic, pulmonic, and tricuspid regions. Right lower extremity with 4+ pitting edema extending into the upper legs, questionable skin color changes with intermittent erythema. There is tenderness in the medial proximal thigh. Left lower extremity: 2+ pitting edema extending into the upper legs, no tenderness or skin color changes. ABDOMEN: Normal bowel sounds. Generalized edema is noted. Abdomen is soft, nontender. There is a mild amount of bloody pus about the suprapubic catheter, no skin color changes. MUSCULOSKELETAL: Right heel with superficial blister, no ulceration, mildly tender to palpation, no significant surrounding erythema. Patient has difficulty moving lower extremities. SKIN: [place], warm, dry. No diaphoresis NEUROLOGIC: Alert and oriented x 3. No acute motor or sensory deficits. Cranial nerves grossly intact. PSYCHIATRIC: Appropriate. Normal affect. Course Administered Medications Amitriptyline HCl (Amitriptyline Hcl 50 Mg Tab) 50 mg PO HS CEM Stop: 09/07/22 22:06 Last Admin: 08/08/22 23:28 Dose: 50 mg Apixaban (Apixaban 5 Mg Tablet) 5 mg PO BID CEM Stop: 09/07/22 22:06 Last Admin: 08/08/22 23:28 Dose: 5 mg Furosemide (Furosemide 40 Mg/4 Ml Vial) 40 mg IV BID17 CEM Stop: 09/07/22 22:06 Last Admin: 08/08/22 23:27 Dose: 40 mg Hydralazine HCl (Hydralazine Hcl 25 Mg Tab) 25 mg PO TID CEM Stop: 09/07/22 22:06 Last Admin: 08/08/22 23:27 Dose: 25 mg Insulin Aspart (Insulin Aspart Per Unit) 0 units SC ACHS CEM Stop: 09/07/22 22:06 Last Admin: 08/08/22 23:28 Dose: 2 units Insulin Glargine (Lantus Per Unit Charge) 30 units SQ BID CEM Stop: 09/07/22 22:06 Last Admin: 08/08/22 23:29 Dose: 30 units Ropinirole HCl (Ropinirole Hcl 2 Mg Tablet) 4 mg PO QID CEM Stop: 09/07/22 22:06 Last Admin: 08/08/22 23:29 Dose: 4 mg Ropinirole HCl (Ropinirole Hcl 1 Mg Tablet) 1 mg PO QID CEM Stop: 09/07/22 22:06 Last Admin: 08/08/22 23:31 Dose: 1 mg Discontinued Medications Calcium Gluconate () 1,000 mg in 60 mls @ 240 mls/hr IV NOW STA Stop: 08/08/22 16:09 Last Infusion: 08/08/22 16:26 Dose: 0 mls/hr Documented By: Admin: 08/08/22 16:12 Dose: 240 mls/hr Documented By: CASSIE Ceftriaxone Sodium (Rocephin) 2,000 mg in 70 mls @ 140 mls/hr IV NOW STA Stop: 08/08/22 16:24 Last Infusion: 08/08/22 16:57 Dose: 0 mls/hr Documented By: Admin: 08/08/22 16:26 Dose: 140 mls/hr Documented By: CASSIE Medical Decision Making Differential Diagnosis DVT, PE, CHF exacerbation, fluid overload, ACS, pneumonia, acute kidney injury, infection, pulmonary hypertension, electrolyte disturbance, among other pathology Medical Records Attestation: I reviewed the patient's medical records. Laboratory Data Result diagrams: 08/08/22 12:57 08/08/22 12:57 Lab Results 08/08/22 08/08/22 08/08/22 Range/Units 12:57 12:57 12:57 WBC 7.95 (4.8-10.8) K/ul RBC 3.06 L (3.93-5.22) M/uL Hgb 8.4 L (12.0-16.0) g/dl Hct 27.2 L (34.1-44.9) % MCV 88.9 (80.0-100.0) fL MCH 27.5 (25.0-34.0) pg MCHC 30.9 L (32.0-36.0) g/dL RDW Std Deviation 56.7 H (36.4-46.3) fL RDW Coeff of Lelo 17.4 H (11.5-14.5) % Plt Count 238 (130-400) K/uL MPV 9.2 L (9.4-12.3) fL Immature Gran % (Auto) 1.0 % Neut % (Auto) 83.2 % Lymph % (Auto) 5.4 % Sully % (Auto) 8.9 % Eos % (Auto) 0.6 % Baso % (Auto) 0.9 % Neut # (Auto) 6.61 H (1.4-6.5) K/uL Lymph # (Auto) 0.43 L (1.2-3.4) K/uL Sully # (Auto) 0.71 (0.24-0.82) K/uL Eos # (Auto) 0.05 (0-0.50) K/uL Baso # (Auto) 0.07 (0-0.2) K/uL Immature Gran # (Auto) 0.08 H (0.00-0.02) K/uL VBG pH (7.36-7.41) VBG pCO2 (38-50) mmHg VBG pO2 mmHg VBG HCO3 mmol/L VBG O2 Saturation % VBG Base Excess mEq/L Sodium 123 L (136-145) mmol/L Potassium 5.3 H (3.5-5.1) mmol/L Chloride 92 L (98-107) mmol/L Carbon Dioxide 23 (21-32) mmol/L Anion Gap 8 (3-11) BUN 63 H (6-23) mg/dl Creatinine 2.30 H (0.6-1.2) mg/dl Est Cr Clr Drug Dosing 36.9 ml/min Est GFR ( Amer) 23.0 ml/min Est GFR (Non-Af Amer) 19.8 ml/min BUN/Creatinine Ratio 27.4 H (10-20) Glucose 187 H (70-99(Fasting)) mg/dl Calcium 8.8 (8.5-10.1) mg/dl Total Bilirubin 1.2 H (0.2-1.0) mg/dl AST 29 (13-39) U/L ALT 21 (7-52) U/L Alkaline Phosphatase 88 (34-104) U/L Troponin I High Sens 33.6 H (0-14) pg/ml B-Natriuretic Peptide 225 H (0-100) pg/ml Total Protein 6.8 (6.0-8.3) gm/dl Albumin 4.0 (3.4-5.0) gm/dl Globulin 2.8 (2.5-4.0) gm/dl Albumin/Globulin Ratio 1.4 (0.9-2) Urine Color Urine Appearance (Clear) Urine pH (4.5-7.5) Ur Specific [place] (1.000-1.030) Urine Protein (Negative) Urine Glucose (UA) (Negative) Urine Ketones (Negative) Urine Blood (Negative) Urine Nitrite (Negative) Urine Bilirubin (Negative) Urine Urobilinogen (Negative) Ur Leukocyte Esterase (Negative) Urine WBC (Auto) (0-5) /hpf Urine RBC (Auto) (0-4) /hpf U Hyaline Cast (Auto) U Epithel Cells (Auto) (0-5) /lpf Urine Bacteria (Auto) (Negative) Urine Yeast SARS-CoV-2 (PCR) (Negative) 08/08/22 08/08/22 08/08/22 Range/Units 15:20 15:58 16:21 WBC (4.8-10.8) K/ul RBC (3.93-5.22) M/uL Hgb (12.0-16.0) g/dl Hct (34.1-44.9) % MCV (80.0-100.0) fL MCH (25.0-34.0) pg MCHC (32.0-36.0) g/dL RDW Std Deviation (36.4-46.3) fL RDW Coeff of Lelo (11.5-14.5) % Plt Count (130-400) K/uL MPV (9.4-12.3) fL Immature Gran % (Auto) % Neut % (Auto) % Lymph % (Auto) % Sully % (Auto) % Eos % (Auto) % Baso % (Auto) % Neut # (Auto) (1.4-6.5) K/uL Lymph # (Auto) (1.2-3.4) K/uL Sully # (Auto) (0.24-0.82) K/uL Eos # (Auto) (0-0.50) K/uL Baso # (Auto) (0-0.2) K/uL Immature Gran # (Auto) (0.00-0.02) K/uL VBG pH 7.35 L (7.36-7.41) VBG pCO2 42 (38-50) mmHg VBG pO2 35 mmHg VBG HCO3 23 mmol/L VBG O2 Saturation < 60.0 % VBG Base Excess -2.4 mEq/L Sodium (136-145) mmol/L Potassium (3.5-5.1) mmol/L Chloride (98-107) mmol/L Carbon Dioxide (21-32) mmol/L Anion Gap (3-11) BUN (6-23) mg/dl Creatinine (0.6-1.2) mg/dl Est Cr Clr Drug Dosing ml/min Est GFR ( Amer) ml/min Est GFR (Non-Af Amer) ml/min BUN/Creatinine Ratio (10-20) Glucose (70-99(Fasting)) mg/dl Calcium (8.5-10.1) mg/dl Total Bilirubin (0.2-1.0) mg/dl AST (13-39) U/L ALT (7-52) U/L Alkaline Phosphatase (34-104) U/L Troponin I High Sens 32.7 H (0-14) pg/ml B-Natriuretic Peptide (0-100) pg/ml Total Protein (6.0-8.3) gm/dl Albumin (3.4-5.0) gm/dl Globulin (2.5-4.0) gm/dl Albumin/Globulin Ratio (0.9-2) Urine Color Yellow Urine Appearance Turbid A (Clear) Urine pH 5.0 (4.5-7.5) Ur Specific [place] 1.010 (1.000-1.030) Urine Protein 1+ H (Negative) Urine Glucose (UA) Negative (Negative) Urine Ketones Negative (Negative) Urine Blood 3+ H (Negative) Urine Nitrite Positive A (Negative) Urine Bilirubin Negative (Negative) Urine Urobilinogen Negative (Negative) Ur Leukocyte Esterase 3+ H (Negative) Urine WBC (Auto) >30 H (0-5) /hpf Urine RBC (Auto) 10-30 H (0-4) /hpf U Hyaline Cast (Auto) Not Reportable U Epithel Cells (Auto) >30 H (0-5) /lpf Urine Bacteria (Auto) 4+ H (Negative) Urine Yeast Not Reportable SARS-CoV-2 (PCR) (Negative) 08/08/22 Range/Units 16:27 WBC (4.8-10.8) K/ul RBC (3.93-5.22) M/uL Hgb (12.0-16.0) g/dl Hct (34.1-44.9) % MCV (80.0-100.0) fL MCH (25.0-34.0) pg MCHC (32.0-36.0) g/dL RDW Std Deviation (36.4-46.3) fL RDW Coeff of Lelo (11.5-14.5) % Plt Count (130-400) K/uL MPV (9.4-12.3) fL Immature Gran % (Auto) % Neut % (Auto) % Lymph % (Auto) % Sully % (Auto) % Eos % (Auto) % Baso % (Auto) % Neut # (Auto) (1.4-6.5) K/uL Lymph # (Auto) (1.2-3.4) K/uL Sully # (Auto) (0.24-0.82) K/uL Eos # (Auto) (0-0.50) K/uL Baso # (Auto) (0-0.2) K/uL Immature Gran # (Auto) (0.00-0.02) K/uL VBG pH (7.36-7.41) VBG pCO2 (38-50) mmHg VBG pO2 mmHg VBG HCO3 mmol/L VBG O2 Saturation % VBG Base Excess mEq/L Sodium (136-145) mmol/L Potassium (3.5-5.1) mmol/L Chloride (98-107) mmol/L Carbon Dioxide (21-32) mmol/L Anion Gap (3-11) BUN (6-23) mg/dl Creatinine (0.6-1.2) mg/dl Est Cr Clr Drug Dosing ml/min Est GFR ( Amer) ml/min Est GFR (Non-Af Amer) ml/min BUN/Creatinine Ratio (10-20) Glucose (70-99(Fasting)) mg/dl Calcium (8.5-10.1) mg/dl Total Bilirubin (0.2-1.0) mg/dl AST (13-39) U/L ALT (7-52) U/L Alkaline Phosphatase (34-104) U/L Troponin I High Sens (0-14) pg/ml B-Natriuretic Peptide (0-100) pg/ml Total Protein (6.0-8.3) gm/dl Albumin (3.4-5.0) gm/dl Globulin (2.5-4.0) gm/dl Albumin/Globulin Ratio (0.9-2) Urine Color Urine Appearance (Clear) Urine pH (4.5-7.5) Ur Specific [place] (1.000-1.030) Urine Protein (Negative) Urine Glucose (UA) (Negative) Urine Ketones (Negative) Urine Blood (Negative) Urine Nitrite (Negative) Urine Bilirubin (Negative) Urine Urobilinogen (Negative) Ur Leukocyte Esterase (Negative) Urine WBC (Auto) (0-5) /hpf Urine RBC (Auto) (0-4) /hpf U Hyaline Cast (Auto) U Epithel Cells (Auto) (0-5) /lpf Urine Bacteria (Auto) (Negative) Urine Yeast SARS-CoV-2 (PCR) NEGATIVE (Negative) Imaging Data Radiologist's Impression: Chest X-Ray 08/08/22 14:55 SINGLE VIEW CHEST CLINICAL HISTORY: Dyspnea. Lower extremity edema. Congestive heart failure. FINDINGS: 2 AP, portable, upright chest radiographs are compared to study dated 08/01/2022. The examination is degraded by portable technique and apical lordotic positioning. The patient is status post midline sternotomy. The heart is enlarged noting atherosclerotic calcification of the thoracic aorta. There is pulmonary vascular congestion with interstitial edema. Postsurgical changes noted in the right mid lung. There are small pleural effusions with dependent consolidation. No pneumothorax is seen. The skeletal structures are osteopenic. The bony thorax is grossly intact. IMPRESSION: 1. Cardiomegaly with evidence of congestive failure and pulmonary edema. 2. Small pleural effusions and dependent consolidation. ACT 112: Negative or not required by law. Electronically signed by: Albert Bonner M.D. 08/08/2022 3:42 PM Venous Doppler Study 08/08/22 14:55 ULTRASOUND RIGHT LOWER EXTREMITY VENOUS CLINICAL HISTORY: Right leg pain and swelling. COMPARISON STUDY: Right lower extremity venous ultrasound dated 09/10/2017. TECHNIQUE: Real-time, grayscale, and color Doppler sonography of the deep veins of the right lower extremity was performed from the inguinal crease to the calf. Compression and augmentation were utilized. FINDINGS: There is no sonographic evidence of deep venous thrombosis identified in the right lower extremity. The common femoral, superficial femoral, and popliteal veins are patent and normally compressible. The greater saphenous vein and the profunda femoris vein at the junction with the common femoral vein are clear. The visualized calf veins are patent. IMPRESSION: There is no sonographic evidence of deep venous thrombosis identifi ed in the right lower extremity. ACT 112: Negative or not required by law. Electronically signed by: Albert Bonner M.D. 08/08/2022 5:[address] 08/08/22 16:10 CT SCAN OF THE BRAIN WITHOUT IV CONTRAST CLINICAL HISTORY: Change in mental status. COMPARISON STUDY: CT of the brain dated 10/10/2019. TECHNIQUE: Unenhanced axial CT scan of the brain is performed from the vertex to the skull base. A dose lowering technique was utilized adhering to the principles of ALARA. CT DOSE: 884.08 mGy.cm FINDINGS: Brain parenchyma: A focus of left frontal encephalomalacia is unchanged. There is age-related involutional change noting mild subcortical and periventricular microangiopathic disease. There is no hemorrhage, mass effect, or evidence of acute territorial ischemia by CT criteria. Aiken-white matter differentiation is preserved. No extra-axial fluid collection is seen. Ventricles, sulci, cisterns: Prominent secondary to involutional change. Intracranial vasculature: There is atherosclerotic calcification of the ca vernous carotid and vertebral arteries. Calvarium: Unremarkable. Sinuses and mastoids: The paranasal sinuses are clear. The mastoid air cells are well pneumatized. Orbits: The bony orbits are grossly intact. IMPRESSION: There is no hemorrhage, mass effect, or evidence of acute terr itorial ischemia by CT criteria. ACT 112: Negative or not required by law. Electronically signed by: Albert Bonner M.D. 08/08/2022 5:59 PM ECG Data Attestation: I personally reviewed and interpreted this ECG as follows: (Rate of 52, junctional rhythm unchanged from prior ECG 08/02/2022. No acute ST elevation. Biphasic T wave in aVL, unchanged from prior. No evidence of ischemia. Left ax is deviation. QTC slightly prolonged at 479 compared to 430 from recent) MDM Narrative 76-year-old female presents via EMS from rehab with lower extremity edema worse on the right than the left, cough, and dyspnea that has progressed over the past 2 days. Patient was discharged from this facility on 08/04/2022. 91% on room air requiring supplemental oxygen via nasal cannula which appears to be a new finding for her. Patient slightly dyspneic on my examination and does have significant lower extremity edema worse on the right than the left. This appears to extend into the abdomen. Concern for possible DVT on the right given the extent of her edema that is now worse than it was from several days ago. Her lungs have very faint crackles in the bases although she is moving air well. Mild amount of bloody pus about the suprapubic catheter. Suspect volume overload as the source of majority of symptoms. Potential cystitis At the conclusion of my initial history and examination, the patient's daughter Kalie and the patient's entered the room and the daughter stated that she would like to sign her mother out against medical advice and take her to [facility] because she was unhappy with the care the patient received at most recent admission. We discussed the risks and benefits of this, especially the fact that the patient is requiring supplemental oxygen at this time. Both the daughter, patient, and the patient's voiced understanding of these risks which were discussed in detail and signed out. Daughter was unders tandably very emotional. Charge nurse Elaina was also in room. This conversation was quite reasonable and we expressed our understanding about the daughter's concern. Daughter asked if we could facilitate transferring the patient to [facility] and we explained that unfortunately we cannot provide those resources as this would be an EMTALA violation and hospital dumping, so the patient and daughter agreed to stay for evaluation. Initial labs and imaging were ordered. Placed on child monitor demonstrating bradycardia in the 50's regular rhythm. ECG largely unchanged from prior aside from mildly prolonged QTC. 1 view chest x-ray shows vascular congestion, bilateral small pleural effusions, and evidence of congestive failure. Ultrasound is negative for DVT. On my reevaluation, patient was intermittently drowsy and dozing during our conversation so a VBG and head CT was obtained as she is on Eliquis. Head CT is negative. VBG pH 7.35, normal CO2. Labs Hemoglobin stable at 8.4, reassuring in setting of transfusion from 1 week ago. No leukocytosis. Sodium now 123 from 126 4 days ago Hyperkalemia 5.3. Given calcium gluconate 1 g to stabilize, may be contributing to prolonged QTC. Creatinine 2.3 slightly elevated from time of discharge (2.07) Glucose elevated 187, likely baseline Troponin and repeat troponin stable 33.6, 32.7 respectively, baseline BNP elevated at 225 from 165 from 1 week ago. Urine concerning for infection, given ceftriaxone 2 g after line was flushed after calcium gluconate. COVID-negative Case was discussed in detail with [facility] hospitalist Dr. Kam who agreed to admit the patient for ongoing management. Impression & Plan Acute dyspnea, Asymmetric edema of both lower extremities, Hypoxemia requiring supplemental oxygen, Acute hyperkalemia, Cystitis Discharge Plan Visit Data Chief Complaint: Shortness of Breath/Dyspnea Stated Complaint: CARDIAC SX ED Provider: Dani Olivo ED Midlevel Provider: Jeromy Guzmán Discharge Problem: Acute dyspnea, Asymmetric edema of both lower extremities, Hypoxemia requiring supplemental oxygen, Acute hyperkalemia, Cystitis Patient Disposition: Admitted As Inpatient Condition: Fair Discharge Instructions Interventions: ED Discharge Assessment Last Done: 08/08/22 21:20
[2022-08-08 15:09] LABS: Basophils # (auto) 0.07 K/uL (0-0.2); Basophils % (auto) 0.9 %; Eosinophils # (auto) 0.05 K/uL (0-0.50); Eosinophils % (auto) 0.6 %; Hematocrit (blood only) 27.2 % (34.1-44.9); Hemoglobin 8.4 g/dl (12.0-16.0); Immature Granulocytes # (auto) 0.08 K/uL (0.00-0.02); Lymphocytes # (auto) 0.43 K/uL (1.2-3.4); Lymphocytes % (auto) 5.4 %; Mean Corpuscular Hemoglobin 27.5 pg (25.0-34.0); Mean Corpuscular Hgb Conc 30.9 g/dL (32.0-36.0); Mean Corpuscular Volume 88.9 fL (80.0-100.0); Mean Platelet Volume 9.2 fL (9.4-12.3); Monocytes # (auto) 0.71 K/uL (0.24-0.82); Monocytes % (auto) 8.9 %; Neutrophils # (auto) 6.61 K/uL (1.4-6.5); Neutrophils % (auto) 83.2 %; Platelet Count 238 K/uL (130-400); RDW Coefficient of Variation 17.4 % (11.5-14.5); RDW Standard Deviation 56.7 fL (36.4-46.3); Red Blood Count 3.06 M/uL (3.93-5.22); White Blood Count 7.95 K/ul (4.8-10.8)
[2022-08-08 15:32] LABS: Troponin I High Sensitivity 33.6 pg/ml (0-14)
[2022-08-08 15:36] LABS: Albumin Globulin Ratio 1.4 (0.9-2); BUN Creatinine Ratio 27.4 (10-20); Bilirubin,Total 1.2 mg/dl (0.2-1.0); Calcium 8.8 mg/dl (8.5-10.1); Creatinine Clr Calc Pharmacy 36.9 ml/min; Est GFR (Non-African American) 19.8 ml/min; Globulin 2.8 gm/dl (2.5-4.0); Potassium 5.3 mmol/L (3.5-5.1); Total Protein 6.8 gm/dl (6.0-8.3)
--- NOTE | 2022-08-08 15:44 | XRay Report ---
SINGLE VIEW CHEST CLINICAL HISTORY: Dyspnea. Lower extremity edema. Congestive heart failure. FINDINGS: 2 AP, portable, upright chest radiographs are compared to study dated 08/01/2022. The examin ation is degraded by portable technique and apical lordotic positioning. The patient is status post m idline sternotomy. The heart is enlarged noting atherosclerotic calcification of the thoracic aorta. There is pulmonary vascular congestion with interstitial edema. Postsurgical changes noted in the rig ht mid lung. There are small pleural effusions with dependent consolidation. No pneumothorax is seen. The skeletal structures are osteopenic. The bony thorax is grossly intact. IMPRESSION: 1. Cardiomegaly with evidence of congestive failure and pulmonary edema. 2. Small pleural effusions and dependent consolidation. ACT 112: Negative or not required by law. Electronically signed by: Albert Bonner M.D. 08/08/2022 3:42 PM
[2022-08-08 15:47] LABS: Appearance Urine Turbid (Clear); Bacteria Urine Automated 4+ (Negative); Bilirubin Urine Negative (Negative); Blood Urine 3+ (Negative); Color Urine Yellow; Epithelial Cell Urine Auto >30 /lpf (0-5); Glucose Urine UA Negative (Negative); Ketones Urine Negative (Negative); Leukocyte Esterase Urine 3+ (Negative); Nitrite Urine Positive (Negative); Protein Urine 1+ (Negative); Urobilinogen Urine Negative (Negative); WBC Urine Automated >30 /hpf (0-5)
[2022-08-08] MEDS ORDERED: CALCIUM GLUCONATE 1,000 MG/60 ML BAG IV STA (15:55)
[2022-08-08] MEDS ORDERED: cefTRIAXone SODIUM 2,000 MG/70 ML BAG IV STA (15:55)
[2022-08-08 16:34] LABS: Base Excess VBG -2.4 mEq/L; HCO3 VBG 23 mmol/L; Oxygen Saturation VBG < 60.0 %; PCO2 VBG 42 mmHg (38-50); PO2 VBG 35 mmHg; pH VBG 7.35 (7.36-7.41)
--- NOTE | 2022-08-08 17:06 | Ultrasound Report ---
ULTRASOUND RIGHT LOWER EXTREMITY VENOUS CLINICAL HISTORY: Right leg pain and swelling. COMPARISON STUDY: Right lower extremity venous ultrasound dated 09/10/2017. TECHNIQUE: Real-time, grayscale, and color Doppler sonography of the deep veins of the right lower ex tremity was performed from the inguinal crease to the calf. Compression and augmentation were utilize d. FINDINGS: There is no sonographic evidence of deep venous thrombosis identified in the right lower ex tremity. The common femoral, superficial femoral, and popliteal veins are patent and normally natasha sible. The greater saphenous vein and the profunda femoris vein at the junction with the common femor al vein are clear. The visualized calf veins are patent. IMPRESSION: There is no sonographic evidence of deep venous thrombosis identified in the right lower extremity. ACT 112: Negative or not required by law. Electronically signed by: Albert Bonner M.D. 08/08/2022 5:04 PM
--- NOTE | 2022-08-08 17:07 | History & Physical Report ---
Date of Service August 08, 2022 Assessment & Plan (1) CHF (congestive heart failure): Plan: Acute on chronic diastolic heart failure. Not sure how she declined so quickly. Daughter mostly concerned about abdomen. No baseline weight for her as she cannot stand and does not use home scales. - Lasix 40 mg IV BID for now - Monitor bed weights, I&Os - Telemetry (2) Hyponatremia: Plan: Hypervolemic hyponatremia -> Likely due to her CHF, worsen by her spironolactone. Hyperkalemia likely from spironolactone & KCl. - Hold spironolactone - Hold KCl - Monitor (3) Indwelling Soto catheter present: Plan: Question of acute UTI on admission due to some blood around suprapubic cath site; however, says it often bleeds when she is moved around as it pulls the cath. (She is on anticoagulation for afib.) Draining freely at present. Last changed on 07/14/2022. - Plan to change out while inpatient. - Monitor (4) CKD (chronic kidney disease) stage 4, GFR 15-29 ml/min: Plan: Baseline Cr ~2.1. On admission, Cr up to 2.3, but not really SRINI. Likely cardiorenal. - Hold spironolactone - Continue Lasix - Monitor (5) Type 2 diabetes mellitus with kidney complication, with long-term current use of insulin: Plan: A1c was 6.6% during last admission. - Continue home Lantus at reduced dose (30 units BID instead of 35 units) to account for lower calorie intake in the hospital - Sliding scale insulin (6) CAD (coronary artery disease): Plan: Per Dr. Hernandez's note from 04/2022: CAD s/p CABG x 2 Vessels (RANDHAWA to LAD, SVG to PDA) 07/31/13. - Continue home beta-jody, statin - Hold spironolactone for hyponatremia (7) Atrial fibrillation: Plan: EKG on admission shows bradycardia with a junctional rhythm. Compared to EKG on 08/02/2022 (and even back to 2020), I do not see any differences. - Continue home Eliquis - Continue home beta-jody (8) Anemia: Plan: Chronic. Likely due to anemia of chronic disease and CKD. - Monitor FULL CODE - Per patient with family in agreement. History of Present Illness Primary Care Provider: Jaquelin Crowley MD 76yo F w/ hx of CHF, DM who presents with likely CHF exacerbation. Was recently in the hospital and was discharged to [facility]. She reports increased LE edema and shortness of breath while there. She believes she was taking all her medications as per on the discharge summary. She is not sure about sodium intake there. She has felt more shortness of breath, and her SpO2 was 90% on room air, so she was started on low-dose nasal cannula O2. She reports some orthopnea symptoms. Allergies Allergy/AdvReac Type Severity Reaction Status Date / Time metoclopramide [From Reglan] Allergy Mild "went Verified 08/08/22 17:51 crazy" NSAIDS (Non-Steroidal Allergy Unknown UNK? Verified 08/08/22 17:51 Anti-Inflamma DENIES SOB. capsaicin AdvReac Severe SHORTNESS Verified 08/08/22 17:51 OF BREATH diclofenac AdvReac Severe SHORTNESS Verified 08/08/22 17:51 OF BREATH Home Medications Medication Instructions Recorded Confirmed Type Calcium Carb-Mag Cl 112mg-64mg 1 tab PO TID 08/08/22 08/08/22 History acetaminophen 325 mg tablet 650 mg PO Q4 PRN PAIN 1-3 SCALE 08/08/22 08/08/22 History (Tylenol) albuterol sulfate 90 mcg/actuation 1 puff inhalation Q6 PRN Shortness 08/08/22 08/08/22 History aerosol inhaler (Ventolin HFA) Of Breath Or Wheezing allopurinol 100 mg tablet 100 mg PO DAILY 08/08/22 08/08/22 History amitriptyline 50 mg tablet 50 mg PO DAILY 08/08/22 08/08/22 History amlodipine 5 mg tablet 5 mg PO DAILY 08/08/22 08/08/22 History apixaban 5 mg tablet (Eliquis) 5 mg PO Q12 08/08/22 08/08/22 History atorvastatin 40 mg tablet 80 mg PO HS 08/08/22 08/08/22 History cholecalciferol (vitamin D3) 125 125 mcg PO DAILY 08/08/22 08/08/22 History mcg (5,000 unit) tablet (Vitamin D3) docusate sodium 100 mg capsule 100 mg PO BID 08/08/22 08/08/22 History hydralazine 25 mg tablet 25 mg PO Q8 08/08/22 08/08/22 History insulin glargine 100 unit/mL 35 unit subcut BID 08/08/22 08/08/22 History subcutaneous solution insulin regular human 100 unit/mL 1 sliding scale dose subcut 08/08/22 08/08/22 History injection solution (Humulin R USEASDIRECTD Regular U-100 Insulin) magnesium hydroxide 400 mg/5 mL 0 ml PO DAILY PRN Constipation 08/08/22 08/08/22 History oral suspension (Milk of Magnesia) metoprolol succinate 25 mg 25 mg PO DAILY 08/08/22 08/08/22 History tablet,extended release 24 hr nitroglycerin 0.4 mg sublingual 0.4 mg sublingual DIRECTED PRN 08/08/22 08/08/22 History tablet (Nitrostat) Chest Pain pantoprazole 40 mg tablet,delayed 40 mg PO DAILY 08/08/22 08/08/22 History release polyethylene glycol 3350 17 gram 17 g PO DAILY PRN Constipation 08/08/22 08/08/22 History oral powder packet (Miralax) ropinirole 5 mg tablet 5 mg PO QID 08/08/22 08/08/22 History sennosides 8.6 mg-docusate sodium 1 tab-cap PO .QLUNCH PRN 08/08/22 08/08/22 Hi story 50 mg tablet (Senokot-S) Constipation Past Med/Surg History Medical History Acute dehydration Acute hypoxemic respiratory failure Acute on chronic diastolic (congestive) heart failure Acute osteomyelitis of toe of left foot Acute UTI (urinary tract infection) Acute UTI (urinary tract infection) Alteration in tactile sense Anemia Aortic stenosis MILD-MOD per 08/2019 echo, but NO SIGNIFICANT STENOSIS noted on 10/12/19 echo. Atrial fibrillation On Eliquis Bronchitis CAD (coronary artery disease) s/p CABG x 2 in 2012. CAD has remained quiescent since then. Follows with Dr. Hernandez, who cleared the patient for lumbar surgery 07/2019. CHF (congestive heart failure) EF 50-55% CHF exacerbation Chronic kidney disease, stage 3 CKD (chronic kidney disease) stage 4, GFR 15-29 ml/min Clostridium difficile infection DX [facility] 12/2018 @ [facility]. Stool NEGATIVE 05/25/19. Diabetes mellitus, type 2 IDDM Diabetic foot ulcer Diabetic foot ulcer associated with type 2 diabetes mellitus Following with wound clinic [facility]. Diabetic ulcer of left heel associated with diabetes mellitus due to underlying condition DVT prophylaxis Dysphagia Dysphagia Fatty liver Fever Gout Graves disease Hypertension Hypoglycemia Indwelling Soto catheter present Leucocytosis Lumbar spinal stenosis Severe at L4-5. 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 Lump in neck Lung cancer S/P RM lobectomy 2015, follows with Dr. Perkins. 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 Traumatic wound Vaginal discharge, non-hemorrhagic Venous stasis ulcer of right lower leg with edema of right lower leg Surgical History Fusion of spine lumbar (07/2019) at [facility] --- uneventful surgery/anesthesia and hospitalization, but patient developed subsequent LE paraplegia. 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 History of appendectomy History of bilateral knee replacement History of bronchoscopy History of cardiac cath 2012 [facility] - [place] NO STENTS/ANGIOPLASTY -- > CABG History of cholecystectomy History of colonoscopy 11/2018 [facility] History of esophagogastroduodenoscopy (EGD) 11/2018 [facility] History of hysterectomy with oophorectomy KEARA with BSO History of lobectomy of lung RML History of ovarian cystectomy History of surgery Right VATS PROCEDURE History of tubal ligation Hx of CABG 2012 - - [place] - 2 VESSELS Family History Daughter Family history of diabetes mellitus Mother Heart disease Hypertension Myocardial infarction Father Hypertension Other Diabetes Denies family history of Ovarian cancer Prostate cancer Crohn's disease Breast cancer Colorectal cancer Ulcerative colitis Social History Smoking Status: Former smoker Tobacco Type: Cigarettes Years Smoked: 20; Cigarettes Per Day: 10; Number of Years Since Quit: 8; Second Hand Exposure: No; Hx Alcohol Use: No Hx Substance Use: No Preferred Language: [place] Communication Ability: Effective Visual Impairment: No Limitations Hearing Ability: Normal Smart 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 current occupational status: retired How many Children do You have: 5 Feels Safe at Home: Yes Childhood Exposure to Second-Hand Smoke: No Dental Care, Regularly: No Physical Activity Frequency: Does not Exercise Seatbelt Use: always Sunscreen Use: No Assistive Devices: CPAP, Walker and Wheelchair Review of Systems Review of Systems: All systems reviewed & are unremarkable except as noted in HPI & below Physical Exam Constitutional: WD/WN, vitals as above Eyes: EOM intact bilaterally; no conjunctival abnormality ENMT: external ear and nose normal, oropharynx normal Neck: trachea midline, no thyromegaly normal visual inspection Respiratory: normal respiratory effort, lungs clear to auscultation no respiratory distress Cardiovascular: Rate/Rhythm: regular rhythm and + bradycardic Extremities: + edema Gastrointestinal (Abdomen): Inspection/Auscultation: + abdomen distended and + abdominal edema (Mild anasarca); + abdomen abnormal to inspection Percussion/Palpation: abdomen soft; abdomen nontender, no guarding and abdomen not rigid Musculoskeletal: no cyanosis or clubbing, extremities motor strength 5/5 Skin: no rashes, warm and dry Neurologic: moves all extremities and awake Psychiatric: Orientation: alert, oriented to person and cooperative Results & Data Results & Data ([facility]) Vital Signs (Past 12 Hours) Vital Signs Temp Pulse Pulse Resp BP BP Pulse Ox 08/08/22 16:29 54 L 18 149/75 H 99 08/08/22 15:14 53 L 20 136/85 99 08/08/22 13:31 54 L 20 131/70 100 08/08/22 13:01 91 08/08/22 12:49 36.5 C 55 L 20 131/50 L 99 O2 Del Method O2 Flow Rate 08/08/22 16:29 Nasal Cannula 2 08/08/22 15:14 Room Air 08/08/22 13:31 Nasal Cannula 08/08/22 13:01 Nasal Cannula 0 08/08/22 12:49 Nasal Cannula 2 Code Status & VTE Plan VTE Prophylaxis Plan VTE Prophylaxis will be ordered: Yes PG Care Time/CCT Total # of Minutes Spent Total Time Spent with Patient: Total time spent is greater than 50% in coordination of care (as documented) at patient's floor/unit and/or counseling patient: Coding Level of Care Code 79489 Initial Inpt Care Lvl 3 Diagnoses CHF (congestive heart failure) I50.9 Hyponatremia E87.1 Indwelling Soto catheter present Z96.0 CKD (chronic kidney disease) stage 4, GFR 15-29 ml/min N18.4 Type 2 diabetes mellitus with kidney complication, with long-term current use of insulin E11.29; Z79.4 CAD (coronary artery disease) I25.10 Associated angina: without angina Coronary Disease-Associated Artery/Lesion type: [place] artery [place] vs. transplanted heart: [place] heart Atrial fibrillation I48.20 Atrial fibrillation type: unspecified chronic Anemia D64.9 (1) CAD (coronary artery disease) Associated angina: without angina Coronary Disease-Associated Artery/Lesion type: [place] artery [place] vs. transplanted heart: [place] heart Qualified Code(s): I25.10 - Atherosclerotic heart disease of [place] coronary artery without angina pectoris (2) Atrial fibrillation Atrial fibrillation type: unspecified chronic Qualified Code(s): I48.20 - Chronic atrial fibrillation, unspecified
--- NOTE | 2022-08-08 18:02 | CT Scan Report ---
CT SCAN OF THE BRAIN WITHOUT IV CONTRAST CLINICAL HISTORY: Change in mental status. COMPARISON STUDY: CT of the brain dated 10/10/2019. TECHNIQUE: Unenhanced axial CT scan of the brain is performed from the vertex to the skull base. A do se lowering technique was utilized adhering to the principles of ALARA. CT DOSE: 884.08 mGy.cm FINDINGS: Brain parenchyma: A focus of left frontal encephalomalacia is unchanged. There is age-related involut ional change noting mild subcortical and periventricular microangiopathic disease. There is no hemorr liam, mass effect, or evidence of acute territorial ischemia by CT criteria. Aiken-white matter differ entiation is preserved. No extra-axial fluid collection is seen. Ventricles, sulci, cisterns: Prominent secondary to involutional change. Intracranial vasculature: There is atherosclerotic calcification of the cavernous carotid and vertebr al arteries. Calvarium: Unremarkable. Sinuses and mastoids: The paranasal sinuses are clear. The mastoid air cells are well pneumatized. Orbits: The bony orbits are grossly intact. IMPRESSION: There is no hemorrhage, mass effect, or evidence of acute territorial ischemia by CT janell lopez. ACT 112: Negative or not required by law. Electronically signed by: Albert Bonner M.D. 08/08/2022 5:59 PM
[2022-08-08] MEDS ORDERED: ALBUTEROL HFA 8 GM INHALER INH PRN (22:07)
[2022-08-08] MEDS ORDERED: GLUCOSE 10 TAB/TUBE PO PRN (22:07)
[2022-08-08] MEDS ORDERED: GLUCOSE 40% GEL 15 GM TUBE PO PRN (22:07)
[2022-08-08] MEDS ORDERED: GLUCAGON FOR INJ 1 MG VIAL SQ PRN (22:07)
[2022-08-08] MEDS ORDERED: ONDANSETRON INJ 2 MG/ML 2 ML VIAL IV PRN (22:07)
[2022-08-08] MEDS ORDERED: CARBOHYDRATES FOR HYPOGLYCEMIA PO PRN (22:07)
[2022-08-08] MEDS ORDERED: DEXTROSE 50% 50 ML SYRINGE IV PRN (22:07)
[2022-08-08] MEDS: FUROSEMIDE 40 MG/4 ML VIAL IV SCH (23:27)
[2022-08-08] MEDS: hydrALAZINE HCL 25 MG TAB PO SCH (23:27)
[2022-08-08] MEDS: AMITRIPTYLINE HCL 50 MG TAB PO SCH (23:28)
[2022-08-08] MEDS: APIXABAN 5 MG TABLET PO SCH (23:28)
[2022-08-08] MEDS: INSULIN ASPART PER UNIT SC SCH (23:28)
[2022-08-08] MEDS: rOPINIRole HCL 2 MG TABLET PO SCH (23:29)
[2022-08-08] MEDS: LANTUS PER UNIT CHARGE SQ SCH (23:29)
[2022-08-08] MEDS: rOPINIRole HCL 1 MG TABLET PO SCH (23:31)
[2022-08-09] MEDS: INSULIN ASPART PER UNIT SC SCH ×4 (08:14→21:43)
[2022-08-09] MEDS: LANTUS PER UNIT CHARGE SQ SCH ×2 (08:15→21:43)
[2022-08-09] MEDS: APIXABAN 5 MG TABLET PO SCH ×2 (08:17→21:30)
[2022-08-09] MEDS: hydrALAZINE HCL 25 MG TAB PO SCH ×3 (08:17→21:30)
[2022-08-09] MEDS: FUROSEMIDE 40 MG/4 ML VIAL IV SCH ×2 (08:17→17:20)
[2022-08-09] MEDS: PANTOprazole 40 MG TAB PO SCH (08:17)
[2022-08-09] MEDS: rOPINIRole HCL 1 MG TABLET PO SCH ×4 (08:17→21:30)
[2022-08-09] MEDS: allopurinoL 100 MG TAB PO SCH (08:17)
[2022-08-09] MEDS: ROSUVASTATIN CALCIUM 20 MG TAB PO SCH (08:17)
[2022-08-09] MEDS: rOPINIRole HCL 2 MG TABLET PO SCH ×4 (08:17→21:30)
[2022-08-09 08:24] LABS: Hematocrit (blood only) 25.9 % (34.1-44.9); Hemoglobin 8.1 g/dl (12.0-16.0); Mean Corpuscular Hgb Conc 31.3 g/dL (32.0-36.0); Mean Corpuscular Volume 86.3 fL (80.0-100.0); Mean Platelet Volume 9.3 fL (9.4-12.3); Platelet Count 219 K/uL (130-400); RDW Coefficient of Variation 17.2 % (11.5-14.5); RDW Standard Deviation 54.3 fL (36.4-46.3); White Blood Count 6.69 K/ul (4.8-10.8)
[2022-08-09 08:48] LABS: BUN Creatinine Ratio 28.5 (10-20); Calcium 8.8 mg/dl (8.5-10.1); Creatinine Clr Calc Pharmacy 26.5 ml/min; Est GFR (African American) 24.1 ml/min; Est GFR (Non-African American) 20.8 ml/min; Magnesium 2.1 mg/dl (1.7-2.4); Potassium 4.4 mmol/L (3.5-5.1)
--- NOTE | 2022-08-09 12:52 | Electrocardiogram Report ---
Test Reason : Blood Pressure : / mmHG Vent. Rate : 052 BPM Atrial Rate : 043 BPM P-R Int : 000 ms QRS Dur : 140 ms QT Int : 516 ms P-R-T Axes : 000 -52 077 degrees QTc Int : 479 ms Junctional bradycardia Left axis deviation Non-specific intra-ventricular conduction block Cannot rule out Anterior infarct , age undetermined Abnormal ECG When compared with ECG of 02-AUG-2022 14:24, No significant change Confirmed by Satya Lindquist ([id number]) on 08/09/2022 12:52:12 PM Referred By: REFERRED SELF Confirmed By:Satya Lindquist
[2022-08-09 16:40] LABS: BUN Creatinine Ratio 27.9 (10-20); Calcium 8.7 mg/dl (8.5-10.1); Creatinine Clr Calc Pharmacy 25.6 ml/min; Est GFR (African American) 23.1 ml/min; Est GFR (Non-African American) 19.9 ml/min; Magnesium 2.1 mg/dl (1.7-2.4); Phosphorus 4.6 mg/dl (2.5-4.9)
[2022-08-09 16:45] LABS: Troponin I High Sensitivity 28.8 pg/ml (0-14)
[2022-08-09] MEDS: ACETAMINOPHEN 325 MG TAB PO PRN (21:30)
[2022-08-09] MEDS: AMITRIPTYLINE HCL 50 MG TAB PO SCH (21:30)
--- NOTE | 2022-08-09 21:45 | Electrocardiogram Report ---
Test Reason : Blood Pressure : / mmHG Vent. Rate : 047 BPM Atrial Rate : 052 BPM P-R Int : 000 ms QRS Dur : 138 ms QT Int : 480 ms P-R-T Axes : 000 -64 096 degrees QTc Int : 424 ms Atrial fibrillation with slow ventricular response with a competing junctional pacemaker Left axis deviation Non-specific intra-ventricular conduction block Abnormal ECG When compared with ECG of 08-AUG-2022 13:01, No significant change Confirmed by Satya Lindquist ([id number]) on 08/09/2022 9:45:29 PM Referred By: REFERRED SELF Confirmed By:Satya Lindquist
--- NOTE | 2022-08-09 22:01 | Hospitalist Progress Note ---
Date of Service August 09, 2022 Assessment & Plan (1) CHF (congestive heart failure): Plan: Acute on chronic diastolic heart failure. Not sure how she declined so quickly. Daughter mostly concerned about abdomen. No baseline weight for her as she cannot stand and does not use home scales. - Lasix 40 mg IV BID initially, held PM dose on 08/09 will repeat blood work in AM. will consult CHF clinic. - Monitor bed weights, I&Os - Telemetry (2) Hyponatremia: Plan: Hypervolemic hyponatremia -> Likely due to her CHF, worsen by her spironolactone. Hyperkalemia likely from spironolactone & KCl. - Hold spironolactone - Hold KCl - Monitor (3) Indwelling Soto catheter present: Plan: Question of acute UTI on admission due to some blood around suprapubic cath site; however, says it often bleeds when she is moved around as it pulls the cath. (She is on anticoagulation for afib.) Draining freely at present. Last changed on 07/14/2022. - Plan to change out while inpatient. - Monitor (4) CKD (chronic kidney disease) stage 4, GFR 15-29 ml/min: Plan: Baseline Cr ~2.1. On admission, Cr up to 2.3, but not really SRINI. Likely cardiorenal. - Hold spironolactone - Continue Lasix - Monitor (5) Type 2 diabetes mellitus with kidney complication, with long-term current use of insulin: Plan: A1c was 6.6% during last admission. - Continue home Lantus at reduced dose (30 units BID instead of 35 units) to account for lower calorie intake in the hospital - Sliding scale insulin (6) CAD (coronary artery disease): Plan: Per Dr. Hernandez's note from 04/2022: CAD s/p CABG x 2 Vessels (RANDHAWA to LAD, SVG to PDA) 07/31/13. - Continue home beta-jody, statin - Hold spironolactone for hyponatremia (7) Atrial fibrillation: Plan: EKG on admission shows bradycardia with a junctional rhythm. Compared to EKG on 08/02/2022 (and even back to 2020), I do not see any differences. - Continue home Eliquis - Continue home beta-jody (8) Anemia: Plan: Chronic. Likely due to anemia of chronic disease and CKD. - Monitor FULL CODE - Per patient with family in agreement. Admission and Anticipated Discharge Date Admission Date: August 08, 2022 Subjective Patient reports no new symptoms. Review of Systems Review of Systems: All systems reviewed & are unremarkable except as noted in HPI & below Physical Exam Constitutional: WD/WN, vitals as above Eyes: EOM intact bilaterally; no conjunctival abnormality ENMT: external ear and nose normal, oropharynx normal Neck: trachea midline, no thyromegaly normal visual inspection Respiratory: normal respiratory effort, lungs clear to auscultation no re spiratory distress Cardiovascular: Rate/Rhythm: regular rhythm and + bradycardic Extremities: + edema Gastrointestinal (Abdomen): Inspection/Auscultation: + abdomen distended and + abdominal edema (Mild anasarca); + abdomen abnormal to inspection Per cussion/Palpation: abdomen soft; abdomen nontender, no guarding and abdomen not rigid Musculoskeletal: no cyanosis or clubbing, extremities motor strength 5/5 Skin: no rashes, warm and dry Neurologic: moves all extremities and awake Psychiatric: Orientation: alert, oriented to person and cooperative Results & Data Results & Data ([facility]) Vital Signs (Past 12 Hours) Vital Signs Temp Pulse Pulse Resp BP Pulse Ox O2 Del Method 08/09/22 19:00 36.9 C 47 L 19 123/66 92 Nasal Cannula 08/09/22 15:44 36.8 C 50 L 19 120/45 L 96 Nasal Cannula 08/09/22 14:59 69 08/09/22 11:23 36.3 C L 50 L 19 126/61 97 Nasal Cannula O2 Flow Rate 08/09/22 19:00 2 08/09/22 15:44 2 08/09/22 14:59 08/09/22 11:23 2 PG Care Time/CCT Total # of Minutes Spent Total Time Spent with Patient: Total time spent is greater than 50% in coordination of care (as documented) at patient's floor/unit and/or counseling patient: Coding Level of Care Code 65234 Subseq Hosp Care Lvl 2 Diagnoses CHF (congestive heart failure) I50.9 Hyponatremia E87.1 Indwelling Soto catheter present Z96.0 CKD (chronic kidney disease) stage 4, GFR 15-29 ml/min N18.4 Type 2 diabetes mellitus with kidney complication, with long-term current use of insulin E11.29; Z79.4 CAD (coronary artery disease) I25.10 Associated angina: without angina Coronary Disease-Associated Artery/Lesion type: [place] artery [place] vs. transplanted heart: [place] heart Atrial fibrillation I48.20 Atrial fibrillation type: unspecified chronic Anemia D64.9 (1) CAD (coronary artery disease) Associated angina: without angina Coronary Disease-Associated Artery/Lesion type: [place] artery [place] vs. transplanted heart: [place] heart Qualified Code(s): I25.10 - Atherosclerotic heart disease of [place] coronary artery without angina pectoris (2) Atrial fibrillation Atrial fibrillation type: unspecified chronic Qualified Code(s): I48.20 - Chronic atrial fibrillation, unspecified
[2022-08-10] MEDS: INSULIN ASPART PER UNIT SC SCH ×4 (10:06→22:16)
[2022-08-10] MEDS: LANTUS PER UNIT CHARGE SQ SCH ×2 (10:09→22:16)
[2022-08-10] MEDS: allopurinoL 100 MG TAB PO SCH (10:10)
[2022-08-10] MEDS: APIXABAN 5 MG TABLET PO SCH ×2 (10:10→22:15)
[2022-08-10] MEDS: hydrALAZINE HCL 25 MG TAB PO SCH ×3 (10:10→22:15)
[2022-08-10] MEDS: ACETAMINOPHEN 325 MG TAB PO PRN (10:12)
[2022-08-10] MEDS: PANTOprazole 40 MG TAB PO SCH (10:13)
[2022-08-10] MEDS: rOPINIRole HCL 1 MG TABLET PO SCH ×4 (10:13→22:17)
[2022-08-10] MEDS: rOPINIRole HCL 2 MG TABLET PO SCH ×4 (10:13→22:17)
[2022-08-10] MEDS: ROSUVASTATIN CALCIUM 20 MG TAB PO SCH (10:13)
[2022-08-10 10:59] LABS: BUN Creatinine Ratio 28.7 (10-20); Calcium 8.7 mg/dl (8.5-10.1); Est GFR (African American) 24.8 ml/min; Est GFR (Non-African American) 21.4 ml/min; Potassium 3.7 mmol/L (3.5-5.1)
[2022-08-10] MEDS ORDERED: FUROSEMIDE 40 MG/4 ML VIAL IV ONE (13:47)
--- NOTE | 2022-08-10 15:41 | Heart Failure Consultation ---
Date of Consultation August 10, 2022 Assessment & Plan (1) (HFpEF) heart failure with preserved ejection fraction: (2) Right ventricular dysfunction: (3) Atrial fibrillation: (4) CAD (coronary artery disease): (5) Obesity: (6) Pulmonary hypertension: (7) Sleep apnea: Plan 1. HFpEF/RV dysfunction: She remains hypervolemic on exam. She is diuresing well on IV Lasix. She did not get it this am but did get a dose this afternoon. Pulmonary symptoms improving but she continues to have increased lower extremity edema. BNP mildly elevated at 140. Would continue to diurese until her creatinine bumps. Kidney function and electrolytes are stable. Spironolactone on hold due to hyponatremia. Continue to monitor kidney function and potassium. Patient is unable to do daily weights at home which has made her volume management challenging. Would consider additional inpatient rehab on discharge.Low sodium diet. Strict I&Os. Standing weights if able. 2. Tricuspid regurgitation: Continue to monitor. 3. Atrial fibrillation: Asymptomatic. Continue rate control with Metoprolol. Continue anti-coagulation. 4. CAD: No anginal symptoms. Continue medical therapy. 5. JASON: Encourage CPAP compliance. 6. Hypertension: Controlled. Continue current medical therapy. 7. Pulmonary hypertension: Severe. Continue diuretics as above. Consider sleep study if she hasn't had one. 8. Hyponatremia: Recommend fluid restriction. Holding Spironolactone. Disposition: Recommend close outpatient follow up after discharge. History of Present Illness Attending Physician: Mal Sorenson History of Present Illness Ms. Ramires is a 76-year-old female with a history including TIA, morbid obesity, paraplegia, CHF, coronary artery disease status post CABG, obstructive sleep apnea noncompliant with CPAP and history of neuroendocrine tumor of the right middle lobe status post resection in 2016. She's currently admitted for hypervolemia. Dr. Ramírez and Dr. Hernandez are her primary cardiologists. Recent cardiac studies: 1. Echocardiogram: 09/24/20- Normal LV size with low normal systolic function. EF 50-55%. No regional wall motion abnormalities. Septal flattening suggests RV overload. Moderate LVH. Normal RV size with severely reduced systolic function. Severe left atrial dilation. Mild . Mild MR. Mild-moderate TR. Moderate pulmonary hypertension. RVSP 58 mmHg. 2. 11/02/21 Echo: [place] LV dilation. mild LVH. Mildly reduced biv systolic function. EF 45-50% Moderate left and mild right atrial dilation. Mild-moderate . Mild to mod MR. Mild TR. Normal RVSP. Probable elevated CVP. Patient was admitted on 08/08/22. She presented with progressive dyspnea and increasing lower extremity edema. She was transitioned to [facility] the day before due to difficulty with ambulation. She was initiated on diuretics with good response. She is resting comfortably and is visiting with her . She reports feeling improved today. She is breathing more comfortably and has weaned to room air. She continues to have ongoing lower extremity edema. She is net negative 2 L. Weight is 244 lb. She slept well with her head elevated. She denies chest pain, cough, or palpitations. Allergies Allergy/AdvReac Type Severity Reaction Status Date / Time metoclopramide [From Reglan] Allergy Mild "went Verified 08/08/22 17:51 crazy" NSAIDS (Non-Steroidal Allergy Unknown UNK? Verified 08/08/22 17:51 Anti-Inflamma DENIES SOB. capsaicin AdvReac Severe SHORTNESS Verified 08/08/22 17:51 OF BREATH diclofenac AdvReac Severe SHORTNESS Verified 08/08/22 17:51 OF BREATH Home Medications Medication Instructions Recorded Confirmed Type Calcium Carb-Mag Cl 112mg-64mg 1 tab PO TID 08/08/22 08/08/22 History acetaminophen 325 mg tablet 650 mg PO Q4 PRN PAIN 1-3 SCALE 08/08/22 08/08/22 History (Tylenol) albuterol sulfate 90 mcg/actuation 1 puff inhalation Q6 PRN Shortness 08/08/22 08/08/22 History aerosol inhaler (Ventolin HFA) Of Breath Or Wheezing allopurinol 100 mg tablet 100 mg PO DAILY 08/08/22 08/08/22 History amitriptyline 50 mg tablet 50 mg PO DAILY 08/08/22 08/08/22 History amlodipine 5 mg tablet 5 mg PO DAILY 08/08/22 08/08/22 History apixaban 5 mg tablet (Eliquis) 5 mg PO Q12 08/08/22 08/08/22 History atorvastatin 40 mg tablet 80 mg PO HS 08/08/22 08/08/22 History cholecalciferol (vitamin D3) 125 125 mcg PO DAILY 08/08/22 08/08/22 History mcg (5,000 unit) tablet (Vitamin D3) docusate sodium 100 mg capsule 100 mg PO BID 08/08/22 08/08/22 History hydralazine 25 mg tablet 25 mg PO Q8 08/08/22 08/08/22 History insulin glargine 100 unit/mL 35 unit subcut BID 08/08/22 08/08/22 History subcutaneous solution insulin regular human 100 unit/mL 1 sliding scale dose subcut 08/08/22 08/08/22 History injection solution (Humulin R USEASDIRECTD Regular U-100 Insulin) magnesium hydroxide 400 mg/5 mL 0 ml PO DAILY PRN Constipation 08/08/22 08/08/22 History oral suspension (Milk of Magnesia) metoprolol succinate 25 mg 25 mg PO DAILY 08/08/22 08/08/22 History tablet,extended release 24 hr nitroglycerin 0.4 mg sublingual 0.4 mg sublingual DIRECTED PRN 08/08/22 08/08/22 History tablet (Nitrostat) Chest Pain pantoprazole 40 mg tablet,delayed 40 mg PO DAILY 08/08/22 08/08/22 History release polyethylene glycol 3350 17 gram 17 g PO DAILY PRN Constipation 08/08/22 08/08/22 History oral powder packet (Miralax) ropinirole 5 mg tablet 5 mg PO QID 08/08/22 08/08/22 History sennosides 8.6 mg-docusate sodium 1 tab-cap PO .QLUNCH PRN 08/08/22 08/08/22 History 50 mg tablet (Senokot-S) Constipation Patient History Medical History (Updated 08/10/22 @ 15:53 by Melania French PA-C) Acute dehydration Acute hypoxemic respiratory failure Acute on chronic diastolic (congestive) heart failure Acute osteomyelitis of toe of left foot Acute UTI (urinary tract infection) Acute UTI (urinary tract infection) Alteration in tactile sense Anemia Aortic stenosis MILD-MOD per 08/2019 echo, but NO SIGNIFICANT STENOSIS noted on 10/12/19 echo. Atrial fibrillation On Eliquis Bronchitis CAD (coronary artery disease) s/p CABG x 2 in 2012. CAD has remained quiescent since then. Follows with Dr. Hernandez, who cleared the patient for lumbar surgery 07/2019. CHF exacerbation Chronic kidney disease, stage 3 CKD (chronic kidney disease) stage 4, GFR 15-29 ml/min Clostridium difficile infection DX [facility] 12/2018 @ [facility]. Stool NEGATIVE 05/25/19. Diabetes mellitus, type 2 IDDM Diabetic foot ulcer Diabetic foot ulcer associated with type 2 diabetes mellitus Following with wound clinic [facility]. Diabetic ulcer of left heel associated with diabetes mellitus due to underlying condition DVT prophylaxis Dysphagia Dysphagia Fatty liver Fever Gout Graves disease Hypertension Hypoglycemia Indwelling Soto catheter present Leucocytosis Lumbar spinal stenosis Severe at L4-5. 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 Lump in neck Lung cancer S/P RM lobectomy 2015, follows with Dr. Perkins. 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 Traumatic wound Vaginal discharge, non-hemorrhagic Venous stasis ulcer of right lower leg with edema of right lower leg Surgical History Fusion of spine lumbar (07/2019) at [facility] --- uneventful surgery/anesthesia and hospitalization, but patient developed subsequent LE paraplegia. 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 History of appendectomy History of bilateral knee replacement History of bronchoscopy History of cardiac cath 2012 - [facility] - [place] - NO STENTS/ANGIOPLASTY -- > CABG History of cholecystectomy History of colonoscopy 11/2018 [facility] History of esophagogastroduodenoscopy (EGD) 11/2018 [facility] History of hysterectomy with oophorectomy KEARA with BSO History of lobectomy of lung RML History of ovarian cystectomy History of surgery Right VATS PROCEDURE History of tubal ligation Hx of CABG 2012 - - [place] [facility] 2 VESSELS Family History Daughter Family history of diabetes mellitus Mother Heart disease Hypertension Myocardial infarction Father Hypertension Other Diabetes Denies family history of Ovarian cancer Prostate cancer Crohn's disease Breast cancer Colorectal cancer Ulcerative colitis Social History Smoking Status: Former smoker Tobacco Type: Cigarettes Years Smoked: 20; Cigarettes Per Day: 10; Number of Years Since Quit: 8; Second Hand Exposure: No; Hx Alcohol Use: No Hx Substance Use: No Preferred Language: Uzbek Communication Ability: Effective Visual Impairment: No Limitations Hearing Ability: Normal Splunk Dashboard Developer Required: No Beliefs That Will Affect Care: None marital status: Current Living Situation: Spouse Current Living Situation Comment: Live with . current occupational status: retired How many Children do You have: 5 Feels Safe at Home: Yes Childhood Exposure to Second-Hand Smoke: No Dental Care, Regularly: No Physical Activity Frequency: Does not Exercise Seatbelt Use: always Sunscreen Use: No Assistive Devices: CPAP, Hospital Bed, Mechanical Lift, Walker and Wheelchair Physical Exam Physical Exam: Constitutional: Alert, oriented, in no acute distress HEENT: Head is atraumatic and normocephalic. EOMs intact. Sclera anicteric. Face is symmetric. No perioral cyanosis. Mucous membranes moist. Neck: Supple, + JVD. Pulmonary: Normal respiratory effort, bibasilar crackles. Cardiac: Regular rate and rhythm. Normal S1 and S2, no gallops, no rubs, no murmurs Extremities: 2+ radial pulses bilaterally. 2+ posterior tibialis pulses bilaterally. 1+ pitting edema. No cyanosis or clubbing. Abdomen: Normal bowel sounds, soft, non-tender, no abdominal mass palpated Skin: Normal skin color, turgor, and pigmentation, no rash, no skin lesions Neurological: Patient is awake, alert, and oriented. Pleasant and cooperative. Answers questions appropriately. Speech is clear. Results & Data ([facility]) Vital Signs (Past 12 Hours) Vital Signs Temp Pulse Pulse Resp BP BP Pulse Ox 08/10/22 15:02 53 L 08/10/22 14:42 98.1 F 52 L 20 125/64 96 08/10/22 08:00 57 L 08/10/22 11:39 08/10/22 11:06 97.7 F 57 L 20 151/70 H 93 08/10/22 10:17 121/65 08/10/22 07:52 97.5 F L 48 L 20 92/51 L 96 08/10/22 04:00 98.2 F 63 18 135/62 93 Pulse Ox O2 Del Method O2 Flow Rate 08/10/22 15:02 08/10/22 14:42 Room Air 08/10/22 08:00 08/10/22 11:39 90 0 08/10/22 11:06 Room Air 08/10/22 10:17 08/10/22 07:52 Room Air 08/10/22 04:00 Room Air Coding Level of Care Code 08192 Initial In Care Lvl 3 Diagnoses (HFpEF) heart failure with preserved ejection fraction I50.30 Right ventricular dysfunction I51.9 Atrial fibrillation I48.20 Atrial fibrillation type: unspecified chronic CAD (coronary artery disease) I25.10 Coronary Disease-Associated Artery/Lesion type: [place] artery [place] vs. transplanted heart: [place] heart Associated angina: without angina Obesity E66.9 Pulmonary hypertension I27.20 Sleep apnea G47.30 (1) Atrial fibrillation Atrial fibrillation type: unspecified chronic Qualified Code(s): I48.20 - Chronic atrial fibrillation, unspecified (2) CAD (coronary artery disease) Coronary Disease-Associated Artery/Lesion type: [place] artery [place] vs. transplanted heart: [place] heart Associated angina: without angina Qualified Code(s): I25.10 - Atherosclerotic heart disease of [place] coronary artery without angina pectoris
--- NOTE | 2022-08-10 17:36 | Hospitalist Progress Note ---
Date of Service August 10, 2022 Assessment & Plan (1) CHF (congestive heart failure): Plan: Acute on chronic diastolic heart failure. Not sure how she declined so quickly. Daughter mostly concerned about abdomen. No baseline weight for her as she cannot stand and does not use home scales. - Lasix 40 mg IV BID initially, held PM dose on 08/09 will repeat blood work in AM. will consult CHF clinic. - Monitor bed weights, I&Os - Telemetry -patient continues to be volume overloaded. will order IV diuretics and monitor her labs (2) Hyponatremia: Plan: Hypervolemic hyponatremia -> Likely due to her CHF, worsen by her spironolactone. Hyperkalemia likely from spironolactone & KCl. - Hold spironolactone - Hold KCl - Monitor (3) Indwelling Soto catheter present: Plan: Question of acute UTI on admission due to some blood around suprapubic cath site; however, says it often bleeds when she is moved around as it pulls the cath. (She is on anticoagulation for afib.) Draining freely at present. Last changed on 07/14/2022. - Plan to change out while inpatient. - Monitor (4) CKD (chronic kidney disease) stage 4, GFR 15-29 ml/min: Plan: Baseline Cr ~2.1. On admission, Cr up to 2.3, but not really SRINI. Likely cardiorenal. - Hold spironolactone - Continue Lasix - Monitor (5) Type 2 diabetes mellitus with kidney complication, with long-term current use of insulin: Plan: A1c was 6.6% during last admission. - Continue home Lantus at reduced dose (30 units BID instead of 35 units) to account for lower calorie intake in the hospital - Sliding scale insulin (6) CAD (coronary artery disease): Plan: Per Dr. Hernandez's note from 04/2022: CAD s/p CABG x 2 Vessels (RANDHAWA to LAD, SVG to PDA) 07/31/13. - Continue home beta-jody, statin - Hold spironolactone for hyponatremia (7) Atrial fibrillation: Plan: EKG on admission shows bradycardia with a junctional rhythm. Compared to EKG on 08/02/2022 (and even back to 2020), I do not see any differences. - Continue home Eliquis - Continue home beta-jody (8) Anemia: Plan: Chronic. Likely due to anemia of chronic disease and CKD. - Monitor FULL CODE - Per patient with family in agreement. Admission and Anticipated Discharge Date Admission Date: August 08, 2022 Subjective Patient reports having swelling of her right leg Review of Systems Review of Systems: All systems reviewed & are unremarkable except as noted in HPI & below Physical Exam Constitutional: WD/WN, vitals as above Eyes: EOM intact bilaterally; no conjunctival abnormality ENMT: external ear and nose normal, oropharynx normal Neck: trachea midline, no thyromegaly normal visual inspection Respiratory: normal respiratory effort, lungs clear to auscultation no respiratory distress Cardiovascular: Rate/Rhythm: regular rhythm and + bradycardic Extremities: + edema Gastrointestinal (Abdomen): Inspection/Auscultation: + abdomen distended and + abdominal edema (Mild anasarca); + abdomen abnormal to inspection Percussion/Palpation: abdomen soft; abdomen nontender, no guarding and abdomen not rigid Musculoskeletal: no cyanosis or clubbing, extremities motor strength 5/5 Skin: no rashes, warm and dry Neurologic: moves all extremities and awake Psychiatric: Orientation: alert, oriented to person and cooperative Results & Data Results & Data ([facility]) Vital Signs (Past 12 Hours) Vital Signs Temp Pulse Pulse Resp BP BP Pulse Ox 08/10/22 15:02 53 L 08/10/22 14:42 36.7 C 52 L 20 125/64 96 08/10/22 08:00 57 L 08/10/22 11:39 08/10/22 11:06 36.5 C 57 L 20 151/70 H 93 08/10/22 10:17 121/65 08/10/22 07:52 36.4 C L 48 L 20 92/51 L 96 Pulse Ox O2 Del Method O2 Flow Rate 08/10/22 15:02 08/10/22 14:42 Room Air 08/10/22 08:00 08/10/22 11:39 90 0 08/10/22 11:06 Room Air 08/10/22 10:17 08/10/22 07:52 Room Air PG Care Time/CCT Total # of Minutes Spent Total Time Spent with Patient: Total time spent is greater than 50% in coordination of care (as documented) at patient's floor/unit and/or counseling patient: Coding Level of Care Code 53722 Subseq Hosp Care Lvl 2 Diagnoses CHF (congestive heart failure) I50.9 Hyponatremia E87.1 Indwelling Soto catheter present Z96.0 CKD (chronic kidney disease) stage 4, GFR 15-29 ml/min N18.4 Type 2 diabetes mellitus with kidney complication, with long-term current use of insulin E11.29; Z79.4 CAD (coronary artery disease) I25.10 Associated angina: without angina Coronary Disease-Associated Artery/Lesion type: [place] artery [place] vs. transplanted heart: [place] heart Atrial fibrillation I48.20 Atrial fibrillation type: unspecified chronic Anemia D64.9 (1) CAD (coronary artery disease) Associated angina: without angina Coronary Disease-Associated Artery/Lesion type: [place] artery [place] vs. transplanted heart: [place] heart Qualified Code(s): I25.10 - Atherosclerotic heart disease of [place] coronary artery without angina pectoris (2) Atrial fibrillation Atrial fibrillation type: unspecified chronic Qualified Code(s): I48.20 - Chronic atrial fibrillation, unspecified
[2022-08-10] MEDS: AMITRIPTYLINE HCL 50 MG TAB PO SCH (22:15)
[2022-08-11 07:31] LABS: Hematocrit (blood only) 24.5 % (34.1-44.9); Hemoglobin 7.8 g/dl (12.0-16.0); Mean Corpuscular Hemoglobin 27.1 pg (25.0-34.0); Mean Corpuscular Hgb Conc 31.8 g/dL (32.0-36.0); Mean Corpuscular Volume 85.1 fL (80.0-100.0); Mean Platelet Volume 8.6 fL (9.4-12.3); Platelet Count 205 K/uL (130-400); RDW Coefficient of Variation 17.2 % (11.5-14.5); RDW Standard Deviation 53.8 fL (36.4-46.3); Red Blood Count 2.88 M/uL (3.93-5.22); White Blood Count 5.94 K/ul (4.8-10.8)
[2022-08-11 07:52] LABS: BUN Creatinine Ratio 28.8 (10-20); Calcium 8.7 mg/dl (8.5-10.1); Creatinine Clr Calc Pharmacy 28.6 ml/min; Est GFR (African American) 26.4 ml/min; Est GFR (Non-African American) 22.8 ml/min; Potassium 3.6 mmol/L (3.5-5.1)
[2022-08-11] MEDS: INSULIN ASPART PER UNIT SC SCH ×4 (09:27→20:44)
[2022-08-11] MEDS: ROSUVASTATIN CALCIUM 20 MG TAB PO SCH (09:35)
[2022-08-11] MEDS: APIXABAN 5 MG TABLET PO SCH ×2 (09:35→20:05)
[2022-08-11] MEDS: ACETAMINOPHEN 325 MG TAB PO PRN ×2 (09:38→20:07)
[2022-08-11] MEDS: allopurinoL 100 MG TAB PO SCH (09:38)
[2022-08-11] MEDS: FUROSEMIDE 40 MG/4 ML VIAL IV SCH ×2 (09:39→17:40)
[2022-08-11] MEDS: PANTOprazole 40 MG TAB PO SCH (09:39)
[2022-08-11] MEDS: hydrALAZINE HCL 25 MG TAB PO SCH ×3 (09:39→20:05)
[2022-08-11] MEDS: rOPINIRole HCL 2 MG TABLET PO SCH ×4 (09:40→20:06)
[2022-08-11] MEDS: rOPINIRole HCL 1 MG TABLET PO SCH ×4 (09:40→20:06)
[2022-08-11] MEDS: LANTUS PER UNIT CHARGE SQ SCH ×2 (09:40→20:43)
--- NOTE | 2022-08-11 17:38 | Hospitalist Progress Note ---
Date of Service August 11, 2022 Assessment & Plan (1) CHF (congestive heart failure): Plan: Acute on chronic diastolic heart failure. Not sure how she declined so quickly. Daughter mostly concerned about abdomen. No baseline weight for her as she cannot stand and does not use home scales. - Lasix 40 mg IV BID initially, held PM dose on 08/09 will repeat blood work in AM. will consult CHF clinic. - Monitor bed weights, I&Os - Telemetry -patient continues to be volume overloaded. continue IV diuretics on 08/11 (2) Hyponatremia: Plan: Hypervolemic hyponatremia -> Likely due to her CHF, worsen by her spironolactone. Hyperkalemia likely from spironolactone & KCl. - Hold spironolactone - Hold KCl - Monitor (3) Indwelling Soto catheter present: Plan: Question of acute UTI on admission due to some blood around suprapubic cath site; however, says it often bleeds when she is moved around as it pulls the cath. (She is on anticoagulation for afib.) Draining freely at present. Last changed on 07/14/2022. - Plan to change out while inpatient. - Monitor (4) CKD (chronic kidney disease) stage 4, GFR 15-29 ml/min: Plan: Baseline Cr ~2.1. On admission, Cr up to 2.3, but not really SRINI. Likely cardiorenal. - Hold spironolactone - Continue Lasix - Monitor (5) Type 2 diabetes mellitus with kidney complication, with long-term current use of insulin: Plan: A1c was 6.6% during last admission. - Continue home Lantus at reduced dose (30 units BID instead of 35 units) to account for lower calorie intake in the hospital - Sliding scale insulin (6) CAD (coronary artery disease): Plan: Per Dr. Hernandez's note from 04/2022: CAD s/p CABG x 2 Vessels (RANDHAWA to LAD, SVG to PDA) 07/31/13. - Continue home beta-jody, statin - Hold spironolactone for hyponatremia (7) Atrial fibrillation: Plan: EKG on admission shows bradycardia with a junctional rhythm. Compared to EKG on 08/02/2022 (and even back to 2020), I do not see any differences. - Continue home Eliquis - Continue home beta-jody (8) Anemia: Plan: Chronic. Likely due to anemia of chronic disease and CKD. - Monitor FULL CODE - Per patient with family in agreement. Admission and Anticipated Discharge Date Admission Date: August 08, 2022 Subjective 76 yo female reports feeling well. She has no new complaints. Review of Systems Review of Systems: All systems reviewed & are unremarkable except as noted in HPI & below Physical Exam Constitutional: WD/WN, vitals as above Eyes: EOM intact bilaterally; no conjunctival abnormality ENMT: external ear and nose normal, oropharynx normal Neck: trachea midline, no thyromegaly normal visual inspection Respiratory: normal respiratory effort, lungs clear to auscultation no respiratory distress Cardiovascular: Rate/Rhythm: regular rhythm and + bradycardic Extremities: + edema Gastrointestinal (Abdomen): Inspection/Auscultation: + abdomen distended and + abdominal edema (Mild anasarca); + abdomen abnormal to inspection Percussion/Palpation: abdomen soft; abdomen nontender, no guarding and abdomen not rigid Musculoskeletal: no cyanosis or clubbing, extremities motor strength 5/5 Skin: no rashes, warm and dry Neurologic: moves all extremities and awake Psychiatric: Orientation: alert, oriented to person and cooperative Results & Data Results & Data ([facility]) Vital Signs (Past 12 Hours) Vital Signs Temp Pulse Resp BP BP Pulse Ox O2 Del Method 08/11/22 15:18 36.5 C 52 L 20 144/72 H 92 Room Air 08/11/22 11:05 36.8 C 59 L 20 148/55 H 96 Room Air 08/11/22 08:10 36.5 C 71 20 129/61 95 Room Air PG Care Time/CCT Total # of Minutes Spent Total Time Spent with Patient: Total time spent is greater than 50% in coordination of care (as documented) at patient's floor/unit and/or counseling patient: Coding Level of Care Code 87628 Subseq Hosp Care Lvl 2 Diagnoses CHF (congestive heart failure) I50.9 Hyponatremia E87.1 Indwelling [place] catheter present Z96.0 CKD (chronic kidney disease) stage 4, GFR 15-29 ml/min N18.4 Type 2 diabetes mellitus with kidney complication, with long-term current use of insulin E11.29; Z79.4 CAD (coronary artery disease) I25.10 Associated angina: without angina Coronary Disease-Associated Artery/Lesion type: [place] artery [place] vs. transplanted heart: [place] heart Atrial fibrillation I48.20 Atrial fibrillation type: unspecified chronic Anemia D64.9 Time Spent (min) 25 (1) CAD (coronary artery disease) Associated angina: without angina Coronary Disease-Associated Artery/Lesion type: [place] artery [place] vs. transplanted heart: [place] heart Qualified Code(s): I25.10 - Atherosclerotic heart disease of [place] coronary artery without angina pectoris (2) Atrial fibrillation Atrial fibrillation type: unspecified chronic Qualified Code(s): I48.20 - Chr onic atrial fibrillation, unspecified
[2022-08-11] MEDS: AMITRIPTYLINE HCL 50 MG TAB PO SCH (20:05)
[2022-08-12 08:10] LABS: Hematocrit (blood only) 24.8 % (34.1-44.9); Hemoglobin 7.7 g/dl (12.0-16.0); Mean Corpuscular Hemoglobin 26.7 pg (25.0-34.0); Mean Corpuscular Volume 86.1 fL (80.0-100.0); Mean Platelet Volume 8.6 fL (9.4-12.3); Platelet Count 191 K/uL (130-400); RDW Coefficient of Variation 17.2 % (11.5-14.5); RDW Standard Deviation 54.1 fL (36.4-46.3); Red Blood Count 2.88 M/uL (3.93-5.22); White Blood Count 5.69 K/ul (4.8-10.8)
[2022-08-12] MEDS: APIXABAN 5 MG TABLET PO SCH ×2 (08:10→21:11)
[2022-08-12] MEDS: hydrALAZINE HCL 25 MG TAB PO SCH ×3 (08:10→21:12)
[2022-08-12] MEDS: rOPINIRole HCL 2 MG TABLET PO SCH ×4 (08:10→21:13)
[2022-08-12] MEDS: rOPINIRole HCL 1 MG TABLET PO SCH ×4 (08:10→21:14)
[2022-08-12] MEDS: allopurinoL 100 MG TAB PO SCH (08:10)
[2022-08-12] MEDS: ROSUVASTATIN CALCIUM 20 MG TAB PO SCH (08:11)
[2022-08-12] MEDS: PANTOprazole 40 MG TAB PO SCH (08:11)
[2022-08-12] MEDS: FUROSEMIDE 40 MG/4 ML VIAL IV SCH ×2 (08:12→16:50)
[2022-08-12] MEDS: INSULIN ASPART PER UNIT SC SCH ×4 (08:22→20:51)
[2022-08-12 08:49] LABS: BUN Creatinine Ratio 29.3 (10-20); Calcium 8.6 mg/dl (8.5-10.1); Creatinine Clr Calc Pharmacy 31.3 ml/min; Est GFR (African American) 29.3 ml/min; Est GFR (Non-African American) 25.3 ml/min; Potassium 3.4 mmol/L (3.5-5.1)
[2022-08-12] MEDS: LANTUS PER UNIT CHARGE SQ SCH ×2 (09:18→21:12)
[2022-08-12] MEDS: ACETAMINOPHEN 325 MG TAB PO PRN ×2 (13:40→22:45)
[2022-08-12] MEDS: AMITRIPTYLINE HCL 50 MG TAB PO SCH (21:11)
[2022-08-12] MEDS: POTASSIUM CHLORIDE CRTAB 20 MEQ TABCR PO SCH (21:13)
--- NOTE | 2022-08-12 22:19 | Hospitalist Progress Note ---
Date of Service August 12, 2022 Assessment & Plan (1) CHF (congestive heart failure): Plan: Acute on chronic diastolic heart failure. Not sure how she declined so quickly. Daughter mostly concerned about abdomen. No baseline weight for her as she cannot stand and does not use home scales. - Lasix 40 mg IV BID initially, held PM dose on 08/09 will repeat blood work in AM. will consult CHF clinic. - Monitor bed weights, I&Os - Telemetry -patient continues to be volume overloaded. continue IV diuretics on 08/12 creatinine has been stable. (2) Hyponatremia: Plan: Hypervolemic hyponatremia -> Likely due to her CHF, worsen by her spironolactone. Hyperkalemia likely from spironolactone & KCl. - Hold spironolactone - Hold KCl - Monitor (3) Indwelling Soto catheter present: Plan: Question of acute UTI on admission due to some blood around suprapubic cath site; however, says it often bleeds when she is moved around as it pulls the cath. (She is on anticoagulation for afib.) Draining freely at present. Last changed on 07/14/2022. - Plan to change out while inpatient. - Monitor (4) CKD (chronic kidney disease) stage 4, GFR 15-29 ml/min: Plan: Baseline Cr ~2.1. On admission, Cr up to 2.3, but not really SRINI. Likely cardiorenal. - Hold spironolactone - Continue Lasix - Monitor (5) Type 2 diabetes mellitus with kidney complication, with long-term current use of insulin: Plan: A1c was 6.6% during last admission. - Continue home Lantus at reduced dose (30 units BID instead of 35 units) to account for lower calorie intake in the hospital - Sliding scale insulin (6) CAD (coronary artery disease): Plan: Per Dr. Hernandez's note from 04/2022: CAD s/p CABG x 2 Vessels (RANDHAWA to LAD, SVG to PDA) 07/31/13. - Continue home beta-jody, statin - Hold spironolactone for hyponatremia (7) Atrial fibrillation: Plan: EKG on admission shows bradycardia with a junctional rhythm. Compared to EKG on 08/02/2022 (and even back to 2020), I do not see any differences. - Continue home Eliquis - Continue home beta-jody (8) Anemia: Plan: Chronic. Likely due to anemia of chronic disease and CKD. - Monitor FULL CODE - Per patient with family in agreement. Admission and Anticipated Discharge Date Admission Date: August 08, 2022 Subjective 76 yo female reports feeling better. She continues to have edema in lower extremity. Review of Systems Review of Systems: All systems reviewed & are unremarkable except as noted in HPI & below Physical Exam Constitutional: WD/WN, vitals as above Eyes: EOM intact bilaterally; no conjunctival abnormality ENMT: external ear and nose normal, oropharynx normal Neck: trachea midline, no thyromegaly normal visual inspection Respiratory: normal respiratory effort, lungs clear to auscultation no respiratory distress Cardiovascular: Rate/Rhythm: regular rhythm and + bradycardic Extremities: + edema Gastrointestinal (Abdomen): Inspection/Auscultation: + abdomen distended and + abdominal edema (Mild anasarca); + abdomen abnormal to inspection Percussion/Palpation: abdomen soft; abdomen nontender, no guarding and abdomen not rigid Musculoskeletal: no cyanosis or clubbing, extremities motor strength 5/5 Skin: no rashes, warm and dry Neurologic: moves all extremities and awake Psychiatric: Orientation: alert, oriented to person and cooperative Results & Data Results & Data ([facility]) Vital Signs (Past 12 Hours) Vital Signs Temp Pulse Pulse Resp BP Pulse Ox O2 Del Method 08/12/22 18:36 36.4 C 50 L 20 126/69 94 Room Air 08/12/22 17:34 54 L 08/12/22 15:32 36.8 C 53 L 18 136/54 L 98 Room Air 08/12/22 10:40 36.7 C 80 18 126/68 95 Room Air 08/12/22 10:30 Room Air PG Care Time/CCT Total # of Minutes Spent Total Time Spent with Patient: Total time spent is greater than 50% in coordination of care (as documented) at patient's floor/unit and/or counseling patient: Coding Level of Care Code 91176 Subseq Hosp Care Lvl 2 Diagnoses CHF (congestive heart failure) I50.9 Hyponatremia E87.1 Indwelling Soto catheter present Z96.0 CKD (chronic kidney disease) stage 4, GFR 15-29 ml/min N18.4 Type 2 diabetes mellitus with kidney complication, with long-term current use of insulin E11.29; Z79.4 CAD (coronary artery disease) I25.10 Associated angina: without angina Coronary Disease-Associated Artery/Lesion type: [place] artery [place] vs. transplanted heart: [place] heart Atrial fibrillation I48.20 Atrial fibrillation type: unspecified chronic Anemia D64.9 Time Spent (min) 25 (1) CAD (coronary artery disease) Associated angina: without angina Coronary Disease-Associated Artery/Lesion type: [place] artery [place] vs. transplanted heart: [place] heart Qualified Code(s): I25.10 - Atherosclerotic heart disease of [place] coronary artery without angina pectoris (2) Atrial fibrillation Atrial fibrillation type: unspecified chronic Qualified Code(s): I48.20 - Chronic atrial fibrillation, unspecified
[2022-08-13] MEDS: INSULIN ASPART PER UNIT SC SCH ×4 (08:45→21:49)
[2022-08-13] MEDS: LANTUS PER UNIT CHARGE SQ SCH ×2 (08:46→20:19)
[2022-08-13] MEDS: rOPINIRole HCL 1 MG TABLET PO SCH ×4 (08:46→21:49)
[2022-08-13] MEDS: POTASSIUM CHLORIDE CRTAB 20 MEQ TABCR PO SCH ×3 (08:46→20:21)
[2022-08-13] MEDS: APIXABAN 5 MG TABLET PO SCH ×2 (08:47→20:21)
[2022-08-13] MEDS: hydrALAZINE HCL 25 MG TAB PO SCH ×3 (08:47→20:21)
[2022-08-13] MEDS: PANTOprazole 40 MG TAB PO SCH (08:47)
[2022-08-13] MEDS: rOPINIRole HCL 2 MG TABLET PO SCH ×4 (08:47→20:21)
[2022-08-13] MEDS: allopurinoL 100 MG TAB PO SCH (08:47)
[2022-08-13] MEDS: FUROSEMIDE 40 MG/4 ML VIAL IV SCH ×2 (08:47→17:17)
[2022-08-13] MEDS: ROSUVASTATIN CALCIUM 20 MG TAB PO SCH (08:47)
[2022-08-13 10:52] LABS: Hemoglobin 8.1 g/dl (12.0-16.0); Mean Corpuscular Hemoglobin 26.6 pg (25.0-34.0); Mean Corpuscular Hgb Conc 31.2 g/dL (32.0-36.0); Mean Corpuscular Volume 85.2 fL (80.0-100.0); Mean Platelet Volume 8.6 fL (9.4-12.3); Platelet Count 198 K/uL (130-400); RDW Coefficient of Variation 17.2 % (11.5-14.5); RDW Standard Deviation 53.7 fL (36.4-46.3); Red Blood Count 3.05 M/uL (3.93-5.22); White Blood Count 5.16 K/ul (4.8-10.8)
[2022-08-13] MEDS: ACETAMINOPHEN 325 MG TAB PO PRN ×2 (10:53→20:19)
[2022-08-13 11:24] LABS: Calcium 8.6 mg/dl (8.5-10.1); Creatinine Clr Calc Pharmacy 31.7 ml/min; Est GFR (African American) 29.9 ml/min; Est GFR (Non-African American) 25.8 ml/min; Potassium 3.5 mmol/L (3.5-5.1)
[2022-08-13] MEDS: AMITRIPTYLINE HCL 50 MG TAB PO SCH (20:21)
[2022-08-13] MEDS: PANTOprazole 40 MG in SYRINGE 0 ML IV SCH (20:22)
--- NOTE | 2022-08-13 22:06 | Hospitalist Progress Note ---
Date of Service August 13, 2022 Assessment & Plan (1) CHF (congestive heart failure): Plan: Acute on chronic diastolic heart failure. Not sure how she declined so quickly. Daughter mostly concerned about abdomen. No baseline weight for her as she cannot stand and does not use home scales. - Lasix 40 mg IV BID initially, held PM dose on 08/09 will repeat blood work in AM. will consult CHF clinic. - Monitor bed weights, I&Os - Telemetry -patient continues to be volume overloaded. continue IV diuretics on 08/13 creatinine has been stable. (2) Hyponatremia: Plan: Hypervolemic hyponatremia -> Likely due to her CHF, worsen by her spironolactone. Hyperkalemia likely from spironolactone & KCl. - Hold spironolactone - Hold KCl - Monitor (3) Indwelling S[place] catheter present: Plan: Question of acute UTI on admission due to some blood around suprapubic cath site; however, says it often bleeds when she is moved around as it pulls the cath. (She is on anticoagulation for afib.) Draining freely at present. Last changed on 07/14/2022. - Plan to change out while inpatient. - Monitor (4) CKD (chronic kidney disease) stage 4, GFR 15-29 ml/min: Plan: Baseline Cr ~2.1. On admission, Cr up to 2.3, but not really SRINI. Likely cardiorenal. - Hold spironolactone - Continue Lasix - Monitor (5) Type 2 diabetes mellitus with kidney complication, with long-term current use of insulin: Plan: A1c was 6.6% during last admission. - Continue home Lantus at reduced dose (30 units BID instead of 35 units) to account for lower calorie intake in the hospital - Sliding scale insulin (6) CAD (coronary artery disease): Plan: Per Dr. Hernandez's note from 04/2022: CAD s/p CABG x 2 Vessels ([place] to LAD, SVG to PDA) 07/31/13. - Continue home beta-jody, statin - Hold spironolactone for hyponatremia (7) Atrial fibrillation: Plan: EKG on admission shows bradycardia with a junctional rhythm. Compared to EKG on 08/02/2022 (and even back to 2020), I do not see any differences. - Continue home Eliquis - Continue home beta-jody (8) Anemia: Plan: Chronic. Likely due to anemia of chronic disease and CKD. - Monitor -consult GI due to low transferrin saturation FULL CODE - Per patient with family in agreement. Admission and Anticipated Discharge Date Admission Date: August 08, 2022 Subjective 76 yo female reports lower extremity edema. Patient reports dark stools Review of Systems Review of Systems: All systems reviewed & are unremarkable except as noted in HPI & below Physical Exam Constitutional: WD/WN, vitals as above Eyes: EOM intact bilaterally; no conjunctival abnormality ENMT: external ear and nose normal, oropharynx normal Neck: trachea midline, no thyromegaly normal visual inspection Respiratory: normal respiratory effort, lungs clear to auscultation no respiratory distress Cardiovascular: Rate/Rhythm: regular rhythm and + bradycardic Extremities: + edema Gastrointestinal (Abdomen): Inspection/Auscultation: + abdomen distended and + abdominal edema (Mild anasarca); + abdomen abnormal to inspection Percussion/Palpation: abdomen soft; abdomen nontender, no guarding and abdomen not rigid Musculoskeletal: no cyanosis or clubbing, extremities motor strength 5/5 Skin: no rashes, warm and dry Neurologic: moves all extremities and awake Psychiatric: Orientation: alert, oriented to person and cooperative Results & Data Results & Data ([facility]) Vital Signs (Past 12 Hours) Vital Signs Temp Pulse Resp BP Pulse Ox Pulse Ox O2 Del Method 08/13/22 19:29 36.8 C 56 L 18 145/63 H 91 Room Air 08/13/22 15:44 36.6 C 59 L 20 166/62 H 95 Room Air 08/13/22 11:45 36.8 C 56 L 18 126/68 95 Room Air 08/13/22 14:00 96 08/13/22 11:43 Room Air O2 Del Method 08/13/22 19:29 08/13/22 15:44 08/13/22 11:45 08/13/22 14:00 Room Air 08/13/22 11:43 PG Care Time/CCT Total # of Minutes Spent Total Time Spent with Patient: Total time spent is greater than 50% in coordination of care (as documented) at patient's floor/unit and/or counseling patient: Coding Level of Care Code 91342 Subseq Hosp Care Lvl 3 Diagnoses CHF (congestive heart failure) I50.9 Hyponatremia E87.1 Indwelling S[place] catheter present Z96.0 CKD (chronic kidney disease) stage 4, GFR 15-29 ml/min N18.4 Type 2 diabetes mellitus with kidney complication, with long-term current use of insulin E11.29; Z79.4 CAD (coronary artery disease) I25.10 Associated angina: without angina Coronary Disease-Associated Artery/Lesion type: [place] artery [place] vs. transplanted heart: [place] heart Atrial fibrillation I48.20 Atrial fibrillation type: unspecified chronic Anemia D64.9 Time Spent (min) 35 (1) CAD (coronary artery disease) Associated angina: without angina Coronary Disease-Associated Artery/Lesion type: [place] artery [place] vs. transplanted heart: [place] heart Qualified Code(s): I25.10 - Atherosclerotic heart disease of [place] coronary artery without angina pectoris (2) Atrial fibrillation Atrial fibrillation type: unspecified chronic Qualified Code(s): I48.20 - Chronic atrial fibrillation, unspecified
[2022-08-14] MEDS: INSULIN ASPART PER UNIT SC SCH ×4 (07:45→20:30)
[2022-08-14] MEDS: allopurinoL 100 MG TAB PO SCH (08:14)
[2022-08-14] MEDS: APIXABAN 5 MG TABLET PO SCH ×2 (08:14→20:32)
[2022-08-14] MEDS: ROSUVASTATIN CALCIUM 20 MG TAB PO SCH (08:14)
[2022-08-14] MEDS: POTASSIUM CHLORIDE CRTAB 20 MEQ TABCR PO SCH ×2 (08:14→13:16)
[2022-08-14] MEDS: rOPINIRole HCL 1 MG TABLET PO SCH ×4 (08:14→20:34)
[2022-08-14] MEDS: rOPINIRole HCL 2 MG TABLET PO SCH ×4 (08:15→20:35)
[2022-08-14] MEDS: hydrALAZINE HCL 25 MG TAB PO SCH ×3 (08:15→20:32)
[2022-08-14] MEDS: FUROSEMIDE 40 MG/4 ML VIAL IV SCH ×2 (08:15→16:05)
[2022-08-14] MEDS: PANTOprazole 40 MG in SYRINGE 0 ML IV SCH ×2 (09:04→20:33)
--- NOTE | 2022-08-14 09:39 | Billing Data ---
Date of Service August 14, 2022 Coding Level of Care Code 81450 Initial Inpt Care Lvl 3
[2022-08-14 09:55] LABS: Hemoglobin 7.6 g/dl (12.0-16.0); Mean Corpuscular Hgb Conc 31.7 g/dL (32.0-36.0); Mean Corpuscular Volume 85.1 fL (80.0-100.0); Mean Platelet Volume 8.3 fL (9.4-12.3); Platelet Count 189 K/uL (130-400); RDW Coefficient of Variation 17.2 % (11.5-14.5); Red Blood Count 2.82 M/uL (3.93-5.22)
[2022-08-14] MEDS: LANTUS PER UNIT CHARGE SQ SCH ×2 (10:13→20:43)
[2022-08-14 10:20] LABS: Albumin Globulin Ratio 1.5 (0.9-2); Albumin Level 3.5 gm/dl (3.4-5.0); BUN Creatinine Ratio 26.2 (10-20); Bilirubin,Total 0.9 mg/dl (0.2-1.0); Calcium 8.5 mg/dl (8.5-10.1); Creatinine Clr Calc Pharmacy 31.8 ml/min; Est GFR (African American) 29.5 ml/min; Est GFR (Non-African American) 25.5 ml/min; Globulin 2.4 gm/dl (2.5-4.0); Potassium 3.7 mmol/L (3.5-5.1); Total Protein 5.9 gm/dl (6.0-8.3)
--- NOTE | 2022-08-14 11:45 | Consultation Report ---
GASTROENTEROLOGY CONSULTATION RACE: . ATTENDING PHYSICIAN: Mal Sorenson MD CONSULTING PHYSICIAN: Rory Goodman DO REASON FOR CONSULTATION: Anemia, low transferrin fat, dark stools. HISTORY OF PRESENT ILLNESS: Radha Ramires is a 76-year-old female with an extensive past medical history that includes stage IV chronic kidney disease, lung cancer, coronary artery disease, diabetes, atrial fibrillation and acute on chronic diastolic heart failure, who [facility]. It should be noted that she was discharged on following an admission for acute on chronic heart failure. Upon arrival to the ER, she was complai guilherme of bilateral lower extremity edema and leg pain. She was subsequently admitted. She was seen b y Cardiology and was being diuresed with IV Lasix. She was noted on admission to have an H and H of 8.4 and 27.2 and it should be noted that this was unchanged from her discharge diagnosis from 022. We were consulted yesterday for chronic anemia and the low transferrin saturation. At the time that I saw the patient today, she had no GI complaints. She denied any abdominal pain, reflux sympt oms, dysphagia, odynophagia, hematemesis, melena, hematochezia. She denies any NSAID use. She state s that she has had no abdominal pain, diarrhea or constipation. She states that she does take Proton ix 40 mg daily, though has not had any GI symptoms in quite some time. She cannot recall the last ti me that she has had either an EGD or colonoscopy in the past, though she does state that she has been compliant with colonoscopy screening recommendations. As per Melvina Arana, who saw her during a previ ous admission, she did have a colonoscopy in 2013, though I did not have findings of this exam. Her biggest complaint today when I was examining her was of bilateral lower extremity pain, mainly on the right, but she denied any further complaints. She states that her shortness of breath is improved. PAST MEDICAL HISTORY: Significant for chronic kidney disease, stage IV, cystitis, heart failure with preserved ejection fraction, hypoxemia requiring supplemental oxygen, chronic anemia, restless legs syndrome, spinal stenosis, lung cancer, multiple lung nodules, obstructive sleep apnea, TIA, osteoart hritis, history of VA, hyperlipidemia, IPMN, osteopenia, vitamin D deficiency, diabetes complicated b y diabetic foot ulcer, history of stage II pressure ulcer of the left buttock, indwelling Soto sher ter, paraparesis of both lower limbs, long-term anticoagulant therapy, neuroendocrine tumor, diastoli c heart failure, atrial fibrillation, coronary artery disease, obesity, hypertension, pulmonary hyper tension, paraplegia, multinodular thyroid, Graves' disease. PAST SURGICAL HISTORY: Includes fusion spine, third left toe amputation, appendectomy, bilateral kne e replacement, bronchoscopy, history of cardiac cath, cholecystectomy, KEARA/BSO, right middle lobectom y of the lung, ovarian cystectomy, history of tubal ligation, CABG in 2013 at [place], 2-vessel dise ase. ALLERGIES: REGLAN, NSAIDS, CAPSAICIN AND DICLOFENAC. MEDICATIONS: At present, Tylenol 650 mg p.o. every q.4h. p.r.n., albuterol via inhaler every 6 hours p.r.n., allopurinol 100 mg p.o. q.a.m., amitriptyline 50 mg p.o. at bedtime, Eliquis 5 mg p.o. b.i.d ., Lasix 40 mg IV b.i.d., hydralazine 25 mg p.o. t.i.d., sliding scale insulin, insulin glargine 20 u nits subcutaneously b.i.d., Zofran 4 mg IV q.4h. p.r.n., Protonix 40 mg IV b.i.d., Requip 4 mg p.o. q .i.d., Requip 1 mg p.o. q.i.d., Crestor 40 mg p.o. daily. SOCIAL HISTORY: She is . She lives with her . She has a 14-ndck-hcpz history of smok ing. She currently does not smoke. She denies any alcohol or illicit drug use. FAMILY HISTORY: Negative for GI malignancy or inflammatory bowel disease. REVIEW OF SYSTEMS: Negative x12 system review other than pertinent positives listed in the HPI. PHYSICAL EXAMINATION: VITAL SIGNS: Include a temperature of 36.6, pulse 57, respirations 18, blood pressure 136/51, pulse ox 92% on room air. GENERAL: Obese, cooperative, pleasant, chronically ill-appearing, no acute distress. HEENT: Normocephalic, atraumatic. EYES: Pupils equal, round. Extraocular muscles are intact. Sclerae are nonicteric. NECK: Soft and supple. CHEST: Decreased breath sounds at bilateral bases. CARDIOVASCULAR: Irregularly irregular. No appreciable murmurs. ABDOMEN: Soft, nontender, nondistended. Positive bowel sounds. There is no appreciable hepatosplen omegaly. EXTREMITIES: Bilateral lower extremity edema. PSYCHIATRIC: Normal affect. Normal mood. Radiographic studies and laboratory studies were reviewed in the HPI. IMPRESSION: A 76-year-old female with an extensive past medical history including chronic kidney disease, diabetes, coronary artery disease, heart failure, and chronic anemia with a low trans ela saturation. PLAN: At the present time, the patient is having no GI symptoms. I will continue her on Protonix 40 mg IV b.i.d. at this time. I do not see any need or role for invasive testing as the risks far outw eigh the benefit in this patient. I would maximize medical therapy and recommend outpatient workup w hen the patient's acute issues resolve. I will follow her clinical course and make further recommend ations as needed. Consideration could be given to IV iron replacement therapy during her hospitaliza tion. Once again, thanks for allowing me to participate in the care of this patient. If you have any furth er questions, please do not hesitate in contacting me. Job ID: [id number]
[2022-08-14] MEDS: ACETAMINOPHEN 325 MG TAB PO PRN ×2 (11:53→16:07)
--- NOTE | 2022-08-14 11:57 | Heart Failure Progress Note ---
Date of Service August 14, 2022 Assessment & Plan (1) (HFpEF) heart failure with preserved ejection fraction: (2) Right ventricular dysfunction: (3) Atrial fibrillation: (4) CAD (coronary artery disease): (5) Obesity: (6) Pulmonary hypertension: (7) Sleep apnea: Plan 1. HFpEF/RV dysfunction: She remains hypervolemic on exam. She is diuresing well on IV Lasix. Pulmonary symptoms improved but she continues to have increased lower extremity edema. BNP mildly elevated at 140. Would continue to diurese until her creatinine bumps. Consider increasing to 80 mg IV BID with a goal of negative 1-2 L per day. Kidney function and electrolytes are stable. Spironolactone on hold due to hyponatremia. Continue to monitor kidney function and potassium. Patient is unable to do daily weights at home which has made her volume management challenging. Would consider additional inpatient rehab on discharge.Low sodium diet. Strict I&Os. Standing weights if able. 2. Tricuspid regurgitation: Continue to monitor. 3. Atrial fibrillation: Asymptomatic. Continue rate control with Metoprolol. Continue anti-coagulation. 4. CAD: No anginal symptoms. Continue medical therapy. 5. JASON: Encourage CPAP compliance. 6. Hypertension: Controlled. Continue current medical therapy. 7. Pulmonary hypertension: Severe. Continue diuretics as above. Consider sleep study if she hasn't had one. 8. Hyponatremia: Recommend fluid restriction. Holding Spironolactone. 9. Anemia: GI consulted. Iron deficiency may be contributing to slow diuretic response. Disposition: Recommend close outpatient follow up after discharge. Admission and Anticipated Discharge Date Admission Date: August 08, 2022 Subjective Patient resting comfortably in bed. She is not requiring any supplemental O2. She reports her breathing is improving. She continues to have lower extremity edema. She slept well with her head elevated. She continues to have a good response to IV diuretics, net negative 5L so far. Weights are likely inaccurate. She denies chest pain, cough, palpitations. Physical Exam Physical Exam: Constitutional: Alert, oriented, in no acute distress HEENT: Head is atraumatic and normocephalic. EOMs intact. Sclera anicteric. Face is symmetric. No perioral cyanosis. Mucous membranes moist. Neck: Supple, + JVD. Pulmonary: Normal respiratory effort, bibasilar crackles. Cardiac: Regular rate and rhythm. Normal S1 and S2, no gallops, no rubs, no murmurs Extremities: 2+ radial pulses bilaterally. 2+ posterior tibialis pulses bilaterally. 2+ pitting edema. No cyanosis or clubbing. Abdomen: Normal bowel sounds, soft, non-tender, no abdominal mass palpated Skin: Normal skin color, turgor, and pigmentation, no rash, no skin lesions Neurological: Patient is awake, alert, and oriented. Pleasant and cooperative. Answers questions appropriately. Speech is clear. Results & Data ([facility]) Vital Signs (Past 12 Hours) Vital Signs Temp Pulse Pulse Resp BP Pulse Ox O2 Del Method 08/14/22 11:09 98.4 F 56 L 20 148/68 H 92 Room Air 08/14/22 08:15 97.9 F 57 L 18 136/51 L 92 Room Air 08/14/22 07:25 Room Air 08/14/22 07:19 56 L 08/14/22 03:21 Room Air 08/14/22 02:52 50 L PG Care Time/CCT Total # of Minutes Spent Total Time Spent with Patient: Total time spent is greater than 50% in coordination of care (as documented) at patient's floor/unit and/or counseling patient: Coding Level of Care Code 60267 Subseq Hosp Care Lvl 3 Diagnoses (HFpEF) heart failure with preserved ejection fraction I50.30 Right ventricular dysfunction I51.9 Atrial fibrillation I48.20 Atrial fibrillation type: unspecified chronic CAD (coronary artery disease) I25.10 Coronary Disease-Associated Artery/Lesion type: [place] artery [place] vs. transplanted heart: [place] heart Associated angina: without angina Obesity E66.9 Pulmonary hypertension I27.20 Sleep apnea G47.30 (1) Atrial fibrillation Atrial fibrillation type: unspecified chronic Qualified Code(s): I48.20 - Chronic atrial fibrillation, unspecified (2) CAD (coronary artery disease) Coronary Disease-Associated Artery/Lesion type: [place] artery [place] vs. transplanted heart: [place] heart Associated angina: without angina Qualified Code(s): I25.10 - Atherosclerotic heart disease of [place] coronary artery without angina pectoris
[2022-08-14] MEDS: AMITRIPTYLINE HCL 50 MG TAB PO SCH (20:31)
--- NOTE | 2022-08-14 21:07 | Hospitalist Progress Note ---
Date of Service August 14, 2022 Assessment & Plan (1) CHF (congestive heart failure): Plan: Acute on chronic diastolic heart failure. Not sure how she declined so quickly. Daughter mostly concerned about abdomen. No baseline weight for her as she cannot stand and does not use home scales. - Lasix 40 mg IV BID initially, held PM dose on 08/09 will repeat blood work in AM. will consult CHF clinic. - Monitor bed weights, I&Os - Telemetry -patient continues to be volume overloaded. continue IV diuretics on 08/[address] on fluid restriction <1500 (08/14) creatinine has been stable. (2) Hyponatremia: Plan: Hypervolemic hyponatremia -> Likely due to her CHF, worsen by her spironolactone. Hyperkalemia likely from spironolactone & KCl. - Hold spironolactone - Hold KCl - Monitor (3) Indwelling [place] catheter present: Plan: Question of acute UTI on admission due to some blood around suprapubic cath site; however, says it often bleeds when she is moved around as it pulls the cath. (She is on anticoagulation for afib.) Draining freely at present. Last changed on 07/14/2022. - Plan to change out while inpatient. - Monitor (4) CKD (chronic kidney disease) stage 4, GFR 15-29 ml/min: Plan: Baseline Cr ~2.1. On admission, Cr up to 2.3, but not really SRINI. Likely cardiorenal. - Hold spironolactone - Continue Lasix - Monitor (5) Type 2 diabetes mellitus with kidney complication, with long-term current use of insulin: Plan: A1c was 6.6% during last admission. - Continue home Lantus at reduced dose (30 units BID instead of 35 units) to account for lower calorie intake in the hospital - Sliding scale insulin (6) CAD (coronary artery disease): Plan: Per Dr. Hernandez's note from 04/2022: CAD s/p CABG x 2 Vessels (RANDHAWA to LAD, SVG to PDA) 07/31/13. - Continue home beta-jody, statin - Hold spironolactone for hyponatremia (7) Atrial fibrillation: Plan: EKG on admission shows bradycardia with a junctional rhythm. Compared to EKG on 08/02/2022 (and even back to 2020), I do not see any differences. - Continue home Eliquis - Continue home beta-jody (8) Anemia: Plan: Chronic. Likely due to anemia of chronic disease and CKD. - Monitor -consult GI due to low transferrin saturation FULL CODE - Per patient with family in agreement. Admission and Anticipated Discharge Date Admission Date: August 08, 2022 Subjective 76 yo female report no new symptoms. Review of Systems Review of Systems: All systems reviewed & are unremarkable except as noted in HPI & below Physical Exam Constitutional: WD/WN, vitals as above Eyes: EOM intact bilaterally; no conjunctival abnormality ENMT: external ear and nose normal, oropharynx normal Neck: trachea midline, no thyromegaly normal visual inspection Respiratory: normal respiratory effort, lungs clear to auscultation no res piratory distress Cardiovascular: Rate/Rhythm: regular rhythm and + bradycardic Extremities: + edema Gastrointestinal (Abdomen): Inspection/Auscultation: + abdomen distended and + abdominal edema (Mild anasarca); + abdomen abnormal to inspection Perc ussion/Palpation: abdomen soft; abdomen nontender, no guarding and abdomen not rigid Musculoskeletal: no cyanosis or clubbing, extremities motor strength 5/5 Skin: no rashes, warm and dry Neurologic: moves all extremities and awake Psychiatric: Orientation: alert, oriented to person and cooperative Results & Data Results & Data ([facility]) Vital Signs (Past 12 Hours) Vital Signs Temp Pulse Pulse Resp BP BP Pulse Ox 08/14/22 19:54 36.5 C 50 L 18 126/66 93 08/14/22 15:44 36.5 C 52 L 20 139/60 92 08/14/22 15:27 57 L 08/14/22 11:09 36.9 C 56 L 20 148/68 H 92 O2 Del Method 08/14/22 19:54 Room Air 08/14/22 15:44 Room Air 08/14/22 15:27 08/14/22 11:09 Room Air PG Care Time/CCT Total # of Minutes Spent Total Time Spent with Patient: Total time spent is greater than 50% in coordination of care (as documented) at patient's floor/unit and/or counseling patient: Coding Level of Care Code 75270 Subseq Hosp Care Lvl 2 Diagnoses CHF (congestive heart failure) I50.9 Hyponatremia E87.1 Indwelling [place] catheter present Z96.0 CKD (chronic kidney disease) stage 4, GFR 15-29 ml/min N18.4 Type 2 diabetes mellitus with kidney complication, with long-term current use of insulin E11.29; Z79.4 CAD (coronary artery disease) I25.10 Associated angina: without angina Coronary Disease-Associated Artery/Lesion type: [place] artery [place] vs. transplanted heart: [place] heart Atrial fibrillation I48.20 Atrial fibrillation type: unspecified chronic Anemia D64.9 Time Spent (min) 35 (1) CAD (coronary artery disease) Associated angina: without angina Coronary Disease-Associated Artery/Lesion type: [place] artery [place] vs. transplanted heart: [place] heart Qualified Code(s): I25.10 - Atherosclerotic heart disease of [place] coronary artery without angina pectoris (2) Atrial fibrillation Atrial fibrillation type: unspecified chronic Qualified Code(s): I48.20 - Chronic atrial fibrillation, unspecified
[2022-08-15] MEDS: allopurinoL 100 MG TAB PO SCH (08:29)
[2022-08-15] MEDS: rOPINIRole HCL 1 MG TABLET PO SCH ×4 (08:29→20:37)
[2022-08-15] MEDS: rOPINIRole HCL 2 MG TABLET PO SCH ×4 (08:29→20:38)
[2022-08-15] MEDS: hydrALAZINE HCL 25 MG TAB PO SCH ×3 (08:30→20:37)
[2022-08-15] MEDS: ROSUVASTATIN CALCIUM 20 MG TAB PO SCH (08:30)
[2022-08-15] MEDS: APIXABAN 5 MG TABLET PO SCH ×2 (08:30→20:38)
[2022-08-15] MEDS: LANTUS PER UNIT CHARGE SQ SCH ×2 (08:38→20:37)
[2022-08-15] MEDS: INSULIN ASPART PER UNIT SC SCH ×4 (08:38→20:22)
[2022-08-15] MEDS: FUROSEMIDE 40 MG/4 ML VIAL IV SCH ×2 (08:39→17:38)
[2022-08-15] MEDS: PANTOprazole 40 MG TAB PO SCH ×2 (13:41→20:38)
[2022-08-15] MEDS: ACETAMINOPHEN 325 MG TAB PO PRN ×2 (13:53→22:33)
[2022-08-15] MEDS: AMITRIPTYLINE HCL 50 MG TAB PO SCH (20:38)
--- NOTE | 2022-08-15 20:44 | Hospitalist Progress Note ---
Date of Service August 15, 2022 Assessment & Plan (1) CHF (congestive heart failure): Plan: Acute on chronic diastolic heart failure. Not sure how she declined so quickly. Daughter mostly concerned about abdomen. No baseline weight for her as she cannot stand and does not use home scales. - Lasix 40 mg IV BID initially, held PM dose on 08/09 will repeat blood work in AM. will consult CHF clinic. - Monitor bed weights, I&Os - Telemetry -patient continues to be volume overloaded. continue IV diuretics on 08/[address] on fluid restriction <1500 (08/14) creatinine has been stable. Patient is close to 8 liters net negative fluid at end of 08/15 Ordered nick wrap on right leg. Has had imaging such as U/S doppler in right leg in past as this appears to be subacute/chronic. Goal is to diurese as much as possible prior to discharge. (2) Hyponatremia: Plan: Hypervolemic hyponatremia -> Likely due to her CHF, worsen by her spironolactone. Hyperkalemia likely from spironolactone & KCl. - Hold spironolactone - Hold KCl - Monitor (3) Indwelling [place] catheter present: Plan: Question of acute UTI on admission due to some blood around suprapubic cath site; however, says it often bleeds when she is moved around as it pulls the cath. (She is on anticoagulation for afib.) Draining freely at present. Last changed on 07/14/2022. - Plan to change out while inpatient. - Monitor (4) CKD (chronic kidney disease) stage 4, GFR 15-29 ml/min: Plan: Baseline Cr ~2.1. On admission, Cr up to 2.3, but not really SRINI. Likely cardiorenal. - Hold spironolactone - Continue Lasix - Monitor (5) Type 2 diabetes mellitus with kidney complication, with long-term current use of insulin: Plan: A1c was 6.6% during last admission. - Continue home Lantus at reduced dose (30 units BID instead of 35 units) to account for lower calorie intake in the hospital - Sliding scale insulin (6) CAD (coronary artery disease): Plan: Per Dr. Hernandez's note from 04/2022: CAD s/p CABG x 2 Vessels (RAND[place]WA to LAD, SVG to PDA) 07/31/13. - Continue home beta-jody, statin - Hold spironolactone for hyponatremia (7) Atrial fibrillation: Plan: EKG on admission shows bradycardia with a junctional rhythm. Compared to EKG on 08/02/2022 (and even back to 2020), I do not see any differences. - Continue home Eliquis - Continue home beta-jody (8) Anemia: Plan: Chronic. Likely due to anemia of chronic disease and CKD. - Monitor -consult GI due to low transferrin saturation -Appreciate input: continue PPI BID FULL CODE - Per patient with family in agreement. Admission and Anticipated Discharge Date Admission Date: August 08, 2022 Subjective Patient reports breathing well over past few days. Main complaint remains her swelling and pain of her right lower leg. Review of Systems Review of Systems: All systems reviewed & are unremarkable except as noted in HPI & below Physical Exam Constitutional: WD/WN, vitals as above Eyes: EOM intact bilaterally; no conjunctival abnormality ENMT: external ear and nose normal, oropharynx normal Neck: trachea midline, no thyromegaly normal visual inspection Respiratory: normal respiratory effort, lungs clear to auscultation no respiratory distress Cardiovascular: Rate/Rhythm: regular rhythm and + bradycardic Extremities: + edema Gastrointestinal (Abdomen): Inspection/Auscultation: + abdomen distended and + abdominal edema (Mild anasarca); + abdomen abnormal to inspection Percussion/Palpation: abdomen soft; abdomen nontender, no guarding and abdomen not rigid Musculoskeletal: no cyanosis or clubbing, extremities motor strength 5/5 Skin: no rashes, warm and dry Neurologic: moves all extremities and awake Psychiatric: Orientation: alert, oriented to person and cooperative Lymphatic: right leg has significant swelling compared to left. Results & Data Results & Data ([facility]) Vital Signs (Past 12 Hours) Vital Signs Temp Pulse Resp BP BP Pulse Ox O2 Del Method 08/15/22 18:38 36.5 C 88 18 155/63 H 92 08/15/22 15:53 36.3 C L 52 L 18 109/47 L 94 08/15/22 11:54 36.7 C 56 L 20 124/66 92 Room Air PG Care Time/CCT Total # of Minutes Spent Total Time Spent with Patient: Total time spent is greater than 50% in coordination of care (as documented) at patient's floor/unit and/or counseling patient: Coding Level of Care Code 67217 Subseq Hosp Care Lvl 3 Diagnoses CHF (congestive heart failure) I50.9 Hyponatremia E87.1 Indwelling [place] catheter present Z96.0 CKD (chronic kidney disease) stage 4, GFR 15-29 ml/min N18.4 Type 2 diabetes mellitus with kidney complication, with long-term current use of insulin E11.29; Z79.4 CAD (coronary artery disease) I25.10 Associated angina: without angina Coronary Disease-Associated Artery/Lesion type: [place] artery [place] vs. transplanted heart: [place] heart Atrial fibrillation I48.20 Atrial fibrillation type: unspecified chronic Anemia D64.9 (1) CAD (coronary artery disease) Associated angina: without angina Coronary Disease-Associated Artery/Lesion type: [place] artery [place] vs. transplanted heart: [place] heart Qualified Code(s): I25.10 - Atherosclerotic heart disease of [place] coronary artery without angina pectoris (2) Atrial fibrillation Atrial fibrillation type: unspecified chronic Qualified Code(s): I48.20 - Chronic atrial fibrillation, unspecified
[2022-08-16] MEDS: rOPINIRole HCL 2 MG TABLET PO SCH ×4 (08:02→20:38)
[2022-08-16] MEDS: PANTOprazole 40 MG TAB PO SCH ×2 (08:02→20:38)
[2022-08-16] MEDS: APIXABAN 5 MG TABLET PO SCH ×2 (08:02→20:36)
[2022-08-16] MEDS: rOPINIRole HCL 1 MG TABLET PO SCH ×4 (08:02→20:39)
[2022-08-16] MEDS: allopurinoL 100 MG TAB PO SCH (08:03)
[2022-08-16] MEDS: hydrALAZINE HCL 25 MG TAB PO SCH ×3 (08:03→20:36)
[2022-08-16] MEDS: ROSUVASTATIN CALCIUM 20 MG TAB PO SCH (08:03)
[2022-08-16] MEDS: ACETAMINOPHEN 325 MG TAB PO PRN ×3 (08:10→21:46)
[2022-08-16] MEDS: FUROSEMIDE 40 MG/4 ML VIAL IV SCH ×2 (08:11→17:19)
[2022-08-16] MEDS: LANTUS PER UNIT CHARGE SQ SCH ×2 (08:11→20:37)
[2022-08-16] MEDS: INSULIN ASPART PER UNIT SC SCH ×4 (08:12→20:38)
[2022-08-16 08:50] LABS: Hematocrit (blood only) 24.5 % (34.1-44.9); Hemoglobin 7.7 g/dl (12.0-16.0); Mean Corpuscular Hemoglobin 26.9 pg (25.0-34.0); Mean Corpuscular Hgb Conc 31.4 g/dL (32.0-36.0); Mean Corpuscular Volume 85.7 fL (80.0-100.0); Mean Platelet Volume 8.7 fL (9.4-12.3); Platelet Count 203 K/uL (130-400); RDW Coefficient of Variation 17.2 % (11.5-14.5); RDW Standard Deviation 54.6 fL (36.4-46.3); Red Blood Count 2.86 M/uL (3.93-5.22); Reticulocytes # 0.06 10^6/uL (0.02-0.10); White Blood Count 4.61 K/ul (4.8-10.8)
[2022-08-16 09:21] LABS: BUN Creatinine Ratio 22.6 (10-20); Calcium 8.9 mg/dl (8.5-10.1); Creatinine Clr Calc Pharmacy 30.8 ml/min; Est GFR (African American) 29.5 ml/min; Est GFR (Non-African American) 25.5 ml/min; Potassium 3.4 mmol/L (3.5-5.1)
[2022-08-16 09:36] LABS: Folate (Folic Acid) 20.96 ng/ml (>5.38)
--- NOTE | 2022-08-16 12:05 | Hospitalist Progress Note ---
Date of Service August 16, 2022 Assessment & Plan (1) CHF (congestive heart failure): Plan: Acute on chronic diastolic heart failure. Not sure how she declined so quickly. Daughter mostly concerned about abdomen. No baseline weight for her as she cannot stand and does not use home scales. - Continue Lasix 40 mg IV BID pending bump in Cr. SOB much improved but likely still has significant volume overload - Monitor bed weights, I&Os. at goal 1-1.5L net negative daily -patient continues to be volume overloaded. will place on fluid restriction <1500 (08/14) creatinine has been stable. Has had imaging such as U/S doppler in right leg in past as this appears to be subacute/chronic. Goal is to diurese as much as possible prior to discharge. (2) Hyponatremia: Plan: Hypervolemic hyponatremia -> Likely due to her CHF, worsen by her spironolactone. Hyperkalemia likely from spironolactone & KCl on admission - Hold spironolactone - 20 meq KCl given today for K 3.4 - Monitor (3) Indwelling [place] catheter present: Plan: Question of acute UTI on admission due to some blood around suprapubic cath site; however, says it often bleeds when she is moved around as it pulls the cath. (She is on anticoagulation for afib.) Draining freely at present. Last changed on 07/14/2022. - Plan to change out while inpatient. - Monitor (4) CKD (chronic kidney disease) stage 4, GFR 15-29 ml/min: Plan: Baseline Cr ~2.1. On admission, Cr up to 2.3, but not really SRINI. Likely cardiorenal. - Hold spironolactone - Continue Lasix - Monitor (5) Type 2 diabetes mellitus with kidney complication, with long-term current use of insulin: Plan: A1c was 6.6% during last admission. - Continue home Lantus at reduced dose (10 units BID instead of 35 units) to account for lower calorie intake in the hospital (hypoglycemia on 08/14) - Novolog: --Goal BSG Range: Low 100 mg/dL, High 140 mg/dL --Correction Factor: 30 mg/dL/unit --Carbohydrate ratio = 12 g/unit --BSGs ACHS if eating, q6h if npo (6) CAD (coronary artery disease): Plan: Per Dr. Hernandez's note from 04/2022: CAD s/p CABG x 2 Vessels (RANDHAWA to LAD, SVG to PDA) 07/31/13. - Continue home Eliquis, beta-jody, statin (7) Atrial fibrillation: Plan: EKG on admission shows bradycardia with a junctional rhythm. Compared to EKG on 08/02/2022 (and even back to 2020), I do not see any differences. - Continue home Eliquis - Continue home beta-jody (8) Anemia: Plan: Chronic. Likely due to anemia of chronic disease and CKD. - Monitor -consult GI due to low transferrin saturation -Appreciate input: continue PPI BID Plan VTE Prophylaxis - Eliquis Diet - heart healthy, T2DM, fluid restrict 1500ml Admission and Anticipated Discharge Date Admission Date: August 08, 2022 Subjective No shortness of breath at rest or chest pain. Shortness of breath continues on mild exertion but reportedly much better since admission. No orthopnea. Main concern is ongoing right leg pain from knee downwards. Associated with the swelling and worse over the week prior to admission. Not much improvement since coming in. US venous doppler negative for DVT. She denies any pain from her back radiating down leg. Generalized pain from her knee distally, especially on standing. Reportedly had knee replacement many years ago by Dr Dyer and had not had any problems with her knee s/p TKA. Planning on [facility] on discharge. Review of Systems Review of Systems: All systems reviewed & are unremarkable except as noted in Subjective Physical Exam Constitutional: WD/WN, vitals as above Eyes: + anicteric sclerae; normal pupil size ENMT: external ear and nose normal, oropharynx normal Respiratory: normal respiratory effort; no respiratory distress Auscultation: + crackles (bibasal); no diminished lung sounds, no rales, no rhonchi and no wheezes Cardiovascular: Rate/Rhythm: + bradycardic and + irregularly irregular Heart Sounds: no murmur Extremities: normal capillary refill and + pedal edema (2+ pitting edema); no calf tenderness Gastrointestinal (Abdomen): normal bowel sounds, soft, nontender, no hepatosplenomegaly Musculoskeletal: no cyanosis or clubbing, extremities motor strength 5/5 Skin: no rashes, warm and dry Neurologic: moves all extremities and awake; not confused Psychiatric: A+Ox3, euthymic affect Results & Data Results & Data ([facility]) Vital Signs (Past 12 Hours) Vital Signs Temp Pulse Pulse Resp BP BP Pulse Ox 08/16/22 11:29 36.6 C 53 L 20 136/53 L 94 08/16/22 07:39 08/16/22 07:21 36.7 C 46 L 16 139/68 94 08/16/22 07:12 47 L 08/16/22 02:57 36.3 C L 49 L 18 143/54 H 94 O2 Del Method 08/16/22 11:29 Room Air 08/16/22 07:39 Room Air 08/16/22 07:21 Room Air 08/16/22 07:12 08/16/22 02:57 Room Air PG Care Time/CCT Total # of Minutes Spent Total Time Spent with Patient: Total time spent is greater than 50% in coordination of care (as documented) at patient's floor/unit and/or counseling patient: Coding Level of Care Code 51698 Subseq Hosp Care Lvl 2 Diagnoses CHF (congestive heart failure) I50.9 Hyponatremia E87.1 Indwelling [place] catheter present Z96.0 CKD (chronic kidney disease) stage 4, GFR 15-29 ml/min N18.4 Type 2 diabetes mellitus with kidney complication, with long-term current use of insulin E11.29; Z79.4 CAD (coronary artery disease) I25.10 Associated angina: without angina Coronary Disease-Associated Artery/Lesion type: [place] artery [place] vs. transplanted heart: [place] heart Atrial fibrillation I48.20 Atrial fibrillation type: unspecified chronic Anemia D64.9 (1) CAD (coronary artery disease) Associated angina: without angina Coronary Disease-Associated Artery/Lesion type: [place] artery [place] vs. transplanted heart: [place] heart Qualified Code(s): I25.10 - Atherosclerotic heart disease of [place] coronary artery without angina pectoris (2) Atrial fibrillation Atrial fibrillation type: unspecified chronic Qualified Code(s): I48.20 - Chronic atrial fibrillation, unspecified
[2022-08-16] MEDS: AMITRIPTYLINE HCL 50 MG TAB PO SCH (20:35)
[2022-08-16] MEDS ORDERED: POTASSIUM CHLORIDE CRTAB 20 MEQ TABCR PO STA (21:12)
[2022-08-17] MEDS ORDERED: HYDROmorphone INJ 0.5 MG/0.5 ML SYR IV STA (00:14)
[2022-08-17] MEDS: LANTUS PER UNIT CHARGE SQ SCH ×2 (08:16→20:43)
[2022-08-17] MEDS: INSULIN ASPART PER UNIT SC SCH ×4 (08:16→20:43)
[2022-08-17] MEDS: ROSUVASTATIN CALCIUM 20 MG TAB PO SCH (08:17)
[2022-08-17] MEDS: rOPINIRole HCL 1 MG TABLET PO SCH ×4 (08:17→20:25)
[2022-08-17] MEDS: rOPINIRole HCL 2 MG TABLET PO SCH ×4 (08:17→20:24)
[2022-08-17] MEDS: FUROSEMIDE 40 MG/4 ML VIAL IV SCH ×2 (08:17→16:58)
[2022-08-17] MEDS: allopurinoL 100 MG TAB PO SCH (08:17)
[2022-08-17] MEDS: PANTOprazole 40 MG TAB PO SCH ×2 (08:18→20:25)
[2022-08-17] MEDS: hydrALAZINE HCL 25 MG TAB PO SCH ×3 (08:18→20:27)
[2022-08-17] MEDS: APIXABAN 5 MG TABLET PO SCH ×2 (08:18→20:26)
[2022-08-17] MEDS: ACETAMINOPHEN 325 MG TAB PO PRN ×2 (10:09→20:25)
[2022-08-17 11:03] LABS: BUN Creatinine Ratio 20.6 (10-20); Calcium 8.7 mg/dl (8.5-10.1); Creatinine Clr Calc Pharmacy 29.5 ml/min; Est GFR (Non-African American) 24.2 ml/min; Potassium 3.5 mmol/L (3.5-5.1)
[2022-08-17] MEDS: AMITRIPTYLINE HCL 50 MG TAB PO SCH (20:26)
--- NOTE | 2022-08-17 22:56 | Hospitalist Progress Note ---
Date of Service August 17, 2022 Assessment & Plan (1) (HFpEF) heart failure with preserved ejection fraction: Plan: Acute on chronic diastolic heart failure. Not sure how she declined so quickly. Daughter mostly concerned about abdomen. No baseline weight for her as she cannot stand and does not use home scales. - Continue Lasix 40 mg IV BID pending bump in Cr. SOB much improved but likely still has significant volume overload. Cr mildly elevated today - Monitor bed weights, I&Os. at goal 1-1.5L net negative daily. Negative balance is slowing down but still at goal. -patient continues to be volume overloaded. continue on fluid restriction <1500 (08/14) Goal is to diurese as much as possible prior to discharge. (2) Hyponatremia: Plan: Hypervolemic hyponatremia -> Likely due to her CHF, worsen by her spironolactone. Hyperkalemia likely from spironolactone & KCl on admission - Hold spironolactone - 20 meq KCl given today for K 3.4 - Monitor (3) Indwelling [place] catheter present: Plan: Question of acute UTI on admission due to some blood around suprapubic cath site; however, says it often bleeds when she is moved around as it pulls the cath. (She is on anticoagulation for afib.) Draining freely at present. Last changed on 07/14/2022. - Plan to change out while inpatient. - Monitor (4) CKD (chronic kidney disease) stage 4, GFR 15-29 ml/min: Plan: Baseline Cr ~2.1. On admission, Cr up to 2.3, but not really SRINI. Likely cardiorenal. - Hold spironolactone - Continue Lasix - Monitor (5) Type 2 diabetes mellitus with kidney complication, with long-term current use of insulin: Plan: A1c was 6.6% during last admission. - Continue home Lantus at reduced dose (10 units BID instead of 35 units) to account for lower calorie intake in the hospital (hypoglycemia on 08/14) - Novolog: --Goal BSG Range: Low 100 mg/dL, High 140 mg/dL --Correction Factor: 30 mg/dL/unit --Carbohydrate ratio = 12 g/unit --BSGs ACHS if eating, q6h if npo (6) CAD (coronary artery disease): Plan: Per Dr. Hernandez's note from 04/2022: CAD s/p CABG x 2 Vessels (RANDHAWA to LAD, SVG to PDA) 07/31/13. - Continue home Eliquis, beta-jody, statin (7) Atrial fibrillation: Plan: EKG on admission shows bradycardia with a junctional rhythm. Compared to EKG on 08/02/2022 (and even back to 2020), I do not see any differences. - Continue home Eliquis - Continue home beta-jody (8) Anemia: Plan: Chronic. Likely due to anemia of chronic disease and CKD. - Monitor -consult GI due to low transferrin saturation -Appreciate input: continue PPI BID Plan VTE Prophylaxis - Eliquis Diet - heart healthy, T2DM, fluid restrict 1500ml Admission and Anticipated Discharge Date Admission Date: August 08, 2022 Subjective Ongoing right leg pain. Has restless leg more in this side. Bilateral leg swelling remains similar. Cr mildly bumped but not significant and BUN decreasing. No shortness of breath or orthopnea. Review of Systems Review of Systems: All systems reviewed & are unremarkable except as noted in Subjective Physical Exam Constitutional: WD/WN, vitals as above Eyes: + anicteric sclerae; normal pupil size ENMT: external ear and nose normal, oropharynx normal Respiratory: normal respiratory effort; no respiratory distress Auscultation: + crackles (bibasal); no diminished lung sounds, no rales, no rhonchi and no wheezes Cardiovascular: Rate/Rhythm: + bradycardic and + irregularly irregular Heart Sounds: no murmur Extremities: normal capillary refill and + pedal edema (2+ pitting edema); no calf tenderness Gastrointestinal (Abdomen): normal bowel sounds, soft, nontender, no hepatosplenomegaly Musculoskeletal: no cyanosis or clubbing, extremities motor strength 5/5 Skin: no rashes, warm and dry Neurologic: moves all extremities and awake; not confused Psychiatric: A+Ox3, euthymic affect Results & Data Results & Data ([facility]) Vital Signs (Past 12 Hours) Vital Signs Temp Pulse Pulse Pulse Resp BP Pulse Ox 08/17/22 20:30 08/17/22 20:15 143/77 H 08/17/22 20:01 36.8 C 54 L 20 156/79 H 92 08/17/22 15:36 36.8 C 106 H 20 139/52 L 91 08/17/22 15:06 50 L 08/17/22 12:24 36.7 C 51 L 18 145/73 H 90 O2 Del Method 08/17/22 20:30 Room Air 08/17/22 20:15 08/17/22 20:01 Room Air 08/17/22 15:36 08/17/22 15:06 08/17/22 12:24 PG Care Time/CCT Total # of Minutes Spent Total Time Spent with Patient: Total time spent is greater than 50% in coordination of care (as documented) at patient's floor/unit and/or counseling patient: Coding Level of Care Code 69132 Subseq Hosp Care Lvl 2 Diagnoses (HFpEF) heart failure with preserved ejection fraction I50.30 Hyponatremia E87.1 Indwelling [place] catheter present Z96.0 CKD (chronic kidney disease) stage 4, GFR 15-29 ml/min N18.4 Type 2 diabetes mellitus with kidney complication, with long-term current use of insulin E11.29; Z79.4 CAD (coronary artery disease) I25.10 Associated angina: without angina Coronary Disease-Associated Artery/Lesion type: [place] artery [place] vs. transplanted heart: [place] heart Atrial fibrillation I48.20 Atrial fibrillation type: unspecified chronic Anemia D64.9 (1) CAD (coronary artery disease) Associated angina: without angina Coronary Disease-Associated Artery/Lesion type: [place] artery [place] vs. transplanted heart: [place] heart Qualified Code(s): I25.10 - Atherosclerotic heart disease of [place] coronary artery without angina pectoris (2) Atrial fibrillation Atrial fibrillation type: unspecified chronic Qualified Code(s): I48.20 - Chronic atrial fibrillation, unspecified
--- NOTE | 2022-08-18 01:42 | Communication Note ---
Date of Service: August 18, 2022 I was messaged about patient's right lower extremity pain. On exam she has some tenderness to palpation at the right ankle involving the malleoli and the Achilles areas. She has bilateral lower extremity edema but only the right has a reddish venous stasis like coloration change. Although patient has diabetes lower suspicion of neuropathy at this time. I will be increasing the Tylenol from 650 to 1000 mg. Not ordering venous duplex because patient is already anticoagulated. Most likely etiology is the edema. She has hx of diabetic foot ulcer, but that has healed.
[2022-08-18] MEDS: ACETAMINOPHEN 500 MG TAB PO PRN ×2 (03:28→20:18)
[2022-08-18 07:00] LABS: Hematocrit (blood only) 24.8 % (34.1-44.9); Hemoglobin 7.7 g/dl (12.0-16.0); Mean Corpuscular Hemoglobin 26.7 pg (25.0-34.0); Mean Corpuscular Volume 86.1 fL (80.0-100.0); Mean Platelet Volume 8.6 fL (9.4-12.3); Platelet Count 183 K/uL (130-400); RDW Coefficient of Variation 17.3 % (11.5-14.5); RDW Standard Deviation 54.3 fL (36.4-46.3); Red Blood Count 2.88 M/uL (3.93-5.22); White Blood Count 4.92 K/ul (4.8-10.8)
[2022-08-18 07:53] LABS: BUN Creatinine Ratio 20.9 (10-20); Calcium 8.8 mg/dl (8.5-10.1); Creatinine Clr Calc Pharmacy 29.3 ml/min; Est GFR (African American) 27.7 ml/min; Est GFR (Non-African American) 23.9 ml/min; Potassium 3.3 mmol/L (3.5-5.1)
[2022-08-18] MEDS: PANTOprazole 40 MG TAB PO SCH ×2 (08:19→20:38)
[2022-08-18] MEDS: hydrALAZINE HCL 25 MG TAB PO SCH ×3 (08:19→20:35)
[2022-08-18] MEDS: APIXABAN 5 MG TABLET PO SCH ×2 (08:19→20:36)
[2022-08-18] MEDS: rOPINIRole HCL 2 MG TABLET PO SCH ×4 (08:20→20:38)
[2022-08-18] MEDS: ROSUVASTATIN CALCIUM 20 MG TAB PO SCH (08:21)
[2022-08-18] MEDS: allopurinoL 100 MG TAB PO SCH (08:21)
[2022-08-18] MEDS: FUROSEMIDE 40 MG/4 ML VIAL IV SCH ×2 (08:22→17:19)
[2022-08-18] MEDS: LANTUS PER UNIT CHARGE SQ SCH ×2 (08:43→20:43)
[2022-08-18] MEDS: INSULIN ASPART PER UNIT SC SCH ×4 (08:43→20:42)
[2022-08-18] MEDS ORDERED: FUROSEMIDE 40 MG/4 ML VIAL IV SCH (09:00)
[2022-08-18] MEDS: rOPINIRole HCL 1 MG TABLET PO SCH ×4 (09:00→20:37)
[2022-08-18] MEDS ORDERED: POTASSIUM CHLORIDE CRTAB 20 MEQ TABCR PO STA (11:22)
[2022-08-18] MEDS: AMITRIPTYLINE HCL 50 MG TAB PO SCH (20:37)
[2022-08-18] MEDS ORDERED: MELATONIN 3 MG TAB PO PRN (21:30)
--- NOTE | 2022-08-18 21:55 | Hospitalist Progress Note ---
Date of Service August 18, 2022 Assessment & Plan (1) (HFpEF) heart failure with preserved ejection fraction: Plan: Acute on chronic diastolic heart failure. Not sure how she declined so quickly. Daughter mostly concerned about abdomen. No baseline weight for her as she cannot stand and does not use home scales. - Continue Lasix 40 mg IV BID pending bump in Cr. SOB much improved but likely still has significant volume overload. Cr mildly elevated today. Home dose 40mg PO BID. - Monitor bed weights, I&Os. at goal 1-1.5L net negative daily. Negative balance is slowing down but still at goal. - Cr starting to rise but not significantly continue on fluid restriction <1500 (08/14) Goal is to diurese as much as possible prior to discharge. (2) Hyponatremia: Plan: Hypervolemic hyponatremia -> Likely due to her CHF, worsen by her spironolactone. Hyperkalemia likely from spironolactone & KCl on admission - Hold spironolactone - 40 meq KCl given today for K 3.3 - Monitor (3) Indwelling Soto catheter present: Plan: Question of acute UTI on admission due to some blood around suprapubic cath site; however, says it often bleeds when she is moved around as it pulls the cath. (She is on anticoagulation for afib.) Draining freely at present. Last changed on 07/14/2022. - Plan to change out while inpatient. - Monitor (4) CKD (chronic kidney disease) stage 4, GFR 15-29 ml/min: Plan: Baseline Cr ~2.1. On admission, Cr up to 2.3, but not really SRINI. Likely cardiorenal. - Hold spironolactone - Continue Lasix - Monitor (5) Type 2 diabetes mellitus with kidney complication, with long-term current use of insulin: Plan: A1c was 6.6% during last admission. - Continue home Lantus at reduced dose (10 units BID instead of 35 units) to account for lower calorie intake in the hospital (hypoglycemia on 08/14) - Novolog: --Goal BSG Range: Low 100 mg/dL, High 140 mg/dL --Correction Factor: 30 mg/dL/unit --Carbohydrate ratio = 12 g/unit --BSGs ACHS if eating, q6h if npo (6) CAD (coronary artery disease): Plan: Per Dr. Hernandez's note from 04/2022: CAD s/p CABG x 2 Vessels (RANDHAWA to LAD, SVG to PDA) 07/31/13. - Continue home Eliquis, beta-jody, statin (7) Atrial fibrillation: Plan: EKG on admission shows bradycardia with a junctional rhythm. Compared to EKG on 08/02/2022 (and even back to 2020), I do not see any differences. - Continue home Eliquis - Continue home beta-jody (8) Anemia: Plan: Chronic. Likely due to anemia of chronic disease and CKD. - Monitor -consult GI due to low transferrin saturation -Appreciate input: continue PPI BID Plan VTE Prophylaxis - Eliquis Diet - heart healthy, T2DM, fluid restrict 1500ml Admission and Anticipated Discharge Date Admission Date: August 08, 2022 Subjective Increasing right leg spasms today, taking her usual requip. Just in her right leg no left. No shortness of breath or chest pain. Review of Systems Review of Systems: All systems reviewed & are unremarkable except as noted in Subjective Physical Exam Constitutional: WD/WN, vitals as above Eyes: + anicteric sclerae; normal pupil size Respiratory: normal respiratory effort; no respiratory distress Auscultation: + crackles (bibasal); no diminished lung sounds, no rales, no rhonchi and no wheezes Cardiovascular: Rate/Rhythm: + bradycardic and + irregularly irregular Heart Sounds: no murmur Extremities: normal capillary refill and + pedal edema (2+ pitting edema); no calf tenderness Gastrointestinal (Abdomen): normal bowel sounds, soft, nontender, no hepatosplenomegaly Musculoskeletal: no cyanosis or clubbing, extremities motor strength 5/5 Skin: no rashes, warm and dry Neurologic: moves all extremities and awake; not confused Psychiatric: A+Ox3, euthymic affect Results & Data Results & Data ([facility]) Vital Signs (Past 12 Hours) Vital Signs Temp Pulse Resp BP Pulse Ox O2 Del Method 08/18/22 21:28 Room Air 08/18/22 20:00 37.2 C 72 20 128/65 98 Room Air 08/18/22 15:54 36.4 C L 49 L 18 146/63 H 96 Room Air 08/18/22 12:21 36.4 C L 53 L 18 138/54 L 94 Room Air PG Care Time/CCT Total # of Minutes Spent Total Time Spent with Patient: Total time spent is greater than 50% in coordination of care (as documented) at patient's floor/unit and/or counseling patient: Coding Level of Care Code 75657 Subseq Hosp Care Lvl 2 Diagnoses (HFpEF) heart failure with preserved ejection fraction I50.30 Hyponatremia E87.1 Indwelling Soto catheter present Z96.0 CKD (chronic kidney disease) stage 4, GFR 15-29 ml/min N18.4 Type 2 diabetes mellitus with kidney complication, with long-term current use of insulin E11.29; Z79.4 CAD (coronary artery disease) I25.10 Associated angina: without angina Coronary Disease-Associated Artery/Lesion type: [place] artery [place] vs. transplanted heart: [place] heart Atrial fibrillation I48.20 Atrial fibrillation type: unspecified chronic Anemia D64.9 (1) CAD (coronary artery disease) Associated angina: without angina Coronary Disease-Associated Artery/Lesion type: [place] artery [place] vs. transplanted heart: [place] heart Qualified Code(s): I25.10 - Atherosclerotic heart disease of [place] coronary artery without angina pectoris (2) Atrial fibrillation Atrial fibrillation type: unspecified chronic Qualified Code(s): I48.20 - Chronic atrial fibrillation, unspecified
[2022-08-19 06:34] LABS: BUN Creatinine Ratio 19.9 (10-20); Calcium 8.8 mg/dl (8.5-10.1); Creatinine Clr Calc Pharmacy 27.7 ml/min; Est GFR (African American) 26.1 ml/min; Est GFR (Non-African American) 22.5 ml/min; Potassium 3.5 mmol/L (3.5-5.1)
[2022-08-19] MEDS: hydrALAZINE HCL 25 MG TAB PO SCH (08:19)
[2022-08-19] MEDS: rOPINIRole HCL 2 MG TABLET PO SCH ×2 (08:19→12:17)
[2022-08-19] MEDS: rOPINIRole HCL 1 MG TABLET PO SCH ×2 (08:19→12:16)
[2022-08-19] MEDS: allopurinoL 100 MG TAB PO SCH (08:19)
[2022-08-19] MEDS: PANTOprazole 40 MG TAB PO SCH (08:20)
[2022-08-19] MEDS: APIXABAN 5 MG TABLET PO SCH (08:20)
[2022-08-19] MEDS: FUROSEMIDE 40 MG/4 ML VIAL IV SCH (08:20)
[2022-08-19] MEDS: ROSUVASTATIN CALCIUM 20 MG TAB PO SCH (08:20)
[2022-08-19] MEDS: LANTUS PER UNIT CHARGE SQ SCH (08:27)
[2022-08-19] MEDS: INSULIN ASPART PER UNIT SC SCH ×2 (08:28→12:16)
--- NOTE | 2022-08-19 13:00 | XRay Report ---
XR chest 1V portable CLINICAL HISTORY: pulmonary edema TECHNIQUE: Single frontal radiograph of the chest was obtained. Comparison: Comparison is made to chest radiograph 08/08/2022 FINDINGS: Median sternotomy wires are unchanged. Cardiomegaly is noted. Prominence and cephalization of the vas culature is seen. A left retrocardiac opacity cannot be excluded. No evidence of pleural effusion or pneumothorax. IMPRESSION: Cardiomegaly mild pulmonary edema, decreased in size from prior exam. ACT 112: Negative or not required by law. Electronically signed by: Akhil Juárez M.D. 08/19/2022 12:59 PM
[2022-08-20] MEDS ORDERED: FUROSEMIDE 40 MG TAB PO SCH (09:00)
--- NOTE | 2022-08-20 09:24 | Discharge Summary ---
Date of Service August 19, 2022 Admission HPI Per Admitting Provider 76yo F w/ hx of CHF, DM who presents with likely CHF exacerbation. Was recently in the hospital and was discharged to [facility]. She reports increased LE edema and shortness of breath while there. She believes she was taking all her medications as per on the discharge summary. She is not sure about sodium intake there. She has felt more shortness of breath, and her SpO2 was 90% on room air, so she was started on low-dose nasal cannula O2. She reports some orthopnea symptoms. Principal Diagnosis Acute on chronic heart failure with preserved ejection fraction Discharge Exam Constitutional WD/WN, vitals as above Respiratory normal respiratory effort; no respiratory distress Auscultation: + crackles (bibasal) Cardiovascular Rate/Rhythm: regular rate and regular rhythm Extremities: + pedal edema (2+ b/l LE) Gastrointestinal (Abdomen) normal bowel sounds, soft, nontender, no hepatosplenomegaly Musculoskeletal no cyanosis or clubbing, extremities motor strength 5/5 Psychiatric A+Ox3, euthymic affect Discharge Data Allergies Allergy/AdvReac Type Severity Reaction Status Date / Time metoclopramide [From Reglan] Allergy Mild "went Verified 08/08/22 17:51 crazy" NSAIDS (Non-Steroidal Allergy Unknown UNK? Verified 08/08/22 17:51 Anti-Inflamma DENIES SOB. capsaicin AdvReac Severe SHORTNESS Verified 08/08/22 17:51 OF BREATH diclofenac AdvReac Severe SHORTNESS Verified 08/08/22 17:51 OF BREATH Consultations 08/08/22 16:59 ED Decision to Admit Stat 08/10/22 09:12 [facility] Referral Routine 08/13/22 12:06 Consult Gastroenterology Routine Ordered Studies 08/08/22 14:55 US leg [US venous doppler LE RT] Stat IMPRESSION: There is no sonographic evidence of deep venous thrombosis identified in the right lower extremity. 08/08/22 16:[address] [CT head/brain wo con] Stat IMPRESSION: There is no hemorrhage, mass effect, or evidence of acute territorial ischemia by CT criteria. Hospital Course (1) (HFpEF) heart failure with preserved ejection fraction: Radha Ramires is a 77 year old female admitted to [facility] from August 08 - 2021 due to lower extremity edema and shortness of breath. She was diagnosed with acute on chronic heart failure with preserved ejection fraction. This was treated with intravenous Lasix 40mg IV BID with negative balance 1-1.5L per day. She was diuresed until her Cr started to bump slightly however still appears to be somewhat overloaded on exam and recommend not being significantly concerned unless her Cr runs above 2.5. She was on Lasix 40mg PO twice a day and spironolactone 25mg PO once daily on prior discharge however for some reason this was not included on her medicine reconciliation here. Recommend increasing her usual Lasix dosing to 80mg PO in the morning and 40mg PO in the afternoon and continuing on her usual spironolactone. She should have repeat labs in 2-3 days at [facility] to monitor her anemia and BMP. Recommend follow up with the heart failure clinic on discharge from [facility]. She was seen by gastroenterology due to iron deficiency anemia and recommended increasing her pantoprazole to 40mg PO BID and follow up with gastroenterology as an outpatient for consideration of EGD. Of note her hemoglobin A1C 6.6. No insulin adjustments have been made however she was only requiring 10 units of Lantus twice a day while in the hospital. Martinez cook she may be eating similar food at [facility] recommend starting at Lantus 10 units twice a day and titrating upwards if she is having hyperglycemia. (2) Hyponatremia: (3) Indwelling Soto catheter present: (4) CKD (chronic kidney disease) stage 4, GFR 15-29 ml/min: (5) Type 2 diabetes mellitus with kidney complication, with long-term current use of insulin: (6) CAD (coronary artery disease): (7) Atrial fibrillation: (8) Anemia: Total Time Total Time Spent Total Time Spent (In Minutes): 40 Discharge Plan Discharge Items Patient Disposition: Transfer Inpatient Rehab Fac Reason For Visit: ACUTE CHF Discharge Diagnosis: Acute on chronic heart failure with preserved ejection fraction Condition on Discharge: Fair Activity: Resume your previous activity Non-emergency contact: [employer] Gr[employer] Machine Call non-emergency contact if: you have any medication questions and your symptoms worsen Follow-up/Referrals: Rory Goodman, DO [Physician] - (iron def. anemia 4-6 weeks f/u) Jaquelin Crowley MD [Primary Care Provider] - Melania French PA-C [Physician Museum Exhibit Designer] - 08/21/22 10:30 am (Congestive Heart Failure Program Appointment Information Early follow up is essential to managing your heart failure. An appointment has been scheduled for you with the [facility] Heart Failure Program within 7 days of discharge. Anticipate this visit to be 30-60 minutes long. Please expect a cutting and printing machine operator phone call from one of our nurses approximately 48 hours from discharge. They will also be placing an order for lab work to be completed 1-2 days prior to your heart failure follow up appointment. Please be sure to have this done so we can go over the results when you come in. Office Location The cardiology office building is located in front of the hospital at [address] Bring the following with you to your follow-up doctor appointments: Please bring your daily weight log any discharge paperwork all of your medication bottles with you to this visit. ) Diet: Carb Consistent or DM2, Heart Healthy and Low Sodium (2gm) Fluids: 1500ml (6 cups) Addtl Attending Provider Instructions: You were admitted to [facility] from August 08 - 2021 due to lower extremity edema and shortness of breath. You were diagnosed with acute on chronic heart failure with preserved ejection fraction. This was treated with intravenous Lasix 40mg IV BID with negative balance 1-1.5L per day. You were on Lasix 40mg PO twice a day and spironolactone 25mg PO once daily on prior discharge however for some reason this was not included on you medicine reconciliation here. Recommend increasing your usual Lasix dosing to 80mg PO in the morning and 40mg PO in the afternoon and continuing on the usual spironolactone. Please repeat your blood tests at [facility] for your kidney function, potassium and anemia. Please increase you pantoprazole to 40mg PO BID as recommended by gastroenterology and follow up with gastroenterology as an outpatient for iron deficiency anemia. Of note your hemoglobin A 1C 6.6. No insulin adjustments have been made however you are requiring only 10 units of Lantus twice a day while in the hospital. Given you may be eating similar food at [facility] recommend starting at Lantus 10 units twice a day and titrating upwards if you are having hyperglycemia. Please follow up with the heart failure clinic on discharge from [facility]. Pending Studies at Discharge: No Stand-Alone Forms: [facility] Skilled Items Patient informed of condition?: Yes DNR: No Discharge Level of Care: Acute rehab Communicable Disease: No Discharge Prognosis: Improving Lines: None Urinary Catheter: Yes (chronic) Medications and DC Order Prescriptions: New furosemide [Lasix] 40 mg tablet See Rx Instructions .ROUTE .COMPLEX Qty: 90 0RF Rx Instructions: 80mg PO QAM, 40mg PO in afternoon spironolactone 25 mg tablet 25 mg PO QAM Qty: 30 0RF Continued acetaminophen [Tylenol] 325 mg Tablet 650 mg PO Q4 PRN (Reason: PAIN 1-3 SCALE) insulin glargine 100 unit/mL Solution 35 unit SUBCUT BID polyethylene glycol 3350 [Miralax] 17 gram Powder In Packet 17 g PO DAILY PRN (Reason: Constipation) Rx Instructions: GIVE @LUNCH PRN sennosides-docusate sodium [Senokot-S] 8.6-50 mg Tablet 1 tab-cap PO .QLUNCH PRN (Reason: Constipation) amlodipine 5 mg Tablet 5 mg PO DAILY allopurinol 100 mg tablet 100 mg PO DAILY magnesium hydroxide [Milk of Magnesia] 400 mg/5 mL Suspension 0 ml PO DAILY PRN (Reason: Constipation) Humulin R Regular U-100 Insuln 100 unit/mL Solution 1 sliding scale dose SUBCUT USEASDIRECTD Rx Instructions: ACHS 70-130=0 UNITS, 131-180=2UNITS, 181-240=4UNITS, 241-300= 6 UNITS, 301- 350=8 UNITS, 351-400=10UNITS, >400=12 UNITS. nitroglycerin [Nitrostat] 0.4 mg Tablet, Sublingual 0.4 mg sublingual DIRECTED PRN (Reason: Chest Pain) docusate sodium 100 mg Capsule 100 mg PO BID metoprolol succinate 25 mg tablet extended release 24 hr 25 mg PO DAILY albuterol sulfate [Ventolin HFA] 90 mcg/actuation HFA aerosol inhaler 1 puff INHALATION Q6 PRN (Reason: Shortness Of Breath Or Wheezing) ropinirole 5 mg tablet 5 mg PO QID cholecalciferol (vitamin D3) [Vitamin D3] 125 mcg (5,000 unit) Tablet 125 mcg PO DAILY Eliquis 5 mg tablet 5 mg PO Q12 Calcium Carb-Mag Cl 112mg-64mg 1 tab PO TID hydralazine 25 mg tablet 25 mg PO Q8 rosuvastatin 40 mg tablet 40 mg PO HS Changed amitriptyline 50 mg tablet 50 mg PO HS Qty: 30 0RF pantoprazole 40 mg tablet,delayed release (DR/EC) 40 mg PO BID Qty: 60 0RF Discharge Orders: Discharge Order (Routine); Ordered 08/19/22 Ordered By: Galdino Trujillo/Other Patient Handouts: Heart Failure Dc Admission Data Admit Date/Time: 08/08/22 16:49 Attending Provider: Galdino Palmer Admit Provider: Tai Kam Primary Care Provider: Jaquelin Crowley V. Other Providers: Tai Kam ; [facility] ; Melania French ; Rory Goodman Other Interventions: Discharge Summary Assessment (RN) Last Done: 08/19/22 13:44 Coding Level of Care Code D/C DAY MANAGEMENT >30 MINS Diagnoses (HFpEF) heart failure with preserved ejection fraction I50.30 Hyponatremia E87.1 Indwelling Soto catheter present Z96.0 CKD (chronic kidney disease) stage 4, GFR 15-29 ml/min N18.4 Type 2 diabetes mellitus with kidney complication, with long-term current use of insulin E11.29; Z79.4 CAD (coronary artery disease) I25.10 Coronary Disease-Associated Artery/Lesion type: [place] artery [place] vs. transplanted heart: [place] heart Associated angina: without angina Atrial fibrillation I48.20 Atrial fibrillation type: unspecified chronic Anemia D64.9
== END 2022-08-19 14:59 | DRG 291 ==
LOC: ED 12:46 → SUATTDRO 16:49 → 2W 16:49 → 2N 08-14 02:31

== ENCOUNTER 2022-12-13 11:22 | Inpatient (IN) ==
--- NOTE | 2022-12-13 11:36 | Emergency Department Note ---
Impression & Plan Acute exacerbation of CHF (congestive heart failure), Right leg swelling, Anemia ED Provider Note NAME: MERCED SESAY AGE: 77 SEX: F : 1945 ARRIVES VIA: Walk-In INFORMANT: [Patient][, ] ED PROVIDER(S): [Aaron Pierre MD] CHIEF COMPLAINT: Shortness of breath, right lower extremity swelling MEDICAL DECISION MAKING: Patient presented due to concern for shortness of breath and right lower extremity swelling. Blood work was obtained along with an EKG troponin and chest x-ray BNP DVT ultrasound and bilateral shoulder x-rays patient's blood work shows a normal white count with chronic and stable anemia hemoglobin is 7.5. Platelet count is normal. Kidney function with a creat of 1.6 which is slightly improved compared to prior. The patient does have mild elevation troponin which believe is demand related. The patient does not have significant chest pains. No obvious changes on EKG. BNP is elevated to 87. Patient was ordered 60 of IV Lasix. COVID-negative. The patient's chest x-ray does show that she has associated congestive change. DVT ultrasound is negative. The patient did have plain films completed of the bilateral shoulders as the patient has had a recurrence of falls and was complaining of some pain. Patient denies any head strike or LOC so CT of the head was not obtained at this time. Prior /Outside records reviewed: I did review the patient's most recent outpatient heart failure visit with Marquita French PA-C. The patient does have a known history of CHF with right ventricular systolic dysfunction. Patient is known history of A. fib and is on anticoagulation therapy. The patient was recommended a low-sodium diet less than 2 g daily. The patient is to take Lasix 120 in the morning and 80 in the evening. The patient is also on spironolactone. Patient's most recent echo from her notes was from November 2021 with borderline moderate LV dilation mild LVH mildly reduced biventricular systolic function with an EF of 45 to 50% with moderate left and mild right atrial dilation mild to moderate AAS mild to moderate MR mild TR normal RVSP and probable elevated CVP Differential diagnosis: Reactive airway disease, pneumonia, pneumothorax, COPD, CHF, infections, cardiac ischemia, pulmonary embolism, musculoskeletal, gastrointestinal, as well as other pathologies. Diagnostics, as interpreted by me: ECG: Regular rhythm, rate of 84, normal QRS, left axis deviation, T wave version in the high lateral leads, PVCs noted. Cardiac monitoring: An order was placed for continuous cardiac monitoring. The monitor shows a rate of 65 with regular rhythm. [Patient was placed on pulse oximetry] Medical decision rules: [none] Imaging studies: See below HPI: Patient presents due to concern for shortness of breath. The patient has also noted some associated weight gain and right lower extremity swelling that is greater than her left. The patient does take a blood thinner for known history of A. fib. Patient states that she has been having good urine output an d is compliant with her medications. The patient denies any nausea vomiting or diarrhea. Patient denies any falls or trauma. Patient denies any cough. Patient did take her diuretic this morning. The patient does follow with Marquita Chuck w/ CHF service. The patient does primarily use her wheelchair but is ambulatory and the patient has had several falls striking her shoulders. Patient denies any LOC or head strike. The patient denies any headache or neck pain. PAST MEDICAL HISTORY: [See Below] PAST SURGICAL HISTORY: [See Below] SOCIAL HISTORY: [See Below] HOME MEDICATIONS: [See Below] ALLERGIES: [See Below] VITALS: [See Below] PHYSICAL EXAMINATION: GENERAL: NAD, [wearing a mask,] non-toxic. EYE EXAM: Normal conjunctiva. PERRL, no anisocoria and EOM's grossly intact w/o pain. NECK: Supple, no nuchal rigidity, no adenopathy, non-tender. No signs of meningismus. FROM of the neck with good chin to chest and neck extension. No stridor. LUNGS: Clear to auscultation. Normal chest wall mechanics. HEART: NSR, no MRG. ABDOMEN: Abdomen soft, non-tender, normo-active bowel sounds, no masses, no rebound or guarding. BACK: No CVA TTP. SKIN: No rashes and no bruising. UPPER EXTREMITIES: Upper extremities are grossly normal. LOWER EXTREMITIES: Right greater than left lower extremity edema without calf pain, no crepitus neurovascular tact distally NEURO EXAM: A&O x3, cranial nerves II-XII grossly intact, normal speech, moves all 4 extremities. Past Med/Surg History Medical History Aortic stenosis MILD-MOD per 08/2019 echo, but NO SIGNIFICANT STENOSIS noted on 10/12/19 echo. Atrial fibrillation On Eliquis - dx 4-5 yr ago - no hx cardioversion CAD (coronary artery disease) s/p CABG x 2 in 2012. CAD has remained quiescent since then. Follows with Dr. Hernandez, who cleared the patient for lumbar surgery 07/2019. Chronic kidney disease, stage 3 CKD (chronic kidney disease) stage 4, GFR 15-29 ml/min Clostridium difficile infection DX [facility] 12/2018 @ [facility]. Stool NEGATIVE 05/25/19. Diabetes mellitus, type 2 IDDM Diabetic foot ulcer associated with type 2 diabetes mellitus Following with wound clinic [facility]. Dysphagia pt denies Episode of gagging nausea and episodes of gagging/started 2 weeks ago - pt has not notified dr Fatty liver Gout hx Graves disease Hypertension Indwelling Soto catheter present Lumbar spinal stenosis Severe at L4-5. 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 Lung cancer S/P RM lobectomy 2015, follows with Dr. Perkins. 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 Venous stasis ulcer of right lower leg with edema of right lower leg open wound to right leg - draining brownish color / pt reports she has a wound care appointment to al right leg & foot - pt doesn't know when appointment is Surgical History Fusion of spine lumbar (07/2019) at [facility] --- uneventful surgery/anesthesia and hospitalization, but patient developed subsequent LE paraplegia. 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 History of appendectomy History of bilateral knee replacement History of bronchoscopy History of cardiac cath 2012 - [facility] - [place] - NO STENTS/ANGIOPLASTY -- > CABG History of cholecystectomy History of colonoscopy 11/2018 [facility] History of esophagogastroduodenoscopy (EGD) 11/2018 [facility] History of hysterectomy with oophorectomy KEARA with BSO History of lobectomy of lung RML History of ovarian cystectomy History of surgery Right VATS PROCEDURE History of tubal ligation Hx of CABG 2013 - - [place] - [place] - 2 VESSELS Family History Daughter Family history of diabetes mellitus Mother Heart disease Hypertension Myocardial infarction Father Hypertension Other Diabetes Denies family history of Ovarian cancer Prostate cancer Crohn's disease Breast cancer Colorectal cancer Ulcerative colitis Social History Smoking Status: Former smoker Tobacco Type: Cigarettes Cigarettes Per Day: 10; Second Hand Exposure: No; Do You Dip or Chew Tobacco: No; Tobacco Cessation Education Requested by Patient: No Hx Alcohol Use: No Hx Substance Use: No Preferred Language: [place] Irish Communication Ability: Effective Visual Impairment: No Limitations Hearing Ability: Normal Bridal Consultant Required: No Beliefs That Will Affect Care: None marital status: Current Living Situation: Spouse and Family Current Living Situation Comment: Live with . current occupational status: retired How many Children do You have: 5 Other Information That Helps Us Care for You: No Feels Safe at Home: Yes Safety Concerns: Feels Safe At This Time Childhood Exposure to Second-Hand Smoke: No Dental Care, Regularly: No Physical Activity Frequency: Does not Exercise Seatbelt Use: always Sunscreen Use: No Assistive Devices: Denture - Upper, Denture - Lower, Glasses and Scooter/Elect deniz Scooter Allergies Allergies Allergy/AdvReac Type Severity Reaction Status Date / Time capsaicin Allergy Unknown SHORTNESS Verified 12/06/22 13:04 OF BREATH diclofenac Allergy Unknown SHORTNESS Verified 12/06/22 13:04 OF BREATH metoclopramide [From Reglan] Allergy Unknown "went Verified 12/06/22 13:04 crazy" NSAIDS (Non-Steroidal Allergy Unknown Unknown/pt Verified 12/06/22 13:04 Anti-Inflamma not sure about this Home Meds Home Medications Medication Instructions Recorded Confirmed acetaminophen 325 mg tablet 650 mg PO UD PRN Pain 08/08/22 12/13/22 (Tylenol) albuterol sulfate 90 mcg/actuation 1 puff inhalation Q6 PRN Shortness 08/08/22 12/13/22 aerosol inhaler (Ventolin HFA) Of Breath Or Wheezing apixaban 5 mg tablet (Eliquis) 5 mg PO BID 08/08/22 12/13/22 ropinirole 5 mg tablet 5 mg PO QID 09/11/22 12/13/22 cholecalciferol (vitamin D3) 125 2,000 mcg PO QAM 09/18/22 12/13/22 mcg (5,000 unit) tablet (Vitamin D3) ferrous sulfate 325 mg (65 mg 325 mg PO QAM 09/18/22 12/13/22 iron) tablet lidocaine 5 % topical patch 1 patch topical UD PRN Pain 09/18/22 12/13/22 (Lidoderm) magnesium chloride 64 mg 64 mg PO TID 09/18/22 12/13/22 tablet,extended release insulin aspart U-100 100 unit/mL 5 unit subcut DAILY 12/06/22 12/13/22 subcutaneous solution insulin detemir U-100 100 unit/mL See Rx Instructions subcut BID 12/06/22 12/13/22 subcutaneous solution (Levemir U-100 Insulin) Previous Rx's Medication Instructions Recorded pantoprazole 40 mg tablet,delayed 40 mg PO DAILY #90 tabs 09/28/22 release spironolactone 25 mg tablet 25 mg PO BID #30 tabs 10/21/22 furosemide 40 mg tablet (Lasix) 120 mg PO BID #180 tabs 11/01/22 rosuvastatin 40 mg tablet 40 mg PO DAILY #90 tabs 11/06/22 allopurinol 100 mg tablet 100 mg PO QAM #90 tabs 11/07/22 amitriptyline 50 mg tablet 50 mg PO HS #90 tabs 11/07/22 metoprolol succinate 25 mg 50 mg PO QAM #180 tabs 11/07/22 tablet,extended release 24 hr hydralazine 25 mg tablet 50 mg PO TID #90 tabs 11/29/22 Results & Data (ED) Vital Signs Vital Signs - 24 hr 12/13/22 11:28 12/13/22 13:22 12/13/22 14:21 Temperature 36.5 C Temperature Source Oral Pulse Rate 83 Pulse Rate [Apical] 80 83 Respiratory Rate 20 18 14 Respiratory Depth Normal Blood Pressure 139/65 Blood Pressure [Left Arm] 120/58 L 120/58 L Blood Pressure Mean 89 Blood Pressure Mean [Left Arm] 78 78 Blood Pressure Position Sitting Pulse Oximetry 90 94 Oxygen Delivery Method Room Air Room Air Sepsis Recent Fever Within 48 Hours No Sepsis New/Unexplained Change in Mental Status No Sepsis Action Taken by Nursing No Action Required Home Medications Current Medication List: was personally reviewed by me Laboratory Data Attestation: I reviewed the patient's lab results. 12/13/22 12:30 12/13/22 12:30 Lab Results 12/13/22 12/13/22 12/13/22 Range/Units 12:30 12:30 12:30 WBC 6.19 (4.8-10.8) K/ul RBC 2.87 L (3.93-5.22) M/uL Hgb 7.5 L (12.0-16.0) g/dl Hct 25.8 L (34.1-44.9) % MCV 89.9 (80.0-100.0) fL MCH 26.1 (25.0-34.0) pg MCHC 29.1 L (32.0-36.0) g/dL RDW Std Deviation 64.3 H (36.4-46.3) fL RDW Coeff of Lelo 19.8 H (11.5-14.5) % Plt Count 211 (130-400) K/uL MPV 8.6 L (9.4-12.3) fL Immature Gran % (Auto) 0.6 % Neut % (Auto) 82.3 % Lymph % (Auto) 7.1 % Lamar % (Auto) 7.6 % Eos % (Auto) 1.6 % Baso % (Auto) 0.8 % Neut # (Auto) 5.09 (1.4-6.5) K/uL Lymph # (Auto) 0.44 L (1.2-3.4) K/uL Lamar # (Auto) 0.47 (0.24-0.82) K/uL Eos # (Auto) 0.10 (0-0.50) K/uL Baso # (Auto) 0.05 (0-0.2) K/uL Immature Gran # (Auto) 0.04 H (0.00-0.02) K/uL Polychromasia 1+ Anisocytosis Present Tear Drop Cells 1+ Ovalocytes 1+ PT 16.3 H (9.0-12.0) Seconds INR 1.6 H (0.9-1.1) APTT 34.3 H (21.0-31.0) Seconds PTT Ratio 1.2 Sodium (136-145) mmol/L Potassium (3.5-5.1) mmol/L Chloride (98-107) mmol/L Carbon Dioxide (21-32) mmol/L Anion Gap (3-11) BUN (6-23) mg/dl Creatinine (0.6-1.2) mg/dl Est Cr Clr Drug Dosing Est GFR ( Amer) ml/min Est GFR (Non-Af Amer) ml/min BUN/Creatinine Ratio (10-20) Glucose (70-99(Fasting)) mg/dl Calcium (8.5-10.1) mg/dl Magnesium (1.7-2.4) mg/dl Total Bilirubin (0.2-1.0) mg/dl AST (13-39) U/L ALT (7-52) U/L Alkaline Phosphatase (34-104) U/L Troponin I High Sens (0-14) pg/ml B-Natriuretic Peptide 287 H (0-100) pg/ml Total Protein (6.0-8.3) gm/dl Albumin (3.4-5.0) gm/dl Globulin (2.5-4.0) gm/dl Albumin/Globulin Ratio (0.9-2) SARS-CoV-2, RNA, NAAT (NEGATIVE) 12/13/22 12/13/22 Range/Units 12:30 13:50 WBC (4.8-10.8) K/ul RBC (3.93-5.22) M/uL Hgb (12.0-16.0) g/dl Hct (34.1-44.9) % MCV (80.0-100.0) fL MCH (25.0-34.0) pg MCHC (32.0-36.0) g/dL RDW Std Deviation (36.4-46.3) fL RDW Coeff of Lelo (11.5-14.5) % Plt Count (130-400) K/uL MPV (9.4-12.3) fL Immature Gran % (Auto) % Neut % (Auto) % Lymph % (Auto) % Lamar % (Auto) % Eos % (Auto) % Baso % (Auto) % Neut # (Auto) (1.4-6.5) K/uL Lymph # (Auto) (1.2-3.4) K/uL Lamar # (Auto) (0.24-0.82) K/uL Eos # (Auto) (0-0.50) K/uL Baso # (Auto) (0-0.2) K/uL Immature Gran # (Auto) (0.00-0.02) K/uL Polychromasia Anisocytosis Tear Drop Cells Ovalocytes PT (9.0-12.0) Seconds INR (0.9-1.1) APTT (21.0-31.0) Seconds PTT Ratio Sodium 135 L (136-145) mmol/L Potassium 3.6 (3.5-5.1) mmol/L Chloride 99 (98-107) mmol/L Carbon Dioxide 30 (21-32) mmol/L Anion Gap 6 (3-11) BUN 53 H (6-23) mg/dl Creatinine 1.67 H (0.6-1.2) mg/dl Est Cr Clr Drug Dosing Not Reportable Est GFR ( Amer) 33.6 ml/min Est GFR (Non-Af Amer) 29.0 ml/min BUN/Creatinine Ratio 31.7 H (10-20) Glucose 126 H (70-99(Fasting)) mg/dl Calcium 9.2 (8.5-10.1) mg/dl Magnesium 2.1 (1.7-2.4) mg/dl Total Bilirubin 0.8 (0.2-1.0) mg/dl AST 23 (13-39) U/L ALT 11 (7-52) U/L Alkaline Phosphatase 76 (34-104) U/L Troponin I High Sens 28.0 H (0-14) pg/ml B-Natriuretic Peptide (0-100) pg/ml Total Protein 6.4 (6.0-8.3) gm/dl Albumin 3.7 (3.4-5.0) gm/dl Globulin 2.7 (2.5-4.0) gm/dl Albumin/Globulin Ratio 1.4 (0.9-2) SARS-CoV-2, RNA, NAAT NEGATIVE (NEGATIVE) Administered Medications Insulin Aspart (Insulin Aspart Per Unit) 0 units SC ACHS CEM Stop: 01/12/23 17:14 Last Admin: 12/13/22 18:09 Dose: 2 units Documented By: BELLA Co-signed By: [id number] Discontinued Medications Acetaminophen (Acetaminophen 500 Mg Tab) 1,000 mg PO NOW STA Stop: 12/13/22 12:07 Last Admin: 12/13/22 13:06 Dose: 1,000 mg Documented By: OL Furosemide (Furosemide 40 Mg/4 Ml Vial) 60 mg IV ONE ONE Stop: 12/13/22 14:04 Last Admin: 12/13/22 14:23 Dose: 60 mg Documented By: ARS Imaging Data Radiologist's Impression: Venous Doppler Study 12/13/22 12:03 US venous doppler LE RT CLINICAL HISTORY: leg swelling TECHNIQUE: Right lower extremity real-time compression venous ultrasound with Color Doppler imaging. Utilizing real-time ultrasonic imaging multiple real time high-resolution ultrasonic images with compression and noncompression maneuvers of the deep venous system in addition to color doppler imaging were performed from the common femoral vein through the proximal calf veins. COMPARISON: None available at the time of this dictation. FINDINGS: Currently there is normal compressibility of the deep venous system from the common femoral vein through the proximal calf veins. No superficial venous thrombosis is identified. Impression: No evidence of deep venous thrombus. ACT 112: Negative or not required by law. Electronically signed by: Akhil Juárez M.D. 12/13/2022 1:22 PM Chest X-Ray 12/13/22 12:04 XR chest 1V portable CLINICAL HISTORY: sob TECHNIQUE: Single frontal radiograph of the chest was obtained. Comparison: Comparison is made to chest radiograph 08/19/2022 FINDINGS: Median sternotomy wires are unchanged. Cardiomegaly is noted. The aortic arch is calcified. Prominence and cephalization of the vasculature is seen. No evidence of pleural effusion or pneumothorax. IMPRESSION: Cardiomegaly and mild pulmonary edema. No acute fractures are seen. ACT 112: Negative or not required by law. Electronically signed by: Akhil Juárez M.D. 12/13/2022 1:49 PM Shoulder X-Ray 12/13/22 12:06 XR shoulder LT min 2V routine, XR shoulder RT min 2V routine CLINICAL HISTORY: fall TECHNIQUE: 3 views of the bilateral shoulders were obtained. Comparison: Comparison is made to CT chest 11/30/2022 FINDINGS: There is no evidence of an acute fracture. Degenerative changes are seen in the glenohumeral joint. The overlying soft tissues are unremarkable. The visualized portions of the lungs are clear. Median sternotomy wires are seen. IMPRESSION: Degenerative changes in the bilateral shoulders without evidence of acute fracture. ACT 112: Negative or not required by law. Electronically signed by: Akhil Juárez M.D. 12/13/2022 1:48 PM Shoulder X-Ray 12/13/22 12:06 XR shoulder LT min 2V routine, XR shoulder RT min 2V routine CLINICAL HISTORY: fall TECHNIQUE: 3 views of the bilateral shoulders were obtained. Comparison: Comparison is made to CT chest 11/30/2022 FINDINGS: There is no evidence of an acute fracture. Degenerative changes are seen in the glenohumeral joint. The overlying soft tissues are unremarkable. The visualized portions of the lungs are clear. Median sternotomy wires are seen. IMPRESSION: Degenerative changes in the bilateral shoulders without evidence of acute fracture. ACT 112: Negative or not required by law. Electronically signed by: Akhil Juárez M.D. 12/13/2022 1:48 PM Discharge Plan Visit Data Chief Complaint: Leg Injury/Pain Stated Complaint: FLUID BUILD UP IN LEG ED Provider: Aaron Pierre Discharge Problem: Acute exacerbation of CHF (congestive heart failure), Right leg swelling, Anemia Patient Disposition: Admitted As Inpatient
[2022-12-13] MEDS ORDERED: ACETAMINOPHEN 500 MG TAB PO STA (12:06)
[2022-12-13 13:00] LABS: Basophils # (auto) 0.05 K/uL (0-0.2); Basophils % (auto) 0.8 %; Eosinophils % (auto) 1.6 %; Hematocrit (blood only) 25.8 % (34.1-44.9); Hemoglobin 7.5 g/dl (12.0-16.0); Immature Granulocytes # (auto) 0.04 K/uL (0.00-0.02); Immature Granulocytes % (auto) 0.6 %; Lymphocytes # (auto) 0.44 K/uL (1.2-3.4); Lymphocytes % (auto) 7.1 %; Mean Corpuscular Hemoglobin 26.1 pg (25.0-34.0); Mean Corpuscular Hgb Conc 29.1 g/dL (32.0-36.0); Mean Corpuscular Volume 89.9 fL (80.0-100.0); Mean Platelet Volume 8.6 fL (9.4-12.3); Monocytes # (auto) 0.47 K/uL (0.24-0.82); Monocytes % (auto) 7.6 %; Neutrophils # (auto) 5.09 K/uL (1.4-6.5); Neutrophils % (auto) 82.3 %; Platelet Count 211 K/uL (130-400); RDW Coefficient of Variation 19.8 % (11.5-14.5); RDW Standard Deviation 64.3 fL (36.4-46.3); Red Blood Count 2.87 M/uL (3.93-5.22); White Blood Count 6.19 K/ul (4.8-10.8)
[2022-12-13 13:08] LABS: INR 1.6 (0.9-1.1); Partial Thromboplastin Ratio 1.2; Partial Thromboplastin Time 34.3 Seconds (21.0-31.0); Prothrombin Time 16.3 Seconds (9.0-12.0)
[2022-12-13 13:14] LABS: Alanine Aminotransferase 11 U/L (7-52); Albumin Globulin Ratio 1.4 (0.9-2); Albumin Level 3.7 gm/dl (3.4-5.0); Alkaline Phosphatase 76 U/L (34-104); Anion Gap 6 (3-11); Aspartate Aminotransferase 23 U/L (13-39); BUN Creatinine Ratio 31.7 (10-20); Bilirubin,Total 0.8 mg/dl (0.2-1.0); Blood Urea Nitrogen 53 mg/dl (6-23); Calcium 9.2 mg/dl (8.5-10.1); Carbon Dioxide 30 mmol/L (21-32); Chloride 99 mmol/L (98-107); Est GFR (African American) 33.6 ml/min; Globulin 2.7 gm/dl (2.5-4.0); Glucose 126 mg/dl (70-99(Fasting)); Magnesium 2.1 mg/dl (1.7-2.4); Potassium 3.6 mmol/L (3.5-5.1); Sodium 135 mmol/L (136-145); Total Protein 6.4 gm/dl (6.0-8.3)
--- NOTE | 2022-12-13 13:23 | Ultrasound Report ---
US venous doppler LE RT CLINICAL HISTORY: leg swelling TECHNIQUE: Right lower extremity real-time compression venous ultrasound with Color Doppler imaging. Utilizing real-time ultrasonic imaging multiple real time high-resolution ultrasonic images with comp ression and noncompression maneuvers of the deep venous system in addition to color doppler imaging w ere performed from the common femoral vein through the proximal calf veins. COMPARISON: None available at the time of this dictation. FINDINGS: Currently there is normal compressibility of the deep venous system from the common femoral vein thro ugh the proximal calf veins. No superficial venous thrombosis is identified. Impression: No evidence of deep venous thrombus. ACT 112: Negative or not required by law. Electronically signed by: Akhil Juárez M.D. 12/13/2022 1:22 PM
[2022-12-13 13:31] LABS: Anisocytosis Present; Ovalocytes 1+; Polychromasia 1+; Tear Drop Cells 1+
--- NOTE | 2022-12-13 13:37 | Electrocardiogram Report ---
Test Reason : Blood Pressure : / mmHG Vent. Rate : 084 BPM Atrial Rate : 084 BPM P-R Int : 000 ms QRS Dur : 130 ms QT Int : 418 ms P-R-T Axes : 000 -50 118 degrees QTc Int : 493 ms Accelerated Junctional rhythm with occasional Premature ventricular complexes Left axis deviation Non-specific intra-ventricular conduction block Chronic Nonspecific T wave abnormality Lateral leads Abnormal ECG When compared with ECG of 09-AUG-2022 15:58, Vent. rate has increased BY 37 BPM Confirmed by Miles Collazo ([id number]) on 12/13/2022 1:37:16 PM Referred By: Confirmed By:Miles Collazo
--- NOTE | 2022-12-13 13:49 | XRay Report ---
XR shoulder LT min 2V routine, XR shoulder RT min 2V routine CLINICAL HISTORY: fall TECHNIQUE: 3 views of the bilateral shoulders were obtained. Comparison: Comparison is made to CT chest 11/30/2022 FINDINGS: There is no evidence of an acute fracture. Degenerative changes are seen in the glenohumeral joint. T he overlying soft tissues are unremarkable. The visualized portions of the lungs are clear. Median st ernotomy wires are seen. IMPRESSION: Degenerative changes in the bilateral shoulders without evidence of acute fracture. ACT 112: Negative or not required by law. Electronically signed by: Akhil Juárez M.D. 12/13/2022 1:48 PM
--- NOTE | 2022-12-13 13:50 | XRay Report ---
XR chest 1V portable CLINICAL HISTORY: sob TECHNIQUE: Single frontal radiograph of the chest was obtained. Comparison: Comparison is made to chest radiograph 08/19/2022 FINDINGS: Median sternotomy wires are unchanged. Cardiomegaly is noted. The aortic arch is calcified. Prominenc e and cephalization of the vasculature is seen. No evidence of pleural effusion or pneumothorax. IMPRESSION: Cardiomegaly and mild pulmonary edema. No acute fractures are seen. ACT 112: Negative or not required by law. Electronically signed by: Akhil Juárez M.D. 12/13/2022 1:49 PM
[2022-12-13] MEDS ORDERED: FUROSEMIDE 40 MG/4 ML VIAL IV ONE (14:03)
--- NOTE | 2022-12-13 14:27 | History & Physical Report ---
Date of Service December 13, 2022 Assessment & Plan (1) Fall: Plan: -Admit to med/tele -Patient is currently afebrile, hemodynamically stable, and stable on RA -Patient has been experiencing mechanical falls due to her chronic lower extremity weakness -No acute trauma on imaging today -Stressed the importance of waiting for others to assist her as she is on eliquis and high risk for continued bleeds -PT/OT consults placed, likely needs even more home health then she previously had -Fall precautions ordered (2) Swelling of both lower extremities: Plan: -Patient noted to have increased swelling of the lower extremities R>L and the abdomen recently despite her lasix dose being increased recently -She has a history of significant right-sided CHF and is non-compliant with her CPAP -Venous Doppler of the RLE negative for DVT, patient is also on eliquis and has not recently missed a dose -Did have her am 120 mg lasix dose and was given 60 mg IV lasix in the ED, will continue with 80 mg BID lasix for now -Continue spironolactone -Will consult Melania Servin of CHF clinic for assistance as the patient follows with them -Monitor daily weights, intake/output, and renal function -Monitor on tele and pulse oximetry (3) Elevated troponin: Plan: -Initial trop elevated at 28, patient is asymptomatic and without acute ECG changes -Likely due to demand -Will repeat another trop now ans continue to monitor on tele (4) Anemia: Plan: -Patient has a long history of anemia due to CKD and other chronic illness -Hgb today is 7.5, down from 8.4 as of 11/30/22 -Could be a combination of her chronic anemia and some blood loss anemia from her recent fall with multiple bruises noted -She does follow with [facility] hematology and has been getting weekly doses of Retacrit. Per the last clinic visit on 12/12/21 her dose was increased to 40,000 weekly with last dose of 12/07/22. Could touch base with them tomorrow to see if she could get her next dose while in the hospital -Will repeat iron studies in the am (5) Chronic kidney disease, stage 3: Plan: -Currently stable with stable electrolytes -Continue diuretics and vitamin D (6) Sleep apnea: Plan: -Continue to stress the importance of compliance -HS CPAP ordered, patient states she will use it during the admission (7) Hyperlipidemia: Plan: -Conitnue ststain (8) Type 2 diabetes mellitus with kidney complication, with long-term current use of insulin: Plan: Monitor BSG ACHS, goal range is 110-140 -Will start with 5 units of lantus BID, correction factor of 40 and carb ratio of 13 -DM II diet with 2g sodium restriction (9) Atrial fibrillation: Plan: -Currently rate controlled -Continue metoprolol -Continue Eliquis for now -Will need to have further discussions with the patient and her family regarding continuing anticoagulation with her risk of falls and further bleeding (10) CAD (coronary artery disease): Plan: -Continue statin (11) Hypertension: Plan: -Stable -Continue metoprolol, diuretics, and hydralazine (12) Chronic right-sided congestive heart failure: Plan: -Hold PO lasix -Continue with 80 mg IV lasix BID for now -CHF consult placed -Monitor on tele/pulse oximetry -Monitor daily renal function and electrolytes Plan The patient was discussed with Dr. Palmer at the time of the admission History of Present Illness Chief Complaint: RLE swelling, falls, SOB Primary Care Provider: Jaquelin Crowley MD Radha is a 77 year old female with a PMH significant for DM II, HTN, h yperlipidemia, PAD, stage 3 CKD, Anemia, previous lung cancer, TIA, sleep apnea, afib on eliquis, CAD, paraplegia with chronic suprapubic catheter, HFpEF (LVEF of 55-60%, severe pulmonary HTN, and intermediate diastolic dysfunction as of 07/31/22) who presented to the [facility] ED on 12/13/22 with a chief complaint of increased swelling in the right arm/abdomen and multiple falls within the past week,. In the ED the patient was found to be afebrile, hemodynamically stable, and stable on RA. Labs were remarkable for a WBC WNL, Hgb of 7.5 (down from 8.4 as of 11/30/22), stable platelets at 211, INR of 1.6, stable cr at 1.67 (Baseline is 1.6 per the last Nephrology clinic note on 11/30/22), stable electrolytes, glucose of 126, initial high sensitivity trop of 28 with a BNP of 287, and covid negative. Doppler of the RLE was read as "No evidence of deep venous thrombus.". Chest xray was read as "Cardiomegaly and mild pulmonary edema. No acute fractures are seen.". Xray of the BL shoulders was read as "Degenerative changes in the bilateral shoulders without evidence of acute fracture.". prior to admission the patient was given 1gm PO tylenol and 60 mg IV lasix. At the time of the exam the patient was resting comfortably in bed in no acute distress with her and Daughter and primary caregiver (Kalie) at bedside, history was obtained from all. They state that she came to the ED today due to her increased swelling in her abdomen and RLE. They called her PCP this morning regarding the issues and they recommended she be evaluated in the ED. The patient states that she also has been falling again recently. Due to here BL lower extremity weakness from her previous spine surgery she uses a motorized wheelchair but usually tries to transition herself too and from her bed or lift chair. Her will also try to help but the patient can be stubborn and not ask for help. Her last fall was on 12/09/22. She and her state that she was in her lift chair at home and was trying to transition to her motorized wheelchair. Her was helping her put she slipped and fell on her left shoulder. She also hit the left side of her face/left ear. She denies losing consciousness but has multiple bruises on her face and left arm from the recent fall. Her daughter states that she did have home PT/OT coming in a few times a week but the patient's prescription ran out and they are not coming at this time. The patient follows with the [facility] cardiology and CHF teams. Her home dose of lasix was recently increased from 120 mg PO in the am and 80 in the pm to 120 mg PO BID; this is in addition to her BID spironolactone. Despite the increased dosing she is still having increased swelling in her abdomen and RLE. Per chart review, she was recently see by GI on 11/14/22 for routine colon cancer screening. They believed that her abdominal swelling and lower extremity swelling were likely due to her CHF. When asked, she is supposed to be using her home CPAP machine HS but has not. She states it's because her hospital bed where she normally tries to sleep is in their kitchen. When she can't fall asleep she will often transfer to the recliner in the living room. I stressed the importance of using her CPAP and her daughter agrees. She denies recent fevers, chills, headache, changes in vision, hearing, taste, and smell, chest pain, abdominal pain, nausea, vomiting, diarrhea, dysuria, hematuria, bloody BM's, and melena. The patient states that she has been unable to lay flat at night due to her SOB. I spoke to them regarding code status, the patient wishes to be a full code at this time. If she could not make decisions herself she would want her Daughter, Kalie, to make them for her. Deepali refer to Dr. Palmer's attestation for any changes to the treatment plan Allergies Allergy/AdvReac Type Severity Reaction Status Date / Time capsaicin Allergy Unknown SHORTNESS Verified 12/06/22 13:04 OF BREATH diclofenac Allergy Unknown SHORTNESS Verified 12/06/22 13:04 OF BREATH metoclopramide [From Reglan] Allergy Unknown "went Verified 12/06/22 13:04 crazy" NSAIDS (Non-Steroidal Allergy Unknown Unknown/pt Verified 12/06/22 13:04 Anti-Inflamma not sure about this Home Medications Medication Instructions Recorded Confirmed Type acetaminophen 325 mg tablet 650 mg PO UD PRN Pain 08/08/22 12/13/22 History (Tylenol) albuterol sulfate 90 mcg/actuation 1 puff inhalation Q6 PRN Shortness 08/08/22 12/13/22 History aerosol inhaler (Ventolin HFA) Of Breath Or Wheezing apixaban 5 mg tablet (Eliquis) 5 mg PO BID 08/08/22 12/13/22 History ropinirole 5 mg tablet 5 mg PO QID 09/11/22 12/13/22 History cholecalciferol (vitamin D3) 125 2,000 mcg PO QAM 09/18/22 12/13/22 History mcg (5,000 unit) tablet (Vitamin D3) ferrous sulfate 325 mg (65 mg 325 mg PO QAM 09/18/22 12/13/22 History iron) tablet lidocaine 5 % topical patch 1 patch topical UD PRN Pain 09/18/22 12/13/22 History (Lidoderm) magnesium chloride 64 mg 64 mg PO TID 09/18/22 12/13/22 History tablet,extended release pantoprazole 40 mg tablet,delayed 40 mg PO DAILY #90 tabs 09/28/22 12/13/22 Rx release spironolactone 25 mg tablet 25 mg PO BID #30 tabs 10/21/22 12/13/22 Rx furosemide 40 mg tablet (Lasix) 120 mg PO BID #180 tabs 11/01/22 12/13/22 Rx rosuvastatin 40 mg tablet 40 mg PO DAILY #90 tabs 11/06/22 12/13/22 Rx allopurinol 100 mg tablet 100 mg PO QAM #90 tabs 11/07/22 12/13/22 Rx amitriptyline 50 mg tablet 50 mg PO HS #90 tabs 11/07/22 12/13/22 Rx metoprolol succinate 25 mg 50 mg PO QAM #180 tabs 11/07/22 12/13/22 Rx tablet,extended release 24 hr hydralazine 25 mg tablet 50 mg PO TID #90 tabs 11/29/22 12/13/22 Rx insulin aspart U-100 100 unit/mL 5 unit subcut DAILY 12/06/22 12/13/22 History subcutaneous solution insulin detemir U-100 100 unit/mL See Rx Instructions subcut BID 12/06/22 12/13/22 History subcutaneous solution (Levemir U-100 Insulin) Past Med/Surg History Medical History Aortic stenosis MILD-MOD per 08/2019 echo, but NO SIGNIFICANT STENOSIS noted on 10/12/19 echo. Atrial fibrillation On Eliquis - dx 4-5 yr ago - no hx cardioversion CAD (coronary artery disease) s/p CABG x 2 in 2012. CAD has remained quiescent since then. Follows with Dr. Hernandez, who cleared the patient for lumbar surgery 07/2019. Chronic kidney disease, stage 3 CKD (chronic kidney disease) stage 4, GFR 15-29 ml/min Clostridium difficile infection DX [facility] 12/2018 @ [facility]. Stool NEGATIVE 05/25/19. Diabetes mellitus, type 2 IDDM Diabetic foot ulcer associated with type 2 diabetes mellitus Following with wound clinic [facility]. Dysphagia pt denies Episode of gagging nausea and episodes of gagging/started 2 weeks ago - pt has not notified Fatty liver Gout hx Graves disease Hypertension Indwelling Wilson catheter present Lumbar spinal stenosis Severe at L4-5. 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 Lung cancer S/P RM lobectomy 2015, follows with Dr. Perkins. 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 Venous stasis ulcer of right lower leg with edema of right lower leg open wound to right leg - draining brownish color / pt reports she has a wound care appointment to al right leg & foot - pt doesn't know when appointment is Surgical History Fusion of spine lumbar (07/2019) at [facility] --- uneventful surgery/anesthesia and hospitalization, but patient developed subsequent LE paraplegia. 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 History of appendectomy History of bilateral knee replacement History of bronchoscopy History of cardiac cath 2012 - [facility] [place] - NO STENTS/ANGIOPLASTY -- > CABG History of cholecystectomy History of colonoscopy 11/2018 [facility] History of esophagogastroduodenoscopy (EGD) 11/2018 [facility] History of hysterectomy with oophorectomy KEARA with BSO History of lobectomy of lung RML History of ovarian cystectomy History of surgery Right VATS PROCEDURE History of tubal ligation Hx of CABG 2012 - - [place] - 2 VESSELS Family History Daughter Family history of diabetes mellitus Mother Heart disease Hypertension Myocardial infarction Father Hypertension Other Diabetes Denies family history of Ovarian cancer Prostate cancer Crohn's disease Breast cancer Colorectal cancer Ulcerative colitis Social History Smoking Status: Former smoker Tobacco Type: Cigarettes Cigarettes Per Day: 10; Second Hand Exposure: No; Do You Dip or Chew Tobacco: No; Tobacco Cessation Education Requested by Patient: No Hx Alcohol Use: No Hx Substance Use: No Preferred Language: Spanish Communication Ability: Effective Visual Impairment: No Limitations Hearing Ability: Normal Manager [place] Required: No Beliefs That Will Affect Care: None marital status: Current Living Situation: Spouse and Family Current Living Situation Comment: Live with . current occupational status: retired How many Children do You have: 5 Other Information That Helps Us Care for You: No Feels Safe at Home: Yes Safety Concerns: Feels Safe At This Time Childhood Exposure to Second-Hand Smoke: No Dental Care, Regularly: No Physical Activity Frequency: Does not Exercise Seatbelt Use: always Sunscreen Use: No Assistive Devices: Denture - Upper, Denture - Lower, Glasses and Scooter/Electric Scooter Review of Systems Review of Systems: Denies current fever, chills, headache, changes in vision, hearing, taste, and smell, chest pain, abdominal pain, nausea, vomiting, diarrhea, hematemesis, melena, dysuria, hematuria All systems have been reviewed and are otherwise negative. Physical Exam Physical Exam: Physical Exam: General: In no acute distress, stated age, chronically ill-appearing HEENT: Patient with bruising of the left ear which is in multiple stages of healing, no discharge from the left external ear canal, No other bruising or trauma noted on inspection and palpation of the face, head, and cervical spine, no scleral icterus, pupils around round, symmetrical, and reactive to light, moist mucus membranes, trachea midline, no thyromegaly Chest/Pulm: No respiratory distress, symmetrical chest expansion, crackles noted in the BL lower lung colin, expiratory wheezing noted in all other lung colin Cardiac: Irregular rate and rhythm, systolic murmur noted Abdomen: Negative for bruising, normoactive bowel sounds, soft, non-tender to palpation throughout : Patient with chronic wilson catheter in place and is currently draining clear, yellow urine Musculoskeletal: Patient noted to have bruising on the left upper extremity in multiple stages of healing, left shoulder is tender to palpation but without deformity or crepitus, patient with intact and symmetrical ROM in the BL Upper extremities, patient with minimal strength in the BL lower extremities due to previous back surgery, Extremities: Radial, dorsalis pedis, and posterior tibial pulses are intact and symmetrical, patient with BL stocking in place on the BL LE's, RLE is more swollen than the LLE Skin: As described above Neuro: Alert and oriented to person, place, month, year, and president, no focal defects, CN II-XII tested and intact, Psych: No acute distress, calm and cooperative during the exam Results & Data Results & Data ([facility]) Vital Signs (Past 12 Hours) Vital Signs Temp Pulse Pulse Resp BP BP Pulse Ox 12/13/22 14:21 83 14 120/58 L 94 12/13/22 13:22 80 18 120/58 L 12/13/22 11:28 36.5 C 83 20 139/65 90 O2 Del Method 12/13/22 14:21 Room Air 12/13/22 13:22 12/13/22 11:28 Room Air Laboratory Results Abnormal lab results 12/13/22 12/13/22 12/13/22 Range/Units 12:30 12:30 12:30 RBC 2.87 L (3.93-5.22) M/uL Hgb 7.5 L (12.0-16.0) g/dl Hct 25.8 L (34.1-44.9) % MCHC 29.1 L (32.0-36.0) g/dL RDW Std Deviation 64.3 H (36.4-46.3) fL RDW Coeff of Lelo 19.8 H (11.5-14.5) % MPV 8.6 L (9.4-12.3) fL Lymph # (Auto) 0.44 L (1.2-3.4) K/uL Immature Gran # (Auto) 0.04 H (0.00-0.02) K/uL PT 16.3 H (9.0-12.0) Seconds INR 1.6 H (0.9-1.1) APTT 34.3 H (21.0-31.0) Seconds Sodium (136-145) mmol/L BUN (6-23) mg/dl Creatinine (0.6-1.2) mg/dl BUN/Creatinine Ratio (10-20) Glucose (70-99(Fasting)) mg/dl Troponin I High Sens (0-14) pg/ml B-Natriuretic Peptide 287 H (0-100) pg/ml 12/13/22 Range/Units 12:30 RBC (3.93-5.22) M/uL Hgb (12.0-16.0) g/dl Hct (34.1-44.9) % MCHC (32.0-36.0) g/dL RDW Std Deviation (36.4-46.3) fL RDW Coeff of Lelo (11.5-14.5) % MPV (9.4-12.3) fL Lymph # (Auto) (1.2-3.4) K/uL Immature Gran # (Auto) (0.00-0.02) K/uL PT (9.0-12.0) Seconds INR (0.9-1.1) APTT (21.0-31.0) Seconds Sodium 135 L (136-145) mmol/L BUN 53 H (6-23) mg/dl Creatinine 1.67 H (0.6-1.2) mg/dl BUN/Creatinine Ratio 31.7 H (10-20) Glucose 126 H (70-99(Fasting)) mg/dl Troponin I High Sens 28.0 H (0-14) pg/ml B-Natriuretic Peptide (0-100) pg/ml Diagnostic Findings Venous Doppler Study 12/13/22 12:03 US venous doppler LE RT CLINICAL HISTORY: leg swelling TECHNIQUE: Right lower extremity real-time compression venous ultrasound with Color Doppler imaging. Utilizing real-time ultrasonic imaging multiple real time high-resolution ultrasonic images with compression and noncompression maneuvers of the deep venous system in addition to color doppler imaging were performed from the common femoral vein through the proximal calf veins. COMPARISON: None available at the time of this dictation. FINDINGS: Currently there is normal compressibility of the deep venous system from the common femoral vein through the proximal calf veins. No superficial venous thrombosis is identified. Impression: No evidence of deep venous thrombus. ACT 112: Negative or not required by law. Electronically signed by: Akhil Juárez M.D. 12/13/2022 1:22 PM Chest X-Ray 12/13/22 12:04 XR chest 1V portable CLINICAL HISTORY: sob TECHNIQUE: Single frontal radiograph of the chest was obtained. Comparison: Comparison is made to chest radiograph 08/19/2022 FINDINGS: Median sternotomy wires are unchanged. Cardiomegaly is noted. The aortic arch is calcified. Prominence and cephalization of the vasculature is seen. No evidence of pleural effusion or pneumothorax. IMPRESSION: Cardiomegaly and mild pulmonary edema. No acute fractures are seen. ACT 112: Negative or not required by law. Electronically signed by: Akhil Juárez M.D. 12/13/2022 1:49 PM Shoulder X-Ray 12/13/22 12:06 XR shoulder LT min 2V routine, XR shoulder RT min 2V routine CLINICAL HISTORY: fall TECHNIQUE: 3 views of the bilateral shoulders were obtained. Comparison: Comparison is made to CT chest 11/30/2022 FINDINGS: There is no evidence of an acute fracture. Degenerative changes are seen in the glenohumeral joint. The overlying soft tissues are unremarkable. The visualized portions of the lungs are clear. Median sternotomy wires are seen. IMPRESSION: Degenerative changes in the bilateral shoulders without evidence of acute fracture. ACT 112: Negative or not required by law. Electronically signed by: Akhil Juárez M.D. 12/13/2022 1:48 PM Shoulder X-Ray 12/13/22 12:06 XR shoulder LT min 2V routine, XR shoulder RT min 2V routine CLINICAL HISTORY: fall TECHNIQUE: 3 views of the bilateral shoulders were obtained. Comparison: Comparison is made to CT chest 11/30/2022 FINDINGS: There is no evidence of an acute fracture. Degenerative changes are seen in the glenohumeral joint. The overlying soft tissues are unremarkable. The visualized portions of the lungs are clear. Median sternotomy wires are seen. IMPRESSION: Degenerative changes in the bilateral shoulders without evidence of acute fracture. ACT 112: Negative or not required by law. Electronically signed by: Akhil Juárez M.D. 12/13/2022 1:48 PM ECG Additional Comments: Accelerated Junctional rhythm with occasional Premature ventricular complexes Left axis deviation Non-specific intra-ventricular conduction block Chronic Nonspecific T wave abnormality Lateral leads Abnormal ECG When compared with ECG of 09-AUG-2022 15:58, Vent. rate has increased BY 37 BPM Confirmed by Miles Collazo ([id number]) on 12/13/2022 1:37:16 PM Code Status & VTE Plan Code Status Full code VTE Prophylaxis Plan VTE Prophylaxis will be ordered: Yes Supervising Physician Co-Signing Physician Notes I personally saw and examined the patient. I verified all jimenez points and agree with Kenneth Ibanez PA-C with the following exceptions and/or additions: 77 year old female presents with recurrent falls. Longstanding problems with her right knee and leg. Only more acute problem has been increasing swelling in her bilateral legs R > L which she feels has been the cause of her increased falls risk. No chest pain, shortness of breath or dizziness prior to falling. O/E HS1+2, no murmurs, Chest CTAB, Abdo distended but soft and non tender, 2+ bilateral pitting edema to abdomen A/P Right sided heart failure - discussed importance of wearing CPAP HS as this appears to be the main pathology causing her right sided heart failure. Will attempt to diurese until Cr bump to help with her ambulation. Consider right heart cath as outpatient. PT/OT evaluations. PG Care Time/CCT Total # of Minutes Spent Total Time Spent with Patient: Total time spent is greater than 50% in coordination of care (as documented) at patient's floor/unit and/or counseling patient: Coding [place] [address] INT INP/OBS CARE 3/75MIN Patient Type Established Medical Decision Making High Complexity Diagnoses Fall W19.XXXA Swelling of both lower extremities M79.89 Elevated troponin R77.8 Anemia D64.9 Anemia type: unspecified type Chronic kidney disease, stage 3 N18.30 Chronic kidney disease stage 3 subtype: unspecified whether 3a or 3b Sleep apnea G47.30 Hyperlipidemia E78.5 Type 2 diabetes mellitus with kidney complication, with long-term current use of insulin E11.29; Z79.4 Atrial fibrillation I48.20 Atrial fibrillation type: unspecified chronic CAD (coronary artery disease) I25.10 Associated angina: without angina Coronary Disease-Associated Artery/Lesion type: [place] artery [place] vs. transplanted heart: [place] heart Hypertension I10 Hypertension type: unspecified Chronic right-sided congestive heart failure I50.812 (1) Chronic kidney disease, stage 3 Chronic kidney disease stage 3 subtype: unspecified whether 3a or 3b Qualified Code(s): N18.30 - Chronic kidney disease, stage 3 unspecified (2) CAD (coronary artery disease) Associated angina: without angina Coronary Disease-Associated Artery/Lesion type: [place] artery [place] vs. transplanted heart: [place] heart Qualified Code(s): I25.10 - Atherosclerotic heart disease of [place] coronary artery without angina pectoris (3) Anemia Anemia type: unspecified type Qualified Code(s): D64.9 - Anemia, unspecified (4) Atrial fibrillation Atrial fibrillation type: unspecified chronic Qualified Code(s): I48.20 - Chronic atrial fibrillation, unspecified (5) Hypertension Hypertension type: unspecified Qualified Code(s): I10 - Essential (primary) hypertension
[2022-12-13] MEDS ORDERED: DEXTROSE 50% 50 ML SYRINGE IV PRN (17:15)
[2022-12-13] MEDS ORDERED: LIDOCAINE 5% 1 PATCH TD PRN (17:15)
[2022-12-13] MEDS ORDERED: GLUCAGON FOR INJ 1 MG VIAL SQ PRN (17:15)
[2022-12-13] MEDS ORDERED: GLUCOSE 10 TAB/TUBE PO PRN (17:15)
[2022-12-13] MEDS ORDERED: CARBOHYDRATES FOR HYPOGLYCEMIA PO PRN (17:15)
[2022-12-13] MEDS ORDERED: GLUCOSE 40% GEL 15 GM TUBE PO PRN (17:15)
[2022-12-13] MEDS: INSULIN ASPART PER UNIT SC SCH ×2 (18:09→20:35)
[2022-12-13] MEDS: rOPINIRole HCL 2 MG TABLET PO SCH ×2 (18:31→20:29)
[2022-12-13] MEDS: ALBUT/IPRATROP 3MG/0.5MG NEB 3 ML VIAL NEB SCH (18:56)
[2022-12-13] MEDS: AMITRIPTYLINE HCL 50 MG TAB PO SCH (20:26)
[2022-12-13] MEDS: APIXABAN 5 MG TABLET PO SCH (20:26)
[2022-12-13] MEDS: hydrALAZINE TAB 50 MG TAB PO SCH (20:27)
[2022-12-13] MEDS: FUROSEMIDE 40 MG/4 ML VIAL IV SCH (20:27)
[2022-12-13] MEDS: MAGNESIUM CHLORIDE W/CALCIUM 64MG DELAYED REL TAB PO SCH (20:28)
[2022-12-13] MEDS: SPIRONOLACTONE 25 MG TAB PO SCH (20:30)
[2022-12-13] MEDS: LANTUS PER UNIT CHARGE SQ SCH (20:38)
[2022-12-13] MEDS: ACETAMINOPHEN 500 MG TAB PO PRN (23:04)
[2022-12-14] MEDS ORDERED: MoRPHine SULFATE 2 MG/ML CARP IV STA (00:30)
[2022-12-14] MEDS: ALBUT/IPRATROP 3MG/0.5MG NEB 3 ML VIAL NEB SCH ×4 (07:29→18:55)
[2022-12-14 07:31] LABS: Hematocrit (blood only) 24.2 % (34.1-44.9); Hemoglobin 7.3 g/dl (12.0-16.0); Mean Corpuscular Hemoglobin 26.2 pg (25.0-34.0); Mean Corpuscular Hgb Conc 30.2 g/dL (32.0-36.0); Mean Corpuscular Volume 86.7 fL (80.0-100.0); Mean Platelet Volume 8.8 fL (9.4-12.3); Platelet Count 214 K/uL (130-400); RDW Coefficient of Variation 19.9 % (11.5-14.5); RDW Standard Deviation 62.6 fL (36.4-46.3); Red Blood Count 2.79 M/uL (3.93-5.22); White Blood Count 5.99 K/ul (4.8-10.8)
[2022-12-14 07:54] LABS: Albumin Globulin Ratio 1.5 (0.9-2); Albumin Level 3.6 gm/dl (3.4-5.0); Calcium 8.6 mg/dl (8.5-10.1); Creatinine Clr Calc Pharmacy 35.9 ml/min; Est GFR (African American) 36.5 ml/min; Est GFR (Non-African American) 31.5 ml/min; Globulin 2.4 gm/dl (2.5-4.0); Potassium 3.7 mmol/L (3.5-5.1)
[2022-12-14 08:16] LABS: INR 1.5 (0.9-1.1); Prothrombin Time 15.3 Seconds (9.0-12.0)
--- NOTE | 2022-12-14 08:21 | Hospitalist Progress Note ---
Date of Service December 14, 2022 Assessment & Plan (1) Fall: Plan: Multiple falls at home, had been at rehab/following with wound clinic, had been transferring and also had progressive increase in diuretic regimen and up to 120mg lasix in am w/ 80mg lasix in evening. chronic LE weakness from prior back surgery No trauma on imaging on admit (see below, subacute R metatarsal fx) Combination of LE weakness (dopplers negative for DVT), CHF exacerbation, anemia contributing to falls Suspect anemia also contributing to lack of response with lasix, but given prior imaging w/ cirrhosis and belly edema/lack of appetite, discussed with CHF clinic provider and agreed to switch to torsemide Gets retacrit 40,000 weekly through [facility], every saturday due for dose today, discussed w/ pharmacy and given epogen 40,000 as retacrit not on formulary. Iron 15, TIBC 150, transferrin 102, unsat IBC 135 and trans % sat 10 appears +fecal occult in years past, high risk for endocsopy and was treated with PPI BID. On daily PPI currently, denies any bleeding in urine/ stool, however is on PO iron supp. monitor response to hgb w/ diuretics, may need to consider unit of blood pending BNP 287 on admit (was 212 when admitted in Aug 23) Was given lasix 60mg IV on admit, placed on 80mg IV BID. Will place on torsemide 80mg PO BID for now but suspect much lower needs at discharge. Educated and confirmed to continue low Na diet/fluid restriction Patient also to be on CPAP -- R sided HF, non complaint with CPAP -- encouraged compliance CXR for f/u given increased SOB (denies sputum production) - possible mild left basilar opacity. Incentive spirometer ordered/encouraged. Will monitor on follow up with diuretics Also has been following wound clinic, prior R wound heel/DM ulcer -- xray obtained and subacute fx. Seen by Dr Roberts in past, consultation placed PT/OT consulted -- likely would benefit from at least some rehab/monitoring while diuresing to ensure stable for d/c. Encouraged not to attempt getting out of bed/transferring by herself given fall risk (on precautions and on eliquis) (2) Acute exacerbation of CHF (congestive heart failure): Plan: Patient with hx CAD s/p CABG, R sided HF noncompliant with CPAP. Also with afib, on eliquis. Follows with Dr Hernandez/Carrie BNP 283 (212 prior admit w/ exacerbation) Congestion on CXR Lasix 60mg IV on admit, placed on 80mg IV BID Monitor weights I&O-- net neg 1.2L since admission AHA diet/fluid restriction CHF clinic consulted -- as discussed with them this morning, will switch to torsemide 80mg PO BID for now, continue spironolactone 25mg BID (considering increasing this also as outpatient -- also on and has noted developing cirrhosis prior imaging) Monitor kidney function/electrolytes on diuretics Also repeating ECHO given on exam to eval for any worsening issues. Denies CP or syncope, however did note "legs gave out" but did not black out Monitor on telemetry (3) Chronic right-sided congestive heart failure: Plan: as above (4) Anemia: Plan: 2nd to CKD/chronic illness Follows with [facility], weekly retacrit -- was to get dose today but is in the hospital no bleeding reported but as mentioned, could have some slow bleed consider increasing PPI to BID, but can hold off for now remains on PO iron supplementation I added iron labs to AM labs --> Iron 15, TIBC 150, transferrin 102, unsat IBC 135 and trans % sat 10 Given EPO 40,000 SQ x 1 today TSH checked, wnl Monitor hgb on repeat with diuretics, consider transfusion if needed (5) Atrial fibrillation: Plan: Rate controlled, continues on metoprolol Eliquis 5mg BID Will need to have further discussions with the patient and her family regarding continuing anticoagulation with her risk of falls and further bleeding , however risk/benefit, would likely continue this but will have continued discussion with patient/ tomorrow Keep K~4, Mag ~2 repeating labs this afternoon to ensure stable with continued diuretics (will order 20meq PO KCL while awaiting labs given 3.7 on AM labs and got dose 80mg IV lasix -- also on spironolactone 25mg BID) (6) CAD (coronary artery disease): Plan: Continue statin No CP EKG w/ CP Troponins minimal elevation on HS trop, 2nd to CHF exacerbation as above (7) Swelling of both lower extremities: Plan: Doppler negative for RLE, on eliquis and denies missing any doses Diuretics as outlined above, CHF clinic consulted (8) Elevated troponin: Plan: Likely demand from CHF exacerbation ECHO limited ordered as above Consider having cards arrange for outpatient R heart cath Monitor on telemetry (9) Chronic kidney disease, stage 3: Plan: Renal dose meds/avoid nephrotoxic agents as able Continue diuretics for CHF exacerbation Cr 1.67--> 1.56 w/ diuretics BMP in AM (10) Sleep apnea: Plan: Continue to stress the importance of compliance HS CPAP ordered, patient states she will use it during the admission -- did wear last night, continued compliance stressed (11) Hyperlipidemia: Plan: Continue statin (12) Type 2 diabetes mellitus with kidney complication, with long-term current use of insulin: Plan: Last A1c 5.6 Monitor BSG ACHS, goal range is 110-140 Lantus 5u BID, CRF 40, CR 13 BSGs acceptable, continue to monitor (13) Hypertension: Plan: -Stable -Continue metoprolol, diuretics, and hydralazine (14) Ulcer of right heel: Plan: wound rn consult xray w/ subacute fx ortho consulted -- appreciate assistance will need pt/ot Plan continued inpatient stay switching diuretics to torsemide/monitor response epo SQ x 1, monitor CBC PT/OT consulted Admission and Anticipated Discharge Date Admission Date: December 13, 2022 Supervising Physician Co-Signing Physician Notes PA Supervision Note: I did not personally see or examine the patient today, but I verified all jimenez points of THERESA Pisano's assessment and plan with the following exceptions/additions: None Subjective Eval this afternoon following lunch Poor appetite On lasix 120mgWAM/80mg QPM daily, on lasix 80mg IV BID States breathing slightly worse, however remains on room air Had been transferring some but not much recently due to LE weakness/legs giving out. Discussed repeating limited echo given aortic stenosis/afib to ensure not worsening. Sounds moderate if not severe on exam. No chest pain reported. On Eliquis for Afib, denies any known blood in urine/stool. On iron supplementation but also gets weekly Retacrit with Mauro Herrera -- she is due for dose today (told them she would not be able to make it). Will call pharmacy and provide equivalent while inpatient. Prior rehab through [facility], will ensure PT/OT consultations placed. Moved bowels last night, reports typically does not have an issue with such. entered room at end of encounter, questions/concerns addressed at this time. Review of Systems Review of Systems: All systems reviewed & are unremarkable except as noted in HPI & below Physical Exam Physical Exam: General: WD female sitting up in bed, NAD but reports some shortness of breath, not tachypneic HEENT: head normocephalic, some bruising to L ear, no discharge, mmm, trachea midline, +JVD Resp: lungs diminished in the bases with associated crackles, R>L, end expiratory wheezing, +cough, on room air CV: irregularly irregular, 4/6 systolic murmurw/ radiation to carotids, S1/quiet S2, pitting edema to b/l LE and thighs GI: +BS, +distension +edema, +hepatojugular reflex, ?ascites, ; chronic wilson draining yellow urine MSK/Neuro: b/l LE weakness from back surgery, stockings in pace, RLE>LLE swelling, pulses palpable Psych: AOx3, pleasant and cooperative, forgetful at times but easily reoriented SKin: scattered ecchymosis, slight hematoma to RUE medially, slightly tender to palpation, pulses palpable Results & Data Results & Data ([facility]) Vital Signs (Past 12 Hours) Vital Signs Temp Pulse Pulse Resp BP BP Pulse Ox 12/14/22 07:15 36.8 C 61 16 137/70 90 12/14/22 07:31 71 16 95 12/14/22 03:34 36.6 C 87 18 114/60 93 12/14/22 03:04 79 19 94 12/14/22 00:07 36.5 C 58 L 18 122/70 94 12/13/22 22:46 58 L 12/13/22 23:12 57 L 20 96 12/13/22 21:01 O2 Del Method FiO2 12/14/22 07:15 Room Air 12/14/22 07:31 Room Air 12/14/22 03:34 Room Air 12/14/22 03:04 21 12/14/22 00:07 Room Air 12/13/22 22:46 12/13/22 23:12 21 12/13/22 21:01 Room Air Laboratory Results 12/14/22 12/14/22 12/14/22 Range/Units 16:04 14:35 11:36 WBC (4.8-10.8) K/ul RBC (3.93-5.22) M/uL Hgb (12.0-16.0) g/dl Hct (34.1-44.9) % MCV (80.0-100.0) fL MCH (25.0-34.0) pg MCHC (32.0-36.0) g/dL RDW Std Deviation (36.4-46.3) fL RDW Coeff of Lelo (11.5-14.5) % Plt Count (130-400) K/uL MPV (9.4-12.3) fL PT (9.0-12.0) Seconds INR (0.9-1.1) Sodium (136-145) mmol/L Potassium (3.5-5.1) mmol/L Chloride (98-107) mmol/L Carbon Dioxide (21-32) mmol/L Anion Gap (3-11) BUN (6-23) mg/dl Creatinine (0.6-1.2) mg/dl Est Cr Clr Drug Dosing ml/min Est GFR ( Amer) ml/min Est GFR (Non-Af Amer) ml/min BUN/Creatinine Ratio (10-20) Glucose (70-99(Fasting)) mg/dl POC Glucose 120 H (70-99) mg/dl Calcium (8.5-10.1) mg/dl Magnesium (1.7-2.4) mg/dl Iron (35-150) mcg/dl TIBC (250-450) mcg/dl Unsaturated IBC (155-355) mcg/dl Transferrin % Sat (15-50) % Ferritin (8-388) ng/ml Total Bilirubin (0.2-1.0) mg/dl AST (13-39) U/L ALT (7-52) U/L Alkaline Phosphatase (34-104) U/L Troponin I High Sens (0-14) pg/ml Total Protein (6.0-8.3) gm/dl Albumin (3.4-5.0) gm/dl Globulin (2.5-4.0) gm/dl Albumin/Globulin Ratio (0.9-2) Procalcitonin (0-0.5) ng/ml TSH 2.530 (0.300-4.500) uIu/ml Urine Color Yellow Urine Appearance Turbid A (Clear) Urine pH >= 9.0 H (4.5-7.5) Ur Specific [place] 1.014 (1.000-1.030) Urine Protein 1+ H (Negative) Urine Glucose (UA) Negative (Negative) Urine Ketones Negative (Negative) Urine Blood Trace H (Negative) Urine Nitrite Positive A (Negative) Urine Bilirubin Negative (Negative) Urine Urobilinogen Negative (Negative) Ur Leukocyte Esterase 3+ H (Negative) Urine RBC 0-4 (0-4) /hpf Urine WBC 10-30 H (0-5) /hpf Ur Epithelial Cells 0-5 (0-5) /lpf Triple Phos Crystals Present A (None Prsent) Urine Bacteria 4+ H (Negative) 12/14/22 12/14/22 12/14/22 Range/Units 11:36 11:19 08:29 WBC (4.8-10.8) K/ul RBC (3.93-5.22) M/uL Hgb (12.0-16.0) g/dl Hct (34.1-44.9) % MCV (80.0-100.0) fL MCH (25.0-34.0) pg MCHC (32.0-36.0) g/dL RDW Std Deviation (36.4-46.3) fL RDW Coeff of Lelo (11.5-14.5) % Plt Count (130-400) K/uL MPV (9.4-12.3) fL PT (9.0-12.0) Seconds INR (0.9-1.1) Sodium (136-145) mmol/L Potassium (3.5-5.1) mmol/L Chloride (98-107) mmol/L Carbon Dioxide (21-32) mmol/L Anion Gap (3-11) BUN (6-23) mg/dl Creatinine (0.6-1.2) mg/dl Est Cr Clr Drug Dosing ml/min Est GFR ( Amer) ml/min Est GFR (Non-Af Amer) ml/min BUN/Creatinine Ratio (10-20) Glucose (70-99(Fasting)) mg/dl POC Glucose 143 H 126 H (70-99) mg/dl Calcium (8.5-10.1) mg/dl Magnesium (1.7-2.4) mg/dl Iron (35-150) mcg/dl TIBC (250-450) mcg/dl Unsaturated IBC (155-355) mcg/dl Transferrin % Sat (15-50) % Ferritin (8-388) ng/ml Total Bilirubin (0.2-1.0) mg/dl AST (13-39) U/L ALT (7-52) U/L Alkaline Phosphatase (34-104) U/L Troponin I High Sens (0-14) pg/ml Total Protein (6.0-8.3) gm/dl Albumin (3.4-5.0) gm/dl Globulin (2.5-4.0) gm/dl Albumin/Globulin Ratio (0.9-2) Procalcitonin 0.15 (0-0.5) ng/ml TSH (0.300-4.500) uIu/ml Urine Color Urine Appearance (Clear) Urine pH (4.5-7.5) Ur Specific [place] (1.000-1.030) Urine Protein (Negative) Urine Glucose (UA) (Negative) Urine Ketones (Negative) Urine Blood (Negative) Urine Nitrite (Negative) Urine Bilirubin (Negative) Urine Urobilinogen (Negative) Ur Leukocyte Esterase (Negative) Urine RBC (0-4) /hpf Urine WBC (0-5) /hpf Ur Epithelial Cells (0-5) /lpf Triple Phos Crystals (None Prsent) Urine Bacteria (Negative) 12/14/22 12/14/22 12/14/22 Range/Units 07:12 07:12 07:12 WBC (4.8-10.8) K/ul RBC (3.93-5.22) M/uL Hgb (12.0-16.0) g/dl Hct (34.1-44.9) % MCV (80.0-100.0) fL MCH (25.0-34.0) pg MCHC (32.0-36.0) g/dL RDW Std Deviation (36.4-46.3) fL RDW Coeff of Lelo (11.5-14.5) % Plt Count (130-400) K/uL MPV (9.4-12.3) fL PT 15.3 H (9.0-12.0) Seconds INR 1.5 H (0.9-1.1) Sodium 132 L (136-145) mmol/L Potassium 3.7 (3.5-5.1) mmol/L Chloride 98 (98-107) mmol/L Carbon Dioxide 25 (21-32) mmol/L Anion Gap 9 (3-11) BUN 53 H (6-23) mg/dl Creatinine 1.56 H (0.6-1.2) mg/dl Est Cr Clr Drug Dosing 35.9 ml/min Est GFR ( Amer) 36.5 ml/min Est GFR (Non-Af Amer) 31.5 ml/min BUN/Creatinine Ratio 34.0 H (10-20) Glucose 104 H (70-99(Fasting)) mg/dl POC Glucose (70-99) mg/dl Calcium 8.6 (8.5-10.1) mg/dl Magnesium 2.0 (1.7-2.4) mg/dl Iron 15 L (35-150) mcg/dl TIBC 150 L (250-450) mcg/dl Unsaturated IBC 135 L (155-355) mcg/dl Transferrin % Sat 10 L (15-50) % Ferritin 57.7 (8-388) ng/ml Total Bilirubin 1.0 (0.2-1.0) mg/dl AST 21 (13-39) U/L ALT 10 (7-52) U/L Alkaline Phosphatase 71 (34-104) U/L Troponin I High Sens (0-14) pg/ml Total Protein 6.0 (6.0-8.3) gm/dl Albumin 3.6 (3.4-5.0) gm/dl Globulin 2.4 L (2.5-4.0) gm/dl Albumin/Globulin Ratio 1.5 (0.9-2) Procalcitonin (0-0.5) ng/ml TSH (0.300-4.500) uIu/ml Urine Color Urine Appearance (Clear) Urine pH (4.5-7.5) Ur Specific [place] (1.000-1.030) Urine Protein (Negative) Urine Glucose (UA) (Negative) Urine Ketones (Negative) Urine Blood (Negative) Urine Nitrite (Negative) Urine Bilirubin (Negative) Urine Urobilinogen (Negative) Ur Leukocyte Esterase (Negative) Urine RBC (0-4) /hpf Urine WBC (0-5) /hpf Ur Epithelial Cells (0-5) /lpf Triple Phos Crystals (None Prsent) Urine Bacteria (Negative) 12/14/22 12/13/22 12/13/22 Range/Units 07:12 20:34 18:39 WBC 5.99 (4.8-10.8) K/ul RBC 2.79 L (3.93-5.22) M/uL Hgb 7.3 L (12.0-16.0) g/dl Hct 24.2 L (34.1-44.9) % MCV 86.7 (80.0-100.0) fL MCH 26.2 (25.0-34.0) pg MCHC 30.2 L (32.0-36.0) g/dL RDW Std Deviation 62.6 H (36.4-46.3) fL RDW Coeff of Lelo 19.9 H (11.5-14.5) % Plt Count 214 (130-400) K/uL MPV 8.8 L (9.4-12.3) fL PT (9.0-12.0) Seconds INR (0.9-1.1) Sodium (136-145) mmol/L Potassium (3.5-5.1) mmol/L Chloride (98-107) mmol/L Carbon Dioxide (21-32) mmol/L Anion Gap (3-11) BUN (6-23) mg/dl Creatinine (0.6-1.2) mg/dl Est Cr Clr Drug Dosing ml/min Est GFR ( Amer) ml/min Est GFR (Non-Af Amer) ml/min BUN/Creatinine Ratio (10-20) Glucose (70-99(Fasting)) mg/dl POC Glucose 125 H (70-99) mg/dl Calcium (8.5-10.1) mg/dl Magnesium (1.7-2.4) mg/dl Iron (35-150) mcg/dl TIBC (250-450) mcg/dl Unsaturated IBC (155-355) mcg/dl Transferrin % Sat (15-50) % Ferritin (8-388) ng/ml Total Bilirubin (0.2-1.0) mg/dl AST (13-39) U/L ALT (7-52) U/L Alkaline Phosphatase (34-104) U/L Troponin I High Sens 33.3 H (0-14) pg/ml Total Protein (6.0-8.3) gm/dl Albumin (3.4-5.0) gm/dl Globulin (2.5-4.0) gm/dl Albumin/Globulin Ratio (0.9-2) Procalcitonin (0-0.5) ng/ml TSH (0.300-4.500) uIu/ml Urine Color Urine Appearance (Clear) Urine pH (4.5-7.5) Ur Specific [place] (1.000-1.030) Urine Protein (Negative) Urine Glucose (UA) (Negative) Urine Ketones (Negative) Urine Blood (Negative) Urine Nitrite (Negative) Urine Bilirubin (Negative) Urine Urobilinogen (Negative) Ur Leukocyte Esterase (Negative) Urine RBC (0-4) /hpf Urine WBC (0-5) /hpf Ur Epithelial Cells (0-5) /lpf Triple Phos Crystals (None Prsent) Urine Bacteria (Negative) Diagnostic Findings Foot X-Ray 12/14/22 08:40 RIGHT FOOT 2 VIEWS CLINICAL HISTORY: Falls. Heel wound. FINDINGS: AP and lateral views of the right foot are compared to study dated 06/28/2020. The skeletal structures are osteopenic. There is a subacute/healing an mildly displaced horizontal fracture through the neck of the fifth metatarsal. No additional fracture is identified. Advanced arthritic change is seen throughout the foot and ankle. Pes planus is noted. There is a large plantar heel spur. Degenerative spurring is seen along the dorsal aspect of the tarsal bones. No bony erosion or periostitis is identified. There is soft tissue thinning along the posterior aspect of the heel which may correspond to the reported history of an ulcer/wound. No soft tissue gas is identified. Soft tissue edema is present throughout the forefoot. There is atherosclerotic calcification of the regional arteries. Calcification is seen along the course of the plantar fascia. IMPRESSION: 1. There is a subacute-appearing and mildly displaced fracture through the distal shaft of the fifth metatarsal. 2. No additional acute fracture is identified. 3. There is no bony erosion or periostitis. 4. Diffuse soft tissue edema. 5. Soft tissue thickening dorsal to the calcaneus is similar to previous and may correspond to the reported history of a wound. Electronically signed by: Albert Bonner M.D. 12/14/2022 2:34 PM Chest X-Ray 12/14/22 09:42 XR chest 1V portable CLINICAL HISTORY: short of breath COMPARISON STUDY: Chest CT November 30, 2022. Chest radiograph December 13, 2022. FINDINGS: Median sternotomy suspected trace bilateral pleural effusions are present. There is no pneumothorax. Mild interstitial pulmonary edema is again noted. Median sternotomy are noted. There are postoperative findings within the right lung. Marked cardiomegaly. Mild left basilar opacity. IMPRESSION: 1. Cardiomegaly with mild interstitial pulmonary edema and trace bilateral pleural effusions. 2. Mild left basilar opacity. This likely reflects atelectasis although consolidation could appear similar. ACT 112: Negative or not required by law. Electronically signed by: Dennis Hernadez M.D. 12/14/2022 10:14 AM PG Care Time/CCT Total # of Minutes Spent Total Time Spent with Patient: Total time spent is greater than 50% in coordination of care (as documented) at patient's floor/unit and/or counseling patient: Coding Level of Care Code 83786 SUB INP/OBS CARE 3/50MIN Diagnoses Fall W19.XXXA Acute exacerbation of CHF (congestive heart failure) I50.9 Heart failure type: unspecified Chronic right-sided congestive heart failure I50.812 Anemia D64.9 Anemia type: unspecified type Atrial fibrillation I48.20 Atrial fibrillation type: unspecified chronic CAD (coronary artery disease) I25.10 Associated angina: without angina Coronary Disease-Associated Artery/Lesion type: [place] artery Elem vs. transplanted heart: [place] heart Swelling of both lower extremities M79.89 Elevated troponin R77.8 Chronic kidney disease, stage 3 N18.30 Chronic kidney disease stage 3 subtype: unspecified whether 3a or 3b Sleep apnea G47.30 Hyperlipidemia E78.5 Type 2 diabetes mellitus with kidney complication, with long-term current use of insulin E11.29; Z79.4 Hypertension I10 Hypertension type: unspecified Ulcer of right heel L97.419 (1) Acute exacerbation of CHF (congestive heart failure) Heart failure type: unspecified Qualified Code(s): I50.9 - Heart failure, unspecified (2) Chronic kidney disease, stage 3 Chronic kidney disease stage 3 subtype: unspecified whether 3a or 3b Qualified Code(s): N18.30 - Chronic kidney disease, stage 3 unspecified (3) CAD (coronary artery disease) Associated angina: without angina Coronary Disease-Associated Artery/Lesion type: [place] artery Elem vs. transplanted heart: [place] heart Qualified Code(s): I25.10 - Atherosclerotic heart disease of [place] coronary artery without angina pectoris (4) Anemia Anemia type: unspecified type Qualified Code(s): D64.9 - Anemia, unspecified (5) Atrial fibrillation Atrial fibrillation type: unspecified chronic Qualified Code(s): I48.20 - Chronic atrial fibrillation, unspecified (6) Hypertension Hypertension type: unspecified Qualified Code(s): I10 - Essential (primary) hypertension
[2022-12-14] MEDS: MAGNESIUM CHLORIDE W/CALCIUM 64MG DELAYED REL TAB PO SCH ×3 (08:31→20:05)
[2022-12-14] MEDS: SPIRONOLACTONE 25 MG TAB PO SCH ×2 (08:31→20:05)
[2022-12-14] MEDS: rOPINIRole HCL 2 MG TABLET PO SCH ×4 (08:31→20:04)
[2022-12-14] MEDS: ROSUVASTATIN CALCIUM 20 MG TAB PO SCH (08:32)
[2022-12-14] MEDS: hydrALAZINE TAB 50 MG TAB PO SCH ×3 (08:32→20:06)
[2022-12-14] MEDS: METOPROLOL SUCC 50MG EXT REL TAB PO SCH (08:32)
[2022-12-14] MEDS: APIXABAN 5 MG TABLET PO SCH ×2 (08:32→20:05)
[2022-12-14] MEDS: FERROUS SULFATE 325 MG TAB PO SCH (08:33)
[2022-12-14] MEDS: allopurinoL 100 MG TAB PO SCH (08:33)
[2022-12-14] MEDS: PANTOprazole 40 MG TAB PO SCH (08:33)
[2022-12-14] MEDS: FUROSEMIDE 40 MG/4 ML VIAL IV SCH (08:33)
[2022-12-14] MEDS: INSULIN ASPART PER UNIT SC SCH ×4 (08:46→20:06)
[2022-12-14] MEDS: LANTUS PER UNIT CHARGE SQ SCH ×2 (08:47→20:09)
[2022-12-14 09:18] LABS: Ferritin 57.7 ng/ml (8-388)
--- NOTE | 2022-12-14 10:16 | XRay Report ---
XR chest 1V portable CLINICAL HISTORY: short of breath COMPARISON STUDY: Chest CT November 30, 2022. Chest radiograph December 13, 2022. FINDINGS: Median sternotomy suspected trace bilateral pleural effusions are present. There is no pneu mothorax. Mild interstitial pulmonary edema is again noted. Median sternotomy are noted. There are po stoperative findings within the right lung. Marked cardiomegaly. Mild left basilar opacity. IMPRESSION: 1. Cardiomegaly with mild interstitial pulmonary edema and trace bilateral pleural effusions. 2. Mild left basilar opacity. This likely reflects atelectasis although consolidation could appear si milar. ACT 112: Negative or not required by law. Electronically signed by: Dennis Hernadez M.D. 12/14/2022 10:14 AM
[2022-12-14] MEDS: LIDOCAINE 5% 1 PATCH TD SCH (11:21)
[2022-12-14] MEDS ORDERED: EPOETIN ALFA 40,000 UNITS/ML VIAL SC SCH (13:30)
--- NOTE | 2022-12-14 14:37 | XRay Report ---
RIGHT FOOT 2 VIEWS CLINICAL HISTORY: Falls. Heel wound. FINDINGS: AP and lateral views of the right foot are compared to study dated 06/28/2020. The skeletal structures are osteopenic. There is a subacute/healing an mildly displaced horizontal fracture throug h the neck of the fifth metatarsal. No additional fracture is identified. Advanced arthritic change i s seen throughout the foot and ankle. Pes planus is noted. There is a large plantar heel spur. Degene rative spurring is seen along the dorsal aspect of the tarsal bones. No bony erosion or periostitis i s identified. There is soft tissue thinning along the posterior aspect of the heel which may correspo nd to the reported history of an ulcer/wound. No soft tissue gas is identified. Soft tissue edema is present throughout the forefoot. There is atherosclerotic calcification of the regional arteries. Guy cification is seen along the course of the plantar fascia. IMPRESSION: 1. There is a subacute-appearing and mildly displaced fracture through the distal shaft of the fifth metatarsal. 2. No additional acute fracture is identified. 3. There is no bony erosion or periostitis. 4. Diffuse soft tissue edema. 5. Soft tissue thickening dorsal to the calcaneus is similar to previous and may correspond to the re ported history of a wound. Electronically signed by: Albert Bonner M.D. 12/14/2022 2:34 PM
[2022-12-14 14:54] LABS: Appearance Urine Turbid (Clear); Bilirubin Urine Negative (Negative); Blood Urine Trace (Negative); Color Urine Yellow; Glucose Urine UA Negative (Negative); Ketones Urine Negative (Negative); Leukocyte Esterase Urine 3+ (Negative); Nitrite Urine Positive (Negative); Specific Gravity Urine 1.014 (1.000-1.030); Urobilinogen Urine Negative (Negative); pH Urine >= 9.0 (4.5-7.5)
[2022-12-14 15:00] LABS: Protein Urine 1+ (Negative)
[2022-12-14 15:37] LABS: Epithelial Cell Urine 0-5 /lpf (0-5)
[2022-12-14 15:38] LABS: Bacteria Urine 4+ (Negative); RBC Urine 0-4 /hpf (0-4); Triple Phosphate Crystal Urine Present (None Prsent)
--- NOTE | 2022-12-14 15:45 | Heart Failure Consultation ---
Date of Consultation December 14, 2022 Assessment & Plan (1) Swelling of both lower extremities: (2) Chronic kidney disease, stage 3: (3) Sleep apnea: (4) Atrial fibrillation: (5) CAD (coronary artery disease): (6) Obesity: (7) Pulmonary hypertension: (8) Hypertension: (9) (HFpEF) heart failure with preserved ejection fraction: (10) Cirrhosis: (11) Valvular heart disease: Plan 1. Congestive heart failure with right ventricular systolic dysfunction: She is hypervolemic today- consistent with right sided symptoms. Her pulmonary symptoms have resolved. Suspect her anemia is contributing to her DIALLO. Kidney function and electrolytes are stable. She has not responded well to high doses of Lasix as outpatient. Agree with transition to Torsemide for improved bioavailability. Continue 80 mg PO BID and monitor output. Goal of 1-2 L/day. Continue Spironolactone 25 mg BID. Consider increasing this for right sided symptoms if needed. Continue to monitor potassium. Patient is unable to do daily weights at home which will make her volume management challenging. Continue home PT- may need to consider short term rehab stay for strengthening. Low sodium diet, less than 2,000 mg daily. Strict I&Os. 2. Valvular heart disease: /MR/TR. Mild to moderate on most recent echocardiogram, likely done in the setting of hypervolemia. Continue to monitor. Consider repeat study once euvolemic for better assessment. 3. Atrial fibrillation: Asymptomatic. Continue rate control with Metoprolol. Continue anti-coagulation. 4. CAD: No anginal symptoms. Continue medical therapy. 5. JASON: Encourage CPAP compliance. 6. Hypertension: Controlled. Continue current medical therapy. 7. Pulmonary hypertension: Continue diuretics as above. Most recent echo done while hypervolemic. Would consider outpatient study once optimized. 8. Anemia: Long standing. Follows with [facility] for weekly Retacrit. Planning to treat while inpatient. Likely contributing to her dyspnea and diuretic resistance. Disposition: Recommend close outpatient follow up with the heart failure program. History of Present Illness Attending Physician: Kimmie Villagran MD History of Present Illness Ms. Ramires is a 77-year-old female with a history including paraplegia with chronic catheter, TIA, DM, PAD, anemia, morbid obesity, paraplegia, CHF, coronary artery disease status post CABG, obstructive sleep apnea noncompliant with CPAP and history of neuroendocrine tumor of the right middle lobe status post resection in 2016. She's currently admitted for hypervolemia. Dr. Ramírez and are her primary cardiologists. Recent cardiac studies: 1. Echocardiogram: 09/24/20- Normal LV size with low normal systolic function. EF 50-55%. No regional wall motion abnormalities. Septal flattening suggests RV overload. Moderate LVH. Normal RV size with severely reduced systolic function. Severe left atrial dilation. Mild . Mild MR. Mild-moderate TR. Moderate pulmonary hypertension. RVSP 58 mmHg. 2. 11/02/21 Echo: B[place]line LV dilation. mild LVH. Mildly reduced biv systolic function. EF 45-50% Moderate left and mild right atrial dilation. Mild-moderate . Mild to mod MR. Mild TR. Normal RVSP. Probable elevated CVP. 3. 07/31/22 Echo: Normal LV size and systolic function. EF 55-60% no regional wall motion abnormalities. Severe concentric LVH. Mildly dilated RV with normal systolic function. Severe left atrial dilation. Moderate right atrial dilation. Mild . Mild MR. Mild to moderate TR. Severe pulmonary hypertension. RVSP 64 mmHg. Patient presented to the ED yesterday with increasing shortness of breath and increasing lower extremity edema causing falls at home. She failed to respond to escalating doses of her home diuretics. BNP 287. Hgb 7.5. CXR with mild pulmonary edema. She was treated with IV Lasix 60 mg in the ED. On admission she was initiated on Lasix 80 mg IV BID. Spironolactone will continue at her home dose. Patient was evaluated in her room today. Her accompanies her. She reports feeling slightly improved from yesterday. She is breathing easier and is tolerating room air. She slept well with her head slightly elevated. Her lower extremity edema is about the same. She feels her abdomen is at baseline. She is net negative 1.2 L overnight. Her weight is 241 which is consistent with her baseline. She denies chest pain, cough, palpitations, lightheadedness. Allergies Allergy/AdvReac Type Severity Reaction Status Date / Time capsaicin Allergy Unknown SHORTNESS Verified 12/06/22 13:04 OF BREATH diclofenac Allergy Unknown SHORTNESS Verified 12/06/22 13:04 OF BREATH metoclopramide [From Reglan] Allergy Unknown "went Verified 12/06/22 13:04 crazy" NSAIDS (Non-Steroidal Allergy Unknown Unknown/pt Verified 12/06/22 13:04 Anti-Inflamma not sure about this Home Medications Medication Instructions Recorded Confirmed Type acetaminophen 325 mg tablet 650 mg PO UD PRN Pain 08/08/22 12/13/22 History (Tylenol) albuterol sulfate 90 mcg/actuation 1 puff inhalation Q6 PRN Shortness 08/08/22 12/13/22 History aerosol inhaler (Ventolin HFA) Of Breath Or Wheezing apixaban 5 mg tablet (Eliquis) 5 mg PO BID 08/08/22 12/13/22 History ropinirole 5 mg tablet 5 mg PO QID 09/11/22 12/13/22 History cholecalciferol (vitamin D3) 125 2,000 mcg PO QAM 09/18/22 12/13/22 History mcg (5,000 unit) tablet (Vitamin D3) ferrous sulfate 325 mg (65 mg 325 mg PO QAM 09/18/22 12/13/22 History iron) tablet lidocaine 5 % topical patch 1 patch topical UD PRN Pain 09/18/22 12/13/22 History (Lidoderm) magnesium chloride 64 mg 64 mg PO TID 09/18/22 12/13/22 History tablet,extended release pantoprazole 40 mg tablet,delayed 40 mg PO DAILY #90 tabs 09/28/22 12/13/22 Rx release spironolactone 25 mg tablet 25 mg PO BID #30 tabs 10/21/22 12/13/22 Rx furosemide 40 mg tablet (Lasix) 120 mg PO BID #180 tabs 11/01/22 12/13/22 Rx rosuvastatin 40 mg tablet 40 mg PO DAILY #90 tabs 11/06/22 12/13/22 Rx allopurinol 100 mg tablet 100 mg PO QAM #90 tabs 11/07/22 12/13/22 Rx amitriptyline 50 mg tablet 50 mg PO HS #90 tabs 11/07/22 12/13/22 Rx metoprolol succinate 25 mg 50 mg PO QAM #180 tabs 11/07/22 12/13/22 Rx tablet,extended release 24 hr hydralazine 25 mg tablet 50 mg PO TID #90 tabs 11/29/22 12/13/22 Rx insulin aspart U-100 100 unit/mL 5 unit subcut DAILY 12/06/22 12/13/22 History subcutaneous solution insulin detemir U-100 100 unit/mL See Rx Instructions subcut BID 12/06/22 12/13/22 History subcutaneous solution (Levemir U-100 Insulin) Patient History Medical History Aortic stenosis MILD-MOD per 08/2019 echo, but NO SIGNIFICANT STENOSIS noted on 10/12/19 echo. Atrial fibrillation On Eliquis - dx 4-5 yr ago - no hx cardioversion CAD (coronary artery disease) s/p CABG x 2 in 2012. CAD has remained quiescent since then. Follows with Dr. Henrandez, who cleared the patient for lumbar surgery 07/2019. Chronic kidney disease, stage 3 CKD (chronic kidney disease) stage 4, GFR 15-29 ml/min Clostridium difficile infection DX [facility] 12/2018 @ [facility]. Stool NEGATIVE 05/25/19. Diabetes mellitus, type 2 IDDM Diabetic foot ulcer associated with type 2 diabetes mellitus Following with wound clinic [facility]. Dysphagia pt denies Episode of gagging nausea and episodes of gagging/started 2 weeks ago - pt has not notified Fatty liver Gout hx Graves disease Hypertension Indwelling Soto catheter present Lumbar spinal stenosis Severe at L4-5. 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 Lung cancer S/P RM lobectomy 2015, follows with Dr. Perkins. 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 Venous stasis ulcer of right lower leg with edema of right lower leg open wound to right leg - draining brownish color / pt reports she has a wound care appointment to eval right leg & foot - pt doesn't know when appointment is Surgical History Fusion of spine lumbar (07/2019) at [facility] --- uneventful surgery/anesthesia and hospitalization, but patient developed subsequent LE paraplegia. 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 History of appendectomy History of bilateral knee replacement History of bronchoscopy History of cardiac cath 2012 - [facility] - [place] - NO STENTS/ANGIOPLASTY -- > CABG History of cholecystectomy History of colonoscopy 11/2018 [facility] History of esophagogastroduodenoscopy (EGD) 11/2018 [facility] History of hysterectomy with oophorectomy KEARA with BSO History of lobectomy of lung RML History of ovarian cystectomy History of surgery Right VATS PROCEDURE History of tubal ligation Hx of CABG 2012 - - [place] [facility] - 2 VESSELS Family History Daughter Family history of diabetes mellitus Mother Heart disease Hypertension Myocardial infarction Father Hypertension Other Diabetes Denies family history of Ovarian cancer Prostate cancer Crohn's disease Breast cancer Colorectal cancer Ulcerative colitis Social History Smoking Status: Former smoker Tobacco Type: Cigarettes Cigarettes Per Day: 10; Second Hand Exposure: No; Do You Dip or Chew Tobacco: No; Tobacco Cessation Education Requested by Patient: No Hx Alcohol Use: No Hx Substance Use: No Preferred Language: Faroese Communication Ability: Effective Visual Impairment: No Limitations Hearing Ability: Normal Director Of Real Estate Required: No Beliefs That Will Affect Care: None marital status: Current Living Situation: Spouse and Family Current Living Situation Comment: Live with . current occupational status: retired How many Children do You have: 5 Other Information That Helps Us Care for You: No Feels Safe at Home: Yes Safety Concerns: Feels Safe At This Time Childhood Exposure to Second-Hand Smoke: No Dental Care, Regularly: No Physical Activity Frequency: Does not Exercise Seatbelt Use: always Sunscreen Use: No Assistive Devices: CPAP, Glasses, Hospital Bed, Mechanical Lift and Wheelchair Physical Exam Physical Exam: Constitutional: Alert, oriented, in no acute distress HEENT: Head is atraumatic and normocephalic. EOMs intact. Sclera anicteric. Face is symmetric. No perioral cyanosis. Mucous membranes moist. Neck: Supple, - JVD. Pulmonary: Normal respiratory effort, bibasilar crackles. Decreased breath sounds throughout. Cardiac: Regular rate and rhythm. Normal S1 and S2, no gallops, no rubs. Grade II systolic murmur. Extremities: 2+ radial pulses bilaterally. 2+ posterior tibialis pulses bilaterally. 2-3+ pitting edema bilaterally. No cyanosis or clubbing. Abdomen: Normal bowel sounds, soft, non-tender, no abdominal mass palpate. Obese. Skin: Normal skin color, turgor, and pigmentation, no rash, no skin lesions. Ecchymosis noted from fall. Neurological: Patient is awake, alert, and oriented. Pleasant and cooperative. Answers questions appropriately. Speech is clear. Results & Data ([facility]) Vital Signs (Past 12 Hours) Vital Signs Temp Pulse Pulse Resp BP Pulse Ox O2 Del Method 12/14/22 15:12 98.2 F 56 L 20 117/66 96 Room Air 12/14/22 11:47 Room Air 12/14/22 10:50 98.1 F 64 19 118/71 96 Room Air 12/14/22 07:30 61 12/14/22 10:12 96 H 18 95 Room Air 12/14/22 07:15 98.2 F 61 16 137/70 90 Room Air 12/14/22 07:31 71 16 95 Room Air Coding Level of Care Code 90327 INT INP/OBS CARE 3/75MIN Diagnoses Swelling of both lower extremities M79.89 Chronic kidney disease, stage 3 N18.30 Chronic kidney disease stage 3 subtype: unspecified whether 3a or 3b Sleep apnea G47.30 Atrial fibrillation I48.20 Atrial fibrillation type: unspecified chronic CAD (coronary artery disease) I25.10 Associated angina: without angina Coronary Disease-Associated Artery/Lesion type: [place] artery [place] vs. transplanted heart: [place] heart Obesity E66.9 Pulmonary hypertension I27.20 Hypertension I10 Hypertension type: unspecified (HFpEF) heart failure with preserved ejection fraction I50.30 Cirrhosis K74.60 Valvular heart disease I38 (1) Chronic kidney disease, stage 3 Chronic kidney disease stage 3 subtype: unspecified whether 3a or 3b Qualified Code(s): N18.30 - Chronic kidney disease, stage 3 unspecified (2) CAD (coronary artery disease) Associated angina: without angina Coronary Disease-Associated Artery/Lesion type: [place] artery [place] vs. transplanted heart: [place] heart Qualified Code(s): I25.10 - Atherosclerotic heart disease of [place] coronary artery without angina pectoris (3) Atrial fibrillation Atrial fibrillation type: unspecified chronic Qualified Code(s): I48.20 - Chronic atrial fibrillation, unspecified (4) Hypertension Hypertension type: unspecified Qualified Code(s): I10 - Essential (primary) hypertension
[2022-12-14] MEDS: TORSEMIDE 10 MG TAB PO SCH (16:51)
--- NOTE | 2022-12-14 17:51 | XCELERA ---
[id number] [id number]
--- NOTE | 2022-12-14 18:00 | Orthopedic Consultation ---
Date of Service December 14, 2022 Assessment & Plan (1) Fracture of fifth metatarsal bone of right foot: This fracture is essentially clinically healed. There is no need for intervention. The mechanism unclear but the fracture is clinically stable and healed. (2) Ulcer of right heel: She does have an active heel ulcer. She is got bandage in place. She got waffle boots in place. Would recommend she keep all pressure off her heel and should have rolls underneath her legs and calf to keep the pressure off the heel. I would recommend consulting wound clinic for wound management. No need for orthopedic care. History of Present Illness Reason for Consultation: . Right fifth metatarsal fracture Requesting Physician: . Attending Physician: Kimmie Villagran MD . Patient is 77-year-old female with multiple medical comorbidities who has a long history of foot wounds of bone followed in the wound clinic. She has been admitted to the hospital for medical issues. She was noticed on x-ray to have 1/5 metatarsal fracture. Were consulted for evaluation. Patient has had a history of recent falls. She denies any real significant foot pain. She does say she had chronic ulcerations to her feet managed by the wound clinic. She says her heel was healed up at 1 point but has come back somewhat. Not really painful. Allergies Allergy/AdvReac Type Severity Reaction Status Date / Time capsaicin Allergy Unknown SHORTNESS Verified 12/06/22 13:04 OF BREATH diclofenac Allergy Unknown SHORTNESS Verified 12/06/22 13:04 OF BREATH metoclopramide [From Reglan] Allergy Unknown "went Verified 12/06/22 13:04 crazy" NSAIDS (Non-Steroidal Allergy Unknown Unknown/pt Verified 12/06/22 13:04 Anti-Inflamma not sure about this Home Medications Medication Instructions Recorded Confirmed Type acetaminophen 325 mg tablet 650 mg PO UD PRN Pain 08/08/22 12/13/22 History (Tylenol) albuterol sulfate 90 mcg/actuation 1 puff inhalation Q6 PRN Shortness 08/08/22 12/13/22 History aerosol inhaler (Ventolin HFA) Of Breath Or Wheezing apixaban 5 mg tablet (Eliquis) 5 mg PO BID 08/08/22 12/13/22 History ropinirole 5 mg tablet 5 mg PO QID 09/11/22 12/13/22 History cholecalciferol (vitamin D3) 125 2,000 mcg PO QAM 09/18/22 12/13/22 History mcg (5,000 unit) tablet (Vitamin D3) ferrous sulfate 325 mg (65 mg 325 mg PO QAM 09/18/22 12/13/22 History iron) tablet lidocaine 5 % topical patch 1 patch topical UD PRN Pain 09/18/22 12/13/22 History (Lidoderm) magnesium chloride 64 mg 64 mg PO TID 09/18/22 12/13/22 History tablet,extended release pantoprazole 40 mg tablet,delayed 40 mg PO DAILY #90 tabs 09/28/22 12/13/22 Rx release spironolactone 25 mg tablet 25 mg PO BID #30 tabs 10/21/22 12/13/22 Rx furosemide 40 mg tablet (Lasix) 120 mg PO BID #180 tabs 11/01/22 12/13/22 Rx rosuvastatin 40 mg tablet 40 mg PO DAILY #90 tabs 11/06/22 12/13/22 Rx allopurinol 100 mg tablet 100 mg PO QAM #90 tabs 11/07/22 12/13/22 Rx amitriptyline 50 mg tablet 50 mg PO HS #90 tabs 11/07/22 12/13/22 Rx metoprolol succinate 25 mg 50 mg PO QAM #180 tabs 11/07/22 12/13/22 Rx tablet,extended release 24 hr hydralazine 25 mg tablet 50 mg PO TID #90 tabs 11/29/22 12/13/22 Rx insulin aspart U-100 100 unit/mL 5 unit subcut DAILY 12/06/22 12/13/22 History subcutaneous solution insulin detemir U-100 100 unit/mL See Rx Instructions subcut BID 12/06/22 12/13/22 History subcutaneous solution (Levemir U-100 Insulin) Past Med/Surg History Medical History Aortic stenosis MILD-MOD per 08/2019 echo, but NO SIGNIFICANT STENOSIS noted on 10/12/19 echo. Atrial fibrillation On Eliquis - dx 4-5 yr ago - no hx cardioversion CAD (coronary artery disease) s/p CABG x 2 in 2012. CAD has remained quiescent since then. Follows with Dr. Hernandez, who cleared the patient for lumbar surgery 07/2019. Chronic kidney disease, stage 3 CKD (chronic kidney disease) stage 4, GFR 15-29 ml/min Clostridium difficile infection DX [facility] 12/2018 @ [facility]. Stool NEGATIVE 05/25/19. Diabetes mellitus, type 2 IDDM Diabetic foot ulcer associated with type 2 diabetes mellitus Following with wound clinic [facility]. Dysphagia pt denies Episode of gagging nausea and episodes of gagging/started 2 weeks ago - pt has not notified dr Fatty liver Gout hx Graves disease Hypertension Indwelling Soto catheter present Lumbar spinal stenosis Severe at L4-5. 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 Lung cancer S/P RM lobectomy 2015, follows with Dr. Perkins. 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 Venous stasis ulcer of right lower leg with edema of right lower leg open wound to right leg - draining brownish color / pt reports she has a wound care appointment to al right leg & foot - pt doesn't know when appointment is Surgical History Fusion of spine lumbar (07/2019) at [facility] --- uneventful surgery/anesthesia and hospitalization, but patient developed subsequent LE paraplegia. 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 History of appendectomy History of bilateral knee replacement History of bronchoscopy History of cardiac cath 2012 [facility] - - NO STENTS/ANGIOPLASTY -- > CABG History of cholecystectomy History of colonoscopy 11/2018 [facility] History of esophagogastroduodenoscopy (EGD) 11/2018 [facility] History of hysterectomy with oophorectomy KEARA with BSO History of lobectomy of lung RML History of ovarian cystectomy History of surgery Right VATS PROCEDURE History of tubal ligation Hx of CABG 2012 - - [place] - 2 VESSELS Family History Daughter Family history of diabetes mellitus Mother Heart disease Hypertension Myocardial infarction Father Hypertension Other Diabetes Denies family history of Ovarian cancer Prostate cancer Crohn's disease Breast cancer Colorectal cancer Ulcerative colitis Social History Smoking Status: Former smoker Tobacco Type: Cigarettes Cigarettes Per Day: 10; Second Hand Exposure: No; Do You Dip or Chew Tobacco: No; Tobacco Cessation Education Requested by Patient: No Hx Alcohol Use: No Hx Substance Use: No Preferred Language: Mongolian Communication Ability: Effective Visual Impairment: No Limitations Hearing Ability: Normal Pensionholder Information Clerk Required: No Beliefs That Will Affect Care: None marital status: Current Living Situation: Spouse and Family Current Living Situation Comment: Live with . current occupational status: retired How many Children do You have: 5 Other Information That Helps Us Care for You: No Feels Safe at Home: Yes Safety Concerns: Feels Safe At This Time Childhood Exposure to Second-Hand Smoke: No Dental Care, Regularly: No Physical Activity Frequency: Does not Exercise Seatbelt Use: always Sunscreen Use: No Assistive Devices: CPAP, Glasses, Hospital Bed, Mechanical Lift and Wheelchair Review of Systems All systems reviewed & are unremarkable except as noted in HPI & below. Physical Exam . Physical examination the right foot reveals the patient be in a well-padded waffle boot. She got diffuse edema in her foot. There is no malalignment or deformity. She has no tenderness at her fifth metatarsal. She can dorsiflex and plantarflex her foot. She does have a ulcer on the back of her heel full-thickness. Is got a bandage in place. There are no signs of active infection. Results & Data Results & Data Laboratory Results . Diagnostic Findings . X-rays of the foot reviewed. It shows chronic diffuse osteopenia. She does have a healing fifth metatarsal neck fracture with a callus formed. No signs of bone destruction or infection or osteomyelitis. PG Care Time/CCT Total # of Minutes Spent Total Time Spent with Patient: Total time spent is greater than 50% in coordination of care (as documented) at patient's floor/unit and/or counseling patient: Coding Level of Care Code INP/OBS CONSULT LVL 3, 45 MIN Diagnoses Fracture of fifth metatarsal bone of right foot S92.351A Ulcer of right heel L97.419
[2022-12-14] MEDS ORDERED: POTASSIUM CHLORIDE CRTAB 20 MEQ TABCR PO STA (18:40)
[2022-12-14 19:27] LABS: BUN Creatinine Ratio 30.3 (10-20); Calcium 8.6 mg/dl (8.5-10.1); Creatinine Clr Calc Pharmacy 31.5 ml/min; Est GFR (African American) 31.1 ml/min; Est GFR (Non-African American) 26.9 ml/min; Potassium 3.8 mmol/L (3.5-5.1)
[2022-12-14] MEDS: guaiFENesin 600 MG TABCR PO SCH (20:04)
[2022-12-14] MEDS: AMITRIPTYLINE HCL 50 MG TAB PO SCH (20:06)
[2022-12-15] MEDS: COUGH DROP (SUGAR FREE) LOZ 24 LOZ/1 BOX BUCCAL PRN ×2 (02:16→10:28)
[2022-12-15 05:38] LABS: Hematocrit (blood only) 24.6 % (34.1-44.9); Hemoglobin 7.6 g/dl (12.0-16.0); Mean Corpuscular Hemoglobin 26.3 pg (25.0-34.0); Mean Corpuscular Hgb Conc 30.9 g/dL (32.0-36.0); Mean Corpuscular Volume 85.1 fL (80.0-100.0); Mean Platelet Volume 8.6 fL (9.4-12.3); Platelet Count 210 K/uL (130-400); RDW Coefficient of Variation 19.9 % (11.5-14.5); RDW Standard Deviation 61.7 fL (36.4-46.3); Red Blood Count 2.89 M/uL (3.93-5.22); White Blood Count 7.21 K/ul (4.8-10.8)
[2022-12-15 05:50] LABS: Albumin Globulin Ratio 1.5 (0.9-2); Albumin Level 3.7 gm/dl (3.4-5.0); BUN Creatinine Ratio 29.3 (10-20); Bilirubin,Total 1.3 mg/dl (0.2-1.0); Calcium 8.6 mg/dl (8.5-10.1); Creatinine Clr Calc Pharmacy 29.8 ml/min; Est GFR (African American) 29.1 ml/min; Est GFR (Non-African American) 25.1 ml/min; Globulin 2.5 gm/dl (2.5-4.0); Potassium 4.1 mmol/L (3.5-5.1); Total Protein 6.2 gm/dl (6.0-8.3)
[2022-12-15 05:52] LABS: INR 1.5 (0.9-1.1); Prothrombin Time 16.1 Seconds (9.0-12.0)
[2022-12-15] MEDS: ALBUT/IPRATROP 3MG/0.5MG NEB 3 ML VIAL NEB SCH ×4 (07:06→20:06)
--- NOTE | 2022-12-15 08:03 | Hospitalist Progress Note ---
Date of Service December 15, 2022 Assessment & Plan (1) Fall: Plan: Multiple falls at home, had been at rehab/following with wound clinic, had been transferring and also had progressive increase in diuretic regimen and up to 120mg lasix in am w/ 80mg lasix in evening. Likely combination of chronic LE weakness from prior back surgery, deconditioning, CHF exacerbation, anemia, possible UTI as well No trauma on imaging on admit (see below, subacute R metatarsal fx) Dopplers NEGATIVE for DVT , CT head negative CHF: -- R sided HF, non-compliance w/ CPAP (did wear 2 days ago, not last night -- she states no one brought in) -- Lasix 120mg PO QAM, 80mg QPM prior to admit, presented with BNP 287 w/ prior exacerbation admit in Aug w/ BNP 212 -- ECHO unchanged Given Lasix 60mg IV on admit, placed on 80mg IV BID continuous and switched to torsemide 80mg PO BID last evening but decreased to 40mg PO BID (will hold dose for this evening as she got 80mg PO this morning prior to being reduced to 60mg initially) -- Remains on spironolactone 25mg BID --CHF clinic on consult -- Monitor I&O, weights (net negative 1.5L) Anemia - weekly retracrit, missed dose yesterday but given EPO for iron studies Iron 15, TIBC 150, transferrin 102, unsat IBC 135 and trans % sat 10 - Hgb 7.6 from 7.3 with such, also diuretics as above - TSH wnl - No bleeding reported, however on iron BID, prior admit anemia/PRBC transfusion w/o scope given high risk. 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 no treatment - wound RN on consult for wound, no drainage/infection but full thickness (prior cx pseudomonas/staph aureus in September) -- if any drainage, would collect sample Cirrhosis -- noted on prior imaging early cirrhosis, ammonia not elevated -- no abd pain reported today, has ascites on exam - diuretics as outlined -- appears most recent c-scope/egd w/ Dr Haywood in September 2022--> C-scope notes redundant colon, referred for virtual colonoscopy/ct colonography (done in October -- normal, noted cardiomegaly/volume overload, anasarca, multiple stable subcentimeter pulm nodules stable since PET may 2022). UTI -- suspected, UA obtained last evening 4+ bacteria, low grade temp 37.6C (runs low typically though) -- Urine cx more than 3 types, repeat urine cx ordered but placed on ceftriaxone IV daily empirically, also obtained blood cultures -- Renal US obtained given triple phos crystals/look for stones, no CVA tenderness on exam -- checked Nh3 given underlying cirrhosis, not elevated. States moving her bowels -- Chronic suprapubic catheter, exchanged end of last month -- No leukocytosis on admit, but runs low temps routinely -- temp 37.6C last evening PT/OT consulted -- likely would benefit from at least some rehab/monitoring while diuresing to ensure stable for d/c. Encouraged not to attempt getting out of bed/transferring by herself given fall risk (on precautions and on eliquis) (2) Acute exacerbation of CHF (congestive heart failure): Plan: Patient with hx CAD s/p CABG, R sided HF noncompliant with CPAP. Also with afib, on eliquis. Follows with Dr Hernandez/Carrie BNP elevation, diuretics as outlined, decreased to prevent over diuresis given drop in Na level. TSH wnl. Weights/I&O, CHF follow up. (3) Chronic right-sided congestive heart failure: Plan: as above (4) Anemia: Plan: 2nd to CKD/chronic illness EPO 12/14, to continue weekly w/ [facility] hgb improved on repeat, around baseline TSH wnl (5) Atrial fibrillation: Plan: Rate controlled, continues on metoprolol Eliquis 5mg BID -- despite high risk w/ falls, is not very ambulatory at baseline and rec continuing AC Keep mag ~2, K~4 (6) CAD (coronary artery disease): Plan: No CP reported, trops minor elevation, 2nd to CHF/anemia as above EKG w/ CP Monitor on tele (7) Swelling of both lower extremities: Plan: Doppler negative for RLE, on eliquis and denies missing any doses Diuretics as outlined above, CHF clinic consulted (8) Elevated troponin: Plan: Likely demand from CHF exacerbation/anemia ECHO limited ordered as above, consider having cards arrange for outpatient R heart cath (9) Chronic kidney disease, stage 3: Plan: Renal dose meds/avoid nephrotoxic agents as able Cr improved initially w/ diuretics, now elevated but not above her baseline renal dose meds/avoid nephrotoxic agents as able nephro consulted for additional assistance w/ diuretics given CKD/cirrhosis as well (10) Sleep apnea: Plan: Continue to stress the importance of compliance HS CPAP ordered, patient states she will use it during the admission -- did wear last night, continued compliance stressed (11) Hyperlipidemia: Plan: Continue statin (12) Type 2 diabetes mellitus with kidney complication, with long-term current use of insulin: Plan: Last A1c 5.6 Monitor BSG ACHS, goal range is 110-140 Lantus 5u BID, CRF 40, CR 13 BSGs acceptable, continue to monitor (13) Hypertension: Plan: Stable Continue metoprolol, diuretics, and hydralazine (14) Ulcer of right heel: Plan: wound rn consult xray w/ subacute fx ortho consulted -- no treatment boots (has in room), keep pressure off heal PT/OT consulted Plan changed to full admit Admission and Anticipated Discharge Date Admission Date: December 13, 2022 Supervising Physician Co-Signing Physician Notes PA Supervision Note: I did not personally see or examine the patient today, but I verified all jimenez points of THERESA Pisano's assessment and plan with the following exceptions/additions: None Subjective evaluated this morning, sitting up at side of the bed back pain from sitting up for so long reporting breathing is improved, hgb baseline was in 8s. discussed could increase her PPI to BID as done in the past for suspected underlying bleeding catheter draining cloudy colored urine, discussed possible UTI contributing to weakness and placement on abx. Got catheter changed at end of last month with home health, may need to exchange sooner. She states she is not sure if she typically gets symptoms with UTIs or not, but temp usually on the lower side but did have elevation to 37.6C last night. Discussed checking renal U/S to ensure no stones/obstruction. Does have some back pain as well on the right middle of the back Discussed continued use of incentive spirometer, does have some bibasilar crackles. abd softer and continuing torsemide, but reduced dose to 60mg BID Moved bowels 2 days ago. Review of Systems Review of Systems: All systems reviewed & are unremarkable except as noted in HPI & below Physical Exam Physical Exam: General: WD female sitting up in bed, NAD but reports some shortness of breath, not tachypneic HEENT: head normocephalic, some bruising to L ear, no discharge, mmm, trachea midline, +JVD Resp: lungs diminished in the bases with associated crackles, R>L, end expiratory wheezing, +cough, on room air CV: irregularly irregular, 4/6 systolic murmur w/ radiation to carotids, S1/quiet S2, pitting edema to b/l LE and thighs GI: +BS, +distension (less) +edema (less), +hepatojugular reflex, ?ascites ; chronic wilson draining cloudy yellow urine, mucus around site insertion (cleaned by nursing today) MSK/Neuro: b/l LE weakness from back surgery, stockings in pace, RLE>LLE swelling (decreased), pulses palpable. thoracic region posteriorly slightly tender to palpation on the right, no bruising noted no tenderness to metatarsals on the right, does have ulceration to heel, full thickness, no drainage patient home waffle boots in place Psych: AOx3, pleasant and cooperative, forgetful at times but easily reoriented SKin: scattered ecchymosis, slight hematoma to RUE medially, slightly tender to palpation, pulses palpable Results & Data Results & Data ([facility]) Vital Signs (Past 12 Hours) Vital Signs Temp Pulse Pulse Resp BP Pulse Ox O2 Del Method 12/15/22 07:23 36.4 C L 62 16 132/64 95 Room Air 12/15/22 07:06 54 L 18 94 Room Air 12/15/22 03:20 36.8 C 78 16 134/72 92 Room Air 12/14/22 23:37 37.7 C H 61 18 128/58 L 96 Room Air 12/14/22 22:02 58 L 12/14/22 20:15 Room Air Laboratory Results 12/15/22 12/15/22 12/15/22 Range/Units 11:52 07:50 05:19 WBC (4.8-10.8) K/ul RBC (3.93-5.22) M/uL Hgb (12.0-16.0) g/dl Hct (34.1-44.9) % MCV (80.0-100.0) fL MCH (25.0-34.0) pg MCHC (32.0-36.0) g/dL RDW Std Deviation (36.4-46.3) fL RDW Coeff of Lelo (11.5-14.5) % Plt Count (130-400) K/uL MPV (9.4-12.3) fL PT (9.0-12.0) Seconds INR (0.9-1.1) Sodium (136-145) mmol/L Potassium (3.5-5.1) mmol/L Chloride (98-107) mmol/L Carbon Dioxide (21-32) mmol/L Anion Gap (3-11) BUN (6-23) mg/dl Creatinine (0.6-1.2) mg/dl Est Cr Clr Drug Dosing ml/min Est GFR ( Amer) ml/min Est GFR (Non-Af Amer) ml/min BUN/Creatinine Ratio (10-20) Glucose (70-99(Fasting)) mg/dl POC Glucose 140 H 120 H (70-99) mg/dl Calcium (8.5-10.1) mg/dl Magnesium (1.7-2.4) mg/dl Total Bilirubin (0.2-1.0) mg/dl AST (13-39) U/L ALT (7-52) U/L Alkaline Phosphatase (34-104) U/L Ammonia 57.0 (18-72) umol/L Total Protein (6.0-8.3) gm/dl Albumin (3.4-5.0) gm/dl Globulin (2.5-4.0) gm/dl Albumin/Globulin Ratio (0.9-2) 12/15/22 12/15/22 12/15/22 Range/Units 05:16 05:16 05:16 WBC 7.21 (4.8-10.8) K/ul RBC 2.89 L (3.93-5.22) M/uL Hgb 7.6 L (12.0-16.0) g/dl Hct 24.6 L (34.1-44.9) % MCV 85.1 (80.0-100.0) fL MCH 26.3 (25.0-34.0) pg MCHC 30.9 L (32.0-36.0) g/dL RDW Std Deviation 61.7 H (36.4-46.3) fL RDW Coeff of Lelo 19.9 H (11.5-14.5) % Plt Count 210 (130-400) K/uL MPV 8.6 L (9.4-12.3) fL PT 16.1 H (9.0-12.0) Seconds INR 1.5 H (0.9-1.1) Sodium 130 L (136-145) mmol/L Potassium 4.1 (3.5-5.1) mmol/L Chloride 97 L (98-107) mmol/L Carbon Dioxide 25 (21-32) mmol/L Anion Gap 8 (3-11) BUN 55 H (6-23) mg/dl Creatinine 1.88 H (0.6-1.2) mg/dl Est Cr Clr Drug Dosing 29.8 ml/min Est GFR ( Amer) 29.1 ml/min Est GFR (Non-Af Amer) 25.1 ml/min BUN/Creatinine Ratio 29.3 H (10-20) Glucose 117 H (70-99(Fasting)) mg/dl POC Glucose (70-99) mg/dl Calcium 8.6 (8.5-10.1) mg/dl Magnesium 2.0 (1.7-2.4) mg/dl Total Bilirubin 1.3 H (0.2-1.0) mg/dl AST 22 (13-39) U/L ALT 11 (7-52) U/L Alkaline Phosphatase 72 (34-104) U/L Ammonia (18-72) umol/L Total Protein 6.2 (6.0-8.3) gm/dl Albumin 3.7 (3.4-5.0) gm/dl Globulin 2.5 (2.5-4.0) gm/dl Albumin/Globulin Ratio 1.5 (0.9-2) 12/14/22 12/14/22 Range/Units 20:01 18:32 WBC (4.8-10.8) K/ul RBC (3.93-5.22) M/uL Hgb (12.0-16.0) g/dl Hct (34.1-44.9) % MCV (80.0-100.0) fL MCH (25.0-34.0) pg MCHC (32.0-36.0) g/dL RDW Std Deviation (36.4-46.3) fL RDW Coeff of Lelo (11.5-14.5) % Plt Count (130-400) K/uL MPV (9.4-12.3) fL PT (9.0-12.0) Seconds INR (0.9-1.1) Sodium 131 L (136-145) mmol/L Potassium 3.8 (3.5-5.1) mmol/L Chloride 97 L (98-107) mmol/L Carbon Dioxide 25 (21-32) mmol/L Anion Gap 9 (3-11) BUN 54 H (6-23) mg/dl Creatinine 1.78 H (0.6-1.2) mg/dl Est Cr Clr Drug Dosing 31.5 ml/min Est GFR ( Amer) 31.1 ml/min Est GFR (Non-Af Amer) 26.9 ml/min BUN/Creatinine Ratio 30.3 H (10-20) Glucose 121 H (70-99(Fasting)) mg/dl POC Glucose 139 H (70-99) mg/dl Calcium 8.6 (8.5-10.1) mg/dl Magnesium (1.7-2.4) mg/dl Total Bilirubin (0.2-1.0) mg/dl AST (13-39) U/L ALT (7-52) U/L Alkaline Phosphatase (34-104) U/L Ammonia (18-72) umol/L Total Protein (6.0-8.3) gm/dl Albumin (3.4-5.0) gm/dl Globulin (2.5-4.0) gm/dl Albumin/Globulin Ratio (0.9-2) Diagnostic Findings Chest X-Ray 12/15/22 06:00 XR chest 1V portable CLINICAL HISTORY: follow up opacity TECHNIQUE: Single frontal radiograph of the chest was obtained. Comparison: Comparison is made to chest radiograph 12/14/2022 FINDINGS: Median sternotomy wires are unchanged. Cardiomegaly is noted. The aortic arch is calcified. Left basilar opacity is less evident on today's exam. There is blunting of the left costophrenic angle. IMPRESSION: 1. Cardiomegaly is noted. Left basilar opacity is less evident on today's exam. 2. Left costophrenic angle blunting which may represent trace pleural effusion versus scarring. ACT 112: Negative or not required by law. Electronically signed by: Akhil Juárez M.D. 12/15/2022 9:39 AM Renal Ultrasound 12/15/22 09:55 US renal/blad retro comp CLINICAL HISTORY: UTI, fall/weakness, r/o pyelo TECHNIQUE: Multiple sonographic real-time images of the kidneys and bladder were obtained. COMPARISON: Comparison is made to renal ultrasound 07/03/2022 FINDINGS: Exam is limited by sonographic window The right kidney measures 9.6 cm in length, and the left kidney measures 9.2 cm in length. The right kidney is normal in size, contour, cortical thickness, and echogenicity. No hydronephrosis is identified. No renal lesion is identified. No perinephric fluid collection is seen. The left kidney is normal in size, contour, cortical thickness and echogenicity. No hydronephrosis is identified. No renal lesion is identified. No perinephric fluid collection is seen. A suprapubic catheter is noted in an underdistended bladder. Ascites is noted. The spleen measures 14 cm. IMPRESSION: 1. Limited exam. No hydronephrosis. Ultrasound is not a sensitive modality for pyelonephritis. 2. Moderate ascites, new from prior exam. Suprapubic catheter is noted. ACT 112: Negative or not required by law. Electronically signed by: Akhil Juárez M.D. 12/15/2022 1:13 PM PG Care Time/CCT Total # of Minutes Spent Total Time Spent with Patient: Total time spent is greater than 50% in coordination of care (as documented) at patient's floor/unit and/or counseling patient: Coding Level of Care Code 52172 SUB INP/OBS CARE 3/50MIN Diagnoses Fall W19.XXXA Acute exacerbation of CHF (congestive heart failure) I50.9 Heart failure type: unspecified Chronic right-sided congestive heart failure I50.812 Anemia D64.9 Anemia type: unspecified type Atrial fibrillation I48.20 Atrial fibrillation type: unspecified chronic CAD (coronary artery disease) I25.10 Associated angina: without angina Coronary Disease-Associated Artery/Lesion type: [place] artery [place] vs. transplanted heart: [place] heart Swelling of both lower extremities M79.89 Elevated troponin R77.8 Chronic kidney disease, stage 3 N18.30 Chronic kidney disease stage 3 subtype: unspecified whether 3a or 3b Sleep apnea G47.30 Hyperlipidemia E78.5 Type 2 diabetes mellitus with kidney complication, with long-term current use of insulin E11.29; Z79.4 Hypertension I10 Hypertension type: unspecified Ulcer of right heel L97.419 (1) Acute exacerbation of CHF (congestive heart failure) Heart failure type: unspecified Qualified Code(s): I50.9 - Heart failure, unspecified (2) Chronic kidney disease, stage 3 Chronic kidney disease stage 3 subtype: unspecified whether 3a or 3b Qualified Code(s): N18.30 - Chronic kidney disease, stage 3 unspecified (3) CAD (coronary artery disease) Associated angina: without angina Coronary Disease-Associated Artery/Lesion type: [place] artery [place] vs. transplanted heart: [place] heart Qualified Code(s): I25.10 - Atherosclerotic heart disease of [place] coronary artery without angina pectoris (4) Anemia Anemia type: unspecified type Qualified Code(s): D64.9 - Anemia, unspecified (5) Atrial fibrillation Atrial fibrillation type: unspecified chronic Qualified Code(s): I48.20 - Chronic atrial fibrillation, unspecified (6) Hypertension Hypertension type: unspecified Qualified Code(s): I10 - Essential (primary) hypertension
[2022-12-15] MEDS: TORSEMIDE 10 MG TAB PO SCH (09:00)
[2022-12-15] MEDS ORDERED: LIDOCAINE 5% 1 PATCH TD SCH (09:00)
--- NOTE | 2022-12-15 09:41 | XRay Report ---
XR chest 1V portable CLINICAL HISTORY: follow up opacity TECHNIQUE: Single frontal radiograph of the chest was obtained. Comparison: Comparison is made to chest radiograph 12/14/2022 FINDINGS: Median sternotomy wires are unchanged. Cardiomegaly is noted. The aortic arch is calcified. Left basi lar opacity is less evident on today's exam. There is blunting of the left costophrenic angle. IMPRESSION: 1. Cardiomegaly is noted. Left basilar opacity is less evident on today's exam. 2. Left costophrenic angle blunting which may represent trace pleural effusion versus scarring. ACT 112: Negative or not required by law. Electronically signed by: Akhil Juárez M.D. 12/15/2022 9:39 AM
[2022-12-15] MEDS: hydrALAZINE TAB 50 MG TAB PO SCH ×3 (10:28→20:55)
[2022-12-15] MEDS: guaiFENesin 600 MG TABCR PO SCH ×2 (10:29→20:54)
[2022-12-15] MEDS: SPIRONOLACTONE 25 MG TAB PO SCH ×2 (10:29→20:58)
[2022-12-15] MEDS: rOPINIRole HCL 2 MG TABLET PO SCH ×4 (10:29→20:57)
[2022-12-15] MEDS: APIXABAN 5 MG TABLET PO SCH ×2 (10:29→20:54)
[2022-12-15] MEDS: MAGNESIUM CHLORIDE W/CALCIUM 64MG DELAYED REL TAB PO SCH ×3 (10:29→20:56)
[2022-12-15] MEDS: ROSUVASTATIN CALCIUM 20 MG TAB PO SCH (10:30)
[2022-12-15] MEDS: FERROUS SULFATE 325 MG TAB PO SCH (10:30)
[2022-12-15] MEDS: PANTOprazole 40 MG TAB PO SCH ×2 (10:30→20:56)
[2022-12-15] MEDS: cefTRIAXone SODIUM 2,000 MG in DEXTROSE 5% 50 ML IV SCH (10:31)
[2022-12-15] MEDS: allopurinoL 100 MG TAB PO SCH (10:31)
[2022-12-15] MEDS: LIDOCAINE 5% 1 PATCH TD SCH (10:31)
[2022-12-15] MEDS: METOPROLOL SUCC 50MG EXT REL TAB PO SCH (10:31)
[2022-12-15] MEDS: LANTUS PER UNIT CHARGE SQ SCH ×2 (10:39→21:08)
[2022-12-15] MEDS: ACETAMINOPHEN 500 MG TAB PO PRN ×2 (10:39→21:08)
[2022-12-15] MEDS: INSULIN ASPART PER UNIT SC SCH ×4 (10:40→21:08)
--- NOTE | 2022-12-15 13:14 | Ultrasound Report ---
US renal/blad retro comp CLINICAL HISTORY: UTI, fall/weakness, r/o pyelo TECHNIQUE: Multiple sonographic real-time images of the kidneys and bladder were obtained. COMPARISON: Comparison is made to renal ultrasound 07/03/2022 FINDINGS: Exam is limited by sonographic window The right kidney measures 9.6 cm in length, and the left kidney measures 9.2 cm in length. The right kidney is normal in size, contour, cortical thickness, and echogenicity. No hydronephrosis is identified. No renal lesion is identified. No perinephric fluid collection is seen. The left kidney is normal in size, contour, cortical thickness and echogenicity. No hydronephrosis i s identified. No renal lesion is identified. No perinephric fluid collection is seen. A suprapubic catheter is noted in an underdistended bladder. Ascites is noted. The spleen measures 14 cm. IMPRESSION: 1. Limited exam. No hydronephrosis. Ultrasound is not a sensitive modality for pyelonephritis. 2. Moderate ascites, new from prior exam. Suprapubic catheter is noted. ACT 112: Negative or not required by law. Electronically signed by: Akhil Juárez M.D. 12/15/2022 1:13 PM
[2022-12-15] MEDS ORDERED: TORSEMIDE 20 MG TAB PO SCH ×3 (17:00→21:00)
[2022-12-15] MEDS: AMITRIPTYLINE HCL 50 MG TAB PO SCH (20:54)
[2022-12-16 05:50] LABS: Basophils # (auto) 0.05 K/uL (0-0.2); Basophils % (auto) 0.7 %; Eosinophils # (auto) 0.11 K/uL (0-0.50); Eosinophils % (auto) 1.5 %; Hemoglobin 7.3 g/dl (12.0-16.0); Immature Granulocytes # (auto) 0.03 K/uL (0.00-0.02); Immature Granulocytes % (auto) 0.4 %; Lymphocytes # (auto) 0.53 K/uL (1.2-3.4); Lymphocytes % (auto) 7.4 %; Mean Corpuscular Hemoglobin 25.9 pg (25.0-34.0); Mean Corpuscular Hgb Conc 30.4 g/dL (32.0-36.0); Mean Corpuscular Volume 85.1 fL (80.0-100.0); Mean Platelet Volume 8.4 fL (9.4-12.3); Monocytes # (auto) 0.68 K/uL (0.24-0.82); Monocytes % (auto) 9.4 %; Neutrophils % (auto) 80.6 %; Platelet Count 208 K/uL (130-400); RDW Standard Deviation 62.4 fL (36.4-46.3); Red Blood Count 2.82 M/uL (3.93-5.22)
[2022-12-16 06:06] LABS: INR 1.8 (0.9-1.1); Prothrombin Time 18.4 Seconds (9.0-12.0)
[2022-12-16 06:23] LABS: Albumin Globulin Ratio 1.4 (0.9-2); Albumin Level 3.6 gm/dl (3.4-5.0); BUN Creatinine Ratio 31.8 (10-20); Bilirubin,Total 0.9 mg/dl (0.2-1.0); Calcium 8.6 mg/dl (8.5-10.1); Creatinine Clr Calc Pharmacy 28.8 ml/min; Est GFR (African American) 27.9 ml/min; Globulin 2.6 gm/dl (2.5-4.0); Potassium 3.9 mmol/L (3.5-5.1); Total Protein 6.2 gm/dl (6.0-8.3)
[2022-12-16 06:29] LABS: Hypochromasia Present; Ovalocytes 1+
[2022-12-16 06:32] LABS: Lyme Ab IgG w/WB Rflx Negative (Negative); Lyme Ab IgM w/WB Rflx Negative (Negative)
[2022-12-16] MEDS: ALBUT/IPRATROP 3MG/0.5MG NEB 3 ML VIAL NEB SCH ×4 (07:01→19:30)
--- NOTE | 2022-12-16 07:46 | Hospitalist Progress Note ---
Date of Service December 16, 2022 Assessment & Plan (1) Acute exacerbation of CHF (congestive heart failure): Plan: Patient presented after a fall (multiple falls at home, on eliquis). CT head negative on admit, other imaging negative for trauma (does have subacute R m etatarsal fx R foot though on imaging obtained after admit) RIGHT SIDED HEART FAILURE in patient w/ Hx CAD s/p CABG, afib on Eliquis (follows w/ Dr Hernandez/Carrie) BNP elevation, higher than last admission Lasix 60mg IV on admit, then 80mg IV BID (on 120/80 [employer])--> was changed to torsemide given abdominal edema/ascites, did have decent diuresis initially, however then slowed and intravascularly depleted and holding further torsemide/spironolactone ECHO unchanged from prior, EF 50-55%, borderline global hypokinesis of left ventricle (consider outpt R heart cath) Continued compliance w/ CPAP recommended Nephrology consulted for assitance w/ volume management Agreed to further hold diuretics and recs for paracentesis (will need albumin) Holding eliquis, discussed with Dr Bonner and they will put her on schedule for tomorrow Has followed with Dr Haywood in the past for c-scope/CT colography, unclear if ever had EGD done. Doesn't have low plt, ?if from R sided HF Continued Monitor weights/I&O, CHF clnic f/u (2) Fall: Plan: mechanical falls 2nd LE weakness from prior back surgery/partial paraplegia, volume overload, CHF, anemia, possible UTI CT head negative, trauma imaging neg subacute metatarsal fx R foot, non-weight bearing, PT/OT consultations, ortho consulted wound RN consulted for R heel wound UA - possible UTI in patient w/ chronic suprapubic catheter 2nd to neurogenic bladder --> placed on ceftriaxone IV (day 2), repeat cx pending and urine looking clearer in bag/tubing Dopplers NEGATIVE for DVT R foot heel wound/ulcer and fracture -- xray w/ subacute fx distal 5th metatarsal, ortho consulted. 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 Check albumin w/ AM paracentesis labs to verify etiology (4) Anemia: Plan: 2nd to CKD/chronic illness. no bleeding reported TSH wnl, checked given unclear cause for anemia EPO 12/14, to continue weekly retacrit w/ [place] hgb improved on repeat, around baseline and given dose of Venofer IV as well, can repeat in AM (Iron 15, TIBC 150, transferrin 102, unsat IBC 135 and trans % sat 10) On PO iron [employer] as well Of note, hx neuroendocrine tumor s/p resection w/ Dr Perkins. Has had elevation in chromogranin A level ? since this time PET scan ordered by Dr Michelle but follows w/ Dr Conrad currently Check peripheral smear for further eval but rec continued eval after discharge for underlying anemia cause monitor CBC in AM (5) Catheter-associated urinary tract infection: Plan: suspected, hx neurogenic bladder 2nd to back/paraplegia catheter w/ cloudy urine/fall Renal US checked to r/o obstruction given crystals on UA placed on ceftriaxone monitor repeat urine cx (6) Ulcer of right heel: Plan: wound rn consult xray w/ subacute fx ortho consulted -- no treatment boots (has in room), keep pressure off heal PT/OT consulted (7) Atrial fibrillation: Plan: Rate controlled, continues on metoprolol Eliquis 5mg BID -- despite high risk w/ falls, is not very ambulatory at baseline and rec continuing AC Keep mag ~2, K~4 (8) CAD (coronary artery disease): Plan: No CP reported, trops minor elevation, 2nd to CHF/anemia as above EKG w/ CP Monitor on tele (9) Swelling of both lower extremities: Plan: Doppler negative for RLE, on eliquis and denies missing any doses Diuretics as outlined above, CHF clinic consulted (10) Elevated troponin: Plan: Likely demand from CHF exacerbation/anemia ECHO limited ordered as above, consider having cards arrange for outpatient R heart cath (11) Chronic kidney disease, stage 3: Plan: Renal dose meds/avoid nephrotoxic agents as able Cr improved initially w/ diuretics, now elevated but not above her baseline renal dose meds/avoid nephrotoxic agents as able nephro consulted for additional assistance w/ diuretics given CKD/cirrhosis as well Cr stable compared to baseline (12) Sleep apnea: Plan: Continue to stress the importance of compliance HS CPAP ordered, patient states she will use it during the admission -- did wear last night, continued compliance stressed (13) Hyperlipidemia: Plan: Continue statin (14) Type 2 diabetes mellitus with kidney complication, with long-term current use of insulin: Plan: Last A1c 5.6 Monitor BSG ACHS, goal range is 110-140 Lantus 5u BID, CRF 40, CR 13 BSGs acceptable, continue to monitor (15) Hypertension: Plan: Stable Continue metoprolol, hydralazine Holding further diuretics BP stable (16) Hyponatremia: Plan: initially improved w/ diuretics, now overdiuresis no lightheaded/dizziness reported monitor on repeat, consider checking urine studies of note, multiple admits ago patient was on NaCL tablets. Would verify w/ in AM she no longer has those at home Plan continued inpatient stay, paracentesis in AM Admission and Anticipated Discharge Date Admission Date: December 15, 2022 Supervising Physician Co-Signing Physician Notes PA Supervision Note: I did not personally see or examine the patient today, but I verified all jimenez points of THERESA Pisano's assessment and plan with the following exceptions/additions: None Subjective eval this morning, states breathing is difficult at times/shortness of breath +cough, but no sputum production passing gas/no BM, abdomen is softer but discussed with patient/Dr Cordoba about US paracentesis to pull off some fluid and if able to get decent amount, use albumin following. Holding further torsemide, will place spironolactone on hold as intravascularly depleted Did wear CPAP on/off last night until around 2-3am and then not further. Continued compliance encouraged. Patient Na low, denies any lightheaded/dizziness. No fevers/chills, or chest pain reported. Friend at bedside for support. Questions/concerns addressed at this time. Review of Systems Review of Systems: All systems reviewed & are unremarkable except as noted in HPI & below Physical Exam Physical Exam: General: WD obese female, NAD but reports some shortness of breath, not tachypneic, laying almost flat in bed HEENT: head normocephalic, some bruising to L ear, no discharge, mmm, trachea midline, +JVD Resp: lungs diminished in the bases with associated crackles, R>L, end expiratory wheezing, +cough, on room air CV: irregularly irregular, 4/6 systolic murmur w/ radiation to carotids, S1/quiet S2, pitting edema to b/l LE and thighs GI: +BS, +distension (less) +edema (less but still moderate ascites), +hepatojugular reflex ; chronic wilson draining clearer yellow urine MSK/Neuro: b/l LE weakness from back surgery, stockings in pace, RLE>LLE swelling (decreased), pulses palpable. thoracic region posteriorly slightly tender to palpation on the right, no bruising noted no tenderness to metatarsals on the right, does have ulceration to heel, full thickness, no drainage patient home waffle boots in place Psych: AOx3, pleasant and cooperative, forgetful at times but easily reoriented SKin: scattered ecchymosis, slight hematoma to RUE medially, slightly tender to palpation, pulses palpable Results & Data Results & Data ([facility]) Vital Signs (Past 12 Hours) Vital Signs Temp Pulse Pulse Resp BP BP Pulse Ox 12/16/22 07:02 71 16 96 12/16/22 06:15 36.8 C 70 18 131/60 94 12/16/22 02:46 36.6 C 57 L 18 133/80 94 12/15/22 22:00 57 L 12/15/22 22:28 59 L 17 93 12/15/22 22:22 36.9 C 60 18 121/56 L 93 12/15/22 20:08 60 18 96 O2 Del Method O2 Flow Rate FiO2 12/16/22 07:02 Room Air 12/16/22 06:15 Room Air 12/16/22 02:46 CPAP 2 12/15/22 22:00 12/15/22 22:28 21 12/15/22 22:22 CPAP 3 12/15/22 20:08 Nasal Cannula 2 Laboratory Results 12/16/22 12/16/22 12/16/22 Range/Units 07:27 05:15 05:15 WBC 7.20 (4.8-10.8) K/ul RBC 2.82 L (3.93-5.22) M/uL Hgb 7.3 L (12.0-16.0) g/dl Hct 24.0 L (34.1-44.9) % MCV 85.1 (80.0-100.0) fL MCH 25.9 (25.0-34.0) pg MCHC 30.4 L (32.0-36.0) g/dL RDW Std Deviation 62.4 H (36.4-46.3) fL RDW Coeff of Lelo 20.0 H (11.5-14.5) % Plt Count 208 (130-400) K/uL MPV 8.4 L (9.4-12.3) fL Immature Gran % (Auto) 0.4 % Neut % (Auto) 80.6 % Lymph % (Auto) 7.4 % [place] % (Auto) 9.4 % Eos % (Auto) 1.5 % Baso % (Auto) 0.7 % Neut # (Auto) 5.80 (1.4-6.5) K/uL Lymph # (Auto) 0.53 L (1.2-3.4) K/uL [place] # (Auto) 0.68 (0.24-0.82) K/uL Eos # (Auto) 0.11 (0-0.50) K/uL Baso # (Auto) 0.05 (0-0.2) K/uL Immature Gran # (Auto) 0.03 H (0.00-0.02) K/uL Hypochromasia Present Ovalocytes 1+ Peripher Smr Path Cons PT (9.0-12.0) Seconds INR (0.9-1.1) Sodium (136-145) mmol/L Potassium (3.5-5.1) mmol/L Chloride (98-107) mmol/L Carbon Dioxide (21-32) mmol/L Anion Gap (3-11) BUN (6-23) mg/dl Creatinine (0.6-1.2) mg/dl Est Cr Clr Drug Dosing ml/min Est GFR ( Amer) ml/min Est GFR (Non-Af Amer) ml/min BUN/Creatinine Ratio (10-20) Glucose (70-99(Fasting)) mg/dl POC Glucose 121 H (70-99) mg/dl Calcium (8.5-10.1) mg/dl Magnesium (1.7-2.4) mg/dl Total Bilirubin (0.2-1.0) mg/dl AST (13-39) U/L ALT (7-52) U/L Alkaline Phosphatase (34-104) U/L Total Protein (6.0-8.3) gm/dl Albumin (3.4-5.0) gm/dl Globulin (2.5-4.0) gm/dl Albumin/Globulin Ratio (0.9-2) Lyme Disease IgG Ab Negative (Negative) Lyme Disease IgM Ab Negative (Negative) 12/16/22 12/16/22 12/15/22 Range/Units 05:15 05:15 20:03 WBC (4.8-10.8) K/ul RBC (3.93-5.22) M/uL Hgb (12.0-16.0) g/dl Hct (34.1-44.9) % MCV (80.0-100.0) fL MCH (25.0-34.0) pg MCHC (32.0-36.0) g/dL RDW Std Deviation (36.4-46.3) fL RDW Coeff of Lelo (11.5-14.5) % Plt Count (130-400) K/uL MPV (9.4-12.3) fL Immature Gran % (Auto) % Neut % (Auto) % Lymph % (Auto) % [place] % (Auto) % Eos % (Auto) % Baso % (Auto) % Neut # (Auto) (1.4-6.5) K/uL Lymph # (Auto) (1.2-3.4) K/uL [place] # (Auto) (0.24-0.82) K/uL Eos # (Auto) (0-0.50) K/uL Baso # (Auto) (0-0.2) K/uL Immature Gran # (Auto) (0.00-0.02) K/uL Hypochromasia Ovalocytes Peripher Smr Path Cons PT 18.4 H (9.0-12.0) Seconds INR 1.8 H (0.9-1.1) Sodium 129 L (136-145) mmol/L Potassium 3.9 (3.5-5.1) mmol/L Chloride 96 L (98-107) mmol/L Carbon Dioxide 25 (21-32) mmol/L Anion Gap 8 (3-11) BUN 62 H (6-23) mg/dl Creatinine 1.95 H (0.6-1.2) mg/dl Est Cr Clr Drug Dosing 28.8 ml/min Est GFR ( Amer) 27.9 ml/min Est GFR (Non-Af Amer) 24.0 ml/min BUN/Creatinine Ratio 31.8 H (10-20) Glucose 118 H (70-99(Fasting)) mg/dl POC Glucose 170 H (70-99) mg/dl Calcium 8.6 (8.5-10.1) mg/dl Magnesium 2.0 (1.7-2.4) mg/dl Total Bilirubin 0.9 (0.2-1.0) mg/dl AST 27 (13-39) U/L ALT 13 (7-52) U/L Alkaline Phosphatase 68 (34-104) U/L Total Protein 6.2 (6.0-8.3) gm/dl Albumin 3.6 (3.4-5.0) gm/dl Globulin 2.6 (2.5-4.0) gm/dl Albumin/Globulin Ratio 1.4 (0.9-2) Lyme Disease IgG Ab (Negative) Lyme Disease IgM Ab (Negative) 12/15/22 12/15/22 12/15/22 Range/Units 18:00 16:43 11:52 WBC (4.8-10.8) K/ul RBC (3.93-5.22) M/uL Hgb (12.0-16.0) g/dl Hct (34.1-44.9) % MCV (80.0-100.0) fL MCH (25.0-34.0) pg MCHC (32.0-36.0) g/dL RDW Std Deviation (36.4-46.3) fL RDW Coeff of Lelo (11.5-14.5) % Plt Count (130-400) K/uL MPV (9.4-12.3) fL Immature Gran % (Auto) % Neut % (Auto) % Lymph % (Auto) % [place] % (Auto) % Eos % (Auto) % Baso % (Auto) % Neut # (Auto) (1.4-6.5) K/uL Lymph # (Auto) (1.2-3.4) K/uL [place] # (Auto) (0.24-0.82) K/uL Eos # (Auto) (0-0.50) K/uL Baso # (Auto) (0-0.2) K/uL Immature Gran # (Auto) (0.00-0.02) K/uL Hypochromasia Ovalocytes Peripher Smr Path Cons Pending PT (9.0-12.0) Seconds INR (0.9-1.1) Sodium (136-145) mmol/L Potassium (3.5-5.1) mmol/L Chloride (98-107) mmol/L Carbon Dioxide (21-32) mmol/L Anion Gap (3-11) BUN (6-23) mg/dl Creatinine (0.6-1.2) mg/dl Est Cr Clr Drug Dosing ml/min Est GFR ( Amer) ml/min Est GFR (Non-Af Amer) ml/min BUN/Creatinine Ratio (10-20) Glucose (70-99(Fasting)) mg/dl POC Glucose 133 H 140 H (70-99) mg/dl Calcium (8.5-10.1) mg/dl Magnesium (1.7-2.4) mg/dl Total Bilirubin (0.2-1.0) mg/dl AST (13-39) U/L ALT (7-52) U/L Alkaline Phosphatase (34-104) U/L Total Protein (6.0-8.3) gm/dl Albumin (3.4-5.0) gm/dl Globulin (2.5-4.0) gm/dl Albumin/Globulin Ratio (0.9-2) Lyme Disease IgG Ab (Negative) Lyme Disease IgM Ab (Negative) 12/15/22 Range/Units 07:50 WBC (4.8-10.8) K/ul RBC (3.93-5.22) M/uL Hgb (12.0-16.0) g/dl Hct (34.1-44.9) % MCV (80.0-100.0) fL MCH (25.0-34.0) pg MCHC (32.0-36.0) g/dL RDW Std Deviation (36.4-46.3) fL RDW Coeff of Lelo (11.5-14.5) % Plt Count (130-400) K/uL MPV (9.4-12.3) fL Immature Gran % (Auto) % Neut % (Auto) % Lymph % (Auto) % [place] % (Auto) % Eos % (Auto) % Baso % (Auto) % Neut # (Auto) (1.4-6.5) K/uL Lymph # (Auto) (1.2-3.4) K/uL [place] # (Auto) (0.24-0.82) K/uL Eos # (Auto) (0-0.50) K/uL Baso # (Auto) (0-0.2) K/uL Immature Gran # (Auto) (0.00-0.02) K/uL Hypochromasia Ovalocytes Peripher Smr Path Cons PT (9.0-12.0) Seconds INR (0.9-1.1) Sodium (136-145) mmol/L Potassium (3.5-5.1) mmol/L Chloride (98-107) mmol/L Carbon Dioxide (21-32) mmol/L Anion Gap (3-11) BUN (6-23) mg/dl Creatinine (0.6-1.2) mg/dl Est Cr Clr Drug Dosing ml/min Est GFR ( Amer) ml/min Est GFR (Non-Af Amer) ml/min BUN/Creatinine Ratio (10-20) Glucose (70-99(Fasting)) mg/dl POC Glucose 120 H (70-99) mg/dl Calcium (8.5-10.1) mg/dl Magnesium (1.7-2.4) mg/dl Total Bilirubin (0.2-1.0) mg/dl AST (13-39) U/L ALT (7-52) U/L Alkaline Phosphatase (34-104) U/L Total Protein (6.0-8.3) gm/dl Albumin (3.4-5.0) gm/dl Globulin (2.5-4.0) gm/dl Albumin/Globulin Ratio (0.9-2) Lyme Disease IgG Ab (Negative) Lyme Disease IgM Ab (Negative) PG Care Time/CCT Total # of Minutes Spent Total Time Spent with Patient: Total time spent is greater than 50% in coordination of care (as documented) at patient's floor/unit and/or counseling patient: Coding Level of Care Code 18251 SUB INP/OBS CARE 3/50MIN Diagnoses Acute exacerbation of CHF (congestive heart failure) I50.9 Heart failure type: unspecified Fall W19.XXXA Anasarca R60.1 Anemia D64.9 Anemia type: unspecified type Catheter-associated urinary tract infection T83.511A; N39.0 Ulcer of right heel L97.419 Atrial fibrillation I48.20 Atrial fibrillation type: unspecified chronic CAD (coronary artery disease) I25.10 Associated angina: without angina Coronary Disease-Associated Artery/Lesion type: [place] artery [place] vs. transplanted heart: [place] heart Swelling of both lower extremities M79.89 Elevated troponin R77.8 Chronic kidney disease, stage 3 N18.30 Chronic kidney disease stage 3 subtype: unspecified whether 3a or 3b Sleep apnea G47.30 Hyperlipidemia E78.5 Type 2 diabetes mellitus with kidney complication, with long-term current use of insulin E11.29; Z79.4 Hypertension I10 Hypertension type: unspecified Hyponatremia E87.1 (1) Acute exacerbation of CHF (congestive heart failure) Heart failure type: unspecified Qualified Code(s): I50.9 - Heart failure, unspecified (2) Chronic kidney disease, stage 3 Chronic kidney disease stage 3 subtype: unspecified whether 3a or 3b Qu alified Code(s): N18.30 - Chronic kidney disease, stage 3 unspecified (3) CAD (coronary artery disease) Associated angina: without angina Coronary Disease-Associated Artery/Lesion type: [place] artery [place] vs. transplanted heart: [place] heart Qualified Code(s): I25.10 - Atherosclerotic heart disease of [place] coronary artery without angina pectoris (4) Anemia Anemia type: unspecified type Qualified Code(s): D64.9 - Anemia, unspecified (5) Atrial fibrillation Atrial fibrillation type: unspecified chronic Qualified Code(s): I48.20 - Chronic atrial fibrillation, unspecified (6) Hypertension Hypertension type: unspecified Qualified Code(s): I10 - Essential (primary) hypertension
[2022-12-16] MEDS: LIDOCAINE 5% 1 PATCH TD SCH (08:34)
[2022-12-16] MEDS: MAGNESIUM CHLORIDE W/CALCIUM 64MG DELAYED REL TAB PO SCH ×3 (08:35→22:33)
[2022-12-16] MEDS: SPIRONOLACTONE 25 MG TAB PO SCH ×2 (08:35→21:44)
[2022-12-16] MEDS: rOPINIRole HCL 2 MG TABLET PO SCH ×4 (08:35→21:44)
[2022-12-16] MEDS: APIXABAN 5 MG TABLET PO SCH (08:35)
[2022-12-16] MEDS: hydrALAZINE TAB 50 MG TAB PO SCH ×3 (08:35→21:45)
[2022-12-16] MEDS: PANTOprazole 40 MG TAB PO SCH ×2 (08:35→21:45)
[2022-12-16] MEDS: guaiFENesin 600 MG TABCR PO SCH ×2 (08:35→21:46)
[2022-12-16] MEDS: ROSUVASTATIN CALCIUM 20 MG TAB PO SCH (08:35)
[2022-12-16] MEDS: allopurinoL 100 MG TAB PO SCH (08:36)
[2022-12-16] MEDS: FERROUS SULFATE 325 MG TAB PO SCH (08:36)
[2022-12-16] MEDS: METOPROLOL SUCC 50MG EXT REL TAB PO SCH (08:36)
[2022-12-16] MEDS: INSULIN ASPART PER UNIT SC SCH ×4 (08:41→21:44)
[2022-12-16] MEDS: ACETAMINOPHEN 500 MG TAB PO PRN (08:41)
[2022-12-16] MEDS: LANTUS PER UNIT CHARGE SQ SCH ×2 (08:41→21:44)
[2022-12-16] MEDS: cefTRIAXone SODIUM 2,000 MG in DEXTROSE 5% 50 ML IV SCH (09:30)
--- NOTE | 2022-12-16 12:26 | XRay Report ---
SINGLE VIEW CHEST CLINICAL HISTORY: Dyspnea. FINDINGS: An AP, portable, upright chest radiograph is compared to study dated 12/15/2022 and correlat ed with chest CT dated 11/30/2022. The patient is status post midline sternotomy. The heart is enlarg ed noting atherosclerotic calcification of the thoracic aorta. There is pulmonary vascular congestion . Mild bilateral airspace opacities likely represent interstitial edema. Postsurgical change is noted in the right mid lung. No large pleural effusion is identified. There is bibasilar scarring/atelecta sis. No pneumothorax is seen. The skeletal structures are osteopenic. The bony thorax is grossly inta ct. IMPRESSION: 1. Cardiomegaly with evidence of congestive failure. 2. Faint bibasilar opacities likely representing mild pulmonary edema. Correlate clinically for evide nce of a superimposed infectious/inflammatory pneumonitis. Radiographic follow-up to resolution is re commended ACT 112: Negative or not required by law. Electronically signed by: Albert Bonner M.D. 12/16/2022 12:24 PM
--- NOTE | 2022-12-16 13:39 | Nephrology Consultation ---
Date of Consultation December 16, 2022 Assessment & Plan (1) Chronic kidney disease, stage 3: Baseline creatinine 1.6-2.0 mg/dL. Creatinine stable at 1.95 mg/dL. Radha is non-oliguric. BP is normotensive. Hypervolemia improving. She does not have evidence of HRS at this time. Medications are appropriate for kidney function though dose adjustment of Rosuvastatin may be considered. Close prospective monitoring encouraged while treating acute fluid retention. Maintain low sodium diet and fluid restriction. Document strict I/O's. Repeat metabolic profile tomorrow AM. Renal US reviewed. No obstruction noted. Urine notable for WBCs, RBCs, and casts. Culture negative. No clinical evidence of GN or AIN otherwise. (2) Acute exacerbation of CHF (congestive heart failure): Appears to be improving. Torsemide reduced to 80 mg daily this AM. Goal is to encourage daily negative fluid balance ~1 L. This has been managed by cardiology through the CHF clinic as an outpatient and I will defer management at this time. Remains on spironolactone at 25 mg daily. No JAKE/ARB presumably due to kidney dysfunction but this may be revisited in the future. Dietary sodium and fluid restriction. Document strict I/O's. Encourage treatment for JASON. (3) Cirrhosis: MELD 25. 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 Evidence of presumably new ascites. She does appear symptomatic in this regard. Diagnostic and therapeutic paracentesis encouraged. Thankfully not decompensated. Due to medical comorbidities, notably age and weight, likely not transplant candidate. (4) Anemia: Chronic, stable. Managed by hematology as outpatient with Retacrit PRN. Epogen provided 12/14 while inpatient. No signs of active bleeding reported. History of Present Illness Reason for Consultation: ?hepatorenal/cardiorenal, CHF, diuretic management Requesting Physician: Kimmie Villagran MD Attending Physician: Kimmie Villagran MD History of Present Illness Radha Ramires is a 77 year-old female with CKD IIIb A3. Radha is followed in the CKD clinic by Dr. Roman. Baseline creatinine 1.6-2.0 mg/dL. CKD attributed to DKD and hypertension. Random urine PCR 0.5. Medical history notable for DMII, hypertension, morbid obesity, HFpEF, chronic right sided heart failure and pulmonary hypertension, untreated JASON, atrial fibrillation, CAD/PAD, cirrhosis, chronic anemia, history of lung cancer, and a notable history of paraplegia with chronic suprapubic catheter. Following spine surgery, she has been dependent on a motorized wheelchair and is able transition herself too and from her bed or lift chair. I discussed the patient and plan of care with Radha Pisano PA-C this AM. Radha presented to the [facility] ED on 12/13/22 with a chief complaint of increased swelling in the right arm/abdomen and several recent falls. Thankfully, she did not sustain any significant injury associated with these falls. Imaging did reveal a chronic metatarsal facture. Radha has chronic LE wounds followd by wound care. She has a right heel ulcer noted this admission. Radha continues to struggle with persistent dyspnea since admission. Following cardiology consultation, diuretic therapy was switched from furosemide to torsemide. Increased urine output noted. However, Radha mentioned that she continues to have notably increased edema in BL LE. She remains weak. She continues to struggle with persistent orthopnea. She has been diuresing well with Torsemide. Dose recently reduced. Appetite is poor. Radha admits to drinking more fluids. She also describes increasing abdominal distention but no pain or discomfort. She denies any urinary symptoms. No fevers or chills. Allergies Allergy/AdvReac Type Severity Reaction Status Date / Time capsaicin Allergy Unknown SHORTNESS Verified 12/06/22 13:04 OF BREATH diclofenac Allergy Unknown SHORTNESS Verified 12/06/22 13:04 OF BREATH metoclopramide [From Reglan] Allergy Unknown "went Verified 12/06/22 13:04 crazy" NSAIDS (Non-Steroidal Allergy Unknown Unknown/pt Verified 12/06/22 13:04 Anti-Inflamma not sure about this Home Medications Medication Instructions Recorded Confirmed Type acetaminophen 325 mg tablet 650 mg PO UD PRN Pain 08/08/22 12/13/22 History (Tylenol) albuterol sulfate 90 mcg/actuation 1 puff inhalation Q6 PRN Shortness 08/08/22 12/13/22 History aerosol inhaler (Ventolin HFA) Of Breath Or Wheezing apixaban 5 mg tablet (Eliquis) 5 mg PO BID 08/08/22 12/13/22 History ropinirole 5 mg tablet 5 mg PO QID 09/11/22 12/13/22 History cholecalciferol (vitamin D3) 125 2,000 mcg PO QAM 09/18/22 12/13/22 History mcg (5,000 unit) tablet (Vitamin D3) ferrous sulfate 325 mg (65 mg 325 mg PO QAM 09/18/22 12/13/22 History iron) tablet lidocaine 5 % topical patch 1 patch topical UD PRN Pain 09/18/22 12/13/22 History (Lidoderm) magnesium chloride 64 mg 64 mg PO TID 09/18/22 12/13/22 History tablet,extended release pantoprazole 40 mg tablet,delayed 40 mg PO DAILY #90 tabs 09/28/22 12/13/22 Rx release spironolactone 25 mg tablet 25 mg PO BID #30 tabs 10/21/22 12/13/22 Rx furosemide 40 mg tablet (Lasix) 120 mg PO BID #180 tabs 11/01/22 12/13/22 Rx rosuvastatin 40 mg tablet 40 mg PO DAILY #90 tabs 11/06/22 12/13/22 Rx allopurinol 100 mg tablet 100 mg PO QAM #90 tabs 11/07/22 12/13/22 Rx amitriptyline 50 mg tablet 50 mg PO HS #90 tabs 11/07/22 12/13/22 Rx metoprolol succinate 25 mg 50 mg PO QAM #180 tabs 11/07/22 12/13/22 Rx tablet,extended release 24 hr hydralazine 25 mg tablet 50 mg PO TID #90 tabs 11/29/22 12/13/22 Rx insulin aspart U-100 100 unit/mL 5 unit subcut DAILY 12/06/22 12/13/22 History subcutaneous solution insulin detemir U-100 100 unit/mL See Rx Instructions subcut BID 12/06/22 12/13/22 History subcutaneous solution (Levemir U-100 Insulin) Patient History Medical History Aortic stenosis MILD-MOD per 08/2019 echo, but NO SIGNIFICANT STENOSIS noted on 10/12/19 echo. Atrial fibrillation On Eliquis - dx 4-5 yr ago - no hx cardioversion CAD (coronary artery disease) s/p CABG x 2 in 2012. CAD has remained quiescent since then. Follows with Dr. Hernandez, who cleared the patient for lumbar surgery 07/2019. Chronic kidney disease, stage 3 CKD (chronic kidney disease) stage 4, GFR 15-29 ml/min Clostridium difficile infection DX [facility] 12/2018 @ [facility]. Stool NEGATIVE 05/25/19. Diabetes mellitus, type 2 IDDM Diabetic foot ulcer associated with type 2 diabetes mellitus Following with wound clinic [facility]. Dysphagia pt denies Episode of gagging nausea and episodes of gagging/started 2 weeks ago - pt has not notified dr Fatty liver Gout hx Graves disease Hypertension Indwelling Soto catheter present Lumbar spinal stenosis Severe at L4-5. 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 Lung cancer S/P RM lobectomy 2015, follows with Dr. Perkins. 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 Venous stasis ulcer of right lower leg with edema of right lower leg open wound to right leg - draining brownish color / pt reports she has a wound care appointment to eval right leg & foot - pt doesn't know when appointment is Surgical History Fusion of spine lumbar (07/2019) at [facility] --- uneventful surgery/anesthesia and hospitalization, but patient developed subsequent LE paraplegia. 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 History of appendectomy History of bilateral knee replacement History of bronchoscopy History of cardiac cath 2012 [facility] - [place] - NO STENTS/ANGIOPLASTY -- > CABG History of cholecystectomy History of colonoscopy 11/2018 [facility] History of esophagogastroduodenoscopy (EGD) 11/2018 [facility] History of hysterectomy with oophorectomy KEARA with BSO History of lobectomy of lung RML History of ovarian cystectomy History of surgery Right VATS PROCEDURE History of tubal ligation Hx of CABG 2012 - - [place] - 2 VESSELS Family History Daughter Family history of diabetes mellitus Mother Heart disease Hypertension Myocardial infarction Father Hypertension Other Diabetes Denies family history of Ovarian cancer Prostate cancer Crohn's disease Breast cancer Colorectal cancer Ulcerative colitis Social History Smoking Status: Former smoker Tobacco Type: Cigarettes Cigarettes Per Day: 10; Second Hand Exposure: No; Do You Dip or Chew Tobacco: No; Tobacco Cessation Education Requested by Patient: No Hx Alcohol Use: No Hx Substance Use: No Preferred Language: Setswana Communication Ability: Effective Visual Impairment: No Limitations Hearing Ability: Normal Pre Planning Advisor Required: No Beliefs That Will Affect Care: None marital status: Current Living Situation: Spouse and Family Current Living Situation Comment: Live with . current occupational status: retired How many Children do You have: 5 Other Information That Helps Us Care for You: No Feels Safe at Home: Yes Safety Concerns: Feels Safe At This Time Childhood Exposure to Second-Hand Smoke: No Dental Care, Regularly: No Physical Activity Frequency: Does not Exercise Seatbelt Use: always Sunscreen Use: No Assistive Devices: CPAP, Glasses, Hospital Bed, Mechanical Lift and Wheelchair Review of Systems Review of Systems: All systems reviewed & are unremarkable except as noted in HPI & below Physical Exam Constitutional: well developed and + obese; no acute distress Eyes: + anicteric sclerae; no corneal abnormality ENMT: Mouth: no oral mucosal abnormality and oral mucous membranes not dry Neck: normal visual inspection and trachea midline Respiratory: normal respiratory effort Auscultation: lungs clear to auscultation bilaterally and + diminished lung sounds Cardiovascular: Rate/Rhythm: regular rate Heart Sounds: normal S1, normal S2 and + murmur Vessels: + JVD Extremities: + edema (+3-4 pitting extending to thighs) Gastrointestinal (Abdomen): Inspection/Auscultation: + abdomen distended Percussion/Palpation: abdomen soft and + ascites; abdomen nontender, no guarding and abdomen not rigid Musculoskeletal: Extremities: no cyanosis and no clubbing Skin: + turgor decreased; no jaundice Neurologic: Motor/Sensory: no tremor and no asterixis Psychiatric: Orientation: alert and oriented x 3 Results & Data ([facility]) Vital Signs (Past 12 Hours) Vital Signs Temp Pulse Resp BP Pulse Ox O2 Del Method O2 Flow Rate 12/16/22 11:12 76 18 96 Room Air 12/16/22 11:04 36.8 C 90 18 132/65 93 Room Air 12/16/22 07:02 71 16 96 Room Air 12/16/22 06:15 36.8 C 70 18 131/60 94 Room Air 12/16/22 02:46 36.6 C 57 L 18 133/80 94 CPAP 2 Laboratory Results Laboratory Results - last 24 hr 12/15/22 12/15/22 12/15/22 16:43 18:00 20:03 WBC RBC Hgb Hct MCV MCH MCHC RDW Std Deviation RDW Coeff of Lelo Plt Count MPV Immature Gran % (Auto) Neut % (Auto) Lymph % (Auto) [place] % (Auto) Eos % (Auto) Baso % (Auto) Neut # (Auto) Lymph # (Auto) [place] # (Auto) Eos # (Auto) Baso # (Auto) Immature Gran # (Auto) Hypochromasia Ovalocytes Peripher Smr Path Cons Pending PT INR Sodium Potassium Chloride Carbon Dioxide Anion Gap BUN Creatinine Est Cr Clr Drug Dosing Est GFR ( Amer) Est GFR (Non-Af Amer) BUN/Creatinine Ratio Glucose POC Glucose 133 H 170 H Calcium Magnesium Total Bilirubin AST ALT Alkaline Phosphatase Total Protein Albumin Globulin Albumin/Globulin Ratio Lyme Disease IgG Ab Lyme Disease IgM Ab 12/16/22 12/16/22 12/16/22 05:15 05:15 05:15 WBC 7.20 RBC 2.82 L Hgb 7.3 L Hct 24.0 L MCV 85.1 MCH 25.9 MCHC 30.4 L RDW Std Deviation 62.4 H RDW Coeff of Lelo 20.0 H Plt Count 208 MPV 8.4 L Immature Gran % (Auto) 0.4 Neut % (Auto) 80.6 Lymph % (Auto) 7.4 [place] % (Auto) 9.4 Eos % (Auto) 1.5 Baso % (Auto) 0.7 Neut # (Auto) 5.80 Lymph # (Auto) 0.53 L [place] # (Auto) 0.68 Eos # (Auto) 0.11 Baso # (Auto) 0.05 Immature Gran # (Auto) 0.03 H Hypochromasia Present Ovalocytes 1+ Peripher Smr Path Cons PT 18.4 H INR 1.8 H Sodium 129 L Potassium 3.9 Chloride 96 L Carbon Dioxide 25 Anion Gap 8 BUN 62 H Creatinine 1.95 H Est Cr Clr Drug Dosing 28.8 Est GFR ( Amer) 27.9 Est GFR (Non-Af Amer) 24.0 BUN/Creatinine Ratio 31.8 H Glucose 118 H POC Glucose Calcium 8.6 Magnesium 2.0 Total Bilirubin 0.9 AST 27 ALT 13 Alkaline Phosphatase 68 Total Protein 6.2 Albumin 3.6 Globulin 2.6 Albumin/Globulin Ratio 1.4 Lyme Disease IgG Ab Lyme Disease IgM Ab 12/16/22 12/16/22 12/16/22 05:15 07:27 11:43 WBC RBC Hgb Hct MCV MCH MCHC RDW Std Deviation RDW Coeff of Lelo Plt Count MPV Immature Gran % (Auto) Neut % (Auto) Lymph % (Auto) [place] % (Auto) Eos % (Auto) Baso % (Auto) Neut # (Auto) Lymph # (Auto) [place] # (Auto) Eos # (Auto) Baso # (Auto) Immature Gran # (Auto) Hypochromasia Ovalocytes Peripher Smr Path Cons PT INR Sodium Potassium Chloride Carbon Dioxide Anion Gap BUN Creatinine Est Cr Clr Drug Dosing Est GFR ( Amer) Est GFR (Non-Af Amer) BUN/Creatinine Ratio Glucose POC Glucose 121 H 162 H Calcium Magnesium Total Bilirubin AST ALT Alkaline Phosphatase Total Protein Albumin Globulin Albumin/Globulin Ratio Lyme Disease IgG Ab Negative Lyme Disease IgM Ab Negative PG Care Time/CCT Total # of Minutes Spent Total Time Spent with Patient: Total time spent is greater than 50% in coordination of care (as documented) at patient's floor/unit and/or counseling patient: Coding Level of Care Code INP/OBS CONSULT LVL 5, 80 MIN Diagnoses Chronic kidney disease, stage 3 N18.30 Chronic kidney disease stage 3 subtype: unspecified whether 3a or 3b Acute exacerbation of CHF (congestive heart failure) I50.9 Heart failure type: unspecified Cirrhosis K74.60 Anemia D64.9 Anemia type: unspecified type (1) Anemia Anemia type: unspecified type Qualified Code(s): D64.9 - Anemia, unspecified (2) Chronic kidney disease, stage 3 Chronic kidney disease stage 3 subtype: unspecified whether 3a or 3b Qualified Code(s): N18.30 - Chronic kidney disease, stage 3 unspecified (3) Acute exacerbation of CHF (congestive heart failure) Heart failure type: unspecified Qualified Code(s): I50.9 - Heart failure, unspecified
[2022-12-16] MEDS ORDERED: IRON SUCROSE 300 MG in SODIUM CHLORIDE 0.9% 250 ML IV ONE (14:30)
[2022-12-16] MEDS: AMITRIPTYLINE HCL 50 MG TAB PO SCH (21:46)
[2022-12-17 05:49] LABS: Hematocrit (blood only) 23.8 % (34.1-44.9); Hemoglobin 7.3 g/dl (12.0-16.0); Mean Corpuscular Hgb Conc 30.7 g/dL (32.0-36.0); Mean Corpuscular Volume 84.7 fL (80.0-100.0); Mean Platelet Volume 8.6 fL (9.4-12.3); Platelet Count 213 K/uL (130-400); RDW Coefficient of Variation 19.9 % (11.5-14.5); RDW Standard Deviation 61.5 fL (36.4-46.3); Red Blood Count 2.81 M/uL (3.93-5.22); White Blood Count 8.05 K/ul (4.8-10.8)
[2022-12-17 06:09] LABS: Albumin Globulin Ratio 1.5 (0.9-2); Albumin Level 3.8 gm/dl (3.4-5.0); BUN Creatinine Ratio 31.6 (10-20); Bilirubin,Total 0.8 mg/dl (0.2-1.0); Calcium 8.7 mg/dl (8.5-10.1); Creatinine Clr Calc Pharmacy 29.1 ml/min; Est GFR (African American) 28.2 ml/min; Est GFR (Non-African American) 24.3 ml/min; Globulin 2.6 gm/dl (2.5-4.0); INR 1.4 (0.9-1.1); Potassium 3.7 mmol/L (3.5-5.1); Prothrombin Time 15.1 Seconds (9.0-12.0); Total Protein 6.4 gm/dl (6.0-8.3)
[2022-12-17] MEDS: ALBUT/IPRATROP 3MG/0.5MG NEB 3 ML VIAL NEB SCH ×4 (07:00→19:13)
[2022-12-17] MEDS ORDERED: EPOETIN ALFA 40,000 UNITS/ML VIAL SQ STA (07:49)
--- NOTE | 2022-12-17 07:53 | Hospitalist Progress Note ---
Date of Service December 17, 2022 Assessment & Plan (1) Acute exacerbation of CHF (congestive heart failure): Plan: Patient presented after a fall (multiple falls at home, on eliquis). CT head negative on admit, other imaging negative for trauma (does have subacute R m etatarsal fx R foot though on imaging obtained after admit) RIGHT SIDED HEART FAILURE in patient w/ Hx CAD s/p CABG, afib on Eliquis (follows w/ Dr Hernandez/Elvia) Diuretics were on hold and patient more SOB this AM Lasix 40mg IV x 1 today SOB somewhat improved after IV Lasix will restart Torsemide 80 mg tomorrow Nephrology consulted for assistance w/ volume management CHF clinic also following Procrit given today by nephluther Chandra for paracentesis (will need albumin) - IR unable to do the paracentesis today Holding eliquis for paracentesis, hopefully tomorrow Continue to monitor weights/I&O, CHF clinic f/u ECHO unchanged from prior, EF 50-55%, borderline global hypokinesis of left ventricle (consider outpatient R heart cath) Continued compliance w/ CPAP recommended Patient refusing pO2 was 88% while sleeping - had nurse place on 2 L nc (2) Fall: Plan: mechanical falls 2nd LE weakness from prior back surgery/partial paraplegia, volume overload, CHF, anemia, possible UTI CT head negative, trauma imaging neg subacute metatarsal fx R foot, non-weight bearing, PT/OT consultations, ortho consulted wound RN consulted for R heel wound UA - possible UTI in patient w/ chronic suprapubic catheter 2nd to neurogenic bladder --> placed on ceftriaxone IV (day 2), repeat cx pending and urine looking clearer in bag/tubing Dopplers NEGATIVE for DVT R foot heel wound/ulcer and fracture -- xray w/ subacute fx distal 5th metatarsal, ortho consulted. no treatment - wound RN on consult for wound, no drainage/infection but full thickness (prior cx pseudomonas/staph aureus in September) -- if any drainage, would collect sample Physical Therapy reconsulted Per patient and her she was standing at times. She does have a wheelchair and a elsie lift but not always needed. 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) Diuretics as outlined above, planning for paracentesis (hopefully 12/18/22) NO PAIN on exam, no concerns for SBP appears most recent c-scope/egd w/ Dr Haywood in September 2022--> C-scope notes redundant colon, referred for virtual colonoscopy/ct colonography (done in October -- normal, noted cardiomegaly/volume overload, anasarca, multiple stable subcentimeter pulm nodules stable since PET may 2022) Normal Platelets, likely ascites secondary to right heart failure Holding Eliquis, IR unable to do paracentesis today, will Check albumin w/ AM labs for paracentesis labs to verify etiology (4) Anemia: Plan: 2nd to CKD/chronic illness and iron deficiency. no bleeding reported TSH wnl Transferrin sat low at 10% EPO 12/14, to continue weekly retacrit w/ [place] hgb improved on repeat, around baseline and given dose of Venofer IV as well, can repeat in AM (Iron 15, TIBC 150, transferrin 102, unsat IBC 135 and trans % sat 10) On PO iron OYSTERMAN as well Of note, hx neuroendocrine tumor s/p resection w/ Dr Perkins. Has had elevation in chromogranin A level ? since this time PET scan ordered by Dr Michelle but follows w/ Dr Conrad currently Check peripheral smear for further eval but rec continued eval after discharge for underlying anemia cause monitor CBC (5) Catheter-associated urinary tract infection: Plan: suspected, hx neurogenic bladder 2nd to back/paraplegia catheter w/ cloudy urine/fall Renal US checked to r/o obstruction given crystals on UA placed on ceftriaxone monitor repeat urine cx Recommended repeat urine collection- ordered 12/17/22 (6) Ulcer of right heel: Plan: wound rn consult xray w/ subacute fx ortho consulted -- no treatment boots (has in room), keep pressure off heal PT/OT consulted (7) Atrial fibrillation: Plan: Rate controlled, continues on metoprolol Eliquis 5mg BID -- despite high risk w/ falls, is not very ambulatory at baseline and rec continuing AC (on hold for paracentesis) Keep mag ~2, K~4 (8) CAD (coronary artery disease): Plan: No CP reported, trops minor elevation, 2nd to CHF/anemia as above EKG w/ CP Monitor on tele (9) Swelling of both lower extremities: Plan: Doppler negative for RLE, on eliquis and denies missing any doses Diuretics as outlined above, CHF clinic consulted (10) Elevated troponin: Plan: Likely demand from CHF exacerbation/anemia ECHO limited ordered as above (11) Chronic kidney disease, stage 3: Plan: Renal dose meds/avoid nephrotoxic agents as able Cr improved initially w/ diuretics, now elevated but not above her baseline renal dose meds/avoid nephrotoxic agents as able nephro consulted for additional assistance w/ diuretics given CKD/cirrhosis as well Cr stable compared to baseline (12) Sleep apnea: Plan: Continue to stress the importance of compliance HS CPAP ordered, patient states she will use it during the admission Patient pO2 while sleeping today was 88% had nurse apply 2 L nc (13) Hyperlipidemia: Plan: Continue statin (14) Type 2 diabetes mellitus with kidney complication, with long-term current use of insulin: Plan: Last A1c 5.6 Monitor BSG ACHS, goal range is 110-140 Lantus 5u BID, CRF 40, CR 13 BSGs acceptable, continue to monitor (15) Hypertension: Plan: Stable Continue metoprolol, hydralazine Gave IV Lasix 40mg today BP stable (16) Hyponatremia: Plan: initially improved w/ diuretics, now overdiuresis no lightheaded/dizziness reported monitor on repeat, consider checking urine studies of note, multiple admits ago patient was on NaCL tablets. Would verify w/ in AM she no longer has those at home Patient had 40mg IV lasix and this afternoon became confused for a short period - STAT BMP, NH3 and ABG ordered Plan continued inpatient stay, paracentesis in AM Restart Torsemide 80 mg in the AM 12/18/22 Admission and Anticipated Discharge Date Admission Date: December 15, 2022 Supervising Physician Co-Signing Physician Notes PA Supervision Note: I did not personally see or examine the patient today, but I verified all jimenez points of THERESA Blackwood's assessment and plan with the following exceptions/additions: None Subjective Patient is awake in bed and states she thinks her abdomen is less distended, but she thinks she is more short of breath. She denies any chest pain, dizziness. Pt has not been able to work with patient since Saturday and she has not been able to get out of bed since then. The nurse notified me that patient was restless and confused. She had a dose of miralax and shortly after has a small emesis. She states she feels fine right now and is A&O x3 Patient also seems less SOB since having the IV Lasix this AM Review of Systems Review of Systems: All other ROS negative unless stated below or in the HPI Constitutional: + fatigue and + weakness; no fever and no chills Respiratory: no cough, no chest congestion and no dyspnea shortness of breath Cardiovascular: + edema; no chest pain with activity, no lightheadedness, no syncope and no calf pain Gastrointestinal: + constipation; no abdominal pain, no early satiety, no nausea and no vomiting Musculoskeletal: as per Subjective / HPI and + muscle weakness Per patient legs are weak and hard to ambulate, mostly bed ridden or wheel chair Neurologic: + gait abnormality, + falls and + localized weakness; no syncope Physical Exam Constitutional: + obese and + edematous Neck: trachea midline, no thyromegaly Respiratory: + labored breathing; no cough, + not able to speak in complete sentence and no pursed lip breathing Cardiovascular: Heart Sounds: + murmur Gastrointestinal (Abdomen): Inspection/Auscultation: + abdomen distended, normal bowel sounds, + abdominal edema and + significant pannus Percussion/Palpation: abdomen soft; abdomen nontender, no guarding and abdomen not rigid Neurologic: CN's II-XI intact bilaterally and awake; not confused Psychiatric: A+Ox3, euthymic affect Results & Data Results & Data ([facility]) Vital Signs (Past 12 Hours) Vital Signs Temp Pulse Pulse Resp BP BP Pulse Ox 12/17/22 07:50 37.0 C 73 16 149/64 H 93 12/17/22 07:00 74 12/17/22 07:00 80 18 91 12/17/22 02:55 36.9 C 71 18 132/78 92 12/17/22 00:22 72 12/16/22 23:54 36.8 C 73 18 123/66 94 12/16/22 22:46 19 12/16/22 21:56 O2 Del Method FiO2 12/17/22 07:50 Room Air 12/17/22 07:00 12/17/22 07:00 Room Air 12/17/22 02:55 Nasal CPAP 12/17/22 00:22 12/16/22 23:54 Room Air, CPAP 12/16/22 22:46 21 12/16/22 21:56 Room Air, CPAP Laboratory Results Abnormal lab results 12/16/22 12/17/22 12/17/22 Range/Units 20:27 05:28 05:28 RBC 2.81 L (3.93-5.22) M/uL Hgb 7.3 L (12.0-16.0) g/dl Hct 23.8 L (34.1-44.9) % MCHC 30.7 L (32.0-36.0) g/dL RDW Std Deviation 61.5 H (36.4-46.3) fL RDW Coeff of Lelo 19.9 H (11.5-14.5) % MPV 8.6 L (9.4-12.3) fL PT 15.1 H (9.0-12.0) Seconds INR 1.4 H (0.9-1.1) ABG pH (7.35-7.45) ABG pCO2 (35-46) mmHg ABG pO2 (80-95) mmHg Sodium (136-145) mmol/L Chloride (98-107) mmol/L BUN (6-23) mg/dl Creatinine (0.6-1.2) mg/dl BUN/Creatinine Ratio (10-20) Glucose (70-99(Fasting)) mg/dl POC Glucose 141 H (70-99) mg/dl 12/17/22 12/17/22 12/17/22 Range/Units 05:28 07:32 11:49 RBC (3.93-5.22) M/uL Hgb (12.0-16.0) g/dl Hct (34.1-44.9) % MCHC (32.0-36.0) g/dL RDW Std Deviation (36.4-46.3) fL RDW Coeff of Lelo (11.5-14.5) % MPV (9.4-12.3) fL PT (9.0-12.0) Seconds INR (0.9-1.1) ABG pH (7.35-7.45) ABG pCO2 (35-46) mmHg ABG pO2 (80-95) mmHg Sodium 127 L (136-145) mmol/L Chloride 94 L (98-107) mmol/L BUN 61 H (6-23) mg/dl Creatinine 1.93 H (0.6-1.2) mg/dl BUN/Creatinine Ratio 31.6 H (10-20) Glucose 128 H (70-99(Fasting)) mg/dl POC Glucose 149 H 173 H (70-99) mg/dl 12/17/22 12/17/22 12/17/22 Range/Units 15:17 16:16 16:23 RBC (3.93-5.22) M/uL Hgb (12.0-16.0) g/dl Hct (34.1-44.9) % MCHC (32.0-36.0) g/dL RDW Std Deviation (36.4-46.3) fL RDW Coeff of Lelo (11.5-14.5) % MPV (9.4-12.3) fL PT (9.0-12.0) Seconds INR (0.9-1.1) ABG pH 7.46 H (7.35-7.45) ABG pCO2 33 L (35-46) mmHg ABG pO2 62 L (80-95) mmHg Sodium 126 L (136-145) mmol/L Chloride 92 L (98-107) mmol/L BUN 60 H (6-23) mg/dl Creatinine 1.88 H (0.6-1.2) mg/dl BUN/Creatinine Ratio 31.9 H (10-20) Glucose 162 H (70-99(Fasting)) mg/dl POC Glucose 166 H (70-99) mg/dl 12/17/22 Range/Units 16:38 RBC (3.93-5.22) M/uL Hgb (12.0-16.0) g/dl Hct (34.1-44.9) % MCHC (32.0-36.0) g/dL RDW Std Deviation (36.4-46.3) fL RDW Coeff of Lelo (11.5-14.5) % MPV (9.4-12.3) fL PT (9.0-12.0) Seconds INR (0.9-1.1) ABG pH (7.35-7.45) ABG pCO2 (35-46) mmHg ABG pO2 (80-95) mmHg Sodium (136-145) mmol/L Chloride (98-107) mmol/L BUN (6-23) mg/dl Creatinine (0.6-1.2) mg/dl BUN/Creatinine Ratio (10-20) Glucose (70-99(Fasting)) mg/dl POC Glucose 175 H (70-99) mg/dl PG Care Time/CCT Total # of Minutes Spent Total Time Spent with Patient: Total time spent is greater than 50% in coordination of care (as documented) at patient's floor/unit and/or counseling patient: Coding Level of Care Code 73133 SUB INP/OBS CARE 2/35MIN Diagnoses Acute exacerbation of CHF (congestive heart failure) I50.9 Heart failure type: unspecified Fall W19.XXXA Anasarca R60.1 Anemia D64.9 Anemia type: unspecified type Catheter-associated urinary tract infection T83.511A; N39.0 Ulcer of right heel L97.419 Atrial fibrillation I48.20 Atrial fibrillation type: unspecified chronic CAD (coronary artery disease) I25.10 Associated angina: without angina Coronary Disease-Associated Artery/Lesion type: [place] artery [place] vs. transplanted heart: viejas heart Swelling of both lower extremities M79.89 Elevated troponin R77.8 Chronic kidney disease, stage 3 N18.30 Chronic kidney disease stage 3 subtype: unspecified whether 3a or 3b Sleep apnea G47.30 Hyperlipidemia E78.5 Type 2 diabetes mellitus with kidney complication, with long-term current use of insulin E11.29; Z79.4 Hypertension I10 Hypertension type: unspecified Hyponatremia E87.1 (1) Acute exacerbation of CHF (congestive heart failure) Heart failure type: unspecified Qualified Code(s): I50.9 - Heart failure, unspecified (2) Chronic kidney disease, stage 3 Chronic kidney disease stage 3 subtype: unspecified whether 3a or 3b Qualified Code(s): N18.30 - Chronic kidney disease, stage 3 unspecified (3) CAD (coronary artery disease) Associated angina: without angina Coronary Disease-Associated Artery/Lesion type: [place] artery [place] vs. transplanted heart: viejas heart Qualified Code(s): I25.10 - Atherosclerotic heart disease of viejas coronary artery without angina pectoris (4) Anemia Anemia type: unspecified type Qualified Code(s): D64.9 - Anemia, unspecified (5) Atrial fibrillation Atrial fibrillation type: unspecified chronic Qualified Code(s): I48.20 - Chronic atrial fibrillation, unspecified (6) Hypertension Hypertension type: unspecified Qualified Code(s): I10 - Essential (primary) h ypertension
[2022-12-17] MEDS: ROSUVASTATIN CALCIUM 20 MG TAB PO SCH (08:33)
[2022-12-17] MEDS: allopurinoL 100 MG TAB PO SCH (08:33)
[2022-12-17] MEDS: FERROUS SULFATE 325 MG TAB PO SCH (08:33)
[2022-12-17] MEDS: MAGNESIUM CHLORIDE W/CALCIUM 64MG DELAYED REL TAB PO SCH ×3 (08:33→21:51)
[2022-12-17] MEDS: METOPROLOL SUCC 50MG EXT REL TAB PO SCH (08:33)
[2022-12-17] MEDS: PANTOprazole 40 MG TAB PO SCH ×2 (08:34→20:36)
[2022-12-17] MEDS: hydrALAZINE TAB 50 MG TAB PO SCH ×3 (08:34→20:36)
[2022-12-17] MEDS: rOPINIRole HCL 2 MG TABLET PO SCH ×4 (08:34→20:35)
[2022-12-17] MEDS: guaiFENesin 600 MG TABCR PO SCH ×2 (08:34→20:35)
[2022-12-17] MEDS: SPIRONOLACTONE 25 MG TAB PO SCH ×2 (08:35→20:35)
[2022-12-17] MEDS: LIDOCAINE 5% 1 PATCH TD SCH (08:35)
[2022-12-17] MEDS: INSULIN ASPART PER UNIT SC SCH ×4 (08:36→20:34)
[2022-12-17] MEDS: LANTUS PER UNIT CHARGE SQ SCH ×2 (08:41→20:34)
[2022-12-17] MEDS: ACETAMINOPHEN 500 MG TAB PO PRN ×2 (08:42→20:34)
[2022-12-17] MEDS: cefTRIAXone SODIUM 2,000 MG in DEXTROSE 5% 50 ML IV SCH (08:42)
[2022-12-17] MEDS ORDERED: FUROSEMIDE 40 MG/4 ML VIAL IV ONE (10:38)
[2022-12-17] MEDS: POLYETHYLENE (MIRALAX) 17 GM PACK PO SCH (11:57)
[2022-12-17] MEDS: DOCUSATE SODIUM 100 MG CAP PO SCH ×2 (11:57→20:36)
[2022-12-17] MEDS ORDERED: TROLAMINE SALICYLATE 10% CRM 255 APPLN/85 GM TUBE EXT PRN (13:23)
--- NOTE | 2022-12-17 14:04 | Nephrology Progress Note ---
Date of Service December 17, 2022 Assessment & Plan (1) Acute kidney failure: (2) Anasarca: (3) Catheter-associated urinary tract infection: (4) Acute hyperkalemia: (5) Hyponatremia: (6) Acute exacerbation of CHF (congestive heart failure): Plan 77 yoF with CKD IIIb, b/l cr 1.6-2.0 secondary to DKD and HTN, urine PCR 0.5, morbid obesity, HFpEF, chronic right sided heart failure and pulmonary hypertension, untreated JASON, atrial fibrillation, CAD/PAD, cirrhosis, chronic anemia, history of lung cancer, history of paraplegia with chronic suprapubic catheter Admitted on 12/13/22 with increased swelling in the right arm/abdomen and several recent falls. she has been following with heart failure clinic for sided heart failure, recently diuretics switch from furosemide to torsemide and currently on 80 mg daily, has been net negative although she content be volume overloaded. also has history of chronic anemia, has been following with Hematology as an outpatient and has been getting DU. Hemoglobin staying low around 7.3-7.5. Renal function staying relatively stable, sodium has been low around 127-130. Currently on torsemide 80 mg daily, has been net even over last 24 hours. -- Epogen 30690 units x 1 dose today -- fluid restriction to less than 1500 mL per day. -- may need to adjust diuretics to aim for net negative 0.5 to 1L/d. Will follow Admission and Anticipated Discharge Date Admission Date: December 15, 2022 Results & Data ([facility]) Vital Signs (Past 12 Hours) Vital Signs Temp Pulse Pulse Resp BP Pulse Ox O2 Del Method 12/17/22 12:09 36.8 C 102 H 18 167/82 H 97 Nebulizer 12/17/22 11:36 63 26 H 93 Room Air 12/17/22 07:50 37.0 C 73 16 149/64 H 93 Room Air 12/17/22 07:00 74 12/17/22 07:00 80 18 91 Room Air 12/17/22 02:55 36.9 C 71 18 132/78 92 Nasal CPAP PG Care Time/CCT Total # of Minutes Spent Total Time Spent with Patient: Total time spent is greater than 50% in coordination of care (as documented) at patient's floor/unit and/or counseling patient: Coding Level of Care Code 42822 SUB INP/OBS CARE MIN Diagnoses Acute kidney failure N17.9 Anasarca R60.1 Catheter-associated urinary tract infection T83.511A; N39.0 Acute hyperkalemia E87.5 Hyponatremia E87.1 Acute exacerbation of CHF (congestive heart failure) I50.9 Heart failure type: unspecified (1) Acute exacerbation of CHF (congestive heart failure) Heart failure type: unspecified Qualified Code(s): I50.9 - Heart failure, unspecified
[2022-12-17 16:45] LABS: Base Excess ABG 0.3 mEq/L (-9-1.8); HCO3 ABG 24 mmol/L (19-24); Oxygen Saturation ABG 93.8 % (90-95); PCO2 ABG 33 mmHg (35-46); PO2 ABG 62 mmHg (80-95); pH ABG 7.46 (7.35-7.45)
--- NOTE | 2022-12-17 16:49 | Heart Failure Progress Note ---
Date of Service December 17, 2022 Assessment & Plan (1) Swelling of both lower extremities: (2) Chronic kidney disease, stage 3: (3) Sleep apnea: (4) Atrial fibrillation: (5) CAD (coronary artery disease): (6) Obesity: (7) Pulmonary hypertension: (8) Hypertension: (9) (HFpEF) heart failure with preserved ejection fraction: (10) Cirrhosis: (11) Valvular heart disease: Plan 1. Congestive heart failure with right ventricular systolic dysfunction: She is hypervolemic today- consistent with right sided symptoms. She notes worsening dyspnea this am. Lasix 40 mg IV ordered but not given yet at the time of eval. Suspect her anemia is contributing to her DIALLO. BUN elevated but stable. Creatinine consistent with her baseline. She is hyponatremic today. She has not responded well to high doses of Lasix as outpatient. Given her worsening pulmonary symptoms, may need to accept some degree of renal decline to maintain her volume status. Torsemide 40 mg BID currently on hold. Would consider resuming tomorrow if renal function stable and sodium improved. Goal of 1-2 L/day. Continue Spironolactone 25 mg BID. Consider increasing this for right sided symptoms if needed. Continue to monitor potassium. Patient is unable to do daily weights at home which will make her volume management challenging. Continue home PT- may need to consider short term rehab stay for strengthening. Low sodium diet, less than 2,000 mg daily. Strict I&Os. Would resume fluid restriction. 2. Valvular heart disease: /MR/TR. Mild to moderate on most recent echocardiogram, likely done in the setting of hypervolemia. Continue to monitor. Consider repeat study once euvolemic for better assessment. 3. Atrial fibrillation: Asymptomatic. Continue rate control with Metoprolol. Continue anti-coagulation. 4. CAD: No anginal symptoms. Continue medical therapy. 5. JASON: Encourage CPAP compliance. 6. Hypertension: Controlled. Continue current medical therapy. 7. Pulmonary hypertension: Continue diuretics as above. Most recent echo done while hypervolemic. Would consider outpatient study once optimized. 8. Anemia: Long standing. Follows with [facility] for weekly Retacrit. Planning to treat while inpatient. Likely contributing to her dyspnea and diuretic resistance. 9. Hyponatremia: Would resume her fluid restriction and continue monitoring. Nephrology on board. Disposition: Will continue to follow during hospitalization. Recommend close outpatient follow up with the heart failure program. Admission and Anticipated Discharge Date Admission Date: December 15, 2022 Subjective Patient evaluated this am in her room. She was complaining of increasing dyspnea. She was noticing this more at rest and with conversation. Diuretics had been held. She was ordered Lasix 40 mg IV this am by the primary service. Edema consistent with her baseline. She continues to note abdominal distention. Considering paracentesis today but it was not able to be done. She denies chest pain, cough, lightheadedness. She's net negative 2 L for the admission. Weight 242 per bed scale. Physical Exam Physical Exam: Constitutional: Alert, oriented, in no acute distress HEENT: Head is atraumatic and normocephalic. EOMs intact. Sclera anicteric. Face is symmetric. No perioral cyanosis. Mucous membranes moist. Neck: Supple, - JVD. Pulmonary: Normal respiratory effort, bibasilar crackles. Decreased breath sounds throughout. Cardiac: Regular rate and rhythm. Normal S1 and S2, no gallops, no rubs. Grade II systolic murmur. Extremities: 2+ radial pulses bilaterally. 2+ posterior tibialis pulses bilaterally. 2-3+ pitting edema bilaterally. No cyanosis or clubbing. Abdomen: Normal bowel sounds, soft, non-tender, no abdominal mass palpate. Obese. Skin: Normal skin color, turgor, and pigmentation, no rash, no skin lesions. Ecchymosis noted from fall. Neurological: Patient is awake, alert, and oriented. Pleasant and cooperative. Answers questions appropriately. Speech is clear. Results & Data ([facility]) Vital Signs (Past 12 Hours) Vital Signs Temp Pulse Pulse Resp BP Pulse Ox O2 Del Method 12/17/22 15:34 97.3 F L 78 16 152/54 H 100 Room Air 12/17/22 15:14 72 22 96 Room Air 12/17/22 12:09 98.2 F 102 H 18 167/82 H 97 Nebulizer 12/17/22 11:36 63 26 H 93 Room Air 12/17/22 07:50 98.6 F 73 16 149/64 H 93 Room Air 12/17/22 07:00 74 12/17/22 07:00 80 18 91 Room Air PG Care Time/CCT Total # of Minutes Spent Total Time Spent with Patient: Total time spent is greater than 50% in coordination of care (as documented) at patient's floor/unit and/or counseling patient: Coding Level of Care Code 61505 SUB INP/OBS CARE 350MIN Diagnoses Swelling of both lower extremities M79.89 Chronic kidney disease, stage 3 N18.30 Chronic kidney disease stage 3 subtype: unspecified whether 3a or 3b Sleep apnea G47.30 Atrial fibrillation I48.20 Atrial fibrillation type: unspecified chronic CAD (coronary artery disease) I25.10 Coronary Disease-Associated Artery/Lesion type: [place] artery [place] vs. transplanted heart: [place] heart Associated angina: without angina Obesity E66.9 Pulmonary hypertension I27.20 Hypertension I10 Hypertension type: unspecified (HFpEF) heart failure with preserved ejection fraction I50.30 Cirrhosis K74.60 Valvular heart disease I38 (1) Chronic kidney disease, stage 3 Chronic kidney disease stage 3 subtype: unspecified whether 3a or 3b Qualified Code(s): N18.30 - Chronic kidney disease, stage 3 unspecified (2) Atrial fibrillation Atrial fibrillation type: unspecified chronic Qualified Code(s): I48.20 - Chronic atrial fibrillation, unspecified (3) CAD (coronary artery disease) Coronary Disease-Associated Artery/Lesion type: [place] artery [place] vs. transplanted heart: [place] heart Associated angina: without angina Qualified Code(s): I25.10 - Atherosclerotic heart disease of [place] coronary artery without angina pectoris (4) Hypertension Hypertension type: unspecified Qualified Code(s): I10 - Essential (primary) hypertension
[2022-12-17 16:57] LABS: Allen Test Pos (Pos)
[2022-12-17 18:00] LABS: BUN Creatinine Ratio 31.9 (10-20); Calcium 8.8 mg/dl (8.5-10.1); Creatinine Clr Calc Pharmacy 29.9 ml/min; Est GFR (African American) 29.1 ml/min; Est GFR (Non-African American) 25.1 ml/min; Potassium 3.9 mmol/L (3.5-5.1)
[2022-12-17 19:50] LABS: Appearance Urine Turbid (Clear); Bacteria Urine Automated 4+ (Negative); Bilirubin Urine Negative (Negative); Blood Urine 1+ (Negative); Color Urine Yellow; Epithelial Cell Urine Auto >30 /lpf (0-5); Glucose Urine UA Negative (Negative); Ketones Urine Negative (Negative); Leukocyte Esterase Urine 3+ (Negative); Nitrite Urine Positive (Negative); Specific Gravity Urine 1.015 (1.000-1.030); Urobilinogen Urine Negative (Negative); WBC Urine Automated >30 /hpf (0-5); pH Urine 7.5 (4.5-7.5)
[2022-12-17 19:51] LABS: Protein Urine 1+ (Negative)
[2022-12-17 20:03] LABS: RBC Urine Automated 0-4 /hpf (0-4)
[2022-12-17] MEDS: AMITRIPTYLINE HCL 50 MG TAB PO SCH (20:37)
[2022-12-18] MEDS ORDERED: LIDOCAINE 4% TOP 50 ML VIAL EXT ONE (00:43)
[2022-12-18] MEDS: ALBUT/IPRATROP 3MG/0.5MG NEB 3 ML VIAL NEB SCH ×4 (05:06→18:56)
[2022-12-18] MEDS: ACETAMINOPHEN 500 MG TAB PO PRN ×2 (05:53→22:32)
[2022-12-18 06:45] LABS: Hematocrit (blood only) 24.7 % (34.1-44.9); Hemoglobin 7.6 g/dl (12.0-16.0); Mean Corpuscular Hemoglobin 26.4 pg (25.0-34.0); Mean Corpuscular Hgb Conc 30.8 g/dL (32.0-36.0); Mean Corpuscular Volume 85.8 fL (80.0-100.0); Mean Platelet Volume 9.1 fL (9.4-12.3); Platelet Count 242 K/uL (130-400); RDW Coefficient of Variation 19.9 % (11.5-14.5); RDW Standard Deviation 62.3 fL (36.4-46.3); Red Blood Count 2.88 M/uL (3.93-5.22); White Blood Count 9.38 K/ul (4.8-10.8)
[2022-12-18 07:31] LABS: Albumin Globulin Ratio 1.5 (0.9-2); Albumin Level 3.8 gm/dl (3.4-5.0); Bilirubin,Total 0.8 mg/dl (0.2-1.0); Calcium 8.8 mg/dl (8.5-10.1); Creatinine Clr Calc Pharmacy 28.2 ml/min; Est GFR (Non-African American) 23.3 ml/min; Globulin 2.6 gm/dl (2.5-4.0); Potassium 3.9 mmol/L (3.5-5.1); Total Protein 6.4 gm/dl (6.0-8.3)
[2022-12-18] MEDS: POLYETHYLENE (MIRALAX) 17 GM PACK PO SCH (08:01)
[2022-12-18] MEDS: guaiFENesin 600 MG TABCR PO SCH ×2 (08:02→22:01)
[2022-12-18] MEDS: ROSUVASTATIN CALCIUM 20 MG TAB PO SCH (08:02)
[2022-12-18] MEDS: DOCUSATE SODIUM 100 MG CAP PO SCH ×2 (08:03→21:59)
[2022-12-18] MEDS: MAGNESIUM CHLORIDE W/CALCIUM 64MG DELAYED REL TAB PO SCH ×3 (08:03→21:58)
[2022-12-18] MEDS: hydrALAZINE TAB 50 MG TAB PO SCH ×3 (08:03→22:01)
[2022-12-18] MEDS: rOPINIRole HCL 2 MG TABLET PO SCH ×4 (08:03→21:55)
[2022-12-18] MEDS: PANTOprazole 40 MG TAB PO SCH ×2 (08:03→22:00)
[2022-12-18] MEDS: SPIRONOLACTONE 25 MG TAB PO SCH ×2 (08:04→21:58)
[2022-12-18] MEDS: allopurinoL 100 MG TAB PO SCH (08:04)
[2022-12-18] MEDS: METOPROLOL SUCC 50MG EXT REL TAB PO SCH (08:04)
--- NOTE | 2022-12-18 08:04 | Hospitalist Progress Note ---
Date of Service December 18, 2022 Assessment & Plan (1) Acute exacerbation of CHF (congestive heart failure): Plan: Patient presented after a fall (multiple falls at home, on eliquis). CT head negative on admit, other imaging negative for trauma (does have subacute R m etatarsal fx R foot though on imaging obtained after admit) RIGHT SIDED HEART FAILURE in patient w/ Hx CAD s/p CABG, afib on Eliquis (follows w/ Dr Hernandez/Elvia) Restarted Tosemide 80 mg Tomorrow will change to 40mg BID and will increase Spironolactone to 50mg BID Continue to closely monitor BMP, daily weights and Is and Os Nephrology consulted for assistance w/ volume management CHF clinic also following Procrit given 12/17/22 by nephro Unable to get paracentesis Restart eliquis today Continue to monitor weights/I&O, CHF clinic f/u ECHO unchanged from prior, EF 50-55%, borderline global hypokinesis of left ventricle (consider outpatient R heart cath) Continued compliance w/ CPAP recommended Patient refusing (2) Fall: Plan: mechanical falls 2nd LE weakness from prior back surgery/partial paraplegia, volume overload, CHF, anemia, possible UTI CT head negative, trauma imaging neg subacute metatarsal fx R foot, non-weight bearing, PT/OT consultations, ortho consulted wound RN consulted for R heel wound UA - possible UTI in patient w/ chronic suprapubic catheter 2nd to neurogenic bladder --> placed on ceftriaxone IV (day 2), repeat cx pending and urine looking clearer in bag/tubing Dopplers NEGATIVE for DVT R foot heel wound/ulcer and fracture -- xray w/ subacute fx distal 5th metatarsal, ortho consulted. no treatment - wound RN on consult for wound, no drainage/infection but full thickness (prior cx pseudomonas/staph aureus in September) -- if any drainage, would collect sample Physical Therapy reconsulted Per patient and her she was standing at times. She does have a wheelchair and a elsie lift but not always needed. 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) Diuretics as outlined above, planning for paracentesis (hopefully 12/18/22) NO PAIN on exam, no concerns for SBP appears most recent c-scope/egd w/ Dr Haywood in September 2022--> C-scope notes redundant colon, referred for virtual colonoscopy/ct colonography (done in October -- normal, noted cardiomegaly/volume overload, anasarca, multiple stable subcentimeter pulm nodules stable since PET may 2022) Normal Platelets, likely ascites secondary to right heart failure unable to get paracentesis not enough abdominal ascites to tap Restarted Eliquis (4) Anemia: Plan: 2nd to CKD/chronic illness and iron deficiency. 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 Has had elevation in chromogranin A level ? since this time PET scan ordered by Dr Michelle but follows w/ Dr Conrad currently Check peripheral smear for further eval but rec continued eval after discharge for underlying anemia cause monitor CBC (5) Catheter-associated urinary tract infection: Plan: suspected, hx neurogenic bladder 2nd to back/paraplegia catheter w/ cloudy urine/fall Renal US checked to r/o obstruction given crystals on UA placed on ceftriaxone monitor repeat urine cx Recommended repeat urine collection- ordered 12/17/22 (6) Atrial fibrillation: Plan: Rate controlled, continues on metoprolol Eliquis 5mg BID -- despite high risk w/ falls, is not very ambulatory at baseline and rec continuing AC (on hold for paracentesis) Keep mag ~2, K~4 (7) CAD (coronary artery disease): Plan: No CP reported, trops minor elevation, 2nd to CHF/anemia as above EKG w/ CP Monitor on tele (8) Swelling of both lower extremities: Plan: Doppler negative for RLE, on eliquis and denies missing any doses Diuretics as outlined above, CHF clinic consulted (9) Elevated troponin: Plan: Likely demand from CHF exacerbation/anemia ECHO limited ordered as above (10) Chronic kidney disease, stage 3: Plan: Renal dose meds/avoid nephrotoxic agents as able Cr improved initially w/ diuretics, now elevated but not above her baseline renal dose meds/avoid nephrotoxic agents as able nephro consulted for additional assistance w/ diuretics given CKD/cirrhosis as well Cr stable compared to baseline Nephrology following (11) Sleep apnea: Plan: Continue to stress the importance of compliance HS CPAP ordered Encouraged use (12) Hyperlipidemia: Plan: Continue statin (13) Type 2 diabetes mellitus with kidney complication, with long-term current use of insulin: Plan: Last A1c 5.6 Monitor BSG ACHS, goal range is 110-140 Lantus 5u BID, CRF 40, CR 13 BSGs acceptable, continue to monitor (14) Hypertension: Plan: Stable Continue metoprolol, hydralazine Gave IV Lasix 40mg today BP stable (15) Hyponatremia: Plan: initially improved w/ diuretics, now overdiuresis no lightheaded/dizziness reported monitor on repeat, consider checking urine studies of note, multiple admits ago patient was on NaCL tablets. Would verify w/ in AM she no longer has those at home Restarted Torsemide 40mg BID and Increased Roberto 50 mg BID (16) Pressure ulcer of right heel, stage 1: Plan: wound rn consult xray w/ subacute fx ortho consulted -- no treatment boots (has in room), keep pressure off heal PT/OT consulted Plan continued inpatient stay [facility] to discharge to [facility] when adequately diuresed Admission and Anticipated Discharge Date Admission Date: December 15, 2022 Subjective Patient is awake in bed. She was taken to U/S and did not have enough fluid to have a paracentesis. She denies any abdominal or chest pain. She was still SOB and needs more diuresis. Review of Systems Review of Systems: All other ROS negative unless stated below or in the HPI Constitutional: + fatigue and + weakness; no fever and no chills Respiratory: no cough, no chest congestion and no dyspnea shortness of breath Cardiovascular: + edema; no chest pain with activity, no lightheadedness, no syncope and no calf pain Gastrointestinal: + constipation; no abdominal pain, no early satiety, no nausea and no vomiting Musculoskeletal: as per Subjective / HPI and + muscle weakness Per patient legs are weak and hard to ambulate, mostly bed ridden or wheel chair Neurologic: + gait abnormality, + falls and + localized weakness; no syncope Physical Exam Constitutional: + obese and + edematous Neck: trachea midline, no thyromegaly Respiratory: + labored breathing; no cough, + not able to speak in complete s entence and no pursed lip breathing Cardiovascular: Heart Sounds: + murmur Gastrointestinal (Abdomen): Inspection/Auscultation: + abdomen distended, normal bowel sounds, + abdominal edema and + significant pannus Percussion/Palpation: abdomen soft; abdomen nontender, no guarding and abdomen not rigid Neurologic: CN's II-XI intact bilaterally and awake; not confused Psychiatric: A+Ox3, euthymic affect Results & Data Results & Data ([facility]) Vital Signs (Past 12 Hours) Vital Signs Temp Pulse Pulse Resp BP BP Pulse Ox 12/18/22 07:41 36.3 C L 77 20 115/63 92 12/18/22 07:24 82 12/18/22 05:06 70 18 92 12/18/22 02:34 36.8 C 80 18 120/71 93 12/18/22 00:10 75 12/17/22 22:59 37.3 C 77 16 138/67 95 12/17/22 22:27 75 26 H 97 12/17/22 20:54 O2 Del Method O2 Flow Rate 12/18/22 07:41 Room Air 12/18/22 07:24 12/18/22 05:06 Room Air 12/18/22 02:34 BiPAP 12/18/22 00:10 12/17/22 22:59 CPAP 12/17/22 22:27 12/17/22 20:54 Room Air, Nasal Cannula, CPAP 2 Laboratory Results Abnormal lab results 12/17/22 12/17/22 12/17/22 Range/Units 11:49 15:17 16:16 RBC (3.93-5.22) M/uL Hgb (12.0-16.0) g/dl Hct (34.1-44.9) % MCHC (32.0-36.0) g/dL RDW Std Deviation (36.4-46.3) fL RDW Coeff of Lelo (11.5-14.5) % MPV (9.4-12.3) fL ABG pH 7.46 H (7.35-7.45) ABG pCO2 33 L (35-46) mmHg ABG pO2 62 L (80-95) mmHg Sodium (136-145) mmol/L Chloride (98-107) mmol/L BUN (6-23) mg/dl Creatinine (0.6-1.2) mg/dl BUN/Creatinine Ratio (10-20) Glucose (70-99(Fasting)) mg/dl POC Glucose 173 H 166 H (70-99) mg/dl Urine Appearance (Clear) Urine Protein (Negative) Urine Blood (Negative) Urine Nitrite (Negative) Ur Leukocyte Esterase (Negative) Urine WBC (Auto) (0-5) /hpf U Epithel Cells (Auto) (0-5) /lpf Urine Bacteria (Auto) (Negative) Urine Yeast (None Prsent) Urine Osmolality (500-800) mOsm/kg 12/17/22 12/17/22 12/17/22 Range/Units 16:23 16:38 19:30 RBC (3.93-5.22) M/uL Hgb (12.0-16.0) g/dl Hct (34.1-44.9) % MCHC (32.0-36.0) g/dL RDW Std Deviation (36.4-46.3) fL RDW Coeff of Lelo (11.5-14.5) % MPV (9.4-12.3) fL ABG pH (7.35-7.45) ABG pCO2 (35-46) mmHg ABG pO2 (80-95) mmHg Sodium 126 L (136-145) mmol/L Chloride 92 L (98-107) mmol/L BUN 60 H (6-23) mg/dl Creatinine 1.88 H (0.6-1.2) mg/dl BUN/Creatinine Ratio 31.9 H (10-20) Glucose 162 H (70-99(Fasting)) mg/dl POC Glucose 175 H (70-99) mg/dl Urine Appearance Turbid A (Clear) Urine Protein 1+ H (Negative) Urine Blood 1+ H (Negative) Urine Nitrite Positive A (Negative) Ur Leukocyte Esterase 3+ H (Negative) Urine WBC (Auto) >30 H (0-5) /hpf U Epithel Cells (Auto) >30 H (0-5) /lpf Urine Bacteria (Auto) 4+ H (Negative) Urine Yeast Present A (None Prsent) Urine Osmolality (500-800) mOsm/kg 12/17/22 12/17/22 12/18/22 Range/Units 19:30 20:20 05:32 RBC 2.88 L (3.93-5.22) M/uL Hgb 7.6 L (12.0-16.0) g/dl Hct 24.7 L (34.1-44.9) % MCHC 30.8 L (32.0-36.0) g/dL RDW Std Deviation 62.3 H (36.4-46.3) fL RDW Coeff of Lelo 19.9 H (11.5-14.5) % MPV 9.1 L (9.4-12.3) fL ABG pH (7.35-7.45) ABG pCO2 (35-46) mmHg ABG pO2 (80-95) mmHg Sodium (136-145) mmol/L Chloride (98-107) mmol/L BUN (6-23) mg/dl Creatinine (0.6-1.2) mg/dl BUN/Creatinine Ratio (10-20) Glucose (70-99(Fasting)) mg/dl POC Glucose 165 H (70-99) mg/dl Urine Appearance (Clear) Urine Protein (Negative) Urine Blood (Negative) Urine Nitrite (Negative) Ur Leukocyte Esterase (Negative) Urine WBC (Auto) (0-5) /hpf U Epithel Cells (Auto) (0-5) /lpf Urine Bacteria (Auto) (Negative) Urine Yeast (None Prsent) Urine Osmolality 324 L (500-800) mOsm/kg 12/18/22 12/18/22 Range/Units 05:32 07:54 RBC (3.93-5.22) M/uL Hgb (12.0-16.0) g/dl Hct (34.1-44.9) % MCHC (32.0-36.0) g/dL RDW Std Deviation (36.4-46.3) fL RDW Coeff of Lelo (11.5-14.5) % MPV (9.4-12.3) fL ABG pH (7.35-7.45) ABG pCO2 (35-46) mmHg ABG pO2 (80-95) mmHg Sodium 126 L (136-145) mmol/L Chloride 92 L (98-107) mmol/L BUN 62 H (6-23) mg/dl Creatinine 2.00 H (0.6-1.2) mg/dl BUN/Creatinine Ratio 31.0 H (10-20) Glucose (70-99(Fasting)) mg/dl POC Glucose 106 H (70-99) mg/dl Urine Appearance (Clear) Urine Protein (Negative) Urine Blood (Negative) Urine Nitrite (Negative) Ur Leukocyte Esterase (Negative) Urine WBC (Auto) (0-5) /hpf U Epithel Cells (Auto) (0-5) /lpf Urine Bacteria (Auto) (Negative) Urine Yeast (None Prsent) Urine Osmolality (500-800) mOsm/kg PG Care Time/CCT Total # of Minutes Spent Total Time Spent with Patient: Total time spent is greater than 50% in coordination of care (as documented) at patient's floor/unit and/or counseling patient: Coding Level of Care Code 18196 SUB INP/OBS CARE 2/35MIN Diagnoses Acute exacerbation of CHF (congestive heart failure) I50.813 Heart failure type: right-sided Fall W19.XXXA Anasarca R60.1 Anemia D64.9 Anemia type: unspecified type Catheter-associated urinary tract infection T83.511A; N39.0 Atrial fibrillation I48.20 Atrial fibrillation type: unspecified chronic CAD (coronary artery disease) I25.10 Associated angina: without angina Coronary Disease-Associated Artery/Lesion type: [place] artery [place] vs. transplanted heart: [place] heart Swelling of both lower extremities M79.89 Elevated troponin R77.8 Chronic kidney disease, stage 3 N18.30 Chronic kidney disease stage 3 subtype: unspecified whether 3a or 3b Sleep apnea G47.30 Hyperlipidemia E78.5 Type 2 diabetes mellitus with kidney complication, with long-term current use of insulin E11.29; Z79.4 Hypertension I10 Hypertension type: unspecified Hyponatremia E87.1 Pressure ulcer of right heel, stage 1 L89.611 (1) Acute exacerbation of CHF (congestive heart failure) Heart failure type: right-sided Qualified Code(s): I50.813 - Acute on chronic right heart failure (2) Chronic kidney disease, stage 3 Chronic kidney disease stage 3 subtype: unspecified whether 3a or 3b Qualified Code(s): N18.30 - Chronic kidney disease, stage 3 unspecified (3) CAD (coronary artery disease) Associated angina: without angina Coronary Disease-Associated Artery/Lesion type: [place] artery [place] vs. transplanted heart: [place] heart Qualified C ode(s): I25.10 - Atherosclerotic heart disease of [place] coronary artery without angina pectoris (4) Anemia Anemia type: unspecified type Qualified Code(s): D64.9 - Anemia, unspecified (5) Atrial fibrillation Atrial fibrillation type: unspecified chronic Qualified Code(s): I48.20 - Chronic atrial fibrillation, unspecified (6) Hypertension Hypertension type: unspecified Qualified Code(s): I10 - Essential (primary) hypertension
[2022-12-18] MEDS: FERROUS SULFATE 325 MG TAB PO SCH (08:05)
[2022-12-18] MEDS: LIDOCAINE 5% 1 PATCH TD SCH (08:05)
[2022-12-18] MEDS ORDERED: TORSEMIDE 10 MG TAB PO SCH (09:00)
[2022-12-18] MEDS: INSULIN ASPART PER UNIT SC SCH ×4 (09:44→22:23)
[2022-12-18] MEDS: LANTUS PER UNIT CHARGE SQ SCH ×2 (09:48→22:22)
[2022-12-18] MEDS: cefTRIAXone SODIUM 2,000 MG in DEXTROSE 5% 50 ML IV SCH (09:49)
--- NOTE | 2022-12-18 10:24 | Ultrasound Report ---
US abdomen ltd ascites HISTORY: 77 years-old Female cirrhosis, ascites, volume overload cirrhosis with fluid overload and r eported ascites COMPARISON: CT abdomen and pelvis 09/21/2022 TECHNIQUE: Multiple real-time sonographic images of the abdomen were obtained assessing grayscale chava earance FINDINGS: A small amount of abdominopelvic ascites was present. No large drainable pockets were present. Theref ore, paracentesis was not conducted. IMPRESSION: Small volume of abdominal ascites. ACT 112: Negative or not required by law. The above report was generated using voice recognition software. It may contain grammatical, syntax o r spelling errors. Electronically signed by: Kendall Dupree M.D. 12/18/2022 10:23 AM
--- NOTE | 2022-12-18 14:23 | Nephrology Progress Note ---
Date of Service December 18, 2022 Assessment & Plan (1) Acute kidney failure: (2) Anasarca: (3) Catheter-associated urinary tract infection: (4) Acute hyperkalemia: (5) Hyponatremia: (6) Acute exacerbation of CHF (congestive heart failure): Plan 77 yoF with CKD IIIb, b/l cr 1.6-2.0 secondary to DKD and HTN, urine PCR 0.5, morbid obesity, HFpEF, chronic right sided heart failure and pulmonary hypertension, untreated JASON, atrial fibrillation, CAD/PAD, cirrhosis, chronic anemia, history of lung cancer, history of paraplegia with chronic suprapubic catheter Admitted on 12/13/22 with increased swelling in the right arm/abdomen and several recent falls. she has been following with heart failure clinic for sided heart failure, recently diuretics switch from furosemide to torsemide and currently on 80 mg daily, has been net negative although she content be volume overloaded. also has history of chronic anemia, has been following with Hematology as an outpatient and has been getting DU. Hemoglobin staying low around 7.3-7.5. Renal function staying relatively stable although there has been some variability in creatinine, sodium has been low around 127. Currently on torsemide 80 mg daily, has been net positive over last 24 hours. -- Epogen 34182 units x 1 dose given yesterday. -- fluid restriction to less than 1500 mL per day. -- recommend changing diuretics to IV with aim for net negative. Will follow Admission and Anticipated Discharge Date Admission Date: December 15, 2022 Peter Garcia was seen and evaluated in her room this morning. She just came back from Radiology were she went for paracentesis however paracentesis was not done as there was no significant ascites. She was getting easily short of breath while talking. Net positive over last 24 hours. Renal function staying relatively stable with some variability in creatinine, sodium staying low. Review of Systems Review of Systems: detailed review of system was otherwise unremarkable except mentioned above. The. Physical Exam Constitutional: + acute distress, + ill appearing and + obese Neck: normal visual inspection Respiratory: normal respiratory effort Auscultation: lungs clear to auscultation bilaterally and + diminished lung sounds Cardiovascular: Rate/Rhythm: regular rate Heart Sounds: normal S1, normal S2 and + murmur Vessels: + JVD Extremities: + edema (+3-4 pitting extending to thighs) Skin: + turgor decreased; no jaundice Neurologic: no focal motor deficits Psychiatric: Orientation: alert and oriented x 3 Results & Data ([facility]) Vital Signs (Past 12 Hours) Vital Signs Temp Pulse Pulse Resp BP BP Pulse Ox 12/18/22 11:31 67 14 125/74 100 12/18/22 11:12 69 20 92 12/18/22 07:41 36.3 C L 77 20 115/63 92 12/18/22 07:24 82 12/18/22 05:06 70 18 92 12/18/22 02:34 36.8 C 80 18 120/71 93 O2 Del Method 12/18/22 11:31 Nebulizer 12/18/22 11:12 Room Air 12/18/22 07:41 Room Air 12/18/22 07:24 12/18/22 05:06 Room Air 12/18/22 02:34 BiPAP PG Care Time/CCT Total # of Minutes Spent Total Time Spent with Patient: Total time spent is greater than 50% in coordination of care (as documented) at patient's floor/unit and/or counseling patient: Coding Level of Care Code 23799 SUB INP/OBS CARE 3/50MIN Diagnoses Acute kidney failure N17.9 Anasarca R60.1 Catheter-associated urinary tract infection T83.511A; N39.0 Acute hyperkalemia E87.5 Hyponatremia E87.1 Acute exacerbation of CHF (congestive heart failure) I50.9 Heart failure type: unspecified (1) Acute exacerbation of CHF (congestive heart failure) Heart failure type: unspecified Qualified Code(s): I50.9 - Heart failure, unspecified
[2022-12-18] MEDS: AMITRIPTYLINE HCL 50 MG TAB PO SCH (22:02)
[2022-12-18] MEDS: APIXABAN 5 MG TABLET PO SCH (22:35)
[2022-12-19 06:21] LABS: Hematocrit (blood only) 24.4 % (34.1-44.9); Hemoglobin 7.5 g/dl (12.0-16.0); Mean Corpuscular Hemoglobin 26.3 pg (25.0-34.0); Mean Corpuscular Hgb Conc 30.7 g/dL (32.0-36.0); Mean Corpuscular Volume 85.6 fL (80.0-100.0); Mean Platelet Volume 8.6 fL (9.4-12.3); Platelet Count 234 K/uL (130-400); RDW Coefficient of Variation 19.8 % (11.5-14.5); RDW Standard Deviation 61.7 fL (36.4-46.3); Red Blood Count 2.85 M/uL (3.93-5.22); White Blood Count 8.01 K/ul (4.8-10.8)
[2022-12-19] MEDS: ALBUT/IPRATROP 3MG/0.5MG NEB 3 ML VIAL NEB SCH ×4 (07:19→19:40)
[2022-12-19 07:57] LABS: Calcium 8.6 mg/dl (8.5-10.1)
[2022-12-19 08:03] LABS: BUN Creatinine Ratio 32.2 (10-20); Est GFR (African American) 25.3 ml/min; Est GFR (Non-African American) 21.9 ml/min
[2022-12-19] MEDS: PANTOprazole 40 MG TAB PO SCH ×2 (08:22→20:54)
[2022-12-19] MEDS: guaiFENesin 600 MG TABCR PO SCH ×2 (08:22→20:55)
[2022-12-19] MEDS: FERROUS SULFATE 325 MG TAB PO SCH (08:22)
[2022-12-19] MEDS: LIDOCAINE 5% 1 PATCH TD SCH (08:22)
[2022-12-19] MEDS: METOPROLOL SUCC 50MG EXT REL TAB PO SCH (08:22)
[2022-12-19] MEDS: APIXABAN 5 MG TABLET PO SCH ×2 (08:22→20:54)
[2022-12-19] MEDS: hydrALAZINE TAB 50 MG TAB PO SCH ×3 (08:22→20:56)
[2022-12-19] MEDS: DOCUSATE SODIUM 100 MG CAP PO SCH ×2 (08:23→20:53)
[2022-12-19] MEDS: rOPINIRole HCL 2 MG TABLET PO SCH ×4 (08:23→20:53)
[2022-12-19] MEDS: allopurinoL 100 MG TAB PO SCH (08:23)
[2022-12-19] MEDS: ROSUVASTATIN CALCIUM 20 MG TAB PO SCH (08:23)
[2022-12-19] MEDS: MAGNESIUM CHLORIDE W/CALCIUM 64MG DELAYED REL TAB PO SCH ×3 (08:23→20:54)
[2022-12-19] MEDS: SPIRONOLACTONE 25 MG TAB PO SCH (08:23)
[2022-12-19] MEDS: POLYETHYLENE (MIRALAX) 17 GM PACK PO SCH (08:24)
[2022-12-19] MEDS: INSULIN ASPART PER UNIT SC SCH ×4 (08:34→21:00)
[2022-12-19] MEDS: LANTUS PER UNIT CHARGE SQ SCH ×2 (08:34→20:59)
[2022-12-19] MEDS: ACETAMINOPHEN 500 MG TAB PO PRN ×2 (08:34→17:40)
[2022-12-19] MEDS: cefTRIAXone SODIUM 2,000 MG in DEXTROSE 5% 50 ML IV SCH (08:34)
--- NOTE | 2022-12-19 08:42 | Hospitalist Progress Note ---
Date of Service December 19, 2022 Assessment & Plan (1) Acute exacerbation of CHF (congestive heart failure): Plan: Patient presented after a fall (multiple falls at home, on eliquis). CT head negative on admit, other imaging negative for trauma (does have subacute R m etatarsal fx R foot though on imaging obtained after admit) RIGHT SIDED HEART FAILURE in patient w/ Hx CAD s/p CABG, afib on Eliquis (follows w/ Dr Hernandez/Elvia) Patient was on Torsemide 40mg BID and Spironolactone 50mg BID But was still net + with significant SOB Nephrology recommending IV Diuretics for a few days until adequately diuresed. Had AM Torsemide and spironolactone, will give IV Lasix 40mg this afternoon and then in the AM Repeat electrolytes in the AM Nephrology consulted for assistance w/ volume management CHF clinic also following Procrit given 12/17/22 by nephro Unable to get paracentesis more Anasarca than Ascites Restart eliquis 12/18/22 Continue to monitor weights/I&O, CHF clinic f/u Nephrology recommending 0.5 to 1 Liter net negative ECHO unchanged from prior, EF 50-55%, borderline global hypokinesis of left ventricle (consider outpatient R heart cath) Continued compliance w/ CPAP recommended Patient tells me she is using at night (2) Fall: Plan: mechanical falls 2nd LE weakness from prior back surgery/partial paraplegia, volume overload, CHF, anemia, possible UTI CT head negative, trauma imaging neg subacute metatarsal fx R foot, non-weight bearing, PT/OT consultations, ortho consulted wound RN consulted for R heel wound UA - possible UTI in patient w/ chronic suprapubic catheter 2nd to neurogenic bladder --> placed on ceftriaxone IV (day 2), repeat cx pending and urine looking clearer in bag/tubing Dopplers NEGATIVE for DVT R foot heel wound/ulcer and fracture DM foot ulcer stage I -- xray w/ subacute fx distal 5th metatarsal, ortho consulted. no treatment - wound RN on consult for wound, no drainage/infection but full thickness (prior cx pseudomonas/staph aureus in September) -- if any drainage, would collect sample Physical Therapy reconsulted Per patient and her she was standing at times. She does have a wheelchair and a elsie lift but not always needed. 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 no bleeding reported TSH wnl Transferrin sat low at 10% EPO 12/14, to continue weekly retacrit w/ [place] hgb improved on repeat, around baseline and given dose of Venofer IV as well, can repeat in AM (Iron 15, TIBC 150, transferrin 102, unsat IBC 135 and trans % sat 10) On PO iron [employer] as well monitor CBC (5) Catheter-associated urinary tract infection: Plan: suspected, hx neurogenic bladder 2nd to back/paraplegia catheter w/ cloudy urine/fall Renal US checked to r/o obstruction given crystals on UA Continues on ceftriaxone Recommended repeat urine collection- ordered 12/17/22 No culture sent (6) Atrial fibrillation: Plan: Rate controlled, continues on metoprolol Eliquis 5mg BID -- despite high risk w/ falls, is not very ambulatory at baseline and rec continuing AC Keep mag ~2, K~4 (7) CAD (coronary artery disease): Plan: No CP reported, trops minor elevation, 2nd to CHF/anemia as above EKG w/ CP Monitor on tele (8) Swelling of both lower extremities: Plan: Doppler negative for RLE, on eliquis and denies missing any doses Diuretics as outlined above, CHF clinic consulted Continue therapy and encourage movement (9) Elevated troponin: Plan: Likely demand from CHF exacerbation/anemia ECHO limited ordered as above (10) Chronic kidney disease, stage 3: Plan: Renal dose meds/avoid nephrotoxic agents as able Cr improved initially w/ diuretics, now elevated but not above her baseline renal dose meds/avoid nephrotoxic agents as able nephro consulted for additional assistance w/ diuretics given CKD/cirrhosis as well Cr stable compared to baseline Nephrology following (11) Sleep apnea: Plan: Continue to stress the importance of compliance HS CPAP ordered Encouraged use (12) Hyperlipidemia: Plan: Continue statin (13) Type 2 diabetes mellitus with kidney complication, with long-term current use of insulin: Plan: Last A1c 5.6 Monitor BSG ACHS, goal range is 110-140 Lantus 5u BID, CRF 40, CR 13 BSGs acceptable, continue to monitor (14) Hypertension: Plan: Stable Continue metoprolol, hydralazine Gave IV Lasix 40mg today BP stable (15) Hyponatremia: Plan: no lightheaded/dizziness reported Started sodium chloride 2gm x 1 today and then 1gm BID Normal salt in diet continue 1500 fluid restriction Nephrology recommending IV diuretics until can achieved a net loss of 0.5 to 1 Liter daily (16) Pressure ulcer of right heel, stage 1: Plan: wound rn consult xray w/ subacute fx ortho consulted -- no treatment boots on to keep pressure off heal PT/OT consulted (17) Constipation: Plan: No BM x 5 days, no abdominal pain, nausea or vomiting Continue miralax daily Add Dulcolax suppository today Plan continued inpatient stay [facility] to discharge to [facility] when adequately diuresed Admission and Anticipated Discharge Date Admission Date: December 15, 2022 Subjective Patient is awake laying in bed and states she feels about the same, she does seem a bit less SOB today compared to yesterday to my exam. patient states she talked to her daughter today over the phone and her daughter thought she sounded less SOB. She denies any abdominal pain, chest pain, nausea or vomiting. She has not had a BM in 4 days. Review of Systems Review of Systems: All other ROS negative unless stated below or in the HPI Constitutional: + fatigue and + weakness; no fever and no chills Respiratory: no cough, no chest congestion and no dyspnea shortness of breath Cardiovascular: + edema; no chest pain with activity, no lightheadedness, no syncope and no calf pain Gastrointestinal: + constipation; no abdominal pain, no early satiety, no nausea and no vomiting Musculoskeletal: as per Subjective / HPI and + muscle weakness Per patient legs are weak and hard to ambulate, mostly bed ridden or wheel chair Neurologic: + gait abnormality, + falls and + localized weakness; no syncope Physical Exam Constitutional: + obese and + edematous Neck: trachea midline, no thyromegaly Respiratory: + labored breathing and able to speak in complete sentences; no cough and no pursed lip breathing Cardiovascular: Rate/Rhythm: regular rate and regular rhythm Heart Sounds: + murmur Extremities: + edema; no calf tenderness Gastrointestinal (Abdomen): Inspection/Auscultation: + abdomen distended, normal bowel sounds, + abdominal edema and + significant pannus Percussion/Palpation: abdomen soft; abdomen nontender, no guarding and abdomen not rigid Neurologic: CN's II-XI intact bilaterally and awake; not confused Psychiatric: A+Ox3, euthymic affect Results & Data Results & Data ([facility]) Vital Signs (Past 12 Hours) Vital Signs Temp Pulse Pulse Pulse Resp BP Pulse Ox 12/19/22 07:23 37.1 C 98 H 20 113/65 97 12/19/22 07:19 92 H 16 95 12/18/22 22:28 59 L 12/19/22 03:46 36.4 C L 98 H 20 144/73 H 93 12/19/22 03:01 12/19/22 02:20 65 22 94 12/19/22 02:02 96 H 18 92 12/18/22 23:00 36.8 C 60 22 118/60 93 12/18/22 22:42 63 18 92 O2 Del Method 12/19/22 07:23 Room Air 12/19/22 07:19 Room Air 12/18/22 22:28 12/19/22 03:46 Room Air, Nasal CPAP 12/19/22 03:01 Room Air, Nasal CPAP 12/19/22 02:20 12/19/22 02:02 Room Air 12/18/22 23:00 BiPAP 12/18/22 22:42 Laboratory Results Abnormal lab results 12/18/22 12/18/22 12/19/22 Range/Units 16:33 21:01 05:58 RBC 2.85 L (3.93-5.22) M/uL Hgb 7.5 L (12.0-16.0) g/dl Hct 24.4 L (34.1-44.9) % MCHC 30.7 L (32.0-36.0) g/dL RDW Std Deviation 61.7 H (36.4-46.3) fL RDW Coeff of Lelo 19.8 H (11.5-14.5) % MPV 8.6 L (9.4-12.3) fL Sodium (136-145) mmol/L Chloride (98-107) mmol/L BUN (6-23) mg/dl Creatinine (0.6-1.2) mg/dl BUN/Creatinine Ratio (10-20) Glucose (70-99(Fasting)) mg/dl POC Glucose 154 H 150 H (70-99) mg/dl 12/19/22 12/19/22 12/19/22 Range/Units 06:01 07:48 11:36 RBC (3.93-5.22) M/uL Hgb (12.0-16.0) g/dl Hct (34.1-44.9) % MCHC (32.0-36.0) g/dL RDW Std Deviation (36.4-46.3) fL RDW Coeff of Lelo (11.5-14.5) % MPV (9.4-12.3) fL Sodium 123 L (136-145) mmol/L Chloride 94 L (98-107) mmol/L BUN 68 H (6-23) mg/dl Creatinine 2.11 H (0.6-1.2) mg/dl BUN/Creatinine Ratio 32.2 H (10-20) Glucose 106 H (70-99(Fasting)) mg/dl POC Glucose 123 H 124 H (70-99) mg/dl PG Care Time/CCT Total # of Minutes Spent Total Time Spent with Patient: Total time spent is greater than 50% in coordination of care (as documented) at patient's floor/unit and/or counseling patient: Coding Level of Care Code 97345 SUB INP/OBS CARE MIN Diagnoses Acute exacerbation of CHF (congestive heart failure) I50.813 Heart failure type: right-sided Fall W19.XXXA Anasarca R60.1 Anemia D64.9 Anemia type: unspecified type Catheter-associated urinary tract infection T83.511A; N39.0 Atrial fibrillation I48.20 Atrial fibrillation type: unspecified chronic CAD (coronary artery disease) I25.10 Associated angina: without angina Coronary Disease-Associated Artery/Lesion type: [place] artery [place] vs. transplanted heart: [place] heart Swelling of both lower extremities M79.89 Elevated troponin R77.8 Chronic kidney disease, stage 3 N18.30 Chronic kidney disease stage 3 subtype: unspecified whether 3a or 3b Sleep apnea G47.30 Hyperlipidemia E78.5 Type 2 diabetes mellitus with kidney complication, with long-term current use of insulin E11.29; Z79.4 Hypertension I10 Hypertension type: unspecified Hyponatremia E87.1 Pressure ulcer of right heel, stage 1 L89.611 Constipation K59.00 (1) Acute exacerbation of CHF (congestive heart failure) Heart failure type: right-sided Qualified Code(s): I50.813 - Acute on chronic right heart failure (2) Chronic kidney disease, stage 3 Chronic kidney disease stage 3 subtype: unspecified whether 3a or 3b Qualified Code(s): N18.30 - Chronic kidney disease, stage 3 unspecified (3) CAD (coronary artery disease) Associated angina: without angina Coronary Disease-Associated Artery/Lesion type: [place] artery [place] vs. transplanted heart: [place] heart Qualified Code(s): I25.10 - Atherosclerotic heart disease of [place] coronary artery without angina pectoris (4) Anemia Anemia type: unspecified type Qualified Code(s): D64.9 - Anemia, unspecified (5) Atrial fibrillation Atrial fibrillation type: unspecified chronic Qualified Code(s): I48.20 - Chronic atrial fibrillation, unspecified (6) Hypertension Hypertension type: unspecified Qualified Code(s): I10 - Essential (primary) hypertension
[2022-12-19] MEDS ORDERED: TORSEMIDE 10 MG TAB PO SCH (09:00)
[2022-12-19] MEDS ORDERED: SODIUM CHLORIDE 1 GM TABLET PO ONE (09:14)
--- NOTE | 2022-12-19 13:51 | Nephrology Progress Note ---
Date of Service December 19, 2022 Assessment & Plan (1) Acute kidney failure: (2) Anasarca: (3) Catheter-associated urinary tract infection: (4) Acute hyperkalemia: (5) Hyponatremia: (6) Acute exacerbation of CHF (congestive heart failure): Plan 77 yoF with CKD IIIb, b/l cr 1.6-2.0 secondary to DKD and HTN, urine PCR 0.5, morbid obesity, HFpEF, chronic right sided heart failure and pulmonary hypertension, untreated JASON, atrial fibrillation, CAD/PAD, cirrhosis, chronic anemia, history of lung cancer, history of paraplegia with chronic suprapubic catheter Admitted on 12/13/22 with increased swelling in the right arm/abdomen and several recent falls. she has been following with heart failure clinic for sided heart failure, recently diuretics switch from furosemide to torsemide and currently on 80 mg daily, has been net negative although she content be volume overloaded. also has history of chronic anemia, has been following with Hematology as an outpatient and has been getting DU. Hemoglobin staying low around 7.3-7.5. Renal function staying relatively stable although there has been some variability in creatinine, sodium dropped to 123. Currently on torsemide 40 mg bid has been net positive over last 24 hours. -- sodium chloride 2 g x 1 dose now and then 1 g twice a day, change to normal salt in diet. -- Epogen 57387 units x 1 dose given yesterday. -- fluid restriction to less than 1500 mL per day. Will follow Admission and Anticipated Discharge Date Admission Date: December 15, 2022 Peter Garcia was seen and evaluated in her room this morning. She was doing better today although still getting easily short of breath while talking. Continues to be net positive over last 24 hours. Renal function staying relatively stable with some variability in creatinine, Sodium dropped to 123. Review of Systems Review of Systems: detailed review of system was otherwise unremarkable except mentioned above. Physical Exam Constitutional: + acute distress, + ill appearing and + obese Neck: normal visual inspection Respiratory: normal respiratory effort Auscultation: + diminished lung sounds and + crackles; no wheezes Cardiovascular: Rate/Rhythm: regular rate Heart Sounds: normal S1, normal S2 and + murmur Extremities: + edema (+3-4 pitting extending to thighs) Skin: + turgor decreased; no jaundice Neurologic: no focal motor deficits Psychiatric: Orientation: alert and oriented x 3 Results & Data ([facility]) Vital Signs (Past 12 Hours) Vital Signs Temp Pulse Pulse Resp BP Pulse Ox O2 Del Method 12/19/22 12:00 37.0 C 56 L 20 111/62 95 Room Air 12/19/22 11:15 60 18 95 Room Air 12/19/22 07:23 37.1 C 98 H 20 113/65 97 Room Air 12/19/22 07:19 92 H 16 95 Room Air 12/19/22 03:46 36.4 C L 98 H 20 144/73 H 93 Room Air, Nasal CPAP 12/19/22 03:01 Room Air, Nasal CPAP 12/19/22 02:20 65 22 94 12/19/22 02:02 96 H 18 92 Room Air PG Care Time/CCT Total # of Minutes Spent Total Time Spent with Patient: Total time spent is greater than 50% in coordination of care (as documented) at patient's floor/unit and/or counseling patient: Coding Level of Care Code 05002 SUB INP/OBS CARE 2/35MIN Diagnoses Acute kidney failure N17.9 Anasarca R60.1 Catheter-associated urinary tract infection T83.511A; N39.0 Acute hyperkalemia E87.5 Hyponatremia E87.1 Acute exacerbation of CHF (congestive heart failure) I50.813 Heart failure type: right-sided (1) Acute exacerbation of CHF (congestive heart failure) Heart failure type: right-sided Qualified Code(s): I50.813 - Acute on chronic right heart failure
[2022-12-19] MEDS ORDERED: bisacodyL 10 MG SUPP PR STA (14:48)
[2022-12-19] MEDS ORDERED: FUROSEMIDE 40 MG/4 ML VIAL IV ONE (17:00)
[2022-12-19] MEDS ORDERED: bisacodyL 10 MG SUPP PR ONE (17:38)
[2022-12-19] MEDS: AMITRIPTYLINE HCL 50 MG TAB PO SCH (20:55)
[2022-12-19] MEDS: SODIUM CHLORIDE 1 GM TABLET PO SCH (20:56)
[2022-12-20 07:23] LABS: Hematocrit (blood only) 23.9 % (34.1-44.9); Hemoglobin 7.4 g/dl (12.0-16.0); Mean Corpuscular Hemoglobin 26.1 pg (25.0-34.0); Mean Corpuscular Volume 84.5 fL (80.0-100.0); Platelet Count 276 K/uL (130-400); RDW Coefficient of Variation 20.3 % (11.5-14.5); RDW Standard Deviation 61.6 fL (36.4-46.3); Red Blood Count 2.83 M/uL (3.93-5.22); White Blood Count 9.32 K/ul (4.8-10.8)
[2022-12-20] MEDS: ALBUT/IPRATROP 3MG/0.5MG NEB 3 ML VIAL NEB SCH ×4 (07:35→20:28)
[2022-12-20 07:41] LABS: Calcium 8.7 mg/dl (8.5-10.1); Magnesium 2.1 mg/dl (1.7-2.4); Potassium 4.1 mmol/L (3.5-5.1)
[2022-12-20 07:46] LABS: Est GFR (African American) 21.9 ml/min
[2022-12-20 07:47] LABS: BUN Creatinine Ratio 31.1 (10-20); Creatinine Clr Calc Pharmacy 23.7 ml/min; Est GFR (Non-African American) 18.9 ml/min
[2022-12-20] MEDS: SODIUM CHLORIDE 1 GM TABLET PO SCH ×2 (08:10→21:51)
[2022-12-20] MEDS: ROSUVASTATIN CALCIUM 20 MG TAB PO SCH (08:10)
[2022-12-20] MEDS: FERROUS SULFATE 325 MG TAB PO SCH (08:11)
[2022-12-20] MEDS: MAGNESIUM CHLORIDE W/CALCIUM 64MG DELAYED REL TAB PO SCH ×3 (08:11→21:50)
[2022-12-20] MEDS: APIXABAN 5 MG TABLET PO SCH ×2 (08:11→21:51)
[2022-12-20] MEDS: hydrALAZINE TAB 50 MG TAB PO SCH ×3 (08:11→21:52)
[2022-12-20] MEDS: PANTOprazole 40 MG TAB PO SCH ×2 (08:11→21:50)
[2022-12-20] MEDS: allopurinoL 100 MG TAB PO SCH (08:12)
[2022-12-20] MEDS: POLYETHYLENE (MIRALAX) 17 GM PACK PO SCH (08:12)
[2022-12-20] MEDS: DOCUSATE SODIUM 100 MG CAP PO SCH ×2 (08:12→21:50)
[2022-12-20] MEDS: METOPROLOL SUCC 50MG EXT REL TAB PO SCH (08:12)
[2022-12-20] MEDS: rOPINIRole HCL 2 MG TABLET PO SCH ×4 (08:13→21:53)
[2022-12-20] MEDS: guaiFENesin 600 MG TABCR PO SCH ×2 (08:14→21:52)
[2022-12-20] MEDS: LIDOCAINE 5% 1 PATCH TD SCH (08:14)
[2022-12-20] MEDS: cefTRIAXone SODIUM 2,000 MG in DEXTROSE 5% 50 ML IV SCH (08:18)
[2022-12-20] MEDS: FUROSEMIDE 40 MG/4 ML VIAL IV SCH (08:23)
[2022-12-20] MEDS: LANTUS PER UNIT CHARGE SQ SCH ×2 (08:30→21:54)
[2022-12-20] MEDS: INSULIN ASPART PER UNIT SC SCH ×4 (08:30→21:54)
--- NOTE | 2022-12-20 09:09 | Hospitalist Progress Note ---
Date of Service December 20, 2022 Assessment & Plan (1) Acute exacerbation of CHF (congestive heart failure): Plan: Patient presented after a fall (multiple falls at home, on eliquis). CT head negative on admit, other imaging negative for trauma (does have subacute R m etatarsal fx R foot though on imaging obtained after admit) Acute on chronic RIGHT SIDED HEART FAILURE in patient w/ Hx CAD s/p CABG, afib on Eliquis (follows w/ Dr Hernandez/Elvia) Patient did not respond to escalating doses of outpatient diuretics and is now on inpatient parenteral diuretics with eventual transition to oral medications on 12/21/2022 Nephrology consulted for assistance w/ volume management CHF clinic also following Procrit given 12/17/22 by nephro due to anemia of chronic disease associated with chronic kidney disease Unable to get paracentesis more Anasarca than Ascites Restart eliquis 12/18/22 Continue to monitor weights/I&O, CHF clinic f/u Nephrology recommending 0.5 to 1 Liter net negative ECHO unchanged from prior, EF 50-55%, borderline global hypokinesis of left vent ricle (consider outpatient R heart cath) Continued compliance w/ CPAP recommended Patient tells me she is using at night (2) Hyponatremia: Plan: no lightheaded/dizziness reported Started sodium chloride 2gm x 1 today and then 1gm BID Normal salt in diet continue 1500 fluid restriction Nephrology recommending IV diuretics until can achieved a net loss of 0.5 to 1 Liter daily (3) Fall: Plan: mechanical falls 2nd LE weakness from prior back surgery/partial paraplegia, volume overload, increased weight of lower extremities, CHF, anemia, possible UTI CT head negative, trauma imaging neg subacute and limited metatarsal fx R foot, non-weight bearing, PT/OT cons ultations, ortho consulted wound RN consulted for R heel wound UA - possible UTI in patient w/ chronic suprapubic catheter 2nd to neurogenic bladder --> 12/18/22 ceftriaxone IV cultures negative x2 we will discontinue antibiotics Dopplers NEGATIVE for DVT R foot heel wound/ulcer and fracture DM foot ulcer stage I acute unstable problem -- xray w/ subacute fx distal 5th metatarsal, ortho consulted. no treatment - wound RN on consult for wound, no drainagif any drainage, would collect sample Physical Therapy reconsulted Per patient and her she was standing at times. She does have a wheelchair and a elsie lift but not always needed. (4) Anasarca: Plan: Directly affecting her ability to ambulate due to the weight of her legs due to her significant edema this is a chronic and stable problem which is progressed Diuretics as outlined above paracentesis not indicated due to lack of enough ascites NO PAIN on exam, no concerns for SBP appears most recent c-scope/egd w/ Dr Haywood in September 2022--> C-scope notes redundant colon, referred for virtual colonoscopy/ct colonography (done in October -- normal, noted cardiomegaly/volume overload, anasarca, multiple stable subcentimeter pulm nodules stable since PET may 2022) Normal Platelets, likely ascites secondary to right heart failure Restarted Eliquis (5) Anemia: Plan: Chronic and stable 2nd to CKD/chronic illness and iron deficiency. no bleeding reported TSH wnl Transferrin sat low at 10% EPO 12/14, to continue weekly retacrit w/ [place] hgb improved on repeat, around baseline and given dose of Venofer IV as well, can repeat in AM (Iron 15, TIBC 150, transferrin 102, unsat IBC 135 and trans % sat 10) On PO iron [employer] as well monitor CBC (6) Catheter-associated urinary tract infection: Plan: Ruled out (7) Atrial fibrillation: Plan: Chronic and stable, rate controlled, continues on metoprolol Eliquis 5mg BID -- despite high risk w/ falls, is not very ambulatory at baseline and rec continuing AC (8) CAD (coronary artery disease): Plan: No CP reported, trops minor elevation, 2nd to CHF/anemia as above EKG w/ CP Monitor on tele (9) Elevated troponin: Plan: Acute self-limited, demand from CHF exacerbation/anemia ECHO limited ordered as above (10) Chronic kidney disease, stage 3: Plan: Chronic and unstable with recent adjustment of diuretic therapy nephro consulted for additional assistance w/ diuretics given CKD/cirrhosis as well (11) Sleep apnea: Plan: Continue to educate and stress the importance of compliance HS CPAP ordered Encouraged use (12) Type 2 diabetes mellitus with kidney complication, with long-term current use of insulin: Plan: Chronic and stable last A1c 5.6 Monitor BSG ACHS, goal range is 110-140 Lantus 5u BID, CRF 40, CR 13 BSGs acceptable, continue to monitor (13) Hypertension: Plan: Chronic and stable stable Continue metoprolol, hydralazine Gave IV Lasix 40mg today BP stable Admission and Anticipated Discharge Date Admission Date: December 15, 2022 Subjective Patient seen in the company of her she was without acute complaints she is disappointed with regard to her lower extremity edema which is not responded well to diuretic therapy Physical Exam Physical Exam: Patient has persistent JVD her cardiac exam is regular her lungs are clear she has edema to her thighs and lower abdomen which is 1-2+ Results & Data Results & Data ([facility]) Vital Signs (Past 12 Hours) Vital Signs Temp Pulse Pulse Pulse Resp BP Pulse Ox 12/20/22 07:49 98.6 F 78 16 121/74 99 12/20/22 07:35 74 16 97 12/20/22 03:03 97.7 F 62 20 131/69 94 12/20/22 03:21 48 L 16 92 12/19/22 22:44 63 12/19/22 23:40 98.1 F 61 16 115/62 93 12/19/22 22:17 71 26 H 91 O2 Del Method FiO2 12/20/22 07:49 Room Air 12/20/22 07:35 Room Air 12/20/22 03:03 Nasal CPAP 12/20/22 03:21 21 12/19/22 22:44 12/19/22 23:40 Nasal CPAP 12/19/22 22:17 21 Diagnostic Findings Reviewed CBC with anemia due to chronic disease/inflammation Reviewed chemistry panel showing hyponatremia which persist but improved Reviewed final urine analysis with cessation of antibiotics PG Care Time/CCT Total # of Minutes Spent Total Time Spent with Patient: Total time spent is greater than 50% in coordination of care (as documented) at patient's floor/unit and/or counseling patient: Coding Level of Care Code 37257 SUB INP/OBS CARE 3/50MIN Diagnoses Acute exacerbation of CHF (congestive heart failure) I50.813 Heart failure type: right-sided Hyponatremia E87.1 Fall W19.XXXA Anasarca R60.1 Anemia D64.9 Anemia type: unspecified type Catheter-associated urinary tract infection T83.511A; N39.0 Atrial fibrillation I48.20 Atrial fibrillation type: unspecified chronic CAD (coronary artery disease) I25.10 Associated angina: without angina Coronary Disease-Associated Artery/Lesion type: [place] artery [place] vs. transplanted heart: [place] heart Elevated troponin R77.8 Chronic kidney disease, stage 3 N18.30 Chronic kidney disease stage 3 subtype: unspecified whether 3a or 3b Sleep apnea G47.30 Type 2 diabetes mellitus with kidney complication, with long-term current use of insulin E11.29; Z79.4 Hypertension I10 Hypertension type: unspecified (1) Acute exacerbation of CHF (congestive heart failure) Heart failure type: right-sided Qualified Code(s): I50.813 - Acute on chronic right heart failure (2) Chronic kidney disease, stage 3 Chronic kidney disease stage 3 subtype: unspecified whether 3a or 3b Qualified Code(s): N18.30 - Chronic kidney disease, stage 3 unspecified (3) CAD (coronary artery disease) Associated angina: without angina Coronary Disease-Associated Artery/Lesion type: [place] artery [place] vs. transplanted heart: [place] heart Qualified Code(s): I25.10 - Atherosclerotic heart disease of [place] coronary artery without angina pectoris (4) Anemia Anemia type: unspecified type Qualified Code(s): D64.9 - Anemia, unspecified (5) Atrial fibrillation Atrial fibrillation type: unspecified chronic Qualified Code(s): I48.20 - Chronic atrial fibrillation, unspecified (6) Hypertension Hypertension type: unspecified Qualified Code(s): I10 - Essential (primary) hypertension
[2022-12-20] MEDS: ACETAMINOPHEN 500 MG TAB PO PRN ×2 (12:00→22:01)
--- NOTE | 2022-12-20 15:18 | Nephrology Progress Note ---
Date of Service December 20, 2022 Assessment & Plan (1) Acute kidney failure: (2) Anasarca: (3) Catheter-associated urinary tract infection: (4) Acute hyperkalemia: (5) Hyponatremia: (6) Acute exacerbation of CHF (congestive heart failure): Plan 77 yoF with CKD IIIb, b/l cr 1.6-2.0 secondary to DKD and HTN, urine PCR 0.5, morbid obesity, HFpEF, chronic right sided heart failure and pulmonary hypertension, untreated JASON, atrial fibrillation, CAD/PAD, cirrhosis, chronic anemia, history of lung cancer, history of paraplegia with chronic suprapubic catheter Admitted on 12/13/22 with increased swelling in the right arm/abdomen and several recent falls. she has been following with heart failure clinic for sided heart failure, recently diuretics switch from furosemide to torsemide and currently on 80 mg daily, has been net negative although she content be volume overloaded. also has history of chronic anemia, has been following with Hematology as an outpatient and has been getting DU. Hemoglobin staying low around 7.3-7.5. Renal function slightly worsened over last 2 days. Currently on torsemide 40 mg bid has been net positive over last 24 hours. -- sodium chloride 1 g twice a day, change to normal salt in diet. -- received Epogen 00054 units x 1 dose on 12/18/22. -- fluid restriction to less than 1500 mL per day. -- recommend increasing IV diuretics and add metolazone Will follow Admission and Anticipated Discharge Date Admission Date: December 15, 2022 Peter Garcia was seen and evaluated in her room this morning. She is comfortable at rest but gets easily short of breath while talking and with any kind of movement Continues to be net positive over last 24 hours. Renal function slowly worsened over last 2 days. Sodium improved to 126. Review of Systems Review of Systems: detailed review of system was otherwise unremarkable except mentioned above. Physical Exam Constitutional: + acute distress, + ill appearing and + obese Neck: normal visual inspection Respiratory: normal respiratory effort Auscultation: lungs clear to auscultation bilaterally, + diminished lung sounds and + crackles; no wheezes Cardiovascular: Rate/Rhythm: regular rate Heart Sounds: normal S1, normal S2 and + murmur Vessels: + JVD Extremities: + edema (+3-4 pitting extending to thighs) Skin: + turgor decreased; no jaundice Neurologic: no focal motor deficits Psychiatric: Orientation: alert and oriented x 3 Results & Data ([facility]) Vital Signs (Past 12 Hours) Vital Signs Temp Pulse Pulse Pulse Resp BP BP 12/20/22 12:04 37 C 77 116/58 L 12/20/22 10:55 77 18 12/20/22 07:49 37 C 78 16 121/74 12/20/22 07:35 74 16 12/20/22 03:21 48 L 16 Pulse Ox O2 Del Method FiO2 12/20/22 12:04 93 Room Air 12/20/22 10:55 90 Room Air 12/20/22 07:49 99 Room Air 12/20/22 07:35 97 Room Air 12/20/22 03:21 92 21 PG Care Time/CCT Total # of Minutes Spent Total Time Spent with Patient: Total time spent is greater than 50% in coordination of care (as documented) at patient's floor/unit and/or counseling patient: Coding Level of Care Code 28879 SUB INP/OBS CARE 3/50MIN Diagnoses Acute kidney failure N17.9 Anasarca R60.1 Catheter-associated urinary tract infection T83.511A; N39.0 Acute hyperkalemia E87.5 Hyponatremia E87.1 Acute exacerbation of CHF (congestive heart failure) I50.813 Heart failure type: right-sided (1) Acute exacerbation of CHF (congestive heart failure) Heart failure type: right-sided Qualified Code(s): I50.813 - Acute on chronic right heart failure
--- NOTE | 2022-12-20 15:32 | Heart Failure Progress Note ---
Date of Service December 20, 2022 Assessment & Plan (1) Swelling of both lower extremities: (2) Chronic kidney disease, stage 3: (3) Sleep apnea: (4) Atrial fibrillation: (5) CAD (coronary artery disease): (6) Obesity: (7) Pulmonary hypertension: (8) Hypertension: (9) (HFpEF) heart failure with preserved ejection fraction: (10) Cirrhosis: (11) Valvular heart disease: Plan 1. Congestive heart failure with right ventricular systolic dysfunction: She remains hypervolemic- consistent with right sided symptoms. She notes intermittent dyspnea. Suspect her anemia is contributing to her DIALLO as well as diuretic resistance. Despite several trials of Lasix/Torsemide, she remains net positive. Discussed with nephrology and recommend resuming IV diuretics and aim for net negative .5-1L per day. Ordered Lasix 40 mg IV. Low threshold to increase to 80 mg IV or switch to Bumex if not having significant response in 12-24 hours. Spironolactone 50 mg BID on hold. Given her worsening pulmonary symptoms, may need to accept some degree of renal decline to maintain her volume status and quality of life. Continue to monitor potassium. Patient is unable to do daily weights at home which will make her volume management challenging. Continue home PT- may need to consider short term rehab stay for strengthening. Low sodium diet, less than 2,000 mg daily. Strict I&Os. Would resume fluid restriction. 2. Valvular heart disease: /MR/TR. Mild to moderate on most recent echocar diogram, likely done in the setting of hypervolemia. Continue to monitor. Consider repeat study once euvolemic for better assessment. 3. Atrial fibrillation: Asymptomatic. Continue rate control with Metoprolol. Continue anti-coagulation. 4. CAD: No anginal symptoms. Continue medical therapy. 5. JASON: Encourage CPAP compliance. 6. Hypertension: Controlled. Continue current medical therapy. 7. Pulmonary hypertension: Continue diuretics as above. Most recent echo done while hypervolemic. Would consider outpatient study once optimized. 8. Anemia: Long standing. Follows with [facility] for weekly Retacrit. Planning to treat while inpatient. Likely contributing to her dyspnea and diuretic resistance. 9. Hyponatremia: Would resume her fluid restriction and continue monitoring. Nephrology on board. Disposition: Will be away from the hospital tomorrow and through the weekend. Please call hospital squirrel worker with concerns. Recommend close outpatient follow up with the heart failure program. Admission and Anticipated Discharge Date Admission Date: December 15, 2022 Subjective Patient evaluated this am in her room. She feels her breathing is "ok". today She was noticing this more at rest and with conversation but has been intermittent. She is tolerating room air. Edema consistent with her baseline. She continues to note abdominal distention. Paracentesis unable to be obtained. Hgb stable but low. Remains hyponatremic but improved from earlier in the week. Renal function slightly worse. She denies chest pain, cough, lightheadedness. She's net positive for the admission. Weight 244 per bed scale. Physical Exam Physical Exam: Constitutional: Alert, oriented, in no acute distress HEENT: Head is atraumatic and normocephalic. EOMs intact. Sclera anicteric. Face is symmetric. No perioral cyanosis. Mucous membranes moist. Neck: Supple, - JVD. Pulmonary: Normal respiratory effort, bibasilar crackles. Decreased breath sounds throughout. Cardiac: Regular rate and rhythm. Normal S1 and S2, no gallops, no rubs. Grade II systolic murmur. Extremities: 2+ radial pulses bilaterally. 2+ posterior tibialis pulses bilaterally. 2-3+ pitting edema bilaterally. No cyanosis or clubbing. Abdomen: Normal bowel sounds, soft, non-tender, no abdominal mass palpate. Obese. Skin: Normal skin color, turgor, and pigmentation, no rash, no skin lesions. Ecchymosis noted from fall. Neurological: Patient is awake, alert, and oriented. Pleasant and cooperative. Answers questions appropriately. Speech is clear. Results & Data ([facility]) Vital Signs (Past 12 Hours) Vital Signs Temp Pulse Pulse Resp BP BP Pulse Ox 12/20/22 12:04 98.6 F 77 116/58 L 93 12/20/22 10:55 77 18 90 12/20/22 07:49 98.6 F 78 16 121/74 99 12/20/22 07:35 74 16 97 O2 Del Method 12/20/22 12:04 Room Air 12/20/22 10:55 Room Air 12/20/22 07:49 Room Air 12/20/22 07:35 Room Air PG Care Time/CCT Total # of Minutes Spent Total Time Spent with Patient: Total time spent is greater than 50% in coordination of care (as documented) at patient's floor/unit and/or counseling patient: Coding Level of Care Code 25184 SUB INP/OBS CARE 350MIN Diagnoses Swelling of both lower extremities M79.89 Chronic kidney disease, stage 3 N18.30 Chronic kidney disease stage 3 subtype: unspecified whether 3a or 3b Sleep apnea G47.30 Atrial fibrillation I48.20 Atrial fibrillation type: unspecified chronic CAD (coronary artery disease) I25.10 Associated angina: without angina Coronary Disease-Associated Artery/Lesion type: [place] artery [place] vs. transplanted heart: [place] heart Obesity E66.9 Pulmonary hypertension I27.20 Hypertension I10 Hypertension type: unspecified (HFpEF) heart failure with preserved ejection fraction I50.30 Cirrhosis K74.60 Valvular heart disease I38 (1) Chronic kidney disease, stage 3 Chronic kidney disease stage 3 subtype: unspecified whether 3a or 3b Qualified Code(s): N18.30 - Chronic kidney disease, stage 3 unspecified (2) CAD (coronary artery disease) Associated angina: without angina Coronary Disease-Associated Artery/Lesion type: [place] artery [place] vs. transplanted heart: [place] heart Qualified Code(s): I25.10 - Atherosclerotic heart disease of [place] coronary artery without angina pectoris (3) Atrial fibrillation Atrial fibrillation type: unspecified chronic Qualified Code(s): I48.20 - Chronic atrial fibrillation, unspecified (4) Hypertension Hypertension type: unspecified Qualified Code(s): I10 - Essential (primary) hypertension
[2022-12-20] MEDS: AMITRIPTYLINE HCL 50 MG TAB PO SCH (21:51)
[2022-12-21] MEDS: ALBUT/IPRATROP 3MG/0.5MG NEB 3 ML VIAL NEB SCH ×2 (07:34→11:07)
[2022-12-21 08:04] LABS: Hematocrit (blood only) 24.2 % (34.1-44.9); Hemoglobin 7.4 g/dl (12.0-16.0); Mean Corpuscular Hemoglobin 26.6 pg (25.0-34.0); Mean Corpuscular Hgb Conc 30.6 g/dL (32.0-36.0); Mean Corpuscular Volume 87.1 fL (80.0-100.0); Mean Platelet Volume 8.6 fL (9.4-12.3); Platelet Count 263 K/uL (130-400); RDW Coefficient of Variation 20.4 % (11.5-14.5); RDW Standard Deviation 64.2 fL (36.4-46.3); Red Blood Count 2.78 M/uL (3.93-5.22); White Blood Count 9.09 K/ul (4.8-10.8)
[2022-12-21] MEDS: rOPINIRole HCL 2 MG TABLET PO SCH (08:22)
[2022-12-21] MEDS: MAGNESIUM CHLORIDE W/CALCIUM 64MG DELAYED REL TAB PO SCH (08:23)
[2022-12-21] MEDS: FERROUS SULFATE 325 MG TAB PO SCH (08:23)
[2022-12-21] MEDS: ROSUVASTATIN CALCIUM 20 MG TAB PO SCH (08:23)
[2022-12-21] MEDS: APIXABAN 5 MG TABLET PO SCH (08:24)
[2022-12-21] MEDS: POLYETHYLENE (MIRALAX) 17 GM PACK PO SCH (08:24)
[2022-12-21] MEDS: DOCUSATE SODIUM 100 MG CAP PO SCH (08:24)
[2022-12-21] MEDS: PANTOprazole 40 MG TAB PO SCH (08:24)
[2022-12-21] MEDS: allopurinoL 100 MG TAB PO SCH (08:25)
[2022-12-21] MEDS: guaiFENesin 600 MG TABCR PO SCH (08:25)
[2022-12-21] MEDS: SODIUM CHLORIDE 1 GM TABLET PO SCH (08:25)
[2022-12-21] MEDS: hydrALAZINE TAB 50 MG TAB PO SCH (08:25)
[2022-12-21] MEDS: METOPROLOL SUCC 50MG EXT REL TAB PO SCH (08:25)
[2022-12-21] MEDS: FUROSEMIDE 40 MG/4 ML VIAL IV SCH (08:26)
[2022-12-21] MEDS: LIDOCAINE 5% 1 PATCH TD SCH (08:26)
[2022-12-21] MEDS: INSULIN ASPART PER UNIT SC SCH ×2 (08:36→12:56)
[2022-12-21] MEDS: LANTUS PER UNIT CHARGE SQ SCH (08:36)
[2022-12-21 10:07] LABS: Calcium 8.8 mg/dl (8.5-10.1); Creatinine Clr Calc Pharmacy 24.8 ml/min; Est GFR (African American) 22.8 ml/min; Est GFR (Non-African American) 19.7 ml/min; Potassium 4.1 mmol/L (3.5-5.1)
--- NOTE | 2022-12-21 13:58 | Nephrology Progress Note ---
Date of Service December 21, 2022 Assessment & Plan (1) Acute kidney failure: (2) Anasarca: (3) Catheter-associated urinary tract infection: (4) Acute hyperkalemia: (5) Hyponatremia: (6) Acute exacerbation of CHF (congestive heart failure): Plan 77 yoF with CKD IIIb, b/l cr 1.6-2.0 secondary to DKD and HTN, urine PCR 0.5, morbid obesity, HFpEF, chronic right sided heart failure and pulmonary hypertension, untreated JASON, atrial fibrillation, CAD/PAD, cirrhosis, chronic anemia, history of lung cancer, history of paraplegia with chronic suprapubic catheter Admitted on 12/13/22 with increased swelling in the right arm/abdomen and several recent falls. she has been following with heart failure clinic for sided heart failure, recently diuretics switch from furosemide to torsemide and currently on 80 mg daily, has been net negative although she content be volume overloaded. also has history of chronic anemia, has been following with Hematology as an outpatient and has been getting DU. Hemoglobin staying low around 7.3-7.5. Renal function slightly worsened over last 2 days, sodium 127, hard to assess volume status but overall continues to do work volume overloaded. -- sodium chloride 1 g twice a day, change to normal salt in diet. -- received Epogen 75749 units x 1 dose on 12/18/22. -- fluid restriction to less than 1500 mL per day. Will follow Admission and Anticipated Discharge Date Admission Date: December 15, 2022 Peter Garcia was seen and evaluated in her room this morning. She is comfortable at rest overall looks better although she remains positive overnight and total net negative only 500 mL since admission. lower extremity edema seems to be better. Renal function stable, sodium 127. Review of Systems Review of Systems: detailed review of system was otherwise unremarkable except mentioned above. Physical Exam Constitutional: + acute distress, + ill appearing and + obese Neck: normal visual inspection Respiratory: normal respiratory effort Auscultation: lungs clear to auscultation bilaterally, + diminished lung sounds and + crackles; no wheezes Cardiovascular: Rate/Rhythm: regular rate Heart Sounds: normal S1, normal S2 and + murmur Extremities: + edema (trace, improved.) Skin: + turgor decreased; no jaundice Neurologic: no focal motor deficits Psychiatric: Orientation: alert and oriented x 3 Results & Data ([facility]) Vital Signs (Past 12 Hours) Vital Signs Temp Pulse Pulse Resp BP BP Pulse Ox 12/21/22 08:13 12/21/22 11:31 36.8 C 81 20 142/55 H 97 12/21/22 11:07 60 18 96 12/21/22 08:00 36.7 C 53 L 20 122/65 91 12/21/22 07:34 60 14 96 12/21/22 07:13 56 L 12/21/22 03:24 36.8 C 61 20 103/59 L 92 12/21/22 02:37 64 19 94 O2 Del Method O2 Flow Rate FiO2 12/21/22 08:13 Room Air 12/21/22 11:31 Nebulizer 7 12/21/22 11:07 Room Air 12/21/22 08:00 Room Air 12/21/22 07:34 Room Air 12/21/22 07:13 12/21/22 03:24 CPAP 12/21/22 02:37 21 PG Care Time/CCT Total # of Minutes Spent Total Time Spent with Patient: Total time spent is greater than 50% in coordination of care (as documented) at patient's floor/unit and/or counseling patient: Coding Level of Care Code 92086 SUB INP/OBS CARE 3/50MIN Diagnoses Acute kidney failure N17.9 Anasarca R60.1 Catheter-associated urinary tract infection T83.511A; N39.0 Acute hyperkalemia E87.5 Hyponatremia E87.1 Acute exacerbation of CHF (congestive heart failure) I50.813 Heart failure type: right-sided (1) Acute exacerbation of CHF (congestive heart failure) Heart failure type: right-sided Qualified Code(s): I50.813 - Acute on chronic right heart failure
--- NOTE | 2022-12-21 14:14 | Discharge Summary ---
Date of Service December 21, 2022 Admission HPI Per Admitting Provider Radha is a 77 year old female with a PMH significant for DM II, HTN, hyperlipidemia, PAD, stage 3 CKD, Anemia, previous lung cancer, TIA, sleep apnea, afib on eliquis, CAD, paraplegia with chronic suprapubic catheter, HFpEF (LVEF of 55-60%, severe pulmonary HTN, and intermediate diastolic dysfunction as of 07/31/22) who presented to the [facility] ED on 12/13/22 with a chief complaint of increased swelling in the right arm/abdomen and multiple falls within the past week,. In the ED the patient was found to be afebrile, hemodynamically stable, and stable on RA. Labs were remarkable for a WBC WNL, Hgb of 7.5 (down from 8.4 as of 11/30/22), stable platelets at 211, INR of 1.6, stable cr at 1.67 (Baseline is 1.6 per the last Nephrology clinic note on 11/30/22), stable electrolytes, glucose of 126, initial high sensitivity trop of 28 with a BNP of 287, and covid negative. Doppler of the RLE was read as "No evidence of deep venous thrombus.". Chest xray was read as "Cardiomegaly and mild pulmonary edema. No acute fractures are seen.". Xray of the BL shoulders was read as "Degenerative changes in the bilateral shoulders without evidence of acute fracture.". prior to admission the patient was given 1gm PO tylenol and 60 mg IV lasix. At the time of the exam the patient was resting comfortably in bed in no acute distress with her and Daughter and primary caregiver (Kalie) at bedside, history was obtained from all. They state that she came to the ED today due to her increased swelling in her abdomen and RLE. They called her PCP this morning regarding the issues and they recommended she be evaluated in the ED. The patient states that she also has been falling again recently. Due to here BL lower extremity weakness from her previous spine surgery she uses a motorized wheelchair but usually tries to transition herself too and from her bed or lift chair. Her will also try to help but the patient can be stubborn and not ask for help. Her last fall was on 12/09/22. She and her state that she was in her lift chair at home and was trying to transition to her motorized wheelchair. Her was helping her put she slipped and fell on her left shoulder. She also hit the left side of her face/left ear. She denies losing consciousness but has multiple bruises on her face and left arm from the recent fall. Her daughter states that she did have home PT/OT coming in a few times a week but the patient's prescription ran out and they are not coming at this time. The patient follows with the [facility] cardiology and CHF teams. Her home dose of lasix was recently increased from 120 mg PO in the am and 80 in the pm to 120 mg PO BID; this is in addition to her BID spironolactone. Despite the increased dosing she is still having increased swelling in her abdomen and RLE. Per chart review, she was recently see by GI on 11/14/22 for routine colon cancer screening. They believed that her abdominal swelling and lower extremity swelling were likely due to her CHF. When asked, she is supposed to be using her home CPAP machine HS but has not. She states it's because her hospital bed where she normally tries to sleep is in their kitchen. When she can't fall asleep she will often transfer to the recliner in the living room. I stressed the importance of using her CPAP and her daughter agrees. She denies recent fevers, chills, headache, changes in vision, hearing, taste, and smell, chest pain, abdominal pain, nausea, vomiting, diarrhea, dysuria, hematuria, bloody BM's, and melena. The patient states that she has been unable to lay flat at night due to her SOB. I spoke to them regarding code status, the patient wishes to be a full code at this time. If she could not make decisions herself she would want her Daughter, Kalie, to make them for her. [place] refer to Dr. Palmer's attestation for any changes to the treatment plan Principal Diagnosis acute exacerbation of HFpef Right sided heart failure peripheral edema/anasarca chronic kidney disease 3 Discharge Exam pt has less shortness of breath but is with DIALLO has significant edema, to LE and abdomen Discharge Data Allergies Allergy/AdvReac Type Severity Reaction Status Date / Time capsaicin Allergy Unknown SHORTNESS Verified 12/06/22 13:04 OF BREATH diclofenac Allergy Unknown SHORTNESS Verified 12/06/22 13:04 OF BREATH metoclopramide [From Reglan] Allergy Unknown "went Verified 12/06/22 13:04 crazy" NSAIDS (Non-Steroidal Allergy Unknown Unknown/pt Verified 12/06/22 13:04 Anti-Inflamma not sure about this Consultations 12/13/22 14:26 ED Decision to Admit Stat 12/13/22 17:15 [facility] CHF Program Referral Routine 12/14/22 15:12 Consult Orthopedic Surgery Routine 12/15/22 16:32 Consult Nephrology Routine Ordered Studies 12/13/22 12:03 US venous doppler LE RT Stat 12/15/22 09:55 US Renal Bladder [US renal/blad retro comp] Routine 12/18/22 US abdomen ltd ascites Urgent Hospital Course (1) Acute exacerbation of CHF (congestive heart failure): Patient presented after a fall (multiple falls at home, on eliquis). CT head negative on admit, other imaging negative for trauma (does have subacute R metatarsal fx R foot though on imaging obtained after admit) Acute on chronic HFpEF, RIGHT SIDED HEART FAILURE in patient w/ Hx CAD s/p CABG, afib on Eliquis (follows w/ Dr Hernandez/[facility]) Patient did not respond to escalating doses of outpatient diuretics and is now on inpatient parenteral diuretics with eventual transition to oral medications Nephrology consulted for assistance w/ volume management CHF clinic also following Procrit given 12/18/22 by nephro due to anemia of chronic disease associated with chronic kidney disease Unable to get paracentesis more Anasarca than Ascites Restart eliquis 12/18/22 Continue to monitor weights/I&O, CHF clinic f/u Nephrology recommending 0.5 to 1 Liter net negative ECHO unchanged from prior, EF 50-55%, borderline global hypokinesis of left ventricle (consider outpatient R heart cath) Continued compliance w/ CPAP recommended Patient tells me she is using at night (2) Hyponatremia: no lightheaded/dizziness reported Started sodium chloride 2gm x 1 today and then 1gm BID Normal salt in diet continue 1500 fluid restriction Nephrology recommending IV diuretics until can achieved a net loss of 0.5 to 1 Liter daily (3) Fall: mechanical falls 2nd LE weakness from prior back surgery/partial paraplegia, volume overload, increased weight of lower extremities, CHF, anemia, possible UTI CT head negative, trauma imaging neg subacute and limited metatarsal fx R foot, non-weight bearing, PT/OT consultations, ortho consulted wound RN consulted for R heel wound UA - possible UTI in patient w/ chronic suprapubic catheter 2nd to neurogenic bladder --> 12/18/22 ceftriaxone IV cultures negative x2 we did discontinue antibiotics Dopplers NEGATIVE for DVT R foot heel wound/ulcer and fracture DM foot ulcer stage I acute unstable problem -- xray w/ subacute fx distal 5th metatarsal, ortho consulted. no treatment - wound RN on consult for wound, no drainagif any drainage, would collect sample Physical Therapy reconsulted Per patient and her she was standing at times. She does have a wheelchair and a elsie lift but not always needed. (4) Anasarca: Directly affecting her ability to ambulate due to the weight of her legs due to her significant edema this is a chronic and stable problem which is progressed Diuretics as outlined above paracentesis not indicated due to lack of enough ascites NO PAIN on exam, no concerns for SBP appears most recent c-scope/egd w/ Dr Haywood in September 2022--> C-scope notes redundant colon, referred for virtual colonoscopy/ct colonography (done in October -- normal, noted cardiomegaly/volume overload, anasarca, multiple stable subcentimeter pulm nodules stable since PET may 2022) Normal Platelets, likely ascites secondary to right heart failure Restarted Eliquis (5) Anemia: Chronic and stable 2nd to CKD/chronic illness and iron deficiency. no bleeding reported TSH wnl Transferrin sat low at 10% EPO 12/14, to continue weekly retacrit w/ [facility] hgb improved on repeat, around baseline and given dose of Venofer IV as well, can repeat in AM (Iron 15, TIBC 150, transferrin 102, unsat IBC 135 and trans % sat 10) On PO iron DRESSER TENDER as well monitor CBC (6) Catheter-associated urinary tract infection: Ruled out (7) Atrial fibrillation: Chronic and stable, rate controlled, continues on metoprolol Eliquis 5mg BID -- despite high risk w/ falls, is not very ambulatory at baseline and rec continuing AC (8) CAD (coronary artery disease): No CP reported, trops minor elevation, 2nd to CHF/anemia as above EKG w/ CP Monitor on tele (9) Elevated troponin: Acute self-limited, demand from CHF exacerbation/anemia ECHO limited ordered as above (10) Chronic kidney disease, stage 3: Chronic and unstable with recent adjustment of diuretic therapy nephro consulted for additional assistance w/ diuretics given CKD/cirrhosis as well (11) Sleep apnea: Continue to educate and stress the importance of compliance HS CPAP ordered Encouraged use (12) Type 2 diabetes mellitus with kidney complication, with long-term current use of insulin: Chronic and stable last A1c 5.6 Monitor BSG ACHS, goal range is 110-140 Lantus 5u BID, CRF 40, CR 13 BSGs acceptable, continue to monitor (13) Hypertension: Chronic and stable stable Continue metoprolol, hydralazine Lasix 40mg bid plus spironolactone Total Time Total Time Spent Total Time Spent (In Minutes): It required greater than 30 minutes to prepare this patient for discharge Discharge Plan Discharge Items Patient Disposition: Transfer Inpatient Rehab Fac Reason For Visit: RLE SWELLING, MULTIPLE FALLS Discharge Diagnosis: acute exacerbation of HFpef Right sided heart failure peripheral edema/anasarca chronic kidney disease 3 Activity: Per Instructions section Activity Comment: per PT/OT instructions Non-emergency contact: Primary Care Provider and Outreach Liaison Call non-emergency contact if: your symptoms worsen Follow-up/Referrals: Jaquelin Crowley MD [Primary Care Provider] - Diet: Carb Consistent or DM2 and Low Sodium (2gm) Addtl Attending Provider Instructions: Patient has a challenging issue as she is got chronic kidney disease, anemia of chronic disease, and peripheral edema anasarca from right-sided heart failure. Attempts at diuresis have resulted in previous acute kidney injury. Given her body swelling her legs are heavy she is difficult to move about which limits her physical mobility. At this time we are choosing a diuretic plan however this will need to be adjusted based upon her serology and also fluid retention/body weight. We are at a starting point at discharge but fully expect that you may need to amend her diuretic medication and pay attention to her electrolytes as well as possible worsening of her kidney disease. With regard to her chronic kidney disease nephrology does follow the patient is on salt tablets which certainly does affect her peripheral edema, received erythropoietin 40,000 units on 12/18/2022 and is recommending a continued fluid restriction of 1500 mL a day they also report consideration of adding metolazone Patient has high readmission potential Pending Studies at Discharge: No Stand-Alone Forms: My [facility] Skilled Items Patient informed of condition?: Yes DNR: No Discharge Level of Care: Acute rehab Communicable Disease: No Discharge Prognosis: Stable Lines: None Urinary Catheter: No Medications and DC Order Prescriptions: New ipratropium-albuterol 0.5 mg-3 mg(2.5 mg base)/3 mL Solution For Nebulization 3 ml NEB QIDR Qty: 30 0RF spironolactone 25 mg Tablet 50 mg PO BID Qty: 120 0RF docusate sodium 100 mg Capsule 100 mg PO BID Qty: 30 0RF sodium chloride 1,000 mg Tablet,Soluble 1,000 mg PO BID Qty: 60 0RF insulin glargine [Lantus U-100 Insulin] 100 unit/mL Solution 5 unit subcut BID Qty: 10 0RF insulin aspart U-100 [Novolog U-100 Insulin aspart] 100 unit/mL Solution 1 unit SC ACHS Qty: 10 0RF Rx Instructions: Goal BSG Range: Low 110 mg/dL, High 140 mg/dL --Correction Factor: 40 mg/dL/unit --Carbohydrate ratio = 13 g/unit furosemide [Lasix] 40 mg tablet 40 mg PO BID Qty: 60 0RF Continued pantoprazole 40 mg tablet,delayed release (DR/EC) 40 mg PO DAILY Qty: 90 3RF rosuvastatin 40 mg tablet 40 mg PO DAILY Qty: 90 3RF amitriptyline 50 mg tablet 50 mg PO HS Qty: 90 1RF metoprolol succinate 25 mg tablet extended release 24 hr 50 mg PO QAM Qty: 180 1RF allopurinol 100 mg tablet 100 mg PO QAM Qty: 90 1RF hydralazine 25 mg tablet 50 mg PO TID Qty: 90 0RF Eliquis 5 mg tablet 5 mg PO BID Qty: 180 3RF ferrous sulfate 325 mg (65 mg iron) tablet 325 mg PO QAM lidocaine [Lidoderm] 5 % adhesive patch,medicated 1 patch topical UD PRN (Reason: Pain) Rx Instructions: leave on most painful area for up to 12 hrs magnesium chloride 64 mg tablet extended release 64 mg PO TID acetaminophen [Tylenol] 325 mg Tablet 650 mg PO UD PRN (Reason: Pain) ropinirole 5 mg tablet 5 mg PO QID cholecalciferol (vitamin D3) [Vitamin D3] 125 mcg (5,000 unit) tablet 2,000 mcg PO QAM Discontinued furosemide [Lasix] 40 mg tablet 120 mg PO BID Qty: 180 11RF spironolactone 25 mg tablet 25 mg PO BID Qty: 60 5RF Levemir U-100 Insulin 100 unit/mL solution See Rx Instructions subcut BID Rx Instructions: 12 units in am , 8 units in pm subcutaneously twice a day; insulin aspart U-100 100 unit/mL solution 5 unit subcut DAILY Label Comments: in between use novolog on sliding scale albuterol sulfate [Ventolin HFA] 90 mcg/actuation HFA aerosol inhaler 1 puff INHALATION Q6 PRN (Reason: Shortness Of Breath Or Wheezing) Discharge Orders: Discharge Order- CHF (Routine); Ordered 12/21/22 Ordered By: Jaime Rodrigues Admission Data Admit Date/Time: 12/15/22 16:33 Attending Provider: Jaime Rodrigues Admit Provider: Galdino Palmer Primary Care Provider: Jaquelin Crowley V. Other Providers: Galdino Palmer ; Melania French ; Dakotah Roberts ; Kenneth Cordoba ; [facility] Coding Level of Care Code HOSP INP/OBS DISCH >30 MIN Diagnoses Acute exacerbation of CHF (congestive heart failure) I50.813 Heart failure type: right-sided Hyponatremia E87.1 Fall W19.XXXA Anasarca R60.1 Anemia D64.9 Anemia type: unspecified type Catheter-associated urinary tract infection T83.511A; N39.0 Atrial fibrillation I48.20 Atrial fibrillation type: unspecified chronic CAD (coronary artery disease) I25.10 Coronary Disease-Associated Artery/Lesion type: kake artery [place] vs. transplanted heart: kake heart Associated angina: without angina Elevated troponin R77.8 Chronic kidney disease, stage 3 N18.30 Chronic kidney disease stage 3 subtype: unspecified whether 3a or 3b Sleep apnea G47.30 Type 2 diabetes mellitus with kidney complication, with long-term current use of insulin E11.29; Z79.4 Hypertension I10 Hypertension type: unspecified
== END 2022-12-21 15:12 | DRG 291 ==
LOC: 2N 11:22 → ED 11:22 → SUATTDRO 14:48 → 2N 18:30 → SUATTDRO 12-15 16:33